=== PATIENT | female | born 1945 | race Caucasian/White ===

== ENCOUNTER 2023-08-19 13:12 | Outpatient (OUT) | payer MEDICARE, SELFPAY ==
--- NOTE | 2023-08-19 15:48 | P.CN_ITS ---
Consult Note: HPI Data of Consult Patient: new to practice Consult date: 08/19/23 Requesting Physician: Mere Woodard MD Primary Care Provider: YOLA AMES Consult Narrative Reason for consult: low back, left hip pain Narrative: 78yof who presents for evaluation. worsening low back and left hip pain. imaging shows severe scoliosis with degenerative changes. had left hip replaced, though states this pain feels different. primarily utilizes tylenol, which does not help. has tried >6 weeks of provider directed home exercises, with minimal benefit. denies adverse med side effects. cc:: CC: Mere Woodard MD Review of Systems ROS Status of ROS 10 or more systems reviewed and unremark able except as noted in history and below Meds Home Medications and Allergies Home Medications ?Medication ?Instructions ?Recorded ?Confirmed ?Type acetaminophen 650 mg 650 mg PO Q12H PRN pain 08/19/23 08/19/23 History tablet,extended release (Tylenol Arthritis Pain) alendronate 70 mg tablet 70 mg PO QWEEK 08/19/23 08/19/23 History celecoxib 200 mg capsule (Celebrex) 200 mg PO BID 08/19/23 08/19/23 History famotidine 20 mg tablet 20 mg PO DAILY 08/19/23 08/19/23 History ferrous sulfate 325 mg (65 mg 325 mg PO DAILY 08/19/23 08/19/23 History iron) tablet (Feosol) ferrous sulfate 325 mg (65 mg 325 mg PO DAILY 08/19/23 08/19/23 History iron) tablet (Feosol) metoprolol succinate 25 mg 25 mg PO BID 08/19/23 08/19/23 History tablet,extended release 24 hr tolterodine 2 mg tablet 2 mg PO DAILY 08/19/23 08/19/23 History Allergies Allergy/AdvReac Type Severity Reaction Status Date / Time No Known Drug Allergies Allergy Verified 08/19/23 15:04 Exam Narrative Exam Narrative: Psych-alert and oriented x 3. Attentive and appropriate, constitutionally normal, displays normal mood and affect per situation. There are no obvious deficits in memory, reasoning, or intellect.? Skin-no obvious rashes, bruising, erythema noted to the patient's area of pain.? Extremities- extremities are warm with minimal edema and palpable pulses. Lumbar-tenderness to palpation noted in the lumbar spine and paraspinal musculat ure. Pain is elicited with flexion, extension, and lateral rotation of the lumbar spine. Range of motion is diminished with these motions. Facet loading maneuvers are positive.? Strength-noted to be unremarkable with the exception of decreased strength rated at 4 out of 5 in left quadriceps femoris, anterior tibialis. Sensory-no notable sensory deficits in the bilateral lower extremities to touch or pinprick in all dermatomal distributions with the exception to decreased sensation to the left L4, 5 dermatomal distribution Coordination remains intact.? Gait remains non-antalgic Assessment and Plan Assessment and Plan (1) Lumbar stenosis with neurogenic claudication: Plan 78yof who presents for evaluation. failed conservative measures, as noted. imaging reviewed. given worsening symptoms, will have her undergo lumbar mri without contrast. she is in agreement. meds reviewed, will trial celebrex 200mg bid prn. follow up after imaging.
== END 2023-08-19 13:13 | disposition home or self-care (01) ==
LOC: PM 13:13
PROVIDERS: PCP Family Medicine; Visit Provider Anesthesiology
DX: M48.062 Spinal stenosis, lumbar region with neurogenic claudication (principal)
CPT/HCPCS: G0463

== ENCOUNTER 2023-08-26 14:18 | Outpatient (OUT) | payer MEDICARE, SELFPAY ==
--- NOTE | 2023-08-26 14:23 | MR_ITS ---
[facility] [id number] Patient Name: NIKKY GUTIERREZ MRN: [id number] date: 1945 Sex: F Assigned Patient Location: MRI Current Patient Location: MRI Accession/Order Number: [id number] Exam Date: 08/26/2023 14:42 Report Date: 08/26/2023 15:58 At the request of: KAILA HART Procedure: MR lumbar spine wo con MR lumbar spine wo con, 08/26/2023 2:42 PM EDT INDICATION: lumbar Stenosis COMPARISON: There is no appropriate prior study for comparison. TECHNIQUE: Multiplanar, multisequential MRI images of lumbar spine were obtained without contrast. FINDINGS: For dictation purposes, the lowest complete disc space in the lumbar spine considered as L5-S1. There is significant dextroscoliosis centered on L3-L4. The vertebral height is relatively preserved. Bilateral renal lesions with T2 prolongation not fully characterized by this study and statistically may suggest simple renal cysts. The conus medullaris is at the level of L1. No signal abnormality within the visualized spinal cord is noted. At the level of T12-L1 and L1-L2, there are disc bulge with moderate bilateral neuroforaminal narrowing and no canal stenosis. At the level of L2-L3, there are disc bulge with mild right and severe left neuroforaminal narrowing and no canal stenosis. At the level of L3-4, there are disc bulge with mild bilateral neuroforaminal narrowing and no canal stenosis. At the level of L4-5, there are disc bulge with mild left and moderate right neuroforaminal narrowing and mild canal stenosis. At the level of L5-S1, there are disc bulge with superimposed central annular fissure mild left and moderate right neuroforaminal narrowing and no canal stenosis. The paraspinal muscles are unremarkable. MR/MR lumbar spine wo con IMPRESSION: Severe dextroscoliosis with moderate degenerative changes of lumbar spine in particular at L2-L3 and L4-5. Electronically authenticated by: HOMAR SAENZ Date: 08/26/2023 15:58
== END 2023-08-26 14:19 | disposition home or self-care (01) ==
LOC: MRI 14:18
PROVIDERS: PCP Family Medicine; Visit Provider Anesthesiology
DX: M48.062 Spinal stenosis, lumbar region with neurogenic claudication (principal); M51.36 Other intervertebral disc degeneration, lumbar region
CPT/HCPCS: 72148

== ENCOUNTER 2023-08-29 08:54 | Outpatient (OUT) | payer MEDICARE, SELFPAY ==
--- NOTE | 2023-08-29 09:41 | P.CN_ITS ---
Consult Note: HPI Data of Consult Patient: new to practice Consult date: 08/19/23 Requesting Physician: Teresa Lynn NP Primary Care Provider: YOLA AMES Consult Narrative Reason for consult: low back, left hip pain Narrative: 78yof who presents for evaluation. worsening low back and left hip pain. imaging shows severe scoliosis with degenerative changes. had left hip replaced, though states this pain feels different. primarily utilizes tylenol, which does not help. has tried >6 weeks of provider directed home exercises, with minimal benefit. denies adverse med side effects. recent lumbar MRI consistent with degenerative changes and lumbar stenosis. has only taken celebrex once or twice without side effects, unsure of improvement or not. cc:: CC: Teresa Lynn NP Review of Systems ROS Status of ROS 10 or more systems reviewed and unremark able except as noted in history and below Musculoskeletal Reports: back pain and joint pain Meds Home Medications and Allergies Home Medications ?Medication ?Instructions ?Recorded ?Confirmed ?Type acetaminophen 650 mg 650 mg PO Q12H PRN pain 08/19/23 08/19/23 History tablet,extended release (Tylenol Arthritis Pain) alendronate 70 mg tablet 70 mg PO QWEEK 08/19/23 08/19/23 History celecoxib 200 mg capsule (Celebrex) 200 mg PO BID 08/19/23 08/19/23 History famotidine 20 mg tablet 20 mg PO DAILY 08/19/23 08/19/23 History ferrous sulfate 325 mg (65 mg 325 mg PO DAILY 08/19/23 08/19/23 History iron) tablet (Feosol) ferrous sulfate 325 mg (65 mg 325 mg PO DAILY 08/19/23 08/19/23 History iron) tablet (Feosol) metoprolol succinate 25 mg 25 mg PO BID 08/19/23 08/19/23 History tablet,extended release 24 hr tolterodine 2 mg tablet 2 mg PO DAILY 08/19/23 08/19/23 History Allergies Allergy/AdvReac Type Severity Reaction Status Date / Time No Known Drug Allergies Allergy Verified 08/19/23 15:04 Exam Constitutional Documenting provider has reviewed patient's vital signs: yes Common normals: no apparent distress, oriented x3, healthy appearing, alert and well nourished General appearance: cooperative HENMT Common normals: normocephalic, hearing grossly normal bilaterally and moist oral mucous membranes Head and scalp: normocephalic Eye Common normals: PERRL Pupil: PERRL Neck & C-Spine Common normals: full ROM General: normal visual inspection Chest Common normals: inspection of chest normal Respiratory Common normals: normal respiratory effort, no retractions and no use of accessory muscles Back & Pelvis Lumbar spine/lower back: lumbar spinal tenderness and straight leg raise negative bilaterally Sacroiliac joints: SI joint(s) abnormal (left positive [facility]) Other: decreased sensation following left L2,3,4 dermatomal pattern, increased with ambulation and activity Neuro Common normals: oriented x3, CN's II-XII intact bilaterally, moves all extremities, no focal motor deficits, no sensory deficits noted and deep tendon reflexes 2+ bilaterally Sensorium/orientation: alert Motor exam: strength 5/5 throughout and no movement abnormalities noted Psych Common normals: mental status grossly normal, thought process normal, cooperative, affect normal, speech normal and activity/motor behavior normal Speech: normal speech Thought process: normal thought process Results Imaging Lumbar MRI: Radiologist's impression: At the level of T12-L1 and L1-L2, there are disc bulge with moderate bilateral neuroforaminal narrowing and no canal stenosis. At the level of L2-L3, there are disc bulge with mild right and severe left neuroforaminal narrowing and no canal stenosis. At the level of L3-4, there are disc bulge with mild bilateral neuroforaminal narrowing and no canal stenosis. At the level of L4-5, there are disc bulge with mild left and moderate right neuroforaminal narrowing and mild canal stenosis. At the level of L5-S1, there are disc bulge with superimposed central annular fissure mild left and moderate right neuroforaminal narrowing and no canal stenosis. The paraspinal muscles are unremarkable. Assessment and Plan Assessment and Plan (1) Lumbar stenosis with neurogenic claudication: Assessment and Plan: The patient has had over 3 months of moderate to severe low back and left leg pain with functional impairment and inadequate response to conservative care including NSAIDS (unless there are contraindication such as concurrent blood thinners), multiple oral or topical pain medications, and home exercise program/physical therapy.? Patient has completed >6 weeks of guided home exercise program and/or formal physical therapy program without relief of their symptoms.? I have reviewed the imaging of the lumbar spine and no red flags were identified.? We discussed the risks and benefits of the procedure with the patient, and we are NOT planning on using sedation as outlined in the guidelines from Medicare unless there is a documented reason that sedation would be strongly recommended.?? ?The procedure will be completed with fluoroscopic guidance.? (2) Sacroiliitis: Plan left L2-3 L3-4 TFESI under fluoroscopy left SIJ injection under fluoroscopy encouraged celebrex 200mg BID PRN, has taken once or twice without side effects continue HEP as tolerated f/u 2 weeks after injection
== END 2023-08-29 08:55 | disposition home or self-care (01) ==
LOC: PM 08:54
PROVIDERS: PCP Family Medicine; Visit Provider Nurse Practitioner
DX: M48.062 Spinal stenosis, lumbar region with neurogenic claudication (principal); M46.1 Sacroiliitis, not elsewhere classified
CPT/HCPCS: G0463

== ENCOUNTER 2023-09-16 10:26 | Day surgery (SDC) | payer MEDICARE, SELFPAY ==
--- OUTSIDE RECORDS SUMMARY | 2023-09-16 10:35 | XMS_ITS | CCD ---
Author Organization [facility] Care Team Providers Care Clinical Resource Coordinator Name Role Phone Bneji Cantrell MD Unavailable [phone] Lisandra Jimenez MD Primary Care Provider [phone] Tony DE LA CRUZ, Lisandra Kwong Primary Care Provider Vance DE LA CRUZ, Mere Moon Attending Unavailable TONY, LISANDRA Kwong Attending Unavailable APLING, FLORENCE Duenas Attending Unavailable APLING, FLORENCE Duenas Referring Unavailable TONY, LISANDRA Kwong Attending Unavailable APLING, FLORENCE Duenas Attending Unavailable APLING, FLORENCE Duenas Attending Unavailable TONY, LISANDRA Kwong Attending Unavailable LEIAYANETH KOTHARI Attending Unavailable TONY, LISANDRA Kwong Referring Unavailable BOYCE, BELÉN Attending Unavailable TONY, LISANDRA Kwong Referring Unavailable BOYCE, BELÉN Attending Unavailable TONY, LISANDRA Kwong Referring Unavailable BOYCE, BELÉN Attending Unavailable TONY, LISANDRA Varghese Referring Unavailable LEAIYANETH KOTHARI Attending Unavailable TONY, LISANDRA Kwong Referring Unavailable BOYCE, BELÉN Attending Unavailable TONY, LISANDRA Varghese Referring Unavailable LEIAYANETH KOTHARI Attending Unavailable TONY, LISANDRA Varghese Referring Unavailable CLINTDENISHA CAGE Attending Unavailable Allergies Allergy Classification Reported Allergen(s) Allergy Type Date of Onset Reaction(s) Facility (8 sources) diphenhydrAMINE Drug Allergy [address] [facility] (8 sources) Sulfonamides (Antibiotic) Drug Allergy 2 Other (See Comments) [facility] Medications Current Medications Medication Drug Class(es) Dates Sig (Normalized) Sig (Original) acetaminophen 500 mg oral tablet (8 sources) take 1 tablet by mouth every six hours as needed for pain acetaminophen (TYLENOL EXTRA STRENGTH) 500 mg tablet Take 1 tablet (500 mg total) by mouth every 6 (six) hours as needed for pain. 0 Active Acetaminophen (T YLENOL 8 HOUR ARTHRITIS PAIN PO) Tylenol Arthritis Pain 0 Active alendronic acid 70 mg oral tablet (8 sources) Bisphosphonate Start: 04-16-2022 alendronate (F OSAMAX) 70 mg tablet Take 1 tablet (70 mg total) by mouth every 7 days. Takes it every Saturday 0 04/16/2022 Active take 1 tablet by mouth every we k alendronate (Fosamax) 70 MG tablet 1 TABLET ORALLY ONCE A WEEK ON EMPTY STOMACH WITH FULL GALSS OF WATER AND STAY UPRIGHT FOR 30 MINS 0 Active azelastine hydrochloride 0.5 mg/ml ophthalmic solution (8 sources) Histamine-1 Receptor Antagonist take 1 drop(s) into the eye(s) in the morning azelastine (OPTIVAR) 0.05 % ophthalmic solution Administer 1 drop to both eyes in the morning and 1 drop before bedtime. 0 Active take 1 drop(s) into the eye(s) twice daily azelastine (Optivar) 0.05 % ophthalmic solution INSTILL 1 DROP INTO BOTH EYES TWICE A DAY Ophthalmic for 90 Days 0 Active docusate sodium 100 mg oral capsule (3 sources) take 1 capsule by mouth in the morning docusate sodium (Colace) 100 MG capsule Take 100 mg by mouth in the morning and 100 mg before bedtime. 0 Active famotidine 20 mg oral tablet (8 sources) Histamine-2 Receptor Antagonist Start: 02-05-20 23 take 1 tablet by mouth once daily famotidine (Pepcid) 20 MG tablet Indications: Gastroesophageal reflux disease without esophagitis TAKE 1 TABLET BY MOUTH EVERY DAY 90 tablet 3 02/04/2023 Active ferrous fumarate-vitamin C ER (Lenin-Sequeles 65-25) (6 sources) End: 06-10-19 24 ferrous fumarate-vitamin C ER (Lenin-Sequeles 65-25) Take 1 tablet by mouth in the morning and 1 tablet at noon and 1 tablet in the evening. Take with meals. Do not crush, chew, or split.. 0 06/10/2023 Discontinued (Therapy completed) ferrous fumarate -vitamin C ER (Lenin-Sequeles 65-25) Take 1 tablet by mouth in the morning and 1 tablet at noon and 1 tablet in the evening. Take with meals. Do not crush, chew, or split.. 0 Active ferrous sulfate 325 mg delayed release oral tablet (7 sources) Start: 04-25-2023 take 1 tablet by mouth at mealtime ferrous sulfate 325 (65 Fe) MG EC tablet TAKE 1 TABLET (325 MG) BY MOUTH IN THE MORNING. TAKE WITH MEALS. DO NOT CRUSH, CHEW, OR SPLIT.. 0 04/25/2023 Active fluticasone propionate 0.05 mg/actuat metered dose nasal spray (9 sources) Corticosteroid Start: 06-06-2023 take 2 spray(s) nasal route once daily fluticasone (Flonase) 50 MCG/ACT nasal spray Indications: Postnasal discharge USE 2 SPRAYS IN EACH NOSTRIL ONCE A DAY 48 mL 3 06/06/2023 Active Start: 02-12-2023 End: 06-06-2023 take 1-2 spray(s) nasal route in the morning fluticasone (Flonase) 50 MCG/ACT nasal spray Indications: Postnasal discharge Administer 1-2 sprays into each nostril in the morning. Shake gently. Before first use, prime pump. After use, clean tip and replace cap.. 16 g 2 02/12/2023 06/06/2023 Discontinued take 1 spray(s) nasa l route in the morning fluticasone propionate (FLONASE) 50 mcg/actuation nasal spray Administer 1 spray into each nostril in the morning. 0 Active methylPREDNISolone (7 sources) Corticosteroid Start: 06-05-2023 End: 06-10-2023 take 1 tablet by mouth once methylPREDNISolone (Medrol Dospak) 4 MG tablets Indications: DDD (degenerative disc disease), lumbar Take 1 tablet (4 mg) by mouth 1 (one) time for 1 dose Use as directed by package instructions 1 tablet 0 06/05/2023 06/10/2023 Discontinued (Therapy completed) Start: 06-05-2023 methylPREDNISo lone (Medrol Dospak) 4 MG tablets TAKE 6 TABLETS ON DAY 1 DIRECTED ON PACKAGE AND DECREASE BY 1 TAB EACH DAY FOR A TOTAL OF 6 DAYS 0 06/05/2023 Active metoprolol tartrate 25 mg oral tablet (8 sources) beta-Adrenergic Rosa Start: 01-01-2023 End: 02-29-2024 take 1 tablet by mouth in the morning metoprolol tartrate (Lopressor) 25 MG tablet Indications: Tachycardia Take 1 tablet (25 mg) by mouth in the morning and 1 tablet (25 mg) before bedtime. 180 tablet 3 03/01/2023 02/29/2024 Active oxyCODONE hydrochloride 5 mg oral tablet (1 source) Opioid Agonist take 1 tablet by mouth every six hours as needed for pain oxyCODONE (ROXICODONE) 5 mg immediate release tablet Take 1 tablet (5 mg total) by mouth every 6 (six) hours as needed for pain. For 5 days after sugery Max Daily Amount: 20 mg 0 Active 24 hr tolterodine tartrate 2 mg extended release oral capsule (7 sources) Cholinergic Muscarinic Antagonist Start: 04-30-2023 End: 04-29-2024 take 1 capsule by mouth every twenty-four hours in the morning tolterodine LA (Detrol LA) 2 MG 24 hr capsule Indications: Mixed stress and urge urinary incontinence Take 1 capsule (2 mg) by mouth in the morning. Do not crush, chew, or split.. 30 capsule 11 04/30/2023 04/29/2024 Active Problems Active Problems Problem Classification Problem Date Documented Date Episodic/Chronic Acquired foot deformities (15 sources) Acquired hallux valgus; Translations: [Hallux valgus (acquired), unspecified foot] Onset: 02-22-2022 10-10-2022 Chronic Esophageal disorders (17 sources) Gastroesophageal reflux disease; Translations: [Gastro-esophageal reflux disease without esophagitis] Onset: 02-22-2022 10-10-2022 Chronic Osteoarthritis (20 sources) Osteoarthritis of left hip joint; Translations: [Unilateral primary osteoarthritis, left hip] Onset: 02-22-2022 Resolved: 12-30-2022 10-10-2022 Chronic Osteoporosis (17 sources) Senile osteoporosis; Translations: [Age-related osteoporosis without current pathological fracture] Onset: 02-22-2022 10-10-2022 Chronic Other acquired deformities (8 sources) Other secondary scoliosis, site unspecified; Translations: [Disorder of bone and cartilage, unspecified] Onset: 02-22-2022 10-10-2022 Chronic Other acquired deformities (2 sources) Scoliosis deformity of spine; Translations: [Scoliosis, unspecified] 06-05-2023 Chronic Other bone disease and musculoskeletal deformities (8 sources) Idiopathic scoliosis of thoracic and lumbar spine; Translations: [Other idiopathic scoliosis, thoracolumbar region] Onset: 02-22-2022 11-29-2022 Chronic Other congenital anomalies (7 sources) Porokeratosis; Translations: [Other specified congenital malformations of skin] Onset: 11-29-2022 11-29-2022 Chronic Other connective tissue disease (2 sources) History of total hip arthroplasty; Translations: [Presence of left artificial hip joint] 06-04-2023 Chronic Other upper respiratory infections (1 source) Nasal discharge; Translations: [Postnasal drip] 06-06-2023 Episodic Spondylosis; intervertebral disc disorders; other back problems (20 sources) Lumbar arthritis; Translations: [Spondylosis without myelopathy or radiculopathy, lumbar region] Onset: 02-22-2022 10-10-2022 Chronic Past or Other Problems Problem Classification Problem Date Documented Date Episodic/Chronic Acute posthemorrhagic anemia (10 sources) Anemia following acute postoperative blood loss; Translations: [Acute posthemorrhagic anemia] Onset: 12-30-2022 01-09-2023 Episodic Cardiac dysrhythmias (8 sources) Tachycardia; Translations: [Tachycardia, unspecified] Onset: 12-28-2022 01-09-2023 Episodic Mood disorders (3 sources) Mood disorders Onset: 06-10-2023 06-10-2023 Other connective tissue disease (1 source) History of repair of hip joint; Translations: [Presence of left artificial hip joint] Onset: 12-29-2022 Resolved: 12-30-2022 12-30-2022 Chronic Spondylosis; intervertebral disc disorders; other back problems (10 sources) Disorder of sacrum; Translations: [Sacrococcygeal disorders, not elsewhere classified] Onset: 04-05-2022 11-29-2022 Episodic Results Test Name Value Interpretation Reference Range Facil ity XR Lumbar spine 4 [facility] Result: June 05, 2023 x-rays AP lateral and lateral flexion-extension views of the lumbar spine demonstrate severe scoliosis apex to the right at the thoracolumbar junction of nearly 90 degrees curvature in the coronal plane. There are no definitive fractures identified. Impression: Severe scoliosis Corwin Lui D.O. [facility] XR Lumbar spine 4 ViewsOrder ed By: Denisha Lui on 06-06-2023 [facility] [employer] Work Phone: XR Lumbar spine 4 [facility] Radiology Study observation (narrative) [facility] SCREENING MAMMOGRAM W/JORDAN, BILATERAL*on 04-10-2021 SCREENING MAMMOGRAM W/JORDAN, BILATERAL* COMPARISON: Dating back to March 01, 2020 and February 25, 2019. TECHNIQUE: 2D and 3D Tomosynthesis of the right and left breasts was performed. FINDINGS: Breast composition demonstrates heterogeneously dense parenchyma. Overall appearance is stable. No suspicious microcalcifications, dominant mass lesions, or distortion is present. IMPRESSION: BIRADS 1 - NEGATIVE MAMMOGRAM Board Certified Radiologist. Accredited by the ACR and FDA. MAMMOGRAPHY IS VERY IMPORTANT TO YOUR HEALTH. THE CURRENT [employer] [employer] GUIDELINES RECOMMENDS ANNUAL MAMMOGRAPHY BEGINNING AT AGE 40 THIS FACILITY USES A REMINDER SYSTEM TO ENSURE ALL PATIENTS RECEIVE REMINDER NOTIFICATIONS AT THE APPROPRIATE TIME BASED ON THE RECOMMENDATIONS OF THIS EXAM. Report reported and signed by Filiberto Love on 04/10/2021 1211 [facility] Building Custodian Vital Signs Date Time Vital Sign Value Performing Clinician Juanjosei michael 06-10-2023 10:05-0500 Body height 154.9 cm Lisandra Jimenez MD Work Phone: [facility] 06-10-2023 10:05-0500 Body mass index (BMI) [Ratio] 20.6 kg/m2 Lisandra Jimenez MD Work Phone: [facility] 06-10-2023 10:05-0500 Body weight 49.44 kg Lisandra Jimenez MD Work Phone: [facility] 06-10-2023 10:05-0500 Diastolic blood pressure 68 mm[Hg] Lisandra Jimenez MD Work Phone: [facility] 06-10-2023 10:05-0500 Heart rate 76 /min Lisandra Jimenez MD Work Phone: [facility] 06-10-2023 10:05-0500 Respiratory rate 16 /min Lisandra Jimenez MD Work Phone: [facility] 06-10-2023 10:05-0500 Systolic blood pressure 130 mm[Hg] Lisandra Jimenez MD Work Phone: [facility] Encounters Encounter Date Encounter Type Care Provider Facility Start: 09-12-2023 End: 09-12-2023 ambulatory YANETH DUPREE Not Available Start: 09-09-2023 End: 09-09-2023 ambulatory BELÉN BOYCE Not Available Start: 09-06-2023 End: 09-06-2023 ambulatory YANETH DUPREE Not Available Start: 09-04-2023 End: 09-04-2023 ambulatory BELÉN BOYCE Not Available Start: 09-02-2023 End: 09-02-2023 ambulatory BELÉN BOYCE Not Available Start: 08-26-2023 End: 08-26-2023 ambulatory BELÉN BOYCE Not Available Start: 08-23-2023 End: 08-23-2023 ambulatory YANETH DUPREE Not Available Start: 08-19-2023 End: 08-20-2023 ambulatory Mere Woodard MD Facility:[facility] Start: 08-02-2023 Telephone encounter Maya Villalobos RN [facility] Comment on above: Records, transfer to [facility] Start: 07-30-2023 End: 07-30-2023 ambulatory LISANDRA JIMENEZ Not Available Start: 07-17-2023 End: 07-17-2023 ambulatory FLORENCE B APLING Not Available Start: 06-26-2023 End: 06-26-2023 ambulatory FLORENCE B APLING Not Available Start: 06-11-2023 Refill Lisandra Price Work Phone: [facility] Start: 06-10-2023 Bamboo flowsheet Lisandra Jimenez MD Work Phone: [facility] Start: 06-10-2023 Bamboo flowsheet Lisandra Jimenez MD Work Phone: [facility] Start: 06-10-2023 End: 06-10-2023 ambulatory LISANDRA JIMENEZ Not Available Start: 06-10-2023 End: 06-10-2023 Patient encounter procedure Lisandra Jimenez MD Work Phone: [facility] Comment on above: Routine general medi vicente examination at a [facility] care facility (Primary Dx); Gastroesophageal reflux disease without esophagitis; Arthritis, lumbar spine; Primary osteoarthritis of left hip; Postoperative anemia due to acute blood loss; Age-related osteoporosis without current pathological fracture ([facility] Start: 06-10-2023 End: 06-10-2023 Patient encounter status Lisandra Jimenez MD Work Phone: [facility] Work Phone: Start: 06-06-2023 Refshani Yang Work Phone: [facility] Comment on above: Postnasal discharge Start: 06-05-2023 End: 06-06-2023 ambulatory FLORENCE Duenas APLTANA Not Available Start: 06-05-2023 End: 06-05-2023 ambulatory FLORENCE Duenas APLING Not Available Start: 06-05-2023 End: 06-05-2023 Office outpatient visit 15 minutes Florence Duenas Josetana [facility] Work Phone: [facility] Comment on above: S/P total left hip a rthroplasty (Primary Dx); Low back pain without sciatica, unspecified back pain laterality, unspecified chronicity; DDD (degenerative disc disease), lumbar; Scoliosis of thoracolumbar spine, unspecified scoliosis type Start: 04-30-2023 End: 04-30-2023 ambulatory LISANDRA JIMENEZ Not Available Start: 04-02-2023 End: 04-02-2023 ambulatory DENISHA LUI Not Available Procedures Date Procedure Procedure Detail Performing Clinician Start: 06-05-2023 Radex spine lumbosac ral minimum 4 views Florence Duenas Josetana [facility] Work Phone: Plan of Treatment Date Care Activity Detail Author Start: 06-10-2024 Medicare Annual Wellness (AWV) Medicare Annual Wellness (AWV) [facility] Start: 01-02-2024 Adult BMI Screening Adult BMI Screen ing [facility] Start: 12-29-2023 Influenza vaccination Influenza Vacc ine [facility] Start: 12-29-2023 Tobacco Screening Tobacco Screening [facility] Start: 12-09-2023 End: 12-09-2023 Patient encounter procedure 12/09/2023 9:40 AM EDT Office Visit [facility] [address] [place] [address] Lisandra Jimenez MD [address] [place], [place] [id number] [facility] Start: 08-01-2023 Medicare Annual Wellness (AWV) Medicare Annual Wellness (AWV) [facility] Start: 07-30-2023 End: 07-30-2023 Patient encounter procedure 07/30/2023 9:00 AM EDT Office Visit [facility] [address] [place] [address] Lisandra Jimenez MD [address] [place] [address] [facility] Start: 07-01-2023 End: 07-01-2023 Patient encounter procedure 07/01/2023 9:00 AM EST Office Visit [facility] [address] [place] [address] Florence Robins, [facility] [address] [place] [address] [facility] Start: 06-26-2023 End: 06-26-2023 Patient encounter procedure 06/26/2023 10:00 AM EST Office Visit [facility] [address] [place] [address] Florence Robins, [facility] [address] [place] [address] [facility] Start: 06-10-2023 End: 06-10-2023 Patient encounter procedure [facility] Comment on above: Arrived Start: 02-10-2023 DTaP,Tdap and Td Vaccines (3 - Td or Tdap) DTaP,Tdap and Td Vaccines (3 - T[facility] Start: 12-28-2022 COVID-19 Vaccine ( season) COVID-19 Vaccine ( season) [facility] Start: 2010 [facility] Start: 1957 [facility] Start: [facility] Medicare Annual Wellness Visit Medicare Annual Wellness Visit [facility] Immunizations Immunization Date Immunization Notes Care Provider Fa cilinavdeep 04-08-2023 RSV, recombinant, protein subunit RSVpreF, adjuvant reconstitu, 120mcg/0.5mL, PF (Arexvy) Lisandra Jimenez MD Work Phone: [facility] 01-28-2023 Influenza, High-dose Seasonal, Quadrivalent, Preservative Free Loli Rivera [facility] Work Phone: [facility] Work Phone: 02-06-2022 Influenza, High-dose Seasonal, Quadrivalent, Preservative Free Loli Rivera [facility] Work Phone: [facility] 02-06-2022 Moderna Bivalent Price ster Vaccination Loli Rivera [facility] Work Phone: [facility] 02-06-2022 Moderna SARS-CoV-2 50mcg/0.5mL Booster Lolibrady Rivera [facility] Work Phone: [facility] 02-06-2022 influenza virus vacc ine, unspecified formulation Maya Villalobos RN [facility] 01-26-2021 Influenza, High-dose Seasonal, Quadrivalent, Preservative Free Loli Rivera [facility] Work Phone: [facility] 01-27-2020 Influenza, High-dose Seasonal, Quadrivalent, Preservative Free Loli Rivera [facility] Work Phone: [facility] 03-12-2019 zoster vaccine recombinant Loli Rivera [facility] Work Phone: [facility] 01-26-2019 zoster vaccine, live Loli W olf [facility] Work Phone: [facility] 01-22-2019 influenza, high dose seasonal, preservative-free Loli Rivera [facility] Work Phone: [facility] 01-22-2019 Influenza, High-dose Seasonal, Quadrivalent, Preservative Free Loli Rivera [facility] Work Phone: [facility] 01-22-2019 zoster vaccine recombinant Loli Rivera [facility] Work Phone: [facility] 01-20-2018 influenza, high dose seasonal, preservative-free Loli Rivera [facility] Work Phone: [facility] 01-20-2018 influenza, injectabl e, quadrivalent, preservative free Loli Rivera [facility] Work Phone: [facility] 01-18-2017 influenza, high dose seasonal, preservative-free Loli Rivera [facility] Work Phone: [facility] 01-18-2017 Influenza, High-dose Seasonal, Quadrivalent, Preservative Free Loli Rivera [facility] Work Phone: [facility] 01-17-2016 influenza, high dose seasonal, preservative-free Loli Rivera [facility] Work Phone: [facility] 01-17-2016 pneumococcal conjuga te vaccine, 13 valent Lolibrady Rivera [facility] Work Phone: [facility] 01-12-2015 influenza, high dose seasonal, preservative-free Loli Rivera [facility] Work Phone: [facility] 01-11-2014 influenza, high dose seasonal, preservative-free Loli Rivera [facility] Work Phone: [facility] 02-10-2013 tetanus and diphther ia toxoids, adsorbed, preservative free, for adult use (5 Lf of tetanus toxoid and 2 Lf of diphtheria toxoid) Loli Rivera [facility] Work Phone: [facility] 02-10-2013 tetanus toxoid, redu jessica diphtheria toxoid, and acellular pertussis vaccine, adsorbed Loli Rivera [facility] Work Phone: [facility] 02-06-2013 seasonal influenza, intradermal, preservative free Loli Rivera [facility] Work Phone: [facility] 12-23-2012 zoster vaccine, live Loli W olf [facility] Work Phone: [facility] 12-12-2012 pneumococcal polysaccharide vaccine, 23 valent Loli Rivera [facility] Work Phone: [facility] 02-06-2012 influenza, seasonal, injectable, preservative free Loli Rivera [facility] Work Phone: [facility] 04-17-2004 influenza, seasonal, injectable Loli Rivera [facility] Work Phone: [facility] 04-27-2003 influenza, seasonal, injectable Loli Rivera [facility] Work Phone: [facility] 04-27-2002 influenza, seasonal, injectable Loli Rivera [facility] Work Phone: [facility] 04-01-2001 influenza, seasonal, injectable Loli Rivera [facility] Work Phone: [facility] 03-08-1999 pneumococcal polysaccharide vaccine, 23 valent Loli Rivera [facility] Work Phone: [facility] Payers Date Payer Category Payer Private Health Insurance 2021 Medicare [id number] 2021 Medicare [id number] 1945 Unknown [id number] 2.16. [id number] 1945 Unknown [id number] 2.16.84 [id number] 1945 Unknown [id number] 2.16.84 [id number] 1945 Unknown [id number] 2.16.84 [id number] 1945 Unknown [id number] 2.16.84 [id number] 1945 Unknown [id number] 2.16.84 [id number] 1945 Unknown [id number] 2.16.84 [id number] 1945 Unknown [id number] 2.16.84 0.1.905506.3.579.2.1259 1945 Unknown [id number] 2.16.84 0.1.261507.3.579.2.125 1945 Unknown [id number] 2.16.84 0.1.006366.3.579.2.1259 1945 Unknown [id number] 2.16.84 0.1.688946.3.579.2.9 1945 Unknown [id number] 2.16.84 [id number] 1945 Unknown [id number] 2.16.84 [id number] 1945 Unknown [id number] 2.16.84 [id number] 1945 Unknown [id number] 2.16.840 .[id number] 1945 Unknown [id number] 2.16.840 .[id number] Social History Date Type Detail Facility Start: 05-24-2022 End: 10-10-2022 Tobacco smoking status [facility] Never smoked tobacco [facility] Start: 05-24-2022 End: 10-10-2022 Tobacco use and exposure Smokeless tobacco non-user [facility] Start: 06-05-2023 End: 06-10-2023 Alcohol intake Lifetime non-drinker (finding) [facility] Start: 06-09-2020 End: 12-10-2022 History of Social function [facility] Start: 06-09-2020 End: 12-10-2022 Humiliation, Afraid, Rape, and Kick questionnaire [HARK] [facility] Within the last year , have you been afraid of your partner or ex-partner? No [facility] Attends [employer] Not on file [facility] Do you belong to any clubs or organizations such as alevism groups, unions, fraternal or athletic groups, or school groups? Yes [facility] Are you now , , , , never or living with a partner? Never [facility] How often to you hav e a drink containing alcohol? Never [facility] (I/We) worried wheth er (my/our) food would run out before (I/we) got money to buy more. Never true [facility] Start: 1945 Sex Assigned At Not on file [facility] Start: 07-11-2022 Gender identity Identifies as female gender (finding) [facility] Start: 12-28-2022 Alcohol intake Current non-drinker of alcohol (finding) [facility] Medical Equipment Procedure Code Equipment Code Equipment Origin al Text Equipment Identifier Dates Lens Iol Ultrase rt 11.5d - [id number] - [id number] Start: 04-03-2018 Lens Iol Ultrase rt 13.0d - [id number] - [id number] Start: 08-28-2018 Head Fem 32mm 0m m Vrsy Cocr Hip Rpl [id number] - [id number] - [id number] FDA Start: 12-26-2022 Screw Bn 15mm 6. [address]mm [address] Hip Actb Trlg Strl Rpl [id number] - [id number] - [id number] Start: 12-26-2022 Goals Date Patient Goal Desired Activity /State Personal health goal Comment on above: Formatting of this n ote might be different from the original. Evaluation of progress towards goal: Home with support from friend (staying with pt) and [facility] Clinical Notes 06-05-2023 to 08-02-2023 Telephone Encounter - Maya Villalobos RN - 08/02/2023 2:27 PM EDTTelephone Encounter - Maya Villalobos RN - 08/02/2023 2:27 PM EDTTelephone Encounter - Davina Ayers - 06/11/2023 4:37 PM EST Note Date & Type Note Facility 08-02-2023 Miscellaneous Notes Received a phone call from [facility] for patient records to be transferred. documented in this encounter [facility] 08-02-2023 Telephone encounter Note Received a phone call from [facility] for patient records to be transferred. [facility] 06-11-2023 Telephone encounter Note PT Calling to check status of this request, unsure as how to explain the denial of the refill. [facility] 06-11-2023 Miscellaneous Notes PT Calling to check status of this request, unsure as how to explain the denial of the refill. Medication refused due to failing protocol. Requested Prescriptions Pending Prescriptions Disp Refills methylPREDNISolone (Medrol Dospak) 4 MG tablets 21 tablet Sig: Follow schedule on package instructions There is no refill protocol information for this order documented in this encounter [facility] 06-11-2023 Telephone encounter Note Medication refused due to failing protocol. Requested Prescriptions Pending Prescriptions Disp Refills methylPREDNISolone (Medrol Dospak) 4 MG tablets 21 tablet Sig: Follow schedule on package instructions There is no refill protocol information for this order [facility] 06-10-2023 History of Present illness Narrative Nikky Maria is a 77 y.o. female presents with chief complaint of Medicare Annual Wellness Visit Subsequent HPI: HPI Over the past 2 weeks, how often have you been bothered by any of the following problems? Little interest or pleasure in doing things: Not at all Feeling down, depressed, or hopeless: Not at all Patient Health Questionnaire-2 Score: 0 Over the past 2 weeks, how often have you been bothered by any of the following problems? Trouble falling or staying asleep, or sleeping too much: Not at all Feeling tired or having little energy: Not at all Poor appetite or overeating: Not at all Feeling bad about yourself - or that you are a failure or have let yourself or your family down: Not at all Trouble concentrating on things, such as reading the newspaper or watching television: Not at all Moving or speaking so slowly that other people could have noticed? Or the opposite - being so fidgety or restless that you have been moving around a lot more than usual.: Not at all Thoughts that you would be better off or hurting yourself in some way: Not at all Patient Health Questionnaire-9 Score: 0 Miguel Fall Risk History of Falling, Immediate or Within 3 Months: Yes Secondary Diagnosis: No Ambulatory Aid: Crutches/cane/walker (while at [facility], after her hip surgery) Intravenous Therapy/Heparin Lock: No Gait/Transferring: Normal/bedrest/immobile Mental Status: Oriented to own ability Rivera Fall Risk Score: 40 Health Risk Assessment Form Do you need help eating, bathing, using the toilet, dressing, or getting around your home?: No Can you prepare your own meals?: Yes Can you do your own housework without help?: Yes Can you shop for groceries or clothes without help?: Yes Do you exercise for about 20 minutes 3 or more days a week?: Yes How confident are you that you can control and manage most of your health problems?: Very confident Can you mange your money, credit cards and accounts, pay bills and taxes?: Yes Vision Screening: Yes, no gross abnormalities Hearing Screening: Yes, no gross abnormalities Cognitive Screening Self Assessment: No overt cognitive deficiency is apparent by direct observation Three Word Registration: Apple, Watch, [place] Clock Drawing: Normal Clock - 2 Three Word Recall: All 3 words correct - 3 Total Score (0-5 Points): 5 Pain Assessment Pain Score: 0 - No pain Given prednisone by ortho for hip and low back pain which is helping She is home from rehab and reports doing well SUBJECTIVE: MEDICATIONS: Current Outpatient Medications Medication Instructions Acetaminophen (TYLENOL 8 HOUR ARTHRITIS PAIN PO) Tylenol Arthritis Pain alendronate (Fosamax) 70 MG tablet 1 TABLET ORALLY ONCE A WEEK ON EMPTY STOMACH WITH FULL GALSS OF WATER AND STAY UPRIGHT FOR 30 MINS azelastine (Optivar) 0.05 % ophthalmic solution INSTILL 1 DROP INTO BOTH EYES TWICE A DAY Ophthalmic for 90 Days docusate sodium (COLACE) 100 mg, Oral, 2 times daily famotidine (PEPCID) 20 mg, Oral, Daily ferrous sulfate 325 (65 Fe) MG EC tablet TAKE 1 TABLET (325 MG) BY MOUTH IN THE MORNING. TAKE WITH MEALS. DO NOT CRUSH, CHEW, OR SPLIT.. fluticasone (Flonase) 50 MCG/ACT nasal spray USE 2 SPRAYS IN EACH NOSTRIL ONCE A DAY methylPREDNISolone (Medrol Dospak) 4 MG tablets TAKE 6 TABLETS ON DAY 1 DIRECTED ON PACKAGE AND DECREASE BY 1 TAB EACH DAY FOR A TOTAL OF 6 DAYS metoprolol tartrate (LOPRESSOR) 25 mg, Oral, 2 times daily tolterodine LA (DETROL LA) 2 mg, Oral, Daily, Do not crush, chew, or split. REVIEW OF SYMPTOMS: Review of Systems Constitutional: Negative. Respiratory: Negative. Cardiovascular: Negative. Gastrointestinal: Negative. Neurological: Negative. Psychiatric/Behavioral: Negative. OBJECTIVE: Visit Vitals Ht 5' 1 Wt 109 lb BMI 20.60 kg/m Smoking Status Never BSA 1.46 m Physical Exam Constitutional: Appearance: Normal appearance. She is normal weight. HENT: Head: Normocephalic and atraumatic. Nose: Nose normal. Mouth/Throat: Mouth: Mucous membranes are moist. Eyes: Pupils: Pupils are equal, round, and reactive to light. Cardiovascular: Rate and Rhythm: Normal rate and regular rhythm. Heart sounds: No murmur heard. Pulmonary: Effort: Pulmonary effort is normal. Breath sounds: Normal breath sounds. No wheezing or rhonchi. Musculoskeletal: General: No swelling. Cervical back: Normal range of motion and neck supple. Right lower leg: No edema. Left lower leg: No edema. Skin: General: Skin is warm and dry. Findings: No rash. Neurological: Mental Status: She is alert and oriented to person, place, and time. Sensory: No sensory deficit. Gait: Gait normal. Psychiatric: Mood and Affect: Mood normal. Thought Content: Thought content normal. Judgment: Judgment normal. Ambulating with out assistance ASSESSMENT AND PLAN: Assessment/Plan Problem List Items Addressed This Visit Digestive GERD (gastroesophageal reflux disease) stable Musculoskeletal Osteoarthritis of left hip Per ortho Arthritis, lumbar spine Per ortho Hematologic Postoperative anemia due to acute blood loss Other Visit Diagnoses Routine general medical examination at a health care facility - Primary Osteoporosis - on fosamax Recovering well from joint replacement As of your medicare wellness visit , the medical team reviewed your chart and chronic problems and treatment. Your information regarding healthy diet, activity, immunizations, depression screening, advance directives , activities of daily living medications, cognitive screening and risk factors for disease were reviewed or addressed Recheck in 6months documented in this encounter [facility] 06-05-2023 History of Present illness Narrative Subjective Patient ID: Nikky Maria is a 77 y.o. female. LT Hip 5 months s/p LT ANDERSON 12/26/22. Mild stiffness after sitting for a while, loosens up when she gets up and move around. Denies N/T. She notes stinging that is in her flank that is intermittent in nature, she notes this has been going on for a couple of weeks or a little while she is unsure of when it began. Denies injury. Taking TYL 2 tabs bid prn. Pt is pleased with surgical outcome so far. Has been having stinging pains when walking x last few weeks. Comes and goes. She has been using a heating pad with some relief. Admits CBD cream with little relief. Denies ice. Pain is over low back and LT SI. Not in the hip joint. Notes it hurts to walk. Pain with prolonged sitting 7/10, with walking the pain subsides a little 5/10. Objective Left Hip Exam Muscle Strength Adduction: 4/5 Hip Musculoskeletal Exam Inspection Left Erythema: none Ecchymosis: none Edema: none Palpation Left Tenderness: present Greater trochanteric region pain: none Lower lumbar region pain comment: LT SI Range of Motion Range of motion additional comments: Pain with turning to the left and also side bending to the right Strength Left Extension: 4/5. Flexion: 4/5. Adduction: 4/5. Abduction: 4/5. Special Tests Left Impingement test: negative Trendelenburg test: negative XR lumbar spine complete 4+ views Imaging Result: June 05, 2023 x-rays AP lateral and lateral flexion-extension views of the lumbar spine demonstrate severe scoliosis apex to the right at the thoracolumbar junction of nearly 90 degrees curvature in the coronal plane. There are no definitive fractures identified. Impression: Severe scoliosis Corwin Lui D.O. Assessment/Plan Encounter Diagnoses: ICD-10-CM 1. S/P total left hip arthroplasty Z96.642 2. Low back pain without sciatica, unspecified back pain laterality, unspecified chronicity M54.50 XR lumbar spine complete 4+ views 3. DDD (degenerative disc disease), lumbar M51.36 methylPREDNISolone (Medrol Dospak) 4 MG tablets 4. Scoliosis of thoracolumbar spine, unspecified scoliosis type M41.9 Discussion of options, lidocaine patches and also OTC products, will try MDP, take as directed, no nsaids while taking MDP until 24 hrs after the last dose of MDP, may increase BP/HR , discussed pain management and she notes she has seen dr. Dee and she notes she does not want injections at this time. F/U in 2-3 weeks documented in this encounter [facility] Evaluation note Diagnosis Postnasal discharge Other diseases of nasal cavity and sinuses documented [facility] this [facility]* Diagnosis S/P total left hip arthroplasty- Primary Low back pain without sciatica, unspecified back pain laterality, unspecified chronicity DDD (degenerative disc disease), lumbar Degeneration of lumbar or lumbosacral intervertebral disc Scoliosis of thoracolumbar spine, unspecified scoliosis type documented in this encounter [facility]* Diagnosis Routine general medical examination at a health care facility- Primary Gastroesophageal reflux disease without esophagitis Esophageal reflux Arthritis, lumbar spine Primary osteoarthritis of left hip Postoperative anemia due to acute blood loss Acute posthemorrhagic anemia Age-related osteoporosis without current pathological fracture ([facility]) documented in this encounter [facility]Not on filedocumented in this [facility] Purpose Family History No Family History Records FoundNo Family History Records FoundNo Family History Records Found Advance Directives No Advanced Directives Records FoundDocuments on File Type Date Recorded 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 dical Specialist DATE CREATED AUTHOR AUTHOR'S ORGANIZ ATION 08/21/2023 [facility] DATE CREATED AUTHOR AUTHOR'S ORGANIZ ATION 09/14/[address] [facility] dical Specialists EPIC Reason for Visit (unrecogniz ed section and content) Reason Comments Med Refill Reason Comments Medicare Annual Wellness Visit Subsequen t Reason Onset Date Comments Records, transfer to [facility] 08/02/2023 Care Teams (unrecognized sec tion and content) Clinical Resource Coordinator Relationship Specialty Start Date End Date Benji Cantrell MD [address] [facility] [address] [place] [address] PCP - [employer] 04/29/22 Lisandra Jimenez MD [address] [place] [address] PCP - General Family Medicine 09/10/22 Clinical Resource Coordinator Relationship Specialty Start Date End Date Benji Cantrell MD [address] [facility] [address] [place] [address] PCP - [employer] 04/29/22 Lisandra Jimenez MD [address] [place] [address] PCP - General Family Medicine 09/10/22 Clinical Resource Coordinator Relationship Specialty Start Date End Date Benji Cantrell MD [address] [facility] [address] [place] [address] PCP - [employer] 04/29/22 Lisandra Jimenez MD [address] [facility] [place] [address] PCP - General Family Medicine 09/10/22 Clinical Resource Coordinator Relationship Specialty Start Date End Date Benji Cantrell MD [address] [facility] [address] [place] [address] PCP - [employer] 04/29/22 Lisandra Jimenez MD [address] [facility] [place] [address] PCP - General Family Medicine 09/10/22 Clinical Resource Coordinator Relationship Specialty Start Date End Date Benji Cantrell MD [address] [facility] [address] [place] [address] PCP - [facility] 04/29/22 Lisandra Jimenez MD [address] [place] [address] PCP - General Family Medicine 09/10/22 Clinical Resource Coordinator Relationship Specialty Start Date End Date Lisandra Jimenez MD [address] [place] [address] PCP - General Family Medicine 11/12/16 FOR RECORDS PERTAINING TO PATIENTS WHO ARE OR HAVE BEEN ENROLLED IN A CHEMICAL DEPENDENCY/SUBSTANCEABUSE PROGRAM, SOME INFORMATION MAY BE OMITTED. This clinical summary was aggregated from multiple sources. Caution should be exercised in using it in the provision of clinical care. This summary normalizes information from multiple sources, and as a consequence, information in this document may materially change the coding, format and clinical context of patient data. In addition, data may be omitted in some cases. CLINICAL DECISIONS SHOULD BE BASED ON THE PRIMARY CLINICAL RECORDS. [employer] provides no warranty or guarantee of the accuracy or completeness of information in this document.
[2023-09-16 10:56] VITALS: BP 124/72; PULSE 79; TEMP 36.4; O2SAT 93
[2023-09-16] MEDS: BUPIVACAINE HCL 0.25% PF 25 MG/10 ML VIAL INJ (11:16)
[2023-09-16] MEDS: 0.9 % SODIUM CHLORIDE 10 ML SYRINGE - SALINE FLUSH INJ (11:16)
[2023-09-16] MEDS: DEXAMETHASONE SOD PHOS 10 MG/ML VIAL INJ (11:17)
[2023-09-16] MEDS: LIDOCAINE HCL 2% PF 100 MG/5 ML VIAL INJ (11:17)
[2023-09-16] MEDS: IOHEXOL 240 MG/ML - 10 ML VIAL INJ (11:17)
[2023-09-16 11:18] VITALS: BP 135/90; BP 169/78; PULSE 82; PULSE 90; O2SAT 94
--- NOTE | 2023-09-16 11:23 | P.ON_ITS ---
Date of procedure: 09/16/23 Pre-op diagnosis: Lumbar stenosis with neurogenic claudication Post-op diagnosis: same as pre-op Procedure: Procedure: Left L2-3, L3-4 transforaminal epidural steroid injection Medications: Bupivacaine 0.25% 2cc, lidocaine 2% 1cc, dexamethasone 10mg The patient was seen and examined in the preoperative holding area.? Informed consent was obtained and placed on the chart.? Patient was brought to the medical procedure unit and placed in the prone position where a timeout was completed verifying the correct patient, procedure site, position, and planned special equipment using sterile aseptic technique.? Under direct fluoroscopic visualization a 25-gauge Quincke tipped spinal needle was advanced to the designated neural foramen where contrast dye was injected to show adequate spread.? The needle was inserted at level left L2-3. There was no evidence of vascular or adverse uptake.? Epidural spread was appreciated.? The above- mentioned injectate was then placed in a 1.5 mL aliquot preceded by negative aspiration.? The needle was removed. The needle was inserted and the procedure repeated at level left L3-4.? The surgery site was covered.? Patient was taken to the postprocedural recovery area and monitored for an appropriate length of time before found suitable for discharge in the accompaniment of a responsible adult. Anesthesia: Local Surgeon: Mere Woodard Pathology: none sent Condition: stable Disposition: no change
== END 2023-09-16 11:25 | disposition home or self-care (01) ==
PROVIDERS: PCP Family Medicine; Visit Provider Anesthesiology
DX: M48.062 Spinal stenosis, lumbar region with neurogenic claudication (principal)
CPT/HCPCS: 64483; 64484; J1100; Q9966

== ENCOUNTER 2023-09-30 09:05 | Day surgery (SDC) | payer MEDICARE, SELFPAY ==
--- OUTSIDE RECORDS SUMMARY | 2023-09-30 09:31 | XMS_ITS ---
Patient Summarization (C-CDA 2.1 CCD) Created on: September 30, 2023 NIKKY MARIA : 1945 Sex: Female Author Organization Sample organization Care Team Providers Care Blank Driller Name Role Phone Benji Cantrell MD Unavailable [phone] Tony DE LA CRUZ, Lisandra Kwong Primary Care Provider [phone] Tony DE LA CRUZ, Lisandra Kwong Primary Care Provider Vance DE LA CRUZ, Mere Moon Attending Unavailable Gikimi DE LA CRUZ, Mere Moon Attending Unavailable TONY, LISANDRA Kwong Attending Unavailable APLING, FLORENCE Duenas Attending Unavailable APLING, FLORENCE Duenas Referring Unavailable TONY, LISANDRA Kwong Attending Unavailable APLING, FLORENCE Duenas Attending Unavailable APLING, FLORENCE Duenas Attending Unavailable TONY, LISANDRA F Attending Unavailable LEIAYANETH Attending Unavailable TONY, LISANDRA F Referring Unavailable BOYCE, BELÉN Attending Unavailable TONY, LISANDRA F Referring Unavailable BOYCE, BELÉN Attending Unavailable TONY, LISANDRA F Referring Unavailable BOYCE, BELÉN Attending Unavailable TONY, LISANDRA F Referring Unavailable LEIA, YANETH Corea Attending Unavailable TONY, LISANDRA F Referring Unavailable BOYCE, BELÉN Attending Unavailable TONY, LISANDRA F Referring Unavailable LEIA, YANETH Corea Attending Unavailable TONY, LISANDRA F Referring Unavailable DENISHA LUI Attending Unavailable LEIAYANETH Attending Unavailable TONY, LISANDRA F Referring Unavailable LEIA, YANETH Corea Attending Unavailable TONY, LISANDRA F Referring Unavailable BOYCE, BELÉN Attending Unavailable TONY, LISANDRA F Referring Unavailable BOYCE, BELÉN Attending Unavailable APLING, FLORENCE B Referring Unavailable Allergies Allergy Classification Reported Allergen(s) Allergy Type Date of Onset Reaction(s) Facility (8 sources) diphenhydrAMINE Drug Allergy 8 Unknown [facility] (8 sources) Sulfonamides (Antibiotic) Drug Allergy 2 Other (See Comments) [facility] Encounters Encounter Date Encounter Type Care Provider Facility Start: 09-27-2023 End: 09-27-2023 ambulatory BELÉN BOYCE Not Available Start: 09-24-2023 End: 09-24-2023 ambulatory BELÉN BOYCE Not Available Start: 09-20-2023 End: 09-20-2023 ambulatory YANETH J LEIA Not Available Start: 09-17-2023 End: 09-17-2023 ambulatory YANETH J LEIA Not Available Start: 09-16-2023 End: 09-17-2023 ambulatory Mere Woodard MD Facility:[facility] Start: 09-12-2023 End: 09-12-2023 ambulatory YANETH J LEIA Not Available Start: 09-09-2023 End: 09-09-2023 ambulatory BELÉN BOYCE Not Available Start: 09-06-2023 End: 09-06-2023 ambulatory YANETH J LEIA Not Available Start: 09-04-2023 End: 09-04-2023 ambulatory BELÉN BOYCE Not Available Start: 09-02-2023 End: 09-02-2023 ambulatory BELÉN BOYCE Not Available Start: 08-26-2023 End: 08-26-2023 ambulatory BELÉN BOYCE Not Available Start: 08-23-2023 End: 08-23-2023 ambulatory YANETH J LEIA Not Available Start: 08-19-2023 End: 08-20-2023 ambulatory Mere Woodard MD Facility:[facility] Start: 08-02-2023 Telephone encounter Maya Villalobos RN [facility] Comment on above: Records, transfer to [facility] Start: 07-30-2023 End: 07-30-2023 ambulatory LISANDRA JIMENEZ Not Available Start: 07-17-2023 End: 07-17-2023 ambulatory FLORENCE B APLING Not Available Start: 06-26-2023 End: 06-26-2023 ambulatory FLORENCE B APLING Not Available Start: 06-11-2023 Refill Lisandra Price Work Phone: [facility] Start: 06-10-2023 Camelia flowsheet Lisandra Jimenez MD Work Phone: [facility] Start: 06-10-2023 Benignoboo flowsheet Lisandra Jimenez MD Work Phone: [facility] Start: 06-10-2023 End: 06-10-2023 Patient encounter procedure Lisandra Jimenez MD Work Phone: [facility] Comment on above: Routine general medi vicente examination at a health care facility (Primary Dx); Gastroesophageal reflux disease without esophagitis; Arthritis, lumbar spine; Primary osteoarthritis of left hip; Postoperative anemia due to acute blood loss; Age-related osteoporosis without current pathological fracture ([facility]) Start: 06-10-2023 End: 06-10-2023 Patient encounter status Lisandra Jimenez MD Work Phone: [facility] Work Phone: Start: 06-10-2023 End: 06-10-2023 ambulatory LISANDRA JIMENEZ Not Available Start: 06-06-2023 Refill Loli Yang Work Phone: [facility] Comment on above: Postnasal discharge Start: 06-05-2023 End: 06-05-2023 ambulatory FLORENCE Duenas APLING Not Available Start: 06-05-2023 End: 06-05-2023 ambulatory FLORENCE Duenas APLING Not Available Start: 06-05-2023 End: 06-05-2023 Office outpatient visit 15 minutes Florence Henrique Julienne SOLAR RESOURCE ASSESSOR Work Phone: [facility] Comment on above: S/P total left hip a rthroplasty (Primary Dx); Low back pain without sciatica, unspecified back pain laterality, unspecified chronicity; DDD (degenerative disc disease), lumbar; Scoliosis of thoracolumbar spine, unspecified scoliosis type Start: 04-30-2023 End: 04-30-2023 ambulatory LISANDRA JIMENEZ Not Available Start: 04-02-2023 End: 04-02-2023 ambulatory DENISHA LUI Not Available Medical Equipment Procedure Code Equipment Code Equipment Origin al Text Equipment Identifier Dates Lens Iol Ultrase rt 11.5d - [id number] - [id number] Start: 04-03-2018 Lens Iol Ultrase rt 13.0d - [id number] - [id number] Start: 08-28-2018 Head Fem 32mm 0m m Vrsy Cocr Hip Rpl [id number] - [id number] - [id number], [id number] FDA Start: 12-26-2022 Screw Bn 15mm 6. 5mm St Hip Actb Trlg Strl Rpl [id number] - Sna - [id number] Start: 12-26-2022 Goals Date Patient Goal Desired Activity /State Personal health goal Comment on above: Formatting of this n ote might be different from the original. Evaluation of progress towards goal: Home with support from friend (staying with pt) and [facility] 360 Immunizations Immunization Date Immunization Notes Care Provider Fa [facility] 04-08-2023 RSV, recombinant, protein subunit RSVpreF, adjuvant reconstitu, 120mcg/0.5mL, PF (Arexvy) Lisandra Jimenez MD Work Phone: [facility] 01-28-2023 Influenza, High-dose Seasonal, Quadrivalent, Preservative Free Lloi Rivera SOLAR RESOURCE ASSESSOR Work Phone: [facility] Work Phone: 02-06-2022 Influenza, High-dose Seasonal, Quadrivalent, Preservative Free Loli Rivera SOLAR RESOURCE ASSESSOR Work Phone: [facility] 02-06-2022 Moderna Bivalent Price ster Vaccination Loli Rivera SOLAR RESOURCE ASSESSOR Work Phone: [facility] 02-06-2022 Moderna SARS-CoV-2 50mcg/0.5mL Booster Lolibrady Rivera SOLAR RESOURCE ASSESSOR Work Phone: [facility] 02-06-2022 influenza virus vacc ine, unspecified formulation Maya Villalobos RN [facility] 01-26-2021 Influenza, High-dose Seasonal, Quadrivalent, Preservative Free Loli Rivera SOLAR RESOURCE ASSESSOR Work Phone: [facility] 01-27-2020 Influenza, High-dose Seasonal, Quadrivalent, Preservative Free Loli Rivera SOLAR RESOURCE ASSESSOR Work Phone: [facility] 03-12-2019 zoster vaccine recombinant Loli Rivera SOLAR RESOURCE ASSESSOR Work Phone: [facility] 01-26-2019 zoster vaccine, live Loli W olf SOLAR RESOURCE ASSESSOR Work Phone: [facility] 01-22-2019 influenza, high dose seasonal, preservative-free Loli Rivera SOLAR RESOURCE ASSESSOR Work Phone: [facility] 01-22-2019 Influenza, High-dose Seasonal, Quadrivalent, Preservative Free Loli Rivera SOLAR RESOURCE ASSESSOR Work Phone: [facility] 01-22-2019 zoster vaccine recombinant Loli Rivera SOLAR RESOURCE ASSESSOR Work Phone: [facility] 01-20-2018 influenza, high dose seasonal, preservative-free Loli Rivera SOLAR RESOURCE ASSESSOR Work Phone: [facility] 01-20-2018 influenza, injectabl e, quadrivalent, preservative free Loli Rivera SOLAR RESOURCE ASSESSOR Work Phone: [facility] 01-18-2017 influenza, high dose seasonal, preservative-free Loli Rivera SOLAR RESOURCE ASSESSOR Work Phone: [facility] 01-18-2017 Influenza, High-dose Seasonal, Quadrivalent, Preservative Free Loli Rivera SOLAR RESOURCE ASSESSOR Work Phone: [facility] 01-17-2016 influenza, high dose seasonal, preservative-free Loli Rivera SOLAR RESOURCE ASSESSOR Work Phone: [facility] 01-17-2016 pneumococcal conjuga te vaccine, 13 valent Loli Rivera SOLAR RESOURCE ASSESSOR Work Phone: [facility] 01-12-2015 influenza, high dose seasonal, preservative-free Loli Rivera SOLAR RESOURCE ASSESSOR Work Phone: [facility] 01-11-2014 influenza, high dose seasonal, preservative-free Loli Rivera SOLAR RESOURCE ASSESSOR Work Phone: [facility] 02-10-2013 tetanus and diphther ia toxoids, adsorbed, preservative free, for adult use (5 Lf of tetanus toxoid and 2 Lf of diphtheria toxoid) Loli Rivera SOLAR RESOURCE ASSESSOR Work Phone: [facility] 02-10-2013 tetanus toxoid, redu jessica diphtheria toxoid, and acellular pertussis vaccine, adsorbed Loli Rivera SOLAR RESOURCE ASSESSOR Work Phone: [facility] 02-06-2013 seasonal influenza, intradermal, preservative free Loli Rivera SOLAR RESOURCE ASSESSOR Work Phone: [facility] 12-23-2012 zoster vaccine, live Loli reysef SOLAR RESOURCE ASSESSOR Work Phone: [facility] 12-12-2012 pneumococcal polysaccharide vaccine, 23 valent Loli Rivera SOLAR RESOURCE ASSESSOR Work Phone: [facility] 02-06-2012 influenza, seasonal, injectable, preservative free Lloi Rivera SOLAR RESOURCE ASSESSOR Work Phone: [facility] 04-17-2004 influenza, seasonal, injectable Loli Rivera SOLAR RESOURCE ASSESSOR Work Phone: [facility] 04-27-2003 influenza, seasonal, injectable Loli Rivera SOLAR RESOURCE ASSESSOR Work Phone: [facility] 04-27-2002 influenza, seasonal, injectable Loli Rivera SOLAR RESOURCE ASSESSOR Work Phone: [facility] 04-01-2001 influenza, seasonal, injectable Loli Rivera SOLAR RESOURCE ASSESSOR Work Phone: [facility] 03-08-1999 pneumococcal polysaccharide vaccine, 23 valent Loli Rivera SOLAR RESOURCE ASSESSOR Work Phone: [facility] Medications Current Medications Medication Drug Class(es) Dates [...] split.. 30 capsule 11 04/30/2023 04/29/2024 Active Payers Date Payer Category Payer Private Health Insurance 2021 Medicare [id number] 2021 Medicare [id number] 1945 Unknown [id number] 2.16. [id number] 1945 Unknown [id number] 2.16. 840.1.855703.3.579.2.196 1945 Unknown [id number] 2.16.84 0.1.763580.3.579.2.1258 1945 Unknown [id number] 2.16.84 0.1.287484.3.579.2.125 1945 Unknown [id number] 2.16.84 0.1.993920.3.579.2.1258 1945 Unknown [id number] 2.16.84 0.1.224327.3.579.2.1259 1945 Unknown [id number] 2.16.84 0.1.210708.3.579.2.125 1945 Unknown [id number] 2.16.84 0.1.833241.3.579.2.125 1945 Unknown [id number] 2.16.84 0.1.908615.3.579.2.125 1945 Unknown [id number] 2.16.84 0.1.145954.3.579.2.125 1945 Unknown [id number] 2.16.84 0.1.558663.3.579.2.125 1945 Unknown [id number] 2.16.84 0.1.562766.3.579.2.1259 1945 Unknown [id number] 2.16.84 0.1.505149.3.579.2.1259 1945 Unknown [id number] 2.16.84 0.1.538624.3.579.2.9 1945 Unknown [id number] 2.16.84 0.1.678245.3.579.2.1259 1945 Unknown [id number] 2.16.84 0.1.191540.3.579.2.1259 1945 Unknown [id number] 2.16.84 0.1.524305.3.579.2.9 1945 Unknown [id number] 2.16.84 0.1.533216.3.579.2.9 1945 Unknown [id number] 2.16.84 0.1.226746.3.579.2.9 1945 Unknown [id number] 2.16.840 .1.417248.3.579.2.9 1945 Unknown [id number] 2.16.840 .1.643321.3.579.2.1259 Plan of Treatment Date Care Activity Detail Author Start: 06-10-2024 Medicare Annual Wellness (AWV) Medicare Annual Wellness (AWV) [facility] Start: 01-02-2024 Adult BMI Screening Adult BMI Screen ing [facility] Start: 12-29-2023 Influenza vaccination Influenza Vacc ine [facility] Start: 12-29-2023 Tobacco Screening Tobacco Screening [facility] Start: 12-09-2023 End: 12-09-2023 Patient encounter procedure 12/09/2023 9:40 AM EDT Office Visit [facility] [address] [place] [id number] Lisandra Jimenez MD [address] [place] [address] [facility] Start: 08-01-2023 Medicare Annual Wellness (AWV) Medicare Annual Wellness (AWV) [facility] Start: 07-30-2023 End: 07-30-2023 Patient encounter procedure 07/30/2023 9:00 AM EDT Office Visit [facility] [address] [place] [phone] Lisandra Jimenez MD [address] [place] [address] [facility] Start: 07-01-2023 End: 07-01-2023 Patient encounter procedure 07/01/2023 9:00 AM EST Office Visit [facility] [address] [place] [address] Florence Robins SOLAR RESOURCE ASSESSOR [address] [place] [address] [facility] Start: 06-26-2023 End: 06-26-2023 Patient encounter procedure 06/26/2023 10:00 AM EST Office Visit [facility] [address] [place] [address] Florence Robins SOLAR RESOURCE ASSESSOR [address] [place] [address] [facility] Start: 06-10-2023 End: 06-10-2023 Patient encounter procedure [facility] Comment on above: Arrived Start: 02-10-2023 DTaP,Tdap and Td Vaccines (3 - Td or Tdap) DTaP,Tdap and Td Vaccines (3 - T[facility]ap[facility] Start: 12-28-2022 COVID-19 Vaccine ( season) COVID-19 Vaccine ( season) [facility] Start: 2010 Fall [facility]ening [facility] Start: 1957 [facility] Start: 1945 Medicare Annual Wellness Visit Medicare Annual Wellness Visit [facility] Problems Active Problems Problem Classification Problem Date [...] not elsewhere classified] Onset: 04-05-2022 11-29-2022 Episodic Procedures Date Procedure Procedure Detail Performing Clinician Start: 06-05-2023 Radex spine lumbosac ral minimum 4 views Florence Robins SOLAR RESOURCE ASSESSOR Work Phone: Results Test Name Value Interpretation Reference Range Facil ity XR Lumbar spine 4 [facility] Result: June 05, 2023 x-rays AP lateral and lateral flexion-extension views of the lumbar spine demonstrate severe scoliosis apex to the right at the thoracolumbar junction of nearly 90 degrees curvature in the coronal plane. There are no definitive fractures identified. Impression: Severe scoliosis Corwin Lui D.O. [facility] easy2map XR Lumbar spine 4 ViewsOrder ed By: Denisha Lui on 06-06-2023 [facility] Work Phone: XR Lumbar spine 4 Viewson Radiology Study observation (narrative) [facility] easy2map SCREENING MAMMOGRAM W/JORDAN, BILATERAL*on 04-10-2021 SCREENING MAMMOGRAM [...] VERY IMPORTANT TO YOUR HEALTH. THE CURRENT [employer] GUIDELINES RECOMMENDS ANNUAL MAMMOGRAPHY BEGINNING AT AGE 40 THIS FACILITY USES A REMINDER SYSTEM TO ENSURE ALL PATIENTS RECEIVE REMINDER NOTIFICATIONS AT THE APPROPRIATE TIME BASED ON THE RECOMMENDATIONS OF THIS EXAM. 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 Social History Date Type Detail Facility Start: 06-05-2023 End: 06-10-2023 Alcohol intake Lifetime non-drinker (finding) [facility] Start: 12-28-2022 Alcohol intake Current non-drinker of alcohol (finding) [facility] Start: 06-09-2020 End: 12-10-2022 History of Social function [facility] Start: 06-09-2020 End: 12-10-2022 Humiliation, Afraid, Rape, and Kick questionnaire [HARK] [facility] Start: 05-24-2022 End: 10-10-2022 Tobacco smoking status NHIS Never smoked tobacco [facility] Start: 05-24-2022 End: 10-10-2022 Tobacco use and exposure Smokeless tobacco non-user [facility] Start: 07-11-2022 Gender identity Identifies as female gender (finding) [facility] Start: 1945 Sex Assigned At Not on file [facility] Within the last year , have you been afraid of your partner or ex-partner? No [facility] Attends [employer] Not on file [facility] Do you belong to any clubs or organizations such as presybeterian groups, unions, fraternal or athletic groups, or school groups? Yes [facility] Are you now , , , , never or living with a partner? Never [facility] How often to you hav e a drink containing alcohol? Never [facility] (I/We) worried wheth er (my/our) food would run out before (I/we) got money to buy more. Never true [facility] Vital Signs Date Time Vital Sign Value Performing Clinician Farhad rodriguez 06-10-2023 10:05-0500 Body height 154.9 cm Lisandra Jimenez MD Work Phone: [facility] 06-10-2023 10:05-0500 Body mass index (BMI) [Ratio] 20.6 kg/m2 Lisandra Jimenez MD Work Phone: [facility] 06-10-2023 10:05-0500 Body weight 49.44 kg Lisandra Jimenez MD Work Phone: [facility] 06-10-2023 10:05-0500 Diastolic blood pressure 68 mm[Hg] Lisandra Jimenez MD Work Phone: [facility] 06-10-2023 10:05-0500 Heart rate 76 /min Lisandra Jimenez MD Work Phone: [facility] 06-10-2023 10:05-0500 Respiratory rate 16 /min Lisandra Jimenez MD Work Phone: [facility] 06-10-2023 10:05-0500 Systolic blood pressure 130 mm[Hg] Lisandra Jimenez MD Work Phone: [facility] Clinical Notes 06-05-2023 to 08-02-2023 Telephone Encounter - Maya Villalobos RN - 08/02/2023 2:27 PM EDTTelephone Encounter - Maya Villalobos RN - 08/02/2023 2:27 PM EDTTelephone Encounter - Davina Ayers - 06/11/2023 4:37 PM EST Note Date & Type Note Facility 08-02-2023 Miscellaneous Notes Received a phone call from [facility] for patient records to be transferred. documented in this encounter [facility] 08-02-2023 Telephone encounter Note Received a phone call from [facility] for patient records to be transferred. [facility] 06-11-2023 Telephone encounter Note PT Calling to check status of this request, unsure as how to explain the denial of the refill. [facility] 06-11-2023 Miscellaneous Notes PT Calling to check status of this request, unsure as how to explain the denial of the refill. Medication refused due to failing protocol. Requested Prescriptions Pending Prescriptions Disp Refills methylPREDNISolone (Medrol Dospak) 4 MG tablets 21 tablet Sig: Follow schedule on package instructions There is no refill protocol information for this order documented in this encounter [facility] 06-11-2023 Telephone encounter Note Medication refused due to failing protocol. Requested Prescriptions Pending Prescriptions Disp Refills methylPREDNISolone (Medrol Dospak) 4 MG tablets 21 tablet Sig: Follow schedule on package instructions There is no refill protocol information for this order [facility] 06-10-2023 History of Present illness Narrative Nikky [...] at all Patient Health Questionnaire-9 Score: 0 Rivera Fall Risk History of Falling, Immediate or [...] Recheck in 6months documented in this encounter [facility] 06-05-2023 History of Present illness Narrative Subjective [...] fractures identified. Impression: Severe scoliosis Corwin Lui D.OCayla Assessment/Plan Encounter Diagnoses: ICD-10-CM 1. 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 01/17/2023 11:54 AM Latest Code Status on File Code Status Date Activated Date Inactivated Comments Full Code 12/28/2022 6:14 PM 01/01/2023 3:49 PM Code Status History Code Status Date Activated Date Inactivated Comments Full Code 12/26/2022 10:18 AM 12/27/2022 7:36 PM Additional Source Comments INFORMATION SOURCE (unrecogn ized section and content) DATE CREATED AUTHOR 04/10/2021 [facility] dical Specialist DATE CREATED AUTHOR AUTHOR'S ORGANIZ ATION 09/22/2023 [facility] DATE CREATED AUTHOR AUTHOR'S ORGANIZ ATION 09/28/2023 [facility] dical Specialists EPIC Reason for Visit (unrecogniz ed section and content) Reason Comments Med Refill Reason Comments Medicare Annual Wellness Visit Subsequen t Reason Onset Date Comments Records, transfer to [facility] 08/02/2023 Care Teams (unrecognized sec tion and content) Blank Driller Relationship Specialty Start Date End Date Benji Cantrell MD [address] [place] [address] PCP - [employer] 04/29/22 Lisandra Jimenez MD [address] [facility] [place] [address] PCP - General Family Medicine 09/10/22 Blank Driller Relationship Specialty Start Date End Date Benji Cantrell MD [address] [facility] [address] [place] [address] PCP - [employer] 04/29/22 Lisandra Jimenez MD [address] [facility] [place] [address] PCP - General Family Medicine 09/10/22 Blank Driller Relationship Specialty Start Date End Date Benji Cantrell MD [address] [facility] [address] [place] [address] PCP - [employer] 04/29/22 Lisandra Jimenez MD [address] [facility] [place] [address] PCP - General Family Medicine 09/10/22 Blank Driller Relationship Specialty Start Date End Date Benji Cantrell MD [address] [facility] [address] [place] [address] PCP - [employer] 04/29/22 Lisandra Jimenez MD [address] [facility] [place] [address] PCP - General Family Medicine 09/10/22 Blank Driller Relationship Specialty Start Date End Date Benji Cantrell MD [address] [place] [address] PCP - [employer] 04/29/22 Lisandra Jimenez MD [address] [facility] [place] [place] [address] PCP - General Family Medicine 09/10/22 Blank Driller Relationship Specialty Start Date End Date Lisandra Jimenez MD [address] [facility] [place], [place] [id number] PCP - General Family Medicine 11/12/16 FOR [...] BE BASED ON THE PRIMARY CLINICAL RECORDS. [employer] provides no warranty or guarantee of the accuracy or completeness of information in this document.
[2023-09-30 10:29] VITALS: BP 155/74; PULSE 80; TEMP 36.4; O2SAT 96
[2023-09-30] MEDS: LIDOCAINE HCL 2% PF 100 MG/5 ML VIAL INJ (10:57)
[2023-09-30] MEDS: BUPIVACAINE HCL 0.25% PF 25 MG/10 ML VIAL INJ (10:57)
[2023-09-30] MEDS: IOHEXOL 240 MG/ML - 10 ML VIAL INJ (10:57)
[2023-09-30] MEDS: TRIAMCINOLONE ACETONIDE 40 MG/ML VIAL INJ (10:57)
[2023-09-30 10:59] VITALS: BP 168/72; BP 172/76; PULSE 87; PULSE 90; O2SAT 94; O2SAT 95
--- NOTE | 2023-09-30 10:59 | P.ON_ITS ---
Date of procedure: 09/30/23 Pre-op diagnosis: Left sacroiliitis Post-op diagnosis: same as pre-op Procedure: Procedure: Left sacroiliac joint injection Medications: Bupivacaine 0.25% 3cc, kenalog 40mg After informed consent was obtained, the patient was brought to the medical pro cedure unit and placed in the prone position, when a timeout was completed verifying correct patient, procedure, site, positioning, implant, and/or special equipment.? The skin overlying the area was prepped and draped in standard sterile fashion using alcohol.? A 25-gauge needle was inserted towards the left sacroiliac joint under direct fluoroscopic imaging.? Needle tip was advanced until the joint was encountered.? We instilled a total of 2 mL of solution.? Postoperatively needles were removed.? The patient tolerated the procedure well without complication.? The patient reported reduction in pain symptoms postoperatively. Anesthesia: Local Surgeon: Mere Woodard Pathology: none sent Condition: stable Disposition: no change
== END 2023-09-30 11:04 | disposition home or self-care (01) ==
LOC: SURGOUT 09:06
PROVIDERS: PCP Family Medicine; Visit Provider Anesthesiology
DX: M46.1 Sacroiliitis, not elsewhere classified (principal)
CPT/HCPCS: 27096; Q9966

== ENCOUNTER 2023-10-10 08:50 | Outpatient (OUT) | payer MEDICARE, SELFPAY ==
--- OUTSIDE RECORDS SUMMARY | 2023-10-10 09:10 | XMS_ITS | CCD ---
Author Organization [facility] [employer] Care Team Providers Care Twisting Frame Operator Name Role Phone Benji Cantrell MD Unavailable [phone] Lisandra Jimenez MD Primary Care Provider [phone] Lisandra Jimenez MD Primary Care Provider LISANDRA JIMENEZ Attending Unavailable APLING, FLORENCE Duenas Attending Unavailable APLING, FLORENCE Duenas Referring Unavailable HUI, LISANDRA Kwong Attending Unavailable APLING, FLORENCE Duenas Attending Unavailable APLING, FLORENCE Duenas Attending Unavailable HUI, LISANDRA Varghese Attending Unavailable LEIAYANETH Attending Unavailable HUI, LISANDRA F Referring Unavailable BOYCE, BELÉN Attending Unavailable HUI, LISANDRA F Referring Unavailable BOYCE, BELÉN Attending Unavailable HUI, LISANDRA F Referring Unavailable BOYCE, BELÉN Attending Unavailable HUI, LISANDRA F Referring Unavailable LEIA, YANETH Corea Attending Unavailable HUI, LISANDRA F Referring Unavailable BOYCE, BELÉN Attending Unavailable HUI, LISANDRA F Referring Unavailable LEIA, YANETH Corea Attending Unavailable HUI, LISANDRA F Referring Unavailable CLINTDENISHA Attending Unavailable LEIA, YANETH Corea Attending Unavailable HUI, LISANDRA F Referring Unavailable LEIA, YANETH Corea Attending Unavailable HUI, LISANDRA F Referring Unavailable BOYCE, BELÉN Attending Unavailable HUI, LISANDRA F Referring Unavailable BOYCE, BELÉN Attending Unavailable APLING, FLORENCE Duenas Referring Unavailable BOYCE, BELÉN Attending Unavailable HUI, LISANDRA F Referring Unavailable BOYCE, BELÉN Attending Unavailable HUI, LISANDRA F Referring Unavailable Gieditis , Mere Moon Attending Unavailable Gikevinitis , Mere Moon Attending Unavailable Gikevinitis , Mere Moon Attending Unavailable Allergies Allergy Classification Reported Allergen(s) Allergy Type Date of Onset Reaction(s) Facility (8 sources) diphenhydrAMINE Drug Allergy 8 Unknown [facility] (8 sources) Sulfonamides (Antibiotic) Drug Allergy 2 Other (See Comments) [facility] Medications Current Medications Medication Drug Class(es) [...] identified. Impression: Severe scoliosis Corwin Lui D.O. [facility] XR Lumbar spine 4 ViewsOrder ed By: Denisha Lui on 06-06-2023 [facility] Daric[employer] Work Phone: XR Lumbar spine 4 Viewson Radiology Study observation (narrative) [facility] SCREENING MAMMOGRAM W/JORDAN, BILATERAL*on 04-10-2021 SCREENING MAMMOGRAM [...] VERY IMPORTANT TO YOUR HEALTH. THE CURRENT CITIZEN OF [place] [employer] GUIDELINES RECOMMENDS ANNUAL MAMMOGRAPHY BEGINNING AT AGE 40 THIS FACILITY USES A REMINDER SYSTEM TO ENSURE ALL PATIENTS RECEIVE REMINDER NOTIFICATIONS AT THE APPROPRIATE TIME BASED ON THE RECOMMENDATIONS OF THIS EXAM. Report reported and signed by Filiberto Love on 04/10/2021 1211 Normal [facility] Nozzleman Vital Signs Date Time Vital Sign Value Performing Clinician Faci lity 06-10-2023 10:05-0500 Body height 154.9 cm Lisandra Jimenez MD Work Phone: [facility] 06-10-2023 10:05-0500 Body mass index (BMI) [Ratio] 20.6 kg/m2 Lisandra Jimenez MD Work Phone: [facility] 06-10-2023 10:05-0500 Body weight 49.44 kg Lisandra Jimenez MD Work Phone: [facility] 06-10-2023 10:05-0500 Diastolic blood pressure 68 mm[Hg] Lisandra Jimenez MD Work Phone: [facility] 06-10-2023 10:05-0500 Heart rate 76 /min Lisandra Jimenez MD Work Phone: [facility] 06-10-2023 10:05-0500 Respiratory rate 16 /min Lisandra Jimenez MD Work Phone: [facility] 06-10-2023 10:05-0500 Systolic blood pressure 130 mm[Hg] Lisandra Jimenez MD Work Phone: [facility] Healthcare Encounters Encounter Date Encounter Type Care Provider Facility Start: 10-08-2023 End: 10-08-2023 ambulatory BELÉN BOYCE Not Available Start: 10-03-2023 End: 10-03-2023 ambulatory BELÉN BOYCE Not Available Start: 09-30-2023 End: 09-30-2023 ambulatory Mere Woodard MD Facility: [facility] Start: 09-27-2023 End: 09-27-2023 ambulatory BELÉN BOYCE Not Available Start: 09-24-2023 End: 09-24-2023 ambulatory BELÉN BOYCE Not Available Start: 09-20-2023 End: 09-20-2023 ambulatory YANETH J LEIA Not Available Start: 09-17-2023 End: 09-17-2023 ambulatory YANETH J LEIA Not Available Start: 09-16-2023 End: 09-16-2023 ambulatory Mere Woodard MD Facility: [facility] Start: 09-12-2023 End: 09-12-2023 ambulatory YANETH J [...] J LEIA Not Available Start: 08-19-2023 End: 08-19-2023 ambulatory Mere Woodard MD Facility:[facility] Start: 08-02-2023 Telephone encounter Maya Villalobos RN [facility] Comment on above: Records, transfer to [facility] Start: 07-30-2023 End: 07-30-2023 ambulatory LISANDRA [...] [facility] Start: 06-10-2023 End: 06-10-2023 Patient encounter procedure Lisandra Jimenez MD Work Phone: [facility] Comment on above: Routine general medi vicente examination at a health care facility (Primary Dx); Gastroesophageal reflux disease without esophagitis; Arthritis, lumbar spine; Primary osteoarthritis of left hip; Postoperative anemia due to acute blood loss; Age-related osteoporosis without current pathological fracture ([facility]) Start: 06-10-2023 End: 06-10-2023 Patient encounter status Lisandra Jimenez MD Work Phone: [facility] Work Phone: Start: 06-10-2023 End: 06-10-2023 ambulatory LISANDRA JIMENEZ Not Available Start: 06-06-2023 Refill Loli Yang Work Phone: [facility] Comment on above: Postnasal discharge Start: 06-05-2023 End: 06-05-2023 ambulatory FLORENCE B APLING Not Available Start: 06-05-2023 End: 06-05-2023 ambulatory FLORENCE B APLING Not Available Start: 06-05-2023 End: 06-05-2023 Office outpatient visit 15 minutes Florence Henrique Apling BOW MAKER Work Phone: [facility] Comment on above: S/P total left [...] lumbosac ral minimum 4 views Florence Robins BOW MAKER Work Phone: Plan of Treatment Date Care Activity Detail Author Start: 06-10-2024 Medicare Annual Wellness (AWV) Medicare Annual Wellness (AWV) [facility] Start: 01-02-2024 Adult BMI Screening Adult BMI Screen ing [facility] Start: 12-29-2023 Influenza vaccination Influenza Vacc ine [facility] Start: 12-29-2023 Tobacco Screening Tobacco Screening [facility] Start: 12-09-2023 End: 12-09-2023 Patient encounter procedure 12/09/2023 9:40 AM EDT Office Visit [facility] [address] [facility] [place] [id number] Lisandra Jimenez MD [address] [facility] [place] [address] [facility] Start: 08-01-2023 Medicare Annual Wellness (AWV) Medicare Annual Wellness (AWV) [facility] Start: 07-30-2023 End: 07-30-2023 Patient encounter procedure 07/30/2023 9:00 AM EDT Office Visit [facility] [address] [facility] [place] [id number] Lisandra Jimenez MD [address] [facility] [place], [place] [id number] [facility] Start: 07-01-2023 End: 07-01-2023 Patient encounter procedure 07/01/2023 9:00 AM EST [facility] Visit [facility] [address] [place] [address] Florence Robins, BOW MAKER [address] [place] [address] [facility] Start: 06-26-2023 End: 06-26-2023 Patient encounter procedure 06/26/2023 10:00 AM EST Office Visit [facility] [address] [place] [address] Florence Robins, BOW MAKER [address] [place] [address] [facility] Start: 06-10-2023 End: 06-10-2023 Patient encounter procedure [facility] Comment on above: Arrived Start: 02-10-2023 DTaP,Tdap and Td Vaccines (3 - Td or Tdap) DTaP,Tdap and Td Vaccines (3 - Td or Tdap) [facility] Start: 12-28-2022 COVID-19 Vaccine ( season) COVID-19 Vaccine ( season) [facility] Start: 2010 Fall Risk Screening Fall Risk Screen [facility] Start: 1957 Depression Screening Depression Scre [facility] Start: 1945 Medicare Annual Wellness Visit Medicare Annual Wellness Visit [facility] Immunizations Immunization Date Immunization Notes Care Provider Fa [facility] 04-08-2023 RSV, recombinant, protein subunit RSVpreF, adjuvant reconstitu, 120mcg/0.5mL, PF (Arexvy) Lisandra Jimenez MD Work Phone: [facility] 01-28-2023 Influenza, High-dose Seasonal, Quadrivalent, Preservative Free Loli Rivera BOW MAKER Work Phone: [facility] Work Phone: 02-06-2022 Influenza, High-dose Seasonal, Quadrivalent, Preservative Free Loli Rivera BOW MAKER Work Phone: [facility] 02-06-2022 Moderna Bivalent Price ster Vaccination Loli Rivera BOW MAKER Work Phone: [facility] 02-06-2022 Moderna SARS-CoV-2 50mcg/0.5mL Booster Loli Rivera BOW MAKER Work Phone: [facility] 02-06-2022 influenza virus vacc ine, unspecified formulation Maya Villalobos RN [facility] 01-26-2021 Influenza, High-dose Seasonal, Quadrivalent, Preservative Free Loli Rivera BOW MAKER Work Phone: [facility] 01-27-2020 Influenza, High-dose Seasonal, Quadrivalent, Preservative Free Loli Rivera BOW MAKER Work Phone: [facility] 03-12-2019 zoster vaccine recombinant Loli Rivera BOW MAKER Work Phone: [facility] 01-26-2019 zoster vaccine, live Loli W olf BOW MAKER Work Phone: [facility] 01-22-2019 influenza, high dose seasonal, preservative-free Loli Rivera BOW MAKER Work Phone: [facility] 01-22-2019 Influenza, High-dose Seasonal, Quadrivalent, Preservative Free Loli Rivera BOW MAKER Work Phone: [facility] 01-22-2019 zoster vaccine recombinant Loli Rivera BOW MAKER Work Phone: [facility] 01-20-2018 influenza, high dose seasonal, preservative-free Loli Rivera BOW MAKER Work Phone: [facility] 01-20-2018 influenza, injectabl e, quadrivalent, preservative free Loli Rivera BOW MAKER Work Phone: [facility] 01-18-2017 influenza, high dose seasonal, preservative-free Loli Rivera BOW MAKER Work Phone: [facility] 01-18-2017 Influenza, High-dose Seasonal, Quadrivalent, Preservative Free Loli Rivera BOW MAKER Work Phone: [facility] 01-17-2016 influenza, high dose seasonal, preservative-free Loli Rivera BOW MAKER Work Phone: [facility] 01-17-2016 pneumococcal conjuga te vaccine, 13 valent Loli Rivera BOW MAKER Work Phone: [facility] 01-12-2015 influenza, high dose seasonal, preservative-free Loli Rivera BOW MAKER Work Phone: [facility] 01-11-2014 influenza, high dose seasonal, preservative-free Loli Rivera BOW MAKER Work Phone: [facility] 02-10-2013 tetanus and diphther ia toxoids, adsorbed, preservative free, for adult use (5 Lf of tetanus toxoid and 2 Lf of diphtheria toxoid) Loil Rivera BOW MAKER Work Phone: [facility] 02-10-2013 tetanus toxoid, redu jessica diphtheria toxoid, and acellular pertussis vaccine, adsorbed Loli Rivera BOW MAKER Work Phone: [facility] 02-06-2013 seasonal influenza, intradermal, preservative free Loli Rivera BOW MAKER Work Phone: [facility] 12-23-2012 zoster vaccine, live Loli W olf BOW MAKER Work Phone: [facility] 12-12-2012 pneumococcal polysaccharide vaccine, 23 valent Loli Rivera BOW MAKER Work Phone: [facility] 02-06-2012 influenza, seasonal, injectable, preservative free Loli Rivera BOW MAKER Work Phone: [facility] 04-17-2004 influenza, seasonal, injectable Loli Rivera BOW MAKER Work Phone: [facility] 04-27-2003 influenza, seasonal, injectable Loli Rivera BOW MAKER Work Phone: [facility] 04-27-2002 influenza, seasonal, injectable Loli Rivera BOW MAKER Work Phone: [facility] 04-01-2001 influenza, seasonal, injectable Loli Rivera BOW MAKER Work Phone: [facility] 03-08-1999 pneumococcal polysaccharide vaccine, 23 valent Loli Rivera BOW MAKER Work Phone: [facility] Payers Date Payer Category Payer Private Health Insurance 2021 Medicare [id number] 2021 Medicare [id number] 1945 Unknown [id number] 2.16.84 0.1.810169.3.579.2.1259 1945 Unknown [id number] 2.16.84 0.1.461859.3.579.2.1259 1945 Unknown [id number] 2.16.84 0.1.979083.3.579.2.1259 1945 Unknown [id number] 2.16.84 0.1.472845.3.579.2.1259 1945 Unknown [id number] 2.16.84 0.1.802451.3.579.2.1259 1945 Unknown [id number] 2.16.84 0.1.193298.3.579.2.1259 1945 Unknown [id number] 2.16.84 0.1.074912.3.579.2.1259 1945 Unknown [id number] 2.16.84 0.1.065582.3.579.2.1259 1945 Unknown [id number] 2.16.84 0.1.842318.3.579.2.1259 1945 Unknown [id number] 2.16.84 0.1.941217.3.579.2.1259 1945 Unknown [id number] 2.16.84 0.1.846365.3.579.2.1259 1945 Unknown [id number] 2.16.84 0.1.203784.3.579.2.1259 1945 Unknown [id number] 2.16.84 0.1.497584.3.579.2.1259 1945 Unknown [id number] 2.16.84 0.1.578274.3.579.2.1259 1945 Unknown [id number] 2.16.84 0.1.598460.3.579.2.1259 1945 Unknown [id number] 2.16.84 0.1.716507.3.579.2.9 1945 Unknown [id number] 2.16.84 0.1.524567.3.579.2.1259 1945 Unknown [id number] 2.16.84 0.1.582357.3.579.2.9 1945 Unknown [id number] 2.16.84 0.1.904925.3.579.2.1259 1945 Unknown [id number] 2.16.840 .1.994437.3.579.2.9 1945 Unknown [id number] 2.16.840 .1.637215.3.579.2.9 1945 Unknown [id number] 2.16. 840.1.920446.3.579.2.196 1945 Unknown [id number] 2.16. 840.1.299599.3.579.2.196 1945 Unknown [id number] 2.16. 840.1.321091.3.579.2.196 Social History Date Type Detail Facility Start: 05-24-2022 End: 10-10-2022 Tobacco smoking status [facility] Never smoked tobacco [facility] Start: 05-24-2022 [...] partner or ex-partner? No [facility] Attends [employer] Not on file [facility] Do you belong to any clubs or organizations such as orthodox groups, unions, fraternal or athletic groups, or [...] Assigned At Not on file [facility] Start: 07-11-2022 Gender identity Identifies as female gender (finding) [facility] Start: 12-28-2022 Alcohol intake Current non-drinker of alcohol (finding) [facility] Medical Equipment Procedure Code Equipment Code Equipment Origin al Text Equipment Identifier Dates Lens Iol Ultrase rt 11.5d - [id number] - [id number] Start: 04-03-2018 Lens Iol Ultrase rt 13.0d - [id number] - [id number] Start: 08-28-2018 Head Fem 32mm 0m m Vrsy Cocr Hip Rpl [id number] - [id number] - [id number], [id number] FDA Start: 12-26-2022 Screw Bn 15mm 6. 5mm [address] Hip Actb Trlg Strl Rpl [id number] - [id number] - [id number] Start: 12-26-2022 Goals Date Patient Goal [...] Notes Received a phone call from [facility] for patient records to be transferred. documented in this encounter [facility] 08-02-2023 Telephone encounter Note Received a phone call from [facility] for patient records to be transferred. [facility] 06-11-2023 Telephone encounter Note PT Calling to check status of this request, unsure as how to explain the denial of the refill. [facility] 06-11-2023 Miscellaneous Notes PT Calling to check status of this request, unsure as how to explain the denial of the refill. Medication refused due to failing protocol. Requested Prescriptions Pending Prescriptions Disp Refills methylPREDNISolone (Medrol Dospak) 4 MG tablets 21 tablet Sig: Follow schedule on package instructions There is no refill protocol information for this order documented in this encounter [facility] 06-11-2023 Telephone encounter Note Medication refused due to failing protocol. Requested Prescriptions Pending Prescriptions Disp Refills methylPREDNISolone (Medrol Dospak) 4 MG tablets 21 tablet Sig: Follow schedule on package instructions There is no refill protocol information for this order [facility] 06-10-2023 History of Present illness Narrative Nikky [...] Recheck in 6months documented in this encounter [facility] 06-05-2023 History of Present illness Narrative Subjective [...] fractures identified. Impression: Severe scoliosis Corwin Lui DSudhir Assessment/Plan Encounter Diagnoses: ICD-10-CM 1. 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 01/17/2023 11:54 AM Latest Code Status on File Code Status Date Activated Date Inactivated Comments Full Code 12/28/2022 6:14 PM 01/01/2023 3:49 PM Code Status History Code Status Date Activated Date Inactivated Comments Full Code 12/26/2022 10:18 AM 12/27/2022 7:36 PM Additional Source Comments INFORMATION SOURCE (unrecogn ized section and content) DATE CREATED AUTHOR 04/10/2021 [facility] dical Specialist DATE CREATED AUTHOR AUTHOR'S ORGANIZ ATION 10/08/2023 [facility] dical Specialists EPIC DATE CREATED AUTHOR AUTHOR'S ORGANIZ ATION 10/10/2023 [facility] Reason for Visit (unrecogniz ed section and content) Reason Comments Med Refill Reason Comments Medicare Annual Wellness Visit Subsequen t Reason Onset Date Comments Records, transfer to [facility] 08/02/2023 Care Teams (unrecognized sec tion and content) Twisting Frame Operator Relationship Specialty Start Date End Date Benji Cantrell MD [address] [facility] [address] [place] [address] PCP - [employer] 04/29/22 Lisandra Jimenez MD [address] [place] [address] PCP - General Family Medicine 09/10/22 Twisting Frame Operator Relationship Specialty Start Date End Date Benji Cantrell MD [address] [facility] [address] [place] [address] PCP - [employer] 04/29/22 Lisandra Jimenez MD [address] [place] [address] PCP - General Family Medicine 09/10/22 Twisting Frame Operator Relationship Specialty Start Date End Date Benji Cantrell MD [address] [address] [place] [address] PCP - [employer] 04/29/22 Lisandra Jimenez MD [address] [facility] [place] [address] PCP - General Family Medicine 09/10/22 Twisting Frame Operator Relationship Specialty Start Date End Date Benji Cantrell MD [address] [facility] [address] [place] [address] PCP - [employer] 04/29/22 Lisandra Jimenez MD [address] [facility] [place] [address] PCP - General Family Medicine 09/10/22 Twisting Frame Operator Relationship Specialty Start Date End Date Benji Cantrell MD [address] [address] [place] [address] PCP - Aet 04/29/22 Lisandra Jimenez MD [address] [facility] [place] [address] PCP - General Family Medicine 09/10/22 Twisting Frame Operator Relationship Specialty Start Date End Date Lisandra Jimenez MD [address] [facility] [place] [address] PCP - General Family Medicine 11/12/16 FOR [...] BE BASED ON THE PRIMARY CLINICAL RECORDS. [facility]. provides no warranty or guarantee of the accuracy or completeness of information in this document.
--- NOTE | 2023-10-10 09:18 | P.CN_ITS ---
Consult Note: HPI Data of Consult Patient: known to practice within the last 3 years Consult date: 08/19/23 Requesting Physician: Teresa Lynn NP Primary Care Provider: YOLA AMES Consult Narrative Reason for consult: low back, left hip pain Narrative: [id number] who presents for evaluation. worsening low back and left hip pain. imaging shows severe scoliosis with degenerative changes. had left hip replaced, though states this pain feels different. primarily utilizes tylenol, which does not help. has tried >6 weeks of provider directed home exercises, with minimal benefit. denies adverse med side effects. recent lumbar MRI consistent with degenerative changes and lumbar stenosis. has only taken celebrex once or twice without side effects, unsure of improvement or not. Patient reporting >50% improvement in pain and functional ability ongoing from recent left SIJ and Left L2-3 3-4 TFESI. cc:: CC: Teresa Lynn NP Review of Systems ROS Status of ROS 10 or more systems reviewed and unremark able except as noted in history and below Musculoskeletal Reports: back pain and joint pain PFSH PFSH Medical History (Updated 10/10/23 @ 09:33 by Teresa Lynn NP) Low back pain ?M54.50 - Low back pain, unspecified (ICD-10) Surgical History History of hip replacement ?Z96.649 - Presence of unspecified artificial hip joint (ICD-10) Meds Home Medications and Allergies Home Medications ?Medication ?Instructions ?Recorded ?Confirmed ?Type acetaminophen 650 mg 650 mg PO Q12H PRN pain 08/19/23 09/30/23 History tablet,extended release (Tylenol Arthritis Pain) alendronate 70 mg tablet 70 mg PO QWEEK 08/19/23 09/30/23 History celecoxib 200 mg capsule (Celebrex) 200 mg PO BID 08/19/23 09/30/23 History famotidine 20 mg tablet 20 mg PO DAILY 08/19/23 09/30/23 History ferrous sulfate 325 mg (65 mg 325 mg PO DAILY 08/19/23 09/30/23 History iron) tablet (Feosol) metoprolol succinate 25 mg 25 mg PO BID 08/19/23 09/30/23 History tablet,extended release 24 hr tolterodine 2 mg tablet 2 mg PO DAILY 08/19/23 09/30/23 History lidocaine 5 % topical patch 1 patch topical DAILY #30 ea 10/10/23 Rx Allergies Allergy/AdvReac Type Severity Reaction Status Date / Time No Known Drug Allergies Allergy Verified 09/30/23 10:27 Exam Constitutional Documenting provider has reviewed patient's vital signs: yes Common normals: no apparent distress, oriented x3, healthy appearing, alert and well nourished General appearance: cooperative HENMT Common normals: normocephalic, hearing grossly normal bilaterally and moist oral mucous membranes Head and scalp: normocephalic Eye Common normals: PERRL Pupil: PERRL Neck & C-Spine Common normals: full ROM General: normal visual inspection Chest Common normals: inspection of chest normal Respiratory Common normals: normal respiratory effort, no retractions and no use of accessory muscles Back & Pelvis Lumbar spine/lower back: lumbar spinal tenderness and straight leg raise negative bilaterally Sacroiliac joints: SI joint(s) abnormal (left positive [facility]) Other: decreased sensation following left L2,3,4 dermatomal pattern, increased with ambulation and activity Neuro Common normals: oriented x3, CN's II-XII intact bilaterally, moves all extremities, no focal motor deficits, no sensory deficits noted and deep tendon reflexes 2+ bilaterally Sensorium/orientation: alert Motor exam: strength 5/5 throughout and no movement abnormalities noted Psych Common normals: mental status grossly normal, thought process normal, cooperative, affect normal, speech normal and activity/motor behavior normal Speech: normal speech Thought process: normal thought process Results Additional Findings Additional findings: If on a controlled substance or opioids, I have checked an [place] report on this patient and there are no aberrancies noted in the prescribing history.??If on a controlled substance or opioid a drug screen was completed and reviewed within the last year, and if there has not been a drug screen completed we ordered one today to monitor higher risk, state monitored pain medication use. As part of providing excellent, safe, comprehensive care, the following was completed at our patient's visit: 1. A medication reconciliation and review to ensure accurate knowledge of current/active medications, including asking our patients to inform us about any [id number] medications or herbal remedies/nutritional supplements/alternative remedies. 2. A review to specifically ensure our patients have had annual screening for screening for depression, screening for tobacco use, and screening for unhealthy alcohol use. For concerning screenings had a discussion with the patient, provided patient education, and recommended follow-up with primary care provider when appropriate. If patient noted with a risk of falling, they received education on strength, gait, and balance training to prevent future risk of falling. Assessment and Plan Assessment and Plan (1) Lumbar stenosis with neurogenic claudication: (2) Sacroiliitis: (3) Neuritis: Plan start lidocaine patches 5% 12 hours on 12 hours off, if insurance does not cover she can purchase OTC lidocaine 4% patches encouraged celebrex 200mg BID PRN, has taken once or twice without side effects continue HEP as tolerated f/u 3 months, sooner if needed
== END 2023-10-10 08:51 | disposition home or self-care (01) ==
PROVIDERS: PCP Family Medicine; Visit Provider Nurse Practitioner
DX: M48.062 Spinal stenosis, lumbar region with neurogenic claudication (principal); M46.1 Sacroiliitis, not elsewhere classified; M79.2 Neuralgia and neuritis, unspecified
CPT/HCPCS: G0463

== ENCOUNTER 2024-01-08 09:35 | Outpatient (OUT) | payer MEDICARE, SELFPAY ==
--- OUTSIDE RECORDS SUMMARY | 2024-01-08 09:48 | XMS_ITS | CCD ---
Author Organization [facility]ini[facility] Care Team Providers Care Audograph Operator Name Role Phone Benji Cantrell MD Unavailable [phone] Tony DE LA CRUZ, Lisandra Kwong Primary Care Provider Tony DE LA CRUZ, Lisandra Kwong Primary Care Provider Vance DE LA CRUZ, Mere Moon Attending Unavailable Vance DE LA CRUZ, Mere Moon Attending Unavailable Vance DE LA CRUZ, Mere Moon Attending Unavailable TONY, LISANDRA F Attending Unavailable APLINGFLORENCE Attending Unavailable APLINGFLORENCE Referring Unavailable TONY, LISANDRA F Attending Unavailable APLINGFLORENCE Attending Unavailable APLINGFLORENCE Attending Unavailable TONY, LISANDRA F Attending Unavailable LEIAYANETH KOTHARI Attending Unavailable TONY, LISANDRA F Referring Unavailable BOYCE, BELÉN Attending Unavailable TONY, LISANDRA F Referring Unavailable BOYCE, BELÉN Attending Unavailable TONY, LISANDRA F Referring Unavailable BOYCE, BELÉN Attending Unavailable TONY, LISANDRA F Referring Unavailable LEIAYANETH Attending Unavailable TONY, LISANDRA F Referring Unavailable BOYCE, BELÉN Attending Unavailable TONY, LISANDRA F Referring Unavailable LEIAYANETH Attending Unavailable TONY, LISANDRA F Referring Unavailable LEIAYANETH Attending Unavailable TONY, LISANDRA F Referring Unavailable LEIAYANETH Attending Unavailable TONY, LISANDRA F Referring Unavailable BOYCE, BELÉN Attending Unavailable TONY, LISANDRA F Referring Unavailable BOYCE, BELÉN Attending Unavailable APLINGFLORENCE B Referring Unavailable BOYCE, BELÉN Attending Unavailable TONY, LISANDRA F Referring Unavailable BOYCE, BELÉN Attending Unavailable TONY, LISANDRA F Referring Unavailable BOYCE, BELÉN Attending Unavailable TONY, LISANDRA F Referring Unavailable LEIAYANETH Attending Unavailable TONY, LISANDRA F Referring Unavailable BOYCE, BELÉN Attending Unavailable TONY, LISANDRA F Referring Unavailable CLINT, DENISHA A Attending Unavailable LEIAYANETH KOTHARI Attending Unavailable TONY, LISANDRA Kwong Referring Unavailable LEIAYANETH KOTHARI Attending Unavailable TONY, LISANDRA Kwong Referring Unavailable BOYCE, BELÉN Attending Unavailable TONY, LISANDRA Kwong Referring Unavailable BOYCE, BELÉN Attending Unavailable TONY, LISANDRA F Referring Unavailable BOYCE, BELÉN Attending Unavailable TONY, LISANDRA Kwong Referring Unavailable BOYCE, BELÉN Attending Unavailable TONY, LISANDRA Kwong Referring Unavailable LEIAYANETH KOTHARI Attending Unavailable TONY, LISANDRA F Referring Unavailable BOYCE, BELÉN Attending Unavailable TONY, LISANDRA F Referring Unavailable BOYCE, BELÉN Attending Unavailable TONY, LISANDRA F Referring Unavailable BOYCE, BELÉN Attending Unavailable TONY, LISANDRA Kwong Referring Unavailable BOYCE, BELÉN Attending Unavailable TONY, LISANDRA F Referring Unavailable BOYCE, BELÉN Attending Unavailable TONY, LISANDRA Kwong Referring Unavailable LEIA, YANETH Nahomy Attending Unavailable TONY, LISANDRA Kwong Referring Unavailable Allergies Allergy Classification Reported Allergen(s) Allergy Type Date of Onset Reaction(s) Facility (8 sources) diphenhydrAMINE Drug Allergy 8 Unknown [facility] (8 sources) Sulfonamides (Antibiotic) Drug Allergy 2 Other (See Comments) [facility] Medications Current Medications Medication Drug [...] Active take 1 tablet by mouth every wee k alendronate (Fosamax) 70 MG tablet 1 [...] identified. Impression: Severe scoliosis Corwin Lui D.O. [facility] [employer] XR Lumbar spine 4 ViewsOrder ed By: Denisha Lui on 06-06-2023 [facility] Technology[facility] Work Phone: XR Lumbar spine 4 Viewson Radiology Study observation (narrative) [facility] [employer] SCREENING MAMMOGRAM W/JORDAN, BILATERAL*on 04-10-2021 SCREENING MAMMOGRAM [...] VERY IMPORTANT TO YOUR HEALTH. THE CURRENT [employer] [employer] GUIDELINES RECOMMENDS ANNUAL MAMMOGRAPHY BEGINNING AT AGE 40 THIS FACILITY USES A REMINDER SYSTEM TO ENSURE ALL PATIENTS RECEIVE REMINDER NOTIFICATIONS AT THE APPROPRIATE TIME BASED ON THE RECOMMENDATIONS OF THIS EXAM. Report reported and signed by Filiberto Love on 04/10/2021 1211 Normal [facility] Miller Supervisor Vital Signs Date Time Vital Sign Value Performing Clinician Farhad rodriguez 06-10-2023 10:05-0500 Body height 154.9 cm Lisandra Jimenez MD Work Phone: [facility] 06-10-2023 10:05-0500 Body mass index (BMI) [Ratio] 20.6 kg/m2 Lisandra Jimenez MD Work Phone: [facility] 06-10-2023 10:05-0500 Body weight 49.44 kg Lisandra Jimenez MD Work Phone: [facility] 06-10-2023 10:05-0500 Diastolic blood pressure 68 mm[Hg] Lisandra Jimenez MD Work Phone: [facility] 06-10-2023 10:05-0500 Heart rate 76 /min Lisandra Jimenez MD Work Phone: [facility] 06-10-2023 10:05-0500 Respiratory rate 16 /min Lisandra Jimenez MD Work Phone: [facility] 06-10-2023 10:05-0500 Systolic blood pressure 130 mm[Hg] Lisandra Jimenez MD Work Phone: [facility] Encounters Encounter Date Encounter Type Care Provider Facility Start: 12-12-2023 End: 12-12-2023 ambulatory YANETH J LEIA Not Available Start: 12-10-2023 End: 12-10-2023 ambulatory BELÉN BOYCE Not Available Start: 12-04-2023 End: 12-04-2023 ambulatory BELÉN BOYCE Not Available Start: 12-02-2023 End: 12-02-2023 ambulatory BELÉN BOYCE Not Available Start: 11-27-2023 End: 11-27-2023 ambulatory BELÉN BOYCE Not Available Start: 11-25-2023 End: 11-25-2023 ambulatory BELÉN BOYCE Not Available Start: 11-20-2023 End: 11-20-2023 ambulatory YANETH J LEIA Not Available Start: 11-18-2023 End: 11-18-2023 ambulatory BELÉN BOYCE Not Available Start: 11-13-2023 End: 11-13-2023 ambulatory BELÉN BOYCE Not Available Start: 11-11-2023 End: 11-11-2023 ambulatory BELÉN BOYCE Not Available Start: 11-08-2023 End: 11-08-2023 ambulatory BELÉN BOYCE Not Available Start: 11-04-2023 End: 11-04-2023 ambulatory YANETH J LEIA Not Available Start: 10-29-2023 End: 10-29-2023 ambulatory YANETH J LEIA Not Available Start: 10-22-2023 End: 10-22-2023 ambulatory BELÉN BOYCE Not Available Start: 10-18-2023 End: 10-18-2023 ambulatory YANETH J LEIA Not Available Start: 10-15-2023 End: 10-15-2023 ambulatory BELÉN BOYCE Not Available Start: 10-08-2023 End: 10-08-2023 ambulatory BELÉN BOYCE [...] YANETH DUPREE Not Available Start: 08-19-2023 End: 08-19-2023 ambulatory Mere Woodard MD Facility:[facility] Start: 08-02-2023 Telephone encounter Maya Villalobos RN [facility] Comment on above: Records, transfer to [facility] Start: 07-30-2023 End: 07-30-2023 ambulatory LISANDRA JIMENEZ Not Available Start: 07-17-2023 End: 07-17-2023 ambulatory FLORENCE Duenas APLING Not Available Start: 06-26-2023 End: 06-26-2023 ambulatory FLORENCE Duenas APLING Not Available Start: 06-11-2023 Refill Lisandra [...] loss; Age-related osteoporosis without current pathological fracture ([facility]) Start: 06-10-2023 End: 06-10-2023 Patient encounter status Lisandra Jimenez MD Work Phone: [facility] Work Phone: Start: 06-10-2023 End: 06-10-2023 ambulatory LISANDRA JIMENEZ Not Available Start: 06-06-2023 Refshani Rivera N P Work Phone: [facility] Comment on above: Postnasal discharge Start: 06-05-2023 End: 06-05-2023 ambulatory FLORENCE ROBINS Not Available Start: 06-05-2023 End: 06-05-2023 ambulatory FLORENCE Duenas APLTANA Not Available Start: 06-05-2023 End: 06-05-2023 Office outpatient visit 15 minutes Florence Henrique Josetana BANK RECONCILIATOR Work Phone: [facility] Comment on above: S/P total left [...] lumbosac ral minimum 4 views Florence Duenas Julienne BANK RECONCILIATOR Work Phone: Plan of Treatment Date Care Activity Detail Author Start: 06-10-2024 Medicare Annual Wellness (AWV) Medicare Annual Wellness (AWV) [facility] Start: 01-02-2024 Adult BMI Screening Adult BMI Screen ing [facility] Start: 12-29-2023 Influenza vaccination Influenza Vacc ine [facility] Start: 12-29-2023 Tobacco Screening Tobacco Screening [facility] Start: 12-09-2023 End: 12-09-2023 Patient encounter procedure 12/09/2023 9:40 AM EDT Office Visit [facility] [address] [place] [address] Lisandra Jimenez MD [address] [place] [address] [facility] Start: 08-01-2023 Medicare Annual Wellness (AWV) Medicare Annual Wellness (AWV) [facility] Start: 07-30-2023 End: 07-30-2023 Patient encounter procedure 07/30/2023 9:00 AM EDT Office Visit [facility] [address] [place] [id number] Lisandra Jimenez MD [address] [place] [address] [facility] Start: 07-01-2023 End: 07-01-2023 Patient encounter procedure 07/01/2023 9:00 AM EST [facility] Visit [facility] [address] [place] [address] Florence Robins, BANK RECONCILIATOR [address] [place] [address] [facility] Start: 06-26-2023 End: 06-26-2023 Patient encounter procedure 06/26/2023 10:00 AM EST Office Visit [facility] [address] [place] [address] Florence Robins, BANK RECONCILIATOR [address] [place] [address] [facility] Start: 06-10-2023 End: 06-10-2023 Patient encounter procedure [facility] Comment on above: Arrived Start: 02-10-2023 DTaP,Tdap and Td Vaccines (3 - Td or Tdap) DTaP,Tdap and Td Vaccines (3 - Td or Tdap) [facility] Start: 12-28-2022 COVID-19 Vaccine ( season) COVID-19 Vaccine ( season) [facility] Start: 2010 Fall Risk Screening Fall Risk Screen ing [facility] Start: 1957 Depression Screening Depression Scre ening [facility] Start: 1945 Medicare Annual Wellness Visit Medicare Annual Wellness Visit [facility] Immunizations Immunization Date Immunization Notes Care Provider Fa cility 04-08-2023 RSV, recombinant, protein subunit RSVpreF, adjuvant reconstitu, 120mcg/0.5mL, PF (Arexvy) Lisandra Jimenez MD Work Phone: [facility] 01-28-2023 Influenza, High-dose Seasonal, Quadrivalent, Preservative Free Loli Rivera BANK RECONCILIATOR Work Phone: [facility] Work Phone: 02-06-2022 Influenza, High-dose Seasonal, Quadrivalent, Preservative Free Loli Rivera BANK RECONCILIATOR Work Phone: [facility] 02-06-2022 Moderna Bivalent Price ster Vaccination Loli Rivera BANK RECONCILIATOR Work Phone: [facility] 02-06-2022 Moderna SARS-CoV-2 50mcg/0.5mL Booster Loli Rivera BANK RECONCILIATOR Work Phone: [facility] 02-06-2022 influenza virus vacc ine, unspecified formulation Maya Villalobos RN [facility] 01-26-2021 Influenza, High-dose Seasonal, Quadrivalent, Preservative Free Loli Rivera BANK RECONCILIATOR Work Phone: [facility] 01-27-2020 Influenza, High-dose Seasonal, Quadrivalent, Preservative Free Loli Rivera BANK RECONCILIATOR Work Phone: [facility] 03-12-2019 zoster vaccine recombinant Loli Rivera BANK RECONCILIATOR Work Phone: [facility] 01-26-2019 zoster vaccine, live Loli W olf BANK RECONCILIATOR Work Phone: [facility] 01-22-2019 influenza, high dose seasonal, preservative-free Loli Rivera BANK RECONCILIATOR Work Phone: [facility] 01-22-2019 Influenza, High-dose Seasonal, Quadrivalent, Preservative Free Loli Rivera BANK RECONCILIATOR Work Phone: [facility] 01-22-2019 zoster vaccine recombinant Loli Rivera BANK RECONCILIATOR Work Phone: [facility] 01-20-2018 influenza, high dose seasonal, preservative-free Loli Rivera BANK RECONCILIATOR Work Phone: [facility] 01-20-2018 influenza, injectabl e, quadrivalent, preservative free Loli Rivera BANK RECONCILIATOR Work Phone: [facility] 01-18-2017 influenza, high dose seasonal, preservative-free Loli Rivera BANK RECONCILIATOR Work Phone: [facility] 01-18-2017 Influenza, High-dose Seasonal, Quadrivalent, Preservative Free Loli Rivera BANK RECONCILIATOR Work Phone: [facility] 01-17-2016 influenza, high dose seasonal, preservative-free Loli Rivera BANK RECONCILIATOR Work Phone: [facility] 01-17-2016 pneumococcal conjuga te vaccine, 13 valent Loli Rivera BANK RECONCILIATOR Work Phone: [facility] 01-12-2015 influenza, high dose seasonal, preservative-free Loli Rivera BANK RECONCILIATOR Work Phone: [facility] 01-11-2014 influenza, high dose seasonal, preservative-free Loli Rivera BANK RECONCILIATOR Work Phone: [facility] 02-10-2013 tetanus and diphther ia toxoids, adsorbed, preservative free, for adult use (5 Lf of tetanus toxoid and 2 Lf of diphtheria toxoid) Loli Rivera BANK RECONCILIATOR Work Phone: [facility] 02-10-2013 tetanus toxoid, redu jessica diphtheria toxoid, and acellular pertussis vaccine, adsorbed Loli Rivera BANK RECONCILIATOR Work Phone: [facility] 02-06-2013 seasonal influenza, intradermal, preservative free Loli Rivera BANK RECONCILIATOR Work Phone: [facility] 12-23-2012 zoster vaccine, live Loli W olf BANK RECONCILIATOR Work Phone: [facility] 12-12-2012 pneumococcal polysaccharide vaccine, 23 valent Loli Rivera BANK RECONCILIATOR Work Phone: [facility] 02-06-2012 influenza, seasonal, injectable, preservative free Loli Rivera BANK RECONCILIATOR Work Phone: [facility] 04-17-2004 influenza, seasonal, injectable Loli Rivera BANK RECONCILIATOR Work Phone: [facility] 04-27-2003 influenza, seasonal, injectable Loli Rivera BANK RECONCILIATOR Work Phone: [facility] 04-27-2002 influenza, seasonal, injectable Loli Rivera BANK RECONCILIATOR Work Phone: [facility] 04-01-2001 influenza, seasonal, injectable Loli Rivera BANK RECONCILIATOR Work Phone: [facility] 03-08-1999 pneumococcal polysaccharide vaccine, 23 valent Loli Rivera BANK RECONCILIATOR Work Phone: [facility] Payers Date Payer Category Payer Private Health Insurance 2021 Medicare [id number] 2021 Medicare [id number] 1945 Unknown [id number] 2.16. 840.1.714350.3.579.2.196 1945 Unknown [id number] 2.16. 840.1.873485.3.579.2.196 1945 Unknown [id number] 2.16. 840.1.847579.3.579.2.196 1945 Unknown [id number] 2.16.84 0.1.586083.3.579.2.1259 1945 Unknown [id number] 2.16.84 0.1.946583.3.579.2.1259 1945 Unknown [id number] 2.16.84 0.1.029552.3.579.2.1259 1945 Unknown [id number] 2.16.84 0.1.838065.3.579.2.1259 1945 Unknown [id number] 2.16.84 0.1.841160.3.579.2.1259 1945 Unknown [id number] 2.16.84 0.1.842257.3.579.2.1259 1945 Unknown [id number] 2.16.84 0.1.301221.3.579.2.1259 1945 Unknown [id number] 2.16.84 0.1.507266.3.579.2.1259 1945 Unknown [id number] 2.16.84 0.1.301815.3.579.2.1259 1945 Unknown [id number] 2.16.84 0.1.652598.3.579.2.9 1945 Unknown [id number] 2.16.84 0.1.869565.3.579.2.125 1945 Unknown [id number] 2.16.84 0.1.785699.3.579.2.125 1945 Unknown [id number] 2.16.84 0.1.254671.3.579.2.1258 1945 Unknown [id number] 2.16.84 0.1.627178.3.579.2.9 1945 Unknown [id number] 2.16.84 0.1.089802.3.579.2.1258 1945 Unknown [id number] 2.16.84 0.1.642608.3.579.2.1259 1945 Unknown [id number] 2.16.84 0.1.604618.3.579.2.1258 1945 Unknown [id number] 2.16.84 0.1.451018.3.579.2.1259 1945 Unknown [id number] 2.16.84 0.1.941442.3.579.2.125 1945 Unknown [id number] 2.16.84 0.1.904116.3.579.2.1259 1945 Unknown [id number] 2.16.84 0.1.521372.3.579.2.125 1945 Unknown [id number] 2.16.84 0.1.867318.3.579.2.1259 1945 Unknown [id number] 2.16.84 0.1.535328.3.579.2.125 1945 Unknown [id number] 2.16.84 0.1.570433.3.579.2.1259 1945 Unknown [id number] 2.16.84 0.1.649348.3.579.2.1259 1945 Unknown [id number] 2.16.84 0.1.046359.3.579.2.1259 1945 Unknown [id number] 2.16.84 0.1.439852.3.579.2.1259 1945 Unknown [id number] 2.16.84 0.1.487926.3.579.2.1259 1945 Unknown [id number] 2.16.84 0.1.419933.3.579.2.1259 1945 Unknown [id number] 2.16.84 0.1.822461.3.579.2.1259 1945 Unknown [id number] 2.16.84 0.1.197374.3.579.2.1259 1945 Unknown [id number] 2.16.84 0.1.318722.3.579.2.1259 1945 Unknown [id number] 2.16.84 0.1.306536.3.579.2.1259 1945 Unknown [id number] 2.16.84 0.1.772453.3.579.2.1259 1945 Unknown [id number] 2.16.84 0.1.108163.3.579.2.1259 1945 Unknown [id number] 2.16.840 .1.824674.3.579.2.125 1945 Unknown [id number] 2.16.840 .1.248614.3.579.2.1259 Social History Date Type Detail Facility Start: 05-24-2022 End: 10-10-2022 Tobacco smoking status MTIS Never smoked tobacco [facility] Start: 05-24-2022 End: 10-10-2022 Tobacco use and exposure Smokeless tobacco non-user [facility] Start: 06-05-2023 End: 06-10-2023 Alcohol intake Lifetime non-drinker (finding) [facility] Start: 06-09-2020 End: 12-10-2022 History of Social function [facility] Start: 06-09-2020 End: 12-10-2022 Humiliation, Afraid, Rape, and Kick questionnaire [HARK] [facility] Within the last year , have you been afraid of your partner or ex-partner? No [facility] Attends Mosque Services Not on file [facility] Do you belong to any clubs or organizations such as jehovah's witness groups, unions, fraternal or athletic groups, or school groups? Yes [facility] Are you now , , , , never or living with a partner? Never [facility] How often to you hav e a drink containing alcohol? Never [facility] (I/We) worried wheth er (my/our) food would run out before (I/we) got money to buy more. Never true [facility] Start: 1945 Sex Assigned At Not on file [facility] Start: 07-11-2022 Gender identity Identifies as female gender (finding) [facility] Start: 12-28-2022 Alcohol intake Current non-drinker of alcohol (finding) [facility] Medical Equipment Procedure Code Equipment Code Equipment Origin al Text Equipment Identifier Dates Lens Iol Ultrase rt 11.5d - [id number] - [id number] Start: 04-03-2018 Lens Iol Ultrase rt 13.0d - [id number] - [id number] Start: 08-28-2018 Head Fem 32mm 0m m Vrsy Cocr Hip Rpl [id number] - [id number] - [id number]$$ [id number], [id number] FDA Start: 12-26-2022 Screw Bn 15mm 6. [address]mm [address] Hip Actb Trlg Strl Rpl [id number] - [id number] - [id number] Start: 12-26-2022 Goals Date Patient Goal Desired Activity /State Personal health goal Comment on above: Formatting of this n ote might be different from the original. Evaluation of progress towards goal: Home with support from friend (staying with pt) and [facility] 360 Clinical Notes 06-05-2023 to 08-02-2023 Telephone Encounter - Maya Villalobos RN - 08/02/2023 2:27 PM EDTTelephone Encounter - Maya Villalobos RN - 08/02/2023 2:27 PM EDTTelephone Encounter - Davina Ayers - 06/11/2023 4:37 PM EST Note Date & Type Note Facility 08-02-2023 Miscellaneous Notes Received a phone call from [facility] for patient records to be transferred. documented in this encounter [facility] 08-02-2023 Telephone encounter Note Received a phone call from [facility] for patient records to be transferred. [facility] 06-11-2023 Telephone encounter Note PT Calling to check status of this request, unsure as how to explain the denial of the refill. [facility] 06-11-2023 Miscellaneous Notes PT Calling to check status of this request, unsure as how to explain the denial of the refill. Medication refused due to failing protocol. Requested Prescriptions Pending Prescriptions Disp Refills methylPREDNISolone (Medrol Dospak) 4 MG tablets 21 tablet Sig: Follow schedule on package instructions There is no refill protocol information for this order documented in this encounter [facility] 06-11-2023 Telephone encounter Note Medication refused due to failing protocol. Requested Prescriptions Pending Prescriptions Disp Refills methylPREDNISolone (Medrol Dospak) 4 MG tablets 21 tablet Sig: Follow schedule on package instructions There is no refill protocol information for this order [facility] 06-10-2023 History of Present illness [...] Recheck in 6months documented in this encounter [facility] 06-05-2023 History of Present illness Narrative Subjective [...] encounter [facility] on filedocumented in [facility] Summary Purpose Family History No Family History Records FoundNo Family History Records FoundNo Family History Records Found Advance Directives No Advanced Directives Records FoundDocuments on File Type Date Recorded 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 Expl 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 Living Will 01/17/2023 11:55 AM Durable Power of Database Specialist 01/17/2023 11:54 AM Latest Code Status on File Code Status Date Activated Date Inactivated Comments Full Code 12/28/2022 6:14 PM 01/01/2023 3:49 PM Code Status History Code Status Date Activated Date Inactivated Comments Full Code 12/26/2022 10:18 AM 12/27/2022 7:36 PM Additional Source Comments INFORMATION SOURCE (unrecogn ized section and content) DATE CREATED AUTHOR 04/10/2021 [facility] dical Specialist DATE CREATED AUTHOR AUTHOR'S ORGANIZ ATION 10/10/2023 [facility] DATE CREATED AUTHOR AUTHOR'S ORGANIZ ATION 12/14/2023 [facility] dical Specialists EPIC Reason for Visit (unrecogniz ed section and content) Reason Comments Med Refill Reason Comments Medicare Annual Wellness Visit Subsequen t Reason Onset Date Comments Records, transfer to [facility] 08/02/2023 Care Teams (unrecognized sec tion and content) Audograph Operator Relationship Specialty Start Date End Date Benji Cantrell MD [address] [place] [address] PCP - [employer] 04/29/22 Lisandra Jimenez MD [address] [place] [address] PCP - General Family Medicine 09/10/22 Audograph Operator Relationship Specialty Start Date End Date Benji Cantrell MD [address] [facility] [address] [place] [address] PCP - [employer] 04/29/22 Lisandra Jimenez MD [address] [place] [address] PCP - General Family Medicine 09/10/22 Audograph Operator Relationship Specialty Start Date End Date Benji Cantrell MD [address] [facility] [address] [place] [address] PCP - [employer] 04/29/22 Lisandra Jimenez MD [address] [facility] [place] [address] PCP - General Family Medicine 09/10/22 Audograph Operator Relationship Specialty Start Date End Date Benji Cantrell MD [address] [facility] [address] [place] [address] PCP - [employer] 04/29/22 Lisandra Jimenez MD [address] [facility] [place] [address] PCP - General Family Medicine 09/10/22 Audograph Operator Relationship Specialty Start Date End Date Benji Cantrell MD [address] [place] [address] [place] [address] PCP - [employer] 04/29/22 Lisandra Jimenez MD [address] [facility] [place] [address] PCP - General Family Medicine 09/10/22 Audograph Operator Relationship Specialty Start Date End Date Lisandra Jimenez MD [address] [facility] [place] [address] PCP - General Family Medicine 11/12/16 FOR [...] BE BASED ON THE PRIMARY CLINICAL RECORDS. [facility] [employer] [facility]. provides no warranty or guarantee of the accuracy or completeness of information in this document.
--- NOTE | 2024-01-08 09:58 | PM.CN ---
Consult Note: HPI Data of Consult Patient: known to practice within the last 3 years Consult date: 08/19/23 Requesting Physician: Teresa Lynn NP Primary Care Provider: YOLA AMES Consult Narrative Reason for consult: low back, left hip pain Narrative: [id number] who presents for evaluation. worsening low back and left hip pain. imaging shows severe scoliosis with degenerative changes. had left hip replaced, though states this pain feels different. primarily utilizes tylenol, which does not help. has tried >6 weeks of provider directed home exercises, with minimal benefit. denies adverse med side effects. recent lumbar MRI consistent with degenerative changes and lumbar stenosis. has takencelebrex sparingly without side effects, unsure of improvement or not. Patient reports >50% improvement in pain and functional ability from previous left SIJ and Left L2-3 3-4 TFESI greater than 3 months. Patient reporting pain 6-7/10 in left hip, has not started utilizing lidocaine patches but did bring them with her today. cc:: CC: Teresa Lynn NP Review of Systems ROS Status of ROS 10 or more systems reviewed and unremarkable except as noted in history and below Musculoskeletal Reports: back pain and joint pain [facility] Medical History (Updated 10/10/23 @ 09:33 by Teresa Lynn NP) Low back pain ?M54.50 - Low back pain, unspecified (ICD-10) Surgical History History of hip replacement ?Z96.649 - Presence of unspecified artificial hip joint (ICD-10) Meds Home Medications and Allergies Home Medications ?Medication ?Instructions ?Recorded ?Confirmed ?Type acetaminophen 650 mg 650 mg PO Q12H PRN pain 08/19/23 09/30/23 History tablet,extended release (Tylenol Arthritis Pain) alendronate 70 mg tablet 70 mg PO QWEEK 08/19/23 09/30/23 History celecoxib 200 mg capsule (Celebrex) 200 mg PO BID 08/19/23 09/30/23 History famotidine 20 mg tablet 20 mg PO DAILY 08/19/23 09/30/23 History ferrous sulfate 325 mg (65 mg 325 mg PO DAILY 08/19/23 09/30/23 History iron) tablet (Feosol) metoprolol succinate 25 mg 25 mg PO BID 08/19/23 09/30/23 History tablet,extended release 24 hr tolterodine 2 mg tablet 2 mg PO DAILY 08/19/23 09/30/23 History lidocaine 5 % topical patch 1 patch topical DAILY #30 ea 10/10/23 Rx Allergies Allergy/AdvReac Type Severity Reaction Status Date / Time No Known Drug Allergies Allergy Verified 09/30/23 10:27 Exam Constitutional Documenting provider has reviewed patient's vital signs: yes Common normals: no apparent distress, healthy appearing, alert and well nourished; negative for oriented x3 (alert to self, place. unsure of date/time verbalized season ) General appearance: cooperative HENNH Common normals: normocephalic, hearing grossly normal bilaterally and moist oral mucous membranes Head and scalp: normocephalic Eye Common normals: PERRL Pupil: PERRL Neck & C-Spine Common normals: full ROM General: normal visual inspection Chest Common normals: inspection of chest normal Respiratory Common normals: normal respiratory effort, no retractions and no use of accessory muscles Back & Pelvis Lumbar spine/lower back: ROM limited, pain with ROM and straight leg raise positive right Sacroiliac joints: SI joint(s) abnormal Other: pain across L2-4 facets, positive facet loading altered sensation to left l2,3,4 pattern left SIJ positive leeann(patricks), gaenslens, thigh thrust, compression test Extremity Common normals: normal to inspection and full ROM Neuro Common normals: oriented x3, CN's II-XII intact bilaterally, moves all extremities, no focal motor deficits, no sensory deficits noted and deep tendon reflexes 2+ bilaterally Sensorium/orientation: alert Motor exam: strength 5/5 throughout and no movement abnormalities noted Psych Common normals: mental status grossly normal, thought process normal, cooperative, affect normal, speech normal and activity/motor behavior normal Speech: normal speech Thought process: normal thought process Results Additional Findings Additional findings: If on a controlled substance or opioids, I have checked an [place] report on this patient and there are no aberrancies noted in the prescribing history.??If on a controlled substance or opioid a drug screen was completed and reviewed within the last year, and if there has not been a drug screen completed we ordered one today to monitor higher risk, state monitored pain medication use. As part of providing excellent, safe, comprehensive care, the following was completed at our patient's visit: 1. A medication reconciliation and review to ensure accurate knowledge of current/active medications, including asking our patients to inform us about any [id number] medications or herbal remedies/nutritional supplements/alternative remedies. 2. A review to specifically ensure our patients have had annual screening for screening for depression, screening for tobacco use, and screening for unhealthy alcohol use. For concerning screenings had a discussion with the patient, provided patient education, and recommended follow-up with primary care provider when appropriate. If patient noted with a risk of falling, they received education on strength, gait, and balance training to prevent future risk of falling. Assessment and Plan Assessment and Plan (1) Sacroiliitis: (2) Lumbar stenosis with neurogenic claudication: Plan repeat left SIJ injection under fluoroscopy for sacroiliitis, previous injection >50% improvement greater than 3 months lidocaine patch applied to left paralumbar/sij continue current medications f/u after injection
== END 2024-01-08 09:36 | disposition home or self-care (01) ==
LOC: PM 09:35
PROVIDERS: PCP Family Medicine; Visit Provider Nurse Practitioner
DX: M46.1 Sacroiliitis, not elsewhere classified (principal); M48.062 Spinal stenosis, lumbar region with neurogenic claudication
CPT/HCPCS: G0463

== ENCOUNTER 2024-03-23 11:25 | Outpatient (OUT) | payer MEDICARE, SELFPAY ==
--- OUTSIDE RECORDS SUMMARY | 2024-03-23 11:33 | XMS_ITS | CCD ---
Author Organization [facility] Care Team Providers Care Er Manager Name Role Phone Benji Cantrell MD Unavailable Tony DE LA CRUZ, Lisandra Kwong Primary Care Provider [phone] Tony DE LA CRUZ, Lisandra Kwong Primary Care Provider Vance DE LA CRUZ, Mere Moon Attending Unavailable Vance DE LA CRUZ, Mere Moon Attending Unavailable Vance DE LA CRUZ, Mere Moon Attending Unavailable TONY, LISANDRA F Primary Care Unavailable SERGIO JARVIS Attending Unavailable CHRISKELSEY Admitting Unavailable MATHEUSSERGIO REYES Attending Unavailable MATHEUSSERGIO Referring Unavailable TONY, LISANDRA F Primary Care Unavailable TONY, LISANDRA F Attending Unavailable APLINGFLORENCE Attending Unavailable APLING, FLORENCE Duenas Referring Unavailable TONY, LISANDRA F Attending Unavailable APLINGFLORENCE Attending Unavailable APLINGFLORENCE Attending Unavailable TONY, LISANDRA F Attending Unavailable LEIAYANETH KOTHARI Attending Unavailable TONY, LISANDRA F Referring Unavailable BOYCEBELÉN Attending Unavailable TONY, LISANDRA F Referring Unavailable BOYCEBELÉN Attending Unavailable TONY, LISANDRA F Referring Unavailable BOYCEBELÉN Attending Unavailable TONY, LISANDRA F Referring Unavailable LEIAYANETH Attending Unavailable TONY, LISANDRA F Referring Unavailable BOYCEBELÉN Attending Unavailable TONY, LISANDRA F Referring Unavailable LEIAYANETH Attending Unavailable TONY, LISANDRA F Referring Unavailable DENISHA LUI Attending Unavailable LEIAYANETH KOTHARI Attending Unavailable TONY, LISANDRA F Referring Unavailable LEIAYANETH Attending Unavailable TONY, LISANDRA F Referring Unavailable BOYCEBELÉN Attending Unavailable TONY, LISANDRA F Referring Unavailable BOYCEBELÉN Attending Unavailable APLINGFLORENCE Referring Unavailable BOYCEBELÉN Attending Unavailable TONY, LISANDRA F Referring Unavailable BOYCEBELÉN Attending Unavailable TONY, LISANDRA F Referring Unavailable [...] Attending Unavailable TONY, LISANDRA F Referring Unavailable TONY, LISANDRA Kwong Attending Unavailable JEY GOMEZ Attending Unavailable TONY, LISANDRA F Attending Unavailable Benji Cantrell MD Unavailable [phone] Allergies Allergy Classification Reported Allergen(s) Allergy Type Date of Onset Reaction(s) Facility (12 sources) diphenhydrAMINE Drug Allergy 03-25-20 18 Unknown [facility] (12 sources) Sulfonamides (Antibiotic) Drug Allergy 09-02-19 Other (See Comments) [facility] (1 source) diphenhydrAMINE; Translations: [DIPHENHYDRAMINE HCL] Drug Allergy 03-25-20 18 [facility] (1 source) Sulfonamides (Antibiotic); Translations: [SULFA (SULFONAMIDE ANTIBIOTICS)] Propensity to adverse reactions to drug (disorder) 09-02-19 [facility] Medications Current Medications Medication Drug Class(es) Dates Sig (Normalized) Sig (Original) Acetaminophen (12 sources) Acetaminophen (T YLENOL 8 HOUR ARTHRITIS PAIN PO) Tylenol Arthritis Pain Active take 1 tablet by valerie th every six hours as needed for pain acetaminophen (TYLENOL EXTRA STRENGTH) 5 00 mg tablet Take 1 tablet (500 mg total) by mouth every 6 (six) hours as needed for pain. 0 Active Acetaminophen (T YLENOL 8 HOUR ARTHRITIS PAIN PO) Tylenol Arthritis Pain 0 Active alendronic acid 70 mg oral tablet (13 sources) Bisphosphonate Start: 03-03-2024 take 1 tablet by mouth in the morning alendronate (Fosamax) 70 MG tablet Indications: Age-related osteoporosis without current pathological fracture (CMS/HCC) Take 1 tablet (70 mg) by mouth every 7 (seven) days Take in the morning with a full glass of water, on an empty stomach, and do not take anything else by mouth or lie down for the next 30 min. 12 tablet 11 03/03/2024 Active Start: 08-02-2023 End: 03-03-2024 alendronate (Fosamax) 70 MG tablet Indications: Age-related osteoporosis without current pathological fracture (CMS/HCC) TAKE 1 TABLET ONCE A WEEK ON EMPTY STOMACH WITH FULL GLASS OF WATER AND STAY UPRIGHT FOR 30 MINS 12 tablet 5 08/02/2023 03/03/2024 Discontinued (Reorder) Start: 04-16-2022 alendronate (F OSAMAX) 70 mg tablet Take 1 tablet (70 mg total) by mouth every 7 days. Takes it every Saturday 0 04/16/2022 Active take 1 tablet by valerie th every week alendronate (Fosamax) 70 MG tablet 1 TABLET ORALLY ONCE A WEEK ON EMPTY STOMACH WITH FULL GALSS OF WATER AND STAY UPRIGHT FOR 30 MINS 0 Active azelastine hydrochloride 0.5 mg/ml ophthalmic solution (12 sources) Histamine-1 Receptor Antagonist take 1 drop(s) into the eye(s) twice daily azelastine (Optivar) 0.05 % ophthalmic solution INSTILL 1 DROP INTO BOTH EYES TWICE A DAY Ophthalmic for 90 Days Active take 1 drop(s) into the eye(s) in the morning azelastine (OPTIVAR) 0.05 % ophthalmic solution Administer 1 drop to both eyes in the morning and 1 drop before bedtime. 0 Active benzonatate 100 mg oral capsule (4 sources) Non-narcotic Antitussive Start: 01-11-2024 take 1 capsule by mouth three times daily as needed benzonatate (Tessalon) 100 MG capsule Take 100 mg by mouth 3 (three) times a day as needed 01/11/2024 Active docusate sodium 100 mg oral capsule (7 sources) take 1 capsule by mouth in the morning docusate sodium (Colace) 100 MG capsule Take 100 mg by mouth in the morning and 100 mg before bedtime. Active famotidine 20 mg oral tablet (13 sources) Histamine-2 Receptor Antagonist Start: 03-03-2024 take 1 tablet by mouth once daily famotidine (Pepcid) 20 MG tablet Indications: Gastroesophageal reflux disease without esophagitis Take 1 tablet (20 mg) by mouth Daily 90 tablet 11 03/03/2024 Active Start: 02-04-2023 End: 03-03-2024 take 1 tablet by mouth once daily famotidine (Pepcid) 20 MG tablet Indications: Gastroesophageal reflux disease without esophagitis TAKE 1 TABLET BY MOUTH EVERY DAY 90 tablet 3 02/04/2023 03/03/2024 Discontinued (Reorder) ferrous fumarate-vitamin C E R (Lenin-Sequeles 65-25) (6 sources) End: 06-10-2023 ferrous fumarate-vitamin C E R (Lenin-Sequeles 65-25) Take 1 tablet by mouth [...] sulfate 325 mg delayed release oral tablet (11 sources) Start: 04-25-2023 take 1 tablet by mouth at mealtime ferrous sulfate 325 (65 Fe) MG EC tablet TAKE 1 TABLET (325 MG) BY MOUTH IN THE MORNING. TAKE WITH MEALS. DO NOT CRUSH, CHEW, OR SPLIT.. 04/25/2023 Active fluticasone propionate 0.05 mg/actuat metered dose nasal spray (13 sources) Corticosteroid Start: 06-06-2023 take 2 spray(s) [...] Active metoprolol tartrate 25 mg oral tablet (13 sources) beta-Adrenergic Rosa Start: 01-01-2023 End: 02-16-2027 take 1 tablet by mouth in the morning metoprolol tartrate (Lopressor) 25 MG tablet Indications: Tachycardia Take 1 tablet (25 mg) by mouth in the morning and 1 tablet (25 mg) before bedtime. 180 tablet 11 03/03/2024 02/16/2027 Active oxyCODONE hydrochloride 5 mg oral tablet [...] tartrate 2 mg extended release oral capsule (12 sources) Cholinergic Muscarinic Antagonist Start: 03-03-2024 End: 03-03-2025 take 1 capsule by mouth once daily tolterodine LA (Detrol LA) 2 MG 24 hr capsule Indications: Mixed stress and urge urinary incontinence Take 1 capsule (2 mg) by mouth Daily Do not crush, chew, or split. 90 capsule 3 03/03/2024 03/03/2025 Active Start: 04-30-2023 End: 04-29-2024 take 1 capsule by mouth every twenty-four hours in the morning tolterodine LA (Detrol LA) 2 MG 24 hr capsule Indications: Mixed stress and urge urinary incontinence Take 1 capsule (2 mg) by mouth in the morning. Do not crush, chew, or split.. 30 capsule 11 04/30/2023 03/03/2024 Discontinued (Reorder) Problems Active Problems Problem Classification Problem Date Documented Date Episodic/Chronic Acquired foot deformities (20 sources) Acquired hallux valgus; Translations: [Hallux valgus (acquired), unspecified foot] Onset: 02-22-2022 10-10-2022 Chronic Cardiac dysrhythmias (14 sources) Tachycardia; Translations: [Tachycardia, unspecified] Onset: 12-28-2022 01-09-2023 Episodic Esophageal disorders (20 sources) Gastroesophageal reflux disease; Translations: [Gastro-esophageal reflux disease without esophagitis] Onset: 02-22-2022 10-10-2022 Chronic Genitourinary symptoms and ill-defined conditions (2 sources) Mixed urinary incontinence; Translations: [Mixed incontinence] 03-03-2024 Chronic Immunizations and screening for infectious disease (2 sources) Patient encounter status; Translations: [Encounter for immunization] 02-03-2024 Episodic Malaise and fatigue (1 source) Weakness; Translations: [Weakness] Onset: 01-10-2024 Episodic Osteoarthritis (20 sources) Osteoarthritis of left hip joint; Translations: [Unilateral primary osteoarthritis, left hip] Onset: 02-22-2022 Resolved: 12-30-2022 10-10-2022 Chronic Osteoporosis (20 sources) Senile osteoporosis; Translations: [Age-related osteoporosis without current pathological fracture] Onset: 02-22-2022 10-10-2022 Chronic Other acquired deformities (12 sources) Other secondary scoliosis, site unspecified; Translations: [Disorder of bone and cartilage, unspecified] Onset: 02-22-2022 10-10-2022 Chronic Other acquired deformities (2 sources) Scoliosis deformity of spine; Translations: [Scoliosis, unspecified] 06-05-2023 Chronic Other bone disease and musculoskeletal deformities (12 sources) Idiopathic scoliosis of thoracic and lumbar spine; Translations: [Other idiopathic scoliosis, thoracolumbar region] Onset: 02-22-2022 11-29-2022 Chronic Other congenital anomalies (11 sources) Porokeratosis; Translations: [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, lumbar region] Onset: 02-22-2022 10-10-2022 Chronic Unclassified (1 source) Confirmed Davis Virus Onset: 01-10-2024 Unclassified (1 source) Weakness - Generalized Onset: 01-10-2024 Viral infection (6 sources) Disease caused by 2019-nCoV; Translations: [COVID-19] Onset: 01-10-2024 02-01-2024 Episodic Viral infection (2 sources) COVID-19; Translations: [Disease caused by 2019-nCoV] Onset: 01-10-2024 Past or Other Problems Problem Classification Problem Date Documented Date Episodic/Chronic Acute posthemorrhagic anemia (14 sources) Anemia following acute postoperative blood loss; Translations: [Acute posthemorrhagic anemia] Onset: 12-30-2022 01-09-2023 Episodic Mood disorders (7 sources) Mood disorders Onset: 06-10-2023 06-10-2023 Other connective tissue disease (1 source) History of repair of hip joint; Translations: [Presence of left artificial hip joint] Onset: 12-29-2022 Resolved: 12-30-2022 12-30-2022 Chronic Spondylosis; intervertebral disc disorders; other back problems (18 sources) Disorder of sacrum; Translations: [Sacrococcygeal disorders, not elsewhere classified] Onset: 04-05-2022 11-29-2022 Episodic Results Test Name Value Interpretation Reference Range Facil ity CBC AND AUTO DIFFon 09-15-20 24 ABSOLUTE BASOPHIL 0.0 X10E9/L Normal 0.0-0.2 [facility] Comment on above: Performed By: #### Deanna BROWN [facility], [address]5592-9 #### [facility] ([id number]) [address] [place] [address] 72896 ABSOLUTE NEUTROPHIL 5.0 X10E9/L Normal 1.5-6.6 [facility] Comment on above: Performed By: #### Deanna BROWN [facility], #### [facility] ([id number]) [address] [place] [address] 98014 Basophils/100 WBC (Bld) 0.2 % Normal [facility] Comment on above: Performed By: #### Deanna BROWN CMP, #### [facility] ([id number]) [address] [place] [address] 98216 Eosinophils (Bld) [#/Vol] 0.1 10*3/uL Normal 0.0-0.4 [facility] Comment on above: Performed By: #### Deanna BROWN [facility], #### [facility] ([id number]) [address] [place] [address] 12234 Eosinophils/100 WBC (Bld) 1.2 % Normal [facility] Comment on above: Performed By: #### Deanna BROWN [facility], #### [facility] ([id number]) [address] [place] [address] 94909 Erythrocyte distribution width (RBC) [Ratio] 13.4 % Normal 11.5-15.0 [facility] Comment on above: Performed By: #### Deanna BROWN CMP, #### [facility] ([id number]) [address] [place] [address] 37884 Hematocrit (Bld) [Volume fraction] 39.6 % Normal 35-47 [facility] Comment on above: Performed By: #### C REDD BROWN, #### [facility] ([id number]) [address] [place] [address] 19656 Hemoglobin (Bld) [Mass/Vol] 13.2 g/dL Normal 11.7-15.5 [facility] Comment on above: Performed By: #### Deanna BROWN CMP, #### [facility] ([id number]) [address] [place] [address] 10275 Lymphocytes (Bld) [#/Vol] 1.0 10*3/uL Normal 1.0-3.5 [facility] Comment on above: Performed By: #### Deanna BROWN CMP, #### [facility] ([id number]) [address] [place] [address] 96272 Lymphocytes/100 WBC (Bld) 14.2 % Normal [facility] Comment on above: Performed By: #### Deanna BROWN CMP, #### [facility] ([id number]) [address] [place] [address] 86725 MCH (RBC) [Entitic mass] 31.0 pg Normal 27-34 [facility] Comment on above: Performed By: #### Deanna BROWN CMP, #### [facility] ([id number]) [address] [place] [address] 99248 MCHC (RBC) [Mass/Vol] 33.4 g/dL Normal 32-36 [facility] Comment on above: Performed By: #### Deanna BROWN CMP, #### [facility] ([id number]) [address] [place] [address] 67995 MCV (RBC) [Entitic vol] 93 fL Normal 80-100 [facility] Comment on above: Performed By: #### Deanna BROWN CMP, #### [facility] ([id number]) [address] [place] [address] 93503 Monocytes (Bld) [#/Vol] 1.2 10*3/uL High 0-0.9 [facility] Comment on above: Performed By: #### Deanna BROWN, CMP, 76445-9 #### [facility] ([id number]) [address] [place] [address] 74942 Monocytes/100 WBC (Bld) 16.8 % Normal [facility] Comment on above: Performed By: #### Deanna BROWN, CMP, 72837-0 #### [facility] ([id number]) [address] [place] [address] 43841 Neutrophils/100 WBC (Bld) 67.6 % Normal [facility] Comment on above: Performed By: #### Deanna BROWN, CMP, 91564-4 #### [facility] ([id number]) [address] [place] [address] 62460 Platelet mean volume (Bld) [Entitic vol] 8.6 fL Normal 7-12 [facility] Comment on above: Performed By: #### Deanna BROWN, CMP, #### [facility] ([id number]) [address] [place] [address] 34582 Platelets (Bld) [#/Vol] 172 10*3/uL Normal 150-450 [facility] Comment on above: Performed By: #### Deanna BCA, CMP, #### [facility] ([id number]) [address] [place] [address] 34572 RBC COUNT 4.26 X10E12/L Normal 3.80-5.20 [facility] Comment on above: Performed By: #### Deanna BROWN, CMP, #### [facility] ([id number]) [address] [place] [address] 54705 WBC (Bld) [#/Vol] 7.3 10*3/uL Normal 4.0-11.0 [facility] Comment on above: Performed By: #### C BCA, CMP, [id number] #### [facility] ([id number]) [address] [place] [address] 49051 COMPREHENSIVE METABOLIC PANE Cruzito 01-12-2024 Albumin [Mass/Vol] 3.8 g/dL Normal 3.2-5.3 [facility] Comment on above: Performed By: #### B MP, LIVR, CBCA #### [facility] ([id number]) [address] [place] [address] 12624 ALP [Catalytic activity/Vol] 49 U/L Normal 39-130 [facility] Comment on above: Performed By: #### B MP, LIVR, CBCA #### [facility] ([id number]) [address] [place] [address] 03554 ALT [Catalytic activity/Vol] 28 U/L Normal 0-31 [facility] Comment on above: Performed By: #### B MP, LIVR, CBCA #### [facility] ([id number]) [address] [place] [address] 06376 Anion gap [Moles/Vol] 9 mmol/L Normal 5-15 [facility] Comment on above: Performed By: #### B MP, LIVR, CBCA #### [facility] ([id number]) [address] [place] [address] 01448 AST [Catalytic activity/Vol] 31 U/L Normal 0-41 [facility] Comment on above: Performed By: #### B MP, LIVR, CBCA #### [facility] ([id number]) [address] [place] [address] 53766 Bilirubin [Mass/Vol] 0.4 mg/dL Normal 0.3-1.2 [facility] Comment on above: Performed By: #### B ANJUM LIVR, CBCA #### [facility] ([id number]) [address] [place] [address] 29587 Calcium [Mass/Vol] 8.5 mg/dL Normal 8.5-10.5 [facility] Comment on above: Performed By: #### B ANJUM LIVR, CBCA #### [facility] ([id number]) [address] [place] [address] 05211 Chloride [Moles/Vol] 104 mmol/L Normal 98-109 [facility] Comment on above: Performed By: #### B ANJUM LIVR, CBCA #### [facility] ([id number]) [address] [place] [address] 57222 CO2 [Moles/Vol] 25 mmol/L Normal 22-32 [facility] Comment on above: Performed By: #### B ANJUM LIVR, CBCA #### [facility] ([id number]) [address] [place] [address] 53247 Creatinine [Mass/Vol] 0.79 mg/dL Normal 0.40-1.00 [facility] Comment on above: Result Comment: METH OD TRACEABLE TO IDMS STANDARD Performed By: #### B ANJUM LIVNaima, CBCA #### [facility] ([id number]) [address] [place] [address] 77431 GFR/1.73 sq M.predicted among non-blacks MDRD (S/P/Bld) [Vol rate/Area] 77 mL/min/{1.73_m2} Normal >59 [facility] Comment on above: Result Comment: Reported eGFR is based on the CKD-EPI 1 equation that does not use a race coefficient. Performed By: #### B ANJUM, LIVR, CBCA #### [facility] ([id number]) [address] [place] [address] 92176 Glucose [Mass/Vol] 78 mg/dL Normal 65-99 [facility] Comment on above: Performed By: #### B MP, LIVR, CBCA #### [facility] ([id number]) [address] [place] [address] 82369 Potassium [Moles/Vol] 3.7 mmol/L Normal 3.5-5.0 [facility] Comment on above: Performed By: #### B MP, LIVR, CBCA #### [facility] ([id number]) [address] [place] [address] 89610 Protein [Mass/Vol] 6.8 g/dL Normal 6.0-8.0 [facility] Comment on above: Performed By: #### B MP, LIVR, CBCA #### [facility] ([id number]) [address] [place] [address] 54285 Sodium [Moles/Vol] 138 mmol/L Normal 134-146 [facility] Comment on above: Performed By: #### B MP, LIVR, CBCA #### [facility] ([id number]) [address] [place] [address] 10323 Urea nitrogen [Mass/Vol] 18 mg/dL Normal 5-27 [facility] Comment on above: Performed By: #### B MP, LIVR, CBCA #### [facility] ([id number]) [address] [place] [address] 15633 MAGNESIUMon 01-12-2024 Magnesium [Mass/Vol] 2.2 mg/dL Normal 1.8-2.6 [facility] Comment on above: Performed By: #### B MP, LIVR, CBCA #### [facility] ([id number]) [address] [place] [address] 62531 CBC AND AUTO DIFFon 01-11-20 ABSOLUTE BASOPHIL 0.0 X10E9/L Normal 0.0-0.2 [facility] Comment on above: Performed By: #### C BCA, CMP, , THYR #### [facility] ([id number]) [address] [place] [address] 31058 ABSOLUTE NEUTROPHIL 4.2 X10E9/L Normal 1.5-6.6 [facility] Comment on above: Performed By: #### C BCA, CMP, , THYR #### [facility] ([id number]) [address] [place] [address] 30896 Basophils/100 WBC (Bld) 0.2 % Normal [facility] Comment on above: Performed By: #### C KEVIN, CMP, , THYR #### [facility] ([id number]) [address] [place] [address] 72408 Eosinophils (Bld) [#/Vol] 0.0 10*3/uL Normal 0.0-0.4 [facility] Comment on above: Performed By: #### C BCA, CMP, , THYR #### [facility] ([id number]) [address] [place] [address] 09467 Eosinophils/100 WBC (Bld) 0.2 % Normal [facility] Comment on above: Performed By: #### C BCA CMP, , THYR #### [facility] ([id number]) [address] [place] [address] 92121 Erythrocyte distribution width (RBC) [Ratio] 13.1 % Normal 11.5-15.0 [facility] Comment on above: Performed By: #### C BCA, CMP, , THYR #### [facility] ([id number]) [address] [place] [address] 78564 Hematocrit (Bld) [Volume fraction] 37.4 % Normal 35-47 [facility] Comment on above: Performed By: #### C BCA, CMP, , THYR #### [facility] ([id number]) [address] [place] [address] 45150 Hemoglobin (Bld) [Mass/Vol] 12.7 g/dL Normal 11.7-15.5 [facility] Comment on above: Performed By: #### C KEVIN CMP, , THYR #### [facility] ([id number]) [address] [place] [address] 24578 Lymphocytes (Bld) [#/Vol] 0.9 10*3/uL Low 1.0-3.5 [facility] Comment on above: Performed By: #### C KEVIN [facility], , THYR #### [facility] ([id number]) [address] [place] [address] 68278 Lymphocytes/100 WBC (Bld) 13.6 % Normal [facility] Comment on above: Performed By: #### C KEVIN, [facility], , THYR #### [facility] ([id number]) [address] [place] [address] 28192 MCH (RBC) [Entitic mass] 31.2 pg Normal 27-34 [facility] Comment on above: Performed By: #### Deanna BROWN CMP, , THYR #### [facility] ([id number]) [address] [place] [address] 42877 MCHC (RBC) [Mass/Vol] 33.9 g/dL Normal 32-36 [facility] Comment on above: Performed By: #### C KEVIN CMP, , THYR #### [facility] ([id number]) [address] [place] [address] 83105 MCV (RBC) [Entitic vol] 92 fL Normal 80-100 [facility] Comment on above: Performed By: #### Deanna BCA CMP, , THYR #### [facility] ([id number]) [address] [place] [address] 56561 Monocytes (Bld) [#/Vol] 1.2 10*3/uL High 0-0.9 [facility] Comment on above: Performed By: #### C KEVIN CMP, , THYR #### [facility] ([id number]) [address] [place] [address] 13739 Monocytes/100 WBC (Bld) 19.3 % Normal [facility] Comment on above: Performed By: #### Deanna BROWN CMP, , THYR #### [facility] ([id number]) [address] [place] [address] 06197 Neutrophils/100 WBC (Bld) 66.7 % Normal [facility] Comment on above: Performed By: #### Deanna BROWN CMP, , THYR #### [facility] ([id number]) [address] [place] [address] 27614 Platelet mean volume (Bld) [Entitic vol] 8.3 fL Normal 7-12 [facility] Comment on above: Performed By: #### Deanna BROWN CMP, , THYR #### [facility] ([id number]) [address] [place] [address] 32704 Platelets (Bld) [#/Vol] 174 10*3/uL Normal 150-450 [facility] Comment on above: Performed By: #### Deanna BROWN, CMP, , THYR #### [facility] ([id number]) [address] [place] [address] 55642 RBC COUNT 4.06 X10E12/L Normal 3.80-5.20 [facility] Comment on above: Performed By: #### Deanna BROWN CMP, , THYR #### [facility] ([id number]) [address] [place] [address] 34576 WBC (Bld) [#/Vol] 6.3 10*3/uL Normal 4.0-11.0 [facility] Comment on above: Performed By: #### C BCA, CMP, , THYR #### [facility] ([id number]) [address] [place] [address] 38060 COMPREHENSIVE METABOLIC PANE Cruzito 01-11-2024 Albumin [Mass/Vol] 3.6 g/dL Normal 3.2-5.3 [facility] Comment on above: Performed By: #### C BCA, CMP, , THYR #### [facility] ([id number]) [address] [place] [address] 49539 ALP [Catalytic activity/Vol] 47 U/L Normal 39-130 [facility] Comment on above: Performed By: #### C BCA, CMP, , THYR #### [facility] ([id number]) [address] [place] [address] [id number] ALT [Catalytic activity/Vol] 27 U/L Normal 0-31 [facility] Comment on above: Performed By: #### C BCA, CMP, , THYR #### [facility] ([id number]) [address] [place] [address] [id number] Anion gap [Moles/Vol] 9 mmol/L Normal 5-15 [facility] Comment on above: Performed By: #### C BCA, CMP, , THYR #### [facility] ([id number]) [address] [place] [address] [id number] AST [Catalytic activity/Vol] 28 U/L Normal 0-41 [facility] Comment on above: Performed By: #### C BCA, CMP, , THYR #### [facility] ([id number]) [address] [place] [address] 21182 Bilirubin [Mass/Vol] 0.5 mg/dL Normal 0.3-1.2 [facility] Comment on above: Performed By: #### C BCA, CMP, , THYR #### [facility] ([id number]) [address] [place] [address] 01421 Calcium [Mass/Vol] 8.5 mg/dL Normal 8.5-10.5 [facility] Comment on above: Performed By: #### C BCA CMP, , THYR #### [facility] ([id number]) [address] [place] [address] 47801 Chloride [Moles/Vol] 106 mmol/L Normal 98-109 [facility] Comment on above: Performed By: #### C BCA CMP, , THYR #### [facility] ([id number]) [address] [place] [address] 12975 CO2 [Moles/Vol] 24 mmol/L Normal 22-32 [facility] Comment on above: Performed By: #### Deanna BCA, CMP, , THYR #### [facility] ([id number]) [address] [place] [address] 11451 Creatinine [Mass/Vol] 0.74 mg/dL Normal 0.40-1.00 [facility] Comment on above: Result Comment: METH OD TRACEABLE TO IDMS STANDARD Performed By: #### C BCA, CMP, , THYR #### [facility] ([id number]) [address] [place] [address] 97798 GFR/1.73 sq M.predicted among non-blacks MDRD (S/P/Bld) [Vol rate/Area] 83 mL/min/{1.73_m2} Normal >59 [facility] Comment on above: Result Comment: Reported eGFR is based on the CKD-EPI 2020 equation that does not use a race coefficient. Performed By: #### C REDD BROWN, , THYR #### [facility] ([id number]) [address] [place] [address] 99349 Glucose [Mass/Vol] 91 mg/dL Normal 65-99 [facility] Comment on above: Performed By: #### C REDD BROWN, , THYR #### [facility] ([id number]) [address] [place] [address] 82734 Potassium [Moles/Vol] 3.7 mmol/L Normal 3.5-5.0 [facility] Comment on above: Performed By: #### C REDD BROWN, , THYR #### [facility] ([id number]) [address] [place] [address] 52010 Protein [Mass/Vol] 6.5 g/dL Normal 6.0-8.0 [facility] Comment on above: Performed By: #### C REDD BROWN, , THYR #### [facility] ([id number]) [address] [place] [address] 56987 Sodium [Moles/Vol] 139 mmol/L Normal 134-146 [facility] Comment on above: Performed By: #### C REDD BROWN, , THYR #### [facility] ([id number]) [address] [place] [address] 55917 Urea nitrogen [Mass/Vol] 15 mg/dL Normal 5-27 [facility] Comment on above: Performed By: #### C REDD BROWN, , THYR #### [facility] ([id number]) [address] [place] [address] 17376 MAGNESIUMon 01-11-2024 Magnesium [Mass/Vol] 2.6 mg/dL Normal 1.8-2.6 [facility] Comment on above: Performed By: #### 1 [id number] #### [facility] ([id number]) [address] [place] [address] 89131 Magnesium [Mass/Vol] 1.8 mg/dL Normal 1.8-2.6 [facility] Comment on above: Performed By: #### C BCA, CMP, , THYR #### [facility] ([id number]) [address] [place] [address] 37461 THYROID PROFILEon 01-11-2024 Free T4 [Mass/Vol] 0.81 ng/dL Normal 0.61-1.60 [facility] Comment on above: Performed By: #### C BCA, CMP, , THYR #### [facility] ([id number]) [address] [place] [address] 74992 TSH 0.64 uIU/mL Normal 0.49-4.67 [facility] Comment on above: Performed By: #### C BCA, CMP, , THYR #### [facility] ([id number]) [address] [place] [address] 89040 BASIC METABOLIC PANLon 01-09 Anion gap [Moles/Vol] 7 mmol/L Normal 5-15 [facility] Comment on above: Performed By: #### B MP, LIVR, CBCA #### [facility] ([id number]) [address] [place] [address] 57268 Calcium [Mass/Vol] 8.3 mg/dL Low 8.5-10.5 [facility] Comment on above: Performed By: #### B MP, LIVR, CBCA #### [facility] ([id number]) [address] [place] [address] 81358 Chloride [Moles/Vol] 106 mmol/L Normal 98-109 [facility] Comment on above: Performed By: #### B MP, LIVR, CBCA #### [facility] ([id number]) [address] [place] [address] 61070 CO2 [Moles/Vol] 22 mmol/L Normal 22-32 [facility] Comment on above: Performed By: #### B ANJUM LIVNaima CBCA #### [facility] ([id number]) [address] [place] [address] 87443 Creatinine [Mass/Vol] 0.90 mg/dL Normal 0.40-1.00 [facility] Comment on above: Result Comment: METH OD TRACEABLE TO IDMS STANDARD Performed By: #### B DIPTI VALERO CBCA #### [facility] ([id number]) [address] [place] [address] 65306 GFR/1.73 sq M.predicted among non-blacks MDRD (S/P/Bld) [Vol rate/Area] 65 mL/min/{1.73_m2} Normal >59 [facility] Comment on above: Result Comment: Reported eGFR is based on the CKD-EPI 2020 equation that does not use a race coefficient. Performed By: #### B DIPTI VALERO CBCA #### [facility] ([id number]) [address] [place] [address] 29562 Glucose [Mass/Vol] 100 mg/dL High 65-99 [facility] Comment on above: Performed By: #### B ANJUM LIVNaima CBCRonen #### [facility] ([id number]) [address] [place] [address] 39573 Potassium [Moles/Vol] 4.9 mmol/L Normal 3.5-5.0 [facility] Comment on above: Result Comment: SPEC IMEN HEMOLYZED, RESULTS INCREASED Performed By: #### B ANJUM LIVNaima CBCA #### [facility] ([id number]) [address] [place] [address] 19415 Sodium [Moles/Vol] 135 mmol/L Normal 134-146 [facility] Comment on above: Performed By: #### B MP, LIVR, CBCA #### [facility] ([id number]) [address] [place] [address] 65763 Urea nitrogen [Mass/Vol] 19 mg/dL Normal 5-27 [facility] Comment on above: Performed By: #### B MP, LIVR, CBCA #### [facility] ([id number]) [address] [place] [address] 00365 CBC AND AUTO DIFFon 01-10-20 24 ABSOLUTE BASOPHIL 0.0 X10E9/L Normal 0.0-0.2 [facility] Comment on above: Performed By: #### B MP, LIVR, CBCA #### [facility] ([id number]) [address] [place] [address] 33444 ABSOLUTE NEUTROPHIL 5.2 X10E9/L Normal 1.5-6.6 [facility] Comment on above: Performed By: #### B MP, LIVR, CBCA #### [facility] ([id number]) [address] [place] [address] 29750 Basophils/100 WBC (Bld) 0.2 % Normal [facility] Comment on above: Performed By: #### B MP, LIVR, CBCA #### [facility] ([id number]) [address] [place] [address] 76695 Eosinophils (Bld) [#/Vol] 0.0 10*3/uL Normal 0.0-0.4 [facility] Comment on above: Performed By: #### B MP, LIVR, CBCA #### [facility] ([id number]) [address] [place] [address] 81852 Eosinophils/100 WBC (Bld) 0.2 % Normal [facility] Comment on above: Performed By: #### B MP, LIVR, CBCA #### [facility] ([id number]) [address] [place] [address] 46015 Erythrocyte distribution width (RBC) [Ratio] 13.2 % Normal 11.5-15.0 [facility] Comment on above: Performed By: #### B MP, LIVR, CBCA #### [facility] ([id number]) [address] [place] [address] 91184 Hematocrit (Bld) [Volume fraction] 36.7 % Normal 35-47 [facility] Comment on above: Performed By: #### B MP, LIVR, CBCA #### [facility] ([id number]) [address] [place] [address] 60863 Hemoglobin (Bld) [Mass/Vol] 12.5 g/dL Normal 11.7-15.5 [facility] Comment on above: Performed By: #### B MP, LIVR, CBCA #### [facility] ([id number]) [address] [place] [address] 43687 Lymphocytes (Bld) [#/Vol] 0.7 10*3/uL Low 1.0-3.5 [facility] Comment on above: Performed By: #### B MP, LIVR, CBCA #### [facility] ([id number]) [address] [place] [address] 06605 Lymphocytes/100 WBC (Bld) 9.9 % Normal [facility] Comment on above: Performed By: #### B MP, LIVR, CBCA #### [facility] ([id number]) [address] [place] [address] 64215 MCH (RBC) [Entitic mass] 31.4 pg Normal 27-34 [facility] Comment on above: Performed By: #### B MP, LIVR, CBCA #### [facility] ([id number]) [address] [place] [address], [place] [address] MCHC (RBC) [Mass/Vol] 34.0 g/dL Normal 32-36 [facility] Comment on above: Performed By: #### B MP, LIVR, CBCA #### [facility] ([id number]) [address] [place] [address] 22109 MCV (RBC) [Entitic vol] 92 fL Normal 80-100 [facility] Comment on above: Performed By: #### B MP, LIVR, CBCA #### [facility] ([id number]) [address] [place] [address] 35106 Monocytes (Bld) [#/Vol] 1.0 10*3/uL High 0-0.9 [facility] Comment on above: Performed By: #### B MP, LIVR, CBCA #### [facility] ([id number]) [address] [place] [address] 87963 Monocytes/100 WBC (Bld) 14.7 % Normal [facility] Comment on above: Performed By: #### B MP, LIVR, CBCA #### [facility] ([id number]) [address] [place] [address] 16116 Neutrophils/100 WBC (Bld) 75.0 % Normal [facility] Comment on above: Performed By: #### B MP, LIVR, CBCA #### [facility] ([id number]) [address] [place] [address] 11650 Platelet mean volume (Bld) [Entitic vol] 8.1 fL Normal 7-12 [facility] Comment on above: Performed By: #### B MP, LIVR, CBCA #### [facility] ([id number]) [address] [place] [address] 91751 Platelets (Bld) [#/Vol] 173 10*3/uL Normal 150-450 [facility] Comment on above: Performed By: #### B MP, LIVR, CBCA #### [facility] ([id number]) [address] [place] [address] 08000 RBC COUNT 3.97 X10E12/L Normal 3.80-5.20 [facility] Comment on above: Performed By: #### B MP, LIVR, CBCA #### [facility] ([id number]) [address] [place] [address] 10535 WBC (Bld) [#/Vol] 6.9 10*3/uL Normal 4.0-11.0 [facility] Comment on above: Performed By: #### B MP, LIVR, CBCA #### [facility] ([id number]) [address] [place] [address] 67015 LIVER PANELon 01-10-2024 Albumin [Mass/Vol] 3.9 g/dL Normal 3.2-5.3 [facility] Comment on above: Performed By: #### B MP, LIVR, CBCA #### [facility] ([id number]) [address] [place] [address] 21349 ALP [Catalytic activity/Vol] 47 U/L Normal 39-130 [facility] Comment on above: Performed By: #### B MP, LIVR, CBCA #### [facility] ([id number]) [address] [place] [address] 48854 ALT [Catalytic activity/Vol] 23 U/L Normal 0-31 [facility] Comment on above: Result Comment: SPEC IMEN HEMOLYZED, RESULTS INCREASED Performed By: #### B MP, LIVR, CBCA #### [facility] ([id number]) [address] [place] [address] 88046 AST [Catalytic activity/Vol] 44 U/L High 0-41 [facility] Comment on above: Result Comment: SPEC IMEN HEMOLYZED, RESULTS INCREASED Performed By: #### B MP, LIVR, CBCA #### [facility] ([id number]) [address] [place] [address] 23065 Bilirubin [Mass/Vol] 1.3 mg/dL High 0.3-1.2 [facility] Comment on above: Result Comment: RESU LTS QUESTIONABLE DUE TO HEMOLYSIS Performed By: #### B MP, LIVR, CBCA #### [facility] ([id number]) [address] [place] [address] 45018 Bilirubin.direct [Mass/Vol] 0.4 mg/dL Normal 0.0-0.4 [facility] Comment on above: Performed By: #### B MP, LIVR, CBCA #### [facility] ([id number]) [address] [place] [address] 95275 Protein [Mass/Vol] 7.0 g/dL Normal 6.0-8.0 [facility] Comment on above: Result Comment: SPEC IMEN HEMOLYZED, RESULTS INCREASED Performed By: #### B MP, LIVR, CBCA #### [facility] ([id number]) [address] [place] [address] 69504 XR CHEST 1 VWon 01-10-2024 SARS-CoV-2 (COVID-19) RNA NATIVIDAD+probe Ql (Unsp spec) XR CHEST 1 VW Clinical history: Covid positive, cough. Comparisons: 02/09/2012, 03/28/2021. Findings: AP portable upright chest radiograph obtained 8:00 PM. Heart size and pulmonary vasculature. Within normal limits. Lungs appear clear. No pleural effusion nor pneumothorax. Deformity right posterolateral lower rib again seen. No pleural effusion nor pneumothorax. IMPRESSION: No evidence for acute cardiopulmonary disease. Finalized by Marcelo Lockett MD on 01/10/2024 8:08 PM Normal [facility] XR Lumbar spine 4 [facility] Result: June 05, 2023 x-rays AP lateral and lateral flexion-extension views of the lumbar spine demonstrate severe scoliosis apex to the right at the thoracolumbar junction of nearly 90 degrees curvature in the coronal plane. There are no definitive fractures identified. Impression: Severe scoliosis Corwin Lui D.O. [facility] XR Lumbar spine 4 ViewsOrder ed By: Denisha L[facility]06-2023 [facility] XR Lumbar spine 4 [facility] Study observation (narrative) [facility] SCREENING MAMMOGRAM W/JORDAN, BILATERAL*on 04-10-2021 SCREENING MAMMOGRAM [...] VERY IMPORTANT TO YOUR HEALTH. THE CURRENT [employer] GUIDELINES RECOMMENDS ANNUAL MAMMOGRAPHY BEGINNING AT AGE 40 THIS FACILITY USES A REMINDER SYSTEM TO ENSURE ALL PATIENTS RECEIVE REMINDER NOTIFICATIONS AT THE APPROPRIATE TIME BASED ON THE RECOMMENDATIONS OF THIS EXAM. Report reported and signed by Filiberto Love on 04/10/2021 1211 Normal [facility] Case Reviewer Vital Signs Date Time Vital Sign Value Performing Clinician Farhad rodriguez 02-03-2024 09:06-0400 Body height 153.7 cm Lisandra Jimenez MD Work Phone: [facility] 02-03-2024 09:06-0400 Body mass index (BMI) [Ratio] 21.32 kg/m2 Lisandra Jimenez MD Work Phone: [facility] 02-03-2024 09:06-0400 Body weight 50.35 kg Lisandra Jimenez MD Work Phone: [facility] 02-03-2024 09:06-0400 Heart rate 83 /min Lisandra Jimenez MD Work Phone: [facility] 02-03-2024 09:06-0400 SaO2% (BldA) [Mass fraction] 94 % Lisandra Jimenez MD Work Phone: [facility] 06-10-2023 10:05-0500 Body height 154.9 cm Lisandra Jimenez MD Work Phone: [facility] 06-10-2023 10:05-0500 Body mass index (BMI) [Ratio] 20.6 kg/m2 Lisandra Jimenez MD Work Phone: [facility] 06-10-2023 10:05-0500 Body weight 49.44 kg Lisandra Jimenez MD Work Phone: [facility] 06-10-2023 10:05-0500 Diastolic blood pressure 68 mm[Hg] Lisandra Jimenez MD Work Phone: [facility] 06-10-2023 10:05-0500 Heart rate 76 /min Lisandra Jimenez MD Work Phone: [facility] 06-10-2023 10:05-0500 Respiratory rate 16 /min Lisandra Jimenez MD Work Phone: [facility] 06-10-2023 10:05-0500 Systolic blood pressure 130 mm[Hg] Lisandra Jimenez MD Work Phone: [facility] Healthcare Encounters Encounter Date Encounter Type Care Provider Facility Start: 03-03-2024 End: 03-03-2024 Refill Lisandra Jimenez MD Work Phone: [facility] Comment on above: Gastroesophageal ref lux disease without esophagitis; Mixed stress and urge urinary incontinence; Tachycardia; Age-related osteoporosis without current pathological fracture ([facility]) Start: 02-03-2024 End: 02-03-2024 Bamboo flowsheet Lisandra Jimenez MD Work Phone: [facility] Start: 02-03-2024 End: 02-03-2024 Bamboo flowsheet Lisandra Jimenez MD Work Phone: [facility] Start: 02-03-2024 End: 02-03-2024 Office outpatient visit 15 minutes Lisandra Jimenez MD Work Phone: [facility] Comment on above: COVID-19 (Primary Dx ); Degeneration of intervertebral disc of lumbar region, unspecified whether pain present; Encounter for immunization Start: 02-03-2024 End: 02-03-2024 ambulatory LISANDRA JIMENEZ Not Available Start: 01-10-2024 End: 01-13-2024 Emergency department patient visit SERGIO JARVIS [facility] Start: 01-10-2024 End: 01-12-2024 ambulatory LISANDRA JIMENEZ [facility] Start: 01-10-2024 End: 01-10-2024 ambulatory JEY CHAPPELLHMAN Not Available Start: 01-07-2024 End: 01-07-2024 ambulatory LISANDRA JIMENEZ Not Available Start: 12-12-2023 End: 12-12-2023 ambulatory YANETH J [...] Available Start: 11-11-2023 End: 11-11-2023 ambulatory BELÉN BOYEC Not Available Start: 11-08-2023 End: 11-08-2023 ambulatory [...] 09-30-2023 End: 09-30-2023 ambulatory Mere Woodard MD Facility:[facility] Start: 09-27-2023 End: 09-27-2023 ambulatory BELÉN BOYCE Not Available Start: 09-24-2023 End: 09-24-2023 ambulatory BELÉN BOYCE Not Available Start: 09-20-2023 End: 09-20-2023 ambulatory YANETH J LEIA Not Available Start: 09-17-2023 End: 09-17-2023 ambulatory YANETH J LEIA Not Available Start: 09-16-2023 End: 09-16-2023 ambulatory Mere [place] MD Facility:[facility] Start: 09-12-2023 End: 09-12-2023 ambulatory YANETH J [...] 08-19-2023 End: 08-19-2023 ambulatory Mere [place] MD Facility:[facility] Start: 08-02-2023 Telephone encounter Maya Villalobos RN [facility] Comment on above: Records, transfer to [facility] Start: 07-30-2023 End: 07-30-2023 ambulatory LISANDRA Kwong TONY Not Available Start: 07-17-2023 End: 07-17-2023 ambulatory FLORENCE B APLING Not Available Start: 06-26-2023 End: 06-26-2023 ambulatory FLORENCE B APLING Not Available Start: 06-11-2023 Refill Lisandra Price Work Phone: [facility] Start: 06-10-2023 Bamboo flowsheet Lisandra Jimenez MD Work Phone: [facility] Start: 06-10-2023 Bamboo flowsheet Lisandra Jimenez MD Work Phone: [facility] Start: 06-10-2023 End: 06-10-2023 Patient encounter procedure Lisandra Jimenez MD Work Phone: [facility] Comment on above: Routine general medi vicente examination at a health care facility (Primary Dx); Gastroesophageal reflux disease without esophagitis; Arthritis, lumbar spine; Primary osteoarthritis of left hip; Postoperative anemia due to acute blood loss; Age-related osteoporosis without current pathological fracture ([facility]) Start: 06-10-2023 End: 06-10-2023 Patient encounter status Lisandra Jimenez MD Work Phone: [facility] Work Phone: Start: 06-10-2023 End: 06-10-2023 ambulatory LISANDRA JIMENEZ Not Available Start: 06-06-2023 Refill Loli Yang Work Phone: [facility] Comment on above: Postnasal discharge Start: 06-05-2023 End: 06-05-2023 ambulatory FLORENCE B APLING Not Available Start: 06-05-2023 End: 06-05-2023 ambulatory FLORENCE B APLING Not Available Start: 06-05-2023 End: 06-05-2023 Office outpatient visit 15 minutes Florence Duenas Apling [employer] Work Phone: [facility] Comment on above: S/P total left [...] lumbosac ral minimum 4 views Florence Robins [employer]BACK SPECIALIST Work Phone: Plan of Treatment Date Care Activity Detail Author Start: 06-10-2024 Medicare Annual Wellness (AWV) Medicare Annual Wellness (AWV) [facility] Start: 02-03-2024 End: 02-03-2024 Patient encounter procedure 02/03/2024 9:00 AM EDT Office Visit [facility] [address] [place] [phone] Lisandra Jimenez MD [address] [facility] [place] [address] Arrived [facility] Comment on above: Arrived Start: 01-02-2024 Adult BMI Screening Adult BMI Screen ing [facility] Start: 12-29-2023 Influenza vaccination P [facility] Start: 12-29-2023 Tobacco Screening Tobacco Screening [facility] Start: 12-09-2023 End: 12-09-2023 Patient encounter procedure 12/09/2023 9:40 AM EDT Office Visit [facility] [address] [place] [phone] Lisandra Jimenez MD [address] [facility] [place] [address] [facility] Start: 08-01-2023 Medicare Annual Wellness (AWV) Medicare Annual Wellness (AWV) [facility] Start: 07-30-2023 End: 07-30-2023 Patient encounter procedure 07/30/2023 9:00 AM EDT Office Visit [facility] [address] [place] [address] [phone] Lisandra Jimenez MD [address] [facility] [place] [address] [facility] Start: 07-01-2023 End: 07-01-2023 Patient encounter procedure 07/01/2023 9:00 AM EST Office Visit [facility] [address] [place] [address] Florence Robins CHARGEBACK SPECIALIST [address] [place] [address] [facility] Start: 06-26-2023 End: 06-26-2023 Patient encounter procedure 06/26/2023 10:00 AM EST Office Visit [facility] [address] [place] [address] Florence Robins CHARGEBACK SPECIALIST [address] [place] [address] [facility] Start: 06-10-2023 End: 06-10-2023 Patient encounter procedure [facility] Comment on above: Arrived Start: 02-10-2023 DTaP,Tdap and Td Vaccines (3 - Td or Tdap) DTaP,Tdap and Td Vaccines (3 - Td or Tdap) [facility] Start: 12-28-2022 COVID-19 Vaccine ( season) COVID-19 Vaccine ( season) [facility] Start: 2010 Fall Risk Screening Fall Risk Screen ing [facility] Start: 1957 Depression Screening Depression Scre ening [facility] Start: 1945 Medicare Annual Wellness Visit Medicare Annual Wellness Visit [facility] Immunizations Immunization Date Immunization Notes Care Provider Fa cili 02-03-2024 influenza, high dose seasonal, preservative-free Lisandra Jimenez MD Work Phone: [facility] 04-08-2023 RSV, recombinant, protein subunit RSVpreF, adjuvant reconstitu, 120mcg/0.5mL, PF (Arexvy) Lisandra Jimenez MD Work Phone: [facility] 01-28-2023 Influenza, High-dose Seasonal, Quadrivalent, Preservative Free Loli Rivera [employer]BACK SPECIALIST Work Phone: [facility] Work Phone: 01-28-2023 influenza virus vacc ine, unspecified formulation Lisandra Jimenez MD Work Phone: [facility] 02-06-2022 Influenza, High-dose Seasonal, Quadrivalent, Preservative Free Loli Rivera CHARGEBACK SPECIALIST Work Phone: [facility] 02-06-2022 Moderna Bivalent Price ster Vaccination Loli Rivera CHARGEBACK SPECIALIST Work Phone: [facility] 02-06-2022 Moderna SARS-CoV-2 50mcg/0.5mL Booster Loli Rivera CHARGEBACK SPECIALIST Work Phone: [facility] 02-06-2022 influenza virus vacc ine, unspecified formulation Maya Villlaobos RN [facility] 01-26-2021 Influenza, High-dose Seasonal, Quadrivalent, Preservative Free Loli Rivera CHARGEBACK SPECIALIST Work Phone: [facility] 01-27-2020 Influenza, High-dose Seasonal, Quadrivalent, Preservative Free Loli Rivera CHARGEBACK SPECIALIST Work Phone: [facility] 03-12-2019 zoster vaccine recombinant Loli Rivera CHARGEBACK SPECIALIST Work Phone: [facility] 01-26-2019 zoster vaccine, live Loli W olf CHARGEBACK SPECIALIST Work Phone: [facility] 01-22-2019 influenza, high dose seasonal, preservative-free Loli Rivera CHARGEBACK SPECIALIST Work Phone: [facility] 01-22-2019 Influenza, High-dose Seasonal, Quadrivalent, Preservative Free Loli Rivera CHARGEBACK SPECIALIST Work Phone: [facility] 01-22-2019 zoster vaccine recombinant Loli Rivera CHARGEBACK SPECIALIST Work Phone: [facility] 01-20-2018 influenza, high dose seasonal, preservative-free Loli Rivera CHARGEBACK SPECIALIST Work Phone: [facility] 01-20-2018 influenza, injectabl e, quadrivalent, preservative free Loli Rivera CHARGEBACK SPECIALIST Work Phone: [facility] 01-18-2017 influenza, high dose seasonal, preservative-free Loli Rivera CHARGEBACK SPECIALIST Work Phone: [facility] 01-18-2017 Influenza, High-dose Seasonal, Quadrivalent, Preservative Free Loli Rivera CHARGEBACK SPECIALIST Work Phone: [facility] 01-17-2016 influenza, high dose seasonal, preservative-free Loli Rivera CHARGEBACK SPECIALIST Work Phone: [facility] 01-17-2016 pneumococcal conjuga te vaccine, 13 valent Loli Rivera CHAR[employer]BACK SPECIALIST Work Phone: [facility] 01-12-2015 influenza, high dose seasonal, preservative-free Loli Rivera CHARGEBACK SPECIALIST Work Phone: [facility] 01-11-2014 influenza, high dose seasonal, preservative-free Loli Rivera CHARGEBACK SPECIALIST Work Phone: [facility] 02-10-2013 tetanus and diphther ia toxoids, adsorbed, preservative free, for adult use (5 Lf of tetanus toxoid and 2 Lf of diphtheria toxoid) Loli Rivera CHARGEBACK SPECIALIST Work Phone: [facility] 02-10-2013 tetanus toxoid, redu jessica diphtheria toxoid, and acellular pertussis vaccine, adsorbed Lolibrady Rivera CHARGEBACK SPECIALIST Work Phone: [facility] 02-06-2013 seasonal influenza, intradermal, preservative free Loli Rivera CHARGEBACK SPECIALIST Work Phone: [facility] 12-23-2012 zoster vaccine, live Loli W ericf CHARGEBACK SPECIALIST Work Phone: [facility] 12-12-2012 pneumococcal polysaccharide vaccine, 23 valent Loli Rivera CHARGEBACK SPECIALIST Work Phone: [facility] 02-06-2012 influenza, seasonal, injectable, preservative free Loli Rivera CHARGEBACK SPECIALIST Work Phone: [facility] 04-17-2004 influenza, seasonal, injectable Loli Rivera CHARGEBACK SPECIALIST Work Phone: [facility] 04-27-2003 influenza, seasonal, injectable Loli Rivera CHARGEBACK SPECIALIST Work Phone: [facility] 04-27-2002 influenza, seasonal, injectable Loli Rivera CHARGEBACK SPECIALIST Work Phone: [facility] 04-01-2001 influenza, seasonal, injectable Loli Rivera CHARGEBACK SPECIALIST Work Phone: [facility] 03-08-1999 pneumococcal polysaccharide vaccine, 23 valent Loli Rivera CHARGEBACK SPECIALIST Work Phone: [facility] Payers Date Payer Category Payer Private Health Insurance 2021 Medicaid [employer] MEDICARE A DVANTAGE [id number] 2021 Medicare [id number] 2021 Medicare [id number] 1945 Unknown [id number] 2.16.840.1.656258.3.579.2. 196 1945 Unknown [id number] 2.16.840.1.721142.3.579.2. 196 1945 Unknown [id number] 2.16.840.1.599228.3.579.2. 196 1945 Unknown [id number] 2.16.840.1.785694.3.579.2. 1286 1945 Unknown [id number] 2.16.840.1.647867.3.579.2. 1286 1945 Unknown [id number] 2.16.840.1.243709.3.579.2. 1259 1945 Unknown [id number] 2.16.840.1.869959.3.579.2. 125 1945 Unknown [id number] 2.16.840.1.729906.3.579.2. 1258 1945 Unknown [id number] 2.16.840.1.929060.3.579.2. 1258 1945 Unknown [id number] 2.16.840.1.201986.3.579.2. 1258 1945 Unknown [id number] 2.16.840.1.120700.3.579.2. 1258 1945 Unknown [id number] 2.16.840.1.732504.3.579.2. 1258 1945 Unknown [id number] 2.16.840.1.436053.3.579.2. 1258 1945 Unknown [id number] 2.16.840.1.816287.3.579.2. 1258 1945 Unknown [id number] 2.16.840.1.023833.3.579.2. 1258 1945 Unknown [id number] 2.16.840.1.962339.3.579.2. 1258 1945 Unknown [id number] 2.16.840.1.431361.3.579.2. 1258 1945 Unknown [id number] 2.16.840.1.210853.3.579.2. 1258 1945 Unknown [id number] 2.16.840.1.330745.3.579.2. 1258 1945 Unknown [id number] 2.16.840.1.533762.3.579.2. 1258 1945 Unknown [id number] 2.16.840.1.145501.3.579.2. 1258 1945 Unknown [id number] 2.16.840.1.626601.3.579.2. 1258 1945 Unknown [id number] 2.16.840.1.716045.3.579.2. 1259 1945 Unknown [id number] 2.16.840.1.620327.3.579.2. 1258 1945 Unknown [id number] 2.16.840.1.703257.3.579.2. 1258 1945 Unknown [id number] 2.16.840.1.640380.3.579.2. 1258 1945 Unknown [id number] 2.16.840.1.090555.3.579.2. 1258 1945 Unknown [id number] 2.16.840.1.205490.3.579.2. 1258 1945 Unknown [id number] 2.16.840.1.423955.3.579.2. 1258 1945 Unknown [id number] 2.16.840.1.635921.3.579.2. 1258 1945 Unknown [id number] 2.16.840.1.264022.3.579.2. 1258 1945 Unknown [id number] 2.16.840.1.976438.3.579.2. 1258 1945 Unknown [id number] 2.16.840.1.607745.3.579.2. 1258 1945 Unknown [id number] 2.16.840.1.198200.3.579.2. 1258 1945 Unknown [id number] 2.16.840.1.446754.3.579.2. 1258 1945 Unknown [id number] 2.16.840.1.439482.3.579.2. 1258 1945 Unknown [id number] 2.16.840.1.857687.3.579.2. 1258 1945 Unknown [id number] 2.16.840.1.270812.3.579.2. 1258 1945 Unknown [id number] 2.16.840.1.885755.3.579.2. 9 1945 Unknown [id number] 2.16.840.1.708910.3.579.2. 9 1945 Unknown [id number] 2.16.840.1.169269.3.579.2. 1258 1945 Unknown [id number] 2.16.840.1.685154.3.579.2. 1258 1945 Unknown [id number] 2.16.840.1.998802.3.579.2. 1258 1945 Unknown [id number] 2.16.840.1.603772.3.579.2. 9 1945 Unknown [id number] 2.16.840.1.279508.3.579.2. 1259 Social History Date Type Detail Facility Start: 05-24-2022 End: 10-10-2022 Tobacco smoking status [facility] Never smoked tobacco [facility] Start: 05-24-2022 End: 10-10-2022 Tobacco use and exposure Smokeless tobacco non-user [facility] Start: 06-05-2023 End: 02-03-2024 Alcohol intake Lifetime non-drinker (finding) [facility] Start: 12-10-2022 End: 06-10-2023 History of Social function [facility] Start: 12-10-2022 End: 06-10-2023 Humiliation, Afraid, Rape, and Kick questionnaire [HARK] [facility] Within the last year , have you been afraid of your partner or ex-partner? No [facility] Attends [employer] Not on file [facility] Do you belong to any clubs or organizations such as worship groups, unions, fraternal or athletic groups, or school groups? Yes [facility] Are you now , , , , never or living with a partner? Never [facility] How often to you hav e a drink containing alcohol? Never [facility] (I/We) worried wheth er (my/our) food would run out before (I/we) got money to buy more. Never true [facility] Start: 1945 Sex Assigned At Not on file [facility] Start: 07-11-2022 Gender identity Identifies as female gender (finding) [facility] Start: 12-28-2022 Alcohol intake Current [facility]-drinker of [facility] (finding) [facility] Procedure Code Equipment Code Equipment Origin al Text Equipment Identifier Dates Lens Iol Ultrase rt 11.5d - [id number] - [id number] Start: 04-03-2018 Lens Iol Ultrase rt 13.0d - [id number] - [id number] Start: 08-28-2018 Head Fem 32mm 0m m Vrsy Cocr Hip Rpl [id number] - [id number] - [id number], [id number] FDA Start: 12-26-2022 Screw Bn 15mm 6. [address]mm [address] Hip Actb Trlg Strl Rpl [id number] - [id number] - [id number] Start: 12-26-2022 Goals Date Patient Goal Desired Activity /State Personal health goal Comment on above: Formatting of this n ote might be different from the original. Evaluation of progress towards goal: Home with support from friend (staying with pt) and [facility] Clinical Notes 06-05-2023 to 03-03-2024 Telephone Encounter - Lisandra Jimenez MD - 03/03/2024 11:12 AM ESTTelephone Encounter - Lisandra Jimenez MD - 03/03/2024 11:12 AM Arabella Nolasco MA - 02/03/2024 9:00 AM EDT Note Date & Type Note Facility 03-03-2024 Telephone encounter Note Approvals with refills [facility] 03-03-2024 Miscellaneous Notes Approvals with refills documented in this encounter [facility] 02-03-2024 History of Present illness Narrative Images from the original note were not included. Marck Maria is a 78 y.o. female presents with chief complaint of Follow-up (Patient here for 6 month follow up. She was in the ER in December and was dx with Paula. She is doing better now. Would like to get her flu shot today. No refills needed today. No issues with her medications at this time. ) HPI: HPI SUBJECTIVE: MEDICATIONS: Current Outpatient Medications Medication Instructions Acetaminophen (TYLENOL 8 HOUR ARTHRITIS PAIN PO) Tylenol Arthritis Pain alendronate (Fosamax) 70 MG tablet TAKE 1 TABLET ONCE A WEEK ON EMPTY STOMACH WITH FULL GLASS OF WATER AND STAY UPRIGHT FOR 30 MINS azelastine (Optivar) 0.05 % ophthalmic solution INSTILL 1 DROP INTO BOTH EYES TWICE A DAY Ophthalmic for 90 Days benzonatate (TESSALON) 100 mg, Oral, 3 times daily PRN docusate sodium (COLACE) 100 mg, Oral, 2 times daily famotidine (PEPCID) 20 mg, Oral, Daily ferrous sulfate 325 (65 Fe) MG EC tablet TAKE 1 TABLET (325 MG) BY MOUTH IN THE MORNING. TAKE WITH MEALS. DO NOT CRUSH, CHEW, OR SPLIT.. fluticasone (Flonase) 50 MCG/ACT nasal spray USE 2 SPRAYS IN EACH NOSTRIL ONCE A DAY metoprolol tartrate (LOPRESSOR) 25 mg, Oral, 2 times daily tolterodine LA (DETROL LA) 2 mg, Oral, Daily, Do not crush, chew, or split. I have reviewed and reconciled the history and medication list with the patient today. REVIEW OF SYMPTOMS: Review of Systems OBJECTIVE: Visit Vitals Pulse 83 Ht 5' 0.5 Wt 111 lb SpO2 94% BMI 21.32 kg/m Smoking Status Never BSA 1.47 m Physical Exam ASSESSMENT AND PLAN: Assessment/Plan Marck Maria is a 78 y.o. female presents with chief complaint of Follow-up (Patient here for 6 month follow up. She was in the ER in December and was dx with Covid. She is doing better now. Would like to get her flu shot today. No refills needed today. No issues with her medications at this time. ) HPI: HPI History of Present Illness The patient is a 78-year-old female who presents for evaluation of multiple medical concerns. She has successfully recovered from COVID-19. Her back condition has improved significantly compared to previous levels. She attended several physical therapy sessions in November 2022 but has not been attending sessions recently. She is uncertain if the improvement is due to physical therapy. She did not receive the influenza vaccine during her last visit. She believes she may have received the RSV vaccine at a pharmacy but is unsure. She has made an effort to reduce her sugar intake, particularly in her coffee, which she found challenging. She also consumes iced coffee from [employer]. SUBJECTIVE: MEDICATIONS: Current Outpatient Medications Medication Instructions Acetaminophen (TYLENOL 8 HOUR ARTHRITIS PAIN PO) Tylenol Arthritis Pain alendronate (Fosamax) 70 MG tablet TAKE 1 TABLET ONCE A WEEK ON EMPTY STOMACH WITH FULL GLASS OF WATER AND STAY UPRIGHT FOR 30 MINS azelastine (Optivar) 0.05 % ophthalmic solution INSTILL 1 DROP INTO BOTH EYES TWICE A DAY Ophthalmic for 90 Days benzonatate (TESSALON) 100 mg, Oral, 3 times daily PRN docusate sodium (COLACE) 100 mg, Oral, 2 times daily famotidine (PEPCID) 20 mg, Oral, Daily ferrous sulfate 325 (65 Fe) MG EC tablet TAKE 1 TABLET (325 MG) BY MOUTH IN THE MORNING. TAKE WITH MEALS. DO NOT CRUSH, CHEW, OR SPLIT.. fluticasone (Flonase) 50 MCG/ACT nasal spray USE 2 SPRAYS IN EACH NOSTRIL ONCE A DAY metoprolol tartrate (LOPRESSOR) 25 mg, Oral, 2 times daily tolterodine LA (DETROL LA) 2 mg, Oral, Daily, Do not crush, chew, or split. REVIEW OF SYMPTOMS: Review of Systems Respiratory: Negative. Cardiovascular: Negative. OBJECTIVE: Visit Vitals Pulse 83 Ht 5' 0.5 Wt 111 lb SpO2 94% BMI 21.32 kg/m Smoking Status Never BSA 1.47 m Physical Exam Constitutional: Appearance: Normal appearance. [...] Content: Thought content normal. Judgment: Judgment normal. ASSESSMENT AND PLAN: Assessment/Plan Problem List Items Addressed This Visit Degenerative disc disease, lumbar COVID-19 - Primary Other Visit Diagnoses Encounter for immunization Assessment & Plan 1. COVID-19 Recovery. She reports feeling fully recovered from COVID-19. No further treatment is necessary at this time. 2. Back Pain. She reports that her back pain has improved and is not bothering her as much as before. She has not been attending physical therapy recently, but did attend sessions frequently in November. No new treatment is required at this time. 3. Excessive Sugar Intake. She has been advised to reduce the sugar in her coffee. She has started to cut back on sugar, although it has been difficult. She is encouraged to prepare her own coffee to better control the sugar content. 4. Health Maintenance. The influenza vaccine was administered today. She was advised to get the RSV vaccine at a pharmacy, as it is a good preventative measure. documented in this encounter [facility] 08-02-2023 Miscellaneous Notes Received a phone call from [facility] for patient records to be transferred. documented in this encounter [facility] 08-02-2023 Telephone encounter Note Received a phone call from [facility] for patient records to be transferred. [facility] 06-11-2023 Telephone encounter Note PT Calling to check status of this request, unsure as how to explain the denial of the refill. [facility] 06-11-2023 Miscellaneous Notes PT Calling to check status of this request, unsure as how to explain the denial of the refill. Medication refused due to failing protocol. Requested Prescriptions Pending Prescriptions Disp Refills methylPREDNISolone (Medrol Dospak) 4 MG tablets 21 tablet Sig: Follow schedule on package instructions There is no refill protocol information for this order documented in this encounter [facility] 06-11-2023 Telephone encounter Note Medication refused due to failing protocol. Requested Prescriptions Pending Prescriptions Disp Refills methylPREDNISolone (Medrol Dospak) 4 MG tablets 21 tablet Sig: Follow schedule on package instructions There is no refill protocol information for this order [facility] 06-10-2023 History of Present illness Narrative Marck Maria is a 77 y.o. female presents [...] Recheck in 6months documented in this encounter [facility] 06-05-2023 History of Present illness Narrative Subjective Patient ID: Marck Maria is a 77 y.o. female. LT [...] in 2-3 weeks documented in this encounter [facility] Healthcare Evaluation note Diagnosis Postnasal discharge Other [...] anemia Age-related osteoporosis without current pathological fracture ([facility]) [facility] Diagnosis COVID-19- Primary Degeneration of intervertebral disc of lumbar region, unspecified whether pain present Encounter for immunization [facility] Diagnosis Gastroesophageal reflux disease without esophagitis Esophageal reflux Mixed stress and urge urinary incontinence Mixed incontinence urge and stress (male)(female) Tachycardia Unspecified tachycardia Age-related osteoporosis without current pathological fracture (CMS/HCC) documented in this encounter [facility]ructionsNot on filedocumented [facility] Purpose Family History No Family History Records FoundNo Family History Records FoundNo Family History Records FoundNo Family History Records Found Advance Directives Documents on File Type Date Recorded 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 Living Will 01/17/2023 11:55 AM Durable Power of Supervisor Wool [employer]aring 01/17/2023 11:54 AM Latest Code Status on File Code Status Date Activated Date Inactivated Comments Full Code 12/28/2022 6:14 PM 01/01/2023 3:49 PM Code Status History Code Status Date Activated Date Inactivated Comments Full Code 12/26/2022 10:18 AM 12/27/2022 7:36 PM Additional Source Comments INFORMATION SOURCE (unrecogn ized section and content) DATE CREATED AUTHOR 04/10/2021 [facility] dical Specialist DATE CREATED AUTHOR AUTHOR'S ORGANIZ ATION 10/10/2023 [facility] DATE CREATED AUTHOR AUTHOR'S ORGANIZ ATION 01/13/2024 [facility] DATE CREATED AUTHOR AUTHOR'S ORGANIZ ATION 02/04/2024 [facility] dical Specialists EPIC Reason for Visit (unrecogniz ed section and content) Reason Comments Med Refill Reason Comments Medicare Annual Wellness Visit Subsequen t Reason Onset Date Comments Records, transfer to [facility] 08/02/2023 Reason Comments Follow-up Patient here for 6 m [facility] follow up. She was in the ER in December and was dx with Covid. She is doing better now. Would like to get her flu shot today. No refills needed today. No issues with her medications at this time. Care Teams (unrecognized sec tion and content) Er Manager Relationship Specialty Start Date End Date Benji Cantrell MD [address] [facility] [address] [place] [address] PCP - [employer] 04/29/22 Lisandra Jimenez MD [address] [place] [address] PCP - General Family Medicine 09/10/22 Er Manager Relationship Specialty Start Date End Date Benji Cantrell MD [address] [facility] [address] [place] [address] PCP - [employer] 04/29/22 Lisandra Jimenez MD [address] [place] [address] PCP - General Family Medicine 09/10/22 Er Manager Relationship Specialty Start Date End Date Benji Cantrell MD [address] [place] [address] PCP - [employer] 04/29/22 Lisandra Jimenez MD [address] [facility] [place] [address] PCP - General Family Medicine 09/10/22 Er Manager Relationship Specialty Start Date End Date Benji Cantrell MD [address] [facility] [address] [place] [address] PCP - [employer] 04/29/22 Lisandra Jimenez MD [address] [facility] [place] [address] PCP - General Family Medicine 09/10/22 Er Manager Relationship Specialty Start Date End Date Benji Cantrell MD [address] [facility] [address] [place] [address] PCP - [employer] 04/29/22 Lisandra Jimenez MD [address] [facility] [place] [address] PCP - General Family Medicine 09/10/22 Er Manager Relationship Specialty Start Date End Date Lisandra Jimenez MD [address] [facility] [place] [address] PCP - General Family Medicine 11/12/16 Er Manager Relationship Specialty Start Date End Date Benji Cantrell MD [address] [facility] [address] [place] [address] PCP - Aet 04/29/21 Lisandra Jimenez MD [address] [facility] [place] [address] PCP - General Family Medicine 09/10/22 Er Manager Relationship Specialty Start Date End Date Benji Cantrell MD [address] [facility] [address] [place] [address] PCP - [facility] 04/29/21 Lisandra Jimenez MD [address] [facility] [place] [address] PCP - General [facility] 09/10/22 Er Manager Relationship Specialty Start Date End Date Benji Cantrell MD [address] [facility] [place] [address] PCP [facility] 04/29/21 Lisandra Jimenez MD [address] [facility] [place] [address] PCP - General Family [facility] 09/10/22 FOR RECORDS PERTAINING TO PATIENTS WHO ARE [...] BE BASED ON THE PRIMARY CLINICAL RECORDS. [employer] [facility]. provides no warranty or guarantee of the accuracy or completeness of information in this document.
--- NOTE | 2024-03-23 13:12 | P.CN_ITS ---
Consult Note: HPI Data of Consult Patient: known to practice within the last 3 years Consult date: 03/23/24 Requesting Physician: Mere Woodard MD Primary Care Provider: YOLA AMES Consult Narrative Reason for consult: left low back, hip pain Narrative: 78yof who presents for assessment. Worsening left low back and hip pain. Has previously undergone left SIJ injection, which provided >50% relief >3 months. Continues in a provider directed home exercise program >6 weeks, without benefit. Uses tylenol as needed. Denies adverse med side effects. cc:: CC: Mere Woodard MD Review of Systems ROS Status of ROS 10 or more systems reviewed and unremark able except as noted in history and below [facility] Medical History (Updated 10/10/23 @ 09:33 by Teresa Lynn NP) Low back pain ?M54.50 - Low back pain, unspecified (ICD-10) Surgical History History of hip replacement ?Z96.649 - Presence of unspecified artificial hip joint (ICD-10) Meds Home Medications and Allergies Home Medications ?Medication ?Instructions ?Recorded ?Confirmed ?Type acetaminophen 650 mg 650 mg PO Q12H PRN pain 08/19/23 09/30/23 History tablet,extended release (Tylenol Arthritis Pain) alendronate 70 mg tablet 70 mg PO QWEEK 08/19/23 09/30/23 History celecoxib 200 mg capsule (Celebrex) 200 mg PO BID 08/19/23 09/30/23 History famotidine 20 mg tablet 20 mg PO DAILY 08/19/23 09/30/23 History ferrous sulfate 325 mg (65 mg 325 mg PO DAILY 08/19/23 09/30/23 History iron) tablet (Feosol) metoprolol succinate 25 mg 25 mg PO BID 08/19/23 09/30/23 History tablet,extended release 24 hr tolterodine 2 mg tablet 2 mg PO DAILY 08/19/23 09/30/23 History lidocaine 5 % topical patch 1 patch topical DAILY #30 ea 10/10/23 Rx Allergies Allergy/AdvReac Type Severity Reaction Status Date / Time No Known Drug Allergies Allergy Verified 09/30/23 10:27 Exam Narrative Exam Narrative: Psych-alert and oriented x 3. Attentive and appropriate, constitutionally normal, displays normal mood and affect per situation.? There are no obvious deficits in memory, reasoning, or intellect.? Skin-no obvious rashes, bruising, erythema noted to the patient's area of pain. Extremities- extremities are warm with minimal edema and palpable pulses. Lumbar-no significant tenderness to palpation noted in the lumbar spine and paraspinal musculature.? Pain is elicited with extension, and lateral rotation of the lumbar spine. Range of motion is slightly diminished with these motions due to pain. Sacroiliac - tender to palpation over left PSIS. Positive Leland's on the left. Positive thigh thrust on the left. Coordination remains intact.? Gait remains non-antalgic. Assessment and Plan Assessment and Plan (1) Sacroiliitis: Plan 78yof who presents for assessment. failed conservative measures, as noted. given previous relief and current symptoms, prudent to attempt left sacroiliac joint injection under fluoroscopic guidance. she is in agreement. meds reviewed, no changes. follow up after procedure.
== END 2024-03-23 11:26 | disposition home or self-care (01) ==
LOC: PM 11:25
PROVIDERS: PCP Family Medicine; Visit Provider Anesthesiology
DX: M46.1 Sacroiliitis, not elsewhere classified (principal)
CPT/HCPCS: G0463

== ENCOUNTER 2024-03-30 09:21 | Day surgery (SDC) | payer MEDICARE, SELFPAY ==
[2024-03-30 09:40] VITALS: BP 126/74; PULSE 64; TEMP 36.8; O2SAT 98
--- OUTSIDE RECORDS SUMMARY | 2024-03-30 09:41 | XMS_ITS | CCD ---
Author Organization [facility] Care Team Providers Care Social Insurance Specialist Name Role Phone Benji Cantrell MD Unavailable Tony DE LA CRUZ, Lisandra Kwong Primary Care Provider Tony DE LA CRUZ, Lisandra Kwong Primary Care Provider LISANDRA JIMENEZ Primary Care Unavailable SERGIO JARVIS Attending Unavailable CHRISKELSEY Admitting Unavailable MATHEUSSERGIO Attending Unavailable MATHEUSSERGIO Referring Unavailable TONY, LISANDRA Kwong Primary Care Unavailable TONY, LISANDRA Kwong Attending Unavailable APLINGFLORENCE Attending Unavailable APLING, FLORENCE Duenas Referring Unavailable TONY, LISANDRA wKong Attending Unavailable APLINGFLORENCE Attending Unavailable APLINGFLORENCE Attending Unavailable TONY, LISANDRA Varghese Attending Unavailable LEIAYANETH Attending Unavailable TONY, LISANDRA [...] Referring Unavailable BOYCE, BELÉN Attending Unavailable TONY, LISANRDA F Referring Unavailable BOYCE, BELÉN Attending Unavailable APLINGFLORENCE Referring Unavailable BOYCE, BELÉN Attending Unavailable TONY, [...] TONY, LISANDRA F Referring Unavailable TONY, LISANDRA F Attending Unavailable JEY GOMEZ Attending Unavailable TONY, LISANDRA F Attending Unavailable Benji Cantrell MD Unavailable [phone] Giedraitis , Andri Vjosiah Attending Unavailable Giedraitis , Andrius Vytautleonardo Attending Unavailable Giedraitis , Andrius Vytautleonardo Attending Unavailable Giedraitis , Andrius Vytsol Attending Unavailable Allergies Allergy Classification Reported Allergen(s) Allergy Type Date of Onset Reaction(s) Facility (12 sources) diphenhydrAMINE Drug Allergy 03-25-20 18 Unknown [facility] (12 sources) Sulfonamides (Antibiotic) Drug Allergy 09-02-19 Other (See Comments) [facility] (1 source) diphenhydrAMINE; Translations: [DIPHENHYDRAMINE HCL] Drug Allergy 03-25-20 [facility] (1 source) Sulfonamides (Antibiotic); Translations: [...] 24 ABSOLUTE BASOPHIL 0.0 X10E9/L Normal 0.0-0.2 [facility] Comment on above: Performed By: #### C KEVIN [facility], 34153-1 #### [facility] ([id number]) [address] [place] [address] 80546 ABSOLUTE NEUTROPHIL 5.0 X10E9/L Normal 1.5-6.6 [facility] Comment on above: Performed By: #### Deanna BROWN [facility], #### [facility] ([id number]) [address] [place] [address] 51575 Basophils/100 WBC (Bld) 0.2 % Normal [facility] Comment on above: Performed By: #### Deanna BROWN [facility], #### [facility] ([id number]) [address] [place] [address] 24210 Eosinophils (Bld) [#/Vol] 0.1 10*3/uL Normal 0.0-0.4 [facility] Comment on above: Performed By: #### Deanna BROWN [facility], #### [facility] ([id number]) [address] [place] [address] 05087 Eosinophils/100 WBC (Bld) 1.2 % Normal [facility] Comment on above: Performed By: #### Deanna BROWN [facility], #### [facility] ([id number]) [address] [place] [address] 00086 Erythrocyte distribution width (RBC) [Ratio] 13.4 % Normal 11.5-15.0 [facility] Comment on above: Performed By: #### Deanna BROWN CMP, #### [facility] ([id number]) [address] [place] [address] 48338 Hematocrit (Bld) [Volume fraction] 39.6 % Normal 35-47 [facility] Comment on above: Performed By: #### C REDD BROWN, #### [facility] ([id number]) [address] [place] [address] 33938 Hemoglobin (Bld) [Mass/Vol] 13.2 g/dL Normal 11.7-15.5 [facility] Comment on above: Performed By: #### C REDD BRWON, #### [facility] ([id number]) [address] [place] [address] 74916 Lymphocytes (Bld) [#/Vol] 1.0 10*3/uL Normal 1.0-3.5 [facility] Comment on above: Performed By: #### Deanna BROWN [facility], #### [facility] ([id number]) [address] [place] [address] 27037 Lymphocytes/100 WBC (Bld) 14.2 % Normal [facility] Comment on above: Performed By: #### Deanna BROWN [facility], #### [facility] ([id number]) [address] [place] [address] 03355 MCH (RBC) [Entitic mass] 31.0 pg Normal 27-34 [facility] Comment on above: Performed By: #### Deanna BROWN CMP, #### [facility] ([id number]) [address] [place] [address] 86279 MCHC (RBC) [Mass/Vol] 33.4 g/dL Normal 32-36 [facility] Comment on above: Performed By: #### C REDD BROWN, #### [facility] ([id number]) [address] [place] [address] 40847 MCV (RBC) [Entitic vol] 93 fL Normal 80-100 [facility] Comment on above: Performed By: #### Deanna BROWN CMP, #### [facility] ([id number]) [address] [place] [address] 84811 Monocytes (Bld) [#/Vol] 1.2 10*3/uL High 0-0.9 [facility] Comment on above: Performed By: #### C KEVIN, CMP, 74557-4 #### [facility] ([id number]) [address] [place] [address] 53519 Monocytes/100 WBC (Bld) 16.8 % Normal [facility] Comment on above: Performed By: #### C KEVIN, CMP, 41910-7 #### [facility] ([id number]) [address] [place] [address] 31365 Neutrophils/100 WBC (Bld) 67.6 % Normal [facility] Comment on above: Performed By: #### Deanna BROWN, CMP, 90268-2 #### [facility] ([id number]) [address] [place] [address] 09662 Platelet mean volume (Bld) [Entitic vol] 8.6 fL Normal 7-12 [facility] Comment on above: Performed By: #### Deanna BROWN, CMP, #### [facility] ([id number]) [address] [place] [address] 31522 Platelets (Bld) [#/Vol] 172 10*3/uL Normal 150-450 [facility] Comment on above: Performed By: #### Deanna BCA, CMP, #### [facility] ([id number]) [address] [place] [address] 85955 RBC COUNT 4.26 X10E12/L Normal 3.80-5.20 [facility] Comment on above: Performed By: #### Deanna BCA, CMP, #### [facility] ([id number]) [address] [place] [address] 68149 WBC (Bld) [#/Vol] 7.3 10*3/uL Normal 4.0-11.0 [facility] Comment on above: Performed By: #### C BCA, CMP, 72434-9 #### [facility] ([id number]) [address] [place] [address] 05593 COMPREHENSIVE METABOLIC PANE Cruzito 01-12-2024 Albumin [Mass/Vol] 3.8 g/dL Normal 3.2-5.3 [facility] Comment on above: Performed By: #### B MP, LIVR, CBCA #### [facility] ([id number]) [address] [place] [address] 18208 ALP [Catalytic activity/Vol] 49 U/L Normal 39-130 [facility] Comment on above: Performed By: #### B MP, LIVR, CBCA #### [facility] ([id number]) [address] [place] [address] 09004 ALT [Catalytic activity/Vol] 28 U/L Normal 0-31 [facility] Comment on above: Performed By: #### B MP, LIVR, CBCA #### [facility] ([id number]) [address] [place] [address] 64189 Anion gap [Moles/Vol] 9 mmol/L Normal 5-15 [facility] Comment on above: Performed By: #### B MP, LIVR, CBCA #### [facility] ([id number]) [address] [place] [address] 60742 AST [Catalytic activity/Vol] 31 U/L Normal 0-41 [facility] Comment on above: Performed By: #### B MP, LIVR, CBCA #### [facility] ([id number]) [address] [place] [address] 96253 Bilirubin [Mass/Vol] 0.4 mg/dL Normal 0.3-1.2 [facility] Comment on above: Performed By: #### B MP, LIVR, CBCA #### [facility] ([id number]) [address] [place] [address] 98488 Calcium [Mass/Vol] 8.5 mg/dL Normal 8.5-10.5 [facility] Comment on above: Performed By: #### B ANJUM LIVR, CBCA #### [facility] ([id number]) [address] [place] [address] 14425 Chloride [Moles/Vol] 104 mmol/L Normal 98-109 [facility] Comment on above: Performed By: #### B ANJUM LIVNaima CBCA #### [facility] ([id number]) [address] [place] [address] 11478 CO2 [Moles/Vol] 25 mmol/L Normal 22-32 [facility] Comment on above: Performed By: #### B ANJUM LIVNaima, CBCA #### [facility] ([id number]) [address] [place] [address] 41848 Creatinine [Mass/Vol] 0.79 mg/dL Normal 0.40-1.00 [facility] Comment on above: Result Comment: METH OD TRACEABLE TO IDMS STANDARD Performed By: #### B ANJUM LIVNaima, CBCA #### [facility] ([id number]) [address] [place] [address] 59720 GFR/1.73 sq M.predicted among non-blacks MDRD (S/P/Bld) [Vol rate/Area] 77 mL/min/{1.73_m2} Normal >59 [facility] Comment on above: Result Comment: Reported eGFR is based on the CKD-EPI 2020 equation that does not use a race coefficient. Performed By: #### B ANJUM LIVR, CBCA #### [facility] ([id number]) [address] [place] [address] 90054 Glucose [Mass/Vol] 78 mg/dL Normal 65-99 [facility] Comment on above: Performed By: #### B MP, LIVR, CBCA #### [facility] ([id number]) [address] [place] [address] 52953 Potassium [Moles/Vol] 3.7 mmol/L Normal 3.5-5.0 [facility] Comment on above: Performed By: #### B MP, LIVR, CBCA #### [facility] ([id number]) [address] [place] [address] 94202 Protein [Mass/Vol] 6.8 g/dL Normal 6.0-8.0 [facility] Comment on above: Performed By: #### B MP, LIVR, CBCA #### [facility] ([id number]) [address] [place] [address] 07280 Sodium [Moles/Vol] 138 mmol/L Normal 134-146 [facility] Comment on above: Performed By: #### B MP, LIVR, CBCA #### [facility] ([id number]) [address] [place] [address] 13593 Urea nitrogen [Mass/Vol] 18 mg/dL Normal 5-27 [facility] Comment on above: Performed By: #### B MP, LIVR, CBCA #### [facility] ([id number]) [address] [place] [address] 61709 MAGNESIUMon 01-12-2024 Magnesium [Mass/Vol] 2.2 mg/dL Normal 1.8-2.6 [facility] Comment on above: Performed By: #### B MP, LIVR, CBCA #### [facility] ([id number]) [address] [place] [address] 46605 CBC AND AUTO DIFFon 01-11-20 ABSOLUTE BASOPHIL 0.0 X10E9/L Normal 0.0-0.2 [facility] Comment on above: Performed By: #### C BCA, CMP, , THYR #### [facility] ([id number]) [address] [place] [address] 24270 ABSOLUTE NEUTROPHIL 4.2 X10E9/L Normal 1.5-6.6 [facility] Comment on above: Performed By: #### C BCA, CMP, , THYR #### [facility] ([id number]) [address] [place] [address] 18504 Basophils/100 WBC (Bld) 0.2 % Normal [facility] Comment on above: Performed By: #### C KEVIN, CMP, , THYR #### [facility] ([id number]) [address] [place] [address] 97638 Eosinophils (Bld) [#/Vol] 0.0 10*3/uL Normal 0.0-0.4 [facility] Comment on above: Performed By: #### C BCA, CMP, , THYR #### [facility] ([id number]) [address] [place] [address] 94346 Eosinophils/100 WBC (Bld) 0.2 % Normal [facility] Comment on above: Performed By: #### Deanna BROWN, CMP, , THYR #### [facility] ([id number]) [address] [place] [address] 86101 Erythrocyte distribution width (RBC) [Ratio] 13.1 % Normal 11.5-15.0 [facility] Comment on above: Performed By: #### C KEVIN, CMP, , THYR #### [facility] ([id number]) [address] [place] [address] 08125 Hematocrit (Bld) [Volume fraction] 37.4 % Normal 35-47 [facility] Comment on above: Performed By: #### C BCA, CMP, , THYR #### [facility] ([id number]) [address] [place] [address] 09404 Hemoglobin (Bld) [Mass/Vol] 12.7 g/dL Normal 11.7-15.5 [facility] Comment on above: Performed By: #### C REDD BROWN, , THYR #### [facility] ([id number]) [address] [place] [address] 97774 Lymphocytes (Bld) [#/Vol] 0.9 10*3/uL Low 1.0-3.5 [facility] Comment on above: Performed By: #### Deanna BROWN CMP, , THYR #### [facility] ([id number]) [address] [place] [address] 26242 Lymphocytes/100 WBC (Bld) 13.6 % Normal [facility] Comment on above: Performed By: #### Deanna BROWN CMP, , THYR #### [facility] ([id number]) [address] [place] [address] 68071 MCH (RBC) [Entitic mass] 31.2 pg Normal 27-34 [facility] Comment on above: Performed By: #### C REDD BROWN, , THYR #### [facility] ([id number]) [address] [place] [address] 35473 MCHC (RBC) [Mass/Vol] 33.9 g/dL Normal 32-36 [facility] Comment on above: Performed By: #### C KEVIN CMP, , THYR #### [facility] ([id number]) [address] [place] [address] 05357 MCV (RBC) [Entitic vol] 92 fL Normal 80-100 [facility] Comment on above: Performed By: #### Deanna BROWN CMP, , THYR #### [facility] ([id number]) [address] [place] [address] 25414 Monocytes (Bld) [#/Vol] 1.2 10*3/uL High 0-0.9 [facility] Comment on above: Performed By: #### C KEVIN CMP, , THYR #### [facility] ([id number]) [address] [place] [address] 40165 Monocytes/100 WBC (Bld) 19.3 % Normal [facility] Comment on above: Performed By: #### Deanna BROWN CMP, , THYR #### [facility] ([id number]) [address] [place] [address] 77359 Neutrophils/100 WBC (Bld) 66.7 % Normal [facility] Comment on above: Performed By: #### Deanna BROWN CMP, , THYR #### [facility] ([id number]) [address] [place] [address] 30149 Platelet mean volume (Bld) [Entitic vol] 8.3 fL Normal 7-12 [facility] Comment on above: Performed By: #### Deanna BROWN, CMP, , THYR #### [facility] ([id number]) [address] [place] [address] 22392 Platelets (Bld) [#/Vol] 174 10*3/uL Normal 150-450 [facility] Comment on above: Performed By: #### Deanna BROWN, CMP, , THYR #### [facility] ([id number]) [address] [place] [address] 35821 RBC COUNT 4.06 X10E12/L Normal 3.80-5.20 [facility] Comment on above: Performed By: #### Deanna BROWN, CMP, , THYR #### [facility] ([id number]) [address] [place] [address] 90526 WBC (Bld) [#/Vol] 6.3 10*3/uL Normal 4.0-11.0 [facility] Comment on above: Performed By: #### C BCA, CMP, , THYR #### [facility] ([id number]) [address] [place] [address] 18227 COMPREHENSIVE METABOLIC PANE Cruzito 01-11-2024 Albumin [Mass/Vol] 3.6 g/dL Normal 3.2-5.3 [facility] Comment on above: Performed By: #### C BCA, CMP, , THYR #### [facility] ([id number]) [address] [place] [address] 06128 ALP [Catalytic activity/Vol] 47 U/L Normal 39-130 [facility] Comment on above: Performed By: #### C BCA, CMP, , THYR #### [facility] ([id number]) [address] [place] [address] 53483 ALT [Catalytic activity/Vol] 27 U/L Normal 0-31 [facility] Comment on above: Performed By: #### C BCA, CMP, , THYR #### [facility] ([id number]) [address] [place] [address] 84536 Anion gap [Moles/Vol] 9 mmol/L Normal 5-15 [facility] Comment on above: Performed By: #### C BCA, CMP, , THYR #### [facility] ([id number]) [address] [place] [address] 10435 AST [Catalytic activity/Vol] 28 U/L Normal 0-41 [facility] Comment on above: Performed By: #### C BCA, CMP, , THYR #### [facility] ([id number]) [address] [place] [address] Bilirubin [Mass/Vol] 0.5 mg/dL Normal 0.3-1.2 [facility] Comment on above: Performed By: #### C BCA CMP, , THYR #### [facility] ([id number]) [address] [place] [address] 05582 Calcium [Mass/Vol] 8.5 mg/dL Normal 8.5-10.5 [facility] Comment on above: Performed By: #### C KEVIN CMP, , THYR #### [facility] ([id number]) [address] [place] [address] 34503 Chloride [Moles/Vol] 106 mmol/L Normal 98-109 [facility] Comment on above: Performed By: #### Deanna BROWN CMP, , THYR #### [facility] ([id number]) [address] [place] [address] 42050 CO2 [Moles/Vol] 24 mmol/L Normal 22-32 [facility] Comment on above: Performed By: #### C BCA, CMP, , THYR #### [facility] ([id number]) [address] [place] [address] 11195 Creatinine [Mass/Vol] 0.74 mg/dL Normal 0.40-1.00 [facility] Comment on above: Result Comment: METH OD TRACEABLE TO IDMS STANDARD Performed By: #### C KEVIN, CMP, , THYR #### [facility] ([id number]) [address] [place] [address] 71224 GFR/1.73 sq M.predicted among non-blacks MDRD (S/P/Bld) [Vol rate/Area] 83 mL/min/{1.73_m2} Normal >59 [facility] Comment on above: Result Comment: Reported eGFR is based on the CKD-EPI 2020 equation that does not use a race coefficient. Performed By: #### C KEVIN CMP, , THYR #### [facility] ([id number]) [address] [place] [address] 14906 Glucose [Mass/Vol] 91 mg/dL Normal 65-99 [facility] Comment on above: Performed By: #### C BCA CMP, , THYR #### [facility] ([id number]) [address] [place] [address] 19954 Potassium [Moles/Vol] 3.7 mmol/L Normal 3.5-5.0 [facility] Comment on above: Performed By: #### C KEVIN CMP, , THYR #### [facility] ([id number]) [address] [place] [address] 06785 Protein [Mass/Vol] 6.5 g/dL Normal 6.0-8.0 [facility] Comment on above: Performed By: #### C KEVIN CMP, , THYR #### [facility] ([id number]) [address] [place] [address] 91880 Sodium [Moles/Vol] 139 mmol/L Normal 134-146 [facility] Comment on above: Performed By: #### C BCA CMP, , THYR #### [facility] ([id number]) [address] [place] [address] 85979 Urea nitrogen [Mass/Vol] 15 mg/dL Normal 5-27 [facility] Comment on above: Performed By: #### C BCA, CMP, , THYR #### [facility] ([id number]) [address] [place] [address] 09221 MAGNESIUMon 01-11-2024 Magnesium [Mass/Vol] 2.6 mg/dL Normal 1.8-2.6 [facility] Comment on above: Performed By: #### 1 9123-9 #### [facility] ([id number]) [address] [place] [address] 03635 Magnesium [Mass/Vol] 1.8 mg/dL Normal 1.8-2.6 [facility] Comment on above: Performed By: #### C BCA, CMP, , THYR #### [facility] ([id number]) [address] [place] [address] 69738 THYROID PROFILEon 01-11-2024 Free T4 [Mass/Vol] 0.81 ng/dL Normal 0.61-1.60 [facility] Comment on above: Performed By: #### C BCA, CMP, , THYR #### [facility] ([id number]) [address] [place] [address] 52175 TSH 0.64 uIU/mL Normal 0.49-4.67 [facility] Comment on above: Performed By: #### C BCA, CMP, , THYR #### [facility] ([id number]) [address] [place] [address] 37824 BASIC METABOLIC PANLon 01-09 Anion gap [Moles/Vol] 7 mmol/L Normal 5-15 [facility] Comment on above: Performed By: #### B MP, LIVR, CBCA #### [facility] ([id number]) [address] [place] [address] 50618 Calcium [Mass/Vol] 8.3 mg/dL Low 8.5-10.5 [facility] Comment on above: Performed By: #### B MP, LIVR, CBCA #### [facility] ([id number]) [address] [place] [address] 37207 Chloride [Moles/Vol] 106 mmol/L Normal 98-109 [facility] Comment on above: Performed By: #### B MP, LIVR, CBCA #### [facility] ([id number]) [address] [place] [address] 41201 CO2 [Moles/Vol] 22 mmol/L Normal 22-32 [facility] Comment on above: Performed By: #### B DIPTI VALERO CBCA #### [facility] ([id number]) [address] [place] [address] 64525 Creatinine [Mass/Vol] 0.90 mg/dL Normal 0.40-1.00 [facility] Comment on above: Result Comment: METH OD TRACEABLE TO IDMS STANDARD Performed By: #### B DIPTI VALERO CBCA #### [facility] ([id number]) [address] [place] [address] 22472 GFR/1.73 sq M.predicted among non-blacks MDRD (S/P/Bld) [Vol rate/Area] 65 mL/min/{1.73_m2} Normal >59 [facility] Comment on above: Result Comment: Reported eGFR is based on the CKD-EPI 2020 equation that does not use a race coefficient. Performed By: #### B DIPTI VALERO CBCA #### [facility] ([id number]) [address] [place] [address] 65958 Glucose [Mass/Vol] 100 mg/dL High 65-99 [facility] Comment on above: Performed By: #### B DIPTI VALERO CBCA #### [facility] ([id number]) [address] [place] [address] 52339 Potassium [Moles/Vol] 4.9 mmol/L Normal 3.5-5.0 [facility] Comment on above: Result Comment: SPEC IMEN HEMOLYZED, RESULTS INCREASED Performed By: #### B DIPTI VALERO CBCA #### [facility] ([id number]) [address] [place] [address] 46186 Sodium [Moles/Vol] 135 mmol/L Normal 134-146 [facility] Comment on above: Performed By: #### B MP, LIVR, CBCA #### [facility] ([id number]) [address] [place] [address] 30565 Urea nitrogen [Mass/Vol] 19 mg/dL Normal 5-27 [facility] Comment on above: Performed By: #### B MP, LIVR, CBCA #### [facility] ([id number]) [address] [place] [address] 07644 CBC AND AUTO DIFFon 01-10-20 24 ABSOLUTE BASOPHIL 0.0 X10E9/L Normal 0.0-0.2 [facility] Comment on above: Performed By: #### B MP, LIVR, CBCA #### [facility] ([id number]) [address] [place] [address] [id number] ABSOLUTE NEUTROPHIL 5.2 X10E9/L Normal 1.5-6.6 [facility] Comment on above: Performed By: #### B MP, LIVR, CBCA #### [facility] ([id number]) [address] [place] [address] [id number] Basophils/100 WBC (Bld) 0.2 % Normal [facility] Comment on above: Performed By: #### B MP, LIVR, CBCA #### [facility] ([id number]) [address] [place] [address] [id number] Eosinophils (Bld) [#/Vol] 0.0 10*3/uL Normal 0.0-0.4 [facility] Comment on above: Performed By: #### B MP, LIVR, CBCA #### [facility] ([id number]) [address] [place] [address] [id number] Eosinophils/100 WBC (Bld) 0.2 % Normal [facility] Comment on above: Performed By: #### B MP, LIVR, CBCA #### [facility] ([id number]) [address] [place] [address] [id number] Erythrocyte distribution width (RBC) [Ratio] 13.2 % Normal 11.5-15.0 [facility] Comment on above: Performed By: #### B MP, LIVR, CBCA #### [facility] ([id number]) [address] [place] [address] [id number] Hematocrit (Bld) [Volume fraction] 36.7 % Normal 35-47 [facility] Comment on above: Performed By: #### B MP, LIVR, CBCA #### [facility] ([id number]) [address] [place] [address] [id number] Hemoglobin (Bld) [Mass/Vol] 12.5 g/dL Normal 11.7-15.5 [facility] Comment on above: Performed By: #### B MP, LIVR, CBCA #### [facility] [facility] ([id number][facility] [address] [place] [address] 41342 Lymphocytes (Bld) [#/Vol] 0.7 10*3/uL Low 1.0-3.5 [facility] Comment on above: Performed By: #### B MP, LIVR, CBCA #### [facility] ([id number]) [address] [place] [address] 38368 Lymphocytes/100 WBC (Bld) 9.9 % Normal [facility] Comment on above: Performed By: #### B MP, LIVR, CBCA #### [facility] ([id number]) [address] [place] [address] 33672 MCH (RBC) [Entitic mass] 31.4 pg Normal 27-34 [facility] Comment on above: Performed By: #### B MP, LIVR, CBCA #### [facility] ([id number]) [address] [place] [address] MCHC (RBC) [Mass/Vol] 34.0 g/dL Normal 32-36 [facility] Comment on above: Performed By: #### B MP, LIVR, CBCA #### [facility] ([id number]) [address] [place] [address] 43177 MCV (RBC) [Entitic vol] 92 fL Normal 80-100 [facility] Comment on above: Performed By: #### B MP, LIVR, CBCA #### [facility] ([id number]) [address] [place] [address] 43999 Monocytes (Bld) [#/Vol] 1.0 10*3/uL High 0-0.9 [facility] Comment on above: Performed By: #### B MP, LIVR, CBCA #### [facility] ([id number]) [address] [place] [address] 66213 Monocytes/100 WBC (Bld) 14.7 % Normal [facility] Comment on above: Performed By: #### B MP, LIVR, CBCA #### [facility] ([id number]) [address] [place] [address] 92234 Neutrophils/100 WBC (Bld) 75.0 % Normal [facility] Comment on above: Performed By: #### B MP, LIVR, CBCA #### [facility] ([id number]) [address] [place] [address] 34898 Platelet mean volume (Bld) [Entitic vol] 8.1 fL Normal 7-12 [facility] Comment on above: Performed By: #### B MP, LIVR, CBCA #### [facility] ([id number]) [address] [place] [address] 66714 Platelets (Bld) [#/Vol] 173 10*3/uL Normal 150-450 [facility] Comment on above: Performed By: #### B MP, LIVR, CBCA #### [facility] ([id number]) [address] [place] [address] 52534 RBC COUNT 3.97 X10E12/L Normal 3.80-5.20 [facility] Comment on above: Performed By: #### B MP, LIVR, CBCA #### [facility] ([id number]) [address] [place] [address] 96960 WBC (Bld) [#/Vol] 6.9 10*3/uL Normal 4.0-11.0 [facility] Comment on above: Performed By: #### B MP, LIVR, CBCA #### [facility] ([id number]) [address] [place] [address] 59216 LIVER PANELon 01-10-2024 Albumin [Mass/Vol] 3.9 g/dL Normal 3.2-5.3 [facility] Comment on above: Performed By: #### B MP, LIVR, CBCA #### [facility] ([id number]) [address] [place] [address] 10499 ALP [Catalytic activity/Vol] 47 U/L Normal 39-130 [facility] Comment on above: Performed By: #### B MP, LIVR, CBCA #### [facility] ([id number]) [address] [place] [address] 12731 ALT [Catalytic activity/Vol] 23 U/L Normal 0-31 [facility] Comment on above: Result Comment: SPEC IMEN HEMOLYZED, RESULTS INCREASED Performed By: #### B MP, LIVR, CBCA #### [facility] ([id number]) [address] [place] [address] 26654 AST [Catalytic activity/Vol] 44 U/L High 0-41 [facility] Comment on above: Result Comment: SPEC IMEN HEMOLYZED, RESULTS INCREASED Performed By: #### B MP, LIVR, CBCA #### [facility] ([id number]) [address] [place] [address] Bilirubin [Mass/Vol] 1.3 mg/dL High 0.3-1.2 [facility] Comment on above: Result Comment: RESU LTS QUESTIONABLE DUE TO HEMOLYSIS Performed By: #### B MP, LIVR, CBCA #### [facility] ([id number]) [address] [place] [address] 59926 Bilirubin.direct [Mass/Vol] 0.4 mg/dL Normal 0.0-0.4 [facility] Comment on above: Performed By: #### B MP, LIVR, CBCA #### [facility] ([id number]) [address] [place] [address] 07936 Protein [Mass/Vol] 7.0 g/dL Normal 6.0-8.0 [facility] Comment on above: Result Comment: SPEC IMEN HEMOLYZED, RESULTS INCREASED Performed By: #### B MP, LIVR, CBCA #### [facility] ([id number]) [address] [place] [address] 18778 XR CHEST 1 VWon 01-10-2024 SARS-CoV-2 (COVID-19) [...] Lockett MD on 01/10/2024 8:08 PM Normal [facility] XR Lumbar spine 4 [facility] Result: June 05, 2023 x-rays AP lateral and lateral flexion-extension views of the lumbar spine demonstrate severe scoliosis apex to the right at the thoracolumbar junction of nearly 90 degrees curvature in the coronal plane. There are no definitive fractures identified. Impression: Severe scoliosis Corwin Lui D.O. [facility] XR Lumbar spine 4 ViewsOrder ed By: Denisah Lui on 06-06-2023 [facility] [employer] Work Phone: XR Lumbar spine 4 [facility] Radiology Study observation (narrative) [facility] SCREENING MAMMOGRAM W/JORDAN, BILATERAL*on 04-10-2021 [...] VERY IMPORTANT TO YOUR HEALTH. THE CURRENT [employer] GUIDELINES RECOMMENDS ANNUAL MAMMOGRAPHY BEGINNING AT AGE 40 THIS FACILITY USES A REMINDER SYSTEM TO ENSURE ALL PATIENTS RECEIVE REMINDER NOTIFICATIONS AT THE APPROPRIATE TIME BASED ON THE RECOMMENDATIONS OF THIS EXAM. Report reported and signed by Filiberto Love on 04/10/2021 1211 Normal [facility] [employer] Vital Signs Date Time Vital Sign Value Performing Clinician Farhad rodriguez 02-03-2024 09:06-0400 Body height 153.7 cm Lisandra Jimenez MD Work Phone: [facility] 02-03-2024 09:06-0400 Body mass index (BMI) [Ratio] 21.32 kg/m2 Lisandra Jimenez MD Work Phone: [facility] 02-03-2024 09:06-0400 Body weight 50.35 kg Lisandra Jimenez MD Work Phone: [facility] 02-03-2024 09:06-0400 Heart rate 83 /min Lisandra Jimenez MD Work Phone: [facility] 02-03-2024 09:06-0400 SaO2% (BldA) [Mass fraction] 94 % Lisandra Jimenez MD Work Phone: [facility] 06-10-2023 10:05-0500 Body height 154.9 cm Lisandra Jimenez MD Work Phone: [facility] 06-10-2023 10:05-0500 Body mass index (BMI) [Ratio] 20.6 kg/m2 Lisandra Jimenez MD Work Phone: [facility] 06-10-2023 10:05-0500 Body weight 49.44 kg Lisandra Jimenez MD Work Phone: [facility] 06-10-2023 10:05-0500 Diastolic blood pressure 68 mm[Hg] Lisandra Jimenez MD Work Phone: [facility] 06-10-2023 10:05-0500 Heart rate 76 /min Lisandra Jimenez MD Work Phone: [facility] 06-10-2023 10:05-0500 Respiratory rate 16 /min Lisandra Jimenez MD Work Phone: [facility] 06-10-2023 10:05-0500 Systolic blood pressure 130 mm[Hg] Lisandra Jimenez MD Work Phone: [facility] Healthcare Encounters Encounter Date Encounter Type Care Provider Facility Start: 03-23-2024 End: 03-23-2024 ambulatory Mere Woodard MD Facility:[facility] Start: 03-03-2024 End: 03-03-2024 Refill Lisandra Jimenez MD Work Phone: [facility] Comment on above: Gastroesophageal ref lux disease without esophagitis; Mixed stress and urge urinary incontinence; Tachycardia; Age-related osteoporosis without current pathological fracture ([facility] Start: 02-03-2024 End: 02-03-2024 Bamboo flowsheet Lisandra [...] 01-13-2024 Emergency department patient visit SERGIO JARVIS [facility] Start: 01-10-2024 End: 01-12-2024 ambulatory LISANDRA JIMENEZ [facility] Start: 01-10-2024 End: 01-10-2024 ambulatory JEY GOMEZ Not Available Start: 01-07-2024 End: 01-07-2024 ambulatory LISANDRA JIMENEZ Not Available Start: 12-12-2023 End: 12-12-2023 ambulatory YANETH Corea LEIA Not Available Start: 12-10-2023 End: 12-10-2023 [...] 09-30-2023 End: 09-30-2023 ambulatory Mere Woodard MD Facility:[facility] Start: 09-27-2023 End: 09-27-2023 ambulatory BELÉN BOYCE Not Available Start: 09-24-2023 End: 09-24-2023 ambulatory BELÉN BOYCE Not Available Start: 09-20-2023 End: 09-20-2023 ambulatory YANETH J LEIA Not Available Start: 09-17-2023 End: 09-17-2023 ambulatory YANETH J LEIA Not Available Start: 09-16-2023 End: 09-16-2023 ambulatory Mere Woodard MD Facility:[facility] Start: 09-12-2023 End: 09-12-2023 ambulatory YANETH J LEIA Not Available Start: 09-09-2023 End: 09-09-2023 ambulatory BELÉN BOYCE Not Available Start: 09-06-2023 End: 09-06-2023 ambulatory YANETH J LEIA Not Available Start: 09-04-2023 End: 09-04-2023 ambulatory BELÉN BOYCE Not Available Start: 09-02-2023 End: 09-02-2023 ambulatory BELÉN OBYCE Not Available Start: 08-26-2023 End: 08-26-2023 ambulatory BELÉN BOYCE Not Available Start: 08-23-2023 End: 08-23-2023 ambulatory YANETH J LEIA Not Available Start: 08-19-2023 End: 08-19-2023 ambulatory Mere Woodard MD Facility:[facility] Start: 08-02-2023 Telephone encounter Maya Villalobos RN [facility] Comment on above: Records, transfer to [facility] Start: 07-30-2023 End: 07-30-2023 ambulatory LISANDRA F TONY Not Available Start: 07-17-2023 End: 07-17-2023 [...] loss; Age-related osteoporosis without current pathological fracture ([facility]) Start: 06-10-2023 End: 06-10-2023 Patient encounter status Lisandra Jimenez MD Work Phone: [facility] Work Phone: Start: 06-10-2023 End: 06-10-2023 ambulatory LISANDRA JIMENEZ Not Available Start: 06-06-2023 Refill Loli Yang Work Phone: [facility] Comment on above: Postnasal discharge Start: 06-05-2023 End: 06-05-2023 ambulatory FLORENCE Duneas APLING Not Available Start: 06-05-2023 End: 06-05-2023 ambulatory FLORENCE Duenas APLING Not Available Start: 06-05-2023 End: 06-05-2023 Office outpatient visit 15 minutes Florence Duenas Apling LAYER OUT Work Phone: [facility] Comment on above: S/P total left hip a rthroplasty (Primary Dx); Low back pain without sciatica, unspecified back pain laterality, unspecified chronicity; DDD (degenerative disc disease), lumbar; Scoliosis of thoracolumbar spine, unspecified scoliosis type Start: 04-30-2023 End: 04-30-2023 ambulatory LISANDRA JIMENEZ Not Available Start: 04-02-2023 End: 04-02-2023 ambulatory DENISHA Ronen CLINT Not Available Procedures Date Procedure Procedure Detail Performing Clinician Start: 06-05-2023 Radex spine lumbosac ral minimum 4 views Florence Robins LAYER OUT Work Phone: Plan of Treatment Date Care Activity Detail Author Start: 06-10-2024 Medicare Annual Wellness (AWV) Medicare Annual Wellness (AWV) [facility] Start: 02-03-2024 End: 02-03-2024 Patient encounter procedure 02/03/2024 9:00 AM EDT Office Visit [facility] [address] [facility] [place] [id number] Lisandra Jimenez MD [address] [facility] [place] [address] Arrived [facility] Comment on above: Arrived Start: 01-02-2024 Adult BMI Screening Adult BMI Screen ing [facility] Start: 12-29-2023 Influenza vaccination P [facility] Start: 12-29-2023 Tobacco Screening Tobacco Screening [facility] Start: 12-09-2023 End: 12-09-2023 Patient encounter procedure 12/09/2023 9:40 AM EDT Office Visit [facility] [address] [place] [address] Lisandra Jimenez MD [address] [facility] [place] [address] [facility] Start: 08-01-2023 Medicare Annual Wellness (AWV) Medicare Annual Wellness (AWV) [facility] Start: 07-30-2023 End: 07-30-2023 Patient encounter procedure 07/30/2023 9:00 AM EDT Office Visit [facility] [address] [place] [address] Lisandra Jimenez MD [address] [facility] [place] [address] [facility] Start: 07-01-2023 End: 07-01-2023 Patient encounter procedure 07/01/2023 9:00 AM EST Office Visit [facility] [address] [place] [address] Florence Robins, LAYER OUT [address] [place] [address] [facility] Start: 06-26-2023 End: 06-26-2023 Patient encounter procedure 06/26/2023 10:00 AM EST Office Visit [facility] [address] [place] [address] Florence Robins, LAYER OUT [address] [place] [address] [facility] Start: 06-10-2023 End: 06-10-2023 Patient encounter procedure [facility] Comment on above: Arrived Start: 02-10-2023 DTaP,Tdap and Td Vaccines (3 - Td or Tdap) DTaP,Tdap and Td Vaccines (3 - Td or Tdap) [facility] Start: 12-28-2022 COVID-19 Vaccine ( season) COVID-19 Vaccine ( season) [facility] Start: 2010 Fall Risk Screening Fall Risk Screen ing [facility] Start: 1957 [facility] Medicare Annual Wellness Visit Medicare Annual Wellness Visit [facility] Immunizations Immunization Date Immunization Notes Care Provider Fa cili 02-03-2024 influenza, high dose seasonal, preservative-free Lisandra Jimenez MD Work Phone: [facility] 04-08-2023 RSV, recombinant, protein subunit RSVpreF, adjuvant reconstitu, 120mcg/0.5mL, PF (Arexvy) Lisandra Jimenez MD Work Phone: [facility] 01-28-2023 Influenza, High-dose Seasonal, Quadrivalent, Preservative Free Loli Rivera LAYER OUT Work Phone: [facility] Work Phone: 01-28-2023 influenza virus vacc ine, unspecified formulation Lisandra Jimenez MD Work Phone: [facility] 02-06-2022 Influenza, High-dose Seasonal, Quadrivalent, Preservative Free Loli Rivera LAYER OUT Work Phone: [facility] 02-06-2022 Moderna Bivalent Price ster Vaccination Loli Rivera LAYER OUT Work Phone: [facility] 02-06-2022 Moderna SARS-CoV-2 50mcg/0.5mL Booster Loli Rivera LAYER OUT Work Phone: [facility] 02-06-2022 influenza virus vacc ine, unspecified formulation Maya Villalobos RN [facility] 01-26-2021 Influenza, High-dose Seasonal, Quadrivalent, Preservative Free Loli Rivera LAYER OUT Work Phone: [facility] 01-27-2020 Influenza, High-dose Seasonal, Quadrivalent, Preservative Free Loli Rivera LAYER OUT Work Phone: [facility] 03-12-2019 zoster vaccine recombinant Loli Rivera LAYER OUT Work Phone: [facility] 01-26-2019 zoster vaccine, live Loli W olf LAYER OUT Work Phone: [facility] 01-22-2019 influenza, high dose seasonal, preservative-free Loli Irvera LAYER OUT Work Phone: [facility] 01-22-2019 Influenza, High-dose Seasonal, Quadrivalent, Preservative Free Loli Rivera LAYER OUT Work Phone: [facility] 01-22-2019 zoster vaccine recombinant Loli Rivera LAYER OUT Work Phone: [facility] 01-20-2018 influenza, high dose seasonal, preservative-free Loli Rivera LAYER OUT Work Phone: [facility] 01-20-2018 influenza, injectabl e, quadrivalent, preservative free Loli Rivera LAYER OUT Work Phone: [facility] 01-18-2017 influenza, high dose seasonal, preservative-free Loli Rivera LAYER OUT Work Phone: [facility] 01-18-2017 Influenza, High-dose Seasonal, Quadrivalent, Preservative Free Loli Rivera LAYER OUT Work Phone: [facility] 01-17-2016 influenza, high dose seasonal, preservative-free Loli Rivera LAYER OUT Work Phone: [facility] 01-17-2016 pneumococcal conjuga te vaccine, 13 valent Loli Rivera LAYER OUT Work Phone: [facility] 01-12-2015 influenza, high dose seasonal, preservative-free Loli Rivera LAYER OUT Work Phone: [facility] 01-11-2014 influenza, high dose seasonal, preservative-free Loli Rivera LAYER OUT Work Phone: [facility] 02-10-2013 tetanus and diphther ia toxoids, adsorbed, preservative free, for adult use (5 Lf of tetanus toxoid and 2 Lf of diphtheria toxoid) Loli Rivera LAYER OUT Work Phone: [facility] 02-10-2013 tetanus toxoid, redu jessica diphtheria toxoid, and acellular pertussis vaccine, adsorbed Loli Rivera LAYER OUT Work Phone: [facility] 02-06-2013 seasonal influenza, intradermal, preservative free Loli Rivera LAYER OUT Work Phone: [facility] 12-23-2012 zoster vaccine, live Loli W olf LAYER OUT Work Phone: [facility] 12-12-2012 pneumococcal polysaccharide vaccine, 23 valent Loli Rivera LAYER OUT Work Phone: [facility] 02-06-2012 influenza, seasonal, injectable, preservative free Loli Rivera LAYER OUT Work Phone: [facility] 04-17-2004 influenza, seasonal, injectable Loli Rivera LAYER OUT Work Phone: [facility] 04-27-2003 influenza, seasonal, injectable Loli Rivera LAYER OUT Work Phone: [facility] 04-27-2002 influenza, seasonal, injectable Loli Rivera LAYER OUT Work Phone: [facility] Healthcare 04-01-2001 influenza, seasonal, injectable Loli Rivera LAYER OUT Work Phone: [facility] 03-08-1999 pneumococcal polysaccharide vaccine, 23 valent Loli Rivera LAYER OUT Work Phone: [facility] Healthcare Payers Date Payer Category Payer Private Health Insurance 2021 Medicaid [employer] MEDICARE A DVANTAGE [id number] 2021 Medicare [id number] 2021 Medicare [id number] 1945 Unknown [id number] 2.16.840.1.260204.3.579.2. 1286 1945 Unknown [id number] 2.16.840.1.929261.3.579.2. 128 1945 Unknown [id number] 2.16.840.1.216382.3.579.2. 1259 1945 Unknown [id number] 2.16.840.1.785208.3.579.2. 1259 1945 Unknown [id number] 2.16.840.1.774696.3.579.2. 1259 1945 Unknown [id number] 2.16.840.1.174990.3.579.2. 1259 1945 Unknown [id number] 2.16.840.1.890154.3.579.2. 1258 1945 Unknown [id number] 2.16.840.1.804543.3.579.2. 1258 1945 Unknown [id number] 2.16.840.1.897841.3.579.2. 1258 1945 Unknown [id number] 2.16.840.1.385643.3.579.2. 1258 1945 Unknown [id number] 2.16.840.1.606455.3.579.2. 1258 1945 Unknown [id number] 2.16.840.1.249227.3.579.2. 1258 1945 Unknown [id number] 2.16.840.1.854843.3.579.2. 1258 1945 Unknown [id number] 2.16.840.1.427917.3.579.2. 1258 1945 Unknown [id number] 2.16.840.1.364297.3.579.2. 1258 1945 Unknown [id number] 2.16.840.1.912599.3.579.2. 1258 1945 Unknown [id number] 2.16.840.1.732563.3.579.2. 1258 1945 Unknown [id number] 2.16.840.1.492542.3.579.2. 1258 1945 Unknown [id number] 2.16.840.1.305834.3.579.2. 1258 1945 Unknown [id number] 2.16.840.1.003768.3.579.2. 1258 1945 Unknown [id number] 2.16.840.1.593862.3.579.2. 1258 1945 Unknown [id number] 2.16.840.1.218583.3.579.2. 1259 1945 Unknown [id number] 2.16.840.1.478145.3.579.2. 125 1945 Unknown [id number] 2.16.840.1.400246.3.579.2. 125 1945 Unknown [id number] 2.16.840.1.003769.3.579.2. 1258 1945 Unknown [id number] 2.16.840.1.552287.3.579.2. 125 1945 Unknown [id number] 2.16.840.1.727126.3.579.2. 1258 1945 Unknown [id number] 2.16.840.1.223328.3.579.2. 1258 1945 Unknown [id number] 2.16.840.1.717173.3.579.2. 1258 1945 Unknown [id number] 2.16.840.1.113567.3.579.2. 1258 1945 Unknown [id number] 2.16.840.1.161054.3.579.2. 1258 1945 Unknown [id number] 2.16.840.1.569687.3.579.2. 1258 1945 Unknown [id number] 2.16.840.1.335257.3.579.2. 1258 1945 Unknown [id number] 2.16.840.1.758300.3.579.2. 1258 1945 Unknown [id number] 2.16.840.1.601060.3.579.2. 1258 1945 Unknown [id number] 2.16.840.1.648363.3.579.2. 1258 1945 Unknown [id number] 2.16.840.1.861350.3.579.2. 1258 1945 Unknown [id number] 2.16.840.1.745186.3.579.2. 1259 1945 Unknown [id number] 2.16.840.1.977166.3.579.2. 1259 1945 Unknown [id number] 2.16.840.1.776735.3.579.2. 9 1945 Unknown [id number] 2.16.840.1.033434.3.579.2. 1259 1945 Unknown [id number] 2.16.840.1.635706.3.579.2. 1259 1945 Unknown [id number] 2.16.840.1.944051.3.579.2. 196 1945 Unknown [id number] 2.16.840.1.854528.3.579.2. 196 1945 Unknown [id number] 2.16.840.1.872570.3.579.2. 196 1945 Unknown [id number] 2.16.840.1.042620.3.579.2. 196 Social History Date Type Detail Facility Start: 05-24-2022 End: 10-10-2022 Tobacco smoking status NMIS Never smoked tobacco [facility] Start: 05-24-2022 [...] partner or ex-partner? No [facility] [employer] Not on file [facility] Do [...] Alcohol intake Current non-drinker of alcohol (finding) [employer] Medical Equipment Procedure Code Equipment Code Equipment Origin al Text Equipment Identifier Dates Lens Iol Ultrase rt 11.5d - [id number] - [id number] Start: 04-03-2018 Lens Iol Ultrase rt 13.0d - [id number] - [id number] Start: 08-28-2018 Head Fem 32mm 0m m Vrsy Cocr Hip Rpl [id number] - [id number] - [id number]$$ [id number], [id number] FDA Start: 12-26-2022 Screw Bn 15mm 6. [address]mm [address] Hip Actb Trlg Strl Rpl [id number] - [id number] - [id number] Start: 12-26-2022 Goals Date Patient Goal [...] 03-03-2024 Telephone encounter Note Approvals with refills [facility] 03-03-2024 Miscellaneous Notes Approvals with refills documented in this encounter [facility] 02-03-2024 History of Present illness Narrative Images [...] challenging. She also consumes iced coffee from [employer]. SUBJECTIVE: MEDICATIONS: Current Outpatient Medications Medication Instructions [...] good preventative measure. documented in this encounter [facility] 08-02-2023 Miscellaneous Notes Received a phone call from [facility] for patient records to be transferred. documented in this encounter [facility] 08-02-2023 Telephone encounter Note Received a phone call from [facility] for patient records to be transferred. [facility] 06-11-2023 Telephone encounter Note PT Calling to check status of this request, unsure as how to explain the denial of the refill. [facility] 06-11-2023 Miscellaneous Notes PT Calling to check status of this request, unsure as how to explain the denial of the refill. Medication refused due to failing protocol. Requested Prescriptions Pending Prescriptions Disp Refills methylPREDNISolone (Medrol Dospak) 4 MG tablets 21 tablet Sig: Follow schedule on package instructions There is no refill protocol information for this order documented in this encounter [facility] 06-11-2023 Telephone encounter Note Medication refused due to failing protocol. Requested Prescriptions Pending Prescriptions Disp Refills methylPREDNISolone (Medrol Dospak) 4 MG tablets 21 tablet Sig: Follow schedule on package instructions There is no refill protocol information for this order [facility] 06-10-2023 History of Present illness Narrative Marck [...] in 6months documented in this encounter [facility] [facility] History of Present illness [...] fracture (CMS/HCC) documented in this encounter [facility] HealthcareEvaluation note* [...] encounter [facility] HealthcareInstructionsNot on filedocumented in this encounterAvita [facility] Purpose Family History No Family History Records FoundNo Family History Records FoundNo Family History Records FoundNo Family History Records Found Advance Directives No Advanced Directives Records FoundDocuments on File Type Date Recorded 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 Living Will 01/17/2023 11:55 AM Durable Power of Continuous Process 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 01/17/2023 11:54 AM Latest Code Status on File Code Status Date Activated Date Inactivated Comments Full Code 12/28/2022 6:14 PM 01/01/2023 3:49 PM Code Status History Code Status Date Activated Date Inactivated Comments Full Code 12/26/2022 10:18 AM 12/27/2022 7:36 PM Additional Source Comments INFORMATION SOURCE (unrecogn ized section and content) DATE CREATED AUTHOR 04/10/2021 [facility] dical Specialist DATE CREATED AUTHOR AUTHOR'S ORGANIZ ATION 01/13/2024 [facility] DATE CREATED AUTHOR AUTHOR'S ORGANIZ ATION 02/04/2024 [facility] dical Specialists EPIC DATE CREATED AUTHOR AUTHOR'S ORGANIZ ATION 03/29/2024 [facility] Reason for Visit (unrecogniz ed section and content) Reason Comments Med Refill Reason Comments Medicare Annual Wellness Visit Subsequen t Reason Onset Date Comments Records, transfer to [facility] 08/02/2023 Reason Comments Follow-up Patient here for 6 m [facility] follow up. She was in the ER in December and was dx with Covid. She is doing better now. Would like to get her flu shot today. No refills needed today. No issues with her medications at this time. Care Teams (unrecognized sec tion and content) Social Insurance Specialist Relationship Specialty Start Date End Date Benji Cantrell MD [address] [place] [address] PCP - [employer] 04/29/22 Lisandra Jimenez MD [address] [place] [address] PCP - General Family Medicine 09/10/22 Social Insurance Specialist Relationship Specialty Start Date End Date Benji Cantrell MD [address] [place] [address] PCP - [employer] 04/29/22 Lisandra Jimenez MD [address] [place] [address] PCP - General Family Medicine 09/10/22 Social Insurance Specialist Relationship Specialty Start Date End Date Benji Cantrell MD [address] [facility] [address] [place] [address] PCP - [employer] 04/29/22 Lisandra Jimenez MD [address] [place] [address] PCP - General Family Medicine 09/10/22 Social Insurance Specialist Relationship Specialty Start Date End Date Benji Cantrell MD [address] [facility] [address] [place] [address] PCP - [employer] 04/29/22 Lisandra Jimenez MD [address] [place] [address] PCP - General Family Medicine 09/10/22 Social Insurance Specialist Relationship Specialty Start Date End Date Benji Cantrell MD [address] [facility] [address] [place] [address] PCP - [employer] 04/29/22 Lisandra Jimenez MD [address] [place] [address] PCP - General Family Medicine 09/10/22 Social Insurance Specialist Relationship Specialty Start Date End Date Lisandra Jimenez MD [address] [place] [address] PCP - General Family Medicine 11/12/16 Social Insurance Specialist Relationship Specialty Start Date End Date Benji Cantrell MD [address] [facility] [address] [place] [address] PCP - [employer] 04/29/21 Lisandra Jimenez MD [address] [place] [address] PCP - General Family Medicine 09/10/22 Social Insurance Specialist Relationship Specialty Start Date End Date Benji Cantrell MD [address] [address] PCP - Aet 04/29/21 Lisandra Jimenez MD [address] [place] [address] PCP - General Family Medicine 09/10/22 Social Insurance Specialist Relationship Specialty Start Date End Date Benji Cantrell MD [address] [address] PCP - Aet 04/29/21 Lisandra Jimenez MD [address] [place] [address] PCP - General Family Medicine 09/10/22 FOR RECORDS PERTAINING TO PATIENTS WHO [...] BE BASED ON THE PRIMARY CLINICAL RECORDS. [facility] [employer] [facility]. provides no warranty or guarantee of the accuracy or completeness of information in this document.
[2024-03-30] MEDS: BUPIVACAINE HCL 0.25% PF 25 MG/10 ML VIAL 2 ML INJ (10:05)
[2024-03-30] MEDS: LIDOCAINE HCL 2% 400 MG/20 ML MDV INJ (10:05)
[2024-03-30] MEDS: TRIAMCINOLONE ACETONIDE 40 MG/ML VIAL INJ (10:05)
[2024-03-30] MEDS: IOHEXOL 240 MG/ML - 10 ML VIAL 24 MG INJ (10:05)
--- NOTE | 2024-03-30 10:08 | W.PM.PROCNOT ---
Date of procedure: 03/30/24 Pre-op diagnosis: Pain due to left sacroiliitis Post-op diagnosis: same as pre-op Procedure: Procedure: Left sacroiliac joint injection Medications: Bupivacaine 0.25% 3cc, kenalog 40mg After informed consent was obtained, the patient was brought to the medical procedure unit and placed in the prone position, when a timeout was completed verifying correct patient, procedure, site, positioning, implant, and/or special equipment.? The skin overlying the area was prepped and draped in standard sterile fashion using alcohol.? A 25-gauge needle was inserted towards the left sacroiliac joint under direct fluoroscopic imaging.? Needle tip was advanced until the joint was encountered.? We instilled a total of 2 mL of solution.? Postoperatively needles were removed.? The patient tolerated the procedure well without complication.? The patient reported reduction in pain symptoms postoperatively. Anesthesia: Local Surgeon: Mere Woodard Pathology: none sent Condition: stable Disposition: no change
[2024-03-30 10:19] VITALS: BP 158/77; BP 165/78; PULSE 72; PULSE 74; O2SAT 96; O2SAT 97
== END 2024-03-30 10:12 | disposition home or self-care (01) ==
LOC: SURGOUT 09:24
PROVIDERS: PCP Family Medicine; Visit Provider Anesthesiology
DX: M46.1 Sacroiliitis, not elsewhere classified (principal)
CPT/HCPCS: 27096; J0665; J3301; Q9966

== ENCOUNTER 2024-04-09 09:01 | Outpatient (OUT) | payer MEDICARE, SELFPAY ==
--- NOTE | 2024-04-09 09:28 | P.CN_ITS ---
Consult Note: HPI Data of Consult Patient: known to practice within the last 3 years Consult date: 03/23/24 Requesting Physician: Teresa Lynn NP Primary Care Provider: YOLA AMES Consult Narrative Reason for consult: left low back, hip pain Narrative: 78yof who presents for assessment. Worsening left low back and hip pain. Has previously undergone left SIJ injection, which provided >50% relief >3 months. Continues in a provider directed home exercise program >6 weeks, without benefit. Uses tylenol as needed. Denies adverse med side effects. recently underwent repeat left SIJ injection with >90% improvement ongoing cc:: CC: Teresa Lynn NP Review of Systems ROS Status of ROS 10 or more systems reviewed and unremark able except as noted in history and below [facility] Medical History (Updated 10/10/23 @ 09:33 by Teresa Lynn NP) Low back pain ?M54.50 - Low back pain, unspecified (ICD-10) Surgical History History of hip replacement ?Z96.649 - Presence of unspecified artificial hip joint (ICD-10) Meds Home Medications and Allergies Home Medications ?Medication ?Instructions ?Recorded ?Confirmed ?Type acetaminophen 650 mg 650 mg PO Q12H PRN pain 08/19/23 09/30/23 History tablet,extended release (Tylenol Arthritis Pain) alendronate 70 mg tablet 70 mg PO QWEEK 08/19/23 09/30/23 History famotidine 20 mg tablet 20 mg PO DAILY 08/19/23 09/30/23 History ferrous sulfate 325 mg (65 mg 325 mg PO DAILY 08/19/23 09/30/23 History iron) tablet (Feosol) metoprolol succinate 25 mg 25 mg PO BID 08/19/23 09/30/23 History tablet,extended release 24 hr tolterodine 2 mg tablet 2 mg PO DAILY 08/19/23 09/30/23 History lidocaine 5 % topical patch 1 patch topical DAILY #30 ea 10/10/23 Rx Allergies Allergy/AdvReac Type Severity Reaction Status Date / Time No Known Drug Allergies Allergy Verified 09/30/23 10:27 Exam Narrative Exam Narrative: Psych-alert and oriented x 3. Attentive and appropriate, constitutionally normal, displays normal mood and affect per situation.? There are no obvious deficits in memory, reasoning, or intellect.? Skin-no obvious rashes, bruising, erythema noted to the patient's area of pain. Extremities- extremities are warm with minimal edema and palpable pulses. Lumbar-no significant tenderness to palpation noted in the lumbar spine and paraspinal musculature.? Pain is elicited with extension, and lateral rotation of the lumbar spine. Range of motion is slightly diminished with these motions due to pain. Sacroiliac - tender to palpation over left PSIS. Negative Leland's on the left. Negative thigh thrust on the left. Coordination remains intact.? Gait remains non-antalgic. Assessment and Plan Assessment and Plan (1) Sacroiliitis: Plan continue HEP as tolerated continue PRN tylenol f/u 3 months, sooner if needed
== END 2024-04-09 09:02 | disposition home or self-care (01) ==
LOC: PM 09:03
PROVIDERS: PCP Family Medicine; Visit Provider Nurse Practitioner
DX: M46.1 Sacroiliitis, not elsewhere classified (principal)
CPT/HCPCS: G0463

== ENCOUNTER 2024-07-09 09:37 | Outpatient (OUT) | payer MEDICARE, SELFPAY ==
--- OUTSIDE RECORDS SUMMARY | 2024-07-09 09:49 | XMS_ITS | CCD ---
Author Organization [facility] CliniSymd Care Team Providers Care Corporate Risk Analyst Name Role Phone Benji Cantrell MD Unavailable [phone] Lisandra Jimenez MD Primary Care Provider LISANDRA JIMENEZ Primary Care Unavailable SERGIO JARVIS Attending Unavailable KELSEY PEREZ Admitting Unavailable SERGIO JARVIS Attending Unavailable SERGIO JARVIS Referring Unavailable LISANDRA JIMENEZ Primary Care Unavailable Benji Cantrell MD Unavailable Vance DE LA CRUZ, Andrito Moon Attending Unavailable Giedraitis , Andrius Moon Attending Unavailable Giedraitis , Andrius Moon Attending Unavailable Giedraitis , Andrius Moon Attending Unavailable Giedjoaquín DE LA CRUZ, Andrius Moon Attending Unavailable APLING, FLORENCE Duenas Attending Unavailable APLING, FLORENCE B Referring Unavailable TONY, LISANDRA F Attending Unavailable APLINGFLORENCE Attending Unavailable APLINGFLORENCE Attending Unavailable TONYLISANDRA Attending Unavailable LEIAYANETH KOTHARI Attending Unavailable TONY, [...] LISANDRA F Referring Unavailable LEIAYANETH Attending Unavailable TOYN, LISANDRA F Referring Unavailable LEIAYANETH Attending Unavailable TONY, LISANDRA F Referring Unavailable BOYCE, BELÉN Attending Unavailable TONY, LISANDRA F Referring Unavailable BOYCE, BELÉN Attending Unavailable APLING, FLORENCE B Referring Unavailable BOYCE, BELÉN Attending Unavailable TONY, LISANDRA F Referring Unavailable BOYCEBELÉN Attending Unavailable TONY, LISANDRA F Referring Unavailable BOYCE, BELÉN Attending Unavailable TONY, LISANDRA Kwong Referring Unavailable LEIA, YANETH Corea Attending Unavailable [...] LEIA, YANETH Corea Attending Unavailable TONY, LISANDRA Kwong Referring Unavailable TONY, LISANDRA Kwong Attending Unavailable DIANA GOMEZ Attending Unavailable TONY, LISANDRA Kwong Attending Unavailable TONY, LISANDRA Kwong Attending Unavailable TONY, LISANDRA Kwong Referring Unavailable Tony MD Lisandra Kwong Primary Care Provider [phone] Allergies Allergy Classification Reported Allergen(s) Allergy Type Date of Onset Reaction(s) Facility (20 sources) diphenhydrAMINE Drug Allergy 03-25-20 18 Unknown [facility] (20 sources) Sulfonamides (Antibiotic) Drug Allergy 09-02-19 Other (See Comments) [facility] (1 source) diphenhydrAMINE; Translations: [DIPHENHYDRAMINE HCL] Drug Allergy 03-25-20 18 [facility] (1 source) Sulfonamides (Antibiotic); Translations: [SULFA (SULFONAMIDE ANTIBIOTICS)] Propensity to adverse reactions to drug (disorder) 09-02-19 [facility] Medications Current Medications Medication Drug Class(es) Dates Sig (Normalized) Sig (Original) Acetaminophen (20 sources) Acetaminophen (T YLENOL 8 HOUR ARTHRITIS [...] Active alendronic acid 70 mg oral tablet (20 sources) Bisphosphonate Start: 03-03-2024 take 1 tablet [...] Active azelastine hydrochloride 0.5 mg/ml ophthalmic solution (20 sources) Histamine-1 Receptor Antagonist take 1 drop(s) [...] 0 Active benzonatate 100 mg oral capsule (8 sources) Non-narcotic Antitussive Start: 01-11-2024 take 1 capsule by mouth three times daily as needed benzonatate (Tessalon) 100 MG capsule Take 100 mg by mouth 3 (three) times a day as needed 01/11/2024 Active celecoxib 200 mg oral capsule (2 sources) Nonsteroidal Anti-inflammatory Drug Start: 08-19-2023 celecoxib (CeleBREX) 200 MG capsule 08/19/2023 Active docusate sodium 100 mg oral capsule (17 sources) take 1 capsule by mouth in the morning docusate sodium (Colace) 100 MG capsule Take 100 mg by mouth in the morning and 100 mg before bedtime. Active famotidine 20 mg oral tablet (20 sources) Histamine-2 Receptor Antagonist Start: 02-04-2023 End: 03-03-2024 take 1 tablet by mouth once daily famotidine (Pepcid) 20 MG tablet Indications: Gastroesophageal reflux disease without esophagitis Take 1 tablet (20 mg) by mouth Daily 90 tablet 11 03/03/2024 Active ferrous fumarate-vitamin C ER (Lenin-Sequeles 65-25) (6 sources) End: 06-10-2023 ferrous fumarate-vitamin C ER (Lenin-Sequeles 65-25) Take [...] sulfate 325 mg delayed release oral tablet (20 sources) Start: 04-25-2023 take 1 tablet by mouth at mealtime ferrous sulfate 325 (65 Fe) MG EC tablet TAKE 1 TABLET (325 MG) BY MOUTH IN THE MORNING. TAKE WITH MEALS. DO NOT CRUSH, CHEW, OR SPLIT.. 04/25/2023 Active fluticasone propionate 0.05 mg/actuat metered dose nasal spray (20 sources) Corticosteroid Start: 06-06-2023 take 2 spray(s) [...] Active metoprolol tartrate 25 mg oral tablet (20 sources) beta-Adrenergic Rosa Start: 01-01-2023 End: 02-16-2027 [...] tartrate 2 mg extended release oral capsule (20 sources) Cholinergic Muscarinic Antagonist Start: 03-03-2024 End: [...] (acquired), unspecified foot] Onset: 02-22-2022 10-10-2022 Chronic E Codes: Fall (2 sources) Fall; Translations: [Unspecified fall, initial encounter] 05-11-2024 Episodic Esophageal disorders (20 sources) Gastroesophageal reflux disease; Translations: [Gastro-esophageal reflux disease without esophagitis] Onset: 02-22-2022 10-10-2022 Chronic Fluid and electrolyte disorders (2 sources) Dehydration; Translations: [Dehydration] 01-10-2024 Episodic Genitourinary symptoms and ill-defined conditions (4 sources) Mixed urinary incontinence; Translations: [Mixed incontinence] 03-03-2024 Chronic Immunizations and screening for infectious disease (4 sources) Patient encounter status; Translations: [Encounter for immunization] 02-03-2024 Episodic Malaise and fatigue (1 source) Weakness; Translations: [Weakness] Onset: 01-10-2024 Episodic Osteoarthritis (20 sources) Osteoarthritis of left hip joint; Translations: [Unilateral primary osteoarthritis, left hip] Onset: 02-22-2022 Resolved: 12-30-2022 10-10-2022 Chronic Osteoporosis (20 sources) Senile osteoporosis; Translations: [Age-related osteoporosis without current pathological fracture] Onset: 02-22-2022 10-10-2022 Chronic Other acquired deformities (20 sources) Other secondary scoliosis, site unspecified; Translations: [Disorder of bone and cartilage, unspecified] Onset: 02-22-2022 10-10-2022 Chronic Other acquired deformities (2 sources) Scoliosis deformity of spine; Translations: [Scoliosis, unspecified] 06-05-2023 Chronic Other bone disease and musculoskeletal deformities (20 sources) Idiopathic scoliosis of thoracic and lumbar spine; Translations: [Other idiopathic scoliosis, thoracolumbar region] Onset: 02-22-2022 11-29-2022 Chronic Other bone disease and musculoskeletal deformities (2 sources) Osteopenia; Translations: [Other specified disorders of bone density and structure, multiple sites] 05-11-2024 Episodic Other congenital anomalies (20 sources) Porokeratosis; Translations: [Other specified congenital malformations of skin] Onset: 11-29-2022 11-29-2022 Chronic Other connective tissue disease (2 sources) History of total hip arthroplasty; Translations: [Presence of left artificial hip joint] 06-04-2023 Chronic Other connective tissue disease (2 sources) Other symptoms and signs involving the musculoskeletal system; Translations: [Other musculoskeletal symptoms referable to limbs] 05-11-2024 Episodic Other lower respiratory disease (2 sources) Cough; Translations: [Cough, unspecified type] 01-10-2024 Episodic Other upper respiratory disease (2 sources) Nasal congestion; Translations: [Nasal congestion] 01-10-2024 Episodic Other upper respiratory infections (1 source) Nasal discharge; Translations: [Postnasal drip] 06-06-2023 Episodic Spondylosis; intervertebral disc disorders; other back problems (20 sources) Lumbar arthritis; Translations: [Spondylosis without myelopathy or radiculopathy, lumbar region] Onset: 02-22-2022 10-10-2022 Chronic Unclassified (1 source) Confirmed Davis Virus Onset: 01-10-2024 Unclassified (1 source) Weakness - Generalized Onset: 01-10-2024 Viral infection (2 sources) COVID-19; Translations: [Disease caused by 2019-nCoV] Onset: 01-10-2024 Past or Other Problems Problem Classification Problem Date Documented Date Episodic/Chronic Acute posthemorrhagic anemia (20 sources) Anemia following acute postoperative blood loss; Translations: [Acute posthemorrhagic anemia] Onset: 12-30-2022 01-09-2023 Episodic Cardiac dysrhythmias (20 sources) Tachycardia; Translations: [Tachycardia, unspecified] Onset: 12-28-2022 01-09-2023 Episodic Mood disorders (17 sources) Mood disorders Onset: 06-10-2023 06-10-2023 Other connective tissue disease (1 source) History of repair of hip joint; Translations: [Presence of left artificial hip joint] Onset: 12-29-2022 Resolved: 12-30-2022 12-30-2022 Chronic Spondylosis; intervertebral disc disorders; other back problems (20 sources) Disorder of sacrum; Translations: [Sacrococcygeal disorders, not elsewhere classified] Onset: 04-05-2022 11-29-2022 Episodic Viral infection (12 sources) Disease caused by 2019-nCoV; Translations: [COVID-19] Onset: 01-10-2024 02-01-2024 Episodic Results Test Name Value Interpretation Reference Range Facility DEXA BONE DENSITYon 05-15-19 DEXA BONE DENSITY Examination: DEXA BONE DENSITY Clinical History: osteopenia Technique: Bone density study was performed. T score values for the right femoral neck, right forearm and left forearm were obtained. Comparison: 04/10/2022. Findings: Value for the right femoral neck is -1.1. Value for the right forearm is -3.3. Value for the left forearm is -3.0. Findings are compatible with osteoporosis with high increased fracture risk. Study was compared to the prior exam dated 04/10/2022 which demonstrates severe osteopenia with moderate to high increased fracture risk. Findings are mildly progressed compared to the prior exam. IMPRESSION: Impression: Findings compatible with osteoporosis with high increased fracture risk. Findings are mildly progressed compared to the prior exam. ELECTRONICALLY SIGNED BY: Renan Fernandez M.D. Normal Not Available CBC AND AUTO DIFFon 01-12-20 24 ABSOLUTE BASOPHIL 0.0 X10E9/L Normal 0.0-0.2 [facility] Comment on above: Performed By: #### C BCA, CMP, 42721-0 #### [facility] ([id number]) [address] [place] [address], [place] [address] ABSOLUTE NEUTROPHIL 5.0 X10E9/L Normal 1.5-6.6 [facility] Comment on above: Performed By: #### C BCA, CMP, 58482-7 #### [facility] ([id number]) [address] [place] [address] 84935 Basophils/100 WBC (Bld) 0.2 % Normal [facility] Comment on above: Performed By: #### Deanna BROWN CMP, #### [facility] ([id number]) [address] [place] [address] 45935 Eosinophils (Bld) [#/Vol] 0.1 10*3/uL Normal 0.0-0.4 [facility] Comment on above: Performed By: #### Deanna BROWN CMP, #### [facility] ([id number]) [address] [place] [address] 93387 Eosinophils/100 WBC (Bld) 1.2 % Normal [facility] Comment on above: Performed By: #### Deanna BROWN [facility], #### [facility] ([id number]) [address] [place] [address] 70123 Erythrocyte distribution width (RBC) [Ratio] 13.4 % Normal 11.5-15.0 [facility] Comment on above: Performed By: #### Deanna BROWN [facility], #### [facility] ([id number]) [address] [place] [address] 32347 Hematocrit (Bld) [Volume fraction] 39.6 % Normal 35-47 [facility] Comment on above: Performed By: #### Deanna BROWN CMP, #### [facility] ([id number]) [address] [place] [address] 71896 Hemoglobin (Bld) [Mass/Vol] 13.2 g/dL Normal 11.7-15.5 [facility] Comment on above: Performed By: #### Deanna BROWN CMP, #### [facility] ([id number]) [address] [place] [address] 22537 Lymphocytes (Bld) [#/Vol] 1.0 10*3/uL Normal 1.0-3.5 [facility] Comment on above: Performed By: #### Deanna BROWN CMP, #### [facility] ([id number]) [address] [place] [address] 76862 Lymphocytes/100 WBC (Bld) 14.2 % Normal [facility] Comment on above: Performed By: #### Deanna BROWN CMP, #### [facility] ([id number]) [address] [place] [address] 47272 MCH (RBC) [Entitic mass] 31.0 pg Normal 27-34 [facility] Comment on above: Performed By: #### Deanna BROWN CMP, #### [facility] ([id number]) [address] [place] [address] 39142 MCHC (RBC) [Mass/Vol] 33.4 g/dL Normal 32-36 [facility] Comment on above: Performed By: #### Deanna BROWN CMP, #### [facility] ([id number]) [address] [place] [address] 28030 MCV (RBC) [Entitic vol] 93 fL Normal 80-100 [facility] Comment on above: Performed By: #### Deanna BROWN CMP, #### [facility] ([id number]) [address] [place] [address] 36162 Monocytes (Bld) [#/Vol] 1.2 10*3/uL High 0-0.9 [facility] Comment on above: Performed By: #### Deanna BROWN CMP, #### [facility] ([id number]) [address] [place] [address] 09020 Monocytes/100 WBC (Bld) 16.8 % Normal [facility] Comment on above: Performed By: #### Deanna BROWN CMP, #### [facility] ([id number]) [address] [place] [address] 14191 Neutrophils/100 WBC (Bld) 67.6 % Normal [facility] Comment on above: Performed By: #### C BCA, CMP, 44594-0 #### [facility] ([id number]) [address] [place] [address] 90498 Platelet mean volume (Bld) [Entitic vol] 8.6 fL Normal 7-12 [facility] Comment on above: Performed By: #### C BCA, CMP, 09185-3 #### [facility] ([id number]) [address] [place] [address] 71293 Platelets (Bld) [#/Vol] 172 10*3/uL Normal 150-450 [facility] Comment on above: Performed By: #### C BCA, CMP, 74071-8 #### [facility] ([id number]) [address] [place] [address] 13938 RBC COUNT 4.26 X10E12/L Normal 3.80-5.20 [facility] Comment on above: Performed By: #### C BCA, CMP, 69247-7 #### [facility] ([id number]) [address] [place] [address] 77804 WBC (Bld) [#/Vol] 7.3 10*3/uL Normal 4.0-11.0 [facility] Comment on above: Performed By: #### C BCA, CMP, 67929-5 #### [facility] ([id number]) [address] [place] [address] 59292 COMPREHENSIVE METABOLIC PANE Cruzito 01-12-2024 Albumin [Mass/Vol] 3.8 g/dL Normal 3.2-5.3 [facility] Comment on above: Performed By: #### B MP, LIVR, CBCA #### [facility] ([id number]) [address] [place] [address] 27730 ALP [Catalytic activity/Vol] 49 U/L Normal 39-130 [facility] Comment on above: Performed By: #### B ANJUM LIVR, CBCA #### [facility] ([id number]) [address] [place] [address] 12225 ALT [Catalytic activity/Vol] 28 U/L Normal 0-31 [facility] Comment on above: Performed By: #### B ANJUM LIVR, CBCA #### [facility] ([id number]) [address] [place] [address] 47332 Anion gap [Moles/Vol] 9 mmol/L Normal 5-15 [facility] Comment on above: Performed By: #### B ANJUM LIVR, CBCA #### [facility] ([id number]) [address] [place] [address] 96091 AST [Catalytic activity/Vol] 31 U/L Normal 0-41 [facility] Comment on above: Performed By: #### B ANJUM LIVR, CBCA #### [facility] ([id number]) [address] [place] [address] 73449 Bilirubin [Mass/Vol] 0.4 mg/dL Normal 0.3-1.2 [facility] Comment on above: Performed By: #### B ANJUM LIVR, CBCA #### [facility] ([id number]) [address] [place] [address] 20113 Calcium [Mass/Vol] 8.5 mg/dL Normal 8.5-10.5 [facility] Comment on above: Performed By: #### B ANJUM, LIVR, CBCA #### [facility] ([id number]) [address] [place] [address] 54750 Chloride [Moles/Vol] 104 mmol/L Normal 98-109 [facility] Comment on above: Performed By: #### B DIPTI VALERO CBCRonen #### [facility] ([id number]) [address] [place] [address] 47028 CO2 [Moles/Vol] 25 mmol/L Normal 22-32 [facility] Comment on above: Performed By: #### B ANJUM LIVNaima CBCRonen #### [facility] ([id number]) [address] [place] [address] 60109 Creatinine [Mass/Vol] 0.79 mg/dL Normal 0.40-1.00 [facility] Comment on above: Result Comment: METH OD TRACEABLE TO IDMS STANDARD Performed By: #### B DIPTI VALERO CBCA #### [facility] ([id number]) [address] [place] [address] 23693 GFR/1.73 sq M.predicted among non-blacks MDRD (S/P/Bld) [Vol rate/Area] 77 mL/min/{1.73_m2} Normal >59 [facility] Comment on above: Result Comment: Reported eGFR is based on the CKD-EPI 2020 equation that does not use a race coefficient. Performed By: #### B ANJUM LIVANNIE Mcnamara #### [facility] ([id number]) [address] [place] [address] 85267 Glucose [Mass/Vol] 78 mg/dL Normal 65-99 [facility] Comment on above: Performed By: #### B DIPTI VALERO CBCRonen #### [facility] ([id number]) [address] [place] [address] 28473 Potassium [Moles/Vol] 3.7 mmol/L Normal 3.5-5.0 [facility] Comment on above: Performed By: #### B ANJUM LIVNaima CBCA #### [facility] ([id number]) [address] [place] [address] 26889 Protein [Mass/Vol] 6.8 g/dL Normal 6.0-8.0 [facility] Comment on above: Performed By: #### B ANJUM LIVR, CBCA #### [facility] ([id number]) [address] [place] [address] 77397 Sodium [Moles/Vol] 138 mmol/L Normal 134-146 [facility] Comment on above: Performed By: #### B ANJUM LIVR, CBCA #### [facility] ([id number]) [address] [place] [address] 82321 Urea nitrogen [Mass/Vol] 18 mg/dL Normal 5-27 [facility] Comment on above: Performed By: #### B ANJUM LIVR, CBCA #### [facility] ([id number]) [address] [place] [address] 90784 MAGNESIUMon 01-12-2024 Magnesium [Mass/Vol] 2.2 mg/dL Normal 1.8-2.6 [facility] Comment on above: Performed By: #### B ANJUM LIVR, CBCA #### [facility] ([id number]) [address] [place] [address] 88743 CBC AND AUTO DIFFon 01-11-20 24 ABSOLUTE BASOPHIL 0.0 X10E9/L Normal 0.0-0.2 [facility] Comment on above: Performed By: #### C KEVIN, CMP, 78219-5, THYR #### [facility] ([id number]) [address] [place] [address] 40120 ABSOLUTE NEUTROPHIL 4.2 X10E9/L Normal 1.5-6.6 [facility] Comment on above: Performed By: #### C BCA, CMP, , THYR #### [facility] ([id number]) [address] [place] [address] 64852 Basophils/100 WBC (Bld) 0.2 % Normal [facility] Comment on above: Performed By: #### C REDD BROWN, , THYR #### [facility] ([id number]) [address] [place] [address] 15286 Eosinophils (Bld) [#/Vol] 0.0 10*3/uL Normal 0.0-0.4 [facility] Comment on above: Performed By: #### C REDD BROWN, , THYR #### [facility] ([id number]) [address] [place] [address] 56904 Eosinophils/100 WBC (Bld) 0.2 % Normal [facility] Comment on above: Performed By: #### Deanna BROWN CMP, , THYR #### [facility] ([id number]) [address] [place] [address] 85258 Erythrocyte distribution width (RBC) [Ratio] 13.1 % Normal 11.5-15.0 [facility] Comment on above: Performed By: #### C KEVIN [facility], , THYR #### [facility] ([id number]) [address] [place] [address] 77196 Hematocrit (Bld) [Volume fraction] 37.4 % Normal 35-47 [facility] Comment on above: Performed By: #### Deanna BROWN CMP, , THYR #### [facility] ([id number]) [address] [place] [address] 90789 Hemoglobin (Bld) [Mass/Vol] 12.7 g/dL Normal 11.7-15.5 [facility] Comment on above: Performed By: #### C REDD BROWN, , THYR #### [facility] ([id number]) [address] [place] [address] 29588 Lymphocytes (Bld) [#/Vol] 0.9 10*3/uL Low 1.0-3.5 [facility] Comment on above: Performed By: #### C KEVIN CMP, , THYR #### [facility] ([id number]) [address] [place] [address] 38073 Lymphocytes/100 WBC (Bld) 13.6 % Normal [facility] Comment on above: Performed By: #### C KEVIN CMP, , THYR #### [facility] ([id number]) [address] [place] [address] 41980 MCH (RBC) [Entitic mass] 31.2 pg Normal 27-34 [facility] Comment on above: Performed By: #### C KEVIN CMP, , THYR #### [facility] ([id number]) [address] [place] [address] 95673 MCHC (RBC) [Mass/Vol] 33.9 g/dL Normal 32-36 [facility] Comment on above: Performed By: #### C KEVIN CMP, , THYR #### [facility] ([id number]) [address] [place] [address] 96364 MCV (RBC) [Entitic vol] 92 fL Normal 80-100 [facility] Comment on above: Performed By: #### Deanna BROWN CMP, , THYR #### [facility] ([id number]) [address] [place] [address] 12506 Monocytes (Bld) [#/Vol] 1.2 10*3/uL High 0-0.9 [facility] Comment on above: Performed By: #### C BCA, CMP, , THYR #### [facility] ([id number]) [address] [place] [address] 65723 Monocytes/100 WBC (Bld) 19.3 % Normal [facility] Comment on above: Performed By: #### C BCA, CMP, , THYR #### [facility] ([id number]) [address] [place] [address] 75943 Neutrophils/100 WBC (Bld) 66.7 % Normal [facility] Comment on above: Performed By: #### C BCA, CMP, , THYR #### [facility] ([id number]) [address] [place] [address] 53225 Platelet mean volume (Bld) [Entitic vol] 8.3 fL Normal 7-12 [facility] Comment on above: Performed By: #### C KEVIN, CMP, , THYR #### [facility] ([id number]) [address] [place] [address] 58541 Platelets (Bld) [#/Vol] 174 10*3/uL Normal 150-450 [facility] Comment on above: Performed By: #### C BCA, CMP, , THYR #### [facility] ([id number]) [address] [place] [address] 77195 RBC COUNT 4.06 X10E12/L Normal 3.80-5.20 [facility] Comment on above: Performed By: #### Deanna BCA, CMP, , THYR #### [facility] ([id number]) [address] [place] [address] 34027 WBC (Bld) [#/Vol] 6.3 10*3/uL Normal 4.0-11.0 [facility] Comment on above: Performed By: #### C BCA, CMP, , THYR #### [facility] ([id number]) [address] [place] [address] 81494 COMPREHENSIVE METABOLIC PANE Cruzito 01-11-2024 Albumin [Mass/Vol] 3.6 g/dL Normal 3.2-5.3 [facility] Comment on above: Performed By: #### C BCA, CMP, , THYR #### [facility] ([id number]) [address] [place] [address] 97424 ALP [Catalytic activity/Vol] 47 U/L Normal 39-130 [facility] Comment on above: Performed By: #### C BCA, CMP, , THYR #### [facility] ([id number]) [address] [place] [address] 69209 ALT [Catalytic activity/Vol] 27 U/L Normal 0-31 [facility] Comment on above: Performed By: #### C BCA, CMP, , THYR #### [facility] ([id number]) [address] [place] [address] 38004 Anion gap [Moles/Vol] 9 mmol/L Normal 5-15 [facility] Comment on above: Performed By: #### C BCA, CMP, , THYR #### [facility] ([id number]) [address] [place] [address] 68092 AST [Catalytic activity/Vol] 28 U/L Normal 0-41 [facility] Comment on above: Performed By: #### C BCA, CMP, , THYR #### [facility] ([id number]) [address] [place] [address] 54310 Bilirubin [Mass/Vol] 0.5 mg/dL Normal 0.3-1.2 [facility] Comment on above: Performed By: #### C BCA, CMP, , THYR #### [facility] ([id number]) [address] [place] [address] 31034 Calcium [Mass/Vol] 8.5 mg/dL Normal 8.5-10.5 [facility] Comment on above: Performed By: #### C BCA, CMP, , THYR #### [facility] ([id number]) [address] [place] [address] 87900 Chloride [Moles/Vol] 106 mmol/L Normal 98-109 [facility] Comment on above: Performed By: #### C REDD BROWN, , THYR #### [facility] ([id number]) [address] [place] [address] 03802 CO2 [Moles/Vol] 24 mmol/L Normal 22-32 [facility] Comment on above: Performed By: #### C REDD BROWN, , THYR #### [facility] ([id number]) [address] [place] [address] 21772 Creatinine [Mass/Vol] 0.74 mg/dL Normal 0.40-1.00 [facility] Comment on above: Result Comment: METH OD TRACEABLE TO IDMS STANDARD Performed By: #### C REDD BROWN, , THYR #### [facility] ([id number]) [address] [place] [address] 12877 GFR/1.73 sq M.predicted among non-blacks MDRD (S/P/Bld) [Vol rate/Area] 83 mL/min/{1.73_m2} Normal >59 [facility] Comment on above: Result Comment: Reported eGFR is based on the CKD-EPI 2020 equation that does not use a race coefficient. Performed By: #### C REDD BROWN, , THYR #### [facility] ([id number]) [address] [place] [address] 20875 Glucose [Mass/Vol] 91 mg/dL Normal 65-99 [facility] Comment on above: Performed By: #### C REDD BROWN, , THYR #### [facility] ([id number]) [address] [place] [address] 50148 Potassium [Moles/Vol] 3.7 mmol/L Normal 3.5-5.0 [facility] Comment on above: Performed By: #### C REDD BROWN, , THYR #### [facility] ([id number]) [address] [place] [address] 68801 Protein [Mass/Vol] 6.5 g/dL Normal 6.0-8.0 [facility] Comment on above: Performed By: #### C REDD BROWN, , THYR #### [facility] ([id number]) [address] [place] [address] 31709 Sodium [Moles/Vol] 139 mmol/L Normal 134-146 [facility] Comment on above: Performed By: #### C REDD BROWN, , THYR #### [facility] ([id number]) [address] [place] [address] 19549 Urea nitrogen [Mass/Vol] 15 mg/dL Normal 5-27 [facility] Comment on above: Performed By: #### C REDD BROWN, , THYR #### [facility] ([id number]) [address] [place] [address] 54893 MAGNESIUMon 01-11-2024 Magnesium [Mass/Vol] 2.6 mg/dL Normal 1.8-2.6 [facility] Comment on above: Performed By: #### 1 9123-9 #### [facility] ([id number]) [address] [place] [address] 13707 Magnesium [Mass/Vol] 1.8 mg/dL Normal 1.8-2.6 [facility] Comment on above: Performed By: #### C REDD BROWN, , THYR #### [facility] ([id number]) [address] [place] [address] 45543 THYROID PROFILEon 01-11-2024 Free T4 [Mass/Vol] 0.81 ng/dL Normal 0.61-1.60 [facility] Comment on above: Performed By: #### C BCA, CMP, 83539-9, THYR #### [facility] ([id number]) [address] [place] [address] 36493 TSH 0.64 uIU/mL Normal 0.49-4.67 [facility] Comment on above: Performed By: #### C BCA, CMP, , THYR #### [facility] ([id number]) [address] [place] [address] 97172 BASIC METABOLIC PANLon 01-09 Anion gap [Moles/Vol] 7 mmol/L Normal 5-15 [facility] Comment on above: Performed By: #### B MP, LIVR, CBCA #### [facility] ([id number]) [address] [place] [address] 86784 Calcium [Mass/Vol] 8.3 mg/dL Low 8.5-10.5 [facility] Comment on above: Performed By: #### B MP, LIVR, CBCA #### [facility] ([id number]) [address] [place] [address] 60506 Chloride [Moles/Vol] 106 mmol/L Normal 98-109 [facility] Comment on above: Performed By: #### B MP, LIVR, CBCA #### [facility] ([id number]) [address] [place] [address] 83920 CO2 [Moles/Vol] 22 mmol/L Normal 22-32 [facility] Comment on above: Performed By: #### B MP, LIVR, CBCA #### [facility] ([id number]) [address] [place] [address] 49809 Creatinine [Mass/Vol] 0.90 mg/dL Normal 0.40-1.00 [facility] Comment on above: Result Comment: METH OD TRACEABLE TO IDMS STANDARD Performed By: #### B ANJUM LIVR, CBCA #### [facility] ([id number]) [address] [place] [address] 32343 GFR/1.73 sq M.predicted among non-blacks MDRD (S/P/Bld) [Vol rate/Area] 65 mL/min/{1.73_m2} Normal >59 [facility] Comment on above: Result Comment: Reported eGFR is based on the CKD-EPI 2020 equation that does not use a race coefficient. Performed By: #### B ANJUM LIVR, CBCA #### [facility] ([id number]) [address] [place] [address] 31910 Glucose [Mass/Vol] 100 mg/dL High 65-99 [facility] Comment on above: Performed By: #### B ANJUM LIVR, CBCA #### [facility] ([id number]) [address] [place] [address] 20359 Potassium [Moles/Vol] 4.9 mmol/L Normal 3.5-5.0 [facility] Comment on above: Result Comment: SPEC IMEN HEMOLYZED, RESULTS INCREASED Performed By: #### B MP, LIVR, CBCA #### [facility] ([id number]) [address] [place] [address] 59980 Sodium [Moles/Vol] 135 mmol/L Normal 134-146 [facility] Comment on above: Performed By: #### B MP, LIVR, CBCA #### [facility] ([id number]) [address] [place] [address] 35635 Urea nitrogen [Mass/Vol] 19 mg/dL Normal 5-27 [facility] Comment on above: Performed By: #### B MP, LIVR, CBCA #### [facility] ([id number]) [address] [place] [address] 94577 CBC AND AUTO DIFFon 01-10-20 24 ABSOLUTE BASOPHIL 0.0 X10E9/L Normal 0.0-0.2 [facility] Comment on above: Performed By: #### B ANJUM LIVR, CBCA #### [facility] ([id number]) [address] [place] [address] 38385 ABSOLUTE NEUTROPHIL 5.2 X10E9/L Normal 1.5-6.6 [facility] Comment on above: Performed By: #### B ANJUM LIVR, CBCA #### [facility] ([id number]) [address] [place] [address] 21118 Basophils/100 WBC (Bld) 0.2 % Normal [facility] Comment on above: Performed By: #### B ANJUM LIVR, CBCA #### [facility] ([id number]) [address] [place] [address] 30406 Eosinophils (Bld) [#/Vol] 0.0 10*3/uL Normal 0.0-0.4 [facility] Comment on above: Performed By: #### B ANJUM LIVR, CBCA #### [facility] ([id number]) [address] [place] [address] 07616 Eosinophils/100 WBC (Bld) 0.2 % Normal [facility] Comment on above: Performed By: #### B ANJUM LIVR, CBCA #### [facility] ([id number]) [address] [place] [address] 29925 Erythrocyte distribution width (RBC) [Ratio] 13.2 % Normal 11.5-15.0 [facility] Comment on above: Performed By: #### B ANJUM LIVR, CBCA #### [facility] ([id number]) [address] [place] [address] 58459 Hematocrit (Bld) [Volume fraction] 36.7 % Normal 35-47 [facility] Comment on above: Performed By: #### B MP, LIVR, CBCA #### [facility] ([id number]) [address] [place] [address] 76109 Hemoglobin (Bld) [Mass/Vol] 12.5 g/dL Normal 11.7-15.5 [facility] Comment on above: Performed By: #### B MP, LIVR, CBCA #### [facility] ([id number]) [address] [place] [address] 40021 Lymphocytes (Bld) [#/Vol] 0.7 10*3/uL Low 1.0-3.5 [facility] Comment on above: Performed By: #### B MP, LIVR, CBCA #### [facility] ([id number]) [address] [place] [address] 79216 Lymphocytes/100 WBC (Bld) 9.9 % Normal [facility] Comment on above: Performed By: #### B MP, LIVR, CBCA #### [facility] ([id number]) [address] [place] [address] 99236 MCH (RBC) [Entitic mass] 31.4 pg Normal 27-34 [facility] Comment on above: Performed By: #### B MP, LIVR, CBCA #### [facility] ([id number]) [address] [place] [address] 65478 MCHC (RBC) [Mass/Vol] 34.0 g/dL Normal 32-36 [facility] Comment on above: Performed By: #### B MP, LIVR, CBCA #### [facility] ([id number]) [address] [place] [address] 85974 MCV (RBC) [Entitic vol] 92 fL Normal 80-100 [facility] Comment on above: Performed By: #### B MP, LIVR, CBCA #### [facility] ([id number]) [address] [place] [address] 79164 Monocytes (Bld) [#/Vol] 1.0 10*3/uL High 0-0.9 [facility] Comment on above: Performed By: #### B MP, LIVR, CBCA #### [facility] ([id number]) [address] [place] [address] 59832 Monocytes/100 WBC (Bld) 14.7 % Normal [facility] Comment on above: Performed By: #### B MP, LIVR, CBCA #### [facility] ([id number]) [address] [place] [address] 73012 Neutrophils/100 WBC (Bld) 75.0 % Normal [facility] Comment on above: Performed By: #### B MP, LIVR, CBCA #### [facility] ([id number]) [address] [place] [address] 01540 Platelet mean volume (Bld) [Entitic vol] 8.1 fL Normal 7-12 [facility] Comment on above: Performed By: #### B MP, LIVR, CBCA #### [facility] ([id number]) [address] [place] [address] 84775 Platelets (Bld) [#/Vol] 173 10*3/uL Normal 150-450 [facility] Comment on above: Performed By: #### B MP, LIVR, CBCA #### [facility] ([id number]) [address] [place] [address] 63495 RBC COUNT 3.97 X10E12/L Normal 3.80-5.20 [facility] Comment on above: Performed By: #### B MP, LIVR, CBCA #### [facility] ([id number]) [address] [place] [address] 04464 WBC (Bld) [#/Vol] 6.9 10*3/uL Normal 4.0-11.0 [facility] Comment on above: Performed By: #### B MP, LIVR, CBCA #### [facility] ([id number]) [address] [place] [address] 21479 LIVER PANELon 01-10-2024 Albumin [Mass/Vol] 3.9 g/dL Normal 3.2-5.3 [facility] Comment on above: Performed By: #### B MP, LIVR, CBCA #### [facility] ([id number]) [address] [place] [address] 67758 ALP [Catalytic activity/Vol] 47 U/L Normal 39-130 [facility] Comment on above: Performed By: #### B MP, LIVR, CBCA #### [facility] ([id number]) [address] [place] [address] 89263 ALT [Catalytic activity/Vol] 23 U/L Normal 0-31 [facility] Comment on above: Result Comment: SPEC IMEN HEMOLYZED, RESULTS INCREASED Performed By: #### B MP, LIVR, CBCA #### [facility] ([id number]) [address] [place] [address] 47109 AST [Catalytic activity/Vol] 44 U/L High 0-41 [facility] Comment on above: Result Comment: SPEC IMEN HEMOLYZED, RESULTS INCREASED Performed By: #### B MP, LIVR, CBCA #### [facility] ([id number]) [address] [place] [address] 43714 Bilirubin [Mass/Vol] 1.3 mg/dL High 0.3-1.2 [facility] Comment on above: Result Comment: RESU LTS QUESTIONABLE DUE TO HEMOLYSIS Performed By: #### B MP, LIVR, CBCA #### [facility] ([id number]) [address] [place] [address] 95826 Bilirubin.direct [Mass/Vol] 0.4 mg/dL Normal 0.0-0.4 [facility] Comment on above: Performed By: #### B MP, LIVR, CBCA #### [facility] ([id number]) [address] [facility], [place] [address] Protein [Mass/Vol] 7.0 g/dL Normal 6.0-8.0 [facility] Comment on above: Result Comment: SPEC IMEN HEMOLYZED, RESULTS INCREASED Performed By: #### B MP, LIVR, CBCA #### [facility] ([id number]) [address] [facility], [place] [address] Laboratory - Microbiology an d Antimicrobial susceptibilityon 01-10-2024 SARS-CoV-2 (COVID-19) RNA NATIVIDAD+probe Ql (Unsp spec) Positive [facility] No Panel Informationon 01-09 FLU A Negative [facility] FLU B Negative [facility] Interpretation and review of laboratory results [facility] CHEST 1 VWon 01-10-2024 SARS-CoV-2 (COVID-19) [...] Lockett MD on 01/10/2024 8:08 PM Normal [facility] Urinalysis macro (dipstick) panel (U)on 01-07-2024 Bilirubin, UA Negative Negative - 4(70) +++ mg/dL [facility] Blood, UA Negative Negative - 50 Dallin/mcL [facility] Clarity, UA Clear [facility] Color, UA Light Yellow [facility] Health[facility] are Glucose, UA Negative Negative - 2000(110) ++++ mg/dL [facility] Interpretation and review of laboratory results Normal [facility] Ketones, UA Negative Negative - 160(16) ++++ mg/dL [facility] Leukocytes, UA Negative Negative - 500+++ José/mcL [facility] Nitrite, UA Negative Negative - Positive [facility] pH, UA 6.0 5 - 9 [facility] Timeet e Protein, UA Negative Negative - 2000(20) ++++ mg/dL [facility] Spec Grav, UA 1.010 1 - 1.03 [facility] Urobilinogen, UA 0.2 0.2 - 12 mg/dL [facility] Lumbar spine 4 [facility] Result: June 05, 2023 x-rays AP lateral and lateral flexion-extension views of the lumbar spine demonstrate severe scoliosis apex to the right at the thoracolumbar junction of nearly 90 degrees curvature in the coronal plane. There are no definitive fractures identified. Impression: Severe scoliosis Corwin Lui D.O. [facility] XR Lumbar spine 4 ViewsOrder ed By: Andrea Lui on 06-06-2023 [facility] [email or web address] Work Phone: XR Lumbar spine 4 [facility] Radiology Study observation (narrative) [facility] SCREENING MAMMOGRAM W/JORDAN, BILATERAL*on 04-10-2021 SCREENING [...] VERY IMPORTANT TO YOUR HEALTH. THE CURRENT [employer] GUIDELINES RECOMMENDS ANNUAL MAMMOGRAPHY BEGINNING AT AGE 40 THIS FACILITY USES A REMINDER SYSTEM TO ENSURE ALL PATIENTS RECEIVE REMINDER NOTIFICATIONS AT THE APPROPRIATE TIME BASED ON THE RECOMMENDATIONS OF THIS EXAM. Report reported and signed by Filiberto Love on 04/10/2021 1211 Normal [facility] Contact Center Manager Vital Signs Date Time Vital Sign Value Performing Clinician Farhad rodriguez 05-11-2024 15:02-0500 Body height 153.7 cm Lisandra Jimenez MD Work Phone: [facility] 05-11-2024 15:02-0500 Body mass index (BMI) [Ratio] 21.36 kg/m2 Lisandra Jimenez MD Work Phone: [facility] 05-11-2024 15:02-0500 Body weight 50.44 kg Lisandra Jimenez MD Work Phone: [facility] 05-11-2024 15:02-0500 Diastolic blood pressure 64 mm[Hg] Lisandra Jimenez MD Work Phone: [facility] 05-11-2024 15:02-0500 Heart rate 65 /min Lisandra Jimenez MD Work Phone: [facility] 05-11-2024 15:02-0500 Respiratory rate 18 /min Lisandra Jimenez MD Work Phone: [facility] 05-11-2024 15:02-0500 SaO2% (BldA) [Mass fraction] 99 % Lisandra Jimenez MD Work Phone: [facility] 05-11-2024 15:02-0500 Systolic blood pressure 112 mm[Hg] Lisandra Jimenez MD Work Phone: [facility] 02-03-2024 09:06-0400 Body height 153.7 cm Lisandra Jimenez MD Work Phone: [facility] 02-03-2024 09:06-0400 Body mass index (BMI) [Ratio] 21.32 kg/m2 Lisandra Jimenez MD Work Phone: [facility] 02-03-2024 09:06-0400 Body weight 50.35 kg Lisandra Jimenez MD Work Phone: [facility] 02-03-2024 09:06-0400 Heart rate 83 /min Lisandra Jimenez MD Work Phone: [facility] 02-03-2024 09:06-0400 SaO2% (BldA) [Mass fraction] 94 % Lisandra Jimenez MD Work Phone: [facility] 01-10-2024 16:07-0400 Body height 154.9 cm Diana Gomez MD Work Phone: [facility] 01-10-2024 16:07-0400 Body temperature 98.8 [degF] Diana Gomez MD Work Phone: [facility] 01-10-2024 16:07-0400 Diastolic blood pressure 78 mm[Hg] Diana Gomez MD Work Phone: [facility] 01-10-2024 16:07-0400 Heart rate 122 /min Diana Gomez MD Work Phone: [facility] 01-10-2024 16:07-0400 SaO2% (BldA) [Mass fraction] 93 % Diana Gomez MD Work Phone: [facility] 01-10-2024 16:07-0400 Systolic blood pressure 122 mm[Hg] Diana Gomez MD Work Phone: [facility] 01-07-2024 13:02-0400 Body height 154.9 cm Lisandra Jimenez MD Work Phone: [facility] 01-07-2024 13:02-0400 Body mass index (BMI) [Ratio] 21.54 kg/m2 Lisandra Jimenez MD Work Phone: [facility] 01-07-2024 13:02-0400 Body weight 51.71 kg Lisandra Jimenez MD Work Phone: [facility] 01-07-2024 13:02-0400 Diastolic blood pressure 78 mm[Hg] Lisandra Jimenez MD Work Phone: [facility] 01-07-2024 13:02-0400 Heart rate 65 /min Lisandra Jimenez MD Work Phone: [facility] 01-07-2024 13:02-0400 Respiratory rate 18 /min Lisandra Jimenez MD Work Phone: [facility] 01-07-2024 13:02-0400 SaO2% (BldA) [Mass fraction] 97 % Lisandra Jimenez MD Work Phone: [facility] 01-07-2024 13:02-0400 Systolic blood pressure 122 mm[Hg] Lisandra Jimenez MD Work Phone: [facility] 06-10-2023 10:05-0500 Body height 154.9 cm Lisandra Jimenez MD Work Phone: [facility] 06-10-2023 10:05-0500 Body mass index (BMI) [Ratio] 20.6 kg/m2 Lisandra Jimenez MD Work Phone: [facility] 06-10-2023 10:05-0500 Body weight 49.44 kg Lisandra Jimenez MD Work Phone: [facility] 06-10-2023 10:05-0500 Diastolic blood pressure 68 mm[Hg] Lisandra Jimenez MD Work Phone: [facility] 06-10-2023 10:05-0500 Heart rate 76 /min Lisandra Jimenez MD Work Phone: [facility] 06-10-2023 10:05-0500 Respiratory rate 16 /min Lisandra Jimenez MD Work Phone: [facility] 06-10-2023 10:05-0500 Systolic blood pressure 130 mm[Hg] Lisandra Jimenez MD Work Phone: [facility] Healthcare Encounters Encounter Date Encounter Type Care Provider Facility Start: 05-15-2024 End: 05-15-2024 ambulatory LISANDRA JIMENEZ Not Available Start: 05-11-2024 End: 05-11-2024 Office outpatient visit 25 minutes Lisandra Jimenez MD Work Phone: [facility] Comment on above: Fall, initial encoun ter (Primary Dx); Osteopenia of multiple sites; Leg weakness, bilateral Start: 05-11-2024 End: 05-11-2024 ambulatory LISANDRA JIMENEZ Not Available Start: 05-11-2024 End: 05-11-2024 Bamboo flowsheet Lisandra Jimenez MD Work Phone: [facility] Start: 05-11-2024 End: 05-11-2024 Bamboo flowsheet Lisandra Jimenez MD Work Phone: [facility] Start: 05-05-2024 End: 05-05-2024 Telephone encounter Lisandra Jimenez MD Work Phone: [facility] Start: 03-30-2024 End: 03-30-2024 ambulatory Mere Woodard MD Facility:[facility] Start: 03-23-2024 End: 03-23-2024 ambulatory Mere Woodard MD Facility:[facility] Start: 03-03-2024 End: 03-03-2024 Refill Lisandra Jimenez MD Work Phone: [facility] Comment on above: Gastroesophageal ref lux disease without esophagitis; Mixed stress and urge urinary incontinence; Tachycardia; Age-related osteoporosis without current pathological fracture ([facility]) Start: 02-03-2024 End: 02-03-2024 Bamboo flowsheet Lisandra [...] immunization Start: 02-03-2024 End: 02-03-2024 ambulatory LISANDRA Varghese TONY Not Available Start: 01-10-2024 End: 01-13-2024 Emergency department patient visit SERGIO JARVIS [facility] Start: 01-10-2024 End: 01-12-2024 ambulatory LISANDRA Varghese MONACOER [facility] Start: 01-10-2024 End: 01-10-2024 ambulatory DIANA GOMEZ Not Available Start: 01-10-2024 End: 01-10-2024 Office outpatient visit 25 minutes Diana Gomez MD Work Phone: [facility] Comment on above: COVID-19 (Primary Dx ); Cough, unspecified type; Nasal congestion; Dehydration; Tachycardia Start: 01-10-2024 End: 01-10-2024 Bamboo flowsheet Diana Gomez MD Work Phone: [facility] Start: 01-10-2024 End: 01-10-2024 Bamboo flowsheet Diana Gomez MD Work Phone: [facility] Start: 01-07-2024 End: 01-07-2024 Bamboo flowsheet Lisandra Jimenez MD Work Phone: [facility] Start: 01-07-2024 End: 01-07-2024 Bamboo flowsheet Lisandra Jimenez MD Work Phone: [facility] Start: 01-07-2024 End: 01-07-2024 Office outpatient visit 15 minutes Lisandra Jimenez MD Work Phone: [facility] Comment on above: Chronic right-sided low back pain without sciatica (Primary Dx); Encounter for immunization; Urinary incontinence, unspecified type Start: 01-07-2024 End: 01-07-2024 ambulatory LISANDRA MONACOER Not Available Start: 12-12-2023 End: 12-12-2023 ambulatory [...] 08-19-2023 End: 08-19-2023 ambulatory Mere Woodard MD Facility:[facility] Start: 08-02-2023 Telephone encounter Myaa Villalobos RN [facility] Comment on above: Records, transfer to [facility] Start: 07-30-2023 End: 07-30-2023 ambulatory LISANDRA [...] loss; Age-related osteoporosis without current pathological fracture ([facility]) Start: 06-10-2023 End: 06-10-2023 Patient encounter status Lisandra Jimenez MD Work Phone: [facility] Work Phone: Start: 06-10-2023 End: 06-10-2023 ambulatory LISANDRA JIMENEZ Not Available Start: 06-06-2023 Refshani Yang Work Phone: [facility] Comment on above: Postnasal discharge Start: 06-05-2023 End: 06-05-2023 ambulatory [place]OR[place] B APLING Not Available Start: 06-05-2023 End: 06-05-2023 ambulatory FLORENCE ROBINS Not Available Start: 06-05-2023 End: 06-05-2023 Office outpatient visit 15 minutes Florence Duenas Josemanpreet [employer] Work Phone: [facility] Comment on above: S/P total left hip a rthroplasty (Primary Dx); Low back pain without sciatica, unspecified back pain laterality, unspecified chronicity; DDD (degenerative disc disease), lumbar; Scoliosis of thoracolumbar spine, unspecified scoliosis type Procedures Date Procedure Procedure Detail Performing Clinician Start: 01-10-2024 STATUS COVID-19/FLU Jayne Gomez MD Work Phone: Start: 01-07-2024 Urnls dip stick/tabl et rgnt non-auto w/o micrscp Lisandra Jimenez MD Work Phone: Start: 06-05-2023 Radex spine lumbosac ral minimum 4 views Florence Duenas Julienne [employer] Work Phone: Plan of Treatment Date Care Activity Detail Author Start: 06-10-2024 Medicare Annual Wellness (AWV) Medicare Annual Wellness (AWV) [facility] Start: 05-15-2024 End: 05-15-2024 Professional / ancillary services management 05/15/2024 10:00 AM EST Ancillary Procedure [facility] [address] [place] [address] [facility] Start: 05-11-2024 End: 05-11-2024 Patient encounter procedure [facility] Comment on above: Arrived Start: 05-11-2024 End: 05-11-2025 DXA Skeletal system Views for bone density DEXA bone density Imaging Routine Osteopenia of multiple sites Expected: 05/11/2024, Expires: 05/11/2025 [facility] Work Phone: Comment on above: Expected: 05/11/2024 , Expires: 05/11/2025 Start: 02-03-2024 End: 02-03-2024 Patient encounter procedure [facility] Comment on above: Arrived Start: 01-07-2024 End: 01-07-2024 Patient encounter procedure 01/07/2024 1:20 PM EDT Office Visit [facility] [address] [place] [id number] Lisandra Jimenez MD [address] [place] [address] Arrived [facility] Comment on above: Arrived Start: 01-02-2024 Adult BMI Screening Adult BMI Screen ing [facility] Start: 12-29-2023 Influenza vaccination [facility] Start: 12-29-2023 Tobacco Screening Tobacco Screening [facility] Start: 12-09-2023 End: 12-09-2023 Patient encounter procedure 12/09/2023 9:40 AM EDT Office Visit [facility] [address] [facility] [place] [address] Lisandra Jimenez MD [address] [facility] [place] [address] [facility] Start: 08-01-2023 Medicare Annual Wellness (AWV) Medicare Annual Wellness (AWV) [facility] Start: 07-30-2023 End: 07-30-2023 Patient encounter procedure 07/30/2023 9:00 AM EDT Office Visit [facility] [address] [place] [id number] Lisandra Jimenez MD [address] [place] [address] [facility] Start: 07-01-2023 End: 07-01-2023 Patient encounter procedure 07/01/2023 9:00 AM EST Office Visit [facility] [address] [place] [address] Florence Robins NP [address] [place] [address] [facility] Start: 06-26-2023 End: 06-26-2023 Patient encounter procedure 06/26/2023 10:00 AM EST Office Visit [facility] [address] [place] [address] Florence Robins, [employer] [address] [place] [address] [facility] Start: 06-10-2023 End: 06-10-2023 Patient encounter procedure [facility] Comment on above: Arrived Start: 02-10-2023 DTaP,Tdap and Td Vaccines (3 - Td or Tdap) DTaP,Tdap and Td Vaccines (3 - Td or Tdap) [facility] Start: 12-28-2022 COVID-19 Vaccine ( season) COVID-19 Vaccine ( season) [facility] Start: 2010 Fall Risk Screening Fall Risk Screen ing [facility] Start: 1957 Depression Screening Depression Scre ening [facility] Start: 1945 Medicare Annual Wellness Visit Medicare Annual Wellness Visit [facility] Immunizations Immunization Date Immunization Notes Care Provider Fa cility 02-03-2024 influenza, high dose seasonal, preservative-free Lisandra Jimenez MD Work Phone: [facility] 04-08-2023 RSV, recombinant, protein subunit RSVpreF, adjuvant reconstitu, 120mcg/0.5mL, PF (Arexvy) Lisandra Jimenez MD Work Phone: [facility] 01-28-2023 Influenza, High-dose Seasonal, Quadrivalent, Preservative Free Loli Rivera [employer] Work Phone: [facility] Work Phone: 01-28-2023 influenza virus vacc ine, unspecified formulation Lisandra Jimenez MD Work Phone: [facility] 02-06-2022 Influenza, High-dose Seasonal, Quadrivalent, Preservative Free Loli Rivera [employer] Work Phone: [facility] 02-06-2022 Moderna Bivalent Price ster Vaccination Loli Rivera [employer] Work Phone: [facility] 02-06-2022 Moderna SARS-CoV-2 50mcg/0.5mL Booster Loli Rivera [employer] Work Phone: [facility] 02-06-2022 influenza virus vacc ine, unspecified formulation Maya Villalobos RN [facility] 01-26-2021 Influenza, High-dose Seasonal, Quadrivalent, Preservative Free Loli Rivera [employer] Work Phone: [facility] 01-27-2020 Influenza, High-dose Seasonal, Quadrivalent, Preservative Free Loli Rivera [employer] Work Phone: [facility] 03-12-2019 zoster vaccine recombinant Loli Rivera [employer] Work Phone: [facility] 01-26-2019 zoster vaccine, live Loli W olf [employer] Work Phone: [facility] 01-22-2019 influenza, high dose seasonal, preservative-free Loli Rivera [employer]ER Work Phone: [facility] 01-22-2019 Influenza, High-dose Seasonal, Quadrivalent, Preservative Free Loli Rivera [employer] Work Phone: [facility] 01-22-2019 zoster vaccine recombinant Loli Rivera [employer]ER Work Phone: [facility] 01-20-2018 influenza, high dose seasonal, preservative-free Loli Rivera [employer] Work Phone: [facility] 01-20-2018 influenza, injectabl e, quadrivalent, preservative free Loli Rivera [employer] Work Phone: [facility] 01-18-2017 influenza, high dose seasonal, preservative-free Loli Rivera [employer] Work Phone: [facility] 01-18-2017 Influenza, High-dose Seasonal, Quadrivalent, Preservative Free Loli Rivera [employer] AND [employer]IC [employer]ER Work Phone: [facility] 01-17-2016 influenza, high dose seasonal, preservative-free Loli Rivera [employer] Work Phone: [facility] 01-17-2016 pneumococcal conjuga te vaccine, 13 valent Loli Rivera [employer]ER Work Phone: [facility] 01-12-2015 influenza, high dose seasonal, preservative-free Loli Rivera [employer] Work Phone: [facility] 01-11-2014 influenza, high dose seasonal, preservative-free Loli Rivera [employer]ER Work Phone: [facility] 02-10-2013 tetanus and diphther ia toxoids, adsorbed, preservative free, for adult use (5 Lf of tetanus toxoid and 2 Lf of diphtheria toxoid) Loli Rivera [employer] Work Phone: [facility] 02-10-2013 tetanus toxoid, redu jessica diphtheria toxoid, and acellular pertussis vaccine, adsorbed Loli Rivera [employer]IC [employer]ER Work Phone: [facility] 02-06-2013 seasonal influenza, intradermal, preservative free Loli Rivera [employer]ER Work Phone: [facility] 12-23-2012 zoster vaccine, live Loli W olf [employer] AND [employer]IC [employer]ER Work Phone: [facility] 12-12-2012 pneumococcal polysaccharide vaccine, 23 valent Loli Rivera [employer] Work Phone: [facility] 02-06-2012 influenza, seasonal, injectable, preservative free Loli Rivera [employer] AND [employer]ER Work Phone: [facility] 04-17-2004 influenza, seasonal, injectable Loli Rivera [employer]ER Work Phone: [facility] 04-27-2003 influenza, seasonal, injectable Loli Rivera [employer] AND [employer]IC [employer]ER Work Phone: [facility] 04-27-2002 influenza, seasonal, injectable Loli Rivera [employer]ICAL AND [employer]IC [employer]ER Work Phone: [facility] 04-01-2001 influenza, seasonal, injectable Loli Rivera E[employer] AND [employer]ER Work Phone: [facility] 03-08-1999 pneumococcal polysaccharide vaccine, 23 valent Loli Rivera E[employer]ICAL AND [employer]IC [employer]ER Work Phone: [facility] Payers Date Payer Category Payer Private Health Insurance 2021 Medicaid [employer] MEDICARE A DVANTAGE [id number] 2021 Medicare [id number] 2021 Medicare [id number] 1945 Unknown [id number] 2.16.840.1.576887.3.579.2. 1286 1945 Unknown [id number] 2.16.840.1.881185.3.579.2. 128 1945 Unknown [id number] 2.16.840.1.660167.3.579.2. 196 1945 Unknown [id number] 2.16.840.1.409469.3.579.2. 196 1945 Unknown [id number] 2.16.840.1.136737.3.579.2. 196 1945 Unknown [id number] 2.16.840.1.032826.3.579.2. 196 1945 Unknown [id number] 2.16.840.1.960345.3.579.2. 196 1945 Unknown [id number] 2.16.840.1.717084.3.579.2. 1259 1945 Unknown [id number] 2.16.840.1.572952.3.579.2. 1259 1945 Unknown [id number] 2.16.840.1.039848.3.579.2. 1259 1945 Unknown [id number] 2.16.840.1.419289.3.579.2. 1259 17-1946 Unknown [id number] 2.16.840.1.928940.3.579.2. 1258 1945 Unknown [id number] 2.16.840.1.983241.3.579.2. 1258 1945 Unknown [id number] 2.16.840.1.768994.3.579.2. 1258 1945 Unknown [id number] 2.16.840.1.831870.3.579.2. 1258 1945 Unknown [id number] 2.16.840.1.491389.3.579.2. 1258 1945 Unknown [id number] 2.16.840.1.891412.3.579.2. 1258 1945 Unknown [id number] 2.16.840.1.025822.3.579.2. 1258 1945 Unknown [id number] 2.16.840.1.768000.3.579.2. 1258 1945 Unknown [id number] 2.16.840.1.915562.3.579.2. 1258 1945 Unknown [id number] 2.16.840.1.370887.3.579.2. 1258 1945 Unknown [id number] 2.16.840.1.481897.3.579.2. 1258 1945 Unknown [id number] 2.16.840.1.798514.3.579.2. 1258 1945 Unknown [id number] 2.16.840.1.198385.3.579.2. 1258 1945 Unknown [id number] 2.16.840.1.598170.3.579.2. 1258 1945 Unknown [id number] 2.16.840.1.070969.3.579.2. 1258 1945 Unknown [id number] 2.16.840.1.301727.3.579.2. 125 1945 Unknown [id number] 2.16.840.1.828904.3.579.2. 1258 1945 Unknown [id number] 2.16.840.1.266256.3.579.2. 1258 1945 Unknown [id number] 2.16.840.1.852704.3.579.2. 1258 1945 Unknown [id number] 2.16.840.1.328952.3.579.2. 1258 1945 Unknown [id number] 2.16.840.1.618127.3.579.2. 1258 1945 Unknown [id number] 2.16.840.1.417750.3.579.2. 1258 1945 Unknown [id number] 2.16.840.1.952364.3.579.2. 1258 1945 Unknown [id number] 2.16.840.1.261370.3.579.2. 1258 1945 Unknown [id number] 2.16.840.1.258804.3.579.2. 1258 1945 Unknown [id number] 2.16.840.1.097914.3.579.2. 1258 1945 Unknown [id number] 2.16.840.1.465180.3.579.2. 1258 1945 Unknown [id number] 2.16.840.1.256010.3.579.2. 1258 1945 Unknown [id number] 2.16.840.1.103766.3.579.2. 1258 1945 Unknown [id number] 2.16.840.1.230690.3.579.2. 1258 1945 Unknown [id number] 2.16.840.1.176706.3.579.2. 1258 1945 Unknown [id number] 2.16.840.1.583142.3.579.2. 1259 1945 Unknown [id number] 2.16.840.1.803104.3.579.2. 9 1945 Unknown [id number] 2.16.840.1.269803.3.579.2. 9 1945 Unknown [id number] 2.16.840.1.632830.3.579.2. 9 1945 Unknown [id number] 2.16.840.1.020093.3.579.2. 1259 Social History Date Type Detail Facility Start: 05-24-2022 End: 10-10-2022 Tobacco smoking status IDIS Never smoked tobacco [facility] Start: 05-24-2022 End: 10-10-2022 Tobacco use and exposure Smokeless tobacco non-user [facility] Start: 06-05-2023 End: 05-11-2024 Alcohol intake Lifetime non-drinker (finding) [facility] Start: 06-09-2020 End: 12-10-2022 History of Social function [facility] Start: 06-09-2020 End: 12-10-2022 Humiliation, Afraid, Rape, and Kick questionnaire [HARK] [facility] Within the last year , have you been afraid of your partner or ex-partner? No [facility] Attends [employer] Not on file [facility] Do you belong to any clubs or organizations such as mandaen groups, unions, fraternal or athletic groups, or [...] Alcohol intake Current non-drinker of alcohol (finding) [facility] Medical Equipment Procedure Code Equipment Code Equipment Origin al Text Equipment Identifier Dates Lens Iol Ultrase rt 11.5d - [id number] - [id number] Start: 04-03-2018 Lens Iol Ultrase rt 13.0d - [id number] - [id number] Start: 08-28-2018 Head Fem 32mm 0m m Vrsy Cocr Hip Rpl [id number] - [id number] - [id number], [id number] FDA Start: 12-26-2022 Screw Bn 15mm 6. [address]mm [address] Hip Actb Trlg Strl Rpl [id number] - [id number] - [id number] Start: 12-26-2022 Goals Date Patient Goal Desired Activity /State Personal health goal Comment on above: Formatting of this n ote might be different from the original. Evaluation of progress towards goal: Home with support from friend (staying with pt) and [facility] Clinical Notes 06-05-2023 to 05-11-2024 Lisandra Jimenez MD - 05/11/2024 3:20 PM ESTTelephone Encounter - Lianne Roman - 05/05/2024 4:34 PM ESTTelephone Encounter - Lianne Roman - 05/05/2024 4:34 PM Yuliana Jimenez MD - 02/03/2024 9:00 AM EDT Note Date & Type Note Facility 05-11-2024 History of Present illness Narrative Images from the original note were not included. Nkiky Maria is a 78 y.o. female presents with chief complaint of Fall HPI: HPI History of Present Illness The patient presents for evaluation of a recent fall. She reports a recent incident of slipping from her couch onto the floor, which resulted in difficulty standing up. She had to maneuver herself across the floor to reach the couch for support to pull herself up. This is not an isolated incident, as she has experienced similar episodes in the past. She also mentions that her knee was not much help during this incident. She is uncertain if these incidents are related to her previous hip replacement surgery. She does not recall any specific slippery substance on the floor at the time of the fall. She reports no associated lightheadedness or dizziness. Her last physical therapy session was conducted in the summer of 2022, focusing on her back. She expresses interest in resuming physical therapy. She used to participate in [employer] classes, which included weightlifting, but discontinued this activity following her hip replacement surgery. She maintains an active lifestyle, attending a weight class twice a week and engaging in regular walking exercises. SUBJECTIVE: MEDICATIONS: Current Outpatient Medications Medication Instructions Acetaminophen (TYLENOL 8 HOUR ARTHRITIS PAIN PO) Tylenol Arthritis Pain alendronate (FOSAMAX) 70 mg, Oral, Every 7 days, Take in the morning with a full glass of water, on an empty stomach, and do not take anything else by mouth or lie down for the next 30 min. azelastine (Optivar) 0.05 % ophthalmic solution INSTILL 1 DROP INTO BOTH EYES TWICE A DAY Ophthalmic for 90 Days benzonatate (TESSALON) 100 mg, 3 times daily PRN celecoxib (CeleBREX) 200 MG capsule docusate sodium (COLACE) 100 mg, 2 times daily famotidine (PEPCID) 20 mg, [...] Daily, Do not crush, chew, or split. ALLERGIES: Allergies Allergen Reactions Diphenhydramine Unknown Sulfa Antibiotics Other Reaction(s): Unknown SURGICAL HISTORY: Past Surgical History: Procedure Laterality Date CATARACT EXTRACTION COLONOSCOPY 2013 CT ANGIOGRAM HEART CORONARY 12/28/2022 CT ANGIOGRAM TAVR 12/28/2022 TOTAL HIP ARTHROPLASTY Left 12/26/2022 Dr Lui FAMILY HISTORY: Family History Problem Relation Name Age of Onset Schizophrenia Mother Lupus Father Stroke Father SOCIAL HISTORY: Social History Tobacco Use Smoking status: Never Smokeless tobacco: Never Substance Use Topics Alcohol use: Never Drug use: Never Depression: Not at risk (06/10/2023) PHQ-2 PHQ-2 Score: 0 REVIEW OF SYMPTOMS: Review of Systems Respiratory: Negative. Cardiovascular: Negative. OBJECTIVE: Visit Vitals BP 112/64 (BP Location: Left arm, Patient Position: Sitting, BP Cuff Size: Adult) Pulse 65 Resp 18 Ht 5' 0.5 Wt 111 lb 3.2 oz SpO2 99% BMI 21.36 kg/m Smoking Status Never BSA 1.47 m [...] Assessment/Plan Problem List Items Addressed This Visit None Visit Diagnoses Fall, initial encounter - Primary Osteopenia of multiple sites Relevant Orders DEXA bone density Leg weakness, bilateral Assessment & Plan 1. Recent fall. She reported a recent fall where she slipped off the couch and had difficulty getting up from the floor. She does not experience lightheadedness or dizziness. She is advised to consider using an alert button for emergencies and to keep her cell phone with her at all times. A referral for physical therapy has been initiated to help her improve mobility and strength, with a specific goal to be able to get off the floor independently. 2. Preosteoporosis. Her last bone density test was conducted on 04/17/2022, indicating a preosteoporotic stage. She is encouraged to engage in weight-bearing exercises, such as resuming her [employer] classes, to stimulate bone health. A bone density test will be scheduled to monitor her condition. PROCEDURE The patient underwent hip replacement surgery approximately 2 years ago. documented in this encounter [facility] 05-05-2024 Telephone encounter Note Voicemail left at 3:55 pm. I left her a vm to schedule an appt. Va, this is Nerisnow Maria for 45. I am calling to talk to Dr. Lemons or Dr. Rivera or whatever. I fell off of the couch is kind of slid down and and then I had I had trouble getting up like, I do not have the strength in my legs or Whatever, so I scooted myself up to the 2 the couch to to sit then, so I was not on the floor. So I just I am not sure why that is happening. So it is [phone] Eckerty Maria [id number]. Thank you very much. Peter lemus. [facility] 05-05-2024 Miscellaneous Notes Voicemail left at 3:55 pm. I left her a vm to schedule an appt. Va, this is Nikky Torreskinson for 45. I am calling to talk to Dr. Lemons or Dr. Rivera or whatever. I fell off of the couch is kind of slid down and and then I had I had trouble getting up like, I do not have the strength in my legs or Whatever, so I scooted myself up to the 2 the couch to to sit then, so I was not on the floor. So I just I am not sure why that is happening. So it is [phone] Eckerty Maria [id number]. Thank you very much. Peter lemus. documented in this encounter [facility] 03-03-2024 Telephone encounter Note Approvals with refills [facility] 03-03-2024 Miscellaneous Notes Approvals with refills documented in this encounter [facility] 02-03-2024 History of Present illness Narrative Images from the original note were not included. Nikky Maria is a 78 y.o. female presents [...] m Physical Exam ASSESSMENT AND PLAN: Assessment/Plan Nikky Maria is a 78 y.o. female presents [...] challenging. She also consumes iced coffee from [employer]. SUBJECTIVE: MEDICATIONS: Current Outpatient Medications Medication Instructions [...] good preventative measure. documented in this encounter [facility] 01-10-2024 History of Present illness Narrative Images from the original note were not included. Geronimo Maria is a 78 y.o. female presents with chief complaint of Fatigue HPI: Patient is feeling weak, dizzy, coughing, and congestion that started a couple days ago. Patient is not aware of being around anyone that is sick. Has just been taking tylenol that has slightly helped. Fatigue Associated symptoms include congestion, coughing and fatigue. Pertinent negatives include no chills or sore throat. History of Present Illness The patient presents for evaluation of cough. She reports a persistent cough and general malaise. She denies experiencing any pain or burning sensation during urination, and her urinary frequency remains normal. She also denies any gastrointestinal symptoms such as diarrhea or vomiting. She has not had a fever or chills. Her appetite and fluid intake are slightly reduced. She lives independently and manages her own household tasks, including cooking. She is uncertain about the duration of her illness. She thinks she provided a urine sample yesterday, but she did not. SUBJECTIVE: MEDICATIONS: ALLERGIES Current Outpatient Medications Medication Instructions Acetaminophen (TYLENOL [...] Daily, Do not crush, chew, or split. Allergies Allergen Reactions Diphenhydramine Unknown Sulfa Antibiotics Other Reaction(s): Unknown PAST MEDICAL HISTORY: SOCIAL HISTORY SURGICAL HISTORY: Past Medical History: Diagnosis Date calcium deposit on eye lids CNH (chondrodermatitis nodularis helicis) COVID-19 GERD (gastroesophageal reflux disease) Hypoglycemia Osteoporosis (CMS/HCC) Rotator cuff Toe fracture R 5th toe Wrist fracture, right Social History Tobacco Use Smoking status: Never Smokeless tobacco: Never Substance Use Topics Alcohol use: Never Drug use: Never Past Surgical History: Procedure Laterality Date CATARACT EXTRACTION COLONOSCOPY 2014 CT ANGIOGRAM HEART CORONARY 12/28/2022 CT ANGIOGRAM TAVR 12/28/2022 TOTAL HIP ARTHROPLASTY Left 12/26/2022 Dr Lui REVIEW OF SYMPTOMS: Review of Systems Constitutional: Positive for fatigue. Negative for chills and hot flashes. HENT: Positive for congestion and sneezing. Negative for ear pain, postnasal drip, sinus pressure, sore throat, tinnitus, trouble swallowing and voice change. Respiratory: Positive for cough. Negative for shortness of breath and wheezing. All other systems reviewed and are negative. OBJECTIVE: Vitals: 01/10/24 1607 Temp: 98.8 F Physical Exam Vitals and nursing note reviewed. HENT: Head: Normocephalic and atraumatic. Mouth/Throat: Mouth: Mucous membranes are dry. Cardiovascular: Rate and Rhythm: Regular rhythm. Tachycardia present. Pulses: Normal pulses. Heart sounds: Normal heart sounds. Pulmonary: Effort: Pulmonary effort is normal. Breath sounds: Normal breath sounds. Musculoskeletal: Cervical back: Normal range of motion and neck supple. Skin: Comments: Dry Neurological: Mental Status: She is easily aroused. She is lethargic. ASSESSMENT AND PLAN: Assessment & Plan 1. Cough. The patient has been experiencing a cough with no other symptoms such as fever, chills, diarrhea, or vomiting. She reports feeling a bit tired and has not been eating and drinking as much as she should. A swab test will be conducted to check for potential COVID-19 infection. If the COVID-19 test is positive, appropriate isolation and treatment measures will be discussed. Assessment/Plan Problem List Items Addressed This Visit Tachycardia Other Visit Diagnoses COVID-19 - Primary Cough, unspecified type Relevant Orders STATUS COVID-19/FLU (Completed) Nasal congestion Relevant Orders STATUS COVID-19/FLU (Completed) Dehydration Per caregiver/neighbor, she is usually very alert. During my exam, she is falling asleep and spacing out. She is forgetting my questions before she can answer them and is having trouble following simple commands. With her change in mental status, COVID diagnosis, tachycardia, she is not safe to go home. Disucssed with her and caregiver, and they are agreeable to go to hospital. Report called to Dr Carrera. No follow-ups on file. documented in this encounter [facility] 01-07-2024 History of Present illness Narrative Nikky Maria is a 78 y.o. female presents with chief complaint of Urinary Incontinence (Patient presents today for urinary incontinence. Patient states that it started about 1 week ago and she can control the urge to go to the bathroom in the morning. ) HPI: HPI History of Present Illness SUBJECTIVE: MEDICATIONS: Current Outpatient Medications Medication Instructions [...] Daily, Do not crush, chew, or split. ALLERGIES: Allergies Allergen Reactions Diphenhydramine Unknown Sulfa Antibiotics Other Reaction(s): Unknown SURGICAL HISTORY: Past Surgical History: Procedure Laterality Date CATARACT EXTRACTION COLONOSCOPY 2013 CT ANGIOGRAM HEART CORONARY 12/28/2022 CT ANGIOGRAM TAVR 12/28/2022 TOTAL HIP ARTHROPLASTY Left 12/26/2022 Dr Lui FAMILY HISTORY: Family History Problem Relation Name Age of Onset Schizophrenia Mother Lupus Father Stroke Father SOCIAL HISTORY: Social History Tobacco Use Smoking status: Never Smokeless tobacco: Never Substance Use Topics Alcohol use: Never Drug use: Never Depression: Not at risk (06/10/2023) PHQ-2 PHQ-2 Score: 0 REVIEW OF SYMPTOMS: Review of Systems OBJECTIVE: Visit Vitals BP 122/78 (BP Location: Right arm, Patient Position: Sitting, BP Cuff Size: Adult) Pulse 65 Resp 18 Ht 5' 1 Wt 114 lb SpO2 97% BMI 21.54 kg/m Smoking Status Never BSA 1.49 m Physical Exam Constitutional: Appearance: Normal appearance. She is normal weight. Musculoskeletal: Cervical back: Normal range of motion and neck supple. Skin: General: Skin is warm and dry. Neurological: General: No focal deficit present. Mental Status: She is alert and oriented to person, place, and time. Mental status is at baseline. Psychiatric: Mood and Affect: Mood normal. Behavior: Behavior normal. Thought Content: Thought content normal. Judgment: Judgment normal. ASSESSMENT AND PLAN: Assessment/Plan Problem List Items Addressed This Visit Low back pain without sciatica - Primary Other Visit Diagnoses Encounter for immunization Relevant Orders Flu vaccine, high dose seasonal, PF (EQA611) (Fluzone High Dose) Urinary incontinence, unspecified type Relevant Orders POCT Urinalysis dipstick D.c sugary ice coffees documented in this encounter [facility] 08-02-2023 Miscellaneous Notes Received a phone call from [facility] for patient records to be transferred. documented in this encounter [facility] 08-02-2023 Telephone encounter Note Received a phone call from [facility] for patient records to be transferred. [facility] 06-11-2023 Telephone encounter Note PT Calling to check status of this request, unsure as how to explain the denial of the refill. [facility] 06-11-2023 Miscellaneous Notes PT Calling to check status of this request, unsure as how to explain the denial of the refill. Medication refused due to failing protocol. Requested Prescriptions Pending Prescriptions Disp Refills methylPREDNISolone (Medrol Dospak) 4 MG tablets 21 tablet Sig: Follow schedule on package instructions There is no refill protocol information for this order documented in this encounter [facility] 06-11-2023 Telephone encounter Note Medication refused due to failing protocol. Requested Prescriptions Pending Prescriptions Disp Refills methylPREDNISolone (Medrol Dospak) 4 MG tablets 21 tablet Sig: Follow schedule on package instructions There is no refill protocol information for this order [facility] 06-10-2023 History of Present illness Narrative Nikky [...] Diagnosis: No Ambulatory Aid: Crutches/cane/walker (while at , after her hip surgery) Intravenous Therapy/Heparin Lock: [...] Recheck in 6months documented in this encounter [facility] 06-05-2023 History of Present illness Narrative [...] anemia Age-related osteoporosis without current pathological fracture (CMS/[facility]) [facility] [...] [facility]* Diagnosis COVID-19- Primary Cough, unspecified type Nasal congestion Other diseases of nasal cavity and sinuses Dehydration Tachycardia Unspecified tachycardia [facility] Diagnosis Chronic right-sided low back pain without sciatica- Primary Encounter for immunization Urinary incontinence, unspecified type [facility]* Diagnosis Fall, initial encounter- Primary Osteopenia of multiple sites Leg weakness, bilateral Muscle weakness (generalized) documented in this encounter [facility]ructionsNot on filedocumented in this encounter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 Living Will 01/17/2023 11:55 AM Durable Power of Linotype Mechanic 01/17/2023 11:54 AM Latest Code Status on File Code Status Date Activated Date Inactivated Comments Full Code 12/28/2022 6:14 PM 01/01/2023 3:49 PM Code Status History Code Status Date Activated Date Inactivated Comments Full Code 12/26/2022 10:18 AM 12/27/2022 7:36 PM Additional Source Comments INFORMATION SOURCE (unrecogn ized section and content) DATE CREATED AUTHOR 04/10/2021 [facility] dical Specialist DATE CREATED AUTHOR AUTHOR'S ORGANIZ ATION 01/13/2024 [facility] DATE CREATED AUTHOR AUTHOR'S ORGANIZ ATION 04/03/2024 [facility] DATE CREATED AUTHOR AUTHOR'S ORGANIZ ATION 05/19/2024 [facility] dical Specialists EPIC Reason for Visit (unrecogniz ed section and content) Reason Comments Med Refill Reason Comments Medicare Annual Wellness Visit [facility] Reason Comments Follow-up Patient [facility]. She was in the ER in December and was dx with Covid. She is doing better now. Would like to get her flu shot today. No refills needed today. No issues with her medications at this time. Reason Comments Fatigue Reason Comments Urinary Incontinence Patient presents to day for urinary incontinence. Patient states that it started about 1 week ago and she can control the urge to go to the bathroom in the morning. Reason Comments Fall Reason Onset Date Comments Records, transfer to [facility] 08/02/2023 Care Teams (unrecognized sec tion and content) Corporate Risk Analyst Relationship Specialty Start Date End Date Benji Cantrell MD [address] [facility] [address] [place] [address] PCP - [employer] 04/29/22 Lisandra Jimenez MD [address] [place] [address] PCP - General Family Medicine 09/10/22 Corporate Risk Analyst Relationship Specialty Start Date End Date Benji Cantrell MD [address] [facility] [address] [place] [address] PCP - [employer] 04/29/22 Lisandra Jimenez MD [address] [place] [address] PCP - General Family Medicine 09/10/22 Corporate Risk Analyst Relationship Specialty Start Date End Date Benji Cantrell MD [address] [facility] [address] [place] [address] PCP - [employer] 04/29/22 Lisandra Jimenez MD [address] [facility] [place] [address] PCP - General Family Medicine 09/10/22 Corporate Risk Analyst Relationship Specialty Start Date End Date Benji Cantrell MD [address] [facility] [place] [address] PCP - [employer] 04/29/22 Lisandra Jimenez MD [address] [facility] [place] [address] PCP - General Family Medicine 09/10/22 Corporate Risk Analyst Relationship Specialty Start Date End Date Benji Cantrell MD [address] [facility] [address] [place] [address] PCP - [employer] 04/29/22 Lisandra Jimenez MD [address] [facility] [place] [address] PCP - General Family Medicine 09/10/22 Corporate Risk Analyst Relationship Specialty Start Date End Date Benji Cantrell MD [address] [facility] [address] [place] [address] PCP - [employer] 04/29/21 Lisandra Jimenez MD [address] [facility] [place] [address] PCP - General Family Medicine 09/10/22 Corporate Risk Analyst Relationship Specialty Start Date End Date Benji Cantrell MD [address] [place] [address] PCP - [employer] 04/29/21 Lisandra Jimenez MD [address] [place] [facility] [address] PCP - General Family Medicine 09/10/22 Corporate Risk Analyst Relationship Specialty Start Date End Date Benji Cantrell MD [address] [facility] [address] [place] [address] PCP - [employer] 04/29/21 Lisandra Jimenez MD [address] [place] [facility] [address] PCP - General Family Medicine 09/10/22 Corporate Risk Analyst Relationship Specialty Start Date End Date Benji Cantrell MD [address] [facility] [address] [place] [address] PCP - [employer] 04/29/21 Lisandra Jimenez MD [address] [place] [address] PCP - General Family Medicine 09/10/22 Corporate Risk Analyst Relationship Specialty Start Date End Date Benji Cantrell MD [address] [facility] [address] [place] [address] PCP - [employer] 04/29/21 Lisandra Jimenez MD [address] [place] [address] PCP - General Family Medicine 09/10/22 Corporate Risk Analyst Relationship Specialty Start Date End Date Benji Cantrell MD [address] [place] [address] PCP - [employer] 04/29/21 Lisandra Jimenez MD [address] [place] [facility] [address] PCP - General Family Medicine 09/10/22 Corporate Risk Analyst Relationship Specialty Start Date End Date Benji Cantrell MD [address] [place] [address] PCP - [employer] 04/29/21 Lisandra Jimenez MD [address] [place] [facility] [place] [address] PCP - General Family Medicine 09/10/22 Corporate Risk Analyst Relationship Specialty Start Date End Date Benji Cantrell MD [address] [place] [address] PCP - [employer] 04/29/21 Lisandra Jimenez MD [address] [place] [facility] [place] [address] PCP - General Family Medicine 09/10/22 Corporate Risk Analyst Relationship Specialty Start Date End Date Benji Cantrell MD [address] [place] [address] PCP - [employer] 04/29/21 Lisandra Jimenez MD [address] [place] [facility] [place] [address] PCP - General Family Medicine 09/10/22 Corporate Risk Analyst Relationship Specialty Start Date End Date Benji Cantrell MD [address] [place] [address] PCP - [employer] 04/29/21 Lisandra Jimenez MD [address] [facility] [place] [address] PCP - General Family Medicine 09/10/22 Corporate Risk Analyst Relationship Specialty Start Date End Date Lisandra Jimenez MD [address] [facility] [place], [place] [id number] PCP - General Family Medicine 11/12/16 FOR [...] BE BASED ON THE PRIMARY CLINICAL RECORDS. [employer] provides no warranty or guarantee of the accuracy or completeness of information in this document.
--- NOTE | 2024-07-09 09:58 | PM.CN ---
Consult Note: HPI Data of Consult Patient: known to practice within the last 3 years Requesting Physician: Teresa Lynn NP Primary Care Provider: YOLA HUI Consult Narrative Reason for consult: left low back, hip pain Narrative: 78yof who presents for assessment. Worsening left low back and hip pain. Continues in a provider directed home exercise program >6 weeks, without benefit. Uses tylenol as needed. Denies adverse med side effects. Pt noticing increased pain over the last few weeks, pain today 3/10 increasing to 6/10 with activity. previous left SIJ injection provided >50% improvement for 3 months. cc:: CC: Teresa Lynn NP Review of Systems ROS Status of ROS 10 or more systems reviewed and unremarkable except as noted in history and below Musculoskeletal Reports: joint pain PFSH PFSH Medical History (Updated 10/10/23 @ 09:33 by Teresa Lynn NP) Low back pain ?M54.50 - Low back pain, unspecified (ICD-10) Surgical History History of hip replacement ?Z96.649 - Presence of unspecified artificial hip joint (ICD-10) Meds Home Medications and Allergies Home Medications ?Medication ?Instructions ?Recorded ?Confirmed ?Type acetaminophen 650 mg 650 mg PO Q12H PRN pain 08/19/23 09/30/23 History tablet,extended release (Tylenol Arthritis Pain) alendronate 70 mg tablet 70 mg PO QWEEK 08/19/23 09/30/23 History famotidine 20 mg tablet 20 mg PO DAILY 08/19/23 09/30/23 History ferrous sulfate 325 mg (65 mg 325 mg PO DAILY 08/19/23 09/30/23 History iron) tablet (Feosol) metoprolol succinate 25 mg 25 mg PO BID 08/19/23 09/30/23 History tablet,extended release 24 hr tolterodine 2 mg tablet 2 mg PO DAILY 08/19/23 09/30/23 History lidocaine 5 % topical patch 1 patch topical DAILY #30 ea 10/10/23 Rx Allergies Allergy/AdvReac Type Severity Reaction Status Date / Time No Known Drug Allergies Allergy Verified 09/30/23 10:27 Exam Constitutional Documenting provider has reviewed patient's vital signs: yes Common normals: no apparent distress, oriented x3, healthy appearing, alert and well nourished General appearance: cooperative HENMT Common normals: normocephalic, hearing grossly normal bilaterally and moist oral mucous membranes Head and scalp: normocephalic Eye Common normals: PERRL Pupil: PERRL Neck & C-Spine Common normals: full ROM General: normal visual inspection Chest Common normals: inspection of chest normal Respiratory Common normals: normal respiratory effort, no retractions and no use of accessory muscles Back & Pelvis Lumbar spine/lower back: ROM not limited, no pain with ROM and no lumbar spinal tenderness Sacroiliac joints: SI joint(s) abnormal Other: left sij positive leeann(patricks), gaenslens, thigh thrust, compression test Neuro Common normals: oriented x3, CN's II-XII intact bilaterally, moves all extremities, no focal motor deficits, no sensory deficits noted and deep tendon reflexes 2+ bilaterally Sensorium/orientation: alert Motor exam: strength 5/5 throughout and no movement abnormalities noted Psych Common normals: mental status grossly normal, thought process normal, cooperative, affect normal, speech normal and activity/motor behavior normal Speech: normal speech Thought process: normal thought process Results Additional Findings Additional findings: If on a controlled substance or opioids, I have checked an [place]AR[place] report on this patient and there are no aberrancies noted in the prescribing history.??If on a controlled substance or opioid a drug screen was completed and reviewed within the last year, and if there has not been a drug screen completed we ordered one today to monitor higher risk, state monitored pain medication use. As part of providing excellent, safe, comprehensive care, the following was completed at our patient's visit: 1. A medication reconciliation and review to ensure accurate knowledge of current/active medications, including asking our patients to inform us about any [id number] medications or herbal remedies/nutritional supplements/alternative remedies. 2. A review to specifically ensure our patients have had annual screening for screening for depression, screening for tobacco use, and screening for unhealthy alcohol use. For concerning screenings had a discussion with the patient, provided patient education, and recommended follow-up with primary care provider when appropriate. If patient noted with a risk of falling, they received education on strength, gait, and balance training to prevent future risk of falling. Portions of this note may have been carried over from the previous visit and updated as appropriate. Please note this office utilizes paper charting in addition to the electronic medical record. A list of current medications, vitals, and PMH is available there as the clinical staff outside of myself do not have access to [email or web address]) charting during the clinic day operations. As part of providing quality comprehensive care the current medications, vitals, and PMH were reviewed in the paper chart. Assessment and Plan Assessment and Plan (1) Sacroiliitis: Assessment and Plan: 03/30/24 left SIJ >50% improvement for 3 months Plan repeat left SIJ injection under fluoroscopy continue current medications continue HEP as tolerated f/u 2 weeks after SIJ injection
== END 2024-07-09 09:38 | disposition home or self-care (01) ==
LOC: PM 09:37
PROVIDERS: PCP Family Medicine; Visit Provider Nurse Practitioner
DX: M46.1 Sacroiliitis, not elsewhere classified (principal)
CPT/HCPCS: G0463

== ENCOUNTER 2024-08-10 11:04 | Day surgery (SDC) | payer MEDICARE, SELFPAY ==
[2024-08-10 11:13] VITALS: BP 146/80; PULSE 73; TEMP 36.3; O2SAT 98
--- OUTSIDE RECORDS SUMMARY | 2024-08-10 11:21 | XMS_ITS | CCD ---
Author Organization [facility] CliniSyms Care Team Providers Care Wire Setter Name Role Phone Benji Cantrell MD Unavailable Lisandra Jimenez MD Primary Care Provider [phone] LISANDRA JIMENEZ Primary Care Unavailable SERGIO JARVIS Attending Unavailable KELSEY PEREZ Admitting Unavailable SERGIO JARVIS Attending Unavailable SERGIO JARVIS Referring Unavailable LISANDRA JIMENEZ Primary Care Unavailable Benji Cantrell MD Unavailable [phone] Vance DE LA CRUZ, Andrito Moon Attending [...] F Referring Unavailable BOYCE, BELÉN Attending Unavailable OTNY, LISANDRA F Referring Unavailable LEIA, YANETH Corea Attending Unavailable TONY, LISANDRA Kwong Referring Unavailable TONY, LISANDRA Kwong Attending Unavailable DIANA GOMEZ Attending Unavailable TONY, LISANDRA Kwong Attending Unavailable TONY, LISANDRA Kwong Attending Unavailable TONY, LISANDRA Kwong Referring Unavailable Tony MD Lisandra Kwong Primary Care Provider [phone] Allergies Allergy Classification Reported Allergen(s) Allergy Type Date of Onset Reaction(s) Facility (20 sources) diphenhydrAMINE Drug Allergy 03-25-20 18 Unknown [facility] (20 sources) Sulfonamides (Antibiotic) Drug Allergy 09-02-19 Other (See Comments) [facility] (1 source) diphenhydrAMINE; Translations: [DIPHENHYDRAMINE HCL] [...] 24 ABSOLUTE BASOPHIL 0.0 X10E9/L Normal 0.0-0.2 [facility] Comment on above: Performed By: #### C BCA, CMP, 86609-3 #### [facility] ([id number]) [address] [place] [address], [place] [address] ABSOLUTE NEUTROPHIL 5.0 X10E9/L Normal 1.5-6.6 [facility] Comment on above: Performed By: #### C BCA, CMP, 33511-0 #### [facility] ([id number]) [address] [place] [address] 27881 Basophils/100 WBC (Bld) 0.2 % Normal [facility] Comment on above: Performed By: #### Deanna BROWN CMP, #### [facility] ([id number]) [address] [place] [address] 95001 Eosinophils (Bld) [#/Vol] 0.1 10*3/uL Normal 0.0-0.4 [facility] Comment on above: Performed By: #### Deanna BROWN CMP, #### [facility] ([id number]) [address] [place] [address] 47687 Eosinophils/100 WBC (Bld) 1.2 % Normal [facility] Comment on above: Performed By: #### Deanna RBOWN [facility], #### [facility] ([id number]) [address] [place] [address] 42558 Erythrocyte distribution width (RBC) [Ratio] 13.4 % Normal 11.5-15.0 [facility] Comment on above: Performed By: #### Deanna BROWN [facility], #### [facility] ([id number]) [address] [place] [address] 62493 Hematocrit (Bld) [Volume fraction] 39.6 % Normal 35-47 [facility] Comment on above: Performed By: #### Deanna BROWN CMP, #### [facility] ([id number]) [address] [place] [address] 11795 Hemoglobin (Bld) [Mass/Vol] 13.2 g/dL Normal 11.7-15.5 [facility] Comment on above: Performed By: #### Deanna BROWN CMP, #### [facility] ([id number]) [address] [place] [address] 18082 Lymphocytes (Bld) [#/Vol] 1.0 10*3/uL Normal 1.0-3.5 [facility] Comment on above: Performed By: #### Deanna BROWN CMP, #### [facility] ([id number]) [address] [place] [address] 11871 Lymphocytes/100 WBC (Bld) 14.2 % Normal [facility] Comment on above: Performed By: #### Deanna BROWN CMP, #### [facility] ([id number]) [address] [place] [address] 79748 MCH (RBC) [Entitic mass] 31.0 pg Normal 27-34 [facility] Comment on above: Performed By: #### Deanna BROWN CMP, #### [facility] ([id number]) [address] [place] [address] 01802 MCHC (RBC) [Mass/Vol] 33.4 g/dL Normal 32-36 [facility] Comment on above: Performed By: #### Deanna BROWN CMP, #### [facility] ([id number]) [address] [place] [address] 69286 MCV (RBC) [Entitic vol] 93 fL Normal 80-100 [facility] Comment on above: Performed By: #### Deanna BROWN CMP, #### [facility] ([id number]) [address] [place] [address] 79997 Monocytes (Bld) [#/Vol] 1.2 10*3/uL High 0-0.9 [facility] Comment on above: Performed By: #### Deanna BROWN CMP, #### [facility] ([id number]) [address] [place] [address] 45019 Monocytes/100 WBC (Bld) 16.8 % Normal [facility] Comment on above: Performed By: #### Deanna BROWN CMP, #### [facility] ([id number]) [address] [place] [address] 01057 Neutrophils/100 WBC (Bld) 67.6 % Normal [facility] Comment on above: Performed By: #### C BCA, CMP, 64647-9 #### [facility] ([id number]) [address] [place] [address] 17226 Platelet mean volume (Bld) [Entitic vol] 8.6 fL Normal 7-12 [facility] Comment on above: Performed By: #### C BCA, CMP, 64175-2 #### [facility] ([id number]) [address] [place] [address] 09891 Platelets (Bld) [#/Vol] 172 10*3/uL Normal 150-450 [facility] Comment on above: Performed By: #### C BCA, CMP, 43006-3 #### [facility] ([id number]) [address] [place] [address] 21878 RBC COUNT 4.26 X10E12/L Normal 3.80-5.20 [facility] Comment on above: Performed By: #### C BCA, CMP, 21151-9 #### [facility] ([id number]) [address] [place] [address] 00352 WBC (Bld) [#/Vol] 7.3 10*3/uL Normal 4.0-11.0 [facility] Comment on above: Performed By: #### C BCA, CMP, 10276-1 #### [facility] ([id number]) [address] [place] [address] 20599 COMPREHENSIVE METABOLIC PANE Cruzito 01-12-2024 Albumin [Mass/Vol] 3.8 g/dL Normal 3.2-5.3 [facility] Comment on above: Performed By: #### B MP, LIVR, CBCA #### [facility] ([id number]) [address] [place] [address] 19755 ALP [Catalytic activity/Vol] 49 U/L Normal 39-130 [facility] Comment on above: Performed By: #### B ANJUM LIVR, CBCA #### [facility] ([id number]) [address] [place] [address] 49940 ALT [Catalytic activity/Vol] 28 U/L Normal 0-31 [facility] Comment on above: Performed By: #### B ANJUM LIVR, CBCA #### [facility] ([id number]) [address] [place] [address] 51352 Anion gap [Moles/Vol] 9 mmol/L Normal 5-15 [facility] Comment on above: Performed By: #### B ANJUM LIVR, CBCA #### [facility] ([id number]) [address] [place] [address] 46219 AST [Catalytic activity/Vol] 31 U/L Normal 0-41 [facility] Comment on above: Performed By: #### B ANJUM LIVR, CBCA #### [facility] ([id number]) [address] [place] [address] 76185 Bilirubin [Mass/Vol] 0.4 mg/dL Normal 0.3-1.2 [facility] Comment on above: Performed By: #### B ANJUM LIVR, CBCA #### [facility] ([id number]) [address] [place] [address] 48637 Calcium [Mass/Vol] 8.5 mg/dL Normal 8.5-10.5 [facility] Comment on above: Performed By: #### B ANJUM, LIVR, CBCA #### [facility] ([id number]) [address] [place] [address] 90609 Chloride [Moles/Vol] 104 mmol/L Normal 98-109 [facility] Comment on above: Performed By: #### B DIPTI VALERO CBCRonen #### [facility] ([id number]) [address] [place] [address] 53018 CO2 [Moles/Vol] 25 mmol/L Normal 22-32 [facility] Comment on above: Performed By: #### B ANJUM LIVNaima CBCRonen #### [facility] ([id number]) [address] [place] [address] 70515 Creatinine [Mass/Vol] 0.79 mg/dL Normal 0.40-1.00 [facility] Comment on above: Result Comment: METH OD TRACEABLE TO IDMS STANDARD Performed By: #### B DIPTI VALERO CBCA #### [facility] ([id number]) [address] [place] [address] 18549 GFR/1.73 sq M.predicted among non-blacks MDRD (S/P/Bld) [Vol rate/Area] 77 mL/min/{1.73_m2} Normal >59 [facility] Comment on above: Result Comment: Reported eGFR is based on the CKD-EPI 2020 equation that does not use a race coefficient. Performed By: #### B ANJUM LIVANNIE Mcnamara #### [facility] ([id number]) [address] [place] [address] 71302 Glucose [Mass/Vol] 78 mg/dL Normal 65-99 [facility] Comment on above: Performed By: #### B DIPTI VALERO CBCRonen #### [facility] ([id number]) [address] [place] [address] 70337 Potassium [Moles/Vol] 3.7 mmol/L Normal 3.5-5.0 [facility] Comment on above: Performed By: #### B ANJUM LIVNaima CBCA #### [facility] ([id number]) [address] [place] [address] 60281 Protein [Mass/Vol] 6.8 g/dL Normal 6.0-8.0 [facility] Comment on above: Performed By: #### B ANJUM LIVR, CBCA #### [facility] ([id number]) [address] [place] [address] 46039 Sodium [Moles/Vol] 138 mmol/L Normal 134-146 [facility] Comment on above: Performed By: #### B ANJUM LIVR, CBCA #### [facility] ([id number]) [address] [place] [address] 71180 Urea nitrogen [Mass/Vol] 18 mg/dL Normal 5-27 [facility] Comment on above: Performed By: #### B ANJUM LIVR, CBCA #### [facility] ([id number]) [address] [place] [address] 00338 MAGNESIUMon 01-12-2024 Magnesium [Mass/Vol] 2.2 mg/dL Normal 1.8-2.6 [facility] Comment on above: Performed By: #### B ANJUM LIVR, CBCA #### [facility] ([id number]) [address] [place] [address] 95816 CBC AND AUTO DIFFon 01-11-20 24 ABSOLUTE BASOPHIL 0.0 X10E9/L Normal 0.0-0.2 [facility] Comment on above: Performed By: #### C KEVIN, CMP, 46744-6, THYR #### [facility] ([id number]) [address] [place] [address] 07952 ABSOLUTE NEUTROPHIL 4.2 X10E9/L Normal 1.5-6.6 [facility] Comment on above: Performed By: #### C BCA, CMP, , THYR #### [facility] ([id number]) [address] [place] [address] 30208 Basophils/100 WBC (Bld) 0.2 % Normal [facility] Comment on above: Performed By: #### C REDD BROWN, , THYR #### [facility] ([id number]) [address] [place] [address] 40221 Eosinophils (Bld) [#/Vol] 0.0 10*3/uL Normal 0.0-0.4 [facility] Comment on above: Performed By: #### C REDD BROWN, , THYR #### [facility] ([id number]) [address] [place] [address] 86962 Eosinophils/100 WBC (Bld) 0.2 % Normal [facility] Comment on above: Performed By: #### Deanna BROWN CMP, , THYR #### [facility] ([id number]) [address] [place] [address] 86075 Erythrocyte distribution width (RBC) [Ratio] 13.1 % Normal 11.5-15.0 [facility] Comment on above: Performed By: #### C KEVIN [facility], , THYR #### [facility] ([id number]) [address] [place] [address] 48894 Hematocrit (Bld) [Volume fraction] 37.4 % Normal 35-47 [facility] Comment on above: Performed By: #### Deanna BROWN CMP, , THYR #### [facility] ([id number]) [address] [place] [address] 95178 Hemoglobin (Bld) [Mass/Vol] 12.7 g/dL Normal 11.7-15.5 [facility] Comment on above: Performed By: #### C REDD BROWN, , THYR #### [facility] ([id number]) [address] [place] [address] 77919 Lymphocytes (Bld) [#/Vol] 0.9 10*3/uL Low 1.0-3.5 [facility] Comment on above: Performed By: #### C KEVIN CMP, , THYR #### [facility] ([id number]) [address] [place] [address] 72150 Lymphocytes/100 WBC (Bld) 13.6 % Normal [facility] Comment on above: Performed By: #### C KEVIN CMP, , THYR #### [facility] ([id number]) [address] [place] [address] 37742 MCH (RBC) [Entitic mass] 31.2 pg Normal 27-34 [facility] Comment on above: Performed By: #### C KEVIN CMP, , THYR #### [facility] ([id number]) [address] [place] [address] 14923 MCHC (RBC) [Mass/Vol] 33.9 g/dL Normal 32-36 [facility] Comment on above: Performed By: #### C KEVIN CMP, , THYR #### [facility] ([id number]) [address] [place] [address] 91156 MCV (RBC) [Entitic vol] 92 fL Normal 80-100 [facility] Comment on above: Performed By: #### Deanna BROWN CMP, , THYR #### [facility] ([id number]) [address] [place] [address] 03881 Monocytes (Bld) [#/Vol] 1.2 10*3/uL High 0-0.9 [facility] Comment on above: Performed By: #### C BCA, CMP, , THYR #### [facility] ([id number]) [address] [place] [address] 73881 Monocytes/100 WBC (Bld) 19.3 % Normal [facility] Comment on above: Performed By: #### C BCA, CMP, , THYR #### [facility] ([id number]) [address] [place] [address] 60245 Neutrophils/100 WBC (Bld) 66.7 % Normal [facility] Comment on above: Performed By: #### C BCA, CMP, , THYR #### [facility] ([id number]) [address] [place] [address] 69778 Platelet mean volume (Bld) [Entitic vol] 8.3 fL Normal 7-12 [facility] Comment on above: Performed By: #### C KEVIN, CMP, , THYR #### [facility] ([id number]) [address] [place] [address] 45500 Platelets (Bld) [#/Vol] 174 10*3/uL Normal 150-450 [facility] Comment on above: Performed By: #### C BCA, CMP, , THYR #### [facility] ([id number]) [address] [place] [address] 08989 RBC COUNT 4.06 X10E12/L Normal 3.80-5.20 [facility] Comment on above: Performed By: #### Deanna BCA, CMP, , THYR #### [facility] ([id number]) [address] [place] [address] 27682 WBC (Bld) [#/Vol] 6.3 10*3/uL Normal 4.0-11.0 [facility] Comment on above: Performed By: #### C BCA, CMP, , THYR #### [facility] ([id number]) [address] [place] [address] 00936 COMPREHENSIVE METABOLIC PANE Cruzito 01-11-2024 Albumin [Mass/Vol] 3.6 g/dL Normal 3.2-5.3 [facility] Comment on above: Performed By: #### C BCA, CMP, , THYR #### [facility] ([id number]) [address] [place] [address] 89541 ALP [Catalytic activity/Vol] 47 U/L Normal 39-130 [facility] Comment on above: Performed By: #### C BCA, CMP, , THYR #### [facility] ([id number]) [address] [place] [address] 31436 ALT [Catalytic activity/Vol] 27 U/L Normal 0-31 [facility] Comment on above: Performed By: #### C BCA, CMP, , THYR #### [facility] ([id number]) [address] [place] [address] 97283 Anion gap [Moles/Vol] 9 mmol/L Normal 5-15 [facility] Comment on above: Performed By: #### C BCA, CMP, , THYR #### [facility] ([id number]) [address] [place] [address] 95079 AST [Catalytic activity/Vol] 28 U/L Normal 0-41 [facility] Comment on above: Performed By: #### C BCA, CMP, , THYR #### [facility] ([id number]) [address] [place] [address] 30646 Bilirubin [Mass/Vol] 0.5 mg/dL Normal 0.3-1.2 [facility] Comment on above: Performed By: #### C BCA, CMP, , THYR #### [facility] ([id number]) [address] [place] [address] 71819 Calcium [Mass/Vol] 8.5 mg/dL Normal 8.5-10.5 [facility] Comment on above: Performed By: #### C BCA, CMP, , THYR #### [facility] ([id number]) [address] [place] [address] 79449 Chloride [Moles/Vol] 106 mmol/L Normal 98-109 [facility] Comment on above: Performed By: #### C REDD BROWN, , THYR #### [facility] ([id number]) [address] [place] [address] 77342 CO2 [Moles/Vol] 24 mmol/L Normal 22-32 [facility] Comment on above: Performed By: #### C REDD BROWN, , THYR #### [facility] ([id number]) [address] [place] [address] 59592 Creatinine [Mass/Vol] 0.74 mg/dL Normal 0.40-1.00 [facility] Comment on above: Result Comment: METH OD TRACEABLE TO IDMS STANDARD Performed By: #### C REDD BROWN, , THYR #### [facility] ([id number]) [address] [place] [address] 94440 GFR/1.73 sq M.predicted among non-blacks MDRD (S/P/Bld) [Vol rate/Area] 83 mL/min/{1.73_m2} Normal >59 [facility] Comment on above: Result Comment: Reported eGFR is based on the CKD-EPI 2020 equation that does not use a race coefficient. Performed By: #### C REDD BROWN, , THYR #### [facility] ([id number]) [address] [place] [address] 59374 Glucose [Mass/Vol] 91 mg/dL Normal 65-99 [facility] Comment on above: Performed By: #### C REDD BROWN, , THYR #### [facility] ([id number]) [address] [place] [address] 09143 Potassium [Moles/Vol] 3.7 mmol/L Normal 3.5-5.0 [facility] Comment on above: Performed By: #### C REDD BROWN, , THYR #### [facility] ([id number]) [address] [place] [address] 09385 Protein [Mass/Vol] 6.5 g/dL Normal 6.0-8.0 [facility] Comment on above: Performed By: #### C REDD BROWN, , THYR #### [facility] ([id number]) [address] [place] [address] 17133 Sodium [Moles/Vol] 139 mmol/L Normal 134-146 [facility] Comment on above: Performed By: #### C REDD BROWN, , THYR #### [facility] ([id number]) [address] [place] [address] 92962 Urea nitrogen [Mass/Vol] 15 mg/dL Normal 5-27 [facility] Comment on above: Performed By: #### C REDD BROWN, , THYR #### [facility] ([id number]) [address] [place] [address] 11773 MAGNESIUMon 01-11-2024 Magnesium [Mass/Vol] 2.6 mg/dL Normal 1.8-2.6 [facility] Comment on above: Performed By: #### 1 9123-9 #### [facility] ([id number]) [address] [place] [address] 27152 Magnesium [Mass/Vol] 1.8 mg/dL Normal 1.8-2.6 [facility] Comment on above: Performed By: #### C REDD BROWN, , THYR #### [facility] ([id number]) [address] [place] [address] 10272 THYROID PROFILEon 01-11-2024 Free T4 [Mass/Vol] 0.81 ng/dL Normal 0.61-1.60 [facility] Comment on above: Performed By: #### C BCA, CMP, 78307-7, THYR #### [facility] ([id number]) [address] [place] [address] 77658 TSH 0.64 uIU/mL Normal 0.49-4.67 [facility] Comment on above: Performed By: #### C BCA, CMP, , THYR #### [facility] ([id number]) [address] [place] [address] 06143 BASIC METABOLIC PANLon 01-09 Anion gap [Moles/Vol] 7 mmol/L Normal 5-15 [facility] Comment on above: Performed By: #### B MP, LIVR, CBCA #### [facility] ([id number]) [address] [place] [address] 31820 Calcium [Mass/Vol] 8.3 mg/dL Low 8.5-10.5 [facility] Comment on above: Performed By: #### B MP, LIVR, CBCA #### [facility] ([id number]) [address] [place] [address] 80997 Chloride [Moles/Vol] 106 mmol/L Normal 98-109 [facility] Comment on above: Performed By: #### B MP, LIVR, CBCA #### [facility] ([id number]) [address] [place] [address] 55228 CO2 [Moles/Vol] 22 mmol/L Normal 22-32 [facility] Comment on above: Performed By: #### B MP, LIVR, CBCA #### [facility] ([id number]) [address] [place] [address] 19145 Creatinine [Mass/Vol] 0.90 mg/dL Normal 0.40-1.00 [facility] Comment on above: Result Comment: METH OD TRACEABLE TO IDMS STANDARD Performed By: #### B ANJUM LIVR, CBCA #### [facility] ([id number]) [address] [place] [address] 03363 GFR/1.73 sq M.predicted among non-blacks MDRD (S/P/Bld) [Vol rate/Area] 65 mL/min/{1.73_m2} Normal >59 [facility] Comment on above: Result Comment: Reported eGFR is based on the CKD-EPI 2020 equation that does not use a race coefficient. Performed By: #### B ANJUM LIVR, CBCA #### [facility] ([id number]) [address] [place] [address] 30380 Glucose [Mass/Vol] 100 mg/dL High 65-99 [facility] Comment on above: Performed By: #### B ANJUM LIVR, CBCA #### [facility] ([id number]) [address] [place] [address] 33334 Potassium [Moles/Vol] 4.9 mmol/L Normal 3.5-5.0 [facility] Comment on above: Result Comment: SPEC IMEN HEMOLYZED, RESULTS INCREASED Performed By: #### B MP, LIVR, CBCA #### [facility] ([id number]) [address] [place] [address] 92292 Sodium [Moles/Vol] 135 mmol/L Normal 134-146 [facility] Comment on above: Performed By: #### B MP, LIVR, CBCA #### [facility] ([id number]) [address] [place] [address] 01119 Urea nitrogen [Mass/Vol] 19 mg/dL Normal 5-27 [facility] Comment on above: Performed By: #### B MP, LIVR, CBCA #### [facility] ([id number]) [address] [place] [address] 18569 CBC AND AUTO DIFFon 01-10-20 24 ABSOLUTE BASOPHIL 0.0 X10E9/L Normal 0.0-0.2 [facility] Comment on above: Performed By: #### B ANJUM LIVR, CBCA #### [facility] ([id number]) [address] [place] [address] 00002 ABSOLUTE NEUTROPHIL 5.2 X10E9/L Normal 1.5-6.6 [facility] Comment on above: Performed By: #### B ANJUM LIVR, CBCA #### [facility] ([id number]) [address] [place] [address] 84612 Basophils/100 WBC (Bld) 0.2 % Normal [facility] Comment on above: Performed By: #### B ANJUM LIVR, CBCA #### [facility] ([id number]) [address] [place] [address] 68651 Eosinophils (Bld) [#/Vol] 0.0 10*3/uL Normal 0.0-0.4 [facility] Comment on above: Performed By: #### B ANJUM LIVR, CBCA #### [facility] ([id number]) [address] [place] [address] [id number] Eosinophils/100 WBC (Bld) 0.2 % Normal [facility] Comment on above: Performed By: #### B ANJUM LIVR, CBCA #### [facility] ([id number]) [address] [place] [id number] Erythrocyte distribution width (RBC) [Ratio] 13.2 % Normal 11.5-15.0 [facility] Comment on above: Performed By: #### B ANJUM LIVR, CBCA #### [facility] ([id number]) [address] [place] [address] [phone] Hematocrit (Bld) [Volume fraction] 36.7 % Normal 35-47 [facility] Comment on above: Performed By: #### B MP, LIVR, CBCA #### [facility] ([id number]) [address] [place] [address] [phone] Hemoglobin (Bld) [Mass/Vol] 12.5 g/dL Normal 11.7-15.5 [facility] Comment on above: Performed By: #### B MP, LIVR, CBCA #### [facility] ([id number]) [address] [place] [address] 79155 Lymphocytes (Bld) [#/Vol] 0.7 10*3/uL Low 1.0-3.5 [facility] Comment on above: Performed By: #### B MP, LIVR, CBCA #### [facility] ([id number]) [address] [place] [address] 69638 Lymphocytes/100 WBC (Bld) 9.9 % Normal [facility] Comment on above: Performed By: #### B MP, LIVR, CBCA #### [facility] ([id number]) [address] [place] [address] [id number] MCH (RBC) [Entitic mass] 31.4 pg Normal 27-34 [facility] [facility] Comment on above: Performed By: #### B MP, LIVR, CBCA #### [facility] ([id number]) [address] [place] [address] 32654 MCHC (RBC) [Mass/Vol] 34.0 g/dL Normal 32-36 [facility] Comment on above: Performed By: #### B MP, LIVR, CBCA #### [facility] ([id number]) [address] [place] [address] 16760 MCV (RBC) [Entitic vol] 92 fL Normal 80-100 [facility] Comment on above: Performed By: #### B MP, LIVR, CBCA #### [facility] ([id number]) [address] [place] [address] 34250 Monocytes (Bld) [#/Vol] 1.0 10*3/uL High 0-0.9 [facility] Comment on above: Performed By: #### B MP, LIVR, CBCA #### [facility] ([id number]) [address] [place] [address] 59995 Monocytes/100 WBC (Bld) 14.7 % Normal [facility] Comment on above: Performed By: #### B MP, LIVR, CBCA #### [facility] ([id number]) [address] [place] [address] 08782 Neutrophils/100 WBC (Bld) 75.0 % Normal [facility] Comment on above: Performed By: #### B MP, LIVR, CBCA #### [facility] ([id number]) [address] [place] [address] 38153 Platelet mean volume (Bld) [Entitic vol] 8.1 fL Normal 7-12 [facility] Comment on above: Performed By: #### B MP, LIVR, CBCA #### [facility] ([id number]) [address] [place] [address] 85761 Platelets (Bld) [#/Vol] 173 10*3/uL Normal 150-450 [facility] Comment on above: Performed By: #### B MP, LIVR, CBCA #### [facility] ([id number]) [address] [place] [address] 53003 RBC COUNT 3.97 X10E12/L Normal 3.80-5.20 [facility] Comment on above: Performed By: #### B MP, LIVR, CBCA #### [facility] ([id number]) [address] [place] [address] 25203 WBC (Bld) [#/Vol] 6.9 10*3/uL Normal 4.0-11.0 [facility] Comment on above: Performed By: #### B MP, LIVR, CBCA #### [facility] ([id number]) [address] [place] [address] 04076 LIVER PANELon 01-10-2024 Albumin [Mass/Vol] 3.9 g/dL Normal 3.2-5.3 [facility] Comment on above: Performed By: #### B MP, LIVR, CBCA #### [facility] ([id number]) [address] [place] [address] 29546 ALP [Catalytic activity/Vol] 47 U/L Normal 39-130 [facility] Comment on above: Performed By: #### B MP, LIVR, CBCA #### [facility] ([id number]) [address] [place] [address] 35815 ALT [Catalytic activity/Vol] 23 U/L Normal 0-31 [facility] Comment on above: Result Comment: SPEC IMEN HEMOLYZED, RESULTS INCREASED Performed By: #### B MP, LIVR, CBCA #### [facility] ([id number]) [address] [place] [address] 61649 AST [Catalytic activity/Vol] 44 U/L High 0-41 [facility] Comment on above: Result Comment: SPEC IMEN HEMOLYZED, RESULTS INCREASED Performed By: #### B MP, LIVR, CBCA #### [facility] ([id number]) [address] [place] [address] 00089 Bilirubin [Mass/Vol] 1.3 mg/dL High 0.3-1.2 [facility] Comment on above: Result Comment: RESU LTS QUESTIONABLE DUE TO HEMOLYSIS Performed By: #### B MP, LIVR, CBCA #### [facility] ([id number]) [address] [place] [address] 28307 Bilirubin.direct [Mass/Vol] 0.4 mg/dL Normal 0.0-0.4 [facility] Comment on above: Performed By: #### B MP, LIVR, CBCA #### [facility] ([id number]) [address] [facility], [place] [address] Protein [Mass/Vol] 7.0 g/dL Normal 6.0-8.0 [facility] Comment on above: Result Comment: SPEC IMEN HEMOLYZED, RESULTS INCREASED Performed By: #### B MP, LIVR, CBCA #### [facility] ([id number]) [address] [facility], [place] [address] Laboratory - Microbiology an d Antimicrobial susceptibilityon 01-10-2024 SARS-CoV-2 (COVID-19) RNA [facility]IV[facility]+probe Ql (Unsp spec) Positive [facility] No Panel Informationon 01-09 FLU A Negative [facility] FLU B Negative [facility] Interpretation and review of laboratory results Abnormal [facility] CHEST 1 VWon [...] Lockett MD on 01/10/2024 8:08 PM Normal [facility] Urinalysis macro (dipstick) panel (U)on 01-07-2024 Bilirubin, UA Negative Negative - 4(70) +++ mg/dL [facility] Blood, UA Negative Negative - 50 Dallin/mcL [facility] Clarity, UA Clear [facility] Color, UA Light Yellow [facility] are Glucose, UA Negative Negative - 2000(110) ++++ mg/dL [facility] Interpretation and review of laboratory results Normal [facility] Ketones, UA Negative Negative - 160(16) ++++ mg/dL [facility] Leukocytes, UA Negative Negative - 500+++ José/mcL [facility] Nitrite, UA Negative Negative - Positive [facility] pH, UA 6.0 5 - 9 [facility] Quick[employer] e Protein, UA Negative Negative - 2000(20) ++++ mg/dL [facility] Spec Grav, UA 1.010 1 - 1.03 [facility] Urobilinogen, UA 0.2 0.2 - 12 mg/dL [facility] Lumbar spine 4 [facility] Result: June 05, 2023 x-rays AP lateral and lateral flexion-extension views of the lumbar spine demonstrate severe scoliosis apex to the right at the thoracolumbar junction of nearly 90 degrees curvature in the coronal plane. There are no definitive fractures identified. Impression: Severe scoliosis Corwin Lui D.O. [facility] XR Lumbar spine 4 ViewsOrder ed By: Andrea Lui on 06-06-2023 [facility] [employer] Work Phone: XR Lumbar spine 4 [facility] Radiology Study observation (narrative) [facility] SCREENING MAMMOGRAM W/JORDAN, BILATERAL*on 04-10-2021 SCREENING [...] VERY IMPORTANT TO YOUR HEALTH. THE CURRENT [employer] GUIDELINES RECOMMENDS ANNUAL MAMMOGRAPHY BEGINNING AT AGE 40 THIS FACILITY USES A REMINDER SYSTEM TO ENSURE ALL PATIENTS RECEIVE REMINDER NOTIFICATIONS AT THE APPROPRIATE TIME BASED ON THE RECOMMENDATIONS OF THIS EXAM. Report reported and signed by Filiberto Love on 04/10/2021 1211 Normal [facility] [place] [facility] Direct Care Specialist Vital Signs Date Time Vital Sign Value Performing Clinician Farhad rodriguez 05-11-2024 15:02-0500 Body height 153.7 cm Lisandra Jimenez MD Work Phone: [facility] 05-11-2024 15:02-0500 Body mass index (BMI) [Ratio] 21.36 kg/m2 Lisandra Jimenez MD Work Phone: [facility] 05-11-2024 15:02-0500 Body weight 50.44 kg Lisandra Jimenez MD Work Phone: [facility] 05-11-2024 15:02-0500 Diastolic blood pressure 64 mm[Hg] Lisandra Jimenez MD Work Phone: [facility] 05-11-2024 15:02-0500 Heart rate 65 /min Lisandra Jimenez MD Work Phone: [facility] 05-11-2024 15:02-0500 Respiratory rate 18 /min Lisandra Jimenez MD Work Phone: [facility] 05-11-2024 15:02-0500 SaO2% (BldA) [Mass fraction] 99 % Lisandra Jimenez MD Work Phone: [facility] 05-11-2024 15:02-0500 Systolic blood pressure 112 mm[Hg] Lisandra Jimenez MD Work Phone: [facility] 02-03-2024 09:06-0400 Body height 153.7 cm Lisandra Jimenez MD Work Phone: [facility] 02-03-2024 09:06-0400 Body mass index (BMI) [Ratio] 21.32 kg/m2 Lisandra Jimenez MD Work Phone: [facility] 02-03-2024 09:06-0400 Body weight 50.35 kg Lisandra Jimenez MD Work Phone: [facility] 02-03-2024 09:06-0400 Heart rate 83 /min Lisandra Jimenez MD Work Phone: [facility] 02-03-2024 09:06-0400 SaO2% (BldA) [Mass fraction] 94 % Lisandra Jimenez MD Work Phone: [facility] 01-10-2024 16:07-0400 Body height 154.9 cm Diana Gomez MD Work Phone: [facility] 01-10-2024 16:07-0400 Body temperature 98.8 [degF] Diana Gomez MD Work Phone: [facility] 01-10-2024 16:07-0400 Diastolic blood pressure 78 mm[Hg] Diana Gomez MD Work Phone: [facility] 01-10-2024 16:07-0400 Heart rate 122 /min Diana Gomez MD Work Phone: [facility] 01-10-2024 16:07-0400 SaO2% (BldA) [Mass fraction] 93 % Diana Gomez MD Work Phone: [facility] 01-10-2024 16:07-0400 Systolic blood pressure 122 mm[Hg] Diana Gomez MD Work Phone: [facility] 01-07-2024 13:02-0400 Body height 154.9 cm Lisandra Jimenez MD Work Phone: [facility] 01-07-2024 13:02-0400 Body mass index (BMI) [Ratio] 21.54 kg/m2 Lisandra Jimenez MD Work Phone: [facility] 01-07-2024 13:02-0400 Body weight 51.71 kg Lisandra Jimenez MD Work Phone: [facility] 01-07-2024 13:02-0400 Diastolic blood pressure 78 mm[Hg] Lisandra Jimenez MD Work Phone: [facility] 01-07-2024 13:02-0400 Heart rate 65 /min Lisandra Jimenez MD Work Phone: [facility] 01-07-2024 13:02-0400 Respiratory rate 18 /min Lisandra Jimenez MD Work Phone: [facility] 01-07-2024 13:02-0400 SaO2% (BldA) [Mass fraction] 97 % Lisandra Jimenez MD Work Phone: [facility] 01-07-2024 13:02-0400 Systolic blood pressure 122 mm[Hg] Lisandra Jimenez MD Work Phone: [facility] 06-10-2023 10:05-0500 Body height 154.9 cm Lisandra Jimenez MD Work Phone: [facility] 06-10-2023 10:05-0500 Body mass index (BMI) [Ratio] 20.6 kg/m2 Lisandra Jimenez MD Work Phone: [facility] 06-10-2023 10:05-0500 Body weight 49.44 kg Lisandra Jimenez MD Work Phone: [facility] 06-10-2023 10:05-0500 Diastolic blood pressure 68 mm[Hg] Lisandra Jimenez MD Work Phone: [facility] 06-10-2023 10:05-0500 Heart rate 76 /min Lisandra Jimenez MD Work Phone: [facility] 06-10-2023 10:05-0500 Respiratory rate 16 /min Lisandra Jimenez MD Work Phone: [facility] 06-10-2023 10:05-0500 Systolic blood pressure 130 mm[Hg] Lisandra Jimenez MD Work Phone: [facility] Healthcare Encounters Encounter Date Encounter Type [...] 03-30-2024 End: 03-30-2024 ambulatory Mere Woodard MD Facility:[facility] Start: 03-23-2024 End: 03-23-2024 ambulatory Mere Woodard MD Facility:[facility] Start: 03-03-2024 End: 03-03-2024 Refill Lisandra Jimenez MD Work Phone: [facility] Comment on above: Gastroesophageal ref lux disease without esophagitis; Mixed stress and urge urinary incontinence; Tachycardia; Age-related osteoporosis without current pathological fracture ([facility] Start: 02-03-2024 End: 02-03-2024 Bamboo flowsheet Lisandra [...] 01-13-2024 Emergency department patient visit SERGIO JARVIS [facility] Start: 01-10-2024 End: 01-12-2024 ambulatory LISANDRA Varghese MONACOER [facility] Start: 01-10-2024 End: 01-10-2024 ambulatory [...] 08-19-2023 End: 08-19-2023 ambulatory Mere Woodard MD Facility:[facility] Start: 08-02-2023 Telephone encounter Maya Villalobos RN [facility] Comment on above: Records, transfer to [facility] Start: 07-30-2023 End: 07-30-2023 ambulatory LISANRDA JIMENEZ Not Available Start: 07-17-2023 End: 07-17-2023 [...] loss; Age-related osteoporosis without current pathological fracture ([facility]) Start: 06-10-2023 End: 06-10-2023 Patient encounter status [...] outpatient visit 15 minutes Florence Duenas Josemanpreet [employer] Work Phone: [facility] Comment on [...] ral minimum 4 views Florence Duenas Julienne [employer] Work Phone: Plan of Treatment Date Care Activity Detail Author Start: 06-10-2024 Medicare Annual Wellness (AWV) Medicare Annual Wellness (AWV) [facility] Start: 05-15-2024 End: 05-15-2024 Professional / ancillary services management 05/15/2024 10:00 AM EST Ancillary Procedure [facility] [address] [place] [address] [facility] Start: 05-11-2024 [...] EDT Office Visit [facility] [address] [place] [place] [id number] Lisandra Jimenez MD [address] [place] [place] [address] Arrived [facility] Comment on above: Arrived Start: 01-02-2024 Adult BMI Screening Adult BMI Screen ing [facility] Start: 12-29-2023 Influenza vaccination [facility] Start: 12-29-2023 Tobacco Screening Tobacco Screening [facility] Start: 12-09-2023 End: 12-09-2023 Patient encounter procedure 12/09/2023 9:40 AM EDT Office Visit [facility] [address] [facility] [place] [address] Lisandra Jimenez MD [address] [facility] [place] [address] [facility] Start: 08-01-2023 Medicare Annual Wellness (AWV) Medicare Annual Wellness (AWV) [facility] Start: 07-30-2023 End: 07-30-2023 Patient encounter procedure 07/30/2023 9:00 AM EDT Office Visit [facility] [address] [place] [place] [id number] Lisandra Jimenez MD [address] [place] [place] [address] [facility] Start: 07-01-2023 End: 07-01-2023 Patient encounter procedure 07/01/2023 9:00 AM EST Office Visit [facility] [address] [place] [address] Florence Robins NP [address] [place] [address] [facility] Start: 06-26-2023 End: 06-26-2023 Patient encounter procedure 06/26/2023 10:00 AM EST Office Visit [facility] [address] [place] [address] Florence Robins, [employer] [address] [place] [address] [facility] Start: 06-10-2023 End: 06-10-2023 Patient encounter procedure [facility] Comment on above: Arrived Start: 02-10-2023 DTaP,Tdap and Td Vaccines (3 - Td or Tdap) DTaP,Tdap and Td Vaccines (3 - Td or Tdap) [facility] Start: 12-28-2022 COVID-19 Vaccine ( season) COVID-19 Vaccine ( season) [facility] Start: 2010 Fall Risk Screening Fall Risk Screen ing [facility] Start: 1957 Depression Screening Depression Scre ening [facility] Start: 1945 Medicare Annual Wellness Visit Medicare Annual Wellness Visit [facility] Immunizations Immunization Date Immunization Notes Care Provider Fa cility 02-03-2024 influenza, high dose seasonal, preservative-free Lisandra Jimenez MD Work Phone: [facility] 04-08-2023 RSV, recombinant, protein subunit RSVpreF, adjuvant reconstitu, 120mcg/0.5mL, PF (Arexvy) Lisandra Jimenez MD Work Phone: [facility] 01-28-2023 Influenza, High-dose Seasonal, Quadrivalent, Preservative Free Loli Rivera [employer] Work Phone: [facility] Work Phone: 01-28-2023 influenza virus vacc ine, unspecified formulation Lisandra Jimenez MD Work Phone: [facility] 02-06-2022 Influenza, High-dose Seasonal, Quadrivalent, Preservative Free Loli Rivera [employer] Work Phone: [facility] 02-06-2022 Moderna Bivalent Price ster Vaccination Loli Rivera [employer] Work Phone: [facility] 02-06-2022 Moderna SARS-CoV-2 50mcg/0.5mL Booster Loli Rievra [employer]ER Work Phone: [facility] 02-06-2022 influenza virus vacc ine, unspecified formulation Maya Villalobos RN [facility] 01-26-2021 Influenza, High-dose Seasonal, Quadrivalent, Preservative Free Loli Rivera [employer] Work Phone: [facility] 01-27-2020 Influenza, High-dose Seasonal, Quadrivalent, Preservative Free Loli Rivera [employer]ER Work Phone: [facility] 03-12-2019 zoster vaccine recombinant Loli Rivera [employer]ER Work Phone: [facility] 01-26-2019 zoster vaccine, live Loli W olf [employer]ER Work Phone: [facility] 01-22-2019 influenza, high dose seasonal, preservative-free Loli Rivera [employer]ER Work Phone: [facility] 01-22-2019 Influenza, High-dose Seasonal, Quadrivalent, Preservative Free Loli Rivera [employer]ER Work Phone: [facility] 01-22-2019 zoster vaccine recombinant Loli Rivera [employer]ER Work Phone: [facility] 01-20-2018 influenza, high dose seasonal, preservative-free Loli Rivera [employer]ER Work Phone: [facility] 01-20-2018 influenza, injectabl e, quadrivalent, preservative free Loli Rivera [employer]ER Work Phone: [facility] 01-18-2017 influenza, high dose seasonal, preservative-free Loli Rivera [employer] TE[employer]ER Work Phone: [facility] 01-18-2017 Influenza, High-dose Seasonal, Quadrivalent, Preservative Free Loli Rivera [employer]ER Work Phone: [facility] 01-17-2016 influenza, high dose seasonal, preservative-free Loli Rivera [employer]ER Work Phone: [facility] 01-17-2016 pneumococcal conjuga te vaccine, 13 valent Loli Rivera [employer]ER Work Phone: [facility] 01-12-2015 influenza, high dose seasonal, preservative-free Loli Rivera [employer] TE[employer]ER Work Phone: [facility] 01-11-2014 influenza, high dose seasonal, preservative-free Loli Rivera [employer]ACHER Work Phone: [facility] 02-10-2013 tetanus and diphther ia toxoids, adsorbed, preservative free, for adult use (5 Lf of tetanus toxoid and 2 Lf of diphtheria toxoid) Loli Rivera [employer]ER Work Phone: [facility] 02-10-2013 tetanus toxoid, redu jessica diphtheria toxoid, and acellular pertussis vaccine, adsorbed Loli Rivera [employer] TEACHER Work Phone: [facility] 02-06-2013 seasonal influenza, intradermal, preservative free Loli Rivera [employer] TEACHER Work Phone: [facility] 12-23-2012 zoster vaccine, live Loli W olf [employer]ER Work Phone: [facility] 12-12-2012 pneumococcal polysaccharide vaccine, 23 valent Loli Rivera [employer] TE[employer]ER Work Phone: [facility] 02-06-2012 influenza, seasonal, injectable, preservative free Loli Rivera [employer] TE[employer]ER Work Phone: [facility] 04-17-2004 influenza, seasonal, injectable Loli Rivera [employer] TE[employer]ER Work Phone: [facility] 04-27-2003 influenza, seasonal, injectable Loli Rivera [employer] TE[employer]ER Work Phone: [facility] 04-27-2002 influenza, seasonal, injectable Loli Rivera [employer] TE[employer]ER Work Phone: [facility] 04-01-2001 influenza, seasonal, injectable Loli Rivera [employer] TE[employer]ER Work Phone: [facility] 03-08-1999 pneumococcal polysaccharide vaccine, 23 valent Loli Rivera [employer] TEACHER Work Phone: [facility] Payers Date Payer Category Payer Private Health Insurance 2021 Medicaid [employer] MEDICARE A DVANTAGE [id number] 2021 Medicare [id number] 2021 Medicare [id number] 1945 Unknown [id number] 2.16.840.1.149738.3.579.2. 1286 1945 Unknown [id number] 2.16.840.1.015282.3.579.2. 128 1945 Unknown [id number] 2.16.840.1.720837.3.579.2. 196 1945 Unknown [id number] 2.16.840.1.895433.3.579.2. 196 1945 Unknown [id number] 2.16.840.1.567463.3.579.2. 196 1945 Unknown [id number] 2.16.840.1.854862.3.579.2. 196 1945 Unknown [id number] 2.16.840.1.772822.3.579.2. 196 1945 Unknown [id number] 2.16.840.1.460575.3.579.2. 1259 1945 Unknown [id number] 2.16.840.1.658114.3.579.2. 1259 1945 Unknown [id number] 2.16.840.1.624513.3.579.2. 1259 1945 Unknown [id number] 2.16.840.1.579234.3.579.2. 1259 17-1946 Unknown [id number] 2.16.840.1.552196.3.579.2. 1258 1945 Unknown [id number] 2.16.840.1.198749.3.579.2. 1258 1945 Unknown [id number] 2.16.840.1.098798.3.579.2. 1258 1945 Unknown [id number] 2.16.840.1.744430.3.579.2. 1258 1945 Unknown [id number] 2.16.840.1.011384.3.579.2. 1258 1945 Unknown [id number] 2.16.840.1.610792.3.579.2. 1258 1945 Unknown [id number] 2.16.840.1.254510.3.579.2. 1258 1945 Unknown [id number] 2.16.840.1.330084.3.579.2. 1258 1945 Unknown [id number] 2.16.840.1.903767.3.579.2. 1258 1945 Unknown [id number] 2.16.840.1.006374.3.579.2. 1258 1945 Unknown [id number] 2.16.840.1.425584.3.579.2. 1258 1945 Unknown [id number] 2.16.840.1.001673.3.579.2. 1258 1945 Unknown [id number] 2.16.840.1.562686.3.579.2. 1258 1945 Unknown [id number] 2.16.840.1.352797.3.579.2. 1258 1945 Unknown [id number] 2.16.840.1.543494.3.579.2. 1258 1945 Unknown [id number] 2.16.840.1.504806.3.579.2. 125 1945 Unknown [id number] 2.16.840.1.634492.3.579.2. 1258 1945 Unknown [id number] 2.16.840.1.386014.3.579.2. 1258 1945 Unknown [id number] 2.16.840.1.359379.3.579.2. 1258 1945 Unknown [id number] 2.16.840.1.977701.3.579.2. 1258 1945 Unknown [id number] 2.16.840.1.053617.3.579.2. 1258 1945 Unknown [id number] 2.16.840.1.445739.3.579.2. 1258 1945 Unknown [id number] 2.16.840.1.283962.3.579.2. 1258 1945 Unknown [id number] 2.16.840.1.198128.3.579.2. 1258 1945 Unknown [id number] 2.16.840.1.156680.3.579.2. 1258 1945 Unknown [id number] 2.16.840.1.590103.3.579.2. 1258 1945 Unknown [id number] 2.16.840.1.916224.3.579.2. 1258 1945 Unknown [id number] 2.16.840.1.997371.3.579.2. 1258 1945 Unknown [id number] 2.16.840.1.558935.3.579.2. 1258 1945 Unknown [id number] 2.16.840.1.807853.3.579.2. 1258 1945 Unknown [id number] 2.16.840.1.718068.3.579.2. 1258 1945 Unknown [id number] 2.16.840.1.704111.3.579.2. 1259 1945 Unknown [id number] 2.16.840.1.808869.3.579.2. 9 1945 Unknown [id number] 2.16.840.1.626651.3.579.2. 9 1945 Unknown [id number] 2.16.840.1.723683.3.579.2. 9 1945 Unknown [id number] 2.16.840.1.193929.3.579.2. 1259 Social History Date Type Detail Facility Start: 05-24-2022 End: 10-10-2022 Tobacco smoking status ARIS Never smoked tobacco [facility] Start: 05-24-2022 [...] partner or ex-partner? No [facility] Attends [employer] Not on file [facility] Do [...] Alcohol intake Current non-drinker of alcohol (finding) [facility] Procedure Code Equipment Code Equipment Origin al Text Equipment Identifier Dates Lens Iol Ultrase rt 11.5d - [id number] - [id number] Start: 04-03-2018 Lens Iol Ultrase rt 13.0d - [id number] - [id number] Start: 08-28-2018 Head Fem 32mm 0m m Vrsy Cocr Hip Rpl [id number] - [id number] - [id number] +[id number], [id number] FDA Start: 12-26-2022 Screw Bn 15mm 6. [address]mm [address] Hip Actb Trlg Strl Rpl [id number] - [id number] - [id number] Start: 12-26-2022 Goals Date Patient Goal [...] physical therapy. She used to participate in [employer] classes, which included weightlifting, but discontinued this [...] in weight-bearing exercises, such as resuming her [employer] classes, to stimulate bone health. A bone density test will be scheduled to monitor her condition. PROCEDURE The patient underwent hip replacement surgery approximately 2 years ago. documented in this encounter [facility] 05-05-2024 Telephone encounter Note Voicemail left at 3:55 pm. I left her a vm to schedule an appt. Co, this is [employer] Maria for 45. I [...] why that is happening. So it is [phone] [place] [id number]. Thank you very much. Peter lemus. [facility] 05-05-2024 Miscellaneous Notes Voicemail left at 3:55 pm. I left her a vm to schedule an appt. Co, this is Nikky Torreskinson for 45. I [...] why that is happening. So it is [phone] [place] [address]. Thank you very much. Peter lemus. documented in this encounter [facility] 03-03-2024 Telephone encounter Note Approvals with refills [facility] 03-03-2024 Miscellaneous Notes Approvals with refills documented in this encounter [facility] 02-03-2024 History of Present illness Narrative [...] challenging. She also consumes iced coffee from [employer]. SUBJECTIVE: MEDICATIONS: Current Outpatient Medications Medication Instructions [...] good preventative measure. documented in this encounter [facility] 01-10-2024 History of Present illness Narrative [...] follow-ups on file. documented in this encounter [facility] 01-07-2024 History of Present illness Narrative [...] Orders Flu vaccine, high dose seasonal, PF ([id number]) (Fluzone High Dose) Urinary incontinence, unspecified type Relevant Orders POCT Urinalysis dipstick D.c sugary ice coffees documented in this encounter [facility] 08-02-2023 Miscellaneous Notes Received a phone call from [facility] for patient records to be transferred. documented in this encounter [facility] 08-02-2023 Telephone encounter Note Received a phone call from [facility] for patient records to be transferred. [facility] 06-11-2023 Telephone encounter Note PT Calling to check status of this request, unsure as how to explain the denial of the refill. [facility] 06-11-2023 Miscellaneous Notes PT Calling to check status of this request, unsure as how to explain the denial of the refill. Medication refused due to failing protocol. Requested Prescriptions Pending Prescriptions Disp Refills methylPREDNISolone (Medrol Dospak) 4 MG tablets 21 tablet Sig: Follow schedule on package instructions There is no refill protocol information for this order documented in this encounter [facility] 06-11-2023 Telephone encounter Note Medication refused due to failing protocol. Requested Prescriptions Pending Prescriptions Disp Refills methylPREDNISolone (Medrol Dospak) 4 MG tablets 21 tablet Sig: Follow schedule on package instructions There is no refill protocol information for this order [facility] 06-10-2023 History of Present illness Narrative [...] at all Patient Health Questionnaire-9 Score: 0 Rievra Fall Risk History of Falling, Immediate or [...] direct observation Three Word Registration: Apple, Watch, Syndey Clock Drawing: Normal Clock - 2 Three [...] Recheck in 6months documented in this encounter [facility] 06-05-2023 History of Present illness Narrative [...] anemia Age-related osteoporosis without current pathological fracture (CMS/FORMERLY [facility]) documented in this encounter [facility]* [...] encounter [facility] HealthcareInstructionsNot on filedocumented in this [facility] Summary Purpose Family History No Family History Records FoundNo Family History Records FoundNo Family History Records FoundNo Family History Records Found Advance Directives Documents on File Type Date Recorded Patient Music Specialist Expl anation Living Will 01/17/2023 11:55 AM Durable Power of Wax Pot Tender 01/17/2023 11:54 AM Latest Code Status on File Code Status Date Activated Date Inactivated Comments Full Code 12/28/2022 6:14 PM 01/01/2023 3:49 PM Code Status History Code Status Date Activated Date Inactivated Comments Full Code 12/26/2022 10:18 AM 12/27/2022 7:36 PM Additional Source Comments INFORMATION SOURCE (unrecogn ized section and content) DATE CREATED AUTHOR 04/10/2021 [facility] Me dical Specialist DATE CREATED AUTHOR AUTHOR'S ORGANIZ ATION 01/13/2024 [facility] DATE CREATED AUTHOR AUTHOR'S ORGANIZ ATION 04/03/2024 [facility] DATE CREATED AUTHOR AUTHOR'S ORGANIZ ATION 05/19/2024 [facility] dical Specialists EPIC Reason for Visit (unrecogniz ed section and content) Reason Comments Med Refill Reason Comments Medicare Annual Wellness Visit [facility] Reason Comments Follow-up Patient here for [facility] follow up. She was in the ER [...] Reason Onset Date Comments Records, transfer to [facility] 08/02/2023 Care Teams (unrecognized sec tion and content) Wire Setter Relationship Specialty Start Date End Date Benji Cantrlel MD [address] [facility] [address] [place] [address] PCP - [employer] 04/29/22 Lisandra Jimenez MD [address] [place] [address] PCP - General Family Medicine 09/10/22 Wire Setter Relationship Specialty Start Date End Date Benji Cantrell MD [address] [facility] [address] [place] [address] PCP - [employer] 04/29/22 Lisandra Jimenez MD [address] [place] [address] PCP - General Family Medicine 09/10/22 Wire Setter Relationship Specialty Start Date End Date Benji Cantrell MD [address] [facility] [address] [place] [address] PCP - [employer] 04/29/22 Lisandra Jimenez MD [address] [facility] [place] [address] PCP - General Family Medicine 09/10/22 Wire Setter Relationship Specialty Start Date End Date Benji Cantrell MD [address] [facility] [place] [address] PCP - [employer] 04/29/22 Lisandra Jimenez MD [address] [facility] [place] [address] PCP - General Family Medicine 09/10/22 Wire Setter Relationship Specialty Start Date End Date Benji Cantrell MD [address] [facility] [address] [place] [address] PCP - [employer] 04/29/22 Lisandra Jimenez MD [address] [facility] [place] [address] PCP - General Family Medicine 09/10/22 Wire Setter Relationship Specialty Start Date End Date Benji Cantrell MD [address] [facility] [address] [place] [address] PCP - [employer] 04/29/21 Lisandra Jimenez MD [address] [facility] [place] [address] PCP - General Family Medicine 09/10/22 Wire Setter Relationship Specialty Start Date End Date Benji Cantrell MD [address] [place] [address] [place] [address] PCP - [employer] 04/29/21 Lisandra Jimenez MD [address] [place] [facility] [place] [address] PCP - General Family Medicine 09/10/22 Wire Setter Relationship Specialty Start Date End Date Benji Cantrell MD [address] [facility] [address] [place] [address] PCP - [employer] 04/29/21 Lisandra Jimenez MD [address] [facility] [place] [address] PCP - General Family Medicine 09/10/22 Wire Setter Relationship Specialty Start Date End Date Benji Cantrell MD [address] [facility] [address] [place] [address] PCP - [employer] 04/29/21 Lisandra Jimenez MD [address] [place] [address] PCP - General Family Medicine 09/10/22 Wire Setter Relationship Specialty Start Date End Date Benji Cantrell MD [address] [facility] [address] [place] [address] PCP - [employer] 04/29/21 Lisandra Jimenez MD [address] [place] [address] PCP - General Family Medicine 09/10/22 Wire Setter Relationship Specialty Start Date End Date Benji Cantrell MD [address] [place] [address] [place] [address] PCP - [employer] 04/29/21 Lisandra Jimenez MD [address] [place] [facility] [place] [address] PCP - General Family Medicine 09/10/22 Wire Setter Relationship Specialty Start Date End Date Benji Cantrell MD [address] [place] [address] [place] [address] PCP - [employer] 04/29/21 Lisandra Jimenez MD [address] [place] [facility] [place] [address] PCP - General Family Medicine 09/10/22 Wire Setter Relationship Specialty Start Date End Date Benji Cantrell MD [address] [place] [address] [place] [address] PCP - [employer] 04/29/21 Lisandra Jimenez MD [address] [place] [facility] [place] [address] PCP - General Family Medicine 09/10/22 Wire Setter Relationship Specialty Start Date End Date Benji Cantrell MD [address] [place] [address] [place] [address] PCP - [employer] 04/29/21 Lisandra Jimenez MD [address] [place] [facility] [place] [address] PCP - General Family Medicine 09/10/22 Wire Setter Relationship Specialty Start Date End Date Benji Cantrell MD [address] [place] [address] [place] [address] PCP - [employer] 04/29/21 Lisandra Jimenez MD [address] [facility] [place] [address] PCP - General Family Medicine 09/10/22 Wire Setter Relationship Specialty Start Date End Date Lisandra Jimenez MD [address] [facility] [place], [place] [id number] PCP - General Family Medicine 11/12/16 FOR [...] BE BASED ON THE PRIMARY CLINICAL RECORDS. [employer] provides no warranty or guarantee of the accuracy or completeness of information in this document.
[2024-08-10 11:29] VITALS: BP 169/74; PULSE 98; O2SAT 95
[2024-08-10 11:30] VITALS: BP 166/77; PULSE 86; O2SAT 94
[2024-08-10] MEDS: BUPIVACAINE HCL 0.25% PF 25 MG/10 ML VIAL 2 ML INJ (11:32)
[2024-08-10] MEDS: LIDOCAINE HCL 2% 400 MG/20 ML MDV INJ (11:32)
[2024-08-10] MEDS: IOHEXOL 240 MG/ML - 10 ML VIAL 24 MG INJ (11:32)
[2024-08-10] MEDS: METHYLPREDNISOLONE ACETATE 40 MG/ML VIAL INJ (11:32)
--- NOTE | 2024-08-10 11:43 | W.PM.PROCNOT ---
Date of procedure: 08/10/24 Pre-op diagnosis: Pain due to left sacroiliitis Post-op diagnosis: same as pre-op Procedure: Procedure: Left sacroiliac joint injection Medications: Bupivacaine 0.25% 3cc, depomedrol 40mg After informed consent was obtained, the patient was brought to the medical procedure unit and placed in the prone position, when a timeout was completed verifying correct patient, procedure, site, positioning, implant, and/or special equipment.? The skin overlying the area was prepped and draped in standard sterile fashion using alcohol.? A 25-gauge needle was inserted towards the left sacroiliac joint under direct fluoroscopic imaging.? Needle tip was advanced until the joint was encountered.? We instilled a total of 2 mL of solution.? Postoperatively needles were removed.? The patient tolerated the procedure well without complication.? The patient reported reduction in pain symptoms postoperatively. Anesthesia: Local Surgeon: Mere Woodard Pathology: none sent Condition: stable Disposition: no change
== END 2024-08-10 11:39 | disposition home or self-care (01) ==
LOC: SURGOUT 11:06
PROVIDERS: PCP Family Medicine; Visit Provider Anesthesiology
DX: M46.1 Sacroiliitis, not elsewhere classified (principal)
CPT/HCPCS: 27096; J0665; J1010; Q9966

== ENCOUNTER 2024-08-19 13:19 | Outpatient (OUT) | payer MEDICARE, SELFPAY ==
--- NOTE | 2024-08-19 13:52 | PM.CN ---
Consult Note: HPI Data of Consult Patient: known to practice within the last 3 years Requesting Physician: Teresa Lynn NP Primary Care Provider: YOLA AMES Consult Narrative Reason for consult: left low back, hip pain Narrative: 79yof who presents for assessment. Worsening left low back and hip pain. Continues in a provider directed home exercise program >6 weeks, without benefit. Uses tylenol as needed. Denies adverse med side effects. Pt noticing increased pain and burning to left low back and left thigh. noticing numbness and pain radiating into LLE. recently underwent left SIJ injection with mild relief per pt. pain 0/10 increasing to 6/10 at times without known cause. denies falls. prior imaging of lumbar spine consistent with lumbar DDD, lumbar stenosis, and lumbar spondylosis. cc:: CC: Teresa Lynn NP Review of Systems ROS Status of ROS 10 or more systems reviewed and unremarkable except as noted in history and below Musculoskeletal Reports: back pain and extremity pain PFSH PFS Medical History (Updated 10/10/23 @ 09:33 by Teresa Lynn NP) Low back pain ?M54.50 - Low back pain, unspecified (ICD-10) Surgical History History of hip replacement ?Z96.649 - Presence of unspecified artificial hip joint (ICD-10) Meds Home Medications and Allergies Home Medications ?Medication ?Instructions ?Recorded ?Confirmed ?Type acetaminophen 650 mg 650 mg PO Q12H PRN pain 08/19/23 08/10/24 History tablet,extended release (Tylenol Arthritis Pain) alendronate 70 mg tablet 70 mg PO QWEEK 08/19/23 08/10/24 History famotidine 20 mg tablet 20 mg PO DAILY 08/19/23 08/10/24 History ferrous sulfate 325 mg (65 mg 325 mg PO DAILY 08/19/23 08/10/24 History iron) tablet (Feosol) metoprolol succinate 25 mg 25 mg PO BID 08/19/23 08/10/24 History tablet,extended release 24 hr tolterodine 2 mg tablet 2 mg PO DAILY 08/19/23 08/10/24 History lidocaine 5 % topical patch 1 patch topical DAILY #30 ea 10/10/23 08/10/24 Rx tramadol 50 mg tablet 50 mg PO BID PRN pain, severe #14 03/31/25 04/14/25 Rx tabs Allergies Allergy/AdvReac Type Severity Reaction Status Date / Time No Known Drug Allergies Allergy Verified 08/10/24 11:25 Exam Constitutional Documenting provider has reviewed patient's vital signs: yes Common normals: no apparent distress, oriented x3, healthy appearing, alert and well nourished General appearance: cooperative HENMT Common normals: normocephalic, hearing grossly normal bilaterally and moist oral mucous membranes Head and scalp: normocephalic Eye Common normals: PERRL Pupil: PERRL Neck & C-Spine Common normals: full ROM General: normal visual inspection Chest Common normals: inspection of chest normal Respiratory Common normals: normal respiratory effort, no retractions and no use of accessory muscles Back & Pelvis Lumbar spine/lower back: ROM limited, pain with ROM and straight leg raise positive left; no lumbar spinal tenderness Sacroiliac joints: SI joints normal Other: left sij negative leeann(patricks), gaenslens, thigh thrust, compression test decreased sensation left L2,3,4 pattern strength 4/5 in LLE and 5/5 in RLE Neuro Common normals: oriented x3 and CN's II-XII intact bilaterally Sensorium/orientation: alert Motor exam: no movement abnormalities noted Psych Common normals: mental status grossly normal, thought process normal, cooperative, affect normal, speech normal and activity/motor behavior normal Speech: normal speech Thought process: normal thought process Results Additional Findings Additional findings: If on a controlled substance or opioids, I have checked an [place]AR[place] report on this patient and there are no aberrancies noted in the prescribing history.??If on a controlled substance or opioid a drug screen was completed and reviewed within the last year, and if there has not been a drug screen completed we ordered one today to monitor higher risk, state monitored pain medication use. As part of providing excellent, safe, comprehensive care, the following was completed at our patient's visit: 1. A medication reconciliation and review to ensure accurate knowledge of current/active medications, including asking our patients to inform us about any [id number] medications or herbal remedies/nutritional supplements/alternative remedies. 2. A review to specifically ensure our patients have had annual screening for screening for depression, screening for tobacco use, and screening for unhealthy alcohol use. For concerning screenings had a discussion with the patient, provided patient education, and recommended follow-up with primary care provider when appropriate. If patient noted with a risk of falling, they received education on strength, gait, and balance training to prevent future risk of falling. Portions of this note may have been carried over from the previous visit and updated as appropriate. Please note this office utilizes paper charting in addition to the electronic medical record. A list of current medications, vitals, and PMH is available there as the clinical staff outside of myself do not have access to [employer] charting during the clinic day operations. As part of providing quality comprehensive care the current medications, vitals, and PMH were reviewed in the paper chart. Assessment and Plan Assessment and Plan (1) Sacroiliitis: Assessment and Plan: 03/30/24 left SIJ >50% improvement for 3 months 08/10/24 left SIJ injection mild relief per pt however significant improvement on exam (2) Lumbar stenosis with neurogenic claudication: Plan repeat left L2-3 L3-4 TFESI under fluoroscopy, previous injection provided >50% improvement for at least 3 months start tramadol 50mg once daily for moderate to severe pain, risks vs benefits reviewed. pt not to drive after taking this medication for 8 hours update UDS today continue HEP as tolerated f/u 2 weeks after GEREMIAS
== END 2024-08-19 13:20 | disposition home or self-care (01) ==
LOC: PM 13:25
PROVIDERS: PCP Family Medicine; Visit Provider Nurse Practitioner
DX: M46.1 Sacroiliitis, not elsewhere classified (principal); M48.062 Spinal stenosis, lumbar region with neurogenic claudication
CPT/HCPCS: G0463

== ENCOUNTER 2024-08-31 10:07 | Day surgery (SDC) | payer MEDICARE, SELFPAY ==
[2024-08-31 11:10] VITALS: BP 173/96; PULSE 80; TEMP 36.9; O2SAT 96
[2024-08-31 11:49] VITALS: BP 161/79; PULSE 70; O2SAT 98
[2024-08-31 11:50] VITALS: BP 159/79; PULSE 76; O2SAT 96
[2024-08-31] MEDS: BUPIVACAINE HCL 0.25% PF 25 MG/10 ML VIAL INJ (11:50)
[2024-08-31] MEDS: 0.9 % SODIUM CHLORIDE 10 ML SYRINGE - SALINE FLUSH INJ (11:50)
[2024-08-31] MEDS: IOHEXOL 240 MG/ML - 10 ML VIAL INJ (11:51)
[2024-08-31] MEDS: DEXAMETHASONE SOD PHOS 10 MG/ML VIAL INJ (11:51)
[2024-08-31] MEDS: LIDOCAINE HCL 2% 400 MG/20 ML MDV INJ (11:52)
--- NOTE | 2024-08-31 11:54 | P.ON_ITS ---
Date of procedure: 08/31/24 Pre-op diagnosis: Pain due to lumbar stenosis with neurogenic claudication Post-op diagnosis: same as pre-op Procedure: Procedure: Left L2-3, L3-4 transforaminal epidural steroid injection Medications: Bupivacaine 0.25% 1cc, lidocaine 2% 1cc, dexamethasone 10mg The patient was seen and examined in the preoperative holding area.? Informed consent was obtained and placed on the chart.? Patient was brought to the medical procedure unit and placed in the prone position where a timeout was completed verifying the correct patient, procedure site, position, and planned special equipment using sterile aseptic technique.? Under direct fluoroscopic visualization a 25-gauge Quincke tipped spinal needle was advanced to the designated neural foramen where contrast dye was injected to show adequate spread.? The needle was inserted at level left L2-3. There was no evidence of vascular or adverse uptake.? Epidural spread was appreciated.? The above- mentioned injectate was then placed in a 1.5 mL aliquot preceded by negative aspiration.? The needle was removed. The needle was inserted and the procedure repeated at level left L3-4.? The surgery site was covered.? Patient was taken to the postprocedural recovery area and monitored for an appropriate length of time before found suitable for discharge in the accompaniment of a responsible adult. Anesthesia: Local Surgeon: Mere Woodard Pathology: none sent Condition: stable Disposition: no change
== END 2024-08-31 11:59 | disposition home or self-care (01) ==
LOC: SURGOUT 10:08
PROVIDERS: PCP Family Medicine; Visit Provider Anesthesiology
DX: M48.062 Spinal stenosis, lumbar region with neurogenic claudication (principal); M54.50 Low back pain, unspecified
CPT/HCPCS: 64483; 64484; J0665; J1100; Q9966

== ENCOUNTER 2024-09-10 09:02 | Outpatient (OUT) | payer MEDICARE, SELFPAY ==
--- OUTSIDE RECORDS SUMMARY | 2024-09-10 09:22 | XMS_ITS | CCD ---
Author Organization [facility] Care Team Providers Care Station Mechanic Apprentice Name Role Phone Benji Cantrell MD Unavailable Lisandra Jimenez MD Primary Care Provider LISANDRA JIMENEZ Primary Care Unavailable SERGIO JARVIS Attending Unavailable CHRISKELSEY Admitting Unavailable SERGIO JARVIS Attending Unavailable SERGIO JARVIS Referring Unavailable TONYLISANDRA Primary Care Unavailable Benji Cantrell MD Unavailable FLORENCE ROBINS Attending Unavailable APLINGFLORENCE Referring Unavailable TONY, LISANDRA Varghese Attending Unavailable APLINGFLORENCE Attending Unavailable APLINGFLORENCE Attending [...] Referring Unavailable TONY, LISANDRA Kwong Attending Unavailable JASONDIANA Attending Unavailable TONY, LISANDRA Kwong Attending Unavailable TONY, LISANDRA Kwong Attending Unavailable TONY, LISANDRA Kwong Referring Unavailable Tony , Lisandra Kwong Primary Care Provider Giedraitis , Andrius Red Attending Unavailable Giedraitis , Andrius Vytautas Attending Unavailable Giedraitis MD, Andrius Vytautas Attending Unavailable Giedraitis MD, Andrius Vytautas Attending Unavailable Giedraitis , Andrius Vytautas Attending Unavailable Allergies Allergy Classification Reported Allergen(s) Allergy Type Date of Onset Reaction(s) Facility (20 sources) diphenhydrAMINE Drug Allergy 03-25-20 18 Unknown [facility] (20 sources) Sulfonamides (Antibiotic) Drug Allergy 09-02-19 Other (See Comments) [facility] (1 source) diphenhydrAMINE; Translations: [DIPHENHYDRAMINE HCL] [...] (20 sources) Tachycardia; Translations: [Tachycardia, unspecified] Onset: 09-01-2023 09-13-2023 Episodic Mood disorders (17 sources) Mood disorders [...] BASOPHIL 0.0 X10E9/L Normal 0.0-0.2 [facility] Comment on above: Performed By: #### C BCA, CMP, 14818-4 #### [facility] ([id number]) [address] [place] [address] [place] [address] ABSOLUTE NEUTROPHIL 5.0 X10E9/L Normal 1.5-6.6 [facility] Comment on above: Performed By: #### C BCA, CMP, 37916-6 #### [facility] ([id number]) [address] [place] [address] 13435 Basophils/100 WBC (Bld) 0.2 % Normal [facility] Comment on above: Performed By: #### Deanna BROWN [facility], #### [facility] ([id number]) [address] [place] [address] 84267 Eosinophils (Bld) [#/Vol] 0.1 10*3/uL Normal 0.0-0.4 [facility] Comment on above: Performed By: #### Deanna BROWN [facility], #### [facility] ([id number]) [address] [place] [address] 67093 Eosinophils/100 WBC (Bld) 1.2 % Normal [facility] Comment on above: Performed By: #### Deanna BROWN [facility], #### [facility] ([id number]) [address] [place] [address] 42027 Erythrocyte distribution width (RBC) [Ratio] 13.4 % Normal 11.5-15.0 [facility] Comment on above: Performed By: #### Deanna BROWN [facility], #### [facility] ([id number]) [address] [place] [address] 29878 Hematocrit (Bld) [Volume fraction] 39.6 % Normal 35-47 [facility] Comment on above: Performed By: #### Deanna BROWN [facility], #### [facility] ([id number]) [address] [place] [address] 79312 Hemoglobin (Bld) [Mass/Vol] 13.2 g/dL Normal 11.7-15.5 [facility] Comment on above: Performed By: #### Deanna BROWN CMP, #### [facility] ([id number]) [address] [place] [address] 64299 Lymphocytes (Bld) [#/Vol] 1.0 10*3/uL Normal 1.0-3.5 [facility] Comment on above: Performed By: #### C REDD BROWN, 28507-3 #### [facility] ([id number]) [address] [place] [address] 44966 Lymphocytes/100 WBC (Bld) 14.2 % Normal [facility] Comment on above: Performed By: #### Deanna BROWN CMP, #### [facility] ([id number]) [address] [place] [address] 88373 MCH (RBC) [Entitic mass] 31.0 pg Normal 27-34 [facility] Comment on above: Performed By: #### Deanna BROWN CMP, 68150-3 #### [facility] ([id number]) [address] [place] [address] 28972 MCHC (RBC) [Mass/Vol] 33.4 g/dL Normal 32-36 [facility] Comment on above: Performed By: #### Deanna BROWN CMP, 99060-2 #### [facility] ([id number]) [address] [place] [address] 12712 MCV (RBC) [Entitic vol] 93 fL Normal 80-100 [facility] Comment on above: Performed By: #### Deanna BROWN CMP, #### [facility] ([id number]) [address] [place] [address] 96950 Monocytes (Bld) [#/Vol] 1.2 10*3/uL High 0-0.9 [facility] Comment on above: Performed By: #### Deanna BROWN CMP, #### [facility] ([id number]) [address] [place] [address] 03064 Monocytes/100 WBC (Bld) 16.8 % Normal [facility] Comment on above: Performed By: #### Deanna BROWN CMP, 74399-5 #### [facility] ([id number]) [address] [place] [address] 03301 Neutrophils/100 WBC (Bld) 67.6 % Normal [facility] Comment on above: Performed By: #### C BCA, CMP, #### [facility] ([id number]) [address] [place] [address] 73386 Platelet mean volume (Bld) [Entitic vol] 8.6 fL Normal 7-12 [facility] Comment on above: Performed By: #### C BCA, CMP, #### [facility] ([id number]) [address] [place] [address] 38827 Platelets (Bld) [#/Vol] 172 10*3/uL Normal 150-450 [facility] Comment on above: Performed By: #### C BCA, CMP, #### [facility] ([id number]) [address] [place] [address] 24669 RBC COUNT 4.26 X10E12/L Normal 3.80-5.20 [facility] Comment on above: Performed By: #### C BCA, CMP, 22534-0 #### [facility] ([id number]) [address] [place] [address] 60680 WBC (Bld) [#/Vol] 7.3 10*3/uL Normal 4.0-11.0 [facility] Comment on above: Performed By: #### C BCA, CMP, 33494-6 #### [facility] ([id number]) [address] [place] [address] 68225 COMPREHENSIVE METABOLIC PANE Cruzito 01-12-2024 Albumin [Mass/Vol] 3.8 g/dL Normal 3.2-5.3 [facility] Comment on above: Performed By: #### B MP, LIVR, CBCA #### [facility] ([id number]) [address] [place] [address] 44955 ALP [Catalytic activity/Vol] 49 U/L Normal 39-130 [facility] Comment on above: Performed By: #### B ANJUM LIVR, CBCA #### [facility] ([id number]) [address] [place] [address] 60191 ALT [Catalytic activity/Vol] 28 U/L Normal 0-31 [facility] Comment on above: Performed By: #### B ANJUM, LIVR, CBCA #### [facility] ([id number]) [address] [place] [address] 12821 Anion gap [Moles/Vol] 9 mmol/L Normal 5-15 [facility] Comment on above: Performed By: #### B ANJUM LIVR, CBCA #### [facility] ([id number]) [address] [place] [address] 85875 AST [Catalytic activity/Vol] 31 U/L Normal 0-41 [facility] Comment on above: Performed By: #### B ANJUM LIVR, CBCA #### [facility] ([id number]) [address] [place] [address] 32334 Bilirubin [Mass/Vol] 0.4 mg/dL Normal 0.3-1.2 [facility] Comment on above: Performed By: #### B ANJUM LIVR, CBCA #### [facility] ([id number]) [address] [place] [address] 00369 Calcium [Mass/Vol] 8.5 mg/dL Normal 8.5-10.5 [facility] Comment on above: Performed By: #### B MP, LIVR, CBCA #### [facility] ([id number]) [address] [place] [address] 25871 Chloride [Moles/Vol] 104 mmol/L Normal 98-109 [facility] Comment on above: Performed By: #### B ANJUM LIVNaima CBCA #### [facility] ([id number]) [address] [place] [address] 76435 CO2 [Moles/Vol] 25 mmol/L Normal 22-32 [facility] Comment on above: Performed By: #### B ANJUM LIVNaima, CBCA #### [facility] ([id number]) [address] [place] [address] 44786 Creatinine [Mass/Vol] 0.79 mg/dL Normal 0.40-1.00 [facility] Comment on above: Result Comment: METH OD TRACEABLE TO IDMS STANDARD Performed By: #### B ANJUM LIVNaima CBCRonen #### [facility] ([id number]) [address] [place] [address] 86046 GFR/1.73 sq M.predicted among non-blacks MDRD (S/P/Bld) [Vol rate/Area] 77 mL/min/{1.73_m2} Normal >59 [facility] Comment on above: Result Comment: Reported eGFR is based on the CKD-EPI 2020 equation that does not use a race coefficient. Performed By: #### B ANJUM LIVR, CBCA #### [facility] ([id number]) [address] [place] [address] 82720 Glucose [Mass/Vol] 78 mg/dL Normal 65-99 [facility] Comment on above: Performed By: #### B ANJUM LIVNaima, CBCA #### [facility] ([id number]) [address] [place] [address] 63892 Potassium [Moles/Vol] 3.7 mmol/L Normal 3.5-5.0 [facility] Comment on above: Performed By: #### B ANJUM LIVR, CBCA #### [facility] ([id number]) [address] [place] [address] 64343 Protein [Mass/Vol] 6.8 g/dL Normal 6.0-8.0 [facility] Comment on above: Performed By: #### B ANJUM LIVR, CBCA #### [facility] ([id number]) [address] [place] [address] 97856 Sodium [Moles/Vol] 138 mmol/L Normal 134-146 [facility] Comment on above: Performed By: #### B ANJUM LIVR, CBCA #### [facility] ([id number]) [address] [place] [address] 25652 Urea nitrogen [Mass/Vol] 18 mg/dL Normal 5-27 [facility] Comment on above: Performed By: #### B ANJUM LIVR, CBCA #### [facility] ([id number]) [address] [place] [address] 16390 MAGNESIUMon 01-12-2024 Magnesium [Mass/Vol] 2.2 mg/dL Normal 1.8-2.6 [facility] Comment on above: Performed By: #### B ANJUM LIVR, CBCA #### [facility] ([id number]) [address] [place] [address] 73468 CBC AND AUTO DIFFon 01-11-20 24 ABSOLUTE BASOPHIL 0.0 X10E9/L Normal 0.0-0.2 [facility] Comment on above: Performed By: #### C KEVIN, CMP, 87858-5, THYR #### [facility] ([id number]) [address] [place] [address] 14137 ABSOLUTE NEUTROPHIL 4.2 X10E9/L Normal 1.5-6.6 [facility] Comment on above: Performed By: #### C BCA, CMP, , THYR #### [facility] ([id number]) [address] [place] [address] 98686 Basophils/100 WBC (Bld) 0.2 % Normal [facility] Comment on above: Performed By: #### C REDD BROWN, , THYR #### [facility] ([id number]) [address] [place] [address] 57566 Eosinophils (Bld) [#/Vol] 0.0 10*3/uL Normal 0.0-0.4 [facility] Comment on above: Performed By: #### Deanna BROWN CMP, , THYR #### [facility] ([id number]) [address] [place] [address] 43724 Eosinophils/100 WBC (Bld) 0.2 % Normal [facility] Comment on above: Performed By: #### Deanna BROWN CMP, , THYR #### [facility] ([id number]) [address] [place] [address] 87134 Erythrocyte distribution width (RBC) [Ratio] 13.1 % Normal 11.5-15.0 [facility] Comment on above: Performed By: #### Deanna BROWN CMP, , THYR #### [facility] ([id number]) [address] [place] [address] 79045 Hematocrit (Bld) [Volume fraction] 37.4 % Normal 35-47 [facility] Comment on above: Performed By: #### Deanna BROWN CMP, , THYR #### [facility] ([id number]) [address] [place] [address] 07152 Hemoglobin (Bld) [Mass/Vol] 12.7 g/dL Normal 11.7-15.5 [facility] Comment on above: Performed By: #### Deanna BROWN CMP, , THYR #### [facility] ([id number]) [address] [place] [address] 40698 Lymphocytes (Bld) [#/Vol] 0.9 10*3/uL Low 1.0-3.5 [facility] Comment on above: Performed By: #### C REDD BROWN, , THYR #### [facility] ([id number]) [address] [place] [address] 01909 Lymphocytes/100 WBC (Bld) 13.6 % Normal [facility] Comment on above: Performed By: #### C REDD BROWN, , THYR #### [facility] ([id number]) [address] [place] [address] 70004 MCH (RBC) [Entitic mass] 31.2 pg Normal 27-34 [facility] Comment on above: Performed By: #### C REDD BROWN, , THYR #### [facility] ([id number]) [address] [place] [address] 48732 MCHC (RBC) [Mass/Vol] 33.9 g/dL Normal 32-36 [facility] Comment on above: Performed By: #### C REDD BROWN, , THYR #### [facility] ([id number]) [address] [place] [address] 01284 MCV (RBC) [Entitic vol] 92 fL Normal 80-100 [facility] Comment on above: Performed By: #### C KEVIN CMP, , THYR #### [facility] ([id number]) [address] [place] [address] 02731 Monocytes (Bld) [#/Vol] 1.2 10*3/uL High 0-0.9 [facility] Comment on above: Performed By: #### C KEVIN CMP, , THYR #### [facility] ([id number]) [address] [place] [address] 58450 Monocytes/100 WBC (Bld) 19.3 % Normal [facility] Comment on above: Performed By: #### C BCA, CMP, , THYR #### [facility] ([id number]) [address] [place] [address] 52548 Neutrophils/100 WBC (Bld) 66.7 % Normal [facility] Comment on above: Performed By: #### C BCA, CMP, , THYR #### [facility] ([id number]) [address] [place] [address] 44422 Platelet mean volume (Bld) [Entitic vol] 8.3 fL Normal 7-12 [facility] Comment on above: Performed By: #### C KEVIN, CMP, , THYR #### [facility] ([id number]) [address] [place] [address] 00879 Platelets (Bld) [#/Vol] 174 10*3/uL Normal 150-450 [facility] Comment on above: Performed By: #### C BCA, CMP, , THYR #### [facility] ([id number]) [address] [place] [address] 61284 RBC COUNT 4.06 X10E12/L Normal 3.80-5.20 [facility] Comment on above: Performed By: #### C BCA, CMP, , THYR #### [facility] ([id number]) [address] [place] [address] 12072 WBC (Bld) [#/Vol] 6.3 10*3/uL Normal 4.0-11.0 [facility] Comment on above: Performed By: #### C BCA, CMP, , THYR #### [facility] ([id number]) [address] [place] [address] 42161 COMPREHENSIVE METABOLIC PANE Cruzito 01-11-2024 Albumin [Mass/Vol] 3.6 g/dL Normal 3.2-5.3 [facility] Comment on above: Performed By: #### C BCA, CMP, , THYR #### [facility] ([id number]) [address] [place] [address] 59961 ALP [Catalytic activity/Vol] 47 U/L Normal 39-130 [facility] Comment on above: Performed By: #### C BCA, CMP, , THYR #### [facility] ([id number]) [address] [place] [address] 92419 ALT [Catalytic activity/Vol] 27 U/L Normal 0-31 [facility] Comment on above: Performed By: #### C BCA, CMP, , THYR #### [facility] ([id number]) [address] [place] [address] 82879 Anion gap [Moles/Vol] 9 mmol/L Normal 5-15 [facility] Comment on above: Performed By: #### C BCA, CMP, , THYR #### [facility] ([id number]) [address] [place] [address] 50120 AST [Catalytic activity/Vol] 28 U/L Normal 0-41 [facility] Comment on above: Performed By: #### C BCA, CMP, , THYR #### [facility] ([id number]) [address] [place] [address] 12167 Bilirubin [Mass/Vol] 0.5 mg/dL Normal 0.3-1.2 [facility] Comment on above: Performed By: #### C BCA, CMP, , THYR #### [facility] ([id number]) [address] [place] [address] 97719 Calcium [Mass/Vol] 8.5 mg/dL Normal 8.5-10.5 [facility] Comment on above: Performed By: #### C BCA, CMP, , THYR #### [facility] ([id number]) [address] [place] [address] 81011 Chloride [Moles/Vol] 106 mmol/L Normal 98-109 [facility] Comment on above: Performed By: #### C KEVIN CMP, , THYR #### [facility] ([id number]) [address] [place] [address] 80771 CO2 [Moles/Vol] 24 mmol/L Normal 22-32 [facility] Comment on above: Performed By: #### C REDD BROWN, , THYR #### [facility] ([id number]) [address] [place] [address] 37475 Creatinine [Mass/Vol] 0.74 mg/dL Normal 0.40-1.00 [facility] Comment on above: Result Comment: METH OD TRACEABLE TO IDMS STANDARD Performed By: #### C REDD BROWN, , THYR #### [facility] ([id number]) [address] [place] [address] 59868 GFR/1.73 sq M.predicted among non-blacks MDRD (S/P/Bld) [Vol rate/Area] 83 mL/min/{1.73_m2} Normal >59 [facility] Comment on above: Result Comment: Reported eGFR is based on the CKD-EPI 2020 equation that does not use a race coefficient. Performed By: #### C REDD BROWN, , THYR #### [facility] ([id number]) [address] [place] [address] 07499 Glucose [Mass/Vol] 91 mg/dL Normal 65-99 [facility] Comment on above: Performed By: #### C KEVIN CMP, , THYR #### [facility] ([id number]) [address] [place] [address] 82608 Potassium [Moles/Vol] 3.7 mmol/L Normal 3.5-5.0 [facility] Comment on above: Performed By: #### C REDD BROWN, , THYR #### [facility] ([id number]) [address] [place] [address] 44103 Protein [Mass/Vol] 6.5 g/dL Normal 6.0-8.0 [facility] Comment on above: Performed By: #### C REDD BROWN, , THYR #### [facility] ([id number]) [address] [place] [address] 70461 Sodium [Moles/Vol] 139 mmol/L Normal 134-146 [facility] Comment on above: Performed By: #### C REDD BROWN, , THYR #### [facility] ([id number]) [address] [place] [address] 50797 Urea nitrogen [Mass/Vol] 15 mg/dL Normal 5-27 [facility] Comment on above: Performed By: #### C REDD BROWN, , THYR #### [facility] ([id number]) [address] [place] [address] 97983 MAGNESIUMon 01-11-2024 Magnesium [Mass/Vol] 2.6 mg/dL Normal 1.8-2.6 [facility] Comment on above: Performed By: #### 1 9123-9 #### [facility] ([id number]) [address] [place] [address] 30759 Magnesium [Mass/Vol] 1.8 mg/dL Normal 1.8-2.6 [facility] Comment on above: Performed By: #### C REDD BROWN, , THYR #### [facility] ([id number]) [address] [place] [address] 90668 THYROID PROFILEon 01-11-2024 Free T4 [Mass/Vol] 0.81 ng/dL Normal 0.61-1.60 [facility] Comment on above: Performed By: #### C BCA, CMP, 19498-2, THYR #### [facility] ([id number]) [address] [place] [address] 81532 TSH 0.64 uIU/mL Normal 0.49-4.67 [facility] Comment on above: Performed By: #### C BCA, CMP, , THYR #### [facility] ([id number]) [address] [place] [address] 67666 BASIC METABOLIC PANLon 01-09 Anion gap [Moles/Vol] 7 mmol/L Normal 5-15 [facility] Comment on above: Performed By: #### B MP, LIVR, CBCA #### [facility] ([id number]) [address] [place] [address] 64268 Calcium [Mass/Vol] 8.3 mg/dL Low 8.5-10.5 [facility] Comment on above: Performed By: #### B ANJUM LIVR, CBCA #### [facility] ([id number]) [address] [place] [address] 15892 Chloride [Moles/Vol] 106 mmol/L Normal 98-109 [facility] Comment on above: Performed By: #### B MP, LIVR, CBCA #### [facility] ([id number]) [address] [place] [address] [place] [address] CO2 [Moles/Vol] 22 mmol/L Normal 22-32 [facility] Comment on above: Performed By: #### B MP, LIVR, CBCA #### [facility] ([id number]) [address] [place] [address] 58725 Creatinine [Mass/Vol] 0.90 mg/dL Normal 0.40-1.00 [facility] Comment on above: Result Comment: METH OD TRACEABLE TO IDMS STANDARD Performed By: #### B MP, LIVR, CBCA #### [facility] ([id number]) [address] [place] [address] 77470 GFR/1.73 sq M.predicted among non-blacks MDRD (S/P/Bld) [Vol rate/Area] 65 mL/min/{1.73_m2} Normal >59 [facility] Comment on above: Result Comment: Reported eGFR is based on the CKD-EPI 2020 equation that does not use a race coefficient. Performed By: #### B MP, LIVR, CBCA #### [facility] ([id number]) [address] [place] [address] 39872 Glucose [Mass/Vol] 100 mg/dL High 65-99 [facility] Comment on above: Performed By: #### B MP, LIVR, CBCA #### [facility] ([id number]) [address] [place] [address] 90067 Potassium [Moles/Vol] 4.9 mmol/L Normal 3.5-5.0 [facility] Comment on above: Result Comment: SPEC IMEN HEMOLYZED, RESULTS INCREASED Performed By: #### B MP, LIVR, CBCA #### [facility] ([id number]) [address] [place] [address] 02440 Sodium [Moles/Vol] 135 mmol/L Normal 134-146 [facility] Comment on above: Performed By: #### B MP, LIVR, CBCA #### [facility] ([id number]) [address] [place] [address] 80270 Urea nitrogen [Mass/Vol] 19 mg/dL Normal 5-27 [facility] Comment on above: Performed By: #### B MP, LIVR, CBCA #### [facility] ([id number]) [address] [place] [address] [id number] CBC AND AUTO DIFFon 01-10-20 24 ABSOLUTE BASOPHIL 0.0 X10E9/L Normal 0.0-0.2 [facility] Comment on above: Performed By: #### B ANJUM LIVR, CBCA #### [facility] ([id number]) [address] [place] [address] 74527 ABSOLUTE NEUTROPHIL 5.2 X10E9/L Normal 1.5-6.6 [facility] Comment on above: Performed By: #### B MP, LIVR, CBCA #### [facility] ([id number]) [address] [place] [address] 54823 Basophils/100 WBC (Bld) 0.2 % Normal [facility] Comment on above: Performed By: #### B MP, LIVR, CBCA #### [facility] ([id number]) [address] [place] [address] 10529 Eosinophils (Bld) [#/Vol] 0.0 10*3/uL Normal 0.0-0.4 [facility] Comment on above: Performed By: #### B ANJUM, LIVR, CBCA #### [facility] ([id number]) [address] [place] [address] 93676 Eosinophils/100 WBC (Bld) 0.2 % Normal [facility] Comment on above: Performed By: #### B MP, LIVR, CBCA #### [facility] ([id number]) [address] [place] [address] 62153 Erythrocyte distribution width (RBC) [Ratio] 13.2 % Normal 11.5-15.0 [facility] Comment on above: Performed By: #### B MP, LIVR, CBCA #### [facility] ([id number]) [address] [place] [address] 33858 Hematocrit (Bld) [Volume fraction] 36.7 % Normal 35-47 [facility] Comment on above: Performed By: #### B MP, LIVR, CBCA #### [facility] ([id number]) [address] [place] [address] 71127 Hemoglobin (Bld) [Mass/Vol] 12.5 g/dL Normal 11.7-15.5 [facility] Comment on above: Performed By: #### B MP, LIVR, CBCA #### [facility] ([id number]) [address] [place] [address] 74041 Lymphocytes (Bld) [#/Vol] 0.7 10*3/uL Low 1.0-3.5 [facility] Comment on above: Performed By: #### B MP, LIVR, CBCA #### [facility] ([id number]) [address] [place] [address] 66355 Lymphocytes/100 WBC (Bld) 9.9 % Normal [facility] Comment on above: Performed By: #### B MP, LIVR, CBCA #### [facility] ([id number]) [address] [place] [address] 67284 MCH (RBC) [Entitic mass] 31.4 pg Normal 27-34 [facility] Comment on above: Performed By: #### B MP, LIVR, CBCA #### [facility] ([id number]) [address] [place] [address] 25508 MCHC (RBC) [Mass/Vol] 34.0 g/dL Normal 32-36 [facility] Comment on above: Performed By: #### B MP, LIVR, CBCA #### [facility] ([id number]) [address] [place] [address] 15212 MCV (RBC) [Entitic vol] 92 fL Normal 80-100 [facility] Comment on above: Performed By: #### B MP, LIVR, CBCA #### [facility] ([id number]) [address] [place] [address] 66522 Monocytes (Bld) [#/Vol] 1.0 10*3/uL High 0-0.9 [facility] Comment on above: Performed By: #### B MP, LIVR, CBCA #### [facility] ([id number]) [address] [place] [address] 22905 Monocytes/100 WBC (Bld) 14.7 % Normal [facility] Comment on above: Performed By: #### B MP, LIVR, CBCA #### [facility] ([id number]) [address] [place] [address] 10480 Neutrophils/100 WBC (Bld) 75.0 % Normal [facility] Comment on above: Performed By: #### B MP, LIVR, CBCA #### [facility] ([id number]) [address] [place] [address] [place] [address] Platelet mean volume (Bld) [Entitic vol] 8.1 fL Normal 7-12 [facility] Comment on above: Performed By: #### B MP, LIVR, CBCA #### [facility] ([id number]) [address] [place] [address] 86223 Platelets (Bld) [#/Vol] 173 10*3/uL Normal 150-450 [facility] Comment on above: Performed By: #### B MP, LIVR, CBCA #### [facility] ([id number]) [address] [place] [address] 94235 RBC COUNT 3.97 X10E12/L Normal 3.80-5.20 [facility] Comment on above: Performed By: #### B MP, LIVR, CBCA #### [facility] ([id number]) [address] [place] [address] 62639 WBC (Bld) [#/Vol] 6.9 10*3/uL Normal 4.0-11.0 [facility] Comment on above: Performed By: #### B MP, LIVR, CBCA #### [facility] ([id number]) [address] [place] [address] 71435 LIVER PANELon 01-10-2024 Albumin [Mass/Vol] 3.9 g/dL Normal 3.2-5.3 [facility] Comment on above: Performed By: #### B MP, LIVR, CBCA #### [facility] ([id number]) [address] [place] [address] 41789 ALP [Catalytic activity/Vol] 47 U/L Normal 39-130 [facility] Comment on above: Performed By: #### B MP, LIVR, CBCA #### [facility] ([id number]) [address] [place] [address] 07740 ALT [Catalytic activity/Vol] 23 U/L Normal 0-31 [facility] Comment on above: Result Comment: SPEC IMEN HEMOLYZED, RESULTS INCREASED Performed By: #### B MP, LIVR, CBCA #### [facility] ([id number]) [address] [place] [address] 02227 AST [Catalytic activity/Vol] 44 U/L High 0-41 [facility] Comment on above: Result Comment: SPEC IMEN HEMOLYZED, RESULTS INCREASED Performed By: #### B MP, LIVR, CBCA #### [facility] ([id number]) [address] [place] [address] 91278 Bilirubin [Mass/Vol] 1.3 mg/dL High 0.3-1.2 [facility] Comment on above: Result Comment: RESU LTS QUESTIONABLE DUE TO HEMOLYSIS Performed By: #### B MP, LIVR, CBCA #### [facility] ([id number]) [address] [place] [address] 51736 Bilirubin.direct [Mass/Vol] 0.4 mg/dL Normal 0.0-0.4 [facility] Comment on above: Performed By: #### B MP, LIVR, CBCA #### [facility] ([id number]) [address] [facility], [place] [address] Protein [Mass/Vol] 7.0 g/dL Normal 6.0-8.0 [facility] Comment on above: Result Comment: SPEC IMEN HEMOLYZED, RESULTS INCREASED Performed By: #### B MP, LIVR, CBCA #### [facility] ([id number]) [address] [facility], [place] [address] Laboratory - Microbiology an d Antimicrobial susceptibilityon 01-10-2024 SARS-CoV-2 (COVID-19) RNA [facility]+probe Ql (Unsp spec) Positive [facility] No Panel Informationon 01-09 FLU A Negative [facility] FLU B Negative [facility] Interpretation and review of laboratory results Abnormal [facility] XR CHEST 1 VWon 01-10-2024 [...] Lockett MD on 01/10/2024 8:08 PM Normal [facility] Urinalysis macro (dipstick) panel (U)on 01-07-2024 Bilirubin, UA Negative Negative - 4(70) +++ mg/dL [facility] Blood, UA Negative Negative - 50 Dallin/mcL [facility] Clarity, UA Clear [facility] Color, UA Light Yellow [facility] are Glucose, UA Negative Negative - 2000(110) ++++ mg/dL [facility] Interpretation and review of laboratory results Normal [facility] Ketones, UA Negative Negative - 160(16) ++++ mg/dL [facility] Leukocytes, UA Negative Negative - 500+++ José/mcL [facility] Nitrite, UA Negative Negative - Positive [facility] pH, UA 6.0 5 - 9 [facility] [employer] Protein, UA Negative Negative - 2000(20) ++++ mg/dL [facility] Spec Grav, UA 1.010 1 - 1.03 [facility] Urobilinogen, UA 0.2 0.2 - 12 mg/dL [facility] Lumbar spine 4 [facility] Result: June 05, 2023 x-rays AP lateral and lateral flexion-extension views of the lumbar spine demonstrate severe scoliosis apex to the right at the thoracolumbar junction of nearly 90 degrees curvature in the coronal plane. There are no definitive fractures identified. Impression: Severe scoliosis Corwin Lui D.O. [facility] XR Lumbar spine 4 ViewsOrder ed By: Andrea Lui on 06-06-2023 [facility] [employer] [facility] Work Phone: XR Lumbar spine 4 [facility]iology Study observation (narrative) [facility] SCREENING MAMMOGRAM W/JORDAN, BILATERAL*on 04-10-2021 SCREENING MAMMOGRAM [...] by Filiberto Love on 04/10/[address] [facility] Pathology Supervisor Vital Signs Date Time Vital Sign Value Performing Clinician Farhad rodriguez 05-11-2024 15:02-0500 Body height 153.7 cm Lisandra Jimenez MD Work Phone: [facility] 05-11-2024 15:02-0500 Body mass index (BMI) [Ratio] 21.36 kg/m2 Lisandra Jimenez MD Work Phone: [facility] 05-11-2024 15:02-0500 Body weight 50.44 kg Lisandra Jimenez MD Work Phone: [facility] 05-11-2024 15:02-0500 Diastolic blood pressure 64 mm[Hg] Lisandra Jimenez MD Work Phone: [facility] 05-11-2024 15:02-0500 Heart rate 65 /min Lisandra Jimenez MD Work Phone: [facility] 05-11-2024 15:02-0500 Respiratory rate 18 /min Lisandra Jimenez MD Work Phone: [facility] 05-11-2024 15:02-0500 SaO2% (BldA) [Mass fraction] 99 % Lisandra Jimenez MD Work Phone: [facility] 05-11-2024 15:02-0500 Systolic blood pressure 112 mm[Hg] Lisandra Jimenez MD Work Phone: [facility] 02-03-2024 09:06-0400 Body height 153.7 cm Lisandra Jimenez MD Work Phone: [facility] 02-03-2024 09:06-0400 Body mass index (BMI) [Ratio] 21.32 kg/m2 Lisandra Jimenez MD Work Phone: [facility] 02-03-2024 09:06-0400 Body weight 50.35 kg Lisandra Jimenez MD Work Phone: [facility] 02-03-2024 09:06-0400 Heart rate 83 /min Lisandra Jimenez MD Work Phone: [facility] 02-03-2024 09:06-0400 SaO2% (BldA) [Mass fraction] 94 % Lisandra Jimenez MD Work Phone: [facility] 01-10-2024 16:07-0400 Body height 154.9 cm Diana Gomez MD Work Phone: [facility] 01-10-2024 16:07-0400 Body temperature 98.8 [degF] Diana Gomez MD Work Phone: [facility] 01-10-2024 16:07-0400 Diastolic blood pressure 78 mm[Hg] Diana Gomez MD Work Phone: [facility] 01-10-2024 16:07-0400 Heart rate 122 /min Diana Gomez MD Work Phone: [facility] 01-10-2024 16:07-0400 SaO2% (BldA) [Mass fraction] 93 % Diana Gomez MD Work Phone: [facility] 01-10-2024 16:07-0400 Systolic blood pressure 122 mm[Hg] Diana Gomez MD Work Phone: [facility] 01-07-2024 13:02-0400 Body height 154.9 cm Lisandra Jimenez MD Work Phone: [facility] 01-07-2024 13:02-0400 Body mass index (BMI) [Ratio] 21.54 kg/m2 Lisandra Jimenez MD Work Phone: [facility] 01-07-2024 13:02-0400 Body weight 51.71 kg Lisandra Jimenez MD Work Phone: [facility] 01-07-2024 13:02-0400 Diastolic blood pressure 78 mm[Hg] Lisandra Jimenez MD Work Phone: [facility] 01-07-2024 13:02-0400 Heart rate 65 /min Lisandra Jimenez MD Work Phone: [facility] 01-07-2024 13:02-0400 Respiratory rate 18 /min Lisandra Jimenez MD Work Phone: [facility] 01-07-2024 13:02-0400 SaO2% (BldA) [Mass fraction] 97 % Lisandra Jimenez MD Work Phone: [facility] 01-07-2024 13:02-0400 Systolic blood pressure 122 mm[Hg] Lisandra Jimenez MD Work Phone: [facility] 06-10-2023 10:05-0500 Body height 154.9 cm Lisandra Jimenez MD Work Phone: [facility] 06-10-2023 10:05-0500 Body mass index (BMI) [Ratio] 20.6 kg/m2 Lisandra Jimenez MD Work Phone: [facility] 06-10-2023 10:05-0500 Body weight 49.44 kg Lisandra Jimenez MD Work Phone: [facility] 06-10-2023 10:05-0500 Diastolic blood pressure 68 mm[Hg] Lisandra Jimenez MD Work Phone: [facility] 06-10-2023 10:05-0500 Heart rate 76 /min Lisandra Jimenez MD Work Phone: [facility] 06-10-2023 10:05-0500 Respiratory rate 16 /min Lisandra Jimenez MD Work Phone: [facility] 06-10-2023 10:05-0500 Systolic blood pressure 130 mm[Hg] Lisandra Jimenez MD Work Phone: [facility] Encounters Encounter Date Encounter Type Care Provider Facility Start: 08-10-2024 End: 08-10-2024 ambulatory Mere Woodard MD Facility:[facility] Start: 05-15-2024 End: 05-15-2024 ambulatory LISANDRA JIMENEZ [...] 03-30-2024 End: 03-30-2024 ambulatory Mere Woodard MD Facility:[facility] Start: 03-23-2024 End: 03-23-2024 ambulatory Mere Woodard MD Facility:[facility] Start: 03-03-2024 End: 03-03-2024 Refill Lisandra Jimenez MD Work Phone: [facility] Comment on above: Gastroesophageal ref lux disease without esophagitis; Mixed stress and urge urinary incontinence; Tachycardia; Age-related osteoporosis without current pathological fracture ([facility] Start: 02-03-2024 End: 02-03-2024 Bamboo flowsheet Lisandra [...] 01-13-2024 Emergency department patient visit SERGIO JARVIS [facility] Start: 01-10-2024 End: 01-12-2024 ambulatory LISANDRA JIMENEZ [facility] Start: 01-10-2024 End: 01-10-2024 ambulatory [...] 08-23-2023 ambulatory YANETH DUPREE Not Available Start: 08-02-2023 Telephone encounter Maya Villalobos RN [facility] Comment on above: Records, transfer to [facility] Start: 07-30-2023 End: 07-30-2023 ambulatory LISANDRA JIMENEZ [...] loss; Age-related osteoporosis without current pathological fracture ([facility] Start: 06-10-2023 End: 06-10-2023 Patient encounter status [...] 06-05-2023 Office outpatient visit 15 minutes Florence Henrqiue Julienne HEALTHCARE SPECIALIST Work Phone: [facility] Comment on [...] lumbosac ral minimum 4 views Florence Robins HEALTHCARE SPECIALIST Work Phone: Plan of Treatment Date Care Activity Detail Author Start: 06-10-2024 Medicare Annual Wellness (AWV) Medicare Annual Wellness (AWV) [facility] Start: 05-15-2024 End: 05-15-2024 Professional / ancillary services management 05/15/2024 10:00 AM EST Ancillary Procedure [facility] [address] [place] [address] [facility] Start: 05-11-2024 [...] EDT Office Visit [facility] [address] [place] [address] Lisandra Jimenez MD [address] [facility] [place] [address] Arrived [facility] Comment on above: Arrived Start: 01-02-2024 Adult BMI Screening Adult BMI Screen ing [facility] Start: 12-29-2023 Influenza vaccination [facility] Start: 12-29-2023 Tobacco Screening Tobacco Screening [facility] Start: 12-09-2023 End: 12-09-2023 Patient encounter procedure 12/09/2023 9:40 AM EDT Office Visit [facility] [address] [place] [address] Lisandra Jimenez MD [address] [facility] [place] [address] [facility] Start: 08-01-2023 Medicare Annual Wellness (AWV) Medicare Annual Wellness (AWV) [facility] Start: 07-30-2023 End: 07-30-2023 Patient encounter procedure 07/30/2023 9:00 AM EDT Office Visit [facility] [address] [facility] [address] Lisandra Jimenez MD [address] [facility] [place] [address] [facility] Start: 07-01-2023 End: 07-01-2023 Patient encounter procedure 07/01/2023 9:00 AM EST Office Visit [facility] [address] [facility] [address] [place] [address] Florence Robins NP [address] [place] [address] [facility] Start: 06-26-2023 End: 06-26-2023 Patient encounter procedure 06/26/2023 10:00 AM EST Office Visit [facility] [address] [facility] [address] [place] [address] Florence Robins, HEALTHCARE SPECIALIST [address] [place] [address] [facility] Start: 06-10-2023 End: 06-10-2023 Patient encounter procedure [facility] Comment on above: Arrived Start: 02-10-2023 DTaP,Tdap and Td Vaccines (3 - Td or Tdap) DTaP,Tdap and Td Vaccines (3 - Td or Tdap) [facility] Start: 12-28-2022 COVID-19 Vaccine ( season) COVID-19 Vaccine ( season) [facility] Start: 2010 Fall Risk Screening Fall Risk Screen ing [facility] Start: 1957 Depression Screening Depression Scre [facility] Start: 1945 Medicare Annual Wellness Visit Medicare Annual Wellness Visit [facility] Immunizations Immunization Date Immunization Notes Care Provider Fa cility 02-03-2024 influenza, high dose seasonal, preservative-free Lisandra Jimenez MD Work Phone: [facility] 04-08-2023 RSV, recombinant, protein subunit RSVpreF, adjuvant reconstitu, 120mcg/0.5mL, PF (Arexvy) Lisandra Jimenez MD Work Phone: [facility] 01-28-2023 Influenza, High-dose Seasonal, Quadrivalent, Preservative Free Loli Rivera HEALTHCARE SPECIALIST Work Phone: [facility] Work Phone: 01-28-2023 influenza virus vacc ine, unspecified formulation Lisandra Jimenez MD Work Phone: [facility] 02-06-2022 Influenza, High-dose Seasonal, Quadrivalent, Preservative Free Loli Rivera HEALTHCARE SPECIALIST Work Phone: [facility] 02-06-2022 Moderna Bivalent Price ster Vaccination Loli Rivera HEALTHCARE SPECIALIST Work Phone: [facility] 02-06-2022 Moderna SARS-CoV-2 50mcg/0.5mL Booster Loli Rivera HEALTHCARE SPECIALIST Work Phone: [facility] 02-06-2022 influenza virus vacc ine, unspecified formulation Maya Villalobos RN [facility] 01-26-2021 Influenza, High-dose Seasonal, Quadrivalent, Preservative Free Loli Rivera HEALTHCARE SPECIALIST Work Phone: [facility] 01-27-2020 Influenza, High-dose Seasonal, Quadrivalent, Preservative Free Loli Rivera HEALTHCARE SPECIALIST Work Phone: [facility] 03-12-2019 zoster vaccine recombinant Loli Rivera HEALTHCARE SPECIALIST Work Phone: [facility] 01-26-2019 zoster vaccine, live Loli W olf HEALTHCARE SPECIALIST Work Phone: [facility] 01-22-2019 influenza, high dose seasonal, preservative-free Loli Rivera HEALTHCARE SPECIALIST Work Phone: [facility] 01-22-2019 Influenza, High-dose Seasonal, Quadrivalent, Preservative Free Loli Rivera HEALTHCARE SPECIALIST Work Phone: [facility] 01-22-2019 zoster vaccine recombinant Loli Rivera HEALTHCARE SPECIALIST Work Phone: [facility] 01-20-2018 influenza, high dose seasonal, preservative-free Loli Rivera HEALTHCARE SPECIALIST Work Phone: [facility] 01-20-2018 influenza, injectabl e, quadrivalent, preservative free Loli Rivera HEALTHCARE SPECIALIST Work Phone: [facility] 01-18-2017 influenza, high dose seasonal, preservative-free Loli Rivera HEALTHCARE SPECIALIST Work Phone: [facility] 01-18-2017 Influenza, High-dose Seasonal, Quadrivalent, Preservative Free Loli Rivera HEALTHCARE SPECIALIST Work Phone: [facility] 01-17-2016 influenza, high dose seasonal, preservative-free Loli Rivera HEALTHCARE SPECIALIST Work Phone: [facility] 01-17-2016 pneumococcal conjuga te vaccine, 13 valent Loli Rivera HEALTHCARE SPECIALIST Work Phone: [facility] 01-12-2015 influenza, high dose seasonal, preservative-free Loli Rivera HEALTHCARE SPECIALIST Work Phone: [facility] 01-11-2014 influenza, high dose seasonal, preservative-free Loli Rivera HEALTHCARE SPECIALIST Work Phone: [facility] 02-10-2013 tetanus and diphther ia toxoids, adsorbed, preservative free, for adult use (5 Lf of tetanus toxoid and 2 Lf of diphtheria toxoid) Loli Rivera HEALTHCARE SPECIALIST Work Phone: [facility] 02-10-2013 tetanus toxoid, redu jessica diphtheria toxoid, and acellular pertussis vaccine, adsorbed Loli Rivera HEALTHCARE SPECIALIST Work Phone: [facility] 02-06-2013 seasonal influenza, intradermal, preservative free Loli Rivera HEALTHCARE SPECIALIST Work Phone: [facility] 12-23-2012 zoster vaccine, live Loli W olf HEALTHCARE SPECIALIST Work Phone: [facility] 12-12-2012 pneumococcal polysaccharide vaccine, 23 valent Loli Rivera HEALTHCARE SPECIALIST Work Phone: [facility] 02-06-2012 influenza, seasonal, injectable, preservative free Loli Rivera HEALTHCARE SPECIALIST Work Phone: [facility] 04-17-2004 influenza, seasonal, injectable Loli Rivera HEALTHCARE SPECIALIST Work Phone: [facility] 04-27-2003 influenza, seasonal, injectable Loli Rivera HEALTHCARE SPECIALIST Work Phone: [facility] 04-27-2002 influenza, seasonal, injectable Loli Rivera HEALTHCARE SPECIALIST Work Phone: [facility] 04-01-2001 influenza, seasonal, injectable Loli Rivera HEALTHCARE SPECIALIST Work Phone: [facility] 03-08-1999 pneumococcal polysaccharide vaccine, 23 valent Loli Rivera HEALTHCARE SPECIALIST Work Phone: [facility] Payers Date Payer Category Payer Private Health Insurance 2021 Medicaid [employer] MEDICARE A DVANTAGE [id number] 2021 Medicare [id number] 2021 Medicare [id number] 1945 Unknown [id number] 2.16.840.1.803211.3.579.2. 128 1945 Unknown [id number] 2.16.840.1.483722.3.579.2. 128 1945 Unknown [id number] 2.16.840.1.268733.3.579.2. 1258 1945 Unknown [id number] 2.16.840.1.958505.3.579.2. 1258 1945 Unknown [id number] 2.16.840.1.984808.3.579.2. 1258 1945 Unknown [id number] 2.16.840.1.646462.3.579.2. 125 1945 Unknown [id number] 2.16.840.1.381074.3.579.2. 125 1945 Unknown [id number] 2.16.840.1.545059.3.579.2. 125 1945 Unknown [id number] 2.16.840.1.647250.3.579.2. 1258 1945 Unknown [id number] 2.16.840.1.546055.3.579.2. 125 1945 Unknown [id number] 2.16.840.1.380678.3.579.2. 125 1945 Unknown [id number] 2.16.840.1.898615.3.579.2. 1258 1945 Unknown [id number] 2.16.840.1.032127.3.579.2. 1258 1945 Unknown [id number] 2.16.840.1.096625.3.579.2. 1258 1945 Unknown [id number] 2.16.840.1.745087.3.579.2. 1258 1945 Unknown [id number] 2.16.840.1.786010.3.579.2. 1258 1945 Unknown [id number] 2.16.840.1.006195.3.579.2. 1258 1945 Unknown [id number] 2.840.1.774266.3.579.2. 1258 1945 Unknown [id number] 2.16.840.1.390961.3.579.2. 1258 1945 Unknown [id number] 2.16.840.1.128889.3.579.2. 1258 1945 Unknown [id number] 2..840.1.918622.3.579.2. 1258 1945 Unknown [id number] 2.840.1.763582.3.579.2. 1258 1945 Unknown [id number] 2.16.840.1.620756.3.579.2. 1258 1945 Unknown [id number] 2.16.840.1.224406.3.579.2. 1258 1945 Unknown [id number] 2.16.840.1.222253.3.579.2. 1258 1945 Unknown [id number] 2.16.840.1.768383.3.579.2. 1258 1945 Unknown [id number] 2.16.840.1.304514.3.579.2. 125 1945 Unknown [id number] 2.16.840.1.855704.3.579.2. 1258 1945 Unknown [id number] 2.16.840.1.017917.3.579.2. 1258 1945 Unknown [id number] 2.16.840.1.041452.3.579.2. 1258 1945 Unknown [id number] 2.16.840.1.626185.3.579.2. 1258 1945 Unknown [id number] 2.16.840.1.658515.3.579.2. 1258 1945 Unknown [id number] 2.16.840.1.572690.3.579.2. 1258 1945 Unknown [id number] 2.16.840.1.780623.3.579.2. 1258 1945 Unknown [id number] 2.16.840.1.641991.3.579.2. 1258 1945 Unknown [id number] 2.16.840.1.615874.3.579.2. 1258 1945 Unknown [id number] 2.16.840.1.767559.3.579.2. 1258 1945 Unknown [id number] 2.16.840.1.274003.3.579.2. 1258 1945 Unknown [id number] 2.16.840.1.319477.3.579.2. 1258 1945 Unknown [id number] 2.16.840.1.831166.3.579.2. 1258 1945 Unknown [id number] 2.16.840.1.142167.3.579.2. 1258 1945 Unknown [id number] 2.16.840.1.213733.3.579.2. 1259 1945 Unknown [id number] 2.16.840.1.685740.3.579.2. 196 1945 Unknown [id number] 2.16.840.1.286401.3.579.2. 196 1945 Unknown [id number] 2.16.840.1.570562.3.579.2. 196 1945 Unknown [id number] 2.16.840.1.205309.3.579.2. 196 1945 Unknown [id number] 2.16.840.1.890984.3.579.2. 196 Social History Date Type Detail Facility Start: 05-24-2022 End: 10-10-2022 Tobacco smoking status KYIS Never smoked tobacco [facility] Start: 05-24-2022 [...] partner or ex-partner? No [facility] Attends [employer] Not on file [facility] Do you belong to any clubs or organizations such as samaritan groups, unions, fraternal or athletic groups, or [...] Alcohol intake Current non-drinker of alcohol (finding) [facility] Procedure Code Equipment Code Equipment Origin al Text Equipment Identifier Dates Lens Iol Ultrase rt 11.5d - [id number] - [id number] Start: 04-03-2018 Lens Iol Ultrase rt 13.0d - [id number] - [id number] Start: 08-28-2018 Head Fem 32mm 0m m Vrsy Cocr Hip Rpl [id number] - [id number] - [id number] +[id number], [id number] FDA Start: 12-26-2022 Screw Bn 15mm 6. 5mm [address] Hip Actb Trlg Strl Rpl [id number] - Sna - [id number] Start: 12-26-2022 Goals Date Patient Goal [...] physical therapy. She used to participate in [employer] classes, which included weightlifting, but discontinued this [...] in weight-bearing exercises, such as resuming her Re-[employer] classes, to stimulate bone health. A bone density test will be scheduled to monitor her condition. PROCEDURE The patient underwent hip replacement surgery approximately 2 years ago. documented in this encounter [facility] 05-05-2024 Telephone encounter Note Voicemail left at 3:55 pm. I left her a vm to schedule an appt. Nj, this is Marck Maria for 45. I am calling to [...] why that is happening. So it is [phone] Neri Maria [id number]. Thank you very much. Peter lemus. [facility] 05-05-2024 Miscellaneous Notes Voicemail left at 3:55 pm. I left her a vm to schedule an appt. Nj, this is Marck Maria for 45. I am calling to [...] why that is happening. So it is [phone] Kasson Maria [id number]. Thank you very much. Peter lemus. documented in this encounter [facility] 03-03-2024 Telephone encounter Note Approvals with refills [facility] 03-03-2024 Miscellaneous Notes Approvals with refills documented in this encounter [facility] 02-03-2024 History of Present illness Narrative Images [...] challenging. She also consumes iced coffee from [employer]. SUBJECTIVE: MEDICATIONS: Current Outpatient Medications Medication Instructions [...] good preventative measure. documented in this encounter [facility] 01-10-2024 History of Present illness Narrative Images [...] go to hospital. Report called to Dr [place]us. No follow-ups on file. documented in this encounter [facility] 01-07-2024 History of Present illness Narrative Marck Maria is a 78 y.o. female [...] Orders Flu vaccine, high dose seasonal, PF ([id number]) (Fluzone High Dose) Urinary incontinence, unspecified type Relevant Orders POCT Urinalysis dipstick D.c sugary ice coffees documented in this encounter [facility] 08-02-2023 Miscellaneous Notes Received a phone call from [facility] for patient records to be transferred. documented in this encounter [facility] 08-02-2023 Telephone encounter Note Received a phone call from [facility] for patient records to be transferred. [facility] 06-11-2023 Telephone encounter Note PT Calling to check status of this request, unsure as how to explain the denial of the refill. [facility] 06-11-2023 Miscellaneous Notes PT Calling to check status of this request, unsure as how to explain the denial of the refill. Medication refused due to failing protocol. Requested Prescriptions Pending Prescriptions Disp Refills methylPREDNISolone (Medrol Dospak) 4 MG tablets 21 tablet Sig: Follow schedule on package instructions There is no refill protocol information for this order documented in this encounter [facility] 06-11-2023 Telephone encounter Note Medication refused due to failing protocol. Requested Prescriptions Pending Prescriptions Disp Refills methylPREDNISolone (Medrol Dospak) 4 MG tablets 21 tablet Sig: Follow schedule on package instructions There is no refill protocol information for this order [facility] 06-10-2023 History of Present illness Narrative Marck [...] Recheck in 6months documented in this encounter [facility] 06-05-2023 History of Present illness Narrative Subjective Patient ID: Marck Marai is a 77 y.o. female. LT Hip [...] in 2-3 weeks documented in this encounter [facility] Healthcare Evaluation note Diagnosis Postnasal discharge [...] anemia Age-related osteoporosis without current pathological fracture (CMS/[facility]) documented in this encounter [facility]* [...] encounter [facility] HealthcareInstructionsNot on filedocumented in this [facility] Summary Purpose Family History No Family History Records FoundNo Family History Records FoundNo Family History Records FoundNo Family History Records Found Advance Directives No Advanced Directives Records FoundDocuments on File Type Date Recorded Patient Critical Power Technician Expl anation Living Will 01/17/2023 11:55 AM Durable Power of Hospice Art Therapist 01/17/2023 11:54 AM Latest Code Status on File Code Status Date Activated Date Inactivated Comments Full Code 12/28/2022 6:14 PM 01/01/2023 3:49 PM Code Status History Code Status Date Activated Date Inactivated Comments Full Code 12/26/2022 10:18 AM 12/27/2022 7:36 PM Additional Source Comments INFORMATION SOURCE (unrecogn ized section and content) DATE CREATED AUTHOR 04/10/2021 [facility] dical Specialist DATE CREATED AUTHOR AUTHOR'S ORGANIZ ATION 01/13/2024 [facility] DATE CREATED AUTHOR AUTHOR'S ORGANIZ ATION 05/19/2024 [facility] dical Specialists EPIC DATE CREATED AUTHOR AUTHOR'S ORGANIZ ATION 08/20/2024 [facility] Reason for Visit (unrecogniz ed section and content) Reason Comments Med Refill Reason Comments Medicare Annual Wellness Visit [facility] Reason Comments Follow-up Patient here for [address] [facility] follow up. She was in the ER [...] Reason Onset Date Comments Records, transfer to [facility] 08/02/2023 Care Teams (unrecognized sec tion and content) Station Mechanic Apprentice Relationship Specialty Start Date End Date Benji Cantrell MD [address] [place] [address] PCP - [employer] 04/29/22 Lisandra Jimenez MD [address] [place] [address] PCP - General Family Medicine 09/10/22 Station Mechanic Apprentice Relationship Specialty Start Date End Date Benji Cantrell MD [address] [place] [address] PCP - [employer] 04/29/22 Lisandra Jimenez MD [address] [place] [address] PCP - General Family Medicine 09/10/22 Station Mechanic Apprentice Relationship Specialty Start Date End Date Benji Cantrell MD [address] [place] [address] PCP - [employer] 04/29/22 Lisandra Jimenez MD [address] [place] [address] PCP - General Family Medicine 09/10/22 Station Mechanic Apprentice Relationship Specialty Start Date End Date Benji Cantrell MD [address] [place] [address] PCP - [employer] 04/29/22 Lisandra Jimenez MD [address] [place] [address] PCP - General Family Medicine 09/10/22 Station Mechanic Apprentice Relationship Specialty Start Date End Date Benji Cantrell MD [address] [place] [address] PCP - [employer] 04/29/22 Lisandra Jimenez MD [address] [place] [facility] [address] PCP - General Family Medicine 09/10/22 Station Mechanic Apprentice Relationship Specialty Start Date End Date Benji Cantrell MD [address] [place] [address] PCP - [employer] 04/29/21 Lisandra Jimenez MD [address] [facility] [address] PCP - General Family Medicine 09/10/22 Station Mechanic Apprentice Relationship Specialty Start Date End Date Benji Cantrell MD [address] [facility] [address] [place] [address] PCP - [employer] 04/29/21 Lisandra Jimenez MD [address] [place] [facility] [place] [address] PCP - General Family Medicine 09/10/22 Station Mechanic Apprentice Relationship Specialty Start Date End Date Benji Cantrell MD [address] [facility] [address] [place] [address] PCP - [employer] 04/29/21 Lisandra Jimenez MD [address] [place] [facility] [place] [address] PCP - General Family Medicine 09/10/22 Station Mechanic Apprentice Relationship Specialty Start Date End Date Benji Cantrell MD [address] [facility] [address] [place] [address] PCP - [employer] 04/29/21 Lisandra Jimenez MD [address] [place] [address] PCP - General Family Medicine 09/10/22 Station Mechanic Apprentice Relationship Specialty Start Date End Date Benji Cantrell MD [address] [facility] [address] [place] [address] PCP - [employer] 04/29/21 Lisandra Jimenez MD [address] [place] [address] PCP - General Family Medicine 09/10/22 Station Mechanic Apprentice Relationship Specialty Start Date End Date Benji Cantrell MD [address] [place] [address] PCP - [employer] 04/29/21 Lisandra Jimenez MD [address] [place] [facility] [place] [address] PCP - General Family Medicine 09/10/22 Station Mechanic Apprentice Relationship Specialty Start Date End Date Benji Cantrell MD [address] [facility] [address] [place] [address] PCP - [employer] 04/29/21 Lisandra Jimenez MD [address] [place] [facility] [address] PCP - General Family Medicine 09/10/22 Station Mechanic Apprentice Relationship Specialty Start Date End Date Benji Cantrell MD [address] [place] [address] PCP - [employer] 04/29/21 Lisandra Jimenez MD [address] [place] [facility] [address] PCP - General Family Medicine 09/10/22 Station Mechanic Apprentice Relationship Specialty Start Date End Date Benji Cantrell MD [address] [facility] [address] [place] [address] PCP - [employer] 04/29/21 Lisandra Jimenez MD [address] [place] [address] PCP - General Family Medicine 09/10/22 Station Mechanic Apprentice Relationship Specialty Start Date End Date Benji Cantrell MD [address] [place] [address] PCP - Aet 04/29/21 Lisandra Jimenez MD [address] [facility] [place], [place] [address] PCP - General Family Medicine 09/10/22 Station 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 [employer] provides no warranty or guarantee of the accuracy or completeness of information in this document.
--- NOTE | 2024-09-10 09:51 | PM.CN ---
Consult Note: HPI Data of Consult Patient: known to practice within the last 3 years Requesting Physician: Teresa Lynn NP Primary Care Provider: YOLA AMES Consult Narrative Reason for consult: left low back, hip pain Narrative: 79yof who presents for assessment. Worsening left low back and hip pain. Continues in a provider directed home exercise program >6 weeks, without benefit. Pt noticing moderate relief after left L2,3,4 TFESI and left SIJ injection. Pain today 1-2/10 increasing to moderate pain at times withs tanding, walking, sitting. utilizing tylenol and tramadol PRN with moderate relief of symptoms without side effects. cc:: CC: Teresa Lynn NP Review of Systems ROS Status of ROS 10 or more systems reviewed and unremarkable except as noted in history and below Musculoskeletal Reports: back pain; Denies: extremity pain or joint pain [facility]SH [facility] Medical History (Updated 09/10/24 @ 09:54 by Teresa Lynn NP) Low back pain ?M54.50 - Low back pain, unspecified (ICD-10) Surgical History History of hip replacement ?Z96.649 - Presence of unspecified artificial hip joint (ICD-10) Meds Home Medications and Allergies Home Medications ?Medication ?Instructions ?Recorded ?Confirmed ?Type acetaminophen 650 mg 650 mg PO Q12H PRN pain 08/19/23 08/31/24 History tablet,extended release (Tylenol Arthritis Pain) alendronate 70 mg tablet 70 mg PO QWEEK 08/19/23 08/31/24 History famotidine 20 mg tablet 20 mg PO DAILY 08/19/23 08/31/24 History ferrous sulfate 325 mg (65 mg 325 mg PO DAILY 08/19/23 08/31/24 History iron) tablet (Feosol) metoprolol succinate 25 mg 25 mg PO BID 08/19/23 08/31/24 History tablet,extended release 24 hr tolterodine 2 mg tablet 2 mg PO DAILY 08/19/23 08/31/24 History lidocaine 5 % topical patch 1 patch topical DAILY #30 ea 10/10/23 08/31/24 Rx tramadol 50 mg tablet 50 mg PO BID PRN pain, severe #14 07/27/24 08/31/24 Rx tabs tramadol 50 mg tablet 50 mg PO DAILY PRN pain #7 tabs 08/19/24 08/31/24 Rx Allergies Allergy/AdvReac Type Severity Reaction Status Date / Time No Known Drug Allergies Allergy Verified 08/31/24 11:04 Exam Constitutional Documenting provider has reviewed patient's vital signs: yes Common normals: no apparent distress, oriented x3, healthy appearing, alert and well nourished General appearance: cooperative HENMT Common normals: normocephalic, hearing grossly normal bilaterally and moist oral mucous membranes Head and scalp: normocephalic Eye Common normals: PERRL Pupil: PERRL Neck & C-Spine Common normals: full ROM General: normal visual inspection Chest Common normals: inspection of chest normal Respiratory Common normals: normal respiratory effort, no retractions and no use of accessory muscles Back & Pelvis Lumbar spine/lower back: straight leg raise negative bilaterally; ROM not limited, no pain with ROM and no lumbar spinal tenderness Sacroiliac joints: SI joints normal Other: strength 5/5 in BLE sensation intact BLE Neuro Common normals: oriented x3 and CN's II-XII intact bilaterally Sensorium/orientation: alert Motor exam: no movement abnormalities noted Psych Common normals: mental status grossly normal, thought process normal, cooperative, affect normal, speech normal and activity/motor behavior normal Speech: normal speech Thought process: normal thought process Results Additional Findings Additional findings: If on a controlled substance or opioids, I have checked an OARRS report on this patient and there are no aberrancies noted in the prescribing history.??If on a controlled substance or opioid a drug screen was completed and reviewed within the last year, and if there has not been a drug screen completed we ordered one today to monitor higher risk, state monitored pain medication use. As part of providing excellent, safe, comprehensive care, the following was completed at our patient's visit: 1. A medication reconciliation and review to ensure accurate knowledge of current/active medications, including asking our patients to inform us about any [id number] medications or herbal remedies/nutritional supplements/alternative remedies. 2. A review to specifically ensure our patients have had annual screening for screening for depression, screening for tobacco use, and screening for unhealthy alcohol use. For concerning screenings had a discussion with the patient, provided patient education, and recommended follow-up with primary care provider when appropriate. If patient noted with a risk of falling, they received education on strength, gait, and balance training to prevent future risk of falling. Portions of this note may have been carried over from the previous visit and updated as appropriate. Please note this office utilizes paper charting in addition to the electronic medical record. A list of current medications, vitals, and PMH is available there as the clinical staff outside of myself do not have access to [employer] charting during the clinic day operations. As part of providing quality comprehensive care the current medications, vitals, and PMH were reviewed in the paper chart. Assessment and Plan Assessment and Plan (1) Sacroiliitis: Assessment and Plan: 03/30/24 left SIJ >50% improvement for 3 months 08/10/24 left SIJ injection >50% improvement ongoing (2) Lumbar stenosis with neurogenic claudication: Assessment and Plan: 09/01/23 left L2-3 L3-4 TFESI >50% improvement ongoing (3) Lumbar spondylosis: (4) Chronic use of opiate drug for therapeutic purpose: Assessment and Plan: I feel these medications are improving the patient's quality of life and allow them to tolerate activities of daily living as well as participate in recreational activity.? The patient does not report intolerable side effects. The patient is NOT opioid naive and non-pharmacologic and non-opioid treatment has failed to significantly relieve the patient's pain and improve functionality. The patient has a diagnosis that is related to a somatic or visceral pain etiology. ? ?? I reviewed with the patient the potential risks and side effects with the use of? opioid medications including but not limited to respiratory depression,? sedation, and even . Within the last 12 months I have verified the patient has access to naloxone should? these effects occur. The patient was advised to let? their family know they had Naloxone in case they would need to administer? the medication. I advised the patient to avoid the use of any other? sedation substances including alcohol, THC, and benzodiazepines while? taking opioid medications due to the risk of compounding side effects and? detrimental outcomes. within the last 12 months I have reviewed the POUNCER, pain treatment agreement and urine drug screen.? ?? A drug screen was completed within the last year, and no aberrancies were noted regarding their use of controlled substances. The patient understands they are subject to the terms and conditions of the pain contract that they have signed. ? ?? I have checked an OARRS report on this patient today and there are no aberrancies noted in the prescribing history.? Plan continue tramadol 50mg once daily as needed for moderate to severe pain, pt advised not to drive within 8 hours of taking this medication narcan discussed and prescribed, pt given educational handout continue HEP as tolerated f/u 3 months, sooner if needed
== END 2024-09-10 09:03 | disposition home or self-care (01) ==
PROVIDERS: PCP Family Medicine; Visit Provider Nurse Practitioner
DX: M46.1 Sacroiliitis, not elsewhere classified (principal); M48.062 Spinal stenosis, lumbar region with neurogenic claudication; M47.816 Spondylosis without myelopathy or radiculopathy, lumbar region; Z79.891 Long term (current) use of opiate analgesic
CPT/HCPCS: G0463

== ENCOUNTER 2024-12-10 10:53 | Outpatient (OUT) | payer MEDICARE, SELFPAY ==
--- OUTSIDE RECORDS SUMMARY | 2024-12-10 10:55 | XMS_ITS | Clinical Summary ---
Author Organization [facility] Address [address] [place] [address], [address] [place] [address] Care Team Providers Care Crown Ceramist Name Role Phone Lisandra Jimenez MD Primary Care Provider [phone] Social History Tobacco Use Types Packs/Day Years Used Date Smoking Tobacco: Never Assessed Comments Unknown Sex and Gender Information Value Date Recorded Sex Assigned at Not on file Legal Sex Female 1:55 PM EST Gender Identity Not on file Sexual Orientation Not on file Plan of Treatment Not on file Insurance [employer] MEDICARE Care Teams Crown Ceramist Relationship Specialty Start Date End Date Lisandra Jimenez MD [address] [place] [address] PCP - General 10/15/22
--- OUTSIDE RECORDS SUMMARY | 2024-12-10 10:56 | XMS_ITS | Clinical Summary ---
Author Organization Eventiozs tem Address [id number] [address] [place] [address] Care Team Providers Care Copy Lathe Operator Name Role Phone Lisandra Jimenez MD Primary Care Provider [phone] Allergies Active Allergy Reactions Criticality Noted Date Comments Diphenhydramine Hcl Low 03/25/2018 MADE HER VERY SLEEPY Sulfa (Sulfonamide Antibiotics) Other (See Comments) 09/01/2021 Medications FAMOTIDINE (PEPCID ORAL) Take 20 mg by mouth in the morning. Active fluticasone propionate (FLONASE) 50 mcg/actuation nasal spray Administer 1 spray into each nostril in the morning. Active azelastine (OPTIVAR) 0.05 % ophthalmic solution Administer 1 drop to both eyes in the morning and 1 drop before bedtime. Active acetaminophen (TYLENOL EXTRA STRENGTH) 500 mg tablet Take 1 tablet (500 mg total) by mouth every 6 (six) hours as needed for pain. Active alendronate (FOSAMAX) 70 mg tablet Take 1 tablet (70 mg total) by mouth every 7 days. Takes it every Saturday 2 Active metoprolol tartrate (LOPRESSOR) 25 mg tablet Take 1 tablet (25 mg total) by mouth in the morning and 1 tablet (25 mg total) before bedtime. 60 tablet 2 3 Active benzonatate (TESSALON PERLES) 100 mg capsule Take 1 capsule (100 mg total) by mouth 3 (three) times a day as needed for cough. 20 capsule Active Active Problems Problem Noted Date Diagnosed Date COVID-19 01/10/2024 Low back pain without sciatica 08/23/2023 Postoperative anemia due to acute blood loss 06/2022 Tachycardia 12/28/2022 Primary localized osteoarthritis of left hip Porokeratosis 11/29/2022 Acquired hallux valgus 10/10/2022 Arthritis, lumbar spine 10/10/2022 Disorder of sacrum 04/05/2022 Overview (04/05/2022): Added automatically from request for surgery [id number] Acquired hammer toe of right foot 02/22/2022 Age related osteoporosis 02/22/2022 Degeneration of lumbar intervertebral disc 02/22 Degenerative scoliosis in adult patient 02/23/20 22 Gastroesophageal reflux disease 02/22/2022 Lumbosacral spondylosis without myelopathy 02/22 Other idiopathic scoliosis, thoracolumbar region 02/22/2022 Thoracic spondylosis without myelopathy 02/23/20 22 Resolved Problems Problem Noted Date Diagnosed Date Resolved Date S/P hip replacement, left 12/29/2022 Arthritis 02/22/2022 12/30/2022 Arthritis of left hip 02/22/20222022 Social History Tobacco Use Types Packs/Day Years Used Date Smoking Tobacco: Never Smokeless Tobacco: Never Tobacco Cessation:Counseling Given: Not Answered Alcohol Use Standard Drinks/Week Comments No 0 (1 standard drink = 0.6 oz pur e alcohol) [facility] Utilities Answer Date Recorded In the past 12 months has e [employer], gas, oil, or water [employer] threatened to shut off services in your home? No 01/11/2024 AUDIT-C Answer Date Recorded Frequency of Alcohol Consumption Never 04/03/2018 Average Number of Drinks Not on file 018 Frequency of Binge Drinking Not on file 09/2017 PRAPARE - Transportation Answer Date Re corded In the past 12 months, has l ack of transportation kept you from medical appointments or from getting medications? No 12/28 In the past 12 months, has l ack of transportation kept you from meetings, work, or from getting things needed for daily living? No 01/11/2024 Housing Instability Answer Date Recorde d Are you worried or concerned that in the next two months you may not have stable housing that you own, rent or stay in as a part of a household? No 01/11/2024 Childcare Answer Date Recorded Childcare Unknown 10/08/2018 Employment Answer Date Recorded Employment Unknown 10/08/2018 Hunger Screening Answer Date Recorded Within the past 12 months we worried whether our food would run out before we got money to buy more. Never True 01/11/2024 Within the past 12 months th e food we bought just didn't last and we didn't have money to get more. Never True 01/11/2024 Purpose - Life Answer Date Recorded Purpose and direction in life Unknown Comments No Sex and Gender Information Value Date Recorded Sex Assigned at Not on file Legal Sex Female 11:41 AM EDT Gender Identity Not on file Sexual Orientation Not on file Last Filed Vital Signs Vital Sign Reading Time Taken Comments Blood Pressure 123/69 01/12/2024 8:14 AM EDT Pulse 85 01/12/2024 8:14 AM EDT Temperature 37.1 C (98.7 F) 01/12/2024 8:14 AM EDT Respiratory Rate 20 01/12/2024 8:14 AM EDT Oxygen Saturation 90% 01/12/2024 8:14 AM EDT Inhaled Oxygen Concentration - - Weight 51.6 kg (113 lb 12.1 oz) 01/11/2024 5:00 AM EDT Height 154.9 cm (5' 0.98 ) 01/11/2024 1 2:48 AM EDT Body Mass Index 21.51 01/11/2024 12:48 AM EDT Plan of Treatment Health Maintenance Due Date Last Done Comments Depression Screening 1957 Fall Risk Screening 2010 DTaP,Tdap and Td Vaccines (3 - Td or Tdap) 02/10/2023 02/10/2013, 02/10/2013 COVID-19 Vaccine (2023-05 5 season) 2023 04/07/2023, 02/06/2022, 07/28/2021, Additional history exists Influenza Vaccine 12/28/2024 01/28/2023, , 01/26/2021, Additional history exists Tobacco Screening 01/10/2025 01/11/2024 Zoster (Shingles) Vaccine Completed 2018, 01/26/2019, 01/22/2019, Additional history exists Goals Goal Patient Goal Type Associated Problems Recent Progress Patient-Stated? Author Home General Yes Yadira Rubio LSW Note: Evaluation of progress towards goal: Home with support from friend (staying with pt) and [facility] [employer] Devices Implanted Type Area Payloader Machine Operator Device Identifier Shelf Expiration Date Model / Serial / Lot Lens Iol Ultrasert 11.5d - [id number] - [id number] Implanted:Qt y: 1 on 04/03/2018 by Marcia Rodriguez MD at [facility] Lens Left: Eye [employer] 02/27/2020 AU00T0 11.5 / [id number] / NA Lens Iol Ultrasert 13.0d - [id number] - [id number] Implanted:Qt y: 1 on 08/28/2018 by Marcia Rodriguez MD at [facility] Lens Right: Eye [employer] 09/26/2020 AU00T0 13.0 / [id number] / NA Shell Actb 48mm Hip 3 Hl Clr Cd Osseoti G7 C Hmsphr - Sna - [id number] Implanted:Qt y: 1 on 12/26/2022 by Andrea Lui DO at [facility] Orthopedic Implant Left: Hip [employer] 12/21/2031 [id number] / NA / [id number] Liner Actb 32mm C Vivacit-E Lum G7 Hip Strl Lf - Sna - [id number] Implanted:Qt y: 1 on 12/26/2022 by Andrea Lui DO at [facility] Orthopedic Implant Left: Hip [employer] 03/11/2027 [id number] / NA / [id number] Stem Fem 137d 1 04/11 37mm Fitmore Protasul-64 Hip Rgh Blast - Sna - [id number] Implanted:Qt y: 1 on 12/26/2022 by Andrea Lui DO at [facility] Orthopedic Implant Left: Hip [employer] 05/29/2030 [id number] / NA / [id number] Head Fem 32mm 0mm Vrsy Cocr Hip Rpl [id number] 5 - [id number] - [id number] Implanted:Qt y: 1 on 12/26/2022 by Andrea Lui DO at [facility] Orthopedic Implant Left: Hip [employer] [id number] 03/28/2026 [id number] / [id number] / [id number] Screw Bn 30mm 6.5mm St Actb Grady Trlg Strl Rpl [id number] 165+[id number] - Sna - [id number] Implanted:Qt y: 1 on 12/26/2022 by Andrea Lui DO at [facility] Screw Left: Hip [employer] 07/23/2032 [id number] / NA / [id number] Screw Bn 25mm 6.5mm St Hip Trlg Strl Rpl [id number] 28+[id number] - Sna - [id number] Implanted:Qt y: 1 on 12/26/2022 by Andrea Lui DO at [facility] Screw Left: Hip [employer] 08/21/2032 [id number] / NA / [id number] Screw Bn 15mm 6.5mm St Hip Actb Trlg Strl Rpl [id number] 2 - Sna - [id number] Implanted:Qt y: 1 on 12/26/2022 by Andrea Lui DO at [facility] Screw Left: Hip [employer] 05/23/2032 [id number] / NA / [id number] Insurance [employer] MEDICARE Advance Directives Documents on File Type Date Recorded Patient Flamer Sealer Expl anation Living Will 01/17/2023 11:55 AM Durable Power of Chemical Engineering Technician 01/17/2023 11:54 AM * Full Code (Latest Code Status on File) Date Activated Date Inactivated Comments 01/10/2024 10:46 PM 01/12/2024 2:32 PM * Full Code Date Activated Date Inactivated Comments 12/28/2022 6:14 PM 01/01/2023 3:49 PM * Full Code Date Activated Date Inactivated Comments 12/26/2022 10:18 AM 12/27/2022 7:36 PM Care Teams Copy Lathe Operator Relationship Specialty Start Date End Date Lisandra Jimenez MD [address] [place] [address] PCP - General Family Medicine 01/10/24
--- OUTSIDE RECORDS SUMMARY | 2024-12-10 10:56 | XMS_ITS | Encounter Summary ---
Author Organization [facility] Address [address] [place] [address] Care Team Providers Care Lamp Wirer Name Role Phone Benji Cantrell MD Unavailable [phone] Lisandra Ames MD Primary Care Provider [phone] Encounter Details Date Type Department Care Team (Late st Contact Info) Description 08/26/2023 Clinisync Result Encounter [facility] External Department Unsolicited Provider, Generic External Data Social History Tobacco Use Types Packs/Day Years Used Date Smoking Tobacco: Never Smokeless Tobacco: Never Alcohol Use Standard Drinks/Week Comments Never 0 (1 standard drink = 0.6 oz pur e alcohol) Humiliation, Afraid, Rape, and Kick questionnair e Answer Date Recorded Within the last year, have y ou been afraid of your partner or ex-partner? No 12/10/2022 Within the last year, have y ou been humiliated or emotionally abused in other ways by your partner or ex-partner? No Within the last year, have y ou been kicked, hit, slapped, or otherwise physically hurt by your partner or ex-partner? No 12/10/2022 Within the last year, have y ou been raped or forced to have any kind of sexual activity by your partner or ex-partner? No 12/10/2022 Social Connection and Isolat ion Panel [NHANES] Answer Date Recorded In a typical week, how many times do you talk on the phone with family, friends, or neighbors? Three times a week 12/10/2022 How often do you get togethe r with friends or relatives? More than three times a week 12/10/2022 Attends Judaism Services Not on file 12/10 Do you belong to any clubs o r organizations such as orthodox groups, unions, fraternal or athletic groups, or school groups? Yes 12/10/2022 How often do you attend meet ings of the clubs or organizations you belong to? 1 to 4 times per year 12/10/2022 Are you , , di vorced, , never , or living with a partner? Never 12/10/2022 AUDIT-C Answer Date Recorded Q1: How often do you have a drink containing alcohol? Never 12/10/2022 Q2: How many drinks containi ng alcohol do you have on a typical day when you are drinking? Patient does not drink Q3: How often do you have si x or more drinks on one occasion? Never 12/10/2022 Overall Financial Resource Strain (CARDIA) Answe r Date Recorded How hard is it for you to pa y for the very basics like food, housing, medical care, and heating? Not hard at all 12/10/2022 Hunger Vital Sign Answer Date Recorded Within the past 12 months, y ou worried that your food would run out before you got the money to buy more. Never true 12/11/19 23 Within the past 12 months, t he food you bought just didn't last and you didn't have money to get more. Never true 12/10/2022 PRAPARE - Transportation Answer Date Re corded In the past 12 months, has l ack of transportation kept you from medical appointments or from getting medications? No 11/27 In the past 12 months, has l ack of transportation kept you from meetings, work, or from getting things needed for daily living? No 12/10/2022 Housing Stability Vital Sign Answer Christ e Recorded In the last 12 months, was t here a time when you were not able to pay the mortgage or rent on time? No 12/10/2022 Number of Places Lived in the Last Year Not on f ile 12/10/2022 In the last 12 months, was t here a time when you did not have a steady place to sleep or slept in a correction (including now)? No 12/10/2022 Comments Unknown Sex and Gender Information Value Date Recorded Sex Assigned at Not on file Legal Sex Female 7:21 PM EDT Gender Identity Female 07/11/2022 7:21 PM EDT Sexual Orientation Not on file documented as of this encounter Plan of Treatment Upcoming Encounters Date Type Department Care Team (Late st Contact Info) Description 02/17/2025 9:40 AM EDT Office Visit [facility] Medicine [address] [place] [address] Lisandra Ames MD [address] [place], [place] [id number] documented as of this encounter Procedures Procedure Name Priority Date/Time Associated Diagnosis Comments MR LUMBAR SPINE WO CON 08/26/2023 3:58 PM EDT documented in this encounter Results * MR LUMBAR SPINE WO CON (08/26/2023 3:58 PM EDT) Anatomical Region Laterality Modality Other 08/26/2023 3:58 PM EDT Narrative 08/26/2023 4:00 PM EDT [address] [address] Magnetic Resonance Report Signed Patient: NIKKY GUTIERREZ MR#: [id number] : 1945 Acct:[id number] Age/Sex: 78 / F ADM Date: 08/26/23 Loc: MRI Attending Dr: Mere Woodard M.D. Ordering Physician: Mere Woodard M.D. Date of Service: 08/26/23 Procedure(s): MR lumbar spine wo con Accession Number(s): [id number] cc: LISANDRA AMES Andrius M.D. [address] [address] Patient Name: NIKKY GUTIERREZ MRN: [id number] date: 1945 Sex: F Assigned Patient Location: MRI Current Patient Location: MRI Accession/Order Number: [id number] Exam Date: 08/26/2023 14:42 Report Date: 08/26/2023 15:58 At the request of: BILLY HAILEY Procedure: MR lumbar spine wo con MR lumbar spine wo con, 08/26/2023 2:42 PM EDT INDICATION: lumbar Stenosis COMPARISON: There is no appropriate prior study for comparison. TECHNIQUE: Multiplanar, multisequential MRI images of lumbar spine were obtained without contrast. FINDINGS: For dictation purposes, the lowest complete disc space in the lumbar spine considered as L5-S1. There is significant dextroscoliosis centered on L3-L4. The vertebral height is relatively preserved. Bilateral renal lesions with T2 prolongation not fully characterized by this study and statistically may suggest simple renal cysts. The conus medullaris is at the level of L1. No signal abnormality within the visualized spinal cord is noted. At the level of T12-L1 and L1-L2, there are disc bulge with moderate bilateral neuroforaminal narrowing and no canal stenosis. At the level of L2-L3, there are disc bulge with mild right and severe left neuroforaminal narrowing and no canal stenosis. At the level of L3-4, there are disc bulge with mild bilateral neuroforaminal narrowing and no canal stenosis. At the level of L4-5, there are disc bulge with mild left and moderate right neuroforaminal narrowing and mild canal stenosis. At the level of L5-S1, there are disc bulge with superimposed central annular fissure mild left and moderate right neuroforaminal narrowing and no canal stenosis. The paraspinal muscles are unremarkable. MR/MR lumbar spine wo con IMPRESSION: Severe dextroscoliosis with moderate degenerative changes of lumbar spine in particular at L2-L3 and L4-5. Electronically authenticated by: HOMAR MALDONADO Date: 08/26/2023 15:58 Dictated By: Homar Maldonado M.D. Signed By: 08/26/23 1600 DD/ 1558 TD/TT: Senior Qc Technician: Procedure Note Radiology, Radiologist, - 08/26/2023 [facility] [place] [id number] Magnetic Resonance Report Signed Patient: MYRIAM GUTIERREZ#: [id number] : 6Acct:[id number] Age/Sex: 78 / FADM Date: 08/26/23 Loc: MRI Attending Dr: Mere Woodard M.D. Ordering Physician: Mere Woodard M.D. Date of Service: 08/26/23 Procedure(s): MR lumbar spine wo con Accession Number(s): [id number] cc: LISANDRA AMES ; Mere Woodard M.D. [place] [address] Patient Name: NIKKY GUTIERREZ MRN: [facility]:[id number] date: 1945 Sex: F Assigned Patient Location: MRI Current Patient Location: MRI Accession/Order Number: [id number] Exam Date: 08/26/2023 14:42 Report Date: 08/26/2023 15:58 At the request of: MERE WOODARD Procedure: MR lumbar spine wo con MR lumbar spine wo con, 08/26/2023 2:42 PM EDT INDICATION: lumbar Stenosis COMPARISON: There is no appropriate prior study for comparison. TECHNIQUE: Multiplanar, multisequential MRI images of lumbar spine were obtained without contrast. FINDINGS: For dictation purposes, the lowest complete disc space in the lumbar spine considered as L5-S1. There is significant dextroscoliosis centered on L3-L4. The vertebralheight is relatively preserved. Bilateral renal lesions with T2 prolongation not fully characterized bythis study and statistically may suggest simple renal cysts. The conus medullaris is at the level of L1. No signal abnormality withinthe visualized spinal cord is noted. At the level of T12-L1 and L1-L2, there are disc bulge with moderatebilateral neuroforaminal narrowing and no canal stenosis. At the level of L2-L3, there are disc bulge with mild right and severeleft neuroforaminal narrowing and no canal stenosis. At the level of L3-4, there are disc bulge with mild bilateralneuroforaminal narrowing and no canal stenosis. At the level of L4-5, there are disc bulge with mild left and moderateright neuroforaminal narrowing and mild canal stenosis. At the level of L5-S1, there are disc bulge with superimposed centralannular fissure mild left and moderate right neuroforaminal narrowing and no canal stenosis. The paraspinal muscles are unremarkable. MR/MR lumbar spine wo con IMPRESSION: Severe dextroscoliosis with moderate degenerative changes of lumbar spinein particular at L2-L3 and L4-5. Electronically authenticated by: HOMAR MALDONADO Date: 08/26/2023 15:58 Dictated By: Homar Maldonado M.D. Signed By:08/26/23 1600 DD/ 1558 TD/TT: Senior Qc Technician: us Generic External Data Provider [facility] Final Result documented in this encounter Visit Diagnoses Not on filedocumented in this encounter Additional Health Concerns Assessment Noted Time PHQ-9 Depression Total Score: 0 06/10/19 24 10:00 AM EST documented as of this encounter Care Teams Lamp Wirer Relationship Specialty Start Date End Date Benji Cantrell MD [address] [place] [address] PCP - [employer] 04/29/21 Lisandra Ames MD [address] [place] [address] PCP - General Family Medicine 09/10/22 documented as of this encounter
--- OUTSIDE RECORDS SUMMARY | 2024-12-10 10:56 | XMS_ITS | Encounter Summary ---
Author Organization [facility] Healthcare Address [address] [facility] [place] [address] Care Team Providers Care Pharmacy Service Associate Name Role Phone Benji Cantrell MD Unavailable [phone] Lisandra Jimenez MD Primary Care Provider [phone] Encounter Details Date Type Department Care Team (Late st Contact Info) Description 11/19/2024 Results Follow-Up [facility] Medicine [address] [place] [address] Lisandra Jimenez MD [address] [place] [address] POCT Urinalysis dipstick, Urine culture (clean catch), Urinalysis with reflex microscopic (clean catch), NOTE Social History Tobacco Use Types Packs/Day Years [...] than three times a week 12/10/2022 Attends Mormonism Services Not on file 12/10 Do you belong to any clubs o r organizations such as shinto groups, unions, fraSoysuper or athletic groups, or school groups? Yes [...] and heating? Not hard at all 12/10/2022 PHQ-2 Answer Date Recorded Patient Health Questionnaire-2 Score 0 10/16/2024 Hunger Vital Sign Answer Date Recorded Within [...] place to sleep or slept in a m[facility]p (including now)? No 12/10/2022 Comments Unknown Sex and Gender Information Value Date Recorded Sex Assigned at Not on file Legal Sex Female 7:21 PM EDT Gender Identity Female 07/11/2022 7:21 PM EDT Sexual Orientation Not on file documented as of this encounter Plan of Treatment Upcoming Encounters Date Type Department Care Team (Late st Contact Info) Description 02/17/2025 9:40 AM EDT [facility] [address] [place] [address] Lisandra Jimenez MD [address] [place], [place] [id number] documented as of this encounter Visit Diagnoses Not on filedocumented in this encounter Additional Health Concerns Assessment Noted Time PHQ-9 Depression Total Score: 0 10/17/19 25 2:00 PM EDT documented as of this encounter Care Teams Pharmacy Service Associate Relationship Specialty Start Date End Date Benji Cantrell MD [address] [facility] [address] [place] [address] PCP - [employer] 04/29/21 Lisandra Jimenez MD [address] [place], [place] [phone] PCP - General Family Medicine 09/10/22 documented as of this encounter
--- OUTSIDE RECORDS SUMMARY | 2024-12-10 10:56 | XMS_ITS | Clinical Summary ---
Author Organization [facility] Address [address] [facility] [place] [address] Care Team Providers Care Cafeteria Clerk Name Role Phone Benji Cantrell MD Unavailable [phone] Lisandra Jimenez MD Primary Care Provider [phone] Allergies Active Allergy Reactions Criticality Noted Date Comments Diphenhydramine Unknown 10/10/2022 Sulfa Antibiotics 10/10/2022 Other Reaction(s): Unknown Medications Acetaminophen (TYLENOL 8 HOUR ARTHRITIS PAIN PO) Tylenol Arthritis Pain Active azelastine (Optivar) 0.05 % ophthalmic solution INSTILL 1 DROP INTO BOTH EYES TWICE A DAY Ophthalmic for 90 Days Active ferrous sulfate 325 (65 Fe) MG EC tablet TAKE 1 TABLET (325 MG) BY MOUTH IN THE MORNING. TAKE WITH MEALS. DO NOT CRUSH, CHEW, OR SPLIT.. 3 Active fluticasone (Flonase) 50 MCG/ACT nasal sprayIndications :Postnasal discharge USE 2 SPRAYS IN EACH NOSTRIL ONCE A DAY 48 mL 3 4 Active docusate sodium (Colace) 100 MG capsule Take 100 mg by mouth in the morning and 100 mg before bedtime. Active benzonatate (Tessalon) 100 MG capsule Take 100 mg by mouth 3 (three) times a day as needed 4 Active famotidine (Pepcid) 20 MG tabletIndication s:Gastroesophage al reflux disease without esophagitis Take 1 tablet (20 mg) by mouth Daily 90 tablet 11 4 Active tolterodine LA (Detrol LA) 2 MG 24 hr capsuleIndicatio ns:Mixed stress and urge urinary incontinence Take 1 capsule (2 mg) by mouth Daily Do not crush, chew, or split. 90 capsule 3 4 025 Active metoprolol tartrate (Lopressor) 25 MG tabletIndication s:Tachycardia Take 1 tablet (25 mg) by mouth in the morning and 1 tablet (25 mg) before bedtime. 180 tablet 11 4 027 Active alendronate (Fosamax) 70 MG tabletIndication s:Age-related osteoporosis without current pathological fracture Take 1 tablet (70 mg) by mouth every 7 (seven) days Take in the morning with a full glass of water, on an empty stomach, and do not take anything else by mouth or lie down for the next 30 min. 12 tablet 11 4 Active celecoxib (CeleBREX) 200 MG capsule 4 Active estradiol (Estrace) 0.1 MG/GM vaginal creamIndications :Atrophic vaginitis Apply peasized amount to vagina nightly for 1 week then every Saturday/ y/Saturday. 42.5 g 5 5 026 Active nitrofurantoin, macrocrystal-mon ohydrate, (Macrobid) 100 MG capsuleIndicatio ns:Acute cystitis with hematuria Take 1 capsule (100 mg) by mouth in the morning and 1 capsule (100 mg) before bedtime. Do all this for 5 days. 10 capsule 5 025 Additional Information Patient not taking.Reported on 11/17/2024 Active Problems Problem Noted Date Diagnosed Date COVID-19 01/10/2024 Low back pain without sciatica 08/23/2023 Postoperative anemia due to acute blood loss 06/2022 Tachycardia 12/28/2022 Porokeratosis 11/29/2022 Acquired hallux valgus 10/10/2022 Acquired hammer toe of right foot 10/10/2022 Age-related osteoporosis wit hout current pathological fracture 10/10/2022 Osteoarthritis of left hip 10/10/2022 Arthritis, lumbar spine 10/10/2022 Degenerative scoliosis in adult patient 10/11/19 23 Degenerative disc disease, lumbar 10/10/2022 GERD (gastroesophageal reflux disease) Lumbosacral spondylosis without myelopathy 10/10 Disorder of sacrum 04/05/2022 Overview (11/29/2022): Added automatically from request for surgery [id number] Arthritis 02/22/2022 Other idiopathic scoliosis, thoracolumbar region 02/22/2022 Thoracic spondylosis without myelopathy 02/23/20 Age related osteoporosis 02/22/2022 Degeneration of lumbar intervertebral disc 02/22 Gastroesophageal reflux disease 02/22/2022 Arthritis of left hip 02/22/2022 Encounters Date Type Department Care Team Description 11/19/2024 Results Follow-Up [place] [address] [facility] [place] [address] Lisandra Jimenez MD POCT Urinalysis dipstick, Urine culture (clean catch), Urinalysis with reflex microscopic (clean catch), NOTE 11/17/2024 10:00 AM EDT Office Visit [place] [address] [facility] [place] [phone] Lisandra Jimenez MD Atrophic vaginitis (Primary Dx); Dysuria 11/17/2024 Bamboo flowsheet [address] [place] [address] Lisandra Jimenez MD 11/17/2024 Travel 11/16/[address] [place] [address] [facility] [place] [address] Lisandra Jimenez MD 11/09/2024 Results Follow-Up [place] [address] [facility] [place] [phone] Gisell Rodriguez NP POCT Urinalysis dipstick, Urine culture (clean catch) 11/06/2024 4:00 PM EDT Clinical Support [place] [address] [facility] [place] [phone] Dysuria (Primary Dx) 11/06/2024 Orders Only [facility] [address] [facility] [place] [address] Gisell Rodriguez NP Acute cystitis with hematuria (Primary Dx) 11/06/2024 Travel 11/06/2024 Telephone [place] [address] [facility] [place] [address] Lisandra Jimenez MD 10/19/2024 Results Follow-Up [place] [address] [facility] [place] [facility] [place] [address] Mena Purvis NP CBC and differential, Comprehensive metabolic panel, Vitamin D 25 hydroxy 10/16/2024 2:30 PM EDT Office Visit [place] [address] [facility] [place] [facility] [place] [address] Mena Purvis NP Medicare annual wellness visit, subsequent (Primary Dx); Routine general medical examination at a health care facility; Age-related osteoporosis without current pathological fracture ; Gastroesophageal reflux disease without esophagitis; Primary osteoarthritis of left hip; Iron deficiency anemia, unspecified iron deficiency anemia type; Neoplasm of unspecified behavior of bone, soft tissue, and skin 10/16/2024 Bamboo flowsheet [place] [address] [facility] [place] [facility] [place] [address] Mena Purvis NP 10/16/2024 Travel 10/08/2024 Results Follow-Up [place] [address] [facility] [place] [phone] Kinjal Urbano NP POCT urinalysis dipstick manually resulted, Urine culture 10/06/2024 4:00 PM EDT Office Visit [place] [address] [facility] [place] [phone] Kinjal Urbano NP Dysuria (Primary Dx); Acute cystitis with hematuria 10/06/2024 Travel 10/06/2024 Telephone [place] [address] [place] [phone] Lula Claudio MA 10/06/2024 Telephone [facility] [address] [place] [address] Lula Claudio MA from Last 3 Months Immunizations Immunization Administration Dates Next Due Influenza, High Dose Seasona l, Preservative Free 02/03/2024,01/22/2019,01/20/2018,01/18,01/17/2016,01/12/2015,01/11/2014 Influenza, High-dose Seasona l, Quadrivalent, Preservative Free 01/28/2023,02/06/2022,01/26/2021,01/26,01/22/2019,01/18/2017 Influenza, injectable, quadr ivalent, preservative free 01/20/2018 Influenza, seasonal, injectable 04/17/20 04,04/27/2003,04/27/2002,04/01 Influenza, seasonal, injecta ble, preservative free 02/06/2012 Influenza, seasonal, intrade rmal, preservative free 02/06/2013 Moderna Bivalent Booster Vaccination 02/06/2022 Moderna SARS-CoV-2 50mcg/0.5mL Booster Pneumococcal Conjugate PCV 13 01/17/2016 Pneumococcal Polysaccharide PPSV23 12/12/2012, RSV, recombinant, protein toussaint bunit RSVpreF, adjuvant reconstitu, 120mcg/0.5mL, PF (Arexvy) 04/08/2023 Td (adult), 5 Lf tetanus tox oid, preservative free, adsorbed 02/10/2013 Tdap 02/10/2013 Zoster, Recombinant 03/12/2019,01/22/2019 Zoster, live 01/26/2019,12/23/2012 Family History Medical History Relation Name Comments Lupus Father Stroke Father Schizophrenia Mother Relation Name Status Comments Father Mother Social History Tobacco Use Types Packs/Day Years [...] than three times a week 12/10/2022 Attends Pentecostalism Services Not on file 12/10 Do you belong to any clubs o r organizations such as hoahaoism groups, unions, fraternal or athletic groups, or [...] place to sleep or slept in a alf (including now)? No 12/10/2022 Comments Unknown Sex and Gender Information Value Date Recorded Sex Assigned at Not on file Legal Sex Female 7:21 PM EDT Gender Identity Female 07/11/2022 7:21 PM EDT Sexual Orientation Not on file Last Filed Vital Signs Vital Sign Reading Time Taken Comments Blood Pressure 122/68 11/17/2024 10:17 AM EDT Pulse 50 11/17/2024 10:17 AM EDT Temperature 37.3 C (99.2 F) 10/16/2024 2:10 PM EDT Respiratory Rate 18 11/17/2024 10:1 7 AM EDT Oxygen Saturation 97% 11/17/2024 10: 17 AM EDT Inhaled Oxygen Concentration - - Weight 48.9 kg (107 lb 12.8 oz) 025 10:17 AM EDT Height 153.7 cm (5' 0.5 ) 11/17/2024 10 :17 AM EDT Body Mass Index 20.71 11/17/2024 10:17 AM EDT Plan of Treatment Upcoming Encounters Date Type Department Care Team (Late st Contact Info) Description 02/17/2025 9:40 AM EDT Office Visit [facility] [address] [place] [phone] Lisandra Jimenez MD [address] [place], [place] [phone] Health Maintenance Due Date Last Done Comments Influenza Vaccine (#1) 2024 , 01/28/2023, 02/06/2022, Additional history exists Medicare Annual Wellness (AWV) 10/16/2025 0 10/16/2024, 06/10/2023, 06/10/2023, Additional history exists Pneumococcal Vaccine: 65+ Years Completed 01/17/2016, 12/12/2012, 03/08/1999 Procedures Procedure Name Priority Date/Time Associated Diagnosis Comments NOTE Routine 11/17/2024 10:34 AM EDT URINALYSIS REFLEX Routine 11/17/2024 10: 34 AM EDT Dysuria CULTURE, URINE, ROUTINE Routine 11/17/2024 10:34 AM EDT Dysuria POCT URINALYSIS DIPSTICK Routine 11/17/2024 10:25 AM EDT Dysuria CULTURE, URINE, ROUTINE Routine 11/06/2024 3:58 PM EDT Dysuria POCT URINALYSIS DIPSTICK Routine 11/06/2024 3:31 PM EDT Dysuria VITAMIN D 25 HYDROXY TOTAL Routine 10/16/2024 3:08 PM EDT Age-related osteoporosis without current pathological fracture COMPREHENSIVE METABOLIC PANEL Routine 10/16/2024 3:08 PM EDT Routine general medical examination at a health care facility Gastroesophageal reflux disease without esophagitis CBC (INCLUDES DIFF/PLT) Routine 10/16/2024 3:08 PM EDT Routine general medical examination at a health care facility Gastroesophageal reflux disease without esophagitis Iron deficiency anemia, unspecified iron deficiency anemia type CULTURE, URINE, ROUTINE Routine 10/06/2024 4:24 PM EDT Dysuria POCT URINALYSIS DIPSTICK Routine 10/06/2024 4:21 PM EDT Dysuria from Last 3 Months Results * NOTE (11/17/2024 10:34 AM EDT) NOTE [facility] Comment: This urine was analyzed for the presence of WBC, RBC, bacteria, casts, and other formed elements. Only those elements seen were reported. 11/17/2024 10:3 4 AM EDT 11/17/2024 10:35 AM EDT Narrative Resulting Agency Comment Performing Organization Information Site ID: QPT Name: [facility] Address: [address] [place] [address], [address] [place] [phone] Director: Mahad Gonzalez MD Lisandra Jimenez MD [facility] Final Result Performing Organization Address [facility] de Phone Number [facility] * (ABNORMAL) Urinalysis with reflex microscopic (clean catch) (11/17/2024 10:34 AM EDT) COLOR YELLOW YELLOW [facility] APPEARANCE CLEAR CLEAR [facility] SPECIFIC GRAVITY 1.017 1.001 - 1.035 [facility] PH 6.0 5.0 - 8.0 [facility] GLUCOSE NEGATIVE NEGATIVE [facility] BILIRUBIN NEGATIVE NEGATIVE [facility] KETONES NEGATIVE NEGATIVE [facility] OCCULT BLOOD NEGATIVE NEGATIVE [facility] PROTEIN NEGATIVE NEGATIVE [facility] NITRITE NEGATIVE NEGATIVE [facility] LEUKOCYTE ESTERASE TRACE(A) NEGATIVE [facility] WBC NONE SEEN < OR = 5 /HPF [facility] RBC NONE SEEN < OR = 2 /HPF [facility] SQUAMOUS EPITHELIAL CELLS NONE SEEN < OR = 5 /HPF [facility] BACTERIA NONE SEEN NONE SEEN /HPF [facility] HYALINE CAST NONE SEEN NONE SEEN /LPF [facility] Urine Urine specimen obtained by clean catch procedure / Unknown 11/17/2024 10:34 AM EDT 11/17/2024 10:35 AM EDT Narrative Resulting Agency Comment Performing Organization Information Site ID: QPT Name: [facility] Address: [address] [place] [address], [address] [place] [phone] Director: Mahad Gonzalez MD us Lisandra Jimenez MD LAB URINE ORDERABLES Final Resul t Performing Organization Address [facility] Co de Phone Number [facility] * Urine culture (clean catch) (11/17/2024 10:34 AM EDT) Only the most recent of3 resultswithin the time period is included. MICRO NUMBER [id number] [facility] SPECIMEN QUALITY Adequate [facility] SOURCE: ([facility]) URINE [facility] STATUS FINAL [facility] RESULT SEE NOTE [facility] Comment: Mixed genital celso isolated. These superficial bacteria are not indicative of a urinary tract infection. No further organism identification is warranted on this specimen. If clinically indicated, recollect clean-catch, mid-stream urine and transfer immediately to Urine Culture Transport Tube. Urine Urine specimen obtained by clean catch procedure / Unknown 11/17/2024 10:34 AM EDT 11/17/2024 10:35 AM EDT Narrative Resulting Agency Comment Performing Organization Information Site ID: QPT Name: [facility] Address: [address] [place] [address], [address] [place] [phone] Director: Mahad Gonzalez MD us Lisandra Jimenez MD LAB MICROBIOLOGY - GENERAL ORDER KARON Final Result [facility] * (ABNORMAL) POCT Urinalysis dipstick (11/17/2024 10:25 AM EDT) Only the most recent of3 resultswithin the time period is included. Color, UA Yellow Clarity, UA Clear Glucose, UA Negative Negative - 2000(110) ++++ mg/dL Bilirubin, UA Negative Negative - 4(70) +++ mg/dL Ketones, UA Negative Negative - 160(16) ++++ mg/dL Spec Grav, UA 1.015 1 - 1.03 Blood, UA Positive Negative - 50 Dallin/mcL pH, UA 5.0 5 - 9 Protein, UA Negative Negative - 1999(20) ++++ mg/dL Urobilinogen, UA 1.0 0.2 - 12 mg/dL Leukocytes, UA 1+ Negative - 500+++ José/mcL Nitrite, UA Negative Negative - Positive Urine 11/17/2024 10:2 5 AM EDT us Lisandra Jimenez MD POINT OF CARE TEST ENTER/EDIT OR DERABLES Final Result * Vitamin D 25 hydroxy (10/16/2024 3:08 PM EDT) Pathologist [facility] VITAMIN D,25-OH,TOTAL,IA 38 30 - 100 ng/mL [facility] Comment: Vitamin D Status 25-OH Vitamin D: Deficiency: <20 ng/mL Insufficiency: 20 - 29 ng/mL Optimal: > or = 30 ng/mL For 25-OH Vitamin D testing on patients on D2-supplementation and patients for whom quantitation of D2 and D3 fractions is required, the QuestAssureD(TM) 25-OH VIT D, (D2,D3), LC/MS/MS is recommended: order code 85532 (patients >2yrs). See Note 1 Note 1 For additional information, please refer to http://education.SportsBoard/faq/DVA723 (This link is being provided for informational/ educational purposes only.) Blood Venous blood specimen / Unknown 10/16/2024 3:08 PM EDT 10/16/2024 3:08 PM EDT Narrative Resulting Agency Comment Performing Organization Information Site ID: QPT Name: [facility] Address: [address] [place] [address], [address] [place] [phone] Director: Mahad Gonzalez MD Mena Purvis NP LAB BLOOD ORDERABLES Final Resu lt [facility] * (ABNORMAL) CBC and differential (10/16/2024 3:08 PM EDT) Pathologist [facility] WHITE BLOOD CELL COUNT 9.5 3.8 - 10.8 Thousand/u L [facility] RED BLOOD CELL COUNT 4.62 3.80 - 5.10 Million/uL [facility] HEMOGLOBIN 14.4 11.7 - 15.5 g/dL [facility] HEMATOCRIT 44.5 35.0 - 45.0 % [facility] MCV 96.3 80.0 - 100.0 fL [facility] MCH 31.2 27.0 - 33.0 pg [facility] MCHC 32.4 32.0 - 36.0 g/dL [facility] Comment: For adults, a slight decrease in the calculated MCHC value (in the range of 30 to 32 g/dL) is most likely not clinically significant; however, it should be interpreted with caution in correlation with other red cell parameters and the patient's clinical condition. RDW 13.1 11.0 - 15.0 % [facility] PLATELET COUNT 282 140 - 400 Thousand/u L [facility] MPV 10.5 7.5 - 12.5 fL [facility] ABSOLUTE NEUTROPHILS 5,757 1,500 - 7,800 cells/uL [facility] ABSOLUTE LYMPHOCYTES 2,185 850 - 3,900 cells/uL [facility] ABSOLUTE MONOCYTES 1,007(H) 200 - 950 cells/uL [facility] ABSOLUTE EOSINOPHILS 485 15 - 500 cells/uL [facility] ABSOLUTE BASOPHILS 67 0 - 200 cells/uL [facility] NEUTROPHILS 60.6 % [facility] LYMPHOCYTES 23.0 % [facility] MONOCYTES 10.6 % [facility] EOSINOPHILS 5.1 % [facility] BASOPHILS 0.7 % [facility] Blood Venous blood specimen / Unknown 10/16/2024 3:08 PM EDT 10/16/2024 3:08 PM EDT Narrative Resulting Agency Comment Performing Organization Information Site ID: QPT Name: [facility] Address: [address] [place] [address], [address] [place] [phone] Director: Mahad Gonzalez MD Mena Purvis NP LAB BLOOD ORDERABLES Final Resu lt [facility] * (ABNORMAL) Comprehensive metabolic panel (10/16/2024 3:08 PM EDT) [facility] Glucose 79 65 - 99 mg/dL [facility] Comment: Fasting reference interval BUN 30(H) 7 - 25 mg/dL [facility] Creatinine 0.96 0.60 - 1.00 mg/dL [facility] EGFR 60 > OR = 60 mL/min/1.7 3m2 [facility] BUN/CREATININE RATIO 31(H) 6 - 22 (calc) [facility] Sodium 140 135 - 146 mmol/L [facility] Potassium, Bld 4.9 3.5 - 5.3 mmol/L [facility] Chloride 104 98 - 110 mmol/L [facility] Carbon Dioxide 26 20 - 32 mmol/L [facility] Calcium 9.5 8.6 - 10.4 mg/dL [facility] PROTEIN, TOTAL 7.1 6.1 - 8.1 g/dL [facility] ALBUMIN 4.6 3.6 - 5.1 g/dL [facility] GLOBULIN 2.5 1.9 - 3.7 g/dL (calc) [facility] ALBUMIN/GLOBULIN RATIO 1.8 1.0 - 2.5 (calc) [facility] BILIRUBIN, TOTAL 0.3 0.2 - 1.2 mg/dL [facility] ALKALINE PHOSPHATASE 57 37 - 153 U/L [facility] AST 21 10 - 35 U/L [facility] ALT 15 6 - 29 U/L [facility] Blood Venous blood specimen / Unknown 10/16/2024 3:08 PM EDT 10/16/2024 3:08 PM EDT Narrative Resulting Agency Comment Performing Organization Information Site ID: QPT Name: [facility] Address: [address], [address] [place] [address] Director: Mahad Gonzalez MD Mena Purvis CARD RUNNER LAB BLOOD ORDERABLES Final Resu lt [facility] from Last 3 Months Insurance [address] [place] [address] [employer] MED[employer]ARE ADVANTAGE Care Teams Cafeteria Clerk Relationship Specialty Start Date End Date Benji Cantrell MD [address] [place] [address] PCP - [employer] 04/29/21 Lisandra Jimenez MD [address] [facility] [place] [phone] PCP - General Family Medicine 09/10/22
--- OUTSIDE RECORDS SUMMARY | 2024-12-10 10:56 | XMS_ITS | Encounter Summary ---
Author Organization [facility] Healthcare Address [address] [facility] [place] [address] Care Team Providers Care Digital Solutions Architect Name Role Phone Benji Cantrell MD Unavailable [phone] Lisandra Jimenez MD Primary Care Provider [phone] Encounter Details Date Type Department Care Team (Latest Contact Info) Description 10/19/2024 Results Follow-Up [facility] [address] [place] [address] Mena Purvis NP [address] [place] [address] CBC and differential, Comprehensive metabolic panel, Vitamin D 25 hydroxy Social History Tobacco Use Types Packs/Day Years [...] than three times a week 12/10/2022 Attends Sabianist Services Not on file 12/10 Do you belong to any clubs o r organizations such as shinto groups, unions, fraternal or athletic groups, or [...] place to sleep or slept in a care home (including now)? No 12/10/2022 Comments Unknown Sex and Gender Information Value Date Recorded Sex Assigned at Not on file Legal Sex Female 7:21 PM EDT Gender Identity Female 07/11/2022 7:21 PM EDT Sexual Orientation Not on file documented as of this encounter Plan of Treatment Upcoming Encounters Date Type Department Care Team (Late st Contact Info) Description 02/17/2025 9:40 AM EDT Office Visit [facility] [place] [facility] [address] [place] [phone] Lisandra Jimenez MD [address] [place], [place] [phone] documented as of this encounter Visit Diagnoses Not on filedocumented in this encounter Additional Health Concerns Assessment Noted Time PHQ-9 Depression Total Score: 0 10/17/19 25 2:00 PM EDT documented as of this encounter Care Teams Digital Solutions Architect Relationship Specialty Start Date End Date Benji Cantrell MD [address] [facility] [address] [place] [address] PCP - [employer] 04/29/21 Lisandra Jimenez MD [address] [place], [place] [phone] PCP - General Family Medicine 09/10/22 documented as of this encounter
--- OUTSIDE RECORDS SUMMARY | 2024-12-10 10:56 | XMS_ITS | Patient Health Record ---
Author Organization [facility] [place] Address [address] [place] [address] Care Team Providers Care Consultant Intern Name Role Phone Lisandra Jimenez MD Primary Care Provider Unavailabl e Allergies No Known Allergies Reason For Referral No Information Medications Medication SIG (Take, Route, Frequency, Duration) Notes Start Date End Date Status Famotidine 20 MG 1 tablet at bedtime as needed Orally Once a day for 30 day(s) Active Fluticasone Propionate 50 MCG/ACT 1 spray in each nostril Nasally Once a day for 30 day(s) Active Tylenol with Codeine #3 Active Azelastine HCl 0.15 % 2 sprays in each n ostril Nasally Once a day for 30 day(s) Active Social History Tobacco Use: Social History Observation Description Date Details (start date - stop date) Never Smoker NA - NA Tobacco Use/Smoking Question Answer Notes Patient is a nonsmoker Plan Of Treatment No Information Insurance Providers Payer Name Payer Address Payer Phone Subscriber Number Group Number Insured Name Patient Relationship to Insured Coverage Start Date Coverage End Date [employer] MEDICARE [address] [place] [address] [id number] Marck Maria Self - patient is the insured 2 Medical (General) History Medical History History ICD Code cataracts osteoporosis Surgical History Surgery Date(Month/Year)
--- OUTSIDE RECORDS SUMMARY | 2024-12-10 10:56 | XMS_ITS | Encounter Summary ---
Author Organization [facility] Address [address] [facility] [place] [address] Care Team Providers Care Fire Management Officer Name Role Phone Benji Cantrell MD Unavailable [phone] Lisandra Jimenez MD Primary Care Provider [phone] Encounter Details Date Type Department Care Team (Late st Contact Info) Description 06/04/2023 Abstract [facility] [address] [place] [phone] Linda Robins NP Social History Tobacco Use Types Packs/Day Years Used Date Smoking Tobacco: Never Smokeless Tobacco: Never Tobacco Cessation:Counseling Given: Not Answered Alcohol Use Standard Drinks/Week Comments Never 0 [...] than three times a week 12/10/2022 Attends Bahai Services Not on file 12/10 Do you belong to any clubs o r organizations such as buddhist groups, unions, fraternal or athletic groups, or [...] place to sleep or slept in a skilled nursing (including now)? No 12/10/2022 Comments Unknown Sex [...] EDT Office Visit [facility] [address] [place] [address] Lisandra Jimenez MD [address] [place], [place] [phone] documented as of this encounter Visit Diagnoses Not on filedocumented in this encounter Care Teams Fire Management Officer Relationship Specialty Start Date End Date Benji Cantrell MD [address] [facility] [address] [place] [address] PCP - [employer] 04/29/21 Lisandra Jimenez MD [address] [place] [address] PCP - General Family Medicine 09/10/22 documented as of this encounter
--- OUTSIDE RECORDS SUMMARY | 2024-12-10 10:56 | XMS_ITS | Encounter Summary ---
Author Organization [facility] Address [address] [facility] [place] [address] Care Team Providers Care Twister Frame Tender Name Role Phone Benji Cantrell MD Unavailable [phone] Lisandra Jimenez MD Primary Care Provider [phone] Encounter Details Date Type Department Care Team (Late st Contact Info) Description 12/09/2022 Abstract [facility] Family Medicine [address] [place] [address] Lisandra Jimenez MD [address] [place], [place] [id number] Social History Tobacco Use Types Packs/Day Years [...] than three times a week 12/10/2022 Attends Mandaeism Services Not on file 12/10 Do you belong to any clubs o r organizations such as adventist groups, unions, fraternal or athletic groups, or [...] No 12/10/2022 Housing Stability Vital Sign Answer Chrits e Recorded In the last 12 months, [...] place to sleep or slept in a prison (including now)? No 12/10/2022 Comments Unknown Sex and Gender Information Value Date Recorded Sex Assigned at Not on file Legal Sex Female 7:21 PM EDT Gender Identity Female 07/11/2022 7:21 PM EDT Sexual Orientation Not on file documented as of this encounter Functional Status * Audit-C Score Answer Date of Assessment Author 0 12/10/2022 7:54 AM EDT Mychart, Generic * Q1: How often do you have a drink containing alcohol? Answer Date of Assessment Author Never 12/10/2022 7:54 AM EDT Mychart, Generic * Q2: How many drinks containing alcohol do you have on a typical day when you are drinking? Answer Date of Assessment Author Patient does not drink 12/10/2022 7:54 AM EDT My chart, Generic * Q3: How often do you have six or more drinks on one occasion? Answer Date of Assessment Author Never 12/10/2022 7:54 AM EDT Mychart, Generic documented as of this encounter Plan of Treatment Upcoming Encounters Date Type Department Care Team (Late st Contact Info) Description 02/17/2025 9:40 AM EDT Office Visit [facility] [address] [place] [phone] Lisandra Jimenez MD [address] [place], [place] [id number] documented as of this encounter Visit Diagnoses Not on filedocumented in this encounter Care Teams Twister Frame Tender Relationship Specialty Start Date End Date Benji Cantrell MD [address] [place] [address] PCP - [employer] 04/29/21 Lisandra Jimenez MD [address] [facility] [place], [place] [id number] PCP - General Family Medicine 09/10/22 documented as of this encounter
--- OUTSIDE RECORDS SUMMARY | 2024-12-10 10:56 | XMS_ITS | Encounter Summary ---
Author Organization [facility] Address [address] [facility] [place] [address] Care Team Providers Care Publicist Name Role Phone Benji Cantrell MD Unavailable [phone] Lisandra Jimenez MD Primary Care Provider [phone] Encounter Details Date Type Department Care Team (Late st Contact Info) Description 01/02/2023 Abstract [facility] Family Medicine [address] [place] [address] Lisandra Jimenez MD [address] [place], [place] [id number] Social History Tobacco Use Types Packs/Day Years [...] than three times a week 12/10/2022 Attends Yazidi Services Not on file 12/10 Do you [...] place to sleep or slept in a long-term (including now)? No 12/10/2022 Comments Unknown Sex and Gender Information Value Date Recorded Sex Assigned at Not on file Legal Sex Female 7:21 PM EDT Gender Identity Female 07/11/2022 7:21 PM EDT Sexual Orientation Not on file documented as of this encounter Plan of Treatment Upcoming Encounters Date Type Department Care Team (Late st Contact Info) Description 02/17/2025 9:40 AM EDT Office Visit [facility] Family Medicine [address] [place] [address] Lisandra Jimenez MD [address] [place], [place] [phone] documented as of this encounter Visit Diagnoses Not on filedocumented in this encounter Care Teams Publicist Relationship Specialty Start Date End Date Benji Cantrell MD [address] [facility] [address] [place] [address] PCP - [employer] 04/29/21 Lisandra Jimenez MD [address] [place], [place] [id number] PCP - General Family Medicine 09/10/22 documented as of this encounter
--- OUTSIDE RECORDS SUMMARY | 2024-12-10 10:56 | XMS_ITS | Encounter Summary ---
Author Organization [facility] Address [address] [facility] [place] [address] Care Team Providers Care Coconut Boiler Name Role Phone Benji Cantrell MD Unavailable [phone] Lisandra Jimenez MD Primary Care Provider [phone] Reason for Visit * Reason Comments Med Refill Encounter Details Date Type Department Care Team ([facility] Contact Info) Description 02/04/2023 Refill [facility] Family Medicine [address] [place] [address] Lisandra Jimenez MD [address] [place] [address] Gastroesophageal reflux disease without esophagitis (Primary Dx) Social History Tobacco Use Types Packs/Day Years [...] than three times a week 12/10/2022 Attends Gnosticism Services Not on file 12/10 Do you belong to any clubs o r organizations such as hinduism groups, unions, fraternal or athletic groups, or [...] on file documented as of this encounter Miscellaneous Notes * Telephone Encounter - Lisandra Jimenez MD - 02/04/2023 8:39 AM EDT Approvals with refills documented in this encounter Plan of Treatment Upcoming Encounters Date Type Department Care Team (Late st Contact Info) Description 02/17/2025 9:40 AM EDT Office Visit [facility] [address] [place] [phone] Lisandra Jimenez MD [address] [place], [place] [phone] documented as of this encounter Visit Diagnoses Diagnosis Gastroesophageal reflux disease without esophagitis- Primary Esophageal reflux documented in this encounter Care Teams Coconut Boiler Relationship Specialty Start Date End Date Benji Cantrell MD [address] [place] [address] PCP - [employer] 04/29/21 Lisandra Jimenez MD [address] [place], [place] [id number] PCP - General Family Medicine 09/10/22 documented as of this encounter
--- OUTSIDE RECORDS SUMMARY | 2024-12-10 10:56 | XMS_ITS | Encounter Summary ---
Author Organization [facility] Address [address] [facility] [place] [address] Care Team Providers Care Bolting Machine Operator Name Role Phone Benji Cantrell MD Unavailable [phone] Lisandra Jimenez MD Primary Care Provider [phone] Encounter Details Date Type Department Care Team (Late st Contact Info) Description 01/07/2023 Abstract [facility] Family Medicine [address] [place] [address] Lisandra Jimenez MD [address] [place], [place] [phone] Social History Tobacco Use Types Packs/Day Years [...] any clubs o r organizations such as restoration groups, unions, fraternal or athletic groups, or [...] place to sleep or slept in a half-way (including now)? No 12/10/2022 Comments Unknown Sex and Gender Information Value Date Recorded Sex Assigned at Not on file Legal Sex Female 7:21 PM EDT Gender Identity Female 07/11/2022 7:21 PM EDT Sexual Orientation Not on file documented as of this encounter Plan of Treatment Upcoming Encounters Date Type Department Care Team (Late st Contact Info) Description 02/17/2025 9:40 AM EDT Office Visit [facility] Family Medicine [address] [place] [address] Lisandra Jimenez MD [address] [place], [place] [phone] documented as of this encounter Visit Diagnoses Not on filedocumented in this encounter Care Teams Bolting Machine Operator Relationship Specialty Start Date End Date Benji Cantrell MD [address] [facility] [address] [place] [address] PCP - [employer] 04/29/21 Lisandra Jimenez MD [address] [place], [place] [phone] PCP - General Family Medicine 09/10/22 documented as of this encounter
--- OUTSIDE RECORDS SUMMARY | 2024-12-10 10:58 | XMS_ITS | CCD ---
Author Organization [facility] Care Team Providers Care Striper Spray Gun Name Role Phone Benji Cantrell MD Unavailable Tony DE LA CRUZ, Lisandra Kwong Primary Care Provider [phone] LISANDRA JIMENEZ Primary Care Unavailable SERGIO JARVIS Attending Unavailable KELSEY PEREZ Admitting Unavailable SERGIO JARVIS Attending Unavailable SERGIO JARVIS Referring Unavailable LISANDRA JIMENEZ Primary Care Unavailable Benji Cantrell MD Unavailable Lisandra Jimenez MD Primary Care Provider Vance DE LA CRUZ, Mere Moon Attending Unavailable Gikimi DE LA CRUZ, Andrius Moon Attending Unavailable Gikimi DE LA CRUZ, Andrius Moon Attending Unavailable Gikimi DE LA CRUZ, Andrius Moon Attending Unavailable KINJAL URBANO Attending Unavailab KATHIA Stringer Attending Unavailable YANETH DUPREE Attending Unavailable TONY, LISANDRA Varghese Referring Unavailable BOYCEBELÉN Attending Unavailable TONY, LISANDRA F Referring Unavailable TONY LISANDRA F Attending Unavailable BELÉN BOYCE Attending Unavailable TONY, LISANDRA F Referring Unavailable BOYCEBELÉN Attending Unavailable TONY, LISANDRA F Referring Unavailable BOYCEBELÉN Attending Unavailable TONY, LISANDRA F Referring Unavailable BOYCEBELÉN Attending Unavailable TONY, LISANDRA F Referring Unavailable YANETH DUPREE Attending Unavailable TONY, LISANDRA F Referring Unavailable TONY, LISANDRA F Attending Unavailable DIANA GOMEZ Attending Unavailable TONY, LISANDRA F Attending Unavailable TONY, LISANDRA F Attending Unavailable TONY, LISANDRA F Referring Unavailable Allergies Allergy Classification Reported Allergen(s) Allergy Type Date of Onset Reaction(s) Facility (20 sources) diphenhydrAMINE Drug Allergy 03-25-20 Unknown [facility] (20 sources) Sulfonamides (Antibiotic) Drug Allergy 09-02-19 Other (See Comments) [facility] (1 source) diphenhydrAMINE; Translations: [DIPHENHYDRAMINE HCL] [...] Indications: Age-related osteoporosis without current pathological fracture Take 1 [...] 0 Active benzonatate 100 mg oral capsule (20 sources) Non-narcotic Antitussive Start: 01-11-2024 take 1 capsule by mouth three times daily as needed benzonatate (Tessalon) 100 MG capsule Take 100 mg by mouth 3 (three) times a day as needed 01/11/2024 Active celecoxib 200 mg oral capsule (14 sources) Nonsteroidal Anti-inflammatory Drug Start: 08-19-2023 celecoxib (CeleBREX) 200 MG capsule 08/19/2023 Active cephalexin 500 mg oral capsule (6 sources) Cephalosporin Antibacterial Start: 10-06-2024 End: 10-16-2024 take 1 capsule by mouth in the morning cephalexin (Keflex) 500 MG capsule Indications: Acute cystitis with hematuria Take 1 capsule (500 mg) by mouth in the morning and 1 capsule (500 mg) before bedtime. Do all this for 10 days. 20 capsule 10/06/2024 10/16/2024 Active docusate sodium 100 mg oral capsule (20 sources) take 1 capsule by mouth in the morning docusate sodium (Colace) 100 MG capsule Take 100 mg by mouth in the morning and 100 mg before bedtime. Active estradiol 0.1 mg/ml vaginal cream (2 sources) Estrogen Start: 11-17-2024 End: 11-17-2025 estradiol (Estrace) 0.1 MG/GM vaginal cream Indications: Atrophic vaginitis Apply peasized amount to vagina nightly for 1 week then every Saturday/Saturday/ ay. 42.5 g 5 11/17/2024 11/17/2025 Active famotidine 20 mg oral tablet (20 [...] bedtime. 180 tablet 11 03/03/2024 02/16/2027 Active nitrofurantoin, macrocrystals 25 mg / nitrofurantoin, monohydrate 75 mg oral capsule (1 source) Nitrofuran Antibacterial Start: 11-06-2024 End: 11-11-2024 take 1 capsule by mouth in the morning nitrofurantoin, macrocrystal-mono hydrate, (Macrobid) 100 MG capsule Indications: Acute cystitis with hematuria Take 1 capsule (100 mg) by mouth in the morning and 1 capsule (100 mg) before bedtime. Do all this for 5 days. 10 capsule 11/06/2024 11/11/2024 Active oxyCODONE hydrochloride 5 mg oral tablet [...] (acquired), unspecified foot] Onset: 02-22-2022 10-10-2022 Chronic Deficiency and other anemia (2 sources) Iron deficiency anemia; Translations: [Iron deficiency anemia, unspecified] 10-16-2024 Episodic E Codes: Fall (2 sources) Fall; Translations: [Unspecified fall, initial encounter] 05-11-2024 Episodic Esophageal disorders (20 sources) Gastroesophageal reflux disease; Translations: [Gastro-esophageal reflux disease without esophagitis] Onset: 02-22-2022 10-10-2022 Chronic Fluid and electrolyte disorders (2 sources) Dehydration; Translations: [Dehydration] 01-10-2024 Episodic Genitourinary symptoms and ill-defined conditions (4 sources) Mixed urinary incontinence; Translations: [Mixed incontinence] 03-03-2024 Chronic Genitourinary symptoms and ill-defined conditions (4 sources) Dysuria; Translations: [Dysuria] 10-06-2024 Episodic Immunizations and screening for infectious disease (4 sources) Patient encounter status; Translations: [Encounter for immunization] 02-03-2024 Episodic Malaise and fatigue (1 source) Weakness; Translations: [Weakness] Onset: 01-10-2024 Episodic Menopausal disorders (2 sources) Atrophic vaginitis; Translations: [Postmenopausal atrophic vaginitis] 11-17-2024 Chronic Neoplasms of unspecified nature or uncertain behavior (4 sources) Neoplastic disease; Translations: [Neoplasm of unspecified behavior of bone, soft tissue, and skin] 10-16-2024 Episodic Osteoarthritis (20 sources) Osteoarthritis of left [...] (1 source) Weakness - Generalized Onset: 01-10-2024 Urinary tract infections (3 sources) Acute cystitis; Translations: [Acute cystitis with hematuria] 10-06-2024 Episodic Viral infection (2 sources) COVID-19; Translations: [Disease caused by 2019-nCoV] Onset: 01-10-2024 Past or Other Problems Problem Classification Problem Date Documented Date Episodic/Chronic Acute posthemorrhagic anemia (20 sources) Anemia following acute postoperative blood loss; Translations: [Acute posthemorrhagic anemia] Onset: 12-30-2022 01-09-2023 Episodic Cardiac dysrhythmias (20 sources) Tachycardia; Translations: [Tachycardia, unspecified] Onset: 12-28-2022 01-09-2023 Episodic Mood disorders (20 sources) Mood disorders Onset: 06-10-2023 Resolved: 10-16-2024 06-10-2023 Other connective tissue disease (1 source) History of repair of hip joint; Translations: [Presence of left artificial hip joint] Onset: 12-29-2022 Resolved: 12-30-2022 12-30-2022 Chronic Spondylosis; intervertebral disc disorders; other back problems (20 sources) Disorder of sacrum; Translations: [Sacrococcygeal disorders, not elsewhere classified] Onset: 04-05-2022 11-29-2022 Episodic Viral infection (20 sources) Disease caused by 2019-nCoV; Translations: [COVID-19] Onset: 01-10-2024 02-01-2024 Episodic Results Test Name Value Interpretation Reference Range Facility Urinalysis macro (dipstick) panel (U)on 11-17-2024 Bilirubin, UA Negative Negative - 4(70) +++ mg/dL [facility] Blood, UA Positive Negative - 50 Dallin/mcL [facility] Clarity, UA Clear [facility] re Color, UA Yellow [facility] Glucose, UA Negative Negative - 1999(110) ++++ mg/dL [facility] Interpretation and review of laboratory results Abnormal [facility] Ketones, UA Negative Negative - 160(16) ++++ mg/dL [facility] Leukocytes, UA 1+ Negative - 500+++ José/mcL [facility] Nitrite, UA Negative Negative - Positive [facility] pH, UA 5 5 - 9 [facility], [facility] Negative Negative - 1999(20) ++++ mg/dL [facility] Spec Grav, UA 1.015 1 - 1.03 [facility] Urobilinogen, UA 1.0 0.2 - 12 mg/dL [facility] macro (dipstick) panel (U)on 10-06-2024 Bilirubin, UA Negative Negative - 4(70) +++ mg/dL [facility] Blood, UA Positive Negative - 50 Dallin/mcL [facility] Clarity, UA Clear [facility] Color, UA Yellow [facility] Glucose, UA Negative Negative - 1999(110) ++++ mg/dL [facility] Ketones, UA Negative Negative - 160(16) ++++ mg/dL [facility] Leukocytes, UA Positive Negative - 500+++ José/mcL [facility] Nitrite, UA Negative Negative - Positive [facility] pH, UA 5 5 - 9 [facility] Protein, UA Positive Negative - 1999(20) ++++ mg/dL [facility] Spec Grav, UA 1 1 - 1.03 [facility] Urobilinogen, UA 1.0 0.2 - 12 mg/dL [facility] DEXA BONE DENSITYon 05-15-19 25 DEXA BONE DENSITY Examination: DEXA BONE DENSITY [...] 24 ABSOLUTE BASOPHIL 0.0 X10E9/L Normal 0.0-0.2 [facility] Comment on above: Performed By: #### C BCA, CMP, 84914-3 #### [facility] ([id number]) [address] [place] [address], [place] [address] ABSOLUTE NEUTROPHIL 5.0 X10E9/L Normal 1.5-6.6 [facility] Comment on above: Performed By: #### Deanna BROWN CMP, 78746-7 #### [facility] ([id number]) [address] [place] [address] 74080 Basophils/100 WBC (Bld) 0.2 % Normal [facility] Comment on above: Performed By: #### Deanna BROWN CMP, #### [facility] ([id number]) [address] [place] [address] 47945 Eosinophils (Bld) [#/Vol] 0.1 10*3/uL Normal 0.0-0.4 [facility] Comment on above: Performed By: #### Deanna BROWN CMP, 31116-8 #### [facility] ([id number]) [address] [place] [address] 95218 Eosinophils/100 WBC (Bld) 1.2 % Normal [facility] Comment on above: Performed By: #### Deanna BROWN [facility], #### [facility] ([id number]) [address] [place] [address] 84952 Erythrocyte distribution width (RBC) [Ratio] 13.4 % Normal 11.5-15.0 [facility] Comment on above: Performed By: #### Deanna BROWN CMP, #### [facility] ([id number]) [address] [place] [address] 80891 Hematocrit (Bld) [Volume fraction] 39.6 % Normal 35-47 [facility] Comment on above: Performed By: #### Deanna BROWN CMP, #### [facility] ([id number]) [address] [place] [address] 19741 Hemoglobin (Bld) [Mass/Vol] 13.2 g/dL Normal 11.7-15.5 [facility] Comment on above: Performed By: #### C REDD BROWN, #### [facility] ([id number]) [address] [place] [address] 88067 Lymphocytes (Bld) [#/Vol] 1.0 10*3/uL Normal 1.0-3.5 [facility] Comment on above: Performed By: #### Deanna BROWN CMP, #### [facility] ([id number]) [address] [place] [address] 49496 Lymphocytes/100 WBC (Bld) 14.2 % Normal [facility] Comment on above: Performed By: #### Deanna BROWN CMP, #### [facility] ([id number]) [address] [place] [address] 25738 MCH (RBC) [Entitic mass] 31.0 pg Normal 27-34 [facility] Comment on above: Performed By: #### Deanna BROWN CMP, #### [facility] ([id number]) [address] [place] [address] 00193 MCHC (RBC) [Mass/Vol] 33.4 g/dL Normal 32-36 [facility] Comment on above: Performed By: #### Deanna BROWN CMP, #### [facility] ([id number]) [address] [place] [address] 42013 MCV (RBC) [Entitic vol] 93 fL Normal 80-100 [facility] Comment on above: Performed By: #### Deanna BROWN CMP, #### [facility] ([id number]) [address] [place] [address] 75853 Monocytes (Bld) [#/Vol] 1.2 10*3/uL High 0-0.9 [facility] Comment on above: Performed By: #### Deanna BROWN CMP, #### [facility] ([id number]) [address] [place] [address] 13000 Monocytes/100 WBC (Bld) 16.8 % Normal [facility] Comment on above: Performed By: #### C KEVIN, CMP, 99935-9 #### [facility] ([id number]) [address] [place] [address] 06855 Neutrophils/100 WBC (Bld) 67.6 % Normal [facility] Comment on above: Performed By: #### C KEVIN, CMP, 89372-9 #### [facility] ([id number]) [address] [place] [address] 86726 Platelet mean volume (Bld) [Entitic vol] 8.6 fL Normal 7-12 [facility] Comment on above: Performed By: #### C KEVIN, CMP, 50005-6 #### [facility] ([id number]) [address] [place] [address] 00887 Platelets (Bld) [#/Vol] 172 10*3/uL Normal 150-450 [facility] Comment on above: Performed By: #### Deanna BROWN, CMP, 11713-8 #### [facility] ([id number]) [address] [place] [address] 81146 RBC COUNT 4.26 X10E12/L Normal 3.80-5.20 [facility] Comment on above: Performed By: #### C BCA, CMP, 12805-7 #### [facility] ([id number]) [address] [place] [address] 85213 WBC (Bld) [#/Vol] 7.3 10*3/uL Normal 4.0-11.0 [facility] Comment on above: Performed By: #### C KEVIN, CMP, 18956-7 #### [facility] ([id number]) [address] [place] [address] 00040 COMPREHENSIVE METABOLIC PANE [facility] 01-12-2024 Albumin [Mass/Vol] 3.8 g/dL Normal 3.2-5.3 [facility] Comment on above: Performed By: #### B ANJUM LIVR, CBCA #### [facility] ([id number]) [address] [place] [address] 69755 ALP [Catalytic activity/Vol] 49 U/L Normal 39-130 [facility] Comment on above: Performed By: #### B ANJUM, LIVR, CBCA #### [facility] ([id number]) [address] [place] [address] 25176 ALT [Catalytic activity/Vol] 28 U/L Normal 0-31 [facility] Comment on above: Performed By: #### B ANJUM LIVR, CBCA #### [facility] ([id number]) [address] [place] [address] 28759 Anion gap [Moles/Vol] 9 mmol/L Normal 5-15 [facility] Comment on above: Performed By: #### B ANJUM LIVR, CBCA #### [facility] ([id number]) [address] [place] [address] 09046 AST [Catalytic activity/Vol] 31 U/L Normal 0-41 [facility] Comment on above: Performed By: #### B ANJUM LIVR, CBCA #### [facility] ([id number]) [address] [place] [address] 88702 Bilirubin [Mass/Vol] 0.4 mg/dL Normal 0.3-1.2 [facility] Comment on above: Performed By: #### B ANJUM LIVR, CBCA #### [facility] ([id number]) [address] [place] [address] 36097 Calcium [Mass/Vol] 8.5 mg/dL Normal 8.5-10.5 [facility] Comment on above: Performed By: #### B ANJUM LIVNaima CBCA #### [facility] ([id number]) [address] [place] [address] 85436 Chloride [Moles/Vol] 104 mmol/L Normal 98-109 [facility] Comment on above: Performed By: #### B ANJUM LIVR, CBCA #### [facility] ([id number]) [address] [place] [address] 88043 CO2 [Moles/Vol] 25 mmol/L Normal 22-32 [facility] Comment on above: Performed By: #### B ANJUM LIVNaima CBCA #### [facility] ([id number]) [address] [place] [address] 38460 Creatinine [Mass/Vol] 0.79 mg/dL Normal 0.40-1.00 [facility] Comment on above: Result Comment: METH OD TRACEABLE TO IDMS STANDARD Performed By: #### B DIPTI VALERO CBCA #### [facility] ([id number]) [address] [place] [address] 07213 GFR/1.73 sq M.predicted among non-blacks MDRD (S/P/Bld) [Vol rate/Area] 77 mL/min/{1.73_m2} Normal >59 [facility] Comment on above: Result Comment: Reported eGFR is based on the CKD-EPI 2020 equation that does not use a race coefficient. Performed By: #### B ANJUM LIVNaima, CBCA #### [facility] ([id number]) [address] [place] [address] 47685 Glucose [Mass/Vol] 78 mg/dL Normal 65-99 [facility] Comment on above: Performed By: #### B ANJUM LIVR, CBCA #### [facility] ([id number]) [address] [place] [address] 04229 Potassium [Moles/Vol] 3.7 mmol/L Normal 3.5-5.0 [facility] Comment on above: Performed By: #### B MP, LIVR, CBCA #### [facility] ([id number]) [address] [place] [address] 33539 Protein [Mass/Vol] 6.8 g/dL Normal 6.0-8.0 [facility] Comment on above: Performed By: #### B MP, LIVR, CBCA #### [facility] ([id number]) [address] [place] [address] 20498 Sodium [Moles/Vol] 138 mmol/L Normal 134-146 [facility] Comment on above: Performed By: #### B MP, LIVR, CBCA #### [facility] ([id number]) [address] [place] [address] 89628 Urea nitrogen [Mass/Vol] 18 mg/dL Normal 5-27 [facility] Comment on above: Performed By: #### B MP, LIVR, CBCA #### [facility] ([id number]) [address] [place] [address] 05576 MAGNESIUMon 01-12-2024 Magnesium [Mass/Vol] 2.2 mg/dL Normal 1.8-2.6 [facility] Comment on above: Performed By: #### B MP, LIVR, CBCA #### [facility] ([id number]) [address] [place] [address] 95401 CBC AND AUTO DIFFon 01-11-20 24 ABSOLUTE BASOPHIL 0.0 X10E9/L Normal 0.0-0.2 [facility] Comment on above: Performed By: #### C BCA, CMP, 47218-3, THYR #### [facility] ([id number]) [address] [place] [address] 95765 ABSOLUTE NEUTROPHIL 4.2 X10E9/L Normal 1.5-6.6 [facility] Comment on above: Performed By: #### C KEVIN, CMP, , THYR #### [facility] ([id number]) [address] [place] [address] 48619 Basophils/100 WBC (Bld) 0.2 % Normal [facility] Comment on above: Performed By: #### C KEVIN CMP, , THYR #### [facility] ([id number]) [address] [place] [address] 06559 Eosinophils (Bld) [#/Vol] 0.0 10*3/uL Normal 0.0-0.4 [facility] Comment on above: Performed By: #### C KEVIN CMP, , THYR #### [facility] ([id number]) [address] [place] [address] 82546 Eosinophils/100 WBC (Bld) 0.2 % Normal [facility] Comment on above: Performed By: #### C KEVIN, CMP, , THYR #### [facility] ([id number]) [address] [place] [address] 58332 Erythrocyte distribution width (RBC) [Ratio] 13.1 % Normal 11.5-15.0 [facility] Comment on above: Performed By: #### C KEVIN CMP, , THYR #### [facility] ([id number]) [address] [place] [address] 50621 Hematocrit (Bld) [Volume fraction] 37.4 % Normal 35-47 [facility] Comment on above: Performed By: #### C BCA CMP, , THYR #### [facility] ([id number]) [address] [place] [address] 14124 Hemoglobin (Bld) [Mass/Vol] 12.7 g/dL Normal 11.7-15.5 [facility] Comment on above: Performed By: #### C BCA, CMP, , THYR #### [facility] ([id number]) [address] [place] [address] 73405 Lymphocytes (Bld) [#/Vol] 0.9 10*3/uL Low 1.0-3.5 [facility] Comment on above: Performed By: #### C KEVIN, CMP, , THYR #### [facility] ([id number]) [address] [place] [address] 35961 Lymphocytes/100 WBC (Bld) 13.6 % Normal [facility] Comment on above: Performed By: #### C REDD BROWN, , THYR #### [facility] ([id number]) [address] [place] [address] 46115 MCH (RBC) [Entitic mass] 31.2 pg Normal 27-34 [facility] Comment on above: Performed By: #### C KEVIN, CMP, , THYR #### [facility] ([id number]) [address] [place] [address] 47749 MCHC (RBC) [Mass/Vol] 33.9 g/dL Normal 32-36 [facility] Comment on above: Performed By: #### C KEVIN CMP, , THYR #### [facility] ([id number]) [address] [place] [address] 75928 MCV (RBC) [Entitic vol] 92 fL Normal 80-100 [facility] Comment on above: Performed By: #### C KEVIN, CMP, , THYR #### [facility] ([id number]) [address] [place] [address] 51620 Monocytes (Bld) [#/Vol] 1.2 10*3/uL High 0-0.9 [facility] Comment on above: Performed By: #### C BCA, CMP, , THYR #### [facility] ([id number]) [address] [place] [address] 34288 Monocytes/100 WBC (Bld) 19.3 % Normal [facility] Comment on above: Performed By: #### C BCA, CMP, , THYR #### [facility] ([id number]) [address] [place] [address] 71185 Neutrophils/100 WBC (Bld) 66.7 % Normal [facility] Comment on above: Performed By: #### C KEVIN, CMP, , THYR #### [facility] ([id number]) [address] [place] [address] 46239 Platelet mean volume (Bld) [Entitic vol] 8.3 fL Normal 7-12 [facility] Comment on above: Performed By: #### C BCA, CMP, , THYR #### [facility] ([id number]) [address] [place] [address] 84005 Platelets (Bld) [#/Vol] 174 10*3/uL Normal 150-450 [facility] Comment on above: Performed By: #### C BCA, CMP, , THYR #### [facility] ([id number]) [address] [place] [address] 62033 RBC COUNT 4.06 X10E12/L Normal 3.80-5.20 [facility] Comment on above: Performed By: #### C BCA, CMP, , THYR #### [facility] ([id number]) [address] [place] [address] 07666 WBC (Bld) [#/Vol] 6.3 10*3/uL Normal 4.0-11.0 [facility] Comment on above: Performed By: #### C BCA, CMP, , THYR #### [facility] ([id number]) [address] [place] [address] 37058 COMPREHENSIVE METABOLIC PANE [place] 01-11-2024 Albumin [Mass/Vol] 3.6 g/dL Normal 3.2-5.3 [facility] Comment on above: Performed By: #### C BCA, CMP, , THYR #### [facility] ([id number]) [address] [place] [address] 67203 ALP [Catalytic activity/Vol] 47 U/L Normal 39-130 [facility] Comment on above: Performed By: #### C BCA, CMP, , THYR #### [facility] ([id number]) [address] [place] [address] 15955 ALT [Catalytic activity/Vol] 27 U/L Normal 0-31 [facility] Comment on above: Performed By: #### C BCA, CMP, , THYR #### [facility] ([id number]) [address] [place] [address] 18602 Anion gap [Moles/Vol] 9 mmol/L Normal 5-15 [facility] Comment on above: Performed By: #### C BCA, CMP, , THYR #### [facility] ([id number]) [address] [place] [address] 69351 AST [Catalytic activity/Vol] 28 U/L Normal 0-41 [facility] Comment on above: Performed By: #### C BCA, CMP, , THYR #### [facility] ([id number]) [address] [place] [address] 37741 Bilirubin [Mass/Vol] 0.5 mg/dL Normal 0.3-1.2 [facility] Comment on above: Performed By: #### C BCA, CMP, , THYR #### [facility] [facility] ([id number]) [address] [place] [address] 66976 Calcium [Mass/Vol] 8.5 mg/dL Normal 8.5-10.5 [facility] Comment on above: Performed By: #### C REDD BROWN, , THYR #### [facility] ([id number]) [address] [place] [address] 22080 Chloride [Moles/Vol] 106 mmol/L Normal 98-109 [facility] Comment on above: Performed By: #### C REDD BROWN, , THYR #### [facility] ([id number]) [address] [place] [address] 29294 CO2 [Moles/Vol] 24 mmol/L Normal 22-32 [facility] Comment on above: Performed By: #### C REDD BROWN, , THYR #### [facility] ([id number]) [address] [place] [address] 33510 Creatinine [Mass/Vol] 0.74 mg/dL Normal 0.40-1.00 [facility] Comment on above: Result Comment: METH OD TRACEABLE TO IDMS STANDARD Performed By: #### C REDD BROWN, , THYR #### [facility] ([id number]) [address] [place] [address] 35990 GFR/1.73 sq M.predicted among non-blacks MDRD (S/P/Bld) [Vol rate/Area] 83 mL/min/{1.73_m2} Normal >59 [facility] Comment on above: Result Comment: Reported eGFR is based on the CKD-EPI 2020 equation that does not use a race coefficient. Performed By: #### C REDD BROWN, , THYR #### [facility] ([id number]) [address] [place] [address] 38612 Glucose [Mass/Vol] 91 mg/dL Normal 65-99 [facility] Comment on above: Performed By: #### C KEVIN, CMP, , THYR #### [facility] ([id number]) [address] [place] [address] 57987 Potassium [Moles/Vol] 3.7 mmol/L Normal 3.5-5.0 [facility] Comment on above: Performed By: #### C BCA, CMP, , THYR #### [facility] ([id number]) [address] [place] [address] 89541 Protein [Mass/Vol] 6.5 g/dL Normal 6.0-8.0 [facility] Comment on above: Performed By: #### C KEVIN, CMP, , THYR #### [facility] ([id number]) [address] [place] [address] 06643 Sodium [Moles/Vol] 139 mmol/L Normal 134-146 [facility] Comment on above: Performed By: #### C KEVIN, CMP, , THYR #### [facility] ([id number]) [address] [place] [address] 16664 Urea nitrogen [Mass/Vol] 15 mg/dL Normal 5-27 [facility] Comment on above: Performed By: #### C BCA, CMP, , THYR #### [facility] ([id number]) [address] [place] [address] 37039 MAGNESIUMon 01-11-2024 Magnesium [Mass/Vol] 2.6 mg/dL Normal 1.8-2.6 [facility] Comment on above: Performed By: #### 1 [id number] #### [facility] ([id number]) [address] [place] [address] 31788 Magnesium [Mass/Vol] 1.8 mg/dL Normal 1.8-2.6 [facility] Comment on above: Performed By: #### C BCA, CMP, , THYR #### [facility] ([id number]) [address] [place] [address] [place] [address] THYROID PROFILEon 01-11-2024 Free T4 [Mass/Vol] 0.81 ng/dL Normal 0.61-1.60 [facility] Comment on above: Performed By: #### C BCA, CMP, , THYR #### [facility] ([id number]) [address] [place] [address] 13029 TSH 0.64 uIU/mL Normal 0.49-4.67 [facility] Comment on above: Performed By: #### C BCA, CMP, , THYR #### [facility] ([id number]) [address] [place] [address] 16250 BASIC METABOLIC PANLon 01-09 Anion gap [Moles/Vol] 7 mmol/L Normal 5-15 [facility] Comment on above: Performed By: #### B MP, LIVR, CBCA #### [facility] ([id number]) [address] [place] [address] 31426 Calcium [Mass/Vol] 8.3 mg/dL Low 8.5-10.5 [facility] Comment on above: Performed By: #### B MP, LIVR, CBCA #### [facility] ([id number]) [address] [place] [address] [place] [address] Chloride [Moles/Vol] 106 mmol/L Normal 98-109 [facility] Comment on above: Performed By: #### B MP, LIVR, CBCA #### [facility] ([id number]) [address] [place] [address] 22905 CO2 [Moles/Vol] 22 mmol/L Normal 22-32 [facility] Comment on above: Performed By: #### B MP, LIVR, CBCA #### [facility] ([id number]) [address] [place] [address] 28913 Creatinine [Mass/Vol] 0.90 mg/dL Normal 0.40-1.00 [facility] Comment on above: Result Comment: METH OD TRACEABLE TO IDMS STANDARD Performed By: #### B ANJUM LIVR, CBCA #### [facility] ([id number]) [address] [place] [address] 60625 GFR/1.73 sq M.predicted among non-blacks MDRD (S/P/Bld) [Vol rate/Area] 65 mL/min/{1.73_m2} Normal >59 [facility] Comment on above: Result Comment: Reported eGFR is based on the CKD-EPI 2020 equation that does not use a race coefficient. Performed By: #### B ANJUM, LIVR, CBCA #### [facility] ([id number]) [address] [place] [address] 03920 Glucose [Mass/Vol] 100 mg/dL High 65-99 [facility] Comment on above: Performed By: #### B ANJUM LIVR, CBCA #### [facility] ([id number]) [address] [place] [address] 43690 Potassium [Moles/Vol] 4.9 mmol/L Normal 3.5-5.0 [facility] Comment on above: Result Comment: SPEC IMEN HEMOLYZED, RESULTS INCREASED Performed By: #### B MP, LIVR, CBCA #### [facility] ([id number]) [address] [place] [address] 59267 Sodium [Moles/Vol] 135 mmol/L Normal 134-146 [facility] Comment on above: Performed By: #### B MP, LIVR, CBCA #### [facility] ([id number]) [address] [place] [address] 86082 Urea nitrogen [Mass/Vol] 19 mg/dL Normal 5-27 [facility] Comment on above: Performed By: #### B MP, LIVR, CBCA #### [facility] ([id number]) [address] [place] [address] 37613 CBC AND AUTO DIFFon 01-10-20 24 ABSOLUTE BASOPHIL 0.0 X10E9/L Normal 0.0-0.2 [facility] Comment on above: Performed By: #### B MP, LIVR, CBCA #### [facility] ([id number]) [address] [place] [address] 46553 ABSOLUTE NEUTROPHIL 5.2 X10E9/L Normal 1.5-6.6 [facility] Comment on above: Performed By: #### B MP, LIVR, CBCA #### [facility] ([id number]) [address] [place] [address] 25386 Basophils/100 WBC (Bld) 0.2 % Normal [facility] Comment on above: Performed By: #### B MP, LIVR, CBCA #### [facility] ([id number]) [address] [place] [address] 33135 Eosinophils (Bld) [#/Vol] 0.0 10*3/uL Normal 0.0-0.4 [facility] Comment on above: Performed By: #### B MP, LIVR, CBCA #### [facility] ([id number]) [address] [place] [address] 35378 Eosinophils/100 WBC (Bld) 0.2 % Normal [facility] Comment on above: Performed By: #### B MP, LIVR, CBCA #### [facility] ([id number]) [address] [place] [address] 29491 Erythrocyte distribution width (RBC) [Ratio] 13.2 % Normal 11.5-15.0 [facility] Comment on above: Performed By: #### B MP, LIVR, CBCA #### [facility] ([id number]) [address] [place] [address] 55314 Hematocrit (Bld) [Volume fraction] 36.7 % Normal 35-47 [facility] Comment on above: Performed By: #### B MP, LIVR, CBCA #### [facility] ([id number]) [address] [place] [address] 64384 Hemoglobin (Bld) [Mass/Vol] 12.5 g/dL Normal 11.7-15.5 [facility] Comment on above: Performed By: #### B MP, LIVR, CBCA #### [facility] ([id number]) [address] [place] [address] 97531 Lymphocytes (Bld) [#/Vol] 0.7 10*3/uL Low 1.0-3.5 [facility] Comment on above: Performed By: #### B MP, LIVR, CBCA #### [facility] ([id number]) [address] [place] [address] 49839 Lymphocytes/100 WBC (Bld) 9.9 % Normal [facility] Comment on above: Performed By: #### B MP, LIVR, CBCA #### [facility] ([id number]) [address] [place] [address] 84353 MCH (RBC) [Entitic mass] 31.4 pg Normal 27-34 [facility] Comment on above: Performed By: #### B MP, LIVR, CBCA #### [facility] ([id number]) [address] [place] [address] 10144 MCHC (RBC) [Mass/Vol] 34.0 g/dL Normal 32-36 [facility] Comment on above: Performed By: #### B MP, LIVR, CBCA #### [facility] ([id number]) [address] [place] [address] 63056 MCV (RBC) [Entitic vol] 92 fL Normal 80-100 [facility] Comment on above: Performed By: #### B MP, LIVR, CBCA #### [facility] ([id number]) [address] [place] [address] 28406 Monocytes (Bld) [#/Vol] 1.0 10*3/uL High 0-0.9 [facility] Comment on above: Performed By: #### B MP, LIVR, CBCA #### [facility] ([id number]) [address] [place] [address] 78147 Monocytes/100 WBC (Bld) 14.7 % Normal [facility] Comment on above: Performed By: #### B MP, LIVR, CBCA #### [facility] ([id number]) [address] [place] [address] 39783 Neutrophils/100 WBC (Bld) 75.0 % Normal [facility] Comment on above: Performed By: #### B MP, LIVR, CBCA #### [facility] ([id number]) [address] [place] [address] 35853 Platelet mean volume (Bld) [Entitic vol] 8.1 fL Normal 7-12 [facility] Comment on above: Performed By: #### B MP, LIVR, CBCA #### [facility] ([id number]) [address] [place] [address] 64762 Platelets (Bld) [#/Vol] 173 10*3/uL Normal 150-450 [facility] Comment on above: Performed By: #### B MP, LIVR, CBCA #### [facility] ([id number]) [address] [place] [address] 92318 RBC COUNT 3.97 X10E12/L Normal 3.80-5.20 [facility] Comment on above: Performed By: #### B MP, LIVR, CBCA #### [facility] ([id number]) [address] [place] [address] 09450 WBC (Bld) [#/Vol] 6.9 10*3/uL Normal 4.0-11.0 [facility] Comment on above: Performed By: #### B MP, LIVR, CBCA #### [facility] ([id number]) [address] [place] [address] 76937 LIVER PANELon 01-10-2024 Albumin [Mass/Vol] 3.9 g/dL Normal 3.2-5.3 [facility] Comment on above: Performed By: #### B MP, LIVR, CBCA #### [facility] ([id number]) [address] [place] [address] 73848 ALP [Catalytic activity/Vol] 47 U/L Normal 39-130 [facility] Comment on above: Performed By: #### B MP, LIVR, CBCA #### [facility] ([id number]) [address] [place] [address] 99235 ALT [Catalytic activity/Vol] 23 U/L Normal 0-31 [facility] Comment on above: Result Comment: SPEC IMEN HEMOLYZED, RESULTS INCREASED Performed By: #### B MP, LIVR, CBCA #### [facility] ([id number]) [address] [place] [address] 52670 AST [Catalytic activity/Vol] 44 U/L High 0-41 [facility] Comment on above: Result Comment: SPEC IMEN HEMOLYZED, RESULTS INCREASED Performed By: #### B MP, LIVR, CBCA #### [facility] ([id number]) [address] [place] [address] 38091 Bilirubin [Mass/Vol] 1.3 mg/dL High 0.3-1.2 [facility] Comment on above: Result Comment: RESU LTS QUESTIONABLE DUE TO HEMOLYSIS Performed By: #### B MP, LIVR, CBCA #### [facility] ([id number]) [address] [place] [address] 92096 Bilirubin.direct [Mass/Vol] 0.4 mg/dL Normal 0.0-0.4 [facility] Comment on above: Performed By: #### B MP, LIVR, CBCA #### [facility] ([id number]) [address] [place] [address] Protein [Mass/Vol] 7.0 g/dL Normal 6.0-8.0 [facility] Comment on above: Result Comment: SPEC IMEN HEMOLYZED, RESULTS INCREASED Performed By: #### B MP, LIVR, CBCA #### [facility] ([id number]) [address] [place] [address] Laboratory - Microbiology an d Antimicrobial susceptibilityon 01-10-2024 SARS-CoV-2 (COVID-19) RNA [facility]+probe Ql (Unsp spec) Positive [facility] No Panel Informationon 01-09 FLU A Negative [facility] FLU B Negative [facility] Interpretation and review of laboratory results Abnormal [facility] XR CHEST 1 VWon [...] Lockett MD on 01/10/2024 8:08 PM Normal [facility] Urinalysis macro (dipstick) panel (U)on 01-07-2024 Bilirubin, UA Negative Negative - 4(70) +++ mg/dL [facility] Blood, UA Negative Negative - 50 Dallin/mcL [facility] Clarity, [facility] Clear [facility] Light Yellow [facility] Glucose, UA Negative Negative - 1999(110) ++++ mg/dL [facility] Interpretation and review of laboratory results Normal [facility] Ketones, UA Negative Negative - 160(16) ++++ mg/dL [facility] Leukocytes, UA Negative Negative - 500+++ José/mcL [facility] Nitrite, UA Negative Negative - Positive [facility] pH, UA 6.0 5 - 9 [facility] WeOwe e Protein, UA Negative Negative - 1999(20) ++++ mg/dL [facility] Spec Grav, UA 1.010 1 - 1.03 [facility] Urobilinogen, UA 0.2 0.2 - 12 mg/dL [facility] Result: June 05, 2023 x-rays AP lateral and lateral flexion-extension views of the lumbar spine demonstrate severe scoliosis apex to the right at the thoracolumbar junction of nearly 90 degrees curvature in the coronal plane. There are no definitive fractures identified. Impression: Severe scoliosis Corwin Lui D.O. [facility] XR Lumbar spine 4 ViewsOrder ed By: Andrea Lui on 06-06-2023 [facility] [employer] Work Phone: XR Lumbar spine 4 [facility] Study observation (narrative) [facility] SCREENING MAMMOGRAM W/JORDAN, BILATERAL*on 04-10-2021 SCREENING MAMMOGRAM [...] VERY IMPORTANT TO YOUR HEALTH. THE CURRENT [employer] GUIDELINES RECOMMENDS ANNUAL MAMMOGRAPHY BEGINNING AT AGE 40 THIS FACILITY USES A REMINDER SYSTEM TO ENSURE ALL PATIENTS RECEIVE REMINDER NOTIFICATIONS AT THE APPROPRIATE TIME BASED ON THE RECOMMENDATIONS OF THIS EXAM. Report reported and signed by Filiberto Love on 04/10/2021 1211 Normal [facility] Battery Test Engineer Vital Signs Date Time Vital Sign Value Performing Clinician Farhad rodriguez 11-17-2024 10:17-0400 Body height 153.7 cm Lisandra Jimenez MD Work Phone: [facility] 11-17-2024 10:17-0400 Body mass index (BMI) [Ratio] 20.71 kg/m2 Lisandra Jimenez MD Work Phone: [facility] 11-17-2024 10:17-0400 Body weight 48.9 kg Lisandra Jimenez MD Work Phone: [facility] 11-17-2024 10:17-0400 Diastolic blood pressure 68 mm[Hg] Lisandra Jimenez MD Work Phone: [facility] 11-17-2024 10:17-0400 Heart rate 50 /min Lisandra Jimenez MD Work Phone: [facility] 11-17-2024 10:17-0400 Respiratory rate 18 /min Lisandra Jimenez MD Work Phone: [facility] 11-17-2024 10:17-0400 SaO2% (BldA) [Mass fraction] 97 % Lisandra Jimenez MD Work Phone: [facility] 11-17-2024 10:17-0400 Systolic blood pressure 122 mm[Hg] Lisandra Jimenez MD Work Phone: [facility] 10-16-2024 14:10-0400 Body height 153.7 cm Kathia Purvis SUPERVISOR ACCOUNTS RECEIVABLE Work Phone: [facility] 10-16-2024 14:10-0400 Body mass index (BMI) [Ratio] 20.71 kg/m2 Kathia Purvis SUPERVISOR ACCOUNTS RECEIVABLE Work Phone: [facility] 10-16-2024 14:10-0400 Body temperature 99.19 [degF] Katiha Purvis SUPERVISOR ACCOUNTS RECEIVABLE Work Phone: [facility] 10-16-2024 14:10-0400 Body weight 48.9 kg Kathia Purvis SUPERVISOR ACCOUNTS RECEIVABLE Work Phone: [facility] 10-16-2024 14:10-0400 Diastolic blood pressure 84 mm[Hg] Kathia Majors SUPERVISOR ACCOUNTS RECEIVABLE Work Phone: [facility] 10-16-2024 14:10-0400 Heart rate 96 /min Kathia Majors SUPERVISOR ACCOUNTS RECEIVABLE Work Phone: [facility] 10-16-2024 14:10-0400 SaO2% (BldA) [Mass fraction] 97 % Kathia Majors SUPERVISOR ACCOUNTS RECEIVABLE Work Phone: [facility] 10-16-2024 14:10-0400 Systolic blood pressure 118 mm[Hg] Kathia Majors SUPERVISOR ACCOUNTS RECEIVABLE Work Phone: [facility] 10-06-2024 16:05-0400 Body temperature 97.59 [degF] Kinjal Marcospatrick SUPERVISOR ACCOUNTS RECEIVABLE Work Phone: [facility] 10-06-2024 16:05-0400 Diastolic blood pressure 82 mm[Hg] Kinjal Urbano SUPERVISOR ACCOUNTS RECEIVABLE Work Phone: [facility] 10-06-2024 16:05-0400 Systolic blood pressure 126 mm[Hg] Kinjal Urbano SUPERVISOR ACCOUNTS RECEIVABLE Work Phone: [facility] 05-11-2024 15:02-0500 Body height 153.7 cm Lisandra Jimenez MD Work Phone: [facility] 05-11-2024 15:02-0500 Body mass index (BMI) [Ratio] 21.36 kg/m2 Lisandra Jimenez MD Work Phone: [facility] 05-11-2024 15:02-0500 Body weight 50.44 kg Lisandra Jimenez MD Work Phone: [facility] 05-11-2024 15:02-0500 Diastolic blood pressure 64 mm[Hg] Lisandra Jimenez MD Work Phone: [facility] 05-11-2024 15:02-0500 Heart rate 65 /min Lisandra Jimenez MD Work Phone: [facility] 05-11-2024 15:02-0500 Respiratory rate 18 /min Lisandra Jimenez MD Work Phone: [facility] 05-11-2024 15:02-0500 SaO2% (BldA) [Mass fraction] 99 % Lisandra Jimenez MD Work Phone: [facility] 05-11-2024 15:02-0500 Systolic blood pressure 112 mm[Hg] Lisandra Jimenez MD Work Phone: [facility] 02-03-2024 09:06-0400 Body height 153.7 cm Lisandra Jimenez MD Work Phone: [facility] 02-03-2024 09:06-0400 Body mass index (BMI) [Ratio] 21.32 kg/m2 Lisandra Jimenez MD Work Phone: [facility] 02-03-2024 09:06-0400 Body weight 50.35 kg Lisandra Jimenez MD Work Phone: [facility] 02-03-2024 09:06-0400 Heart rate 83 /min Lisandra Jimenez MD Work Phone: [facility] 02-03-2024 09:06-0400 SaO2% (BldA) [Mass fraction] 94 % Lisandra Jimenez MD Work Phone: [facility] 01-10-2024 16:07-0400 Body height 154.9 cm Diana Gomez MD Work Phone: [facility] 01-10-2024 16:07-0400 Body temperature 98.8 [degF] Diana Gomez MD Work Phone: [facility] 01-10-2024 16:07-0400 Diastolic blood pressure 78 mm[Hg] Diana Gomez MD Work Phone: [facility] 01-10-2024 16:07-0400 Heart rate 122 /min Diana Gomez MD Work Phone: [facility] 01-10-2024 16:07-0400 SaO2% (BldA) [Mass fraction] 93 % Diana Gomez MD Work Phone: [facility] 01-10-2024 16:07-0400 Systolic blood pressure 122 mm[Hg] Diana Gomez MD Work Phone: [facility] 01-07-2024 13:02-0400 Body height 154.9 cm Lisandra Jimenez MD Work Phone: [facility] 01-07-2024 13:02-0400 Body mass index (BMI) [Ratio] 21.54 kg/m2 Lisandra Jimenez MD Work Phone: [facility] 01-07-2024 13:02-0400 Body weight 51.71 kg Lisandra Jimenez MD Work Phone: [facility] 01-07-2024 13:02-0400 Diastolic blood pressure 78 mm[Hg] Lisandra Jimenez MD Work Phone: [facility] 01-07-2024 13:02-0400 Heart rate 65 /min Lisandra Jimenez MD Work Phone: [facility] 01-07-2024 13:02-0400 Respiratory rate 18 /min Lisandra Jimenez MD Work Phone: [facility] 01-07-2024 13:02-0400 SaO2% (BldA) [Mass fraction] 97 % Lisandra Jimenez MD Work Phone: [facility] 01-07-2024 13:02-0400 Systolic blood pressure 122 mm[Hg] Lisandra Jimenez MD Work Phone: [facility] 06-10-2023 10:05-0500 Body height 154.9 cm Lisandra Jimenez MD Work Phone: [facility] 06-10-2023 10:05-0500 Body mass index (BMI) [Ratio] 20.6 kg/m2 Lisandra Jimenez MD Work Phone: [facility] 06-10-2023 10:05-0500 Body weight 49.44 kg Lisandra Jimenez MD Work Phone: [facility] 06-10-2023 10:05-0500 Diastolic blood pressure 68 mm[Hg] Lisandra Jimenez MD Work Phone: [facility] 06-10-2023 10:05-0500 Heart rate 76 /min Lisandra Jimenez MD Work Phone: [facility] 06-10-2023 10:05-0500 Respiratory rate 16 /min Lisandra Jimenez MD Work Phone: [facility] 06-10-2023 10:05-0500 Systolic blood pressure 130 mm[Hg] Lisandra Jimenez MD Work Phone: [facility] Encounters Encounter Date Encounter Type Care Provider Facility Start: 11-17-2024 End: 11-17-2024 Bamboo flowsheet Lisandra Jimenez MD Work Phone: [facility] Start: 11-17-2024 End: 11-17-2024 Bamboo flowsheet Lisandra Jimenez MD Work Phone: [facility] Start: 11-17-2024 End: 11-17-2024 ambulatory LISANDRA JIMENEZ Not Available Start: 11-17-2024 End: 11-17-2024 Office outpatient visit 15 minutes Lisandra Jimenez MD Work Phone: [facility] Comment on above: Atrophic vaginitis ( Primary Dx); Dysuria Start: 11-16-2024 End: 11-16-2024 Telephone encounter Lisandra Jimenez MD Work Phone: [facility] Start: 11-06-2024 End: 11-06-2024 ambulatory KINJAL KNOWLESZPATRICK Not Available Start: 11-06-2024 End: 11-06-2024 Telephone encounter Lisandra Jimenez MD Work Phone: [facility] Comment on above: Acute cystitis with hematuria (Primary Dx) Start: 10-16-2024 End: 10-16-2024 Patient encounter procedure Kathia Purvis NP Work Phone: [facility] Comment on above: Medicare annual well ness visit, subsequent (Primary Dx); Routine general medical examination at a health care facility; Age-related osteoporosis without current pathological fracture ; Gastroesophageal reflux disease without esophagitis; Primary osteoarthritis of left hip; Iron deficiency anemia, unspecified iron deficiency anemia type; Neoplasm of unspecified behavior of bone, soft tissue, and skin Start: 10-16-2024 End: 10-16-2024 Patient encounter status Kathiabrady Loomisanastasia SUPERVISOR ACCOUNTS RECEIVABLE Work Phone: [facility] Start: 10-16-2024 End: 10-16-2024 Bamboo flowsheet Kathiabrady Loomisanastasia SUPERVISOR ACCOUNTS RECEIVABLE Work Phone: [facility] Start: 10-16-2024 End: 10-16-2024 Bamboo flowsheet Kathiabrady Loomisanastasia SUPERVISOR ACCOUNTS RECEIVABLE Work Phone: [facility] Start: 10-16-2024 End: 10-16-2024 ambulatory KATHIA MIGUELINAAnastasia Not Available Start: 10-08-2024 End: 10-08-2024 Follow-up encounter Kinjal Urbano SUPERVISOR ACCOUNTS RECEIVABLE Work Phone: [facility] Start: 10-06-2024 End: 10-06-2024 ambulatory KINJAL URBANO Not Available Start: 10-06-2024 End: 10-06-2024 Office outpatient visit 25 minutes Kinjal Urbano SUPERVISOR ACCOUNTS RECEIVABLE Work Phone: [facility] Comment on above: Dysuria (Primary Dx) ; Acute cystitis with hematuria Start: 08-31-2024 End: 08-31-2024 ambulatory [facility] Start: 08-10-2024 End: 08-10-2024 ambulatory Mere Woodard MD Facility: [facility] Start: 05-15-2024 End: 05-15-2024 ambulatory LISANDRA JIMENEZ [...] 03-30-2024 End: 03-30-2024 ambulatory Mere Woodard MD Facility:[facility] Start: 03-23-2024 End: 03-23-2024 ambulatory Mere Woodard MD Facility:[facility] Start: 03-03-2024 End: 03-03-2024 Refill Lisandra Jimenez MD Work Phone: [facility] Comment on above: Gastroesophageal ref lux disease without esophagitis; Mixed stress and urge urinary incontinence; Tachycardia; Age-related osteoporosis without current pathological fracture ([facility] Start: 02-03-2024 End: 02-03-2024 Bamboo flowsheet Lisandra [...] 01-13-2024 Emergency department patient visit SERGIO JARVIS [facility] Start: 01-10-2024 End: 01-12-2024 ambulatory LISANDRA JIMENEZ [facility] Start: 01-10-2024 End: 01-10-2024 ambulatory DIANA GOMEZ [...] type Start: 01-07-2024 End: 01-07-2024 ambulatory LISANDRA Varghese MONACOER Not Available Start: 12-12-2023 End: 12-12-2023 [...] ambulatory YANETH J LEIA Not Available Start: 08-02-2023 Telephone encounter Maya Villalobos RN [facility] Comment on above: Records, transfer to [facility] Start: 06-11-2023 Refill Lisandra Price Work Phone: [facility] Start: 06-10-2023 Bamboo flowsheet Lisandra Jimenez MD Work Phone: [facility] Start: 06-10-2023 Bamboo flowsheet Lisandra Jimenez MD Work Phone: [facility] Start: 06-10-2023 End: 06-10-2023 Patient encounter procedure Lisandra Jimenez MD Work Phone: [facility] Comment on above: Routine general medi vicente examination at a health care facility (Primary Dx); Gastroesophageal reflux disease without esophagitis; Arthritis, lumbar spine; Primary osteoarthritis of left hip; Postoperative anemia due to acute blood loss; Age-related osteoporosis without current pathological fracture ([facility]) Start: 06-10-2023 End: 06-10-2023 Patient encounter status Lisandra Jimenez MD Work Phone: [facility] Work Phone: Start: 06-06-2023 Refill Loli Yang [facility] Comment on above: Postnasal discharge Start: 06-05-2023 End: 06-05-2023 Office outpatient visit 15 minutes Linda Robins SUPERVISOR ACCOUNTS RECEIVABLE Work Phone: [facility] Comment on above: S/P total left hip a rthroplasty (Primary Dx); Low back pain without sciatica, unspecified back pain laterality, unspecified chronicity; DDD (degenerative disc disease), lumbar; Scoliosis of thoracolumbar spine, unspecified scoliosis type Procedures Date Procedure Procedure Detail Performing Clinician Start: 11-17-2024 Urnls dip stick/tabl et rgnt non-auto w/o micrscp Lisandra Jimenez MD Work Phone: Start: 10-06-2024 Urnls dip stick/tabl et rgnt non-auto w/o micrscp Kinjal Urbano SUPERVISOR ACCOUNTS RECEIVABLE Work Phone: Start: 01-10-2024 STATUS COVID-19/FLU Jayne Gomez MD Work Phone: Start: 01-07-2024 Urnls dip stick/tabl et rgnt non-auto w/o micrscp Lisandra Jimenez MD Work Phone: Start: 06-05-2023 Radex spine lumbosac ral minimum 4 views Linda Robins SUPERVISOR ACCOUNTS RECEIVABLE Work Phone: Plan of Treatment Date Care Activity Detail Author Start: 10-16-2025 Medicare Annual Wellness (AWV) Medicare Annual Wellness (AWV) [facility] Start: 02-17-2025 End: 02-17-2025 Patient encounter procedure 02/17/2025 9:40 AM EDT Office Visit [facility] [address] [facility] [place] [phone] Lisandra Jimenez MD [address] [place] [address] [facility] Start: 12-28-2024 Influenza vaccination Influenza Vacc ine (#1) [facility] Start: 11-17-2024 End: 11-17-2025 Bacteria identified in Urine by Culture Urine culture (clean catch) Microbiology Routine Dysuria Expected: 11/17/2024 (Approximate), Expires: 11/17/2025 [facility] Work Phone: Comment on above: Expected: 11/17/2024 (Approximate), Expires: 11/17/2025 Start: 11-17-2024 End: 11-17-2025 Urinalysis complete panel - Urine Urinalysis with reflex microscopic (clean catch) Lab Routine Dysuria Expected: 11/17/2024 (Approximate), Expires: 11/17/2025 [facility] Comment on above: Expected: 11/17/2024 (Approximate), Expires: 11/17/2025 Start: 11-06-2024 End: 11-06-2024 Clinical Support 11/06/2024 4:00 PM EDT Clinical Support [facility] [address] [place] [phone] Dysuria (Primary Dx) [facility] Comment on above: Dysuria (Primary Dx) Start: 10-16-2024 End: 10-16-2024 Patient encounter procedure 10/16/2024 2:30 PM EDT Office Visit [facility] [address] [place] [phone] Kathia Purvis NP [address] [place], [place] [id number] Arrived [facility] Comment on above: Arrived Start: 10-16-2024 End: 10-16-2025 25-hydroxyvitamin D3 [Mass/volume] in Serum or Plasma Vitamin D 25 hydroxy Lab Routine Age-related osteoporosis without current pathological fracture Expected: 10/16/2024 (Approximate), Expires: 10/16/2025 [facility] Comment on above: Expected: 10/16/2024 (Approximate), Expires: 10/16/2025 Start: 10-16-2024 End: 10-16-2025 CBC W Auto Differential panel - Blood CBC and differential Lab Routine Routine general medical examination at a health care facility Gastroesophageal reflux disease without esophagitis Iron deficiency anemia, unspecified iron deficiency anemia type Expected: 10/16/2024 (Approximate), Expires: 10/16/2025 [facility] Work Phone: Comment on above: Expected: 10/16/2024 (Approximate), Expires: 10/16/2025 Start: 10-16-2024 End: 10-16-2025 Comprehensive metabolic 2000 panel - Serum or Plasma Comprehensive metabolic panel Lab Routine Routine general medical examination at a health care facility Gastroesophageal reflux disease without esophagitis Expected: 10/16/2024 (Approximate), Expires: 10/16/2025 [facility] Comment on above: Expected: 10/16/2024 (Approximate), Expires: 10/16/2025 Start: 06-10-2024 Medicare Annual Wellness (AWV) Medicare Annual Wellness (AWV) [facility] Start: 05-15-2024 End: 05-15-2024 Professional / ancillary services management 05/15/2024 10:00 AM EST Ancillary Procedure [facility] [address] [place] [place] [address] [place] [phone] [facility] Start: 05-11-2024 End: 05-11-2024 [...] EDT Office Visit [facility] [address] [facility] [place] [phone] Lisandra Jimenez MD [address] [place], [place] [phone] Arrived [facility] Comment on above: Arrived Start: 01-02-2024 Adult BMI Screening Adult BMI Screen ing [facility] Start: 12-29-2023 Influenza vaccination [facility] Start: 12-29-2023 Tobacco Screening Tobacco Screening [facility] Start: 12-09-2023 End: 12-09-2023 Patient encounter procedure 12/09/2023 9:40 AM EDT Office Visit [facility] [address] [facility] [place] [phone] Lisandra Jimenez MD [address] [place], [place] [phone] [facility] Start: 08-01-2023 Medicare Annual Wellness (AWV) Medicare Annual Wellness (AWV) [facility] Start: 07-30-2023 End: 07-30-2023 Patient encounter procedure 07/30/2023 9:00 AM EDT Office Visit [facility] [address] [place] [address] Lisandra Jimenez MD [address] [place] [address] [facility] Start: 07-01-2023 End: 07-01-2023 Patient encounter procedure 07/01/2023 9:00 AM EST Office Visit [facility] [address] [place] [address] Linda Robins SUPERVISOR ACCOUNTS RECEIVABLE [address] [place] [address] [facility] Start: 06-26-2023 End: 06-26-2023 Patient encounter procedure 06/26/2023 10:00 AM EST Office Visit [facility] [address] [place] [address] Linda Robins NP [address] [place] [address] [facility] Start: 06-10-2023 End: 06-10-2023 Patient encounter procedure [facility] Comment on above: Arrived Start: 02-10-2023 DTaP,Tdap and Td Vaccines (3 - Td or Tdap) DTaP,Tdap and Td Vaccines (3 - Td or Tdap) [facility] Start: 12-28-2022 COVID-19 Vaccine ( season) COVID-19 Vaccine ( season) [facility] Start: 2010 Fall Risk Screening Fall Risk Screen ing [facility] [employer] [facility] [employer] [facility] Start: 1957 Depression Screening Depression Scre ening [facility] Start: 1945 Medicare Annual Wellness Visit Medicare Annual Wellness Visit [facility] Bacteria identified in Urine by Culture Urine culture Microbiology Routine Dysuria Ordered: 10/06/2024 [facility] Work Phone: Comment on above: Ordered: 10/06/2024 Immunizations Immunization Date Immunization Notes Care Provider Armen alvarez 02-03-2024 influenza, high dose seasonal, preservative-free Lisandra Jimenez MD Work Phone: [facility] 02-03-2024 influenza virus vacc ine, unspecified formulation Lisandra Jimenez MD Work Phone: [facility] 04-08-2023 RSV, recombinant, protein subunit RSVpreF, adjuvant reconstitu, 120mcg/0.5mL, PF (Arexvy) Lisandra Jimenez MD Work Phone: [facility] 01-28-2023 Influenza, High-dose Seasonal, Quadrivalent, Preservative Free Loli Rivera SUPERVISOR ACCOUNTS RECEIVABLE Work Phone: [facility] Work Phone: 01-28-2023 influenza virus vacc ine, unspecified formulation Lisandra Jimenez MD Work Phone: [facility] 02-06-2022 Influenza, High-dose Seasonal, Quadrivalent, Preservative Free Loli Rivera SUPERVISOR ACCOUNTS RECEIVABLE Work Phone: [facility] 02-06-2022 Moderna Bivalent Price ster Vaccination Loli Rivera SUPERVISOR ACCOUNTS RECEIVABLE Work Phone: [facility] 02-06-2022 Moderna SARS-CoV-2 50mcg/0.5mL Booster Loli Rivera SUPERVISOR ACCOUNTS RECEIVABLE Work Phone: [facility] 02-06-2022 influenza virus vacc ine, unspecified formulation Maya Villalobos RN [facility] 01-26-2021 Influenza, High-dose Seasonal, Quadrivalent, Preservative Free Loli Rivera SUPERVISOR ACCOUNTS RECEIVABLE Work Phone: [facility] 01-27-2020 Influenza, High-dose Seasonal, Quadrivalent, Preservative Free Loli Rivera SUPERVISOR ACCOUNTS RECEIVABLE Work Phone: [facility] 03-12-2019 zoster vaccine recombinant Loli Rivera SUPERVISOR ACCOUNTS RECEIVABLE Work Phone: [facility] 01-26-2019 zoster vaccine, live Loli W olf SUPERVISOR ACCOUNTS RECEIVABLE Work Phone: [facility] 01-22-2019 influenza, high dose seasonal, preservative-free Loli Rivera SUPERVISOR ACCOUNTS RECEIVABLE Work Phone: [facility] 01-22-2019 Influenza, High-dose Seasonal, Quadrivalent, Preservative Free Loli Rivera SUPERVISOR ACCOUNTS RECEIVABLE Work Phone: [facility] 01-22-2019 zoster vaccine recombinant Loli Rivera SUPERVISOR ACCOUNTS RECEIVABLE Work Phone: [facility] 01-20-2018 influenza, high dose seasonal, preservative-free Loli Rivera SUPERVISOR ACCOUNTS RECEIVABLE Work Phone: [facility] 01-20-2018 influenza, injectabl e, quadrivalent, preservative free Loli Rivera SUPERVISOR ACCOUNTS RECEIVABLE Work Phone: [facility] 01-18-2017 influenza, high dose seasonal, preservative-free Loli Rivera SUPERVISOR ACCOUNTS RECEIVABLE Work Phone: [facility] 01-18-2017 Influenza, High-dose Seasonal, Quadrivalent, Preservative Free Loli Rivera SUPERVISOR ACCOUNTS RECEIVABLE Work Phone: [facility] 01-17-2016 influenza, high dose seasonal, preservative-free Loli Rivera SUPERVISOR ACCOUNTS RECEIVABLE Work Phone: [facility] 01-17-2016 pneumococcal conjuga te vaccine, 13 valent Loli Rivera SUPERVISOR ACCOUNTS RECEIVABLE Work Phone: [facility] 01-12-2015 influenza, high dose seasonal, preservative-free Loli Rivera SUPERVISOR ACCOUNTS RECEIVABLE Work Phone: [facility] 01-11-2014 influenza, high dose seasonal, preservative-free Loli Rivera SUPERVISOR ACCOUNTS RECEIVABLE Work Phone: [facility] 02-10-2013 tetanus and diphther ia toxoids, adsorbed, preservative free, for adult use (5 Lf of tetanus toxoid and 2 Lf of diphtheria toxoid) Loli Rivera SUPERVISOR ACCOUNTS RECEIVABLE Work Phone: [facility] 02-10-2013 tetanus toxoid, redu jessica diphtheria toxoid, and acellular pertussis vaccine, adsorbed Loli Rivera SUPERVISOR ACCOUNTS RECEIVABLE Work Phone: [facility] 02-06-2013 seasonal influenza, intradermal, preservative free Loli Rivera SUPERVISOR ACCOUNTS RECEIVABLE Work Phone: [facility] 12-23-2012 zoster vaccine, live Loli W olf SUPERVISOR ACCOUNTS RECEIVABLE Work Phone: [facility] 12-12-2012 pneumococcal polysaccharide vaccine, 23 valent Loli Rivera SUPERVISOR ACCOUNTS RECEIVABLE Work Phone: [facility] 02-06-2012 influenza, seasonal, injectable, preservative free Loli Rivera SUPERVISOR ACCOUNTS RECEIVABLE Work Phone: [facility] 04-17-2004 influenza, seasonal, injectable Loli Rivera SUPERVISOR ACCOUNTS RECEIVABLE Work Phone: [facility] 04-27-2003 influenza, seasonal, injectable Loli Rivera SUPERVISOR ACCOUNTS RECEIVABLE Work Phone: [facility] 04-27-2002 influenza, seasonal, injectable Loli Rivera SUPERVISOR ACCOUNTS RECEIVABLE Work Phone: [facility] 04-01-2001 influenza, seasonal, injectable Loli Rivera SUPERVISOR ACCOUNTS RECEIVABLE Work Phone: [facility] 03-08-1999 pneumococcal polysaccharide vaccine, 23 valent Loli Rivera SUPERVISOR ACCOUNTS RECEIVABLE Work Phone: [facility] Payers Date Payer Category Payer Private Health Insurance 2021 Medicaid [employer] MED[employer]ARE A DVANTAGE [id number] 2021 Medicare [id number] 2021 Medicare [id number] 1945 Unknown [id number] 2.16.840.1.787081.3.579.2. 1286 1945 Unknown [id number] 2.16.840.1.535121.3.579.2. 1286 1945 Unknown [id number] 2.16.840.1.500231.3.579.2. 196 1945 Unknown [id number] 2.16.840.1.357156.3.579.2. 1945 Unknown [id number] 2.16.840.1.997231.3.579.2. 1945 Unknown [id number] 2.16.840.1.682946.3.579.2. 1945 Unknown [id number] 2.16.840.1.077385.3.579.2. 1258 1945 Unknown [id number] 2.16.840.1.627657.3.579.2. 1258 1945 Unknown [id number] 2.16.840.1.434735.3.579.2. 1258 1945 Unknown [id number] 2..840.1.948996.3.579.2. 1258 1945 Unknown [id number] 2.16.840.1.345803.3.579.2. 1258 1945 Unknown [id number] 2.16.840.1.000298.3.579.2. 1258 1945 Unknown [id number] 2.16.840.1.841492.3.579.2. 1258 1945 Unknown [id number] 2.16.840.1.012763.3.579.2. 1258 1945 Unknown [id number] 2.16.840.1.368533.3.579.2. 1258 1945 Unknown [id number] 2.16.840.1.293106.3.579.2. 1258 1945 Unknown [id number] 2.16.840.1.336339.3.579.2. 125 1945 Unknown [id number] 2.16.840.1.869700.3.579.2. 1259 1945 Unknown [id number] 2.16.840.1.021324.3.579.2. 1259 1945 Unknown [id number] 2.16.840.1.527405.3.579.2. 1259 1945 Unknown [id number] 2.16.840.1.074836.3.579.2. 9 1945 Unknown [id number] 2.16.840.1.317234.3.579.2. 1259 Social History Date Type Detail Facility Start: 05-24-2022 End: 10-10-2022 Tobacco smoking status WAIS Never smoked tobacco [facility] Start: 05-24-2022 End: 10-10-2022 Tobacco use and exposure Smokeless tobacco non-user [facility] Start: 06-05-2023 End: 11-17-2024 Alcohol intake Lifetime non-drinker (finding) [facility] Start: 12-10-2022 End: 10-16-2024 History of Social function [facility] Start: 12-10-2022 End: 10-16-2024 Humiliation, Afraid, Rape, and Kick questionnaire [HARK] [facility] Within the last year , have you been afraid of your partner or ex-partner? No [facility] Attends Taoist Services Not on file [facility] Do you belong to any clubs or organizations such as sabianism groups, unions, fraternal or athletic groups, or [...] Alcohol intake Current non-drinker of alcohol (finding) [facility] Medical Equipment Procedure Code Equipment Code Equipment Origin al Text Equipment Identifier Dates Lens Iol Ultrase rt 11.5d - [id number] - [id number] Start: 04-03-2018 Lens Iol Ultrase rt 13.0d - [id number] - [id number] Start: 08-28-2018 Head Fem 32mm 0m m Vrsy Cocr Hip Rpl [id number] - [id number] - [id number], [id number] FDA Start: 12-26-2022 Screw Bn 15mm 6. [address]mm [address] Hip Actb Trlg Strl Rpl [id number] - [id number] - [id number] Start: 12-26-2022 Goals Date Patient Goal Desired Activity /State Personal health goal Comment on above: Formatting of this n ote might be different from the original. Evaluation of progress towards goal: Home with support from friend (staying with pt) and [facility] Ortho PT 360 Functional Status Date Assessment Result Facility 10-16-2024 Patient Health Quest ionnaire 2 item (PHQ-2) [Reported] [facility] Clinical Notes 06-05-2023 to 11-17-2024 Lisandra Jimenez MD - 11/17/2024 10:00 AM EDTTelephone Encounter - Lodema Rabia - 11/16/2024 1:13 PM EDTTelephone Encounter - Lodema Rabia - 11/16/2024 1:13 PM EDT Note Date & Type Note Facility 11-17-2024 History of Present illness Narrative Images from the original note were not included. Subjective Patient ID: Marck Maria is a 79 y.o. female who presents for Urinary Problem (Burning with urination, negative culture.). HPI History of Present Illness The patient presents for evaluation of urinary issues and hip pain. She reports experiencing painful urination, described as a stinging sensation. There is no frequent urination at night, and bowel movements are regular and solid. She has not undergone a hysterectomy. A vaginal cream previously used for itching was beneficial, although it has been a while since she last used it. She mentions that her skin tends to be dry, leading her to apply lotion regularly. Regarding her hip pain, she manages it with Tylenol Arthritis. She underwent a left hip replacement three years ago, which has limited her mobility. She expresses fear of falling due to her current hip pain and is considering whether to consult a surgeon about her other hip. PAST SURGICAL HISTORY: Left hip replacement: 10/2021 Objective BP 122/68 (BP Location: Left arm, Patient Position: Sitting, BP Cuff Size: Adult) Pulse 50 Resp 18 Ht 5' 0.5 Wt 107 lb 12.8 oz SpO2 97% BMI 20.71 kg/m Physical Exam Constitutional: Appearance: Normal appearance. She [...] Content: Thought content normal. Judgment: Judgment normal. Physical Exam Genitourinary: External genitalia with atrophy but no erythema or lesions or discharge Assessment & Plan Dysuria Orders: POCT Urinalysis dipstick Urine culture (clean catch); Future Urinalysis with reflex microscopic (clean catch); Future Atrophic vaginitis Orders: estradiol (Estrace) 0.1 MG/GM vaginal cream; Apply peasized amount to vagina nightly for 1 week then every Saturday/Saturday/Saturday. Assessment & Plan 1. Urinary discomfort. - Urine sample does not indicate a bladder infection, suggesting the stinging sensation may be due to other factors such as a rash or tissue irritation. - Physical examination of the area shows healthy tissues. - Vaginal cream estrogen prescribed for application 3 times a week, regardless of symptoms, to prevent potential irritation. It may take about a month to notice a difference. - If the discomofrt persists, she should come in for a urine check to rule out any infection. 2. Hip pain. - Likely has some hip arthritis. - Physical activity is limited due to hip pain. - Advised to continue taking Tylenol for pain management. - If the pain becomes limiting, she may consider seeing a surgeon for further evaluation. Follow-up: A follow-up appointment is scheduled for 3 months from now. documented in this encounter [facility] 11-16-2024 Telephone encounter Note Vm was left: Stephane, my name is Teresa Hadley. I am calling for Marck Maria birthday [birth year]. She has been in to you a few times recently and she just finished her antibiotic a few days ago and she is still having some burning. Um, so I just wanted to relay that message to Dr Jimenez. Um, you can give her a call back [phone], thanks. [facility] 11-16-2024 Miscellaneous Notes Vm was left: Ga, my name is Teresa Hadley. I am calling for Marck Maria birthday [birth year]. She has been in to you a few times recently and she just finished her antibiotic a few days ago and she is still having some burning. Um, so I just wanted to relay that message to Dr Jimneez. Um, you can give her a call back [phone], thanks. documented in this encounter [facility] 11-06-2024 Telephone encounter Note Hi, I am calling for Tr Maria. She was just in had some problems with ta UTI They prescribed an antibiotic and she is still having trouble today So I think it is coming back. If you could call back to her house number [phone], we would appreciate it. Thank you. [facility] 11-06-2024 Miscellaneous Notes Hi, I am calling for Tr Maria. She was just in had some problems with ta UTI They prescribed an antibiotic and she is still having trouble today So I think it is coming back. If you could call back to her house number [phone], we would appreciate it. Thank you. documented in this encounter [facility] 10-16-2024 History of Present illness Narrative Images from the original note were not included. Marck Maria is a 79 y.o. female presents with chief complaint of Medicare Annual Wellness Visit Subsequent and Dry skin (Face, dry patches) HPI: History of Present Illness The patient presents for a Medicare wellness visit and evaluation of a facial rash. She has been observing a rash on her face for several months, which she reports as not being painful or increasing in size. The rash is described as rough and dry, with a moncada coloration. She does not use any lotions on the affected area. Her friend noticed the rash and suggested that she seek medical attention. She has discontinued her Fosamax medication. She is currently taking vavm-[id number] iron supplements for iron deficiency anemia. She maintains regular annual appointments with her digital product manager and dentist. She is not seeing orthopedics like before for her arthritis. FAMILY HISTORY Her father was thin. HPI Over the past 2 weeks, how [...] Falling, Immediate or Within 3 Months: Yes (fell in about june/july) Health Risk Assessment Form Do you need help eating, bathing, using the toilet, dressing, or getting around your home?: No Can you prepare your own meals?: Yes Can you do your own housework without help?: No Can you shop for groceries or clothes without help?: Yes Do you exercise for about 20 minutes 3 or more days a week?: Yes (does [employer] sne[employer] class) How confident are you that you can control and manage most of your health problems?: Very confident Can you mange your money, credit cards and accounts, pay bills and taxes?: Yes Cognitive Screening Three Word Registration: Leader, Season, Table Clock Drawing: Normal Clock - 2 Three Word Recall: 2/3 words correct - 2 Total Score (0-5 Points): 4 SUBJECTIVE: MEDICATIONS: Current Outpatient Medications Medication Instructions [...] daily PRN celecoxib (CeleBREX) 200 MG capsule cephalexin (KEFLEX) 500 mg, Oral, 2 times daily docusate sodium (COLACE) 100 mg, 2 times [...] OF SYMPTOMS: Review of Systems Constitutional: Negative. HENT: Negative. Respiratory: Negative. Cardiovascular: Negative. Gastrointestinal: Negative. Genitourinary: Negative. Musculoskeletal: Negative. Skin: Positive for rash. Neurological: Negative. Psychiatric/Behavioral: Negative. OBJECTIVE: Visit Vitals BP 118/84 Pulse 96 Temp 99.2 F (Tympanic) Ht 5' 0.5 Wt 107 lb 12.8 oz SpO2 97% BMI 20.71 kg/m Smoking Status Never BSA 1.44 m Physical Exam Vitals and nursing note reviewed. Constitutional: Appearance: Normal appearance. HENT: Head: Normocephalic and atraumatic. Comments: 2.5cm x 2.5cm, moncada colored, dry lesion noted to left side of face, mandible region. Looks like a liver spot. Nose: Nose normal. Mouth/Throat: Mouth: Mucous membranes are moist. Cardiovascular: Rate and Rhythm: Normal rate and regular rhythm. Pulses: Normal pulses. Heart sounds: Normal heart sounds. Pulmonary: Effort: Pulmonary effort is normal. Breath sounds: Normal breath sounds. Abdominal: General: Bowel sounds are normal. There is no distension. Palpations: Abdomen is soft. There is no mass. Tenderness: There is no abdominal tenderness. Hernia: No hernia is present. Musculoskeletal: Right lower leg: No edema. Left lower leg: No edema. Skin: General: Skin is warm and dry. Neurological: General: No focal deficit present. Mental Status: She is alert and oriented to person, place, and time. Psychiatric: Mood and Affect: Mood normal. Behavior: Behavior normal. ASSESSMENT AND PLAN: Assessment/Plan Problem List Items Addressed This Visit Age-related osteoporosis without current pathological fracture Relevant Orders Vitamin D 25 hydroxy; Future Off of Fosamax, last DEXA scan was 04/2024 Osteoarthritis of left hip Stable GERD (gastroesophageal reflux disease) Relevant Orders CBC and differential; Future Comprehensive metabolic panel; Future Other Visit Diagnoses Medicare annual wellness visit, subsequent - Primary Healthy diet and keep active. Annual eye and dental exam. Vaccines and cancer screens reviewed for completeness. Screen labs as needed. Assessed needs for tools in the home for independence. Living will and durable power of collections attorney reviewed Routine general medical examination at a health care facility Relevant Orders CBC and differential; Future Comprehensive metabolic panel; Future Healthy diet and keep active. Annual eye and dental exam. screen labs, cancer screens and vaccines reviewed an updated as needed. Iron deficiency anemia, unspecified iron deficiency anemia type Relevant Orders CBC and differential; Future On Iron daily Neoplasm of unspecified behavior of bone, soft tissue, and skin Relevant Orders Ambulatory referral to Dermatology; Future Assessment & Plan 1. Facial rash. - The rash has been present for a couple of months, is not painful, and appears as a dark brown, rough patch. - It may be a liver spot or sunspot. - A referral to dermatology will be made for further evaluation. - If no contact is made within a week, she should call the office. 2. Medicare wellness visit. - Cognitive screening results were satisfactory, with only one word missed. - Last DEXA scan in April showed stable results. - She has been on Fosamax and has taken a break from it; will restart Fosamax in a year. - Blood work will be conducted today to check various health parameters. Follow-up - The patient will follow up in 1 year for her wellness visit or sooner if needed. documented in this encounter [facility] 10-08-2024 Telephone encounter Note Patient calling back- symptoms have improved and she is doing better. She started the antibiotic yesterday. [facility] 10-08-2024 Miscellaneous Notes Patient calling back- symptoms have improved and she is doing better. She started the antibiotic yesterday. Ask patient if her symptoms have improved documented in this encounter [facility] 10-08-2024 Progress note Formatting of t his note might be different from the original. Ask patient if her symptoms have improved [facility] 10-06-2024 History of Present illness Narrative Images from the original note were not included. Marck Maria is a 79 y.o. female presents with chief complaint of UTI HPI: HPI Patient is present with c/o dysuria that has been ongoing for a couple of weeks. SUBJECTIVE: MEDICATIONS: Current Outpatient Medications Medication Instructions [...] today. REVIEW OF SYMPTOMS: Review of Systems Constitutional: Negative for chills and fatigue. HENT: Negative for ear discharge, ear pain, rhinorrhea and sore throat. Eyes: Negative for pain and redness. Respiratory: Negative for cough and chest tightness. Cardiovascular: Negative for chest pain and palpitations. Gastrointestinal: Negative for abdominal distention and abdominal pain. Genitourinary: Negative for difficulty urinating and frequency. Musculoskeletal: Negative for arthralgias and gait problem. Skin: Negative. Neurological: Negative for dizziness and numbness. Endocrine: Negative. Allergic/Immunologic: Negative. OBJECTIVE: Visit Vitals Smoking Status Never Physical Exam Vitals reviewed. Cardiovascular: Rate and Rhythm: Normal rate and regular rhythm. Pulses: Normal pulses. Heart sounds: Normal heart sounds. Pulmonary: Effort: Pulmonary effort is normal. Breath sounds: Normal breath sounds. Abdominal: General: Abdomen is flat. Bowel sounds are normal. Palpations: Abdomen is soft. Tenderness: There is no right CVA tenderness or left CVA tenderness. Musculoskeletal: General: Normal range of motion. Skin: General: Skin is warm and dry. Neurological: General: No focal deficit present. Mental Status: She is oriented to person, place, and time. ASSESSMENT AND PLAN: Assessment/Plan Diagnoses and all orders for this visit: Dysuria - POCT urinalysis dipstick manually resulted - Urine culture Acute cystitis with hematuria - cephalexin (Keflex) 500 MG capsule; Take 1 capsule (500 mg) by mouth in the morning and 1 capsule (500 mg) before bedtime. Do all this for 10 days. documented in this encounter [facility] 05-11-2024 History of Present illness Narrative Images [...] physical therapy session was conducted in the summer, focusing on her back. She expresses interest in resuming physical therapy. She used to participate in [employer] classes, which included weightlifting, but discontinued this [...] in weight-bearing exercises, such as resuming her [employer] classes, to stimulate bone health. A bone density test will be scheduled to monitor her condition. PROCEDURE The patient underwent hip replacement surgery approximately 2 years ago. documented in this encounter [facility] 05-05-2024 Telephone encounter Note Voicemail left at 3:55 pm. I left her a to schedule an appt. Ga, this is Marck Maria for 45. I [...] why that is happening. So it is [phone] Neri Maria [id number]. Thank you very much. Peter lemus. [facility] 05-05-2024 Miscellaneous Notes Voicemail left at 3:55 pm. I left her a vm to schedule an appt. Ga, this is Marck Maria for 45. I [...] why that is happening. So it is [phone] Neri Maria [id number]. Thank you very much. Peter lemus. documented in this encounter [facility] 03-03-2024 Telephone encounter Note Approvals with refills [facility] 03-03-2024 Miscellaneous Notes Approvals with refills documented in this encounter [facility] 02-03-2024 History of Present illness Narrative Images [...] challenging. She also consumes iced coffee from [email or web address]. SUBJECTIVE: MEDICATIONS: Current Outpatient Medications Medication Instructions [...] good preventative measure. documented in this encounter [facility] 01-10-2024 History of Present illness Narrative Images [...] follow-ups on file. documented in this encounter [facility] 01-07-2024 History of Present illness Narrative Marck [...] Orders Flu vaccine, high dose seasonal, PF ([id number]) (Fluzone High Dose) Urinary incontinence, unspecified type Relevant Orders POCT Urinalysis dipstick D[employer]c sugary ice coffees documented in this encounter [facility] 08-02-2023 Miscellaneous Notes Received a phone call from [facility] for patient records to be transferred. documented in this encounter [facility] 08-02-2023 Telephone encounter Note Received a phone call from [facility] for patient records to be transferred. [facility] 06-11-2023 Telephone encounter Note PT Calling to check status of this request, unsure as how to explain the denial of the refill. [facility] 06-11-2023 Miscellaneous Notes PT Calling to check status of this request, unsure as how to explain the denial of the refill. Medication refused due to failing protocol. Requested Prescriptions Pending Prescriptions Disp Refills methylPREDNISolone (Medrol Dospak) 4 MG tablets 21 tablet Sig: Follow schedule on package instructions There is no refill protocol information for this order documented in this encounter [facility] 06-11-2023 Telephone encounter Note Medication refused due to failing protocol. Requested Prescriptions Pending Prescriptions Disp Refills methylPREDNISolone (Medrol Dospak) 4 MG tablets 21 tablet Sig: Follow schedule on package instructions There is no refill protocol information for this order [facility] 06-10-2023 History of Present illness Narrative Marck [...] Normal/bedrest/immobile Mental Status: Oriented to own ability Miguel Fall Risk Score: 40 Health Risk Assessment [...] Recheck in 6months documented in this encounter [facility] 06-05-2023 History of Present illness Narrative Subjective [...] anemia Age-related osteoporosis without current pathological fracture ([facility]/H[facility]) documented [facility] encounter [facility] [...] weakness (generalized) documented in [facility]* Diagnosis Dysuria- Primary Acute cystitis with hematuria documented in this encounter [facility]* Diagnosis Medicare annual wellness visit, subsequent- Primary Routine general medical examination at a health care facility Age-related osteoporosis without current pathological fracture Gastroesophageal reflux disease without esophagitis Esophageal reflux Primary osteoarthritis of left hip Iron deficiency anemia, unspecified iron deficiency anemia type Neoplasm of unspecified behavior of bone, soft tissue, and skin documented in this encounter [facility]* Diagnosis Dysuria- Primary Acute cystitis with hematuria- Primary documented in this encounter [facility]* Diagnosis Atrophic vaginitis- Primary Postmenopausal atrophic vaginitis Dysuria documented in this encounter [facility] Purpose Family History No Family History Records FoundNo Family History Records FoundNo Family History Records FoundNo Family History Records Found Advance Directives Documents on File Type Date Recorded Patient Day Care Home Provider Expl anation Living Will 01/17/2023 11:55 AM Durable Power of [employer] Layer [employer] 01/17/2023 11:54 AM Latest Code Status on File Code Status Date Activated Date Inactivated Comments Full Code 12/28/2022 6:14 PM 01/01/2023 3:49 PM Code Status History Code Status Date Activated Date Inactivated Comments Full Code 12/26/2022 10:18 AM 12/27/2022 7:36 PM Additional Source Comments INFORMATION SOURCE (unrecogn ized section and content) DATE CREATED AUTHOR 04/10/2021 [facility] dical Specialist DATE CREATED AUTHOR AUTHOR'S ORGANIZ ATION 01/13/2024 [facility] DATE CREATED AUTHOR AUTHOR'S ORGANIZ ATION 10/21/2024 [facility] DATE CREATED AUTHOR AUTHOR'S ORGANIZ ATION 11/18/2024 [facility] dical Specialists EPIC Reason for Visit (unrecogniz ed section and content) Reason Comments Med Refill Reason Comments Medicare Annual Wellness Visit Subsequen t Reason Comments Follow-up Patient here for 6 m [facility] follow up. She was in the [...] Reason Onset Date Comments Records, transfer to [facility] 08/02/2023 Reason Comments UTI Reason Comments Medicare Annual Wellness Visit Subsequen t Dry skin Face, dry patches Reason Comments Urinary Problem Burning with urinati on, negative culture. Care Teams (unrecognized sec tion and content) [employer] Relationship Specialty Start Date End Date Benji Cantrell MD [address] [facility] [address] [place] [address] PCP - [employer] 04/29/22 Lisandra Jimenez MD [address] [place] [address] PCP - General Family Medicine 09/10/22 [employer] Relationship Specialty Start Date End Date Benji Cantrell MD [address] [facility] [address] [place] [address] PCP - [employer] 04/29/22 Lisandra Jimenez MD [address] [place] [address] PCP - General Family Medicine 09/10/22 [employer] Relationship Specialty Start Date End Date Benji Cantrell MD [address] [place] [address] PCP - [employer] 04/29/22 Lisandra Jimenez MD [address] [place] [facility] [address] PCP - General Family Medicine 09/10/22 [employer] Relationship Specialty Start Date End Date Benji Cantrell MD [address] [place] [address] PCP - [employer] 04/29/22 Lisandra Jimenez MD [address] [place] [facility] [address] PCP - General Family Medicine 09/10/22 [employer] Relationship Specialty Start Date End Date Benji Cantrell MD [address] [place] [address] PCP - [employer] 04/29/22 Lisandra Jimenez MD [address] [place] [facility] [address] PCP - General Family Medicine 09/10/22 [employer] Relationship Specialty Start Date End Date Benji Cantrell MD [address] [place] [address] PCP - [employer] 04/29/21 Lisandra Jimenez MD [address] [place] [facility] [address] PCP - General Family Medicine 09/10/22 [employer] Relationship Specialty Start Date End Date Benji Cantrell MD [address] [facility] [address] [place] [address] PCP - [employer] 04/29/21 Lisandra Jimenez MD [address] [place] [address] PCP - General Family Medicine 09/10/22 [employer] Relationship Specialty Start Date End Date Benji Cantrell MD [address] [facility] [address] [place] [address] PCP - [employer] 04/29/21 Lisandra Jimenez MD [address] [facility] [place] [address] PCP - General Family Medicine 09/10/22 [employer] Relationship Specialty Start Date End Date Benji Cantrell MD [address] [facility] [address] [place] [address] PCP - [employer] 04/29/21 Lisandra Jimenez MD [address] [facility] [place] [address] PCP - General Family Medicine 09/10/22 [employer] Relationship Specialty Start Date End Date Benji Cantrell MD [address] [facility] [address] [place] [address] PCP - [employer] 04/29/21 Lisandra Jimenez MD [address] [facility] [place] [address] PCP - General Family Medicine 09/10/22 [employer] Relationship Specialty Start Date End Date Benji Cantrell MD [address] [facility] [address] [place] [address] PCP - [employer] 04/29/21 Lisandra Jimenez MD [address] [place] [address] PCP - General Family Medicine 09/10/22 [employer] Relationship Specialty Start Date End Date Benji Cantrell MD [address] [facility] [address] [place] [address] PCP - [employer] 04/29/21 Lisandra Jimenez MD [address] [place] [address] PCP - General Family Medicine 09/10/22 [employer] Relationship Specialty Start Date End Date Benji Cantrell MD [address] [facility] [address] [place] [address] PCP - [employer] 04/29/21 Lisandra Jimenez MD [address] [place] [facility] [place] [address] PCP - General Family Medicine 09/10/22 [employer] Relationship Specialty Start Date End Date Benji Cantrell MD [address] [facility] [address] [place] [address] PCP - [employer] 04/29/21 Lisandra Jimenez MD [address] [place] [address] PCP - General Family Medicine 09/10/22 [employer] Relationship Specialty Start Date End Date Benji Cantrell MD [address] [facility] [address] [place] [address] PCP - [employer] 04/29/21 Lisandra Jimenez MD [address] [place] [facility] [address] PCP - General Family Medicine 09/10/22 [employer] Relationship Specialty Start Date End Date Lisandra Jimenez MD [address] [place] [place] [address] PCP - General Family Medicine 11/12/16 [employer] Relationship Specialty Start Date End Date Benji Cantrell MD [address] [facility] [address] [place] [address] PCP - [employer] 04/29/21 Lisandra Jimenez MD [address] [place] [address] PCP - General Family Medicine 09/10/22 [employer] Relationship Specialty Start Date End Date Benji Cantrell MD [address] [facility] [address] [place] [address] PCP - [employer] 04/29/21 Lisandra Jimenez MD [address] [facility] [place] [address] PCP - General Family Medicine 09/10/22 [employer] Relationship Specialty Start Date End Date Benji Cantrell MD [address] [facility] [address] [place] [address] PCP - [employer] 04/29/21 Lisandra Jimenez MD [address] [facility] [place] [address] PCP - General Family Medicine 09/10/22 FOR [...] BE BASED ON THE PRIMARY CLINICAL RECORDS. [facility] [employer] [facility]. provides no warranty or guarantee of the accuracy or completeness of information in this document.
--- NOTE | 2024-12-10 11:35 | PM.CN ---
Consult Note: HPI Data of Consult Patient: known to practice within the last 3 years Consult date: 12/10/24 Requesting Physician: Teresa Lynn NP Primary Care Provider: YOLA AMES Consult Narrative Reason for consult: left low back, hip pain Narrative: [id number] who presents for assessment. Worsening left low back and hip pain. Continues in a provider directed home exercise program >6 weeks, without benefit. Pain today 2/10 increasing to moderate pain (6/10) at times with standing, walking, sitting. utilizing tylenol and tramadol PRN with moderate relief of symptoms without side effects. pt reports >50% improvement in pain and functional ability from prior left SIJ injection and left L2,3 L3,4 TFESI for at least 3 months. denies falls/injury since last visit. cc:: CC: Teresa Lynn NP Review of Systems ROS Status of ROS 10 or more systems reviewed and unremarkable except as noted in history and below Musculoskeletal Reports: back pain; Denies: extremity pain or joint pain [facility] History (Updated 09/10/24 @ 09:54 by Teresa Lynn NP) Low back pain ?M54.50 - Low back pain, unspecified (ICD-10) Surgical History History of hip replacement ?Z96.649 - Presence of unspecified artificial hip joint (ICD-10) Meds Home Medications and Allergies Home Medications ?Medication ?Instructions ?Recorded ?Confirmed ?Type acetaminophen 650 mg 650 mg PO Q12H PRN pain 08/19/23 08/31/24 History tablet,extended release (Tylenol Arthritis Pain) alendronate 70 mg tablet 70 mg PO QWEEK 08/19/23 08/31/24 History famotidine 20 mg tablet 20 mg PO DAILY 08/19/23 08/31/24 History ferrous sulfate 325 mg (65 mg 325 mg PO DAILY 08/19/23 08/31/24 History iron) tablet (Feosol) metoprolol succinate 25 mg 25 mg PO BID 08/19/23 08/31/24 History tablet,extended release 24 hr tolterodine 2 mg tablet 2 mg PO DAILY 08/19/23 08/31/24 History lidocaine 5 % topical patch 1 patch topical DAILY #30 ea 10/10/23 08/31/24 Rx tramadol 50 mg tablet 50 mg PO BID PRN pain, severe #14 07/27/24 08/31/24 Rx tabs tramadol 50 mg tablet 50 mg PO DAILY PRN pain #7 tabs 08/19/24 08/31/24 Rx tramadol 50 mg tablet 50 mg PO BID PRN pain #60 tabs 09/10/24 Rx tramadol 50 mg tablet 50 mg PO BID PRN pain #60 tabs 11/06/24 Rx Allergies Allergy/AdvReac Type Severity Reaction Status Date / Time No Known Drug Allergies Allergy Verified 08/31/24 11:04 Exam Constitutional Documenting provider has reviewed patient's vital signs: yes Common normals: no apparent distress, oriented x3, healthy appearing, alert and well nourished General appearance: cooperative HENMT Common normals: normocephalic, hearing grossly normal bilaterally and moist oral mucous membranes Head and scalp: normocephalic Eye Common normals: PERRL Pupil: PERRL Neck & C-Spine Common normals: full ROM General: normal visual inspection Chest Common normals: inspection of chest normal Respiratory Common normals: normal respiratory effort, no retractions and no use of accessory muscles Back & Pelvis Lumbar spine/lower back: ROM limited, pain with ROM and straight leg raise positive left; no lumbar spinal tenderness Sacroiliac joints: SI joint(s) abnormal Other: decreased sensation left L2,3,4 strength 4/5 in LLE and 5/5 in RLE left sij positive leeann(patricks), gaenslens, thigh thrust, compression test Neuro Common normals: oriented x3 and CN's II-XII intact bilaterally Sensorium/orientation: alert Motor exam: no movement abnormalities noted Psych Common normals: mental status grossly normal, thought process normal, cooperative, affect normal, speech normal and activity/motor behavior normal Speech: normal speech Thought process: normal thought process Results Additional Findings Additional findings: If on a controlled substance or opioids, I have checked an [place] report on this patient and there are no aberrancies noted in the prescribing history.??If on a controlled substance or opioid a drug screen was completed and reviewed within the last year, and if there has not been a drug screen completed we ordered one today to monitor higher risk, state monitored pain medication use. As part of providing excellent, safe, comprehensive care, the following was completed at our patient's visit: 1. A medication reconciliation and review to ensure accurate knowledge of current/active medications, including asking our patients to inform us about any [id number] medications or herbal remedies/nutritional supplements/alternative remedies. 2. A review to specifically ensure our patients have had annual screening for screening for depression, screening for tobacco use, and screening for unhealthy alcohol use. For concerning screenings had a discussion with the patient, provided patient education, and recommended follow-up with primary care provider when appropriate. If patient noted with a risk of falling, they received education on strength, gait, and balance training to prevent future risk of falling. Portions of this note may have been carried over from the previous visit and updated as appropriate. Please note this office utilizes paper charting in addition to the electronic medical record. A list of current medications, vitals, and PMH is available there as the clinical staff outside of myself do not have access to [facility] charting during the clinic day operations. As part of providing quality comprehensive care the current medications, vitals, and PMH were reviewed in the paper chart. Assessment and Plan Assessment and Plan (1) Sacroiliitis: Assessment and Plan: 03/30/24 left SIJ >50% improvement for 3 months 08/10/24 left SIJ injection >50% improvement greater than 3 months The patient has had over 3 months of moderate to severe left low back and LLE pain with functional impairment and inadequate response to conservative care including NSAIDS (unless there are contraindication such as concurrent blood thinners), multiple oral or topical pain medications, and home exercise program/physical therapy.? Patient has completed >6 weeks of guided home exercise program and/or formal physical therapy program without relief of their symptoms.? The Oswestry Disability Index was completed, and the patient scored a 31%.? moderate to severe pain with standing, walking, ADLs, social life, travel, sleep We discussed the risks and benefits of the procedure with the patient, and we are NOT planning on using sedation as outlined in the guidelines from Medicare unless there is a documented reason that sedation would be strongly recommended.??The procedure will be completed with fluoroscopic guidance.? (2) Lumbar stenosis with neurogenic claudication: Assessment and Plan: 09/01/23 left L2-3 L3-4 TFESI >50% improvement greater than 3 months (3) Lumbar spondylosis: (4) Chronic use of opiate drug for therapeutic purpose: Assessment and Plan: I feel these medications are improving the patient's quality of life and allow them to tolerate activities of daily living as well as participate in recreational activity.? The patient does not report intolerable side effects. The patient is NOT opioid naive and non-pharmacologic and non-opioid treatment has failed to significantly relieve the patient's pain and improve functionality. The patient has a diagnosis that is related to a somatic or visceral pain etiology. ? ?? I reviewed with the patient the potential risks and side effects with the use of? opioid medications including but not limited to respiratory depression,? sedation, and even . Within the last 12 months I have verified the patient has access to naloxone should? these effects occur. The patient was advised to let? their family know they had Naloxone in case they would need to administer? the medication. I advised the patient to avoid the use of any other? sedation substances including alcohol, THC, and benzodiazepines while? taking opioid medications due to the risk of compounding side effects and? detrimental outcomes. within the last 12 months I have reviewed the [employer], pain treatment agreement and urine drug screen.? ?? A drug screen was completed within the last year, and no aberrancies were noted regarding their use of controlled substances. The patient understands they are subject to the terms and conditions of the pain contract that they have signed. ? ?? I have checked an [place]AR[place] report on this patient today and there are no aberrancies noted in the prescribing history.? Plan repeat left L2,3 L3,4 TFESI under fluoroscopy for lumbar stenosis with NC continue tramadol 50mg once daily as needed for moderate to severe pain continue HEP as tolerated f/u 2 weeks after injection, consider repeat left SIJ injection
== END 2024-12-10 10:54 | disposition home or self-care (01) ==
LOC: PM 10:53
PROVIDERS: PCP Family Medicine; Visit Provider Nurse Practitioner
DX: M46.1 Sacroiliitis, not elsewhere classified (principal); M48.062 Spinal stenosis, lumbar region with neurogenic claudication; M47.816 Spondylosis without myelopathy or radiculopathy, lumbar region; Z79.891 Long term (current) use of opiate analgesic
CPT/HCPCS: G0463

== ENCOUNTER 2025-01-04 09:45 | Day surgery (SDC) | payer MEDICARE, SELFPAY ==
--- OUTSIDE RECORDS SUMMARY | 2025-01-04 09:53 | XMS_ITS | CCD ---
Author Organization [facility] Care Team Providers Care Head Sampler Name Role Phone Benji Cantrell MD Unavailable Tony DE LA CRUZ, Lisandra Kwong Primary Care Provider [phone] LISANDRA JIMENEZ Primary Care Unavailable SERGIO JARVIS [...] (Antibiotic) Drug Allergy 09-02-19 Other (See Comments) [facility] (1 source) diphenhydrAMINE; Translations: [DIPHENHYDRAMINE HCL] [...] UA Negative Negative - 4(70) +++ mg/dL [facility] Blood, UA Positive Negative - 50 Dallin/mcL [facility] Clarity, UA Clear Located within [facility] re Color, UA Yellow [facility] Glucose, UA Negative Negative - 1999(110) ++++ mg/dL [facility] Interpretation and review of laboratory results Abnormal [facility] Ketones, UA Negative Negative - 160(16) ++++ mg/dL [facility] Leukocytes, UA 1+ Negative - 500+++ José/mcL [facility] Nitrite, UA Negative Negative - Positive [facility] pH, UA 5 5 - 9 [facility], UA Negative Negative - 1999(20) ++++ mg/dL [facility] Spec Grav, UA 1.015 1 - 1.03 [facility] Urobilinogen, UA 1.0 0.2 - 12 mg/dL [facility] macro (dipstick) panel (U)on 10-06-2024 Bilirubin, UA Negative Negative - 4(70) +++ mg/dL [facility] Blood, UA Positive Negative - 50 Dallin/mcL [facility] Clarity, UA Clear [facility] Color, UA Yellow [facility] Glucose, UA Negative Negative - 1999(110) ++++ mg/dL [facility] Ketones, UA Negative Negative - 160(16) ++++ mg/dL [facility] Leukocytes, UA Positive Negative - 500+++ José/mcL [facility] Nitrite, UA Negative Negative - Positive [facility] pH, UA 5 5 - 9 [facility] Protein, UA Positive Negative - 1999(20) ++++ mg/dL [facility] Spec Grav, UA 1 1 - 1.03 [facility] Urobilinogen, UA 1.0 0.2 - 12 mg/dL [facility] DEXA BONE DENSITYon 05-15-19 [...] ABSOLUTE BASOPHIL 0.0 X10E9/L Normal 0.0-0.2 [facility] Comment on above: Performed By: #### C BCA, CMP, 30552-2 #### [facility] ([id number]) [address] [place] [address], [place] [address] ABSOLUTE NEUTROPHIL 5.0 X10E9/L Normal 1.5-6.6 [facility] Comment on above: Performed By: #### Deanna BROWN CMP, 95730-0 #### [facility] ([id number]) [address] [place] [address] 61634 Basophils/100 WBC (Bld) 0.2 % Normal [facility] Comment on above: Performed By: #### Deanna BROWN CMP, #### [facility] ([id number]) [address] [place] [address] 49923 Eosinophils (Bld) [#/Vol] 0.1 10*3/uL Normal 0.0-0.4 [facility] Comment on above: Performed By: #### Deanna BROWN CMP, 62741-9 #### [facility] ([id number]) [address] [place] [address] 30266 Eosinophils/100 WBC (Bld) 1.2 % Normal [facility] Comment on above: Performed By: #### Deanna BROWN [facility], #### [facility] ([id number]) [address] [place] [address] 31104 Erythrocyte distribution width (RBC) [Ratio] 13.4 % Normal 11.5-15.0 [facility] Comment on above: Performed By: #### Deanna BROWN CMP, #### [facility] ([id number]) [address] [place] [address] 82622 Hematocrit (Bld) [Volume fraction] 39.6 % Normal 35-47 [facility] Comment on above: Performed By: #### Deanna BROWN CMP, #### [facility] ([id number]) [address] [place] [address] 77231 Hemoglobin (Bld) [Mass/Vol] 13.2 g/dL Normal 11.7-15.5 [facility] Comment on above: Performed By: #### C REDD BROWN, #### [facility] ([id number]) [address] [place] [address] 48164 Lymphocytes (Bld) [#/Vol] 1.0 10*3/uL Normal 1.0-3.5 [facility] Comment on above: Performed By: #### Deanna BROWN CMP, #### [facility] ([id number]) [address] [place] [address] 37078 Lymphocytes/100 WBC (Bld) 14.2 % Normal [facility] Comment on above: Performed By: #### Deanna BROWN CMP, #### [facility] ([id number]) [address] [place] [address] 59487 MCH (RBC) [Entitic mass] 31.0 pg Normal 27-34 [facility] Comment on above: Performed By: #### Deanna BROWN CMP, #### [facility] ([id number]) [address] [place] [address] 94149 MCHC (RBC) [Mass/Vol] 33.4 g/dL Normal 32-36 [facility] Comment on above: Performed By: #### Deanna BROWN CMP, #### [facility] ([id number]) [address] [place] [address] 94259 MCV (RBC) [Entitic vol] 93 fL Normal 80-100 [facility] Comment on above: Performed By: #### Deanna BROWN CMP, #### [facility] ([id number]) [address] [place] [address] 29127 Monocytes (Bld) [#/Vol] 1.2 10*3/uL High 0-0.9 [facility] Comment on above: Performed By: #### Deanna BROWN CMP, #### [facility] ([id number]) [address] [place] [address] 38396 Monocytes/100 WBC (Bld) 16.8 % Normal [facility] Comment on above: Performed By: #### C KEVIN, CMP, 95857-8 #### [facility] ([id number]) [address] [place] [address] 98199 Neutrophils/100 WBC (Bld) 67.6 % Normal [facility] Comment on above: Performed By: #### C KEVIN, CMP, 09313-0 #### [facility] ([id number]) [address] [place] [address] 01157 Platelet mean volume (Bld) [Entitic vol] 8.6 fL Normal 7-12 [facility] Comment on above: Performed By: #### C KEVIN, CMP, 22426-7 #### [facility] ([id number]) [address] [place] [address] 40582 Platelets (Bld) [#/Vol] 172 10*3/uL Normal 150-450 [facility] Comment on above: Performed By: #### Deanna BROWN, CMP, 94881-5 #### [facility] ([id number]) [address] [place] [address] 55649 RBC COUNT 4.26 X10E12/L Normal 3.80-5.20 [facility] Comment on above: Performed By: #### C BCA, CMP, 18996-2 #### [facility] ([id number]) [address] [place] [address] 41705 WBC (Bld) [#/Vol] 7.3 10*3/uL Normal 4.0-11.0 [facility] Comment on above: Performed By: #### C KEVIN, CMP, 98751-8 #### [facility] ([id number]) [address] [place] [address] 43427 COMPREHENSIVE METABOLIC PANE [facility] 01-12-2024 Albumin [Mass/Vol] 3.8 g/dL Normal 3.2-5.3 [facility] Comment on above: Performed By: #### B ANJUM LIVR, CBCA #### [facility] ([id number]) [address] [place] [address] 59881 ALP [Catalytic activity/Vol] 49 U/L Normal 39-130 [facility] Comment on above: Performed By: #### B ANJUM, LIVR, CBCA #### [facility] ([id number]) [address] [place] [address] 40652 ALT [Catalytic activity/Vol] 28 U/L Normal 0-31 [facility] Comment on above: Performed By: #### B ANJUM LIVR, CBCA #### [facility] ([id number]) [address] [place] [address] 62762 Anion gap [Moles/Vol] 9 mmol/L Normal 5-15 [facility] Comment on above: Performed By: #### B ANJUM LIVR, CBCA #### [facility] ([id number]) [address] [place] [address] 75226 AST [Catalytic activity/Vol] 31 U/L Normal 0-41 [facility] Comment on above: Performed By: #### B ANJUM LIVR, CBCA #### [facility] ([id number]) [address] [place] [address] 47724 Bilirubin [Mass/Vol] 0.4 mg/dL Normal 0.3-1.2 [facility] Comment on above: Performed By: #### B ANJUM LIVR, CBCA #### [facility] ([id number]) [address] [place] [address] 53148 Calcium [Mass/Vol] 8.5 mg/dL Normal 8.5-10.5 [facility] Comment on above: Performed By: #### B ANJUM LIVNaima CBCA #### [facility] ([id number]) [address] [place] [address] 72404 Chloride [Moles/Vol] 104 mmol/L Normal 98-109 [facility] Comment on above: Performed By: #### B ANJUM LIVR, CBCA #### [facility] ([id number]) [address] [place] [address] 24124 CO2 [Moles/Vol] 25 mmol/L Normal 22-32 [facility] Comment on above: Performed By: #### B ANJUM LIVNaima CBCA #### [facility] ([id number]) [address] [place] [address] 95804 Creatinine [Mass/Vol] 0.79 mg/dL Normal 0.40-1.00 [facility] Comment on above: Result Comment: METH OD TRACEABLE TO IDMS STANDARD Performed By: #### B DIPTI VALERO CBCA #### [facility] ([id number]) [address] [place] [address] 05741 GFR/1.73 sq M.predicted among non-blacks MDRD (S/P/Bld) [Vol rate/Area] 77 mL/min/{1.73_m2} Normal >59 [facility] Comment on above: Result Comment: Reported eGFR is based on the CKD-EPI 2020 equation that does not use a race coefficient. Performed By: #### B ANJUM LIVNaima, CBCA #### [facility] ([id number]) [address] [place] [address] 65306 Glucose [Mass/Vol] 78 mg/dL Normal 65-99 [facility] Comment on above: Performed By: #### B ANJUM LIVR, CBCA #### [facility] ([id number]) [address] [place] [address] 40846 Potassium [Moles/Vol] 3.7 mmol/L Normal 3.5-5.0 [facility] Comment on above: Performed By: #### B MP, LIVR, CBCA #### [facility] ([id number]) [address] [place] [address] 97466 Protein [Mass/Vol] 6.8 g/dL Normal 6.0-8.0 [facility] Comment on above: Performed By: #### B MP, LIVR, CBCA #### [facility] ([id number]) [address] [place] [address] 84926 Sodium [Moles/Vol] 138 mmol/L Normal 134-146 [facility] Comment on above: Performed By: #### B MP, LIVR, CBCA #### [facility] ([id number]) [address] [place] [address] 40394 Urea nitrogen [Mass/Vol] 18 mg/dL Normal 5-27 [facility] Comment on above: Performed By: #### B MP, LIVR, CBCA #### [facility] ([id number]) [address] [place] [address] 04439 MAGNESIUMon 01-12-2024 Magnesium [Mass/Vol] 2.2 mg/dL Normal 1.8-2.6 [facility] Comment on above: Performed By: #### B MP, LIVR, CBCA #### [facility] ([id number]) [address] [place] [address] 85636 CBC AND AUTO DIFFon 01-11-20 24 ABSOLUTE BASOPHIL 0.0 X10E9/L Normal 0.0-0.2 [facility] Comment on above: Performed By: #### C BCA, CMP, 73660-9, THYR #### [facility] ([id number]) [address] [place] [address] 76792 ABSOLUTE NEUTROPHIL 4.2 X10E9/L Normal 1.5-6.6 [facility] Comment on above: Performed By: #### C KEVIN, CMP, , THYR #### [facility] ([id number]) [address] [place] [address] 15245 Basophils/100 WBC (Bld) 0.2 % Normal [facility] Comment on above: Performed By: #### C KEVIN CMP, , THYR #### [facility] ([id number]) [address] [place] [address] 35442 Eosinophils (Bld) [#/Vol] 0.0 10*3/uL Normal 0.0-0.4 [facility] Comment on above: Performed By: #### C KEVIN CMP, , THYR #### [facility] ([id number]) [address] [place] [address] 19069 Eosinophils/100 WBC (Bld) 0.2 % Normal [facility] Comment on above: Performed By: #### C KEVIN, CMP, , THYR #### [facility] ([id number]) [address] [place] [address] 80187 Erythrocyte distribution width (RBC) [Ratio] 13.1 % Normal 11.5-15.0 [facility] Comment on above: Performed By: #### C KEVIN CMP, , THYR #### [facility] ([id number]) [address] [place] [address] 09120 Hematocrit (Bld) [Volume fraction] 37.4 % Normal 35-47 [facility] Comment on above: Performed By: #### C BCA CMP, , THYR #### [facility] ([id number]) [address] [place] [address] 86591 Hemoglobin (Bld) [Mass/Vol] 12.7 g/dL Normal 11.7-15.5 [facility] Comment on above: Performed By: #### C BCA, CMP, , THYR #### [facility] ([id number]) [address] [place] [address] 39333 Lymphocytes (Bld) [#/Vol] 0.9 10*3/uL Low 1.0-3.5 [facility] Comment on above: Performed By: #### C KEVIN, CMP, , THYR #### [facility] ([id number]) [address] [place] [address] 17250 Lymphocytes/100 WBC (Bld) 13.6 % Normal [facility] Comment on above: Performed By: #### C REDD BROWN, , THYR #### [facility] ([id number]) [address] [place] [address] 10610 MCH (RBC) [Entitic mass] 31.2 pg Normal 27-34 [facility] Comment on above: Performed By: #### C KEVIN, CMP, , THYR #### [facility] ([id number]) [address] [place] [address] 14895 MCHC (RBC) [Mass/Vol] 33.9 g/dL Normal 32-36 [facility] Comment on above: Performed By: #### C KEVIN CMP, , THYR #### [facility] ([id number]) [address] [place] [address] 15657 MCV (RBC) [Entitic vol] 92 fL Normal 80-100 [facility] Comment on above: Performed By: #### C KEVIN, CMP, , THYR #### [facility] ([id number]) [address] [place] [address] 41586 Monocytes (Bld) [#/Vol] 1.2 10*3/uL High 0-0.9 [facility] Comment on above: Performed By: #### C BCA, CMP, , THYR #### [facility] ([id number]) [address] [place] [address] 85119 Monocytes/100 WBC (Bld) 19.3 % Normal [facility] Comment on above: Performed By: #### C BCA, CMP, , THYR #### [facility] ([id number]) [address] [place] [address] 70660 Neutrophils/100 WBC (Bld) 66.7 % Normal [facility] Comment on above: Performed By: #### C KEVIN, CMP, , THYR #### [facility] ([id number]) [address] [place] [address] 45471 Platelet mean volume (Bld) [Entitic vol] 8.3 fL Normal 7-12 [facility] Comment on above: Performed By: #### C BCA, CMP, , THYR #### [facility] ([id number]) [address] [place] [address] 01029 Platelets (Bld) [#/Vol] 174 10*3/uL Normal 150-450 [facility] Comment on above: Performed By: #### C BCA, CMP, , THYR #### [facility] ([id number]) [address] [place] [address] 43686 RBC COUNT 4.06 X10E12/L Normal 3.80-5.20 [facility] Comment on above: Performed By: #### C BCA, CMP, , THYR #### [facility] ([id number]) [address] [place] [address] 19022 WBC (Bld) [#/Vol] 6.3 10*3/uL Normal 4.0-11.0 [facility] Comment on above: Performed By: #### C BCA, CMP, , THYR #### [facility] ([id number]) [address] [place] [address] 72002 COMPREHENSIVE METABOLIC PANE [place] 01-11-2024 Albumin [Mass/Vol] 3.6 g/dL Normal 3.2-5.3 [facility] Comment on above: Performed By: #### C BCA, CMP, , THYR #### [facility] ([id number]) [address] [place] [address] 05127 ALP [Catalytic activity/Vol] 47 U/L Normal 39-130 [facility] Comment on above: Performed By: #### C BCA, CMP, , THYR #### [facility] ([id number]) [address] [place] [address] 94813 ALT [Catalytic activity/Vol] 27 U/L Normal 0-31 [facility] Comment on above: Performed By: #### C BCA, CMP, , THYR #### [facility] ([id number]) [address] [place] [address] 13431 Anion gap [Moles/Vol] 9 mmol/L Normal 5-15 [facility] Comment on above: Performed By: #### C BCA, CMP, , THYR #### [facility] ([id number]) [address] [place] [address] 48363 AST [Catalytic activity/Vol] 28 U/L Normal 0-41 [facility] Comment on above: Performed By: #### C BCA, CMP, , THYR #### [facility] ([id number]) [address] [place] [address] 79108 Bilirubin [Mass/Vol] 0.5 mg/dL Normal 0.3-1.2 [facility] Comment on above: Performed By: #### C BCA, CMP, , THYR #### [facility] ([id number]) [address] [place] [address] 17413 Calcium [Mass/Vol] 8.5 mg/dL Normal 8.5-10.5 [facility] Comment on above: Performed By: #### C REDD BROWN, , THYR #### [facility] ([id number]) [address] [place] [address] 62736 Chloride [Moles/Vol] 106 mmol/L Normal 98-109 [facility] Comment on above: Performed By: #### C REDD BROWN, , THYR #### [facility] ([id number]) [address] [place] [address] 51231 CO2 [Moles/Vol] 24 mmol/L Normal 22-32 [facility] Comment on above: Performed By: #### C REDD BROWN, , THYR #### [facility] ([id number]) [address] [place] [address] 81303 Creatinine [Mass/Vol] 0.74 mg/dL Normal 0.40-1.00 [facility] Comment on above: Result Comment: METH OD TRACEABLE TO IDMS STANDARD Performed By: #### C REDD BROWN, , THYR #### [facility] ([id number]) [address] [place] [address] 49744 GFR/1.73 sq M.predicted among non-blacks MDRD (S/P/Bld) [Vol rate/Area] 83 mL/min/{1.73_m2} Normal >59 [facility] Comment on above: Result Comment: Reported eGFR is based on the CKD-EPI 2020 equation that does not use a race coefficient. Performed By: #### C REDD BROWN, , THYR #### [facility] ([id number]) [address] [place] [address] 62165 Glucose [Mass/Vol] 91 mg/dL Normal 65-99 [facility] Comment on above: Performed By: #### C KEVIN, CMP, , THYR #### [facility] ([id number]) [address] [place] [address] 33190 Potassium [Moles/Vol] 3.7 mmol/L Normal 3.5-5.0 [facility] Comment on above: Performed By: #### C BCA, CMP, , THYR #### [facility] ([id number]) [address] [place] [address] 47338 Protein [Mass/Vol] 6.5 g/dL Normal 6.0-8.0 [facility] Comment on above: Performed By: #### C KEVIN, CMP, , THYR #### [facility] ([id number]) [address] [place] [address] 10431 Sodium [Moles/Vol] 139 mmol/L Normal 134-146 [facility] Comment on above: Performed By: #### C KEVIN, CMP, , THYR #### [facility] ([id number]) [address] [place] [address] 13641 Urea nitrogen [Mass/Vol] 15 mg/dL Normal 5-27 [facility] Comment on above: Performed By: #### C BCA, CMP, , THYR #### [facility] ([id number]) [address] [place] [address] 59003 MAGNESIUMon 01-11-2024 Magnesium [Mass/Vol] 2.6 mg/dL Normal 1.8-2.6 [facility] Comment on above: Performed By: #### 1 9123-9 #### [facility] ([id number]) [address] [place] [address] 28188 Magnesium [Mass/Vol] 1.8 mg/dL Normal 1.8-2.6 [facility] Comment on above: Performed By: #### C BCA, CMP, , THYR #### [facility] ([id number]) [address] [place] [address] [place] [address] THYROID PROFILEon 01-11-2024 Free T4 [Mass/Vol] 0.81 ng/dL Normal 0.61-1.60 [facility] Comment on above: Performed By: #### C BCA, CMP, , THYR #### [facility] ([id number]) [address] [place] [address] 23130 TSH 0.64 uIU/mL Normal 0.49-4.67 [facility] Comment on above: Performed By: #### C BCA, CMP, , THYR #### [facility] ([id number]) [address] [place] [address] 26981 BASIC METABOLIC PANLon 01-09 Anion gap [Moles/Vol] 7 mmol/L Normal 5-15 [facility] Comment on above: Performed By: #### B MP, LIVR, CBCA #### [facility] ([id number]) [address] [place] [address] 53599 Calcium [Mass/Vol] 8.3 mg/dL Low 8.5-10.5 [facility] Comment on above: Performed By: #### B MP, LIVR, CBCA #### [facility] ([id number]) [address] [place] [address] [place] [address] Chloride [Moles/Vol] 106 mmol/L Normal 98-109 [facility] Comment on above: Performed By: #### B MP, LIVR, CBCA #### [facility] ([id number]) [address] [place] [address] 80739 CO2 [Moles/Vol] 22 mmol/L Normal 22-32 [facility] Comment on above: Performed By: #### B MP, LIVR, CBCA #### [facility] ([id number]) [address] [place] [address] 46069 Creatinine [Mass/Vol] 0.90 mg/dL Normal 0.40-1.00 [facility] Comment on above: Result Comment: METH OD TRACEABLE TO IDMS STANDARD Performed By: #### B ANJUM LIVR, CBCA #### [facility] ([id number]) [address] [place] [address] 50433 GFR/1.73 sq M.predicted among non-blacks MDRD (S/P/Bld) [Vol rate/Area] 65 mL/min/{1.73_m2} Normal >59 [facility] Comment on above: Result Comment: Reported eGFR is based on the CKD-EPI 2020 equation that does not use a race coefficient. Performed By: #### B ANJUM, LIVR, CBCA #### [facility] ([id number]) [address] [place] [address] 24791 Glucose [Mass/Vol] 100 mg/dL High 65-99 [facility] Comment on above: Performed By: #### B ANJUM LIVR, CBCA #### [facility] ([id number]) [address] [place] [address] 93150 Potassium [Moles/Vol] 4.9 mmol/L Normal 3.5-5.0 [facility] Comment on above: Result Comment: SPEC IMEN HEMOLYZED, RESULTS INCREASED Performed By: #### B MP, LIVR, CBCA #### [facility] ([id number]) [address] [place] [address] 24725 Sodium [Moles/Vol] 135 mmol/L Normal 134-146 [facility] Comment on above: Performed By: #### B MP, LIVR, CBCA #### [facility] ([id number]) [address] [place] [address] 24322 Urea nitrogen [Mass/Vol] 19 mg/dL Normal 5-27 [facility] Comment on above: Performed By: #### B MP, LIVR, CBCA #### [facility] ([id number]) [address] [place] [address] 19105 CBC AND AUTO DIFFon 01-10-20 24 ABSOLUTE BASOPHIL 0.0 X10E9/L Normal 0.0-0.2 [facility] Comment on above: Performed By: #### B MP, LIVR, CBCA #### [facility] ([id number]) [address] [place] [address] 57597 ABSOLUTE NEUTROPHIL 5.2 X10E9/L Normal 1.5-6.6 [facility] Comment on above: Performed By: #### B MP, LIVR, CBCA #### [facility] ([id number]) [address] [place] [address] 03258 Basophils/100 WBC (Bld) 0.2 % Normal [facility] Comment on above: Performed By: #### B MP, LIVR, CBCA #### [facility] ([id number]) [address] [place] [address] 36491 Eosinophils (Bld) [#/Vol] 0.0 10*3/uL Normal 0.0-0.4 [facility] Comment on above: Performed By: #### B MP, LIVR, CBCA #### [facility] ([id number]) [address] [place] [address] 78195 Eosinophils/100 WBC (Bld) 0.2 % Normal [facility] Comment on above: Performed By: #### B MP, LIVR, CBCA #### [facility] ([id number]) [address] [place] [address] 89137 Erythrocyte distribution width (RBC) [Ratio] 13.2 % Normal 11.5-15.0 [facility] Comment on above: Performed By: #### B MP, LIVR, CBCA #### [facility] ([id number]) [address] [place] [address] 21033 Hematocrit (Bld) [Volume fraction] 36.7 % Normal 35-47 [facility] Comment on above: Performed By: #### B MP, LIVR, CBCA #### [facility] ([id number]) [address] [place] [address] 90148 Hemoglobin (Bld) [Mass/Vol] 12.5 g/dL Normal 11.7-15.5 [facility] Comment on above: Performed By: #### B MP, LIVR, CBCA #### [facility] ([id number]) [address] [place] [address] 22945 Lymphocytes (Bld) [#/Vol] 0.7 10*3/uL Low 1.0-3.5 [facility] Comment on above: Performed By: #### B MP, LIVR, CBCA #### [facility] ([id number]) [address] [place] [address] 80441 Lymphocytes/100 WBC (Bld) 9.9 % Normal [facility] Comment on above: Performed By: #### B MP, LIVR, CBCA #### [facility] ([id number]) [address] [place] [address] 99429 MCH (RBC) [Entitic mass] 31.4 pg Normal 27-34 [facility] Comment on above: Performed By: #### B MP, LIVR, CBCA #### [facility] ([id number]) [address] [place] [address] 26714 MCHC (RBC) [Mass/Vol] 34.0 g/dL Normal 32-36 [facility] Comment on above: Performed By: #### B MP, LIVR, CBCA #### [facility] ([id number]) [address] [place] [address] 78835 MCV (RBC) [Entitic vol] 92 fL Normal 80-100 [facility] Comment on above: Performed By: #### B MP, LIVR, CBCA #### [facility] ([id number]) [address] [place] [address] 56127 Monocytes (Bld) [#/Vol] 1.0 10*3/uL High 0-0.9 [facility] Comment on above: Performed By: #### B MP, LIVR, CBCA #### [facility] ([id number]) [address] [place] [address] 47107 Monocytes/100 WBC (Bld) 14.7 % Normal [facility] Comment on above: Performed By: #### B MP, LIVR, CBCA #### [facility] ([id number]) [address] [place] [address] 53711 Neutrophils/100 WBC (Bld) 75.0 % Normal [facility] Comment on above: Performed By: #### B MP, LIVR, CBCA #### [facility] ([id number]) [address] [place] [address] 24067 Platelet mean volume (Bld) [Entitic vol] 8.1 fL Normal 7-12 [facility] Comment on above: Performed By: #### B MP, LIVR, CBCA #### [facility] ([id number]) [address] [place] [address] 57118 Platelets (Bld) [#/Vol] 173 10*3/uL Normal 150-450 [facility] Comment on above: Performed By: #### B MP, LIVR, CBCA #### [facility] ([id number]) [address] [place] [address] 35709 RBC COUNT 3.97 X10E12/L Normal 3.80-5.20 [facility] Comment on above: Performed By: #### B MP, LIVR, CBCA #### [facility] ([id number]) [address] [place] [address] 06586 WBC (Bld) [#/Vol] 6.9 10*3/uL Normal 4.0-11.0 [facility] Comment on above: Performed By: #### B MP, LIVR, CBCA #### [facility] ([id number]) [address] [place] [address] 74382 LIVER PANELon 01-10-2024 Albumin [Mass/Vol] 3.9 g/dL Normal 3.2-5.3 [facility] Comment on above: Performed By: #### B MP, LIVR, CBCA #### [facility] ([id number]) [address] [place] [address] 11540 ALP [Catalytic activity/Vol] 47 U/L Normal 39-130 [facility] Comment on above: Performed By: #### B MP, LIVR, CBCA #### [facility] ([id number]) [address] [place] [address] 21177 ALT [Catalytic activity/Vol] 23 U/L Normal 0-31 [facility] Comment on above: Result Comment: SPEC IMEN HEMOLYZED, RESULTS INCREASED Performed By: #### B MP, LIVR, CBCA #### [facility] ([id number]) [address] [place] [address] 84386 AST [Catalytic activity/Vol] 44 U/L High 0-41 [facility] Comment on above: Result Comment: SPEC IMEN HEMOLYZED, RESULTS INCREASED Performed By: #### B MP, LIVR, CBCA #### [facility] ([id number]) [address] [place] [address] 43556 Bilirubin [Mass/Vol] 1.3 mg/dL High 0.3-1.2 [facility] Comment on above: Result Comment: RESU LTS QUESTIONABLE DUE TO HEMOLYSIS Performed By: #### B MP, LIVR, CBCA #### [facility] ([id number]) [address] [place] [address] 71480 Bilirubin.direct [Mass/Vol] 0.4 mg/dL Normal 0.0-0.4 [facility] Comment on above: Performed By: #### B MP, LIVR, CBCA #### [facility] ([id number]) [address] [place] [address] Protein [Mass/Vol] 7.0 g/dL Normal 6.0-8.0 [facility] Comment on above: Result Comment: SPEC IMEN HEMOLYZED, RESULTS INCREASED Performed By: #### B MP, LIVR, CBCA #### [facility] ([id number]) [address] [place] [address] Laboratory - Microbiology an d Antimicrobial susceptibilityon 01-10-2024 SARS-CoV-2 (COVID-19) RNA NATIVIDAD+probe Ql (Unsp spec) Positive [facility] No Panel Informationon 01-09 FLU A Negative [facility] FLU B Negative [facility] Interpretation and review of laboratory results Abnormal [facility] XR CHEST 1 [...] Lockett MD on 01/10/2024 8:08 PM Normal [facility] Urinalysis macro (dipstick) panel (U)on 01-07-2024 Bilirubin, UA Negative Negative - 4(70) +++ mg/dL [facility] Blood, UA Negative Negative - 50 Dallin/mcL [facility] Clarity, UA Clear [facility] Color, UA Light Yellow [facility] are Glucose, UA Negative Negative - 1999(110) ++++ mg/dL [facility] Interpretation and review of laboratory results Normal [facility] Ketones, UA Negative Negative - 160(16) ++++ mg/dL [facility] Leukocytes, UA Negative Negative - 500+++ José/mcL [facility] Nitrite, UA Negative Negative - Positive [facility] pH, UA 6.0 5 - 9 [facility] Revision3 e Protein, UA Negative Negative - 1999(20) ++++ mg/dL [facility] Spec Grav, UA 1.010 1 - 1.03 [facility] Urobilinogen, UA 0.2 0.2 - 12 mg/dL [facility] XR Lumbar spine 4 [facility] Result: June 05, 2023 x-rays AP lateral and lateral flexion-extension views of the lumbar spine demonstrate severe scoliosis apex to the right at the thoracolumbar junction of nearly 90 degrees curvature in the coronal plane. There are no definitive fractures identified. Impression: Severe scoliosis Corwin Lui D.O. [facility] XR Lumbar spine 4 ViewsOrder ed By: Andrea Lui on 06-06-2023 [facility] [employer] Work Phone: XR Lumbar spine 4 [facility] Study observation (narrative) [facility] SCREENING MAMMOGRAM W/JORDAN, BILATERAL*on 04-10-2021 SCREENING [...] by Filiberto Love on 04/10/2021 1211 Normal [facility] [employer] Vital Signs Date Time Vital Sign Value Performing Clinician Farhad rodriguez 11-17-2024 10:17-0400 Body height 153.7 cm Lisandra Jimenez MD Work Phone: [facility] 11-17-2024 10:17-0400 Body mass index (BMI) [Ratio] 20.71 kg/m2 Lisandra Jimenez MD Work Phone: [facility] 11-17-2024 10:17-0400 Body weight 48.9 kg Lisandra Jimenez MD Work Phone: [facility] 11-17-2024 10:17-0400 Diastolic blood pressure 68 mm[Hg] Lisandra Jimenez MD Work Phone: [facility] 11-17-2024 10:17-0400 Heart rate 50 /min Lisandra Jimenez MD Work Phone: [facility] 11-17-2024 10:17-0400 Respiratory rate 18 /min Lisandra Jimenez MD Work Phone: [facility] 11-17-2024 10:17-0400 SaO2% (BldA) [Mass fraction] 97 % Lisandra Jimenez MD Work Phone: [facility] 11-17-2024 10:17-0400 Systolic blood pressure 122 mm[Hg] Lisandra Jimenez MD Work Phone: [facility] 10-16-2024 14:10-0400 Body height 153.7 cm Kathia Purvis ASSISTANT [employer] Work Phone: [facility] 10-16-2024 14:10-0400 Body mass index (BMI) [Ratio] 20.71 kg/m2 Kathia Purvis ASSISTANT HA[employer] Work Phone: [facility] 10-16-2024 14:10-0400 Body temperature 99.19 [degF] Kathia Purvis ASSISTANT HAIRSTYLIST Work Phone: [facility] 10-16-2024 14:10-0400 Body weight 48.9 kg Kathia Purvis ASSISTANT HAIRSTYLIST Work Phone: [facility] 10-16-2024 14:10-0400 Diastolic blood pressure 84 mm[Hg] Kathia Majors ASSISTANT HAIRSTYLIST Work Phone: [facility] 10-16-2024 14:10-0400 Heart rate 96 /min Kathia Majors ASSISTANT HAIRSTYLIST Work Phone: [facility] 10-16-2024 14:10-0400 SaO2% (BldA) [Mass fraction] 97 % Kathia Majors ASSISTANT HAIRSTYLIST Work Phone: [facility] 10-16-2024 14:10-0400 Systolic blood pressure 118 mm[Hg] Kathia Majors ASSISTANT HAIRSTYLIST Work Phone: [facility] 10-06-2024 16:05-0400 Body temperature 97.59 [degF] Kinjal Marcospatrick ASSISTANT HAIRSTYLIST Work Phone: [facility] 10-06-2024 16:05-0400 Diastolic blood pressure 82 mm[Hg] Kinjal Urbano ASSISTANT HAIRSTYLIST Work Phone: [facility] 10-06-2024 16:05-0400 Systolic blood pressure 126 mm[Hg] Kinjal Urbano ASSISTANT HAIRSTYLIST Work Phone: [facility] 05-11-2024 15:02-0500 Body height 153.7 cm Lisandra Jimenez MD Work Phone: [facility] 05-11-2024 15:02-0500 Body mass index (BMI) [Ratio] 21.36 kg/m2 Lisandra Jimenez MD Work Phone: [facility] 05-11-2024 15:02-0500 Body weight 50.44 kg Lisandra Jimenez MD Work Phone: [facility] 05-11-2024 15:02-0500 Diastolic blood pressure 64 mm[Hg] Lisandra Jimenez MD Work Phone: [facility] 05-11-2024 15:02-0500 Heart rate 65 /min Lisandra Jimenez MD Work Phone: [facility] 05-11-2024 15:02-0500 Respiratory rate 18 /min Lisandra Jimenez MD Work Phone: [facility] 05-11-2024 15:02-0500 SaO2% (BldA) [Mass fraction] 99 % Lisandra Jimenez MD Work Phone: [facility] 05-11-2024 15:02-0500 Systolic blood pressure 112 mm[Hg] Lisandra Jimenez MD Work Phone: [facility] 02-03-2024 09:06-0400 Body height 153.7 cm Lisandra Jimenez MD Work Phone: [facility] 02-03-2024 09:06-0400 Body mass index (BMI) [Ratio] 21.32 kg/m2 Lisandra Jimenez MD Work Phone: [facility] 02-03-2024 09:06-0400 Body weight 50.35 kg Lisandra Jimenez MD Work Phone: [facility] 02-03-2024 09:06-0400 Heart rate 83 /min Lisandra Jimenez MD Work Phone: [facility] 02-03-2024 09:06-0400 SaO2% (BldA) [Mass fraction] 94 % Lisandra Jimenez MD Work Phone: [facility] 01-10-2024 16:07-0400 Body height 154.9 cm Diana Gomez MD Work Phone: [facility] 01-10-2024 16:07-0400 Body temperature 98.8 [degF] Diana Gomez MD Work Phone: [facility] 01-10-2024 16:07-0400 Diastolic blood pressure 78 mm[Hg] Diana Gomez MD Work Phone: [facility] 01-10-2024 16:07-0400 Heart rate 122 /min Diana Gomez MD Work Phone: [facility] 01-10-2024 16:07-0400 SaO2% (BldA) [Mass fraction] 93 % Diana Gomez MD Work Phone: [facility] 01-10-2024 16:07-0400 Systolic blood pressure 122 mm[Hg] Diana Gomez MD Work Phone: [facility] 01-07-2024 13:02-0400 Body height 154.9 cm Lisandra Jimenez MD Work Phone: [facility] 01-07-2024 13:02-0400 Body mass index (BMI) [Ratio] 21.54 kg/m2 Lisandra Jimenez MD Work Phone: [facility] 01-07-2024 13:02-0400 Body weight 51.71 kg Lisandra Jimenez MD Work Phone: [facility] 01-07-2024 13:02-0400 Diastolic blood pressure 78 mm[Hg] Lisandra Jimenez MD Work Phone: [facility] 01-07-2024 13:02-0400 Heart rate 65 /min Lisandra Jimenez MD Work Phone: [facility] 01-07-2024 13:02-0400 Respiratory rate 18 /min Lisandra Jimenez MD Work Phone: [facility] 01-07-2024 13:02-0400 SaO2% (BldA) [Mass fraction] 97 % Lisandra Jimenez MD Work Phone: [facility] 01-07-2024 13:02-0400 Systolic blood pressure 122 mm[Hg] Lisandra Jimenez MD Work Phone: [facility] 06-10-2023 10:05-0500 Body height 154.9 cm Lisandra Jimenez MD Work Phone: [facility] 06-10-2023 10:05-0500 Body mass index (BMI) [Ratio] 20.6 kg/m2 Lisandra Jimenez MD Work Phone: [facility] 06-10-2023 10:05-0500 Body weight 49.44 kg Lisandra Jimenez MD Work Phone: [facility] 06-10-2023 10:05-0500 Diastolic blood pressure 68 mm[Hg] Lisandra Jimenez MD Work Phone: [facility] 06-10-2023 10:05-0500 Heart rate 76 /min Lisandra Jimenez MD Work Phone: [facility] 06-10-2023 10:05-0500 Respiratory rate 16 /min Lisandra Jimenez MD Work Phone: [facility] 06-10-2023 10:05-0500 Systolic blood pressure 130 mm[Hg] Lisandra Jimenez MD Work Phone: [facility] Encounters Encounter Date Encounter Type Care Provider Facility Start: 11-17-2024 End: 11-17-2024 Bamboo flowsheet Lisandra Jimenez MD Work Phone: [facility] Start: 11-17-2024 End: 11-17-2024 Bamboo flowsheet Lisandra Jimenez MD Work Phone: [facility] Start: 11-17-2024 End: 11-17-2024 ambulatory LISANDAR JIMENEZ Not Available Start: 11-17-2024 End: 11-17-2024 [...] End: 10-16-2024 Patient encounter status Kathiabrady Loomisanastasia ASSISTANT [employer]YLIST Work Phone: [facility] Start: 10-16-2024 End: 10-16-2024 Bamboo flowsheet Kathiabrady Loomisanastasia ASSISTANT HAIRSTYLIST Work Phone: [facility] Start: 10-16-2024 End: 10-16-2024 Bamboo flowsheet Kathiabrady Loomisanastasia ASSISTANT HAIRSTYLIST Work Phone: [facility] Start: 10-16-2024 End: 10-16-2024 ambulatory KATHIA MIGUELINAAnastasia Not Available Start: 10-08-2024 End: 10-08-2024 Follow-up encounter Kinjal Urbano ASSISTANT HAIRSTYLIST Work Phone: [facility] Start: 10-06-2024 End: 10-06-2024 ambulatory KINJAL URBANO Not Available Start: 10-06-2024 End: 10-06-2024 Office outpatient visit 25 minutes Kinjal Urbano ASSISTANT HAIRSTYLIST Work Phone: [facility] Comment on above: Dysuria (Primary Dx) ; Acute cystitis with hematuria Start: 08-31-2024 End: 08-31-2024 [facility]ulatory [facility] Start: 08-10-2024 End: 08-10-2024 ambulatory Mere Woodard [...] 03-30-2024 End: 03-30-2024 ambulatory Mere Woodard MD Facility:[facility] Start: 03-23-2024 End: 03-23-2024 ambulatory Mere Woodard MD Facility:[facility] Start: 03-03-2024 End: 03-03-2024 Refill Lisandra Jimenez MD Work Phone: [facility] Comment on above: Gastroesophageal ref lux disease without esophagitis; Mixed stress and urge urinary incontinence; Tachycardia; Age-related osteoporosis without current pathological fracture ([facility] Start: 02-03-2024 End: [...] 01-13-2024 Emergency department patient visit SERGIO JARVIS [facility] Start: 01-10-2024 End: 01-12-2024 ambulatory LISANDRA JIMENEZ [facility] Start: 01-10-2024 End: 01-10-2024 ambulatory DIANA GOMEZ [...] 08-02-2023 Telephone encounter Maya Villalobos RN [facility] Comment on above: Records, transfer to [facility] Start: 06-11-2023 Refill Lisandra Price Work Phone: [facility] Start: 06-10-2023 Bamboo flowsheet Lisandra Jimenez MD Work Phone: [facility] Start: 06-10-2023 Bamboo flowsheet Lisandra Jimenez MD Work Phone: [facility] Start: 06-10-2023 End: 06-10-2023 Patient encounter procedure Lisandra Jimenez MD Work Phone: [facility] Comment on above: Routine general medi vicente examination at a health care facility (Primary Dx); Gastroesophageal reflux disease without esophagitis; Arthritis, lumbar spine; Primary osteoarthritis of left hip; Postoperative anemia due to acute blood loss; Age-related osteoporosis without current pathological fracture ([facility]) Start: 06-10-2023 End: 06-10-2023 Patient encounter status Lisandra Jimenez MD Work Phone: [facility] Work Phone: Start: 06-06-2023 Refill Loli Yang [facility] Comment on above: Postnasal discharge Start: 06-05-2023 End: 06-05-2023 Office outpatient visit 15 minutes Linda Robins ASSISTANT HAIRSTYLIST Work Phone: [facility] Comment on above: S/P total left hip a rthroplasty (Primary Dx); Low back pain without sciatica, unspecified back pain laterality, unspecified chronicity; DDD (degenerative disc disease), lumbar; Scoliosis of thoracolumbar spine, unspecified scoliosis type Procedures Date Procedure Procedure Detail Performing Clinician Start: 11-17-2024 Urnls dip stick/tabl et rgnt non-auto w/o micrscp Lisandra iJmenez MD Work Phone: Start: 10-06-2024 Urnls dip stick/tabl et rgnt non-auto w/o micrscp Kinjal Urbano ASSISTANT HAIRSTYLIST Work Phone: Start: 01-10-2024 STATUS COVID-19/FLU Jayne Gomez MD Work Phone: Start: 01-07-2024 Urnls dip stick/tabl et rgnt non-auto w/o micrscp Lisandra Jimenez MD Work Phone: Start: 06-05-2023 Radex spine lumbosac ral minimum 4 views Linad Robins ASSISTANT HAIRSTYLIST Work Phone: Plan of Treatment Date Care Activity Detail Author Start: 10-16-2025 Medicare Annual Wellness (AWV) Medicare Annual Wellness (AWV) [facility] Start: 02-17-2025 End: 02-17-2025 Patient encounter procedure 02/17/2025 9:40 AM EDT Office Visit [facility] [address] [place] [phone] Lisandra Jimenez MD [address] [place] [address] [facility] Start: 12-28-2024 Influenza vaccination Influenza Vacc ine (#1) [facility] Start: 11-17-2024 End: 11-17-2025 Bacteria identified in Urine by Culture Urine culture (clean catch) Microbiology Routine Dysuria Expected: 11/17/2024 (Approximate), Expires: 11/17/2025 [facility] Work Phone: Comment on above: Expected: 11/17/2024 (Approximate), Expires: 11/17/2025 Start: 11-17-2024 End: 11-17-2025 Urinalysis complete panel - Urine Urinalysis with reflex microscopic (clean catch) Lab Routine Dysuria Expected: 11/17/2024 (Approximate), Expires: 11/17/2025 [facility] Comment on above: Expected: 11/17/2024 (Approximate), Expires: 11/17/2025 Start: 11-06-2024 End: 11-06-2024 Clinical Support 11/06/2024 4:00 PM EDT Clinical Support [facility] [address] [place] [phone] Dysuria (Primary Dx) [facility] Comment on above: Dysuria (Primary Dx) Start: 10-16-2024 End: 10-16-2024 Patient encounter procedure 10/16/2024 2:30 PM EDT Office Visit [facility] [address] [place] [phone] Kathia Purvis NP [address] [place], [place] [phone] Arrived [facility] Comment on above: Arrived Start: 10-16-2024 End: 10-16-2025 25-hydroxyvitamin D3 [Mass/volume] in Serum or Plasma Vitamin D 25 hydroxy Lab Routine Age-related osteoporosis without current pathological fracture Expected: 10/16/2024 (Approximate), Expires: 10/16/2025 [facility] Comment on above: Expected: 10/16/2024 (Approximate), Expires: 10/16/2025 Start: 10-16-2024 End: 10-16-2025 CBC W Auto Differential panel - Blood CBC and differential Lab Routine Routine general medical examination at a health care facility Gastroesophageal reflux disease without esophagitis Iron deficiency anemia, unspecified iron deficiency anemia type Expected: 10/16/2024 (Approximate), Expires: 10/16/2025 [facility] Work Phone: Comment on above: Expected: 10/16/2024 (Approximate), Expires: 10/16/2025 Start: 10-16-2024 End: 10-16-2025 Comprehensive metabolic 2000 panel - Serum or Plasma Comprehensive metabolic panel Lab Routine Routine general medical examination at a health care facility Gastroesophageal reflux disease without esophagitis Expected: 10/16/2024 (Approximate), Expires: 10/16/2025 [facility] Comment on above: Expected: 10/16/2024 (Approximate), Expires: 10/16/2025 Start: 06-10-2024 Medicare Annual Wellness (AWV) Medicare Annual Wellness (AWV) [facility] Start: 05-15-2024 End: 05-15-2024 Professional / ancillary services management 05/15/2024 10:00 AM EST Ancillary Procedure [facility] [address] [place] [address] [place] [phone] [facility] Start: 05-11-2024 End: 05-11-2024 [...] EDT Office Visit [facility] [address] [facility] [place] [phone] Lisandra Jimenez MD [address] [place], [place] [id number] Arrived [facility] Comment on above: Arrived Start: 01-02-2024 Adult BMI Screening Adult BMI Screen ing [facility] Start: 12-29-2023 Influenza vaccination N [facility] Start: 12-29-2023 Tobacco Screening Tobacco Screening [facility] Start: 12-09-2023 End: 12-09-2023 Patient encounter procedure 12/09/2023 9:40 AM EDT Office Visit [facility] [address] [facility] [place] [phone] Lisandra Jimenez MD [address] [place], [place] [phone] [facility] Start: 08-01-2023 Medicare Annual Wellness (AWV) Medicare Annual Wellness (AWV) [facility] Start: 07-30-2023 End: 07-30-2023 Patient encounter procedure 07/30/2023 9:00 AM EDT Office Visit [facility] [address] [place] [address] Lisandra Jimenez MD [address] [place] [address] [facility] Start: 07-01-2023 End: 07-01-2023 Patient encounter procedure 07/01/2023 9:00 AM EST Office Visit [facility] [address] [place] [address] Linda Robins ASSISTANT HAIRSTYLIST [address] [place] [address] [facility] Start: 06-26-2023 End: 06-26-2023 Patient encounter procedure 06/26/2023 10:00 AM EST Office Visit [facility] [address] [place] [address] Linda Robins NP [address] [place] [address] [facility] Start: 06-10-2023 End: 06-10-2023 Patient encounter procedure [facility] Comment on above: Arrived Start: 02-10-2023 DTaP,Tdap and Td Vaccines (3 - Td or Tdap) DTaP,Tdap and Td Vaccines (3 - Td or Tdap) [facility] Start: 12-28-2022 COVID-19 Vaccine ( season) COVID-19 Vaccine ( season) [facility] Start: 2010 Fall Risk Screening Fall Risk Screen ing [facility] [place] [facility] Start: 1957 Depression Screening Depression Scre ening [facility] Start: 1945 Medicare Annual Wellness Visit Medicare Annual Wellness Visit [facility] Bacteria identified in Urine by Culture Urine culture Microbiology Routine Dysuria Ordered: 10/06/2024 [facility] Work Phone: Comment on above: Ordered: 10/06/2024 Immunizations Immunization Date Immunization Notes Care Provider Armen alvarez 02-03-2024 influenza, high dose seasonal, preservative-free Lisandra Jimenez MD Work Phone: [facility] 02-03-2024 influenza virus vacc ine, unspecified formulation Lisandra Jimenez MD Work Phone: [facility] 04-08-2023 RSV, recombinant, protein subunit RSVpreF, adjuvant reconstitu, 120mcg/0.5mL, PF (Arexvy) Lisandra Jimenez MD Work Phone: [facility] 01-28-2023 Influenza, High-dose Seasonal, Quadrivalent, Preservative Free Loli Rivera ASSISTANT HAIRSTYLIST Work Phone: [facility] Work Phone: 01-28-2023 influenza virus vacc ine, unspecified formulation Lisandra Jimenez MD Work Phone: [facility] 02-06-2022 Influenza, High-dose Seasonal, Quadrivalent, Preservative Free Loli Rivera ASSISTANT HAIRSTYLIST Work Phone: [facility] 02-06-2022 Moderna Bivalent Price ster Vaccination Loli Rivera ASSISTANT HAIRSTYLIST Work Phone: [facility] 02-06-2022 Moderna SARS-CoV-2 50mcg/0.5mL Booster Loli Rivera ASSISTANT HAIRSTYLIST Work Phone: [facility] 02-06-2022 influenza virus vacc ine, unspecified formulation Maya Villalobos RN [facility] 01-26-2021 Influenza, High-dose Seasonal, Quadrivalent, Preservative Free Loli Rivera ASSISTANT HAIRSTYLIST Work Phone: [facility] 01-27-2020 Influenza, High-dose Seasonal, Quadrivalent, Preservative Free Loli Rivera ASSISTANT HAIRSTYLIST Work Phone: [facility] 03-12-2019 zoster vaccine recombinant Loli Rivera ASSISTANT HAIRSTYLIST Work Phone: [facility] 01-26-2019 zoster vaccine, live Loli W olf ASSISTANT HAIRSTYLIST Work Phone: [facility] 01-22-2019 influenza, high dose seasonal, preservative-free Loli Rivera ASSISTANT HAIRSTYLIST Work Phone: [facility] [facility] 01-22-2019 Influenza, High-dose Seasonal, Quadrivalent, Preservative Free Loli Rivera ASSISTANT HAIRSTYLIST Work Phone: [facility] 01-22-2019 zoster vaccine recombinant Loli Rivera ASSISTANT HAIRSTYLIST Work Phone: [facility] 01-20-2018 influenza, high dose seasonal, preservative-free Loli Rivera ASSISTANT HAIRSTYLIST Work Phone: [facility] 01-20-2018 influenza, injectabl e, quadrivalent, preservative free Loli Rivera ASSISTANT HAIRSTYLIST Work Phone: [facility] 01-18-2017 influenza, high dose seasonal, preservative-free Loli Rivera ASSISTANT HAIRSTYLIST Work Phone: [facility] 01-18-2017 Influenza, High-dose Seasonal, Quadrivalent, Preservative Free Loli Rivera ASSISTANT HAIRSTYLIST Work Phone: [facility] 01-17-2016 influenza, high dose seasonal, preservative-free Loli Rivera ASSISTANT HAIRSTYLIST Work Phone: [facility] 01-17-2016 pneumococcal conjuga te vaccine, 13 valent Loli Rivera ASSISTANT HAIRSTYLIST Work Phone: [facility] 01-12-2015 influenza, high dose seasonal, preservative-free Loli Rivera ASSISTANT HAIRSTYLIST Work Phone: [facility] 01-11-2014 influenza, high dose seasonal, preservative-free Loli Rivera ASSISTANT HAIRSTYLIST Work Phone: [facility] 02-10-2013 tetanus and diphther ia toxoids, adsorbed, preservative free, for adult use (5 Lf of tetanus toxoid and 2 Lf of diphtheria toxoid) Loli Rivera ASSISTANT HAIRSTYLIST Work Phone: [facility] 02-10-2013 tetanus toxoid, redu jessica diphtheria toxoid, and acellular pertussis vaccine, adsorbed Loli Rivera ASSISTANT HAIRSTYLIST Work Phone: [facility] 02-06-2013 seasonal influenza, intradermal, preservative free Loli Rivera ASSISTANT HAIRSTYLIST Work Phone: [facility] 12-23-2012 zoster vaccine, live Loli W olf ASSISTANT HAIRSTYLIST Work Phone: [facility] 12-12-2012 pneumococcal polysaccharide vaccine, 23 valent Loli Rivera ASSISTANT HAIRSTYLIST Work Phone: [facility] 02-06-2012 influenza, seasonal, injectable, preservative free Loli Rivera ASSISTANT HAIRSTYLIST Work Phone: [facility] 04-17-2004 influenza, seasonal, injectable Loli Rivera ASSISTANT HAIRSTYLIST Work Phone: [facility] 04-27-2003 influenza, seasonal, injectable Loli Rivera ASSISTANT HAIRSTYLIST Work Phone: [facility] 04-27-2002 influenza, seasonal, injectable Loli Rivera ASSISTANT HAIRSTYLIST Work Phone: [facility] 04-01-2001 influenza, seasonal, injectable Loli Rivera ASSISTANT HAIRSTYLIST Work Phone: [facility] 03-08-1999 pneumococcal polysaccharide vaccine, 23 valent Loli Rivera ASSISTANT HAIRSTYLIST Work Phone: [facility] Payers Date Payer Category Payer Private Health Insurance 2021 Medicaid [employer] MEDICARE A DVANTAGE [id number] 2021 Medicare [id number] 2021 Medicare [id number] 1945 Unknown [id number] 2.16.840.1.212269.3.579.2. 1286 1945 Unknown [id number] 2.16.840.1.766214.3.579.2. 1286 1945 Unknown [id number] 2.16.840.1.594399.3.579.2. 196 1945 Unknown [id number] 2.16.840.1.079328.3.579.2. 1945 Unknown [id number] 2.16.840.1.721584.3.579.2. 1945 Unknown [id number] 2.16.840.1.609595.3.579.2. 1945 Unknown [id number] 2.16.840.1.025109.3.579.2. 1258 1945 Unknown [id number] 2.16.840.1.039186.3.579.2. 1258 1945 Unknown [id number] 2.16.840.1.668433.3.579.2. 1258 1945 Unknown [id number] 2..840.1.717352.3.579.2. 1258 1945 Unknown [id number] 2.16.840.1.351044.3.579.2. 1258 1945 Unknown [id number] 2.16.840.1.796629.3.579.2. 1258 1945 Unknown [id number] 2.16.840.1.107060.3.579.2. 1258 1945 Unknown [id number] 2.16.840.1.568278.3.579.2. 1258 1945 Unknown [id number] 2.16.840.1.019814.3.579.2. 1258 1945 Unknown [id number] 2.16.840.1.457319.3.579.2. 1258 1945 Unknown [id number] 2.16.840.1.030320.3.579.2. 125 1945 Unknown [id number] 2.16.840.1.833321.3.579.2. 1259 1945 Unknown [id number] 2.16.840.1.975661.3.579.2. 1259 1945 Unknown [id number] 2.16.840.1.955430.3.579.2. 1259 1945 Unknown [id number] 2.16.840.1.264383.3.579.2. 9 1945 Unknown [id number] 2.16.840.1.071069.3.579.2. 1259 Social History Date Type Detail Facility Start: 05-24-2022 End: 10-10-2022 Tobacco smoking status LAIS Never smoked tobacco [facility] Start: 05-24-2022 [...] partner or ex-partner? No [facility] Attends [employer] Not on file [facility] Do you belong to any clubs or organizations such as buddhism groups, unions, fraternal or athletic groups, or [...] Alcohol intake Current non-drinker of alcohol (finding) [facility] Medical Equipment Procedure Code Equipment Code Equipment Origin al Text Equipment Identifier Dates Lens Iol Ultrase rt 11.5d - [id number] - [id number] Start: 04-03-2018 Lens Iol Ultrase rt 13.0d - [id number] - [id number] Start: 08-28-2018 Head Fem 32mm 0m m Vrsy Cocr Hip Rpl [id number] - [id number] - [id number], [id number] FDA Start: 12-26-2022 Screw Bn 15mm 6. [address]mm [address] Hip Actb Trlg Strl Rpl [id number] - Sna - [id number] Start: 12-26-2022 Goals Date Patient Goal Desired Activity /State Personal health goal Comment on above: Formatting of this n ote might be different from the original. Evaluation of progress towards goal: Home with support from friend (staying with pt) and [facility] Ortho PT 360 Functional Status Date Assessment Result Facility 10-16-2024 Patient Health Quest ionnaire 2 item (PHQ-2) [Reported] [facility] Clinical Notes 06-05-2023 to 11-17-2024 Lisandra Jimenez [...] months from now. documented in this encounter [facility] 11-16-2024 Telephone encounter Note Vm was left: [...] you can give her a call back [phone], thanks. [facility] 11-16-2024 Miscellaneous Notes Vm was left: Wa, my name is Teresa Hadley. I am calling for Marck Maria birthday [birth year]. She has been in to you a few times recently and she just finished her antibiotic a few days ago and she is still having some burning. Um, so I just wanted to relay that message to Dr Jimenez. Um, you can give her a call back [phone], thanks. documented in this encounter [facility] 11-06-2024 Telephone encounter Note Hi, I am calling for Tr Maria. She was just in had some problems with ta UTI They prescribed an antibiotic and she is still having trouble today So I think it is coming back. If you could call back to her house number [phone], we would appreciate it. Thank you. [facility] 11-06-2024 Miscellaneous Notes Hi, I am calling for Tr Maria. She was just in had some problems with ta UTI They prescribed an antibiotic and she is still having trouble today So I think it is coming back. If you could call back to her house number [phone], we would appreciate it. Thank you. documented in this encounter [facility] 10-16-2024 History of Present illness Narrative Images [...] her Fosamax medication. She is currently taking gcee-swt-hmgvbyr iron supplements for iron deficiency anemia. 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 She is not seeing orthopedics [...] or more days a week?: Yes (does [employer] sneakers class) How confident are you that [...] independence. Living will and durable power of traffic law attorney reviewed Routine general medical examination at [...] sooner if needed. documented in this encounter [facility] 10-08-2024 Telephone encounter Note Patient calling back- symptoms have improved and she is doing better. She started the antibiotic yesterday. [facility] 10-08-2024 Miscellaneous Notes Patient calling back- symptoms have improved and she is doing better. She started the antibiotic yesterday. Ask patient if her symptoms have improved documented in this encounter [facility] 10-08-2024 Progress note Formatting of t his note might be different from the original. Ask patient if her symptoms have improved [facility] 10-06-2024 History of Present illness Narrative Images [...] for 10 days. documented in this encounter [facility] 05-11-2024 History of Present illness Narrative Images [...] physical therapy. She used to participate in [employer] classes, which included weightlifting, but discontinued this [...] in weight-bearing exercises, such as resuming her [employer] classes, to stimulate bone health. A bone density test will be scheduled to monitor her condition. PROCEDURE The patient underwent hip replacement surgery approximately 2 years ago. documented in this encounter [facility] 05-05-2024 Telephone encounter Note Voicemail left at 3:55 pm. I left her a to schedule an appt. Wa, this is Marck Maria for 45. I [...] why that is happening. So it is [phone] Neri Maria [id number]. Thank you very much. Peter lemus. [facility] 05-05-2024 Miscellaneous Notes Voicemail left at 3:55 pm. I left her a vm to schedule an appt. Wa, this is Marck Maria for 45. I [...] why that is happening. So it is [phone] Neri Maria [id number]. Thank you very much. Peter lemus. documented in this encounter [facility] 03-03-2024 Telephone encounter Note Approvals with refills [facility] 03-03-2024 Miscellaneous Notes Approvals with refills documented in this encounter [facility] 02-03-2024 History of Present illness Narrative [...] challenging. She also consumes iced coffee from [employer]. SUBJECTIVE: MEDICATIONS: Current Outpatient Medications Medication Instructions [...] good preventative measure. documented in this encounter [facility] 01-10-2024 History of Present illness Narrative [...] follow-ups on file. documented in this encounter [facility] 01-07-2024 History of Present illness Narrative Marck [...] Orders Flu vaccine, high dose seasonal, PF (RON218) (Fluzone High Dose) Urinary incontinence, unspecified type Relevant Orders POCT Urinalysis dipstick D.c sugary ice coffees documented in this encounter [facility] 08-02-2023 Miscellaneous Notes Received a phone call from [facility] for patient records to be transferred. documented in this encounter [facility] 08-02-2023 Telephone encounter Note Received a phone call from [facility] for patient records to be transferred. [facility] 06-11-2023 Telephone encounter Note PT Calling to check status of this request, unsure as how to explain the denial of the refill. [facility] 06-11-2023 Miscellaneous Notes PT Calling to check status of this request, unsure as how to explain the denial of the refill. Medication refused due to failing protocol. Requested Prescriptions Pending Prescriptions Disp Refills methylPREDNISolone (Medrol Dospak) 4 MG tablets 21 tablet Sig: Follow schedule on package instructions There is no refill protocol information for this order documented in this encounter [facility] 06-11-2023 Telephone encounter Note Medication refused due to failing protocol. Requested Prescriptions Pending Prescriptions Disp Refills methylPREDNISolone (Medrol Dospak) 4 MG tablets 21 tablet Sig: Follow schedule on package instructions There is no refill protocol information for this order [facility] 06-10-2023 History of Present illness Narrative [...] Recheck in 6months documented in this encounter [facility] 06-05-2023 History of Present illness Narrative [...] fractures identified. Impression: Severe scoliosis Corwin Lui DSudhri Assessment/Plan Encounter Diagnoses: ICD-10-CM 1. S/P total [...] anemia Age-related osteoporosis without current pathological fracture ([facility]/H[facility]) [facility] cystitis with hematuria documented in this encounter [facility] HealthcareEvaluation note* Diagnosis Medicare annual wellness visit, subsequent- Primary Routine general medical examination at a health care facility Age-related osteoporosis without current pathological fracture Gastroesophageal reflux disease without esophagitis Esophageal reflux Primary osteoarthritis of left hip Iron deficiency anemia, unspecified iron deficiency anemia type Neoplasm of unspecified behavior of bone, soft tissue, and skin documented in this encounter [facility] HealthcareEvaluation note* Diagnosis Dysuria- Primary Acute cystitis with hematuria- Primary documented in this encounter [facility] HealthcareEvaluation note* Diagnosis Atrophic vaginitis- Primary Postmenopausal atrophic vaginitis Dysuria documented in this encounter [facility]ructions[facility] on [facility] Purpose Family History No Family History Records FoundNo Family History Records FoundNo Family History Records FoundNo Family History Records Found Advance Directives Documents on File Type Date Recorded Patient Merchandise Flow Team Member Expl anation Living Will 01/17/2023 11:55 AM Durable Power of [employer]iodies[employer] Technology Manager 01/17/2023 11:54 AM Latest Code Status on File Code Status Date Activated Date Inactivated Comments Full Code 12/28/2022 6:14 PM 01/01/2023 3:49 PM Code Status History Code Status Date Activated Date Inactivated Comments Full Code 12/26/2022 10:18 AM 12/27/2022 7:36 PM Additional Source Comments INFORMATION SOURCE (unrecogn ized section and content) DATE CREATED AUTHOR 04/10/2021 [facility] dical Specialist DATE CREATED AUTHOR AUTHOR'S ORGANIZ ATION 01/13/2024 [facility] DATE CREATED AUTHOR AUTHOR'S ORGANIZ ATION 10/21/2024 [facility] DATE CREATED AUTHOR AUTHOR'S ORGANIZ ATION 11/18/2024 [facility] dical Specialists EPIC Reason for Visit (unrecogniz ed section and content) Reason Comments Med Refill Reason Comments Medicare Annual Wellness Visit Subsequen t Reason Comments Follow-up Patient here for [facility] follow up. She was in the [...] Reason Onset Date Comments Records, transfer to [facility] 08/02/2023 Reason Comments UTI Reason Comments Medicare Annual Wellness Visit Subsequen t Dry skin Face, dry patches Reason Comments Urinary Problem Burning with urinati on, negative culture. Care Teams (unrecognized sec tion and content) Head Sampler Relationship Specialty Start Date End Date Benji Cantrell MD [address] [facility] [address] [place] [address] PCP - [employer] 04/29/22 Lisandra Jimenez MD [address] [place] [address] PCP - General Family Medicine 09/10/22 Head Sampler Relationship Specialty Start Date End Date Benji Cantrell MD [address] [facility] [address] [place] [address] PCP - [employer] 04/29/22 Lisandra Jimenez MD [address] [place] [address] PCP - General Family Medicine 09/10/22 Head Sampler Relationship Specialty Start Date End Date Benji Cantrell MD [address] [place] [address] PCP - [employer] 04/29/22 Lisandra Jimenez MD [address] [place] [facility] [place] [address] PCP - General Family Medicine 09/10/22 Head Sampler Relationship Specialty Start Date End Date Benji Cantrell MD [address] [place] [address] PCP - [employer] 04/29/22 Lisandra Jimenez MD [address] [place] [facility] [place] [address] PCP - General Family Medicine 09/10/22 Head Sampler Relationship Specialty Start Date End Date Benji Cantrell MD [address] [place] [address] PCP - [employer] 04/29/22 Lisandra Jimenez MD [address] [place] [facility] [place] [address] PCP - General Family Medicine 09/10/22 Head Sampler Relationship Specialty Start Date End Date Benji Cantrell MD [address] [place] [address] PCP - [employer] 04/29/21 Lisandra Jimenez MD [address] [facility] [place] [address] PCP - General Family Medicine 09/10/22 Head Sampler Relationship Specialty Start Date End Date Benji Cantrell MD [address] [facility] [address] [place] [address] PCP - [employer] 04/29/21 Lisandra Jimenez MD [address] [place] [address] PCP - General Family Medicine 09/10/22 Head Sampler Relationship Specialty Start Date End Date Benji Cantrell MD [address] [facility] [address] [place] [address] PCP - [employer] 04/29/21 Lisandra Jimenez MD [address] [place] [address] PCP - General Family Medicine 09/10/22 Head Sampler Relationship Specialty Start Date End Date Benji Cantrell MD [address] [facility] [address] [place] [address] PCP - [employer] 04/29/21 Lisandra Jimenez MD [address] [facility] [place] [address] PCP - General Family Medicine 09/10/22 Head Sampler Relationship Specialty Start Date End Date Benji Cantrell MD [address] [facility] [address] [place] [address] PCP - [employer] 04/29/21 Lisandra Jimenez MD [address] [place] [address] PCP - General Family Medicine 09/10/22 Head Sampler Relationship Specialty Start Date End Date Benji Cantrell MD [address] [facility] [address] [place] [address] PCP - [employer] 04/29/21 Lisandra Jimenez MD [address] [place] [address] PCP - General Family Medicine 09/10/22 Head Sampler Relationship Specialty Start Date End Date Benji Cantrell MD [address] [facility] [address] [place] [address] PCP - [employer] 04/29/21 Lisandra Jimenez MD [address] [place] [address] PCP - General Family Medicine 09/10/22 Head Sampler Relationship Specialty Start Date End Date Benji Cantrell MD [address] [facility] [address] [place] [address] PCP - [employer] 04/29/21 Lisandra Jimenez MD [address] [place] [facility] [place] [address] PCP - General Family Medicine 09/10/22 Head Sampler Relationship Specialty Start Date End Date Benji Cantrell MD [address] [facility] [address] [place] [address] PCP - [employer] 04/29/21 Lisandra Jimenez MD [address] [place] [address] PCP - General Family Medicine 09/10/22 Head Sampler Relationship Specialty Start Date End Date Benji Cantrell MD [address] [facility] [address] [place] [address] PCP - [employer] 04/29/21 Lisandra Jimenez MD [address] [place] [facility] [place] [address] PCP - General Family Medicine 09/10/22 Head Sampler Relationship Specialty Start Date End Date Lisandra Jimenez MD [address] [facility] [place] [address] PCP - General Family Medicine 11/12/16 Head Sampler Relationship Specialty Start Date End Date Benji Cantrell MD [address] [facility] [address] [place] [address] PCP - [employer] 04/29/21 Lisandra Jimenez MD [address] [place] [address] PCP - General Family Medicine 09/10/22 Head Sampler Relationship Specialty Start Date End Date Benji Cantrell MD [address] [facility] [address] [place] [address] PCP - [employer] 04/29/21 Lisandra Jimenez MD [address] [place] [address] PCP - General Family Medicine 09/10/22 Head Sampler Relationship Specialty Start Date End Date Benji Cantrell MD [address] [facility] [address] [place] [address] PCP - [employer] 04/29/21 Lisandra Jimenez MD [address] [place] [address] PCP - General Family Medicine 09/10/22 FOR [...] BE BASED ON THE PRIMARY CLINICAL RECORDS. [facility]. provides no warranty or guarantee of the accuracy or completeness of information in this document.
[2025-01-04 13:06] VITALS: BP 143/77; PULSE 80; TEMP 36; O2SAT 94
[2025-01-04 13:48] VITALS: BP 153/82; PULSE 78; O2SAT 95
[2025-01-04 13:49] VITALS: BP 150/73; PULSE 79; O2SAT 96
[2025-01-04] MEDS: 0.9 % SODIUM CHLORIDE 10 ML SYRINGE - SALINE FLUSH INJ (13:51)
[2025-01-04] MEDS: BUPIVACAINE HCL 0.25% PF 25 MG/10 ML VIAL INJ (13:52)
[2025-01-04] MEDS: LIDOCAINE HCL 2% 400 MG/20 ML MDV INJ (13:52)
[2025-01-04] MEDS: IOHEXOL 240 MG/ML - 10 ML VIAL 12 MG INJ (13:52)
[2025-01-04] MEDS: DEXAMETHASONE SOD PHOS 10 MG/ML VIAL INJ (13:52)
--- NOTE | 2025-01-04 13:55 | P.ON_ITS ---
Date of procedure: 01/04/25 Pre-op diagnosis: Pain due to lumbar stenosis with neurogenic claudication Post-op diagnosis: same as pre-op Procedure: Procedure: Left L2-3, L3-4 transforaminal epidural steroid injection Medications: Bupivacaine 0.25% 2cc, lidocaine 2% 1cc, dexamethasone 10mg The patient was seen and examined in the preoperative holding area.? Informed consent was obtained and placed on the chart.? Patient was brought to the medical procedure unit and placed in the prone position where a timeout was completed verifying the correct patient, procedure site, position, and planned special equipment using sterile aseptic technique.? Under direct fluoroscopic visualization a 25-gauge Quincke tipped spinal needle was advanced to the designated neural foramen where contrast dye was injected to show adequate spread.? The needle was inserted at level left L2-3. There was no evidence of vascular or adverse uptake.? Epidural spread was appreciated.? The above- mentioned injectate was then placed in a 1.5 mL aliquot preceded by negative aspiration.? The needle was removed. The needle was inserted and the procedure repeated at level left L3-4.? The surgery site was covered.? Patient was taken to the postprocedural recovery area and monitored for an appropriate length of time before found suitable for discharge in the accompaniment of a responsible adult. Anesthesia: Local Surgeon: Mere Woodard Pathology: none sent Condition: stable Disposition: no change
== END 2025-01-04 14:01 | disposition home or self-care (01) ==
LOC: SURGOUT 09:46
PROVIDERS: PCP Family Medicine; Visit Provider Anesthesiology
DX: M48.062 Spinal stenosis, lumbar region with neurogenic claudication (principal); M54.50 Low back pain, unspecified
CPT/HCPCS: 64483; 64484; J0665; J1100; Q9966

== ENCOUNTER 2025-01-14 10:39 | Outpatient (OUT) | payer MEDICARE, SELFPAY ==
--- OUTSIDE RECORDS SUMMARY | 2025-01-14 10:43 | XMS_ITS | Encounter Summary ---
Author Organization [facility] Address [address] [facility] [place] [address] Care Team Providers Care Aircraft Machinist Name Role Phone Benji Cantrell MD Unavailable [phone] Lisandra Ames MD Primary Care Provider Encounter Details Date Type Department Care Team [...] than three times a week 12/10/2022 Attends Sabianism Services Not on file 12/10 Do you belong to any clubs o r organizations such as muslim groups, unions, fraternal or athletic groups, or [...] place to sleep or slept in a jail (including now)? No 12/10/2022 Comments Unknown Sex and Gender Information Value Date Recorded Sex Assigned at Not on file Legal Sex Female 7:21 PM EDT Gender Identity Female 07/11/2022 7:21 PM EDT Sexual Orientation Not on file documented as of this encounter Plan of Treatment Upcoming Encounters Date Type Department Care Team (Late st Contact Info) Description 02/17/2025 10:00 AM EDT Office Visit [facility] Medicine [address] [place] [address] Mena Purvis NP [address] [place], [place] [id number] documented as of this encounter Procedures Procedure Name Priority Date/Time Associated Diagnosis Comments MR LUMBAR SPINE WO CON 08/26/2023 3:58 PM EDT documented in this encounter Results * MR LUMBAR SPINE WO CON (08/26/2023 3:58 PM EDT) Anatomical Region Laterality Modality Other 08/26/2023 3:58 PM EDT Narrative 08/26/2023 4:00 PM EDT [address] [address] Magnetic Resonance Report Signed Patient: NIKKY GUTIERREZ MR#: [id number] : 1945 Acct:[id number] Age/Sex: 78 / F ADM Date: 08/26/23 Loc: MRI Attending Dr: Mere Woodard M.D. Ordering Physician: Mere Woodard M.D. Date of Service: 08/26/23 Procedure(s): MR lumbar spine wo con Accession Number(s): [id number] cc: LISANDRA AMES Andrius M.D. [address] [address] Patient Name: NIKKY GUTIERREZ MRN: [id number] date: 1945 Sex: F Assigned Patient Location: MRI Current Patient Location: MRI Accession/Order Number: [id number] Exam Date: 08/26/2023 14:42 Report Date: 08/26/2023 [...] Signed By: 08/26/23 1600 DD/ 1558 TD/TT: Service Center Supervisor: Procedure Note Radiology, Radiologist, - 08/26/2023 [facility] [place] [id number] Magnetic Resonance Report Signed Patient: MYRIAM GUTIERREZ#: [id number] : 6Acct:[id number] Age/Sex: 78 / FADM Date: 08/26/23 Loc: MRI Attending Dr: eMre Woodard M.D. Ordering Physician: Mere Woodard M.D. Date of Service: 08/26/23 Procedure(s): MR lumbar spine wo con Accession Number(s): [id number] cc: LISANDRA AMES ; Mere Woodard M.D. [place] [address] Patient Name: NIKKY GUTIERREZ MRN: [facility]:[id number] date: 1945 Sex: F Assigned Patient Location: MRI Current Patient Location: MRI Accession/Order Number: [id number] Exam Date: 08/26/2023 14:42 Report Date: 08/26/2023 [...] M.D. Signed By:08/26/23 1600 DD/ 1558 TD/TT: Service Center Supervisor: us Generic External Data Provider [facility] Final Result documented in this encounter Visit Diagnoses Not on filedocumented in this encounter Additional Health Concerns Assessment Noted Time PHQ-9 Depression Total Score: 0 06/10/19 24 10:00 AM EST documented as of this encounter Care Teams Aircraft Machinist Relationship Specialty Start Date End Date Benji Cantrell MD [address] [place] [address] PCP - [employer] 04/29/21 Lisandra Ames MD [address] [place] [address] PCP - General Family Medicine 09/10/22 documented as of this encounter
--- OUTSIDE RECORDS SUMMARY | 2025-01-14 10:43 | XMS_ITS | Encounter Summary ---
Author Organization [facility] Healthcare Address [address] [facility] [place] [address] Care Team Providers Care Residential Property Consultant Name Role Phone Benji Cantrell MD Unavailable [phone] Lisandra Jimenez MD Primary Care Provider [phone] Encounter Details Date Type Department Care Team (Latest Contact Info) Description 10/19/2024 Results Follow-Up [facility] Family Medicine [address] [place] [address] Mena Purvis NP [address] [place] [address] CBC and differential, Comprehensive metabolic [...] any clubs o r organizations such as restorationist groups, unions, fraternal or athletic groups, or [...] place to sleep or slept in a snf (including now)? No 12/10/2022 Comments Unknown Sex and Gender Information Value Date Recorded Sex Assigned at Not on file Legal Sex Female 7:21 PM EDT Gender Identity Female 07/11/2022 7:21 PM EDT Sexual Orientation Not on file documented as of this encounter Plan of Treatment Upcoming Encounters Date Type Department Care Team (Late st Contact Info) Description 02/17/2025 10:00 AM EDT Office Visit [facility] [address] [place] [phone] Mena Purvis NP [address] [place], [place] [phone] documented as of this encounter Visit Diagnoses Not on filedocumented in this encounter Additional Health Concerns Assessment Noted Time PHQ-9 Depression Total Score: 0 10/17/19 25 2:00 PM EDT documented as of this encounter Care Teams Residential Property Consultant Relationship Specialty Start Date End Date Benji Cantrell MD [address] [facility] [address] [place] [address] PCP - [employer] 04/29/21 Lisandra Jimenez MD [address] [place], [place] [address] PCP - General Family Medicine 09/10/22 documented as of this encounter
--- OUTSIDE RECORDS SUMMARY | 2025-01-14 10:43 | XMS_ITS | Encounter Summary ---
Author Organization [facility] Address [address] [facility] [place] [address] Care Team Providers Care Outpatient Receptionist Name Role Phone Benji Cantrell MD Unavailable [phone] Lisandra Jimenez MD Primary Care Provider [phone] Encounter Details Date Type Department Care Team (Late st Contact Info) Description 01/02/2023 Abstract [facility] Family Medicine [address] [place] [address] Lisandra Jimenez MD [address] [place], [place] [phone] Social History Tobacco Use Types Packs/Day Years [...] than three times a week 12/10/2022 Attends Alevism Services Not on file 12/10 Do you belong to any clubs o r organizations such as baptism groups, unions, fraternal or athletic groups, or [...] Description 02/17/2025 10:00 AM EDT [facility] [place] [facility] [address] [place] [address] Mena Purvis NP [address] [place], [place] [phone] documented as of this encounter Visit Diagnoses Not on filedocumented in this encounter Care Teams Outpatient Receptionist Relationship Specialty Start Date End Date Benji Cantrell MD [address] [facility] [address] [place] [address] PCP - [employer] 04/29/21 Lisandra Jimenez MD [address] [place], [place] [phone] PCP - General Family Medicine 09/10/22 documented as of this encounter
--- OUTSIDE RECORDS SUMMARY | 2025-01-14 10:43 | XMS_ITS | Encounter Summary ---
Author Organization [facility] Address [address] [facility] [place] [address] Care Team Providers Care Pumper Brewery Name Role Phone Benji Cantrell MD Unavailable [phone] Lisandra Jimenez MD Primary Care Provider [phone] Encounter Details Date Type Department Care Team (Late st Contact Info) Description 06/04/2023 Abstract [facility] [address] [place] [address] Linda Robins NP Social History Tobacco Use [...] than three times a week 12/10/2022 Attends Baptist Services Not on file 12/10 Do you belong to any clubs o r organizations such as worship groups, unions, fraternal [...] place to sleep or slept in a senior care (including now)? No 12/10/2022 Comments Unknown Sex [...] Office Visit [facility] [address] [place] [address] Mena Purvis NP [address] [place], [place] [phone] documented as of this encounter Visit Diagnoses Not on filedocumented in this encounter Care Teams Pumper Brewery Relationship Specialty Start Date End Date Benji Cantrell MD [address] [facility] [address] [place] [address] PCP - [employer] 04/29/21 Lisandra Jimenez MD [address] [place], [place] [phone] PCP - General Family Medicine 09/10/22 documented as of this encounter
--- OUTSIDE RECORDS SUMMARY | 2025-01-14 10:43 | XMS_ITS | Encounter Summary ---
Author Organization [facility] Address [address] [facility] [place] [address] Care Team Providers Care Engine Assembly Supervisor Name Role Phone Benji Cantrell MD Unavailable [phone] Lisandra Jimenez MD Primary Care Provider [phone] Encounter Details Date Type Department Care Team (Late st Contact Info) Description 12/09/2022 Abstract [facility] Family Medicine [address] [place] [address] Lisandra Jimenez MD [address] [place], [place] [id number] Social History Tobacco Use Types Packs/Day Years [...] than three times a week 12/10/2022 Attends Spiritism Services Not on file 12/10 Do you belong to any clubs o r organizations such as protestant groups, unions, fraternal or athletic groups, or [...] Description 02/17/2025 10:00 AM EDT Office Visit [facility] [address] [place] [address] Mena Purvis NP [address] [place] [address] documented as of this encounter Visit Diagnoses Not on filedocumented in this encounter Care Teams Engine Assembly Supervisor Relationship Specialty Start Date End Date Benji Cantrell MD [address] [place] [address] PCP - [employer] 04/29/21 Lisandra Jimenez MD [address] [place], [place] [address] PCP - General Family Medicine 09/10/22 documented as of this encounter
--- OUTSIDE RECORDS SUMMARY | 2025-01-14 10:43 | XMS_ITS | Clinical Summary ---
Author Organization [facility] Address [address] [place] [address], [address] [place] [address] Care Team Providers Care Automotive Electrician Helper Name Role Phone Lisandra Jimenez MD Primary Care Provider [phone] Social History Tobacco Use Types Packs/Day Years Used Date Smoking Tobacco: Never Assessed Comments Unknown Sex and Gender Information Value Date Recorded Sex Assigned at Not on file Legal Sex Female 1:55 PM EST Gender Identity Not on file Sexual Orientation Not on file Plan of Treatment Not on file Insurance AETNA MEDICARE Care Teams Automotive Electrician Helper Relationship Specialty Start Date End Date Lisandra Jimenez MD [address] [place] [address] PCP - General 10/15/22
--- OUTSIDE RECORDS SUMMARY | 2025-01-14 10:43 | XMS_ITS | Clinical Summary ---
Author Organization [email or web address] Address [id number] [address] [place] [address] Care Team Providers Care Pipelines Manager Name Role Phone Lisandra Jimenez MD Primary Care Provider [phone] Allergies Active Allergy Reactions Criticality Noted Date [...] (04/05/2022): Added automatically from request for surgery [id number] Acquired hammer toe of right foot 02/22/2022 [...] drink = 0.6 oz pur e alcohol) [facility] Utilities Answer Date Recorded In the past 12 months has e [employer], gas, oil, or water [employer] threatened to shut off services in your [...] or Tdap) 02/10/2023 02/10/2013, 02/10/2013 COVID-19 Vaccine (2024-2 6 season) 2024 04/07/2023, 02/06/2022, 07/28/2021, Additional history exists Influenza [...] PT 360 Medical Devices Implanted Type Area Group Therapy Counselor Device Identifier Shelf Expiration Date Model / Serial / Lot Lens Iol Ultrasert 11.5d - [id number] - [id number] Implanted:Qt y: 1 on 04/03/2018 by Marcia Rodriguez MD at [facility] Lens Left: Eye [employer] 02/27/2020 AU00T0 11.5 / [id number] / NA Lens Iol Ultrasert 13.0d - [id number] - [id number] Implanted:Qt y: 1 on 08/28/2018 by Marcia Rodriguez MD at [facility] Lens Right: Eye [employer] 09/26/2020 AU00T0 13.0 / [id number] / NA Shell Actb 48mm Hip 3 Hl Clr Cd [place] G7 C Hmsphr - Sna - [id number] Implanted:Qt y: 1 on 12/26/2022 by Andrea Lui DO at [facility] Orthopedic Implant Left: Hip [employer] 12/21/2031 [id number] / NA / [id number] Liner Actb 32mm C Vivacit-E Lum G7 Hip Strl Lf - Sna - [id number] Implanted:Qt y: 1 on 12/26/2022 by Andrea Lui DO at [facility] Orthopedic Implant Left: Hip [employer] 03/11/2027 [id number] / NA / [id number] Stem Fem 137d 1 04/11 37mm Fitmore Protasul-64 Hip Rgh Blast - Sna - [id number] Implanted:Qt y: 1 on 12/26/2022 by Andrea Lui DO at [facility] Orthopedic Implant Left: Hip [employer] 05/29/2030 [id number] / NA / [id number] Head Fem 32mm 0mm Vrsy Cocr Hip Rpl [id number]+[id number] 5 - [id number] - [id number] Implanted:Qt y: 1 on 12/26/2022 by Andrea Lui DO at [facility] Orthopedic Implant Left: Hip [employer] [id number] 03/28/2026 [id number] / [id number] / [id number] Screw Bn 30mm 6.5mm St Actb Grady Trlg Strl Rpl [id number] - Sna - [id number] Implanted:Qt y: 1 on 12/26/2022 by Andrea Lui DO at [facility] Screw Left: Hip [employer] 07/23/2032 [id number] / NA / [id number] Screw Bn 25mm 6.5mm St Hip Trlg Strl Rpl [id number] - Sna - [id number] Implanted:Qt y: 1 on 12/26/2022 by Andrea Lui DO at [facility] Screw Left: Hip [employer] 08/21/2032 [id number] / NA / [id number] Screw Bn 15mm 6.5mm St Hip Actb Trlg Strl Rpl [id number]+53716 2 - Sna - [id number] Implanted:Qt y: 1 on 12/26/2022 by Andrea Lui DO at [facility] Screw Left: Hip [employer] 05/23/2032 [id number] / NA / [id number] Insurance AETNA MEDICARE Advance Directives Documents on File Type Date Recorded 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
--- OUTSIDE RECORDS SUMMARY | 2025-01-14 10:43 | XMS_ITS | Encounter Summary ---
Author Organization [facility] Address [address] [facility] [place] [address] Care Team Providers Care Commissions Manager Name Role Phone Benji Cantrell MD Unavailable [phone] Lisandra Jimenez MD Primary Care Provider [phone] Encounter Details Date Type Department Care Team (Late st Contact Info) Description 01/07/2023 Abstract [facility] Family Medicine [address] [place] [address] Lisandra Jimenez MD [address] [place], [place] [phone] Social History Tobacco Use Types Packs/Day Years [...] any clubs o r organizations such as jain groups, unions, fraternal or athletic groups, or [...] place to sleep or slept in a penitentiary (including now)? No 12/10/2022 Comments Unknown Sex and Gender Information Value Date Recorded Sex Assigned at Not on file Legal Sex Female 7:21 PM EDT Gender Identity Female 07/11/2022 7:21 PM EDT Sexual Orientation Not on file documented as of this encounter Plan of Treatment Upcoming Encounters Date Type Department Care Team (Late st Contact Info) Description 02/17/2025 10:00 AM EDT [facility] [address] [place] [address] Mena Purvis NP [address] [place], [place] [address] documented as of this encounter Visit Diagnoses Not on filedocumented in this encounter Care Teams Commissions Manager Relationship Specialty Start Date End Date Benji Cantrell MD [address] [facility] [address] [place] [address] PCP - [employer] 04/29/21 Lisandra Jimenez MD [address] [place], [place] [address] PCP - General Family Medicine 09/10/22 documented as of this encounter
--- OUTSIDE RECORDS SUMMARY | 2025-01-14 10:43 | XMS_ITS | Encounter Summary ---
Author Organization [facility] Healthcare Address [address] [place] [address] Care Team Providers Care Station Engineer Name Role Phone Benji Cantrell MD Unavailable [phone] Lisandra Jimenez MD Primary Care Provider [phone] Encounter Details Date Type Department Care Team (Late st Contact Info) Description 11/19/2024 Results Follow-Up [facility] Medicine [address] [place] [address] Lisandra Jimenez MD [address] [place] [address] POCT Urinalysis dipstick, Urine culture [...] than three times a week 12/10/2022 Attends Mosque Services Not on file 12/10 Do you belong to any clubs o r organizations such as amish groups, unions, fraDomino Magazine or athletic groups, or school groups? Yes [...] to sleep or slept in a senior living (including now)? No 12/10/2022 Comments Unknown Sex [...] Office Visit [facility] [address] [place] [address] Mena Purvis NP [address] [place], [place] [address] documented as of this encounter Visit Diagnoses Not on filedocumented in this encounter Additional Health Concerns Assessment Noted Time PHQ-9 Depression Total Score: 0 10/17/19 25 2:00 PM EDT documented as of this encounter Care Teams Station Engineer Relationship Specialty Start Date End Date Benji Cantrell MD [address] [facility] [address] [place] [address] PCP - [employer] 04/29/21 Lisandra Jimenez MD [address] [place], [place] [phone] PCP - General Family Medicine 09/10/22 documented as of this encounter
--- OUTSIDE RECORDS SUMMARY | 2025-01-14 10:43 | XMS_ITS | Clinical Summary ---
Author Organization [facility] Address [address] [place] [address] Care Team Providers Care Cra Name Role Phone Benji Cantrell MD Unavailable [phone] Lisandra Jimenez MD Primary Care Provider [phone] Allergies Active Allergy Reactions Criticality Noted Date [...] 3 Active fluticasone (Flonase) 50 MCG/ACT nasal sprayIndications: Postnasal discharge USE 2 SPRAYS IN EACH NOSTRIL ONCE A DAY 48 mL 3 4 Active docusate sodium (Colace) 100 MG capsule Take 100 mg by mouth in the morning and 100 mg before bedtime. Active benzonatate (Tessalon) 100 MG capsule Take 100 mg by mouth 3 (three) times a day as needed 4 Active famotidine (Pepcid) 20 MG tabletIndications :Gastroesophageal reflux disease without esophagitis Take 1 tablet (20 mg) by mouth Daily 90 tablet 11 4 Active tolterodine LA (Detrol LA) 2 MG 24 hr capsuleIndication s:Mixed stress and urge urinary incontinence Take 1 capsule (2 mg) by mouth Daily Do not crush, chew, or split. 90 capsule 3 4 03/03/20 25 Active metoprolol tartrate (Lopressor) 25 MG tabletIndications :Tachycardia Take 1 tablet (25 mg) by mouth in the morning and 1 tablet (25 mg) before bedtime. 180 tablet 11 4 02/17/20 27 Active alendronate (Fosamax) 70 MG tabletIndications :Age-related osteoporosis without current pathological fracture Take 1 tablet (70 mg) by mouth every 7 (seven) days Take in the morning with a full glass of water, on an empty stomach, and do not take anything else by mouth or lie down for the next 30 min. 12 tablet 11 4 Active celecoxib (CeleBREX) 200 MG capsule 4 Active estradiol (Estrace) 0.1 MG/GM vaginal creamIndications: Atrophic vaginitis Apply peasized amount to vagina nightly for 1 week then every Saturday//Saturday. 42.5 g 5 5 11/18/19 26 Active Active Problems Problem Noted Date Diagnosed [...] disease, lumbar 10/10/2022 GERD (gastroesophageal reflux disease) 3 Lumbosacral spondylosis without myelopathy 10/10 Disorder of sacrum 04/05/2022 Overview (11/29/2022): Added automatically from request for surgery [id number] Arthritis 02/22/2022 Other idiopathic scoliosis, thoracolumbar region 02/22/2022 Thoracic spondylosis without myelopathy 02/23/20 Age related osteoporosis 02/22/2022 Degeneration of lumbar intervertebral disc 02/22 Gastroesophageal reflux disease 02/22/2022 Arthritis of left hip 02/22/2022 Encounters Date Type Department Care Team Description 11/19/2024 Results Follow-Up [facility] [address] [facility] [place] [address] Lisandra Jimenez MD POCT Urinalysis dipstick, Urine culture (clean catch), Urinalysis with reflex microscopic (clean catch), NOTE 11/17/2024 10:00 AM EDT Office Visit [place] [address] [place] [phone] Lisandra Jimenez MD Atrophic vaginitis (Primary Dx); Dysuria 11/17/2024 Bamboo flowsheet [place] [address] [place] [phone] Lisandra Jimenez MD 11/17/2024 Travel 11/16/2024 Telephone [place] [address] [facility] [address] Lisandra Jimenez MD 11/09/2024 Results Follow-Up [place] [address] [place] [address] Gisell Rodriguez NP POCT Urinalysis dipstick, Urine culture (clean catch) 11/06/2024 4:00 PM EDT Clinical Support [place] [address] [facility] [place] [phone] Dysuria (Primary Dx) 11/06/2024 Orders Only [address] [place] [phone] Gisell Rodriguez NP Acute cystitis with hematuria (Primary Dx) 11/06/2024 Travel 11/06/2024 Telephone [place] [address] [place] [phone] Lisandra Jimenez MD 10/19/2024 Results Follow-Up [facility] [address] [place] [address] Mena Purvis NP CBC and differential, Comprehensive metabolic panel, Vitamin D 25 hydroxy 10/16/2024 2:30 PM EDT Office Visit [facility] [address] [facility] [place] [address] Mena Purvis NP Medicare annual wellness visit, subsequent (Primary Dx); Routine general medical examination at a health care facility; Age-related osteoporosis without current pathological fracture ; Gastroesophageal reflux disease without esophagitis; Primary osteoarthritis of left hip; Iron deficiency anemia, unspecified iron deficiency anemia type; Neoplasm of unspecified behavior of bone, soft tissue, and skin 10/16/2024 Bamboo flowsheet [facility] [address] [facility] [place] [phone] Mena Purvis NP 10/16/2024 Travel from Last 3 Months Immunizations Immunization Administration [...] than three times a week 12/10/2022 Attends Holiness Services Not on file 12/10 Do you belong to any clubs o r organizations such as holiness groups, unions, fraternal or athletic groups, or [...] place to sleep or slept in a [place] facility (including now)? No 12/10/2022 Comments Unknown Sex [...] Office Visit [facility] [address] [place] [address] Mena Purvis NP [address] [place] [address] Health Maintenance Due Date Last Done Comments Influenza Vaccine (#1) 2024 , 01/28/2023, 02/06/2022, Additional history exists Medicare Annual Wellness (AWV) 10/16/2025 0 10/16/2024, 10/16/2024, 06/10/2023, Additional history exists Pneumococcal Vaccine: 65+ [...] deficiency anemia, unspecified iron deficiency anemia type from Last 3 Months Results * NOTE (11/17/2024 10:34 AM EDT) NOTE [facility] Comment: This urine was analyzed for the presence of WBC, RBC, bacteria, casts, and other formed elements. Only those elements seen were reported. 11/17/2024 10:3 4 AM EDT 11/17/2024 10:35 AM EDT Narrative Resulting Agency Comment Performing Organization Information Site ID: QPT Name: [facility] Address: [address] [place] [address], [address] [place] [phone] Director: Mahad Gonzalez MD Lisandra Jimenez MD [facility] Final Result [facility] * (ABNORMAL) Urinalysis with reflex microscopic [...] Performing Organization Information Site ID: QPT Name: [facility] Address: [address] [place] [address], [address] [place] [address] Director: Mahad Gonzalze MD Lisandra Jimenez MD LAB URINE ORDERABLES Final Resul t Performing Organization Address [facility] de Phone Number [facility] * Urine culture (clean catch) (11/17/2024 10:34 AM EDT) Only the most recent of2 resultswithin the time period is included. MICRO NUMBER [id number] [facility] SPECIMEN QUALITY Adequate [facility] SOURCE: ([facility]) [...] Performing Organization Information Site ID: QPT Name: [facility] Address: [address] [place] [address], [address] [place] [address] Director: Mahad Gonzalez MD Lisandra Jimenez MD LAB MICROBIOLOGY - GENERAL ORDER KARON Final Result Performing Organization Address [facility] de Phone Number [facility] * (ABNORMAL) POCT Urinalysis dipstick (11/17/2024 10:25 AM EDT) Only the most recent of2 resultswithin the time period is included. Color, UA Yellow Clarity, UA Clear Glucose, UA Negative Negative - 2000(110) ++++ mg/dL Bilirubin, UA Negative Negative - 4(70) +++ mg/dL Ketones, UA Negative Negative - 160(16) ++++ mg/dL Spec Grav, UA 1.015 1 - 1.03 Blood, UA Positive Negative - 50 Dallin/mcL pH, UA 5.0 5 - 9 Protein, UA Negative Negative - 2000(20) ++++ mg/dL Urobilinogen, UA 1.0 0.2 - 12 mg/dL Leukocytes, UA 1+ Negative - 500+++ José/mcL Nitrite, UA Negative Negative - Positive Urine 11/17/2024 10:2 5 AM EDT Lisandra Jimenez MD POINT OF CARE TEST ENTER/EDIT OR DERABLES Final Result * Vitamin D 25 hydroxy (10/16/2024 3:08 PM EDT) VITAMIN D,25-OH,TOTAL,IA 38 30 - 100 ng/mL [facility] Comment: Vitamin D Status 25-OH Vitamin D: Deficiency: <20 ng/mL Insufficiency: 20 - 29 ng/mL Optimal: > or = 30 ng/mL For 25-OH Vitamin D testing on patients on D2-supplementation and patients for whom quantitation of D2 and D3 fractions is required, the QuestAssureD(TM) 25-OH VIT D, (D2,D3), LC/MS/MS is recommended: order code [id number] (patients >2yrs). See Note 1 Note 1 For additional information, please refer to http://education.Searchbox/faq/JIX626 (This link is being provided for informational/ educational purposes only.) Blood Venous blood specimen / Unknown 10/16/2024 3:08 PM EDT 10/16/2024 3:08 PM EDT Narrative Resulting Agency Comment Performing Organization Information Site ID: QPT Name: [facility] Address: [address] [place] [address], [address] [place] [phone] Director: Mahad Gonzalez MD Mena Purvis NP LAB BLOOD ORDERABLES Final Resu lt [facility] * (ABNORMAL) CBC and differential (10/16/2024 3:08 PM EDT) WHITE BLOOD CELL COUNT 9.5 3.8 - [...] Performing Organization Information Site ID: QPT Name: [facility] Address: [address] [place] [address], [address] [place] [phone] Director: Mahad Gonzalez MD Mena Purvis NP LAB BLOOD ORDERABLES Final Resu lt [facility] * (ABNORMAL) Comprehensive metabolic panel (10/16/2024 3:08 PM EDT) [facility] Glucose 79 65 - 99 mg/dL [facility] [...] Performing Organization Information Site ID: QPT Name: [facility] Address: [address] [place] [address], [address] [place] [phone] Director: Mahad Gonzalez MD Mena Purvis LAUNDRY OPERATOR FINISHING LAB BLOOD ORDERABLES Final Resu lt [facility] from Last 3 Months Insurance [employer] MED[employer]ARE [employer]VANTAGE Care Teams Cra Relationship Specialty Start Date End Date Benji Cantrell MD [address] [facility] [address] [place] [address] PCP - [employer] 04/29/21 Lisandra Jimenez MD [address] [place], [place] [phone] PCP - General Family Medicine 09/10/22
--- OUTSIDE RECORDS SUMMARY | 2025-01-14 10:43 | XMS_ITS | Encounter Summary ---
Author Organization [facility] Address [address] [facility] [place] [address] Care Team Providers Care Design Verification Engineer Name Role Phone Benji Cantrell MD Unavailable [phone] Lisandra Jimenez MD Primary Care Provider [phone] Reason for Visit * Reason Comments Med Refill Encounter Details Date Type Department Care Team ([facility] Contact Info) Description 02/04/2023 Refill [facility] [address] [place] [address] Lisandra Jimenez MD [address] [place] [address] Gastroesophageal reflux disease without esophagitis [...] than three times a week 12/10/2022 Attends [employer] Not on file 12/10 Do you belong to any clubs o r organizations such as catholic groups, unions, fraternal or athletic groups, or [...] place to sleep or slept in a longterm (including now)? No 12/10/2022 Comments Unknown Sex [...] 02/17/2025 10:00 AM EDT Office Visit [facility] [address] [place] [phone] Mena Purvis NP [address] [place] [address] documented as of this encounter Visit Diagnoses Diagnosis Gastroesophageal reflux disease without esophagitis- Primary Esophageal reflux documented in this encounter Care Teams Design Verification Engineer Relationship Specialty Start Date End Date Benji Cantrell MD [address] [place] [address] PCP - [employer] 04/29/21 Lisandra Jimenez MD [address] [place], [place] [id number] PCP - General Family Medicine 09/10/22 documented as of this encounter
--- OUTSIDE RECORDS SUMMARY | 2025-01-14 10:45 | XMS_ITS | CCD ---
Author Organization [facility] CliniSymd Care Team Providers Care Product Development Director Name Role Phone Benji Cantrell MD Unavailable [phone] Lisandra Jimenez MD Primary Care Provider LISANDRA JIMENEZ Primary Care Unavailable SERGIO JARVIS Attending Unavailable CHRISKELSEY Kwong Admitting Unavailable SERGIO JARVIS Attending Unavailable SERGIO JARVIS Referring Unavailable LISANDRA JIMENEZ Primary Care Unavailable Benji Cantrell MD Unavailable Lisandra Jimenez MD Primary Care Provider KINJAL URBANO Attending Unavailab MENA Stringer Attending Unavailable YANETH DUPREE Attending Unavailable UHI, LISANDRA F Referring Unavailable BOYCEBELÉN Attending Unavailable HUI, LISANDRA F Referring Unavailable HUI, LISANDRA F Attending Unavailable BOYCEBELÉN Attending Unavailable HUI, LISANDRA F Referring Unavailable BOYCE, BELÉN Attending Unavailable HUI, LISANDRA F Referring Unavailable BOYCE, BELÉN Attending Unavailable HUI, LISANDRA F Referring Unavailable BOYCE, BELÉN Attending Unavailable HUI, LISANDRA F Referring Unavailable LEIAYANETH JHA Attending Unavailable HUI, LISANDRA F Referring Unavailable HUI, LISANDRA F Attending Unavailable DIANA GOMEZ Attending Unavailable HUI, LISANDRA F Attending Unavailable HUI, LISANDRA F Attending Unavailable HUI, LISANDRA F Referring Unavailable Gikimi DE LA CRUZ, Andrius Moon Attending Unavailable Gikimi DE LA CRUZ, Andrius Moon Attending Unavailable Gikimi DE LA CRUZ, Andrius Red Attending Unavailable Vance DE LA CRUZ, Andrius Red Attending Unavailable Vance DE LA CRUZ, Andrius Moon Attending Unavailable Allergies Allergy Classification Reported Allergen(s) Allergy Type Date of Onset Reaction(s) Facility (20 sources) diphenhydrAMINE Drug Allergy 03-25-20 Unknown [facility] (20 sources) Sulfonamides (Antibiotic) Drug Allergy 09-02-19 Other (See Comments) [facility] (1 source) diphenhydrAMINE; Translations: [DIPHENHYDRAMINE [...] UA Negative Negative - 4(70) +++ mg/dL [facility] Blood, UA Positive Negative - 50 Dallin/mcL [facility] Clarity, UA Clear [facility] re Color, UA Yellow [facility] Glucose, UA Negative Negative - 1999(110) ++++ mg/dL [facility] Interpretation and review of laboratory results Abnormal [facility] Ketones, UA Negative Negative - 160(16) ++++ mg/dL [facility] Leukocytes, UA 1+ Negative - 500+++ José/mcL [facility] Nitrite, UA Negative Negative - Positive [facility] pH, UA 5 5 - 9 [facility] e Protein, UA Negative Negative - 1999(20) ++++ mg/dL [facility] Spec Grav, UA 1.015 1 - 1.03 [facility] Urobilinogen, UA 1.0 0.2 - 12 mg/dL [facility] Urinalysis macro (dipstick) panel (U)on 10-06-2024 Bilirubin, UA Negative Negative - 4(70) +++ mg/dL [facility] Blood, UA Positive Negative - 50 Dallin/mcL [facility] Clarity, UA Clear [facility] Color, UA Yellow [facility] Glucose, UA Negative Negative - 1999(110) ++++ mg/dL [facility] Ketones, UA Negative Negative - 160(16) ++++ mg/dL [facility] Leukocytes, UA Positive Negative - 500+++ José/mcL [facility] Nitrite, UA Negative Negative - Positive [facility] pH, UA 5 5 - 9 [facility] Protein, UA Positive Negative - 1999(20) ++++ mg/dL [facility] Spec Grav, UA 1 1 - 1.03 [facility] Urobilinogen, UA 1.0 0.2 - 12 mg/dL [facility] DEXA BONE DENSITYon 05-15-19 25 [...] ABSOLUTE BASOPHIL 0.0 X10E9/L Normal 0.0-0.2 [facility] Comment on above: Performed By: #### C BCA, CMP, 35400-2 #### [facility] ([id number]) [address] [place] [address] ABSOLUTE NEUTROPHIL 5.0 X10E9/L Normal 1.5-6.[address] [facility] Comment on above: Performed By: #### Deanna BROWN CMP, 38234-1 #### [facility] ([id number]) [address] [place] [address] 83585 Basophils/100 WBC (Bld) 0.2 % Normal [facility] Comment on above: Performed By: #### Deanna BROWN CMP, 33153-0 #### [facility] ([id number]) [address] [place] [address] 69120 Eosinophils (Bld) [#/Vol] 0.1 10*3/uL Normal 0.0-0.4 [facility] Comment on above: Performed By: #### Deanna BROWN CMP, 65341-9 #### [facility] ([id number]) [address] [place] [address] 18802 Eosinophils/100 WBC (Bld) 1.2 % Normal [facility] Comment on above: Performed By: #### Deanna BROWN [facility], 86425-5 #### [facility] ([id number]) [address] [place] [address] 83574 Erythrocyte distribution width (RBC) [Ratio] 13.4 % Normal 11.5-15.0 [facility] Comment on above: Performed By: #### Deanna BROWN CMP, 70421-1 #### [facility] ([id number]) [address] [place] [address] 35903 Hematocrit (Bld) [Volume fraction] 39.6 % Normal 35-47 [facility] Comment on above: Performed By: #### Deanna BROWN CMP, 45080-5 #### [facility] ([id number]) [address] [place] [address] 61290 Hemoglobin (Bld) [Mass/Vol] 13.2 g/dL Normal 11.7-15.5 [facility] Comment on above: Performed By: #### Deanna BROWN CMP, #### [facility] ([id number]) [address] [place] [address] 64206 Lymphocytes (Bld) [#/Vol] 1.0 10*3/uL Normal 1.0-3.5 [facility] Comment on above: Performed By: #### Deanna BROWN CMP, #### [facility] ([id number]) [address] [place] [address] 28636 Lymphocytes/100 WBC (Bld) 14.2 % Normal [facility] Comment on above: Performed By: #### Deanna BROWN CMP, #### [facility] ([id number]) [address] [place] [address] 96955 MCH (RBC) [Entitic mass] 31.0 pg Normal 27-34 [facility] Comment on above: Performed By: #### Deanna BROWN [facility], #### [facility] ([id number]) [address] [place] [address] 82801 MCHC (RBC) [Mass/Vol] 33.4 g/dL Normal 32-36 [facility] Comment on above: Performed By: #### Deanna BROWN CMP, #### [facility] ([id number]) [address] [place] [address] 99495 MCV (RBC) [Entitic vol] 93 fL Normal 80-100 [facility] Comment on above: Performed By: #### Deanna BROWN CMP, #### [facility] ([id number]) [address] [place] [address] 83490 Monocytes (Bld) [#/Vol] 1.2 10*3/uL High 0-0.9 [facility] Comment on above: Performed By: #### Deanna BROWN CMP, #### [facility] ([id number]) [address] [place] [address] 53768 Monocytes/100 WBC (Bld) 16.8 % Normal [facility] Comment on above: Performed By: #### C BCA, CMP, 81266-7 #### [facility] ([id number]) [address] [place] [address] 52674 Neutrophils/100 WBC (Bld) 67.6 % Normal [facility] Comment on above: Performed By: #### Deanna BROWN, CMP, 22187-0 #### [facility] ([id number]) [address] [place] [address] 01167 Platelet mean volume (Bld) [Entitic vol] 8.6 fL Normal 7-12 [facility] Comment on above: Performed By: #### Deanna BROWN, CMP, 34069-4 #### [facility] ([id number]) [address] [place] [address] 38614 Platelets (Bld) [#/Vol] 172 10*3/uL Normal 150-450 [facility] Comment on above: Performed By: #### Deanna BROWN, CMP, 34470-6 #### [facility] ([id number]) [address] [place] [address] 25026 RBC COUNT 4.26 X10E12/L Normal 3.80-5.20 [facility] Comment on above: Performed By: #### Deanna BROWN, CMP, 33223-5 #### [facility] ([id number]) [address] [place] [address] 63433 WBC (Bld) [#/Vol] 7.3 10*3/uL Normal 4.0-11.0 [facility] Comment on above: Performed By: #### Deanna BROWN, CMP, 47518-2 #### [facility] ([id number]) [address] [place] [address] [place] [address] COMPREHENSIVE METABOLIC PANE Cruzito 01-12-2024 Albumin [Mass/Vol] 3.8 g/dL Normal 3.2-5.3 [facility] Comment on above: Performed By: #### B ANJUM, LIVR, CBCA #### [facility] ([id number]) [address] [place] [address] 67587 ALP [Catalytic activity/Vol] 49 U/L Normal 39-130 [facility] Comment on above: Performed By: #### B ANJUM, LIVR, CBCA #### [facility] ([id number]) [address] [place] [address] 27727 ALT [Catalytic activity/Vol] 28 U/L Normal 0-31 [facility] Comment on above: Performed By: #### B ANJUM, LIVR, CBCA #### [facility] ([id number]) [address] [place] [address] 40558 Anion gap [Moles/Vol] 9 mmol/L Normal 5-15 [facility] Comment on above: Performed By: #### B ANJUM LIVR, CBCA #### [facility] ([id number]) [address] [place] [address] 82324 AST [Catalytic activity/Vol] 31 U/L Normal 0-41 [facility] Comment on above: Performed By: #### B ANJUM, LIVR, CBCA #### [facility] ([id number]) [address] [place] [address] 28803 Bilirubin [Mass/Vol] 0.4 mg/dL Normal 0.3-1.[address] [facility] Comment on above: Performed By: #### B MP, LIVR, CBCA #### [facility] ([id number]) [address] [place] [address] 38581 Calcium [Mass/Vol] 8.5 mg/dL Normal 8.5-10.5 [facility] Comment on above: Performed By: #### B ANJUM LIVR, CBCA #### [facility] ([id number]) [address] [place] [address] 88218 Chloride [Moles/Vol] 104 mmol/L Normal 98-[address] [facility] Comment on above: Performed By: #### B ANJUM LIVR, CBCA #### [facility] ([id number]) [address] [place] [address] 03541 CO2 [Moles/Vol] 25 mmol/L Normal 22-32 [facility] Comment on above: Performed By: #### B ANJUM LIVR, CBCA #### [facility] ([id number]) [address] [place] [address] 80193 Creatinine [Mass/Vol] 0.79 mg/dL Normal 0.40-1.00 [facility] Comment on above: Result Comment: METH OD TRACEABLE TO IDMS STANDARD Performed By: #### B ANJUM LIVNaima, CBCA #### [facility] ([id number]) [address] [place] [address] 35773 GFR/1.73 sq M.predicted among non-blacks MDRD (S/P/Bld) [Vol rate/Area] 77 mL/min/{1.73_m2} Normal >59 [facility] Comment on above: Result Comment: Reported eGFR is based on the CKD-EPI 2020 equation that does not use a race coefficient. Performed By: #### B ANJUM LIVR, CBCA #### [facility] ([id number]) [address] [place] [address] 94895 Glucose [Mass/Vol] 78 mg/dL Normal 65-99 [facility] Comment on above: Performed By: #### B ANJUM, LIVR, CBCA #### [facility] ([id number]) [address] [place] [address] 78109 Potassium [Moles/Vol] 3.7 mmol/L Normal 3.5-5.0 [facility] Comment on above: Performed By: #### B MP, LIVR, CBCA #### [facility] ([id number]) [address] [place] [address] 45908 Protein [Mass/Vol] 6.8 g/dL Normal 6.0-8.0 [facility] Comment on above: Performed By: #### B MP, LIVR, CBCA #### [facility] ([id number]) [address] [place] [address] 74616 Sodium [Moles/Vol] 138 mmol/L Normal 134-146 [facility] Comment on above: Performed By: #### B MP, LIVR, CBCA #### [facility] ([id number]) [address] [place] [address] 63351 Urea nitrogen [Mass/Vol] 18 mg/dL Normal 5-27 [facility] Comment on above: Performed By: #### B MP, LIVR, CBCA #### [facility] ([id number]) [address] [place] [address] 14013 MAGNESIUMon 01-12-2024 Magnesium [Mass/Vol] 2.2 mg/dL Normal 1.8-2.[address] [facility] Comment on above: Performed By: #### B MP, LIVR, CBCA #### [facility] ([id number]) [address] [place] [address] 07405 CBC AND AUTO DIFFon 01-11-20 24 ABSOLUTE BASOPHIL 0.0 X10E9/L Normal 0.0-0.2 [facility] Comment on above: Performed By: #### C BCA, CMP, 01756-6, THYR #### [facility] ([id number]) [address] [place] [address] 02523 ABSOLUTE NEUTROPHIL 4.2 X10E9/L Normal 1.5-6.[address] [facility] Comment on above: Performed By: #### C KEVIN, CMP, , THYR #### [facility] ([id number]) [address] [place] [address] 17375 Basophils/100 WBC (Bld) 0.2 % Normal [facility] Comment on above: Performed By: #### C KEVIN, CMP, , THYR #### [facility] ([id number]) [address] [place] [address] 65939 Eosinophils (Bld) [#/Vol] 0.0 10*3/uL Normal 0.0-0.4 [facility] Comment on above: Performed By: #### C KEVIN CMP, , THYR #### [facility] ([id number]) [address] [place] [address] 01012 Eosinophils/100 WBC (Bld) 0.2 % Normal [facility] Comment on above: Performed By: #### C KEVIN CMP, , THYR #### [facility] ([id number]) [address] [place] [address] 77035 Erythrocyte distribution width (RBC) [Ratio] 13.1 % Normal 11.5-15.0 [facility] Comment on above: Performed By: #### C KEVIN CMP, , THYR #### [facility] ([id number]) [address] [place] [address] 87244 Hematocrit (Bld) [Volume fraction] 37.4 % Normal 35-47 [facility] Comment on above: Performed By: #### Deanna BCA, CMP, , THYR #### [facility] ([id number]) [address] [place] [address] 91862 Hemoglobin (Bld) [Mass/Vol] 12.7 g/dL Normal 11.7-15.5 [facility] Comment on above: Performed By: #### C REDD BROWN, , THYR #### [facility] ([id number]) [address] [place] [address] 21591 Lymphocytes (Bld) [#/Vol] 0.9 10*3/uL Low 1.0-3.5 [facility] Comment on above: Performed By: #### C REDD BROWN, , THYR #### [facility] ([id number]) [address] [place] [address] 02968 Lymphocytes/100 WBC (Bld) 13.6 % Normal [facility] Comment on above: Performed By: #### C REDD BROWN, , THYR #### [facility] ([id number]) [address] [place] [address] 28060 MCH (RBC) [Entitic mass] 31.2 pg Normal 27-34 [facility] Comment on above: Performed By: #### Deanna BROWN CMP, , THYR #### [facility] ([id number]) [address] [place] [address] 07988 MCHC (RBC) [Mass/Vol] 33.9 g/dL Normal 32-36 [facility] Comment on above: Performed By: #### C REDD BROWN, , THYR #### [facility] ([id number]) [address] [place] [address] 02531 MCV (RBC) [Entitic vol] 92 fL Normal 80-100 [facility] Comment on above: Performed By: #### Deanna BROWN CMP, , THYR #### [facility] ([id number]) [address] [place] [address] 46236 Monocytes (Bld) [#/Vol] 1.2 10*3/uL High 0-0.9 [facility] Comment on above: Performed By: #### Daenna BROWN CMP, , THYR #### [facility] ([id number]) [address] [place] [address] 58965 Monocytes/100 WBC (Bld) 19.3 % Normal [facility] Comment on above: Performed By: #### C BCA, CMP, , THYR #### [facility] ([id number]) [address] [place] [address] 38045 Neutrophils/100 WBC (Bld) 66.7 % Normal [facility] Comment on above: Performed By: #### C BCA, CMP, , THYR #### [facility] ([id number]) [address] [place] [address] 84079 Platelet mean volume (Bld) [Entitic vol] 8.3 fL Normal 7-12 [facility] Comment on above: Performed By: #### C BCA, CMP, , THYR #### [facility] ([id number]) [address] [place] [address] 52004 Platelets (Bld) [#/Vol] 174 10*3/uL Normal 150-450 [facility] Comment on above: Performed By: #### C BCA, CMP, , THYR #### [facility] ([id number]) [address] [place] [address] 78684 RBC COUNT 4.06 X10E12/L Normal 3.80-5.20 [facility] Comment on above: Performed By: #### C BCA, CMP, , THYR #### [facility] ([id number]) [address] [place] [address] 45227 WBC (Bld) [#/Vol] 6.3 10*3/uL Normal 4.0-11.0 [facility] Comment on above: Performed By: #### C BCA, CMP, , THYR #### [facility] ([id number]) [address] [place] [address] [place] [address] COMPREHENSIVE METABOLIC PANE Cruzito 01-11-2024 Albumin [Mass/Vol] 3.6 g/dL Normal 3.2-5.3 [facility] Comment on above: Performed By: #### C BCA, CMP, , THYR #### [facility] ([id number]) [address] [place] [address] [place] [address] ALP [Catalytic activity/Vol] 47 U/L Normal 39-130 [facility] Comment on above: Performed By: #### C BCA, CMP, , THYR #### [facility] ([id number]) [address] [place] [address] 65034 ALT [Catalytic activity/Vol] 27 U/L Normal 0-31 [facility] Comment on above: Performed By: #### C BCA, CMP, , THYR #### [facility] ([id number]) [address] [place] [address] 70910 Anion gap [Moles/Vol] 9 mmol/L Normal 5-15 [facility] Comment on above: Performed By: #### C BCA, CMP, , THYR #### [facility] ([id number]) [address] [place] [address] 51864 AST [Catalytic activity/Vol] 28 U/L Normal 0-41 [facility] Comment on above: Performed By: #### C BCA, CMP, , THYR #### [facility] ([id number]) [address] [place] [address] 88824 Bilirubin [Mass/Vol] 0.5 mg/dL Normal 0.3-1.[address] [facility] Comment on above: Performed By: #### C BCA, CMP, , THYR #### [facility] ([id number]) [address] [place] [address] 45415 Calcium [Mass/Vol] 8.5 mg/dL Normal 8.5-10.5 [facility] Comment on above: Performed By: #### C REDD BROWN, , THYR #### [facility] ([id number]) [address] [place] [address] 62892 Chloride [Moles/Vol] 106 mmol/L Normal 98-[address] [facility] Comment on above: Performed By: #### C REDD BROWN, , THYR #### [facility] ([id number]) [address] [place] [address] 42388 CO2 [Moles/Vol] 24 mmol/L Normal 22-32 [facility] Comment on above: Performed By: #### C REDD BROWN, , THYR #### [facility] ([id number]) [address] [place] [address] 76292 Creatinine [Mass/Vol] 0.74 mg/dL Normal 0.40-1.00 [facility] Comment on above: Result Comment: METH OD TRACEABLE TO IDMS STANDARD Performed By: #### C REDD BROWN, , THYR #### [facility] ([id number]) [address] [place] [address] 06168 GFR/1.73 sq M.predicted among non-blacks MDRD (S/P/Bld) [Vol rate/Area] 83 mL/min/{1.73_m2} Normal >59 [facility] Comment on above: Result Comment: Reported eGFR is based on the CKD-EPI 2020 equation that does not use a race coefficient. Performed By: #### C REDD BROWN, , THYR #### [facility] ([id number]) [address] [place] [address] 54536 Glucose [Mass/Vol] 91 mg/dL Normal 65-99 [facility] Comment on above: Performed By: #### C KEVIN, CMP, , THYR #### [facility] ([id number]) [address] [place] [address] 67836 Potassium [Moles/Vol] 3.7 mmol/L Normal 3.5-5.0 [facility] Comment on above: Performed By: #### C BCA, CMP, , THYR #### [facility] ([id number]) [address] [place] [address] 08694 Protein [Mass/Vol] 6.5 g/dL Normal 6.0-8.0 [facility] Comment on above: Performed By: #### C KEVIN, CMP, , THYR #### [facility] ([id number]) [address] [place] [address] 83470 Sodium [Moles/Vol] 139 mmol/L Normal 134-146 [facility] Comment on above: Performed By: #### C KEVIN, CMP, , THYR #### [facility] ([id number]) [address] [place] [address] 02546 Urea nitrogen [Mass/Vol] 15 mg/dL Normal 5-27 [facility] Comment on above: Performed By: #### C BCA, CMP, , THYR #### [facility] ([id number]) [address] [place] [address] 88138 MAGNESIUMon 01-11-2024 Magnesium [Mass/Vol] 2.6 mg/dL Normal 1.8-2.[address] [facility] Comment on above: Performed By: #### 1 9123-9 #### [facility] ([id number]) [address] [place] [address] 16971 Magnesium [Mass/Vol] 1.8 mg/dL Normal 1.8-2.[address] [facility] Comment on above: Performed By: #### C BCA, CMP, , THYR #### [facility] ([id number]) [address] [place] [address] 51706 THYROID PROFILEon 01-11-2024 Free T4 [Mass/Vol] 0.81 ng/dL Normal 0.61-1.60 [facility] Comment on above: Performed By: #### C BCA, CMP, , THYR #### [facility] ([id number]) [address] [place] [address] 61073 TSH 0.64 uIU/mL Normal 0.49-4.67 [facility] Comment on above: Performed By: #### C BCA, CMP, , THYR #### [facility] ([id number]) [address] [place] [address] 48850 BASIC METABOLIC PANLon 01-09 Anion gap [Moles/Vol] 7 mmol/L Normal 5-15 [facility] Comment on above: Performed By: #### B MP, LIVR, CBCA #### [facility] ([id number]) [address] [place] [address] 18496 Calcium [Mass/Vol] 8.3 mg/dL Low 8.5-10.5 [facility] Comment on above: Performed By: #### B MP, LIVR, CBCA #### [facility] ([id number]) [address] [place] [address] [place] [address] Chloride [Moles/Vol] 106 mmol/L Normal 98-[address] [facility] Comment on above: Performed By: #### B MP, LIVR, CBCA #### [facility] ([id number]) [address] [place] [address] 50222 CO2 [Moles/Vol] 22 mmol/L Normal 22-32 [facility] Comment on above: Performed By: #### B MP, LIVR, CBCA #### [facility] ([id number]) [address] [place] [address]303 Creatinine [Mass/Vol] 0.90 mg/dL Normal 0.40-1.00 [facility] Comment on above: Result Comment: METH OD TRACEABLE TO IDMS STANDARD Performed By: #### B ANJUM LIVNaima CBCA #### [facility] ([id number]) [address] [place] [address] 80185 GFR/1.73 sq M.predicted among non-blacks MDRD (S/P/Bld) [Vol rate/Area] 65 mL/min/{1.73_m2} Normal >59 [facility] Comment on above: Result Comment: Reported eGFR is based on the CKD-EPI 2020 equation that does not use a race coefficient. Performed By: #### B ANJUM LIVR, CBCA #### [facility] ([id number]) [address] [place] [address]13 Glucose [Mass/Vol] 100 mg/dL High 65-99 [facility] Comment on above: Performed By: #### B ANJUM LIVNaima CBCA #### [facility] ([id number]) [address] [place] [address] 96263 Potassium [Moles/Vol] 4.9 mmol/L Normal 3.5-5.0 [facility] Comment on above: Result Comment: SPEC IMEN HEMOLYZED, RESULTS INCREASED Performed By: #### B ANJUM LIVR, CBCA #### [facility] ([id number]) [address] [place] [address] 68981 Sodium [Moles/Vol] 135 mmol/L Normal 134-146 [facility] Comment on above: Performed By: #### B ANJUM LIVR, CBCA #### [facility] ([id number]) [address] [place] [address] 38151 Urea nitrogen [Mass/Vol] 19 mg/dL Normal 5-27 [facility] Comment on above: Performed By: #### B MP, LIVR, CBCA #### [facility] ([id number]) [address] [place] [address]09 CBC AND AUTO DIFFon 01-10-20 24 ABSOLUTE BASOPHIL 0.0 X10E9/L Normal 0.0-0.2 [facility] Comment on above: Performed By: #### B MP, LIVR, CBCA #### [facility] ([id number]) [address] [place] [address] 79148 ABSOLUTE NEUTROPHIL 5.2 X10E9/L Normal 1.5-6.[address] [facility] Comment on above: Performed By: #### B MP, LIVR, CBCA #### [facility] ([id number]) [address] [place] [address] 59922 Basophils/100 WBC (Bld) 0.2 % Normal [facility] Comment on above: Performed By: #### B MP, LIVR, CBCA #### [facility] ([id number]) [address] [place] [address] 93223 Eosinophils (Bld) [#/Vol] 0.0 10*3/uL Normal 0.0-0.4 [facility] Comment on above: Performed By: #### B MP, LIVR, CBCA #### [facility] ([id number]) [address] [place] [address] 84316 Eosinophils/100 WBC (Bld) 0.2 % Normal [facility] Comment on above: Performed By: #### B MP, LIVR, CBCA #### [facility] ([id number]) [address] [place] [address] [place] [address] Erythrocyte distribution width (RBC) [Ratio] 13.2 % Normal 11.5-15.0 [facility] Comment on above: Performed By: #### B MP, LIVR, CBCA #### [facility] ([id number]) [address] [place] [address] 87022 Hematocrit (Bld) [Volume fraction] 36.7 % Normal 35-47 [facility] Comment on above: Performed By: #### B MP, LIVR, CBCA #### [facility] ([id number]) [address] [place] [address] 17055 Hemoglobin (Bld) [Mass/Vol] 12.5 g/dL Normal 11.7-15.5 [facility] Comment on above: Performed By: #### B MP, LIVR, CBCA #### [facility] ([id number]) [address] [place] [address] 83330 Lymphocytes (Bld) [#/Vol] 0.7 10*3/uL Low 1.0-3.5 [facility] Comment on above: Performed By: #### B MP, LIVR, CBCA #### [facility] ([id number]) [address] [place] [address] 14499 Lymphocytes/100 WBC (Bld) 9.9 % Normal [facility] Comment on above: Performed By: #### B MP, LIVR, CBCA #### [facility] ([id number]) [address] [place] [address] 83875 MCH (RBC) [Entitic mass] 31.4 pg Normal 27-34 [facility] Comment on above: Performed By: #### B MP, LIVR, CBCA #### [facility] ([id number]) [address] [place] [address] 94572 MCHC (RBC) [Mass/Vol] 34.0 g/dL Normal 32-36 [facility] Comment on above: Performed By: #### B MP, LIVR, CBCA #### [facility] ([id number]) [address] [place] [address] 51085 MCV (RBC) [Entitic vol] 92 fL Normal 80-100 [facility] Comment on above: Performed By: #### B MP, LIVR, CBCA #### [facility] ([id number]) [address] [place] [address] 63246 Monocytes (Bld) [#/Vol] 1.0 10*3/uL High 0-0.9 [facility] Comment on above: Performed By: #### B MP, LIVR, CBCA #### [facility] ([id number]) [address] [place] [address] 78879 Monocytes/100 WBC (Bld) 14.7 % Normal [facility] Comment on above: Performed By: #### B MP, LIVR, CBCA #### [facility] ([id number]) [address] [place] [address] 62010 Neutrophils/100 WBC (Bld) 75.0 % Normal [facility] Comment on above: Performed By: #### B MP, LIVR, CBCA #### [facility] ([id number]) [address] [place] [address] 39111 Platelet mean volume (Bld) [Entitic vol] 8.1 fL Normal 7-12 [facility] Comment on above: Performed By: #### B MP, LIVR, CBCA #### [facility] ([id number]) [address] [place] [address] 42547 Platelets (Bld) [#/Vol] 173 10*3/uL Normal 150-450 [facility] Comment on above: Performed By: #### B MP, LIVR, CBCA #### [facility] ([id number]) [address] [place] [address] 49415 RBC COUNT 3.97 X10E12/L Normal 3.80-5.20 [facility] Comment on above: Performed By: #### B MP, LIVR, CBCA #### [facility] ([id number]) [address] [place] [address] 45874 WBC (Bld) [#/Vol] 6.9 10*3/uL Normal 4.0-11.0 [facility] Comment on above: Performed By: #### B MP, LIVR, CBCA #### [facility] ([id number]) [address] [place] [address] 16269 LIVER PANELon 01-10-2024 Albumin [Mass/Vol] 3.9 g/dL Normal 3.2-5.3 [facility] Comment on above: Performed By: #### B MP, LIVR, CBCA #### [facility] ([id number]) [address] [place] [address] 49359 ALP [Catalytic activity/Vol] 47 U/L Normal 39-130 [facility] Comment on above: Performed By: #### B MP, LIVR, CBCA #### [facility] ([id number]) [address] [place] [address] 65111 ALT [Catalytic activity/Vol] 23 U/L Normal 0-31 [facility] Comment on above: Result Comment: SPEC IMEN HEMOLYZED, RESULTS INCREASED Performed By: #### B MP, LIVR, CBCA #### [facility] ([id number]) [address] [place] [address] 29594 AST [Catalytic activity/Vol] 44 U/L High 0-41 [facility] Comment on above: Result Comment: SPEC IMEN HEMOLYZED, RESULTS INCREASED Performed By: #### B MP, LIVR, CBCA #### [facility] ([id number]) [address] [place] [address] 12837 Bilirubin [Mass/Vol] 1.3 mg/dL High 0.3-1.[address] [facility] Comment on above: Result Comment: RESU LTS QUESTIONABLE DUE TO HEMOLYSIS Performed By: #### B MP, LIVR, CBCA #### [facility] ([id number]) [address] [place] [address] 51165 Bilirubin.direct [Mass/Vol] 0.4 mg/dL Normal 0.0-0.4 [facility] Comment on above: Performed By: #### B MP, LIVR, CBCA #### [facility] ([id number]) [address] [place] [address] Protein [Mass/Vol] 7.0 g/dL Normal 6.0-8.0 [facility] Comment on above: Result Comment: SPEC IMEN HEMOLYZED, RESULTS INCREASED Performed By: #### B MP, LIVR, CBCA #### [facility] ([id number]) [address] [place] [address] Laboratory - Microbiology an d Antimicrobial susceptibilityon 01-10-2024 SARS-CoV-2 (COVID-19) RNA [facility]+probe Ql (Unsp spec) Positive [facility] [facility] No Panel Informationon 01-09 FLU A Negative [facility] FLU B Negative [facility] Interpretation and review of laboratory results Abnormal [facility] XR CHEST 1 VWon 01-10-2024 [...] Lockett MD on 01/10/2024 8:08 PM Normal [facility] Urinalysis macro (dipstick) panel (U)on 01-07-2024 Bilirubin, UA Negative Negative - 4(70) +++ mg/dL [facility] Blood, UA Negative Negative - 50 Dallin/mcL [facility] Clarity, UA [facility], [facility]A Light [facility] Glucose, UA Negative Negative - 1999(110) ++++ mg/dL [facility] Interpretation and review of laboratory results Normal [facility] Ketones, UA Negative Negative - 160(16) ++++ mg/dL [facility] Leukocytes, UA Negative Negative - 500+++ José/mcL [facility] Nitrite, UA Negative Negative - Positive [facility] pH, UA 6.0 5 - 9 [facility] [employer] Protein, UA Negative Negative - 1999(20) ++++ mg/dL [facility] Spec Grav, UA 1.010 1 - 1.03 [facility] Urobilinogen, UA 0.2 0.2 - 12 mg/dL [facility] XR Lumbar spine 4 [facility] Result: June 05, 2023 x-rays AP lateral and lateral flexion-extension views of the lumbar spine demonstrate severe scoliosis apex to the right at the thoracolumbar junction of nearly 90 degrees curvature in the coronal plane. There are no definitive fractures identified. Impression: Severe scoliosis Corwin Lui D.O. [facility] XR Lumbar spine 4 ViewsOrder ed By: Andrea Lui on 06-06-2023 [facility] [employer] Work Phone: XR Lumbar spine 4 [facility] Radiology Study observation (narrative) [facility] SCREENING MAMMOGRAM W/JORDAN, BILATERAL*on 04-10-2021 SCREENING [...] VERY IMPORTANT TO YOUR HEALTH. THE CURRENT [employer] GUIDELINES RECOMMENDS ANNUAL MAMMOGRAPHY BEGINNING AT AGE 40 THIS FACILITY USES A REMINDER SYSTEM TO ENSURE ALL PATIENTS RECEIVE REMINDER NOTIFICATIONS AT THE APPROPRIATE TIME BASED ON THE RECOMMENDATIONS OF THIS EXAM. Report reported and signed by Filiberto Love on 04/10/2021 1211 Normal [facility] Manager Implementation Vital Signs Date Time Vital Sign Value Performing Clinician Juanjosei michael 11-17-2024 10:17-0400 Body height 153.7 cm Lisandra Jimenez MD Work Phone: [facility] 11-17-2024 10:17-0400 Body mass index (BMI) [Ratio] 20.71 kg/m2 Lisandra Jimenez MD Work Phone: [facility] 11-17-2024 10:17-0400 Body weight 48.9 kg Lisandra Jimenez MD Work Phone: [facility] 11-17-2024 10:17-0400 Diastolic blood pressure 68 mm[Hg] Lisandra Jimenez MD Work Phone: [facility] 11-17-2024 10:17-0400 Heart rate 50 /min Lisandra Jimenez MD Work Phone: [facility] 11-17-2024 10:17-0400 Respiratory rate 18 /min Lisandra Jimenez MD Work Phone: [facility] 11-17-2024 10:17-0400 SaO2% (BldA) [Mass fraction] 97 % Lisandra Jimenze MD Work Phone: [facility] 11-17-2024 10:17-0400 Systolic blood pressure 122 mm[Hg] Lisandra Jimenez MD Work Phone: [facility] 10-16-2024 14:10-0400 Body height 153.7 cm Mena Morse BREAD SLICER MACHINE Work Phone: [facility] 10-16-2024 14:10-0400 Body mass index (BMI) [Ratio] 20.71 kg/m2 Mena Morse BREAD [employer]ICER MACHINE Work Phone: [facility] 10-16-2024 14:10-0400 Body temperature 99.19 [degF] Mena Morse BREAD SLICER MACHINE Work Phone: [facility] 10-16-2024 14:10-0400 Body weight 48.9 kg Mena Morse BREAD SLICER MACHINE Work Phone: [facility] 10-16-2024 14:10-0400 Diastolic blood pressure 84 mm[Hg] Mena Majors BREAD SLICER MACHINE Work Phone: [facility] 10-16-2024 14:10-0400 Heart rate 96 /min Mena Majors BREAD SLICER MACHINE Work Phone: [facility] 10-16-2024 14:10-0400 SaO2% (BldA) [Mass fraction] 97 % Mena Majors BREAD SLICER MACHINE Work Phone: [facility] 10-16-2024 14:10-0400 Systolic blood pressure 118 mm[Hg] Mena Majors BREAD SLICER MACHINE Work Phone: [facility] 10-06-2024 16:05-0400 Body temperature 97.59 [degF] Kinjal Marcospatrick BREAD SLICER MACHINE Work Phone: [facility] 10-06-2024 16:05-0400 Diastolic blood pressure 82 mm[Hg] Kinjal Urbano BREAD SLICER MACHINE Work Phone: [facility] 10-06-2024 16:05-0400 Systolic blood pressure 126 mm[Hg] Kinjal Urbano BREAD SLICER MACHINE Work Phone: [facility] 05-11-2024 15:02-0500 Body height 153.7 cm Lisandra Jimenez MD Work Phone: [facility] 05-11-2024 15:02-0500 Body mass index (BMI) [Ratio] 21.36 kg/m2 Lisandra Jimenez MD Work Phone: [facility] 05-11-2024 15:02-0500 Body weight 50.44 kg Lisandra Jimenez MD Work Phone: [facility] 05-11-2024 15:02-0500 Diastolic blood pressure 64 mm[Hg] Lisandra Jimenez MD Work Phone: [facility] 05-11-2024 15:02-0500 Heart rate 65 /min Lisandra Jimenez MD Work Phone: [facility] 05-11-2024 15:02-0500 Respiratory rate 18 /min Lisandra Jimenez MD Work Phone: [facility] 05-11-2024 15:02-0500 SaO2% (BldA) [Mass fraction] 99 % Lisandra Jimenez MD Work Phone: [facility] 05-11-2024 15:02-0500 Systolic blood pressure 112 mm[Hg] Lisandra Jimenez MD Work Phone: [facility] 02-03-2024 09:06-0400 Body height 153.7 cm Lisandra Jimenez MD Work Phone: [facility] 02-03-2024 09:06-0400 Body mass index (BMI) [Ratio] 21.32 kg/m2 Lisandra Jimenez MD Work Phone: [facility] 02-03-2024 09:06-0400 Body weight 50.35 kg Lisandra Jimenez MD Work Phone: [facility] 02-03-2024 09:06-0400 Heart rate 83 /min Lisandra Jimenez MD Work Phone: [facility] 02-03-2024 09:06-0400 SaO2% (BldA) [Mass fraction] 94 % Lisandra Jimenez MD Work Phone: [facility] 01-10-2024 16:07-0400 Body height 154.9 cm Diana Gomez MD Work Phone: [facility] 01-10-2024 16:07-0400 Body temperature 98.8 [degF] Diana Gomez MD Work Phone: [facility] 01-10-2024 16:07-0400 Diastolic blood pressure 78 mm[Hg] Diana Gomez MD Work Phone: [facility] 01-10-2024 16:07-0400 Heart rate 122 /min Diana Gomze MD Work Phone: [facility] 01-10-2024 16:07-0400 SaO2% (BldA) [Mass fraction] 93 % Diana Gomez MD Work Phone: [facility] 01-10-2024 16:07-0400 Systolic blood pressure 122 mm[Hg] Diana Gomez MD Work Phone: [facility] 01-07-2024 13:02-0400 Body height 154.9 cm Lisandra Jimenez MD Work Phone: [facility] 01-07-2024 13:02-0400 Body mass index (BMI) [Ratio] 21.54 kg/m2 Lisandra Jimenez MD Work Phone: [facility] 01-07-2024 13:02-0400 Body weight 51.71 kg Lisandra Jimenez MD Work Phone: [facility] 01-07-2024 13:02-0400 Diastolic blood pressure 78 mm[Hg] Lisandra Jimenez MD Work Phone: [facility] 01-07-2024 13:02-0400 Heart rate 65 /min Lisandra Jimenez MD Work Phone: [facility] 01-07-2024 13:02-0400 Respiratory rate 18 /min Lisandra Jimenez MD Work Phone: [facility] 01-07-2024 13:02-0400 SaO2% (BldA) [Mass fraction] 97 % Lisandra Jimenez MD Work Phone: [facility] 01-07-2024 13:02-0400 Systolic blood pressure 122 mm[Hg] Lisandra Jimenez MD Work Phone: [facility] 06-10-2023 10:05-0500 Body height 154.9 cm Lisandra Jimenez MD Work Phone: [facility] 06-10-2023 10:05-0500 Body mass index (BMI) [Ratio] 20.6 kg/m2 Lisandra Jimenez MD Work Phone: [facility] 06-10-2023 10:05-0500 Body weight 49.44 kg Lisandra Jimenez MD Work Phone: [facility] 06-10-2023 10:05-0500 Diastolic blood pressure 68 mm[Hg] Lisandra Jimenez MD Work Phone: [facility] 06-10-2023 10:05-0500 Heart rate 76 /min Lisandra Jimenez MD Work Phone: [facility] 06-10-2023 10:05-0500 Respiratory rate 16 /min Lisandra Jimenez MD Work Phone: [facility] 06-10-2023 10:05-0500 Systolic blood pressure 130 mm[Hg] Lisandra Jimenez MD Work Phone: [facility] Encounters Encounter Date Encounter Type Care Provider Facility Start: 01-04-2025 End: 01-04-2025 ambulatory Mere Woodard MD Facility:[facility] Start: 11-17-2024 End: 11-17-2024 Bamboo flowsheet Lisandra Jimenez MD Work Phone: [facility] Start: 11-17-2024 End: 11-17-2024 Bamboo flowsheet Lisanrda Jimenez MD Work Phone: [facility] Start: 11-17-2024 End: 11-17-2024 ambulatory LISANDRA JIMENEZ Not Available Start: 11-17-2024 End: 11-17-2024 Office outpatient visit 15 minutes Lisandra Jimenez MD Work Phone: [facility] Comment on above: Atrophic vaginitis ( Primary Dx); Dysuria Start: 11-16-2024 End: 11-16-2024 Telephone encounter Lisandra Jimenez MD Work Phone: [facility] Start: 11-06-2024 End: 11-06-2024 ambulatory KINJAL URBANO Not Available Start: 11-06-2024 End: 11-06-2024 Telephone encounter Lisandra Jimenez MD Work Phone: [facility] Comment on above: Acute cystitis with hematuria (Primary Dx) Start: 10-16-2024 End: 10-16-2024 Patient encounter procedure Mena Morse NP Work Phone: [facility] Comment [...] Start: 10-16-2024 End: 10-16-2024 Patient encounter status Mena Morse BREAD SLICER MACHINE Work Phone: [facility] Start: 10-16-2024 End: 10-16-2024 Bamboo flowsheet Mena Morse BREAD SLICER MACHINE Work Phone: [facility] Start: 10-16-2024 End: 10-16-2024 Bamboo flowsheet Mena Morse BREAD SLICER MACHINE Work Phone: [facility] Start: 10-16-2024 End: 10-16-2024 ambulatory MENA MORSE Not Available Start: 10-08-2024 End: 10-08-2024 Follow-up encounter Kinjal Urbano BREAD SLICER MACHINE Work Phone: [facility] Start: 10-06-2024 End: 10-06-2024 ambulatory KINJAL URBANO Not Available Start: 10-06-2024 End: 10-06-2024 Office outpatient visit 25 minutes Kinjal Urbano BREAD SLICER MACHINE Work Phone: [facility] Comment on above: Dysuria (Primary Dx) ; Acute cystitis with hematuria Start: 08-31-2024 End: 08-31-2024 ambulatory Mere Woodard MD Facility: [facility] Start: 08-10-2024 End: 08-10-2024 ambulatory Mere Woodard [...] 03-30-2024 End: 03-30-2024 ambulatory Mere Woodard MD Facility:[facility] Start: 03-23-2024 End: 03-23-2024 ambulatory Mere Woodard MD Facility:[facility] Start: 03-03-2024 End: 03-03-2024 Refill Lisandra Jimenez MD Work Phone: [facility] Comment on above: Gastroesophageal ref lux disease without esophagitis; Mixed stress and urge urinary incontinence; Tachycardia; Age-related osteoporosis without current pathological fracture ([facility]) Start: 02-03-2024 End: 02-03-2024 Bamboo flowsheet Lisandra [...] 01-13-2024 Emergency department patient visit SERGIO JARVIS [facility] Start: 01-10-2024 End: 01-12-2024 ambulatory LISANDRA JIMENEZ [facility] Start: 01-10-2024 End: 01-10-2024 ambulatory DIANA [...] type Start: 01-07-2024 End: 01-07-2024 ambulatory LISANDRA JIMENEZ Not Available Start: 12-12-2023 End: 12-12-2023 ambulatory YANETH DUPREE Not Available Start: 12-10-2023 End: 12-10-2023 ambulatory BELÉN BOYCE Not Available Start: 12-04-2023 End: 12-04-2023 ambulatory BELÉN BOYCE Not Available Start: 12-02-2023 End: 12-02-2023 ambulatory BELÉN BOYCE Not Available Start: 11-27-2023 End: 11-27-2023 ambulatory BELÉN BOYCE Not Available Start: 11-25-2023 End: 11-25-2023 ambulatory BELÉN BOYCE Not Available Start: 11-20-2023 End: 11-20-2023 ambulatory YANETH DUPREE Not Available Start: 08-02-2023 Telephone encounter Maya Villalobos RN [facility] Comment on above: Records, transfer to [facility] Start: 06-11-2023 Refill Lisandra Price Work Phone: [facility] Start: 06-10-2023 Bamboo flowsheet Lisandra Jimenez MD Work Phone: [facility] Start: 06-10-2023 Bamboo flowsheet Lisandra Jimenez MD Work Phone: [facility] Start: 06-10-2023 End: 06-10-2023 Patient encounter procedure Lisandra Jimenez MD Work Phone: [facility] Comment on above: Routine general medi vicente examination at a health care facility (Primary Dx); Gastroesophageal reflux disease without esophagitis; Arthritis, lumbar spine; Primary osteoarthritis of left hip; Postoperative anemia due to acute blood loss; Age-related osteoporosis without current pathological fracture ([facility]) Start: 06-10-2023 End: 06-10-2023 Patient encounter status Lisandra Jimenez MD Work Phone: [facility] Healthcare Work Phone: Start: 06-06-2023 Refill Loli Yang Work Phone: [facility] Comment on above: Postnasal discharge Start: 06-05-2023 End: 06-05-2023 Office outpatient visit 15 minutes Linda Robins NP Work Phone: [facility] Comment on above: S/P total left [...] et rgnt non-auto w/o micrscp Kinjal Urbano BREAD SLICER MACHINE Work Phone: Start: 01-10-2024 STATUS COVID-19/FLU Jayne Gomez MD Work Phone: Start: 01-07-2024 Urnls dip stick/tabl et rgnt non-auto w/o micrscp Lisandra Jimenez MD Work Phone: Start: 06-05-2023 Radex spine lumbosac ral minimum 4 views Linda Robins BREAD SLICER MACHINE Work Phone: Plan of Treatment Date Care Activity Detail Author Start: 10-16-2025 Medicare Annual Wellness (AWV) Medicare Annual Wellness (AWV) [facility] Start: 02-17-2025 End: 02-17-2025 Patient encounter procedure 02/17/2025 9:40 AM EDT Office Visit [facility] [address] [facility] [place] [address] Lisandra Jimenez MD [address] [place], [place] [id number] [facility] Start: 12-28-2024 Influenza vaccination Influenza Vacc ine (#1) [facility] Start: 11-17-2024 End: 11-17-2025 Bacteria identified in Urine by Culture Urine culture (clean catch) Microbiology Routine Dysuria Expected: 11/17/2024 (Approximate), Expires: 11/17/2025 [facility] Work Phone: Comment on above: Expected: 11/17/2024 (Approximate), Expires: 11/17/2025 Start: 11-17-2024 End: 11-17-2025 Urinalysis complete panel - Urine Urinalysis with reflex microscopic (clean catch) Lab Routine Dysuria Expected: 11/17/2024 (Approximate), Expires: 11/17/2025 [facility] Comment on above: Expected: 11/17/2024 (Approximate), Expires: 11/17/2025 Start: 11-06-2024 End: 11-06-2024 Clinical Support 11/06/2024 4:00 PM EDT Clinical Support [facility] [address] [place] [address] Dysuria (Primary Dx) [facility] Comment on above: Dysuria (Primary Dx) Start: 10-16-2024 End: 10-16-2024 Patient encounter procedure 10/16/2024 2:30 PM EDT Office Visit [facility] [address] [place] [address] Mena Morse NP [address] [place] [address] Arrived [facility] Comment on above: Arrived Start: 10-16-2024 End: 10-16-2025 25-hydroxyvitamin D3 [Mass/volume] in Serum or Plasma Vitamin D 25 hydroxy Lab Routine Age-related osteoporosis without current pathological fracture Expected: 10/16/2024 (Approximate), Expires: 10/16/2025 [facility] Comment on above: Expected: 10/16/2024 (Approximate), Expires: 10/16/2025 Start: 10-16-2024 End: 10-16-2025 CBC W Auto Differential panel - Blood CBC and differential Lab Routine Routine general medical examination at a health care facility Gastroesophageal reflux disease without esophagitis Iron deficiency anemia, unspecified iron deficiency anemia type Expected: 10/16/2024 (Approximate), Expires: 10/16/2025 [facility] Work Phone: Comment on above: Expected: 10/16/2024 (Approximate), Expires: 10/16/2025 Start: 10-16-2024 End: 10-16-2025 Comprehensive metabolic 2000 panel - Serum or Plasma Comprehensive metabolic panel Lab Routine Routine general medical examination at a health care facility Gastroesophageal reflux disease without esophagitis Expected: 10/16/2024 (Approximate), Expires: 10/16/2025 [facility] Comment on above: Expected: 10/16/2024 (Approximate), Expires: 10/16/2025 Start: 06-10-2024 Medicare Annual Wellness (AWV) Medicare Annual Wellness (AWV) [facility] Start: 05-15-2024 End: 05-15-2024 Professional / ancillary services management 05/15/2024 10:00 AM EST Ancillary Procedure [facility] [address] [place] [phone] [facility] Start: 05-11-2024 End: 05-11-2024 [...] Office Visit [facility] [address] [place] [id number] Lisandra Jimenez MD [address] [facility] [place] [address] Arrived [facility] Comment on above: Arrived Start: 01-02-2024 Adult BMI Screening Adult BMI Screen ing [facility] Start: 12-29-2023 Influenza vaccination [facility] Start: 12-29-2023 Tobacco Screening Tobacco Screening [facility] Start: 12-09-2023 End: 12-09-2023 Patient encounter procedure 12/09/2023 9:40 AM EDT Office Visit [facility] [address] [place] [phone] Lisandra Jimenez MD [address] [facility] [place] [address] [facility] Start: 08-01-2023 Medicare Annual Wellness (AWV) Medicare Annual Wellness (AWV) [facility] Start: 07-30-2023 End: 07-30-2023 Patient encounter procedure 07/30/2023 9:00 AM EDT Office Visit [facility] [address] [place] [address] Lisandra Jimenez MD [address] [place] [address] [facility] Start: 07-01-2023 End: 07-01-2023 Patient encounter procedure 07/01/2023 9:00 AM EST Office Visit [facility] [address] [place] [address] Linda Robins BREAD SLICER MACHINE [address] [place] [address] [facility] Start: 06-26-2023 End: 06-26-2023 Patient encounter procedure 06/26/2023 10:00 AM EST Office Visit [facility] [address] [place] [address] Linda Robins BREAD SLICER MACHINE [address] [place] [address] [facility] [facility] Start: 06-10-2023 End: 06-10-2023 Patient encounter procedure [facility] Comment on above: Arrived Start: 02-10-2023 DTaP,Tdap and Td Vaccines (3 - Td or Tdap) DTaP,Tdap and Td Vaccines (3 - Td or Tdap) [facility] Start: 12-28-2022 COVID-19 Vaccine ( season) COVID-19 Vaccine ( season) [facility] Start: 2010 Fall Risk Screening Fall Risk Screen ing [facility] Start: 1957 Depression Screening Depression Scre ening [facility] Start: 1945 Medicare Annual Wellness Visit Medicare Annual Wellness Visit [facility] Bacteria identified in Urine by Culture Urine culture Microbiology Routine Dysuria Ordered: 10/06/2024 [facility] Work Phone: Comment on above: Ordered: 10/06/2024 Immunizations Immunization Date Immunization Notes Care Provider Fa antonio 02-03-2024 influenza, high dose seasonal, preservative-free Lisandra Jimenez MD Work Phone: [facility] 02-03-2024 influenza virus vacc ine, unspecified formulation Lisandra Jimenez MD Work Phone: [facility] 04-08-2023 RSV, recombinant, protein subunit RSVpreF, adjuvant reconstitu, 120mcg/0.5mL, PF (Arexvy) Lisandra Jimenez MD Work Phone: [facility] 01-28-2023 Influenza, High-dose Seasonal, Quadrivalent, Preservative Free Loli Rivera BREAD SLICER MACHINE Work Phone: [facility] Work Phone: 01-28-2023 influenza virus vacc ine, unspecified formulation Lisandra Jimenez MD Work Phone: [facility] 02-06-2022 Influenza, High-dose Seasonal, Quadrivalent, Preservative Free Loli Rivera [employer]READ [employer]IC[employer] MACHINE Work Phone: [facility] 02-06-2022 Moderna Bivalent Price ster Vaccination Loli Rivera BREAD SLICER MACHINE Work Phone: [facility] 02-06-2022 Moderna SARS-CoV-2 50mcg/0.5mL Booster Loli Rivera [employer]READ SLIC[employer] MACHINE Work Phone: [facility] 02-06-2022 influenza virus vacc ine, unspecified formulation Maya Villalobos RN [facility] 01-26-2021 Influenza, High-dose Seasonal, Quadrivalent, Preservative Free Loli Rivera BREAD SLIC[employer] MACHINE Work Phone: [facility] 01-27-2020 Influenza, High-dose Seasonal, Quadrivalent, Preservative Free Loli Rivera BREAD SLICER MACHINE Work Phone: [facility] 03-12-2019 zoster vaccine recombinant Loli Rivera BREAD SLICER MACHINE Work Phone: [facility] 01-26-2019 zoster vaccine, live Loli W olf BREAD SLICER MACHINE Work Phone: [facility] 01-22-2019 influenza, high dose seasonal, preservative-free Loli Rivera BREAD SLICER MACHINE Work Phone: [facility] 01-22-2019 Influenza, High-dose Seasonal, Quadrivalent, Preservative Free Loli Rivera BREAD SLICER MACHINE Work Phone: [facility] 01-22-2019 zoster vaccine recombinant Loli Rivera BREAD SLICER MACHINE Work Phone: [facility] 01-20-2018 influenza, high dose seasonal, preservative-free Loli Rivera BREAD SLICER MACHINE Work Phone: [facility] 01-20-2018 influenza, injectabl e, quadrivalent, preservative free Loli Rivera BREAD SLICER MACHINE Work Phone: [facility] 01-18-2017 influenza, high dose seasonal, preservative-free Loli Rivera BREAD SLICER MACHINE Work Phone: [facility] 01-18-2017 Influenza, High-dose Seasonal, Quadrivalent, Preservative Free Loli Rivera BREAD SLICER MACHINE Work Phone: [facility] 01-17-2016 influenza, high dose seasonal, preservative-free Loli Rivera BREAD SLICER MACHINE Work Phone: [facility] 01-17-2016 pneumococcal conjuga te vaccine, 13 valent Lolibrady Rivera BREAD SLICER MACHINE Work Phone: [facility] 01-12-2015 influenza, high dose seasonal, preservative-free Loli Rivera BREAD SLICER MACHINE Work Phone: [facility] 01-11-2014 influenza, high dose seasonal, preservative-free Loli Rivera BREAD SLICER MACHINE Work Phone: [facility] 02-10-2013 tetanus and diphther ia toxoids, adsorbed, preservative free, for adult use (5 Lf of tetanus toxoid and 2 Lf of diphtheria toxoid) Lolibrady Rivera BREAD SLICER MACHINE Work Phone: [facility] 02-10-2013 tetanus toxoid, redu jessica diphtheria toxoid, and acellular pertussis vaccine, adsorbed Loli Rivera BREAD SLICER MACHINE Work Phone: [facility] 02-06-2013 seasonal influenza, intradermal, preservative free Loli Rivera BREAD SLICER MACHINE Work Phone: [facility] 12-23-2012 zoster vaccine, live Loli W olf BREAD SLICER MACHINE Work Phone: [facility] 12-12-2012 pneumococcal polysaccharide vaccine, 23 valent Loli Rivera BREAD SLICER MACHINE Work Phone: [facility] 02-06-2012 influenza, seasonal, injectable, preservative free Loli Rivera BREAD SLICER MACHINE Work Phone: [facility] 04-17-2004 influenza, seasonal, injectable Loli Rivera BREAD SLICER MACHINE Work Phone: [facility] 04-27-2003 influenza, seasonal, injectable Loli Rivera BREAD SLICER MACHINE Work Phone: [facility] 04-27-2002 influenza, seasonal, injectable Loli Rivera BREAD SLICER MACHINE Work Phone: [facility] 04-01-2001 influenza, seasonal, injectable Loli Rivera BREAD SLICER MACHINE Work Phone: [facility] 03-08-1999 pneumococcal polysaccharide vaccine, 23 valent Loli Rivera BREAD SLICER MACHINE Work Phone: [facility] Payers Date Payer Category Payer Private Health Insurance 2021 Medicaid [employer] MEDICARE A DVANTAGE [id number] 2021 Medicare [id number] 2021 Medicare [id number] 1945 Unknown [id number] 2.16.840.1.987770.3.579.2. 1286 1945 Unknown [id number] 2.16.840.1.438947.3.579.2. 1286 1945 Unknown [id number] 2.16.840.1.105690.3.579.2. 1258 1945 Unknown [id number] 2.16.840.1.227808.3.579.2. 125 1945 Unknown [id number] 2.16.840.1.738541.3.579.2. 1258 1945 Unknown [id number] 2.16.840.1.437567.3.579.2. 1258 1945 Unknown [id number] 2.16.840.1.873190.3.579.2. 1258 1945 Unknown [id number] 2.840.1.504536.3.579.2. 1258 1945 Unknown [id number] 2.16.840.1.945207.3.579.2. 1258 1945 Unknown [id number] 2.16.840.1.284168.3.579.2. 1258 1945 Unknown [id number] 2.840.1.684289.3.579.2. 1258 1945 Unknown [id number] 2.16840.1.463508.3.579.2. 1258 1945 Unknown [id number] 2.16.840.1.546196.3.579.2. 1258 1945 Unknown [id number] 2.16.840.1.466916.3.579.2. 1258 1945 Unknown [id number] 2.16.840.1.284966.3.579.2. 1258 1945 Unknown [id number] 2.16.840.1.049921.3.579.2. 1258 1945 Unknown [id number] 2.16.840.1.967573.3.579.2. 1259 1945 Unknown [id number] 2.16.840.1.485900.3.579.2. 1259 1945 Unknown [id number] 2.16.840.1.137796.3.579.2. 196 1945 Unknown [id number] 2.16.840.1.402920.3.579.2. 196 1945 Unknown [id number] 2.16.840.1.892308.3.579.2. 196 1945 Unknown [id number] 2.16.840.1.723983.3.579.2. 196 1945 Unknown [id number] 2.16.840.1.456585.3.579.2. 196 Social History Date Type Detail Facility Start: 05-24-2022 End: 10-10-2022 Tobacco smoking status [facility] Never smoked tobacco [facility] Start: [...] partner or ex-partner? No [facility] Attends Islam Services Not on file [facility] Do you belong to any clubs or organizations such as episcopal groups, unions, fraternal or athletic groups, or [...] 1945 Sex Assigned At Not on file [facility] Start: 07-11-2022 Gender identity Identifies as female gender (finding) [facility] Start: 12-28-2022 Alcohol intake Current non-drinker of alcohol (finding) [facility] Medical Equipment Procedure Code Equipment Code Equipment Origin al Text Equipment Identifier Dates Lens Iol Ultrase rt 11.5d - [id number] - [id number] Start: 04-03-2018 Lens Iol Ultrase rt 13.0d - [id number] - [id number] Start: 08-28-2018 Head Fem 32mm 0m m Vrsy Cocr Hip Rpl [id number] - [id number] - [id number], [id number] FDA Start: 12-26-2022 Screw Bn 15mm 6. [address]mm [address] Hip Actb Trlg Strl Rpl [id number] - [id number] - [id number] Start: 12-26-2022 Goals Date Patient Goal Desired Activity /State Personal health goal Comment on above: Formatting of this n ote might be different from the original. Evaluation of progress towards goal: Home with support from friend (staying with pt) and [facility] Functional Status Date Assessment Result Facility 10-16-2024 Patient Health Quest ionnaire 2 item (PHQ-2) [Reported] [facility] Clinical Notes 06-05-2023 to 11-17-2024 Lisandra Jimenez [...] months from now. documented in this encounter [facility] 11-16-2024 Telephone encounter Note Vm was left: Ks, my name is Teresa Hadley. I am calling for Marck Maria birthday [birth year]. She has been in to you a few times recently and she just finished her antibiotic a few days ago and she is still having some burning. Um, so I just wanted to relay that message to Dr Jimenez. Um, you can give her a call back [phone], thanks. [facility] 11-16-2024 Miscellaneous Notes Vm was left: Ks, my name is Teresa Hadley. I am calling for Marck Maria birthday [birth year]. She has been in to you a few times recently and she just finished her antibiotic a few days ago and she is still having some burning. Um, so I just wanted to relay that message to Dr Jimenez. Um, you can give her a call back [phone], thanks. documented in this encounter [facility] 11-06-2024 Telephone encounter Note Ks, I am calling for Tr Maria. She was just in had some problems with ta UTI They prescribed an antibiotic and she is still having trouble today So I think it is coming back. If you could call back to her house number [phone], we would appreciate it. Thank you. [facility] 11-06-2024 Miscellaneous Notes Hi, I am calling for Tr Maria. She was just in had some problems with ta UTI They prescribed an antibiotic and she is still having trouble today So I think it is coming back. If you could call back to her house number [phone], we would appreciate it. Thank you. documented in this encounter [facility] 10-16-2024 History of Present illness Narrative [...] her Fosamax medication. She is currently taking [id number] iron supplements for iron deficiency anemia. 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 She is not seeing orthopedics [...] or more days a week?: Yes (does [employer] class) How confident are you that you [...] sooner if needed. documented in this encounter [facility] 10-08-2024 Telephone encounter Note Patient calling back- symptoms have improved and she is doing better. She started the antibiotic yesterday. [facility] 10-08-2024 Miscellaneous Notes Patient calling back- symptoms have improved and she is doing better. She started the antibiotic yesterday. Ask patient if her symptoms have improved documented in this encounter [facility] 10-08-2024 Progress note Formatting of t his note might be different from the original. Ask patient if her symptoms have improved [facility] 10-06-2024 History of Present illness Narrative [...] for 10 days. documented in this encounter [facility] 05-11-2024 History of Present illness Narrative [...] physical therapy. She used to participate in [employer] classes, which included weightlifting, but discontinued this [...] in weight-bearing exercises, such as resuming her [employer] classes, to stimulate bone health. A bone density test will be scheduled to monitor her condition. PROCEDURE The patient underwent hip replacement surgery approximately 2 years ago. documented in this encounter [facility] 05-05-2024 Telephone encounter Note Voicemail left at 3:55 pm. I left her a vm to schedule an appt. Ks, this is Marck Maria for 45. I [...] why that is happening. So it is [id number] Neri Maria [id number]. Thank you very much. Peter lemus. [facility] 05-05-2024 Miscellaneous Notes Voicemail left at 3:55 pm. I left her a vm to schedule an appt. Hi, this is Marck Maria for 45. I [...] why that is happening. So it is [phone] Neri Maria [id number]. Thank you very much. Peter lemus. documented in this encounter [facility] 03-03-2024 Telephone encounter Note Approvals with refills [facility] 03-03-2024 Miscellaneous Notes Approvals with refills documented in this encounter [facility] 02-03-2024 History of Present illness Narrative [...] challenging. She also consumes iced coffee from [employer] SUBJECTIVE: MEDICATIONS: Current Outpatient Medications Medication Instructions [...] good preventative measure. documented in this encounter [facility] 01-10-2024 History of Present illness Narrative [...] COVID-19 GERD (gastroesophageal reflux disease) Hypoglycemia Osteoporosis ([facility]) Rotator cuff Toe fracture R 5th toe [...] follow-ups on file. documented in this encounter [facility] 01-07-2024 History of Present illness Narrative [...] Orders Flu vaccine, high dose seasonal, PF (YBS339) (Fluzone High Dose) Urinary incontinence, unspecified type Relevant Orders POCT Urinalysis dipstick D.c sugary ice coffees documented in this encounter [facility] 08-02-2023 Miscellaneous Notes Received a phone call from [facility] for patient records to be transferred. documented in this encounter [facility] 08-02-2023 Telephone encounter Note Received a phone call from [facility] for patient records to be transferred. [facility] 06-11-2023 Telephone encounter Note PT Calling to check status of this request, unsure as how to explain the denial of the refill. [facility] 06-11-2023 Miscellaneous Notes PT Calling to check status of this request, unsure as how to explain the denial of the refill. Medication refused due to failing protocol. Requested Prescriptions Pending Prescriptions Disp Refills methylPREDNISolone (Medrol Dospak) 4 MG tablets 21 tablet Sig: Follow schedule on package instructions There is no refill protocol information for this order documented in this encounter [facility] 06-11-2023 Telephone encounter Note Medication refused due to failing protocol. Requested Prescriptions Pending Prescriptions Disp Refills methylPREDNISolone (Medrol Dospak) 4 MG tablets 21 tablet Sig: Follow schedule on package instructions There is no refill protocol information for this order [facility] 06-10-2023 History of Present illness Narrative Marck [...] Recheck in 6months documented in this encounter [facility] 06-05-2023 History of Present illness Narrative [...] anemia Age-related osteoporosis without current pathological fracture ([facility]) documented [facility] Diagnosis COVID-19- Primary Degeneration of intervertebral disc of lumbar region, unspecified whether pain present Encounter for immunization documented in this encounter [facility]* Diagnosis Gastroesophageal reflux disease without esophagitis Esophageal reflux Mixed stress and urge urinary incontinence Mixed incontinence urge and stress (male)(female) Tachycardia Unspecified tachycardia Age-related osteoporosis without current pathological fracture ([facility]) documented in this encounter [facility]* Diagnosis COVID-19- Primary Cough, unspecified type Nasal congestion Other diseases of nasal cavity and sinuses Dehydration Tachycardia Unspecified tachycardia documented in this encounter [facility]* Diagnosis Chronic right-sided low back pain without sciatica- Primary Encounter for immunization Urinary incontinence, unspecified type documented in this encounter [facility]* Diagnosis Fall, initial encounter- Primary Osteopenia of multiple sites Leg weakness, bilateral Muscle weakness (generalized) documented in this encounter [facility]* Diagnosis Dysuria- Primary Acute cystitis with hematuria documented in this encounter [facility]* Diagnosis Medicare annual wellness visit, subsequent- Primary Routine general medical examination at a health care facility Age-related osteoporosis without current pathological fracture Gastroesophageal reflux disease without esophagitis Esophageal reflux Primary osteoarthritis of left hip Iron deficiency anemia, unspecified iron deficiency anemia type Neoplasm of unspecified behavior of bone, soft tissue, and skin documented in this encounter [facility]* Diagnosis Dysuria- Primary Acute cystitis with hematuria- Primary documented in this encounter [facility]* Diagnosis Atrophic vaginitis- Primary Postmenopausal atrophic vaginitis Dysuria documented in this encounter [facility]ructionsNot on [facility]ocument[facility] Purpose Family History No Family History Records FoundNo Family History Records FoundNo Family History Records FoundNo Family History Records Found Advance Directives No Advanced Directives Records FoundDocuments on File Type Date Recorded Patient Bsw Expl anation Living Will 01/17/2023 11:55 AM Durable Power of 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 Installer 01/17/2023 11:54 AM Latest Code Status on File Code Status Date Activated Date Inactivated Comments Full Code 12/28/2022 6:14 PM 01/01/2023 3:49 PM Code Status History Code Status Date Activated Date Inactivated Comments Full Code 12/26/2022 10:18 AM 12/27/2022 7:36 PM Additional Source Comments INFORMATION SOURCE (unrecogn ized section and content) DATE CREATED AUTHOR 04/10/2021 [facility] dical Specialist DATE CREATED AUTHOR AUTHOR'S ORGANIZ ATION 01/13/2024 [facility] DATE CREATED AUTHOR AUTHOR'S ORGANIZ ATION 11/18/2024 [facility] dical Specialists EPIC DATE CREATED AUTHOR AUTHOR'S ORGANIZ ATION 01/10/2025 [facility] Reason for Visit (unrecogniz ed section and content) Reason Comments Med Refill Reason Comments Medicare Annual Wellness Visit Subsequen t Reason Comments Follow-up Patient here for 6 m [facility] follow up. She was in the ER [...] Reason Onset Date Comments Records, transfer to [facility] 08/02/2023 Reason Comments UTI Reason Comments Medicare Annual Wellness Visit Subsequen t Dry skin Face, dry patches Reason Comments Urinary Problem Burning with urinati on, negative culture. Care Teams (unrecognized sec tion and content) Product Development Director Relationship Specialty Start Date End Date Benji Cantrell MD [address] [facility] [address] [place] [address] PCP - [employer] 04/29/22 Lisandra Jimenez MD [address] [place] [address] PCP - General Family Medicine 09/10/22 Product Development Director Relationship Specialty Start Date End Date Benji Cantrell MD [address] [facility] [address] [place] [address] PCP - [employer] 04/29/22 Lisandra Jimenez MD [address] [place] [address] PCP - General Family Medicine 09/10/22 Product Development Director Relationship Specialty Start Date End Date Benji Cantrell MD [address] [facility] [address] [place] [address] PCP - [employer] 04/29/22 Lisandra Jimenez MD [address] [place] [address] PCP - General Family Medicine 09/10/22 Product Development Director Relationship Specialty Start Date End Date Benji Cantrell MD [address] [facility] [address] [place] [address] PCP - [employer] 04/29/22 Lisandra Jimenez MD [address] [facility] [place] [address] PCP - General Family Medicine 09/10/22 Product Development Director Relationship Specialty Start Date End Date Benji Cantrell MD [address] [facility] [address] [place] [address] PCP - [employer] 04/29/22 Lisandra Jimenez MD [address] [facility] [place] [address] PCP - General Family Medicine 09/10/22 Product Development Director Relationship Specialty Start Date End Date Benji Cantrell MD [address] [facility] [address] [place] [address] PCP - [employer] 04/29/21 Lisandra Jimenez MD [address] [place] [address] PCP - General Family Medicine 09/10/22 Product Development Director Relationship Specialty Start Date End Date Benji Cantrell MD [address] [place] [address] PCP - [employer] 04/29/21 Lisandra Jimenez MD [address] [place] [address] PCP - General Family Medicine 09/10/22 Product Development Director Relationship Specialty Start Date End Date Benji Cantrell MD [address] [place] [address] PCP - [employer] 04/29/21 Lisandra Jimenez MD [address] [place] [address] PCP - General Family Medicine 09/10/22 Product Development Director Relationship Specialty Start Date End Date Benji Cantrell MD [address] [facility] [address] [place] [address] PCP - [employer] 04/29/21 Lisandra Jimenez MD [address] [place] [address] PCP - General Family Medicine 09/10/22 Product Development Director Relationship Specialty Start Date End Date Benji Cantrell MD [address] [facility] [address] [place] [address] PCP - [employer] 04/29/21 Lisandra Jimenez MD [address] [facility] [place] [address] PCP - General Family Medicine 09/10/22 Product Development Director Relationship Specialty Start Date End Date Benji Cantrell MD [address] [facility] [address] [place] [address] PCP - [employer] 04/29/21 Lisandra Jimenez MD [address] [facility] [place] [address] PCP - General Family Medicine 09/10/22 Product Development Director Relationship Specialty Start Date End Date Benji Cantrell MD [address] [facility] [place] [address] PCP - [employer] 04/29/21 Lisandra Jimenez MD [address] [facility] [place] [address] PCP - General Family Medicine 09/10/22 Product Development Director Relationship Specialty Start Date End Date Benji Cantrell MD [address] [facility] [place] [address] PCP - [employer] 04/29/21 Lisandra Jimenez MD [address] [facility] [place] [address] PCP - General Family Medicine 09/10/22 Product Development Director Relationship Specialty Start Date End Date Benji Cantrell MD [address] [facility] [place] [address] PCP - [employer] 04/29/21 Lisandra Jimenez MD [address] [facility] [place] [address] PCP - General Family Medicine 09/10/22 Product Development Director Relationship Specialty Start Date End Date Benji Cantrell MD [address] [place] [address] PCP - [employer] 04/29/21 Lisandra Jimenez MD [address] [place] [address] PCP - General Family Medicine 09/10/22 Product Development Director Relationship Specialty Start Date End Date Lisandra Jimenez MD [address] [place] [address] PCP - General Family Medicine 11/12/16 Product Development Director Relationship Specialty Start Date End Date Benji Cantrell MD [address] [place] [address] PCP - [employer] 04/29/21 Lisandra Jimenez MD [address] [place] [facility] [address] PCP - General Family Medicine 09/10/22 Product Development Director Relationship Specialty Start Date End Date Benji Cantrell MD [address] [place] [address] PCP - [employer] 04/29/21 Lisandra Jimenez MD [address] [place] [address] PCP - General Family Medicine 09/10/22 Product Development Director Relationship Specialty Start Date End Date Benji Cantrell MD [address] [place] [address] PCP - [employer] 04/29/21 Lisandra Jimenez MD [address] [place] [address] PCP - General Family Medicine 09/10/22 FOR [...] BE BASED ON THE PRIMARY CLINICAL RECORDS. Pearls of [employer] [facility]. provides no warranty or guarantee of the accuracy or completeness of information in this document.
--- NOTE | 2025-01-14 10:51 | PM.CN ---
Consult Note: HPI Data of Consult Patient: known to practice within the last 3 years Consult date: 01/14/25 Requesting Physician: Teresa Lynn NP Primary Care Provider: YOLA AMES Consult Narrative Reason for consult: low back pain Narrative: Marck galindo pleasant 79 year old female presents for evaluation of chronic low back pain unresponsive to > 6 weeks of PT/HEP, heat, ice, tylenol, NSAIDs. Pain today 1/10 aching, noting moderate to severe pain with sitting too long, standing, car ride, stairs, activity. notes improvement with heat. recently underwent left L2/3 L3/4 TFESI with mild relief per pt. denies falls/injury since last visit. cc:: CC: Teresa Lynn NP Review of Systems ROS Musculoskeletal Reports: back pain and joint pain; Denies: extremity pain PFSH PFSH Medical History (Updated 09/10/24 @ 09:54 by Teresa Lynn NP) Low back pain ?M54.50 - Low back pain, unspecified (ICD-10) Surgical History History of hip replacement ?Z96.649 - Presence of unspecified artificial hip joint (ICD-10) Meds Home Medications and Allergies Home Medications ?Medication ?Instructions ?Recorded ?Confirmed ?Type acetaminophen 650 mg 650 mg PO Q12H PRN pain 08/19/23 01/04/25 History tablet,extended release (Tylenol Arthritis Pain) alendronate 70 mg tablet 70 mg PO QWEEK 08/19/23 01/04/25 History famotidine 20 mg tablet 20 mg PO DAILY 08/19/23 01/04/25 History ferrous sulfate 325 mg (65 mg 325 mg PO DAILY 08/19/23 01/04/25 History iron) tablet (Feosol) metoprolol succinate 25 mg 25 mg PO BID 08/19/23 01/04/25 History tablet,extended release 24 hr tolterodine 2 mg tablet 2 mg PO DAILY 08/19/23 01/04/25 History lidocaine 5 % topical patch 1 patch topical DAILY #30 ea 10/10/23 01/04/25 Rx tramadol 50 mg tablet 50 mg PO BID PRN pain, severe #14 07/27/24 01/04/25 Rx tabs Allergies Allergy/AdvReac Type Severity Reaction Status Date / Time No Known Drug Allergies Allergy Verified 01/04/25 13:03 Exam Constitutional Documenting provider has reviewed patient's vital signs: yes Common normals: no apparent distress, oriented x3, healthy appearing, alert and well nourished General appearance: cooperative HENMT Common normals: normocephalic, hearing grossly normal bilaterally and moist oral mucous membranes Head and scalp: normocephalic Eye Common normals: PERRL Pupil: PERRL Neck & C-Spine Common normals: full ROM General: normal visual inspection Chest Common normals: inspection of chest normal Respiratory Common normals: normal respiratory effort, no retractions and no use of accessory muscles Back & Pelvis Lumbar spine/lower back: ROM limited, pain with ROM, lumbar spinal tenderness and straight leg raise negative bilaterally Sacroiliac joints: SI joint(s) abnormal Other: left sij positive leeann(patricks), gaenslens, thigh thrust, compression test strength 5/5 in BLE sensation intact BLE Neuro Common normals: oriented x3 Sensorium/orientation: alert Psych Common normals: mental status grossly normal, thought process normal, cooperative, affect normal, speech normal and activity/motor behavior normal Speech: normal speech Thought process: normal thought process Results Additional Findings Additional findings: If on a controlled substance or opioids, I have checked an [place] report on this patient and there are no aberrancies noted in the prescribing history.??If on a controlled substance or opioid a drug screen was completed and reviewed within the last year, and if there has not been a drug screen completed we ordered one today to monitor higher risk, state monitored pain medication use. As part of providing excellent, safe, comprehensive care, the following was completed at our patient's visit: 1. A medication reconciliation and review to ensure accurate knowledge of current/active medications, including asking our patients to inform us about any [id number] medications or herbal remedies/nutritional supplements/alternative remedies. 2. A review to specifically ensure our patients have had annual screening for screening for depression, screening for tobacco use, and screening for unhealthy alcohol use. For concerning screenings had a discussion with the patient, provided patient education, and recommended follow-up with primary care provider when appropriate. If patient noted with a risk of falling, they received education on strength, gait, and balance training to prevent future risk of falling. Portions of this note may have been carried over from the previous visit and updated as appropriate. Please note this office utilizes paper charting in addition to the electronic medical record. A list of current medications, vitals, and PMH is available there as the clinical staff outside of myself do not have access to [employer] charting during the clinic day operations. As part of providing quality comprehensive care the current medications, vitals, and PMH were reviewed in the paper chart. Assessment and Plan Assessment and Plan (1) Sacroiliitis: Assessment and Plan: The patient has had over 3 months of moderate to severe left low back and SIJ pain with functional impairment and inadequate response to conservative care including NSAIDS (unless there are contraindication such as concurrent blood thinners), multiple oral or topical pain medications, and home exercise program/physical therapy.? Patient has completed >6 weeks of guided home exercise program and/or formal physical therapy program without relief of their symptoms.? The Oswestry Disability Index was completed, and the patient scored a 10%.?previously 31% (2) Lumbar stenosis with neurogenic claudication: (3) Chronic use of opiate drug for therapeutic purpose: Plan repeat left SIJ injection under fluoroscopy, prior injection provided 50% improvement at least 3 months continue current medications f/u after injection
== END 2025-01-14 10:40 | disposition home or self-care (01) ==
LOC: PM 10:40
PROVIDERS: PCP Family Medicine; Visit Provider Nurse Practitioner
DX: M46.1 Sacroiliitis, not elsewhere classified (principal); M48.062 Spinal stenosis, lumbar region with neurogenic claudication; Z79.891 Long term (current) use of opiate analgesic
CPT/HCPCS: G0463

== ENCOUNTER 2025-02-08 11:55 | Day surgery (SDC) | payer MEDICARE, SELFPAY ==
--- OUTSIDE RECORDS SUMMARY | 2025-02-08 12:00 | XMS_ITS | CCD ---
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 Name Role Phone Benji Cantrell MD Unavailable [phone] Lisandra Jimenez MD Primary Care Provider LISANDRA JIMENEZ Primary Care Unavailable SERGIO JARVIS Attending Unavailable CHRISKELSEY Kwong Admitting Unavailable SERGIO JARVIS Attending Unavailable SERGIO JARVIS Referring Unavailable LISANDRA JIMENEZ Primary Care Unavailable Benji Cantrell MD Unavailable [phone] Lisandra Jimenez MD Primary Care Provider [phone] KINJAL URBANO Attending Unavailab MENA Stringer Attending Unavailable YANETH DUPREE Attending Unavailable HUI, LISANDRA F Referring Unavailable BOYCEBELÉN Attending Unavailable [...] (Antibiotic) Drug Allergy 09-02-19 Other (See Comments) [facility] Healthcare (1 source) diphenhydrAMINE; Translations: [DIPHENHYDRAMINE [...] UA Negative Negative - 4(70) +++ mg/dL [facility] Blood, UA Positive Negative - 50 Dallin/mcL [facility] Clarity, UA Clear [facility] re Color, UA Yellow [facility] Glucose, UA Negative Negative - 1999(110) ++++ mg/dL [facility] Interpretation and review of laboratory results Abnormal [facility] Ketones, UA Negative Negative - 160(16) ++++ mg/dL [facility] Leukocytes, UA 1+ Negative - 500+++ José/mcL [facility] Nitrite, UA Negative Negative - Positive [facility] pH, UA 5 5 - 9 [facility] e Protein, UA Negative Negative - 1999(20) ++++ mg/dL [facility] Spec Grav, UA 1.015 1 - 1.03 [facility] Urobilinogen, UA 1.0 0.2 - 12 mg/dL [facility] Urinalysis macro (dipstick) panel (U)on 10-06-2024 Bilirubin, UA Negative Negative - 4(70) +++ mg/dL [facility] Blood, UA Positive Negative - 50 Dallin/mcL [facility] Clarity, UA Clear [facility] re Color, UA Yellow [facility] Glucose, UA Negative Negative - 1999(110) ++++ mg/dL [facility] Ketones, UA Negative Negative - 160(16) ++++ mg/dL [facility] Leukocytes, UA Positive Negative - 500+++ José/mcL [facility] Nitrite, UA Negative Negative - Positive [facility] pH, UA 5 5 - 9 [facility] Protein, UA Positive Negative - 1999(20) ++++ mg/dL [facility] Spec Grav, UA 1 1 - 1.03 [facility] Urobilinogen, UA 1.0 0.2 - 12 mg/dL [facility] DEXA BONE DENSITYon 05-15-19 25 [...] ABSOLUTE BASOPHIL 0.0 X10E9/L Normal 0.0-0.2 [facility] Comment on above: Performed By: #### C BCA, CMP, 40215-5 #### [facility] ([id number]) [address] [place] [address] ABSOLUTE NEUTROPHIL 5.0 X10E9/L Normal 1.5-6.6 [facility] Comment on above: Performed By: #### Deanna BROWN CMP, 60488-8 #### [facility] ([id number]) [address] [place] [address] 43740 Basophils/100 WBC (Bld) 0.2 % Normal [facility] Comment on above: Performed By: #### Deanna BROWN CMP, 34178-5 #### [facility] ([id number]) [address] [place] [address] 49725 Eosinophils (Bld) [#/Vol] 0.1 10*3/uL Normal 0.0-0.4 [facility] Comment on above: Performed By: #### Deanna BROWN CMP, 82461-0 #### [facility] ([id number]) [address] [place] [address] 91036 Eosinophils/100 WBC (Bld) 1.2 % Normal [facility] Comment on above: Performed By: #### Deanna BROWN [facility], 63815-5 #### [facility] ([id number]) [address] [place] [address] 80490 Erythrocyte distribution width (RBC) [Ratio] 13.4 % Normal 11.5-15.0 [facility] Comment on above: Performed By: #### Deanna BROWN CMP, 85969-7 #### [facility] ([id number]) [address] [place] [address] 39095 Hematocrit (Bld) [Volume fraction] 39.6 % Normal 35-47 [facility] Comment on above: Performed By: #### Deanna BROWN CMP, 71015-7 #### [facility] ([id number]) [address] [place] [address] 73622 Hemoglobin (Bld) [Mass/Vol] 13.2 g/dL Normal 11.7-15.5 [facility] Comment on above: Performed By: #### Deanna BROWN CMP, #### [facility] ([id number]) [address] [place] [address] 62375 Lymphocytes (Bld) [#/Vol] 1.0 10*3/uL Normal 1.0-3.5 [facility] Comment on above: Performed By: #### Deanna BROWN CMP, #### [facility] ([id number]) [address] [place] [address] 73533 Lymphocytes/100 WBC (Bld) 14.2 % Normal [facility] Comment on above: Performed By: #### Deanna BROWN CMP, #### [facility] ([id number]) [address] [place] [address] 14393 MCH (RBC) [Entitic mass] 31.0 pg Normal 27-34 [facility] Comment on above: Performed By: #### Deanna BROWN [facility], #### [facility] ([id number]) [address] [place] [address] 71894 MCHC (RBC) [Mass/Vol] 33.4 g/dL Normal 32-36 [facility] Comment on above: Performed By: #### Deanna BROWN CMP, #### [facility] ([id number]) [address] [place] [address] 32936 MCV (RBC) [Entitic vol] 93 fL Normal 80-100 [facility] Comment on above: Performed By: #### Deanna BROWN CMP, #### [facility] ([id number]) [address] [place] [address] 22335 Monocytes (Bld) [#/Vol] 1.2 10*3/uL High 0-0.9 [facility] Comment on above: Performed By: #### Deanna BROWN CMP, #### [facility] ([id number]) [address] [place] [address] 63982 Monocytes/100 WBC (Bld) 16.8 % Normal [facility] Comment on above: Performed By: #### C BCA, CMP, 98775-5 #### [facility] ([id number]) [address] [place] [address] 62884 Neutrophils/100 WBC (Bld) 67.6 % Normal [facility] Comment on above: Performed By: #### Deanna BROWN, CMP, 10699-0 #### [facility] ([id number]) [address] [place] [address] 24452 Platelet mean volume (Bld) [Entitic vol] 8.6 fL Normal 7-12 [facility] Comment on above: Performed By: #### Deanna BROWN, CMP, 78692-8 #### [facility] ([id number]) [address] [place] [address] 83077 Platelets (Bld) [#/Vol] 172 10*3/uL Normal 150-450 [facility] Comment on above: Performed By: #### Deanna BROWN, CMP, 89773-7 #### [facility] ([id number]) [address] [place] [address] 79716 RBC COUNT 4.26 X10E12/L Normal 3.80-5.20 [facility] Comment on above: Performed By: #### Deanna BROWN, CMP, 82205-9 #### [facility] ([id number]) [address] [place] [address] 16625 WBC (Bld) [#/Vol] 7.3 10*3/uL Normal 4.0-11.0 [facility] Comment on above: Performed By: #### Deanna BROWN, CMP, 59698-6 #### [facility] ([id number]) [address] [place] [address] [place] [address] COMPREHENSIVE METABOLIC PANE Cruzito 01-12-2024 Albumin [Mass/Vol] 3.8 g/dL Normal 3.2-5.3 [facility] Comment on above: Performed By: #### B ANJUM, LIVR, CBCA #### [facility] ([id number]) [address] [place] [address] 64764 ALP [Catalytic activity/Vol] 49 U/L Normal 39-130 [facility] Comment on above: Performed By: #### B ANJUM, LIVR, CBCA #### [facility] ([id number]) [address] [place] [address] 07450 ALT [Catalytic activity/Vol] 28 U/L Normal 0-31 [facility] Comment on above: Performed By: #### B ANJUM, LIVR, CBCA #### [facility] ([id number]) [address] [place] [address] 71363 Anion gap [Moles/Vol] 9 mmol/L Normal 5-15 [facility] Comment on above: Performed By: #### B ANJUM LIVR, CBCA #### [facility] ([id number]) [address] [place] [address] 61391 AST [Catalytic activity/Vol] 31 U/L Normal 0-41 [facility] Comment on above: Performed By: #### B ANJUM, LIVR, CBCA #### [facility] ([id number]) [address] [place] [address] 66784 Bilirubin [Mass/Vol] 0.4 mg/dL Normal 0.3-1.2 [facility] Comment on above: Performed By: #### B MP, LIVR, CBCA #### [facility] ([id number]) [address] [place] [address] 87345 Calcium [Mass/Vol] 8.5 mg/dL Normal 8.5-10.5 [facility] Comment on above: Performed By: #### B ANJUM LIVR, CBCA #### [facility] ([id number]) [address] [place] [address] 70721 Chloride [Moles/Vol] 104 mmol/L Normal 98-109 [facility] Comment on above: Performed By: #### B ANJUM LIVR, CBCA #### [facility] ([id number]) [address] [place] [address] 78154 CO2 [Moles/Vol] 25 mmol/L Normal 22-32 [facility] Comment on above: Performed By: #### B ANJUM LIVR, CBCA #### [facility] ([id number]) [address] [place] [address] 29014 Creatinine [Mass/Vol] 0.79 mg/dL Normal 0.40-1.00 [facility] Comment on above: Result Comment: METH OD TRACEABLE TO IDMS STANDARD Performed By: #### B ANJUM LIVNaima, CBCA #### [facility] ([id number]) [address] [place] [address] 66134 GFR/1.73 sq M.predicted among non-blacks MDRD (S/P/Bld) [Vol rate/Area] 77 mL/min/{1.73_m2} Normal >59 [facility] Comment on above: Result Comment: Reported eGFR is based on the CKD-EPI 2020 equation that does not use a race coefficient. Performed By: #### B ANJUM LIVR, CBCA #### [facility] ([id number]) [address] [place] [address] 12322 Glucose [Mass/Vol] 78 mg/dL Normal 65-99 [facility] Comment on above: Performed By: #### B ANJUM, LIVR, CBCA #### [facility] ([id number]) [address] [place] [address] 45546 Potassium [Moles/Vol] 3.7 mmol/L Normal 3.5-5.0 [facility] Comment on above: Performed By: #### B MP, LIVR, CBCA #### [facility] ([id number]) [address] [place] [address] 90627 Protein [Mass/Vol] 6.8 g/dL Normal 6.0-8.0 [facility] Comment on above: Performed By: #### B MP, LIVR, CBCA #### [facility] ([id number]) [address] [place] [address] 11315 Sodium [Moles/Vol] 138 mmol/L Normal 134-146 [facility] Comment on above: Performed By: #### B MP, LIVR, CBCA #### [facility] ([id number]) [address] [place] [address] 60128 Urea nitrogen [Mass/Vol] 18 mg/dL Normal 5-27 [facility] Comment on above: Performed By: #### B MP, LIVR, CBCA #### [facility] ([id number]) [address] [place] [address] 59813 MAGNESIUMon 01-12-2024 Magnesium [Mass/Vol] 2.2 mg/dL Normal 1.8-2.6 [facility] Comment on above: Performed By: #### B MP, LIVR, CBCA #### [facility] ([id number]) [address] [place] [address] 16680 CBC AND AUTO DIFFon 01-11-20 24 ABSOLUTE BASOPHIL 0.0 X10E9/L Normal 0.0-0.2 [facility] Comment on above: Performed By: #### C BCA, CMP, 03382-9, THYR #### [facility] ([id number]) [address] [place] [address] 72296 ABSOLUTE NEUTROPHIL 4.2 X10E9/L Normal 1.5-6.6 [facility] Comment on above: Performed By: #### C KEVIN, CMP, , THYR #### [facility] ([id number]) [address] [place] [address] 10347 Basophils/100 WBC (Bld) 0.2 % Normal [facility] Comment on above: Performed By: #### C KEVIN, CMP, , THYR #### [facility] ([id number]) [address] [place] [address] 37853 Eosinophils (Bld) [#/Vol] 0.0 10*3/uL Normal 0.0-0.4 [facility] Comment on above: Performed By: #### C KEVIN CMP, , THYR #### [facility] ([id number]) [address] [place] [address] 70652 Eosinophils/100 WBC (Bld) 0.2 % Normal [facility] Comment on above: Performed By: #### C KEVIN CMP, , THYR #### [facility] ([id number]) [address] [place] [address] 61839 Erythrocyte distribution width (RBC) [Ratio] 13.1 % Normal 11.5-15.0 [facility] Comment on above: Performed By: #### C KEVIN CMP, , THYR #### [facility] ([id number]) [address] [place] [address] 03349 Hematocrit (Bld) [Volume fraction] 37.4 % Normal 35-47 [facility] Comment on above: Performed By: #### Deanna BCA, CMP, , THYR #### [facility] ([id number]) [address] [place] [address] 00218 Hemoglobin (Bld) [Mass/Vol] 12.7 g/dL Normal 11.7-15.5 [facility] Comment on above: Performed By: #### C REDD BROWN, , THYR #### [facility] ([id number]) [address] [place] [address] 95633 Lymphocytes (Bld) [#/Vol] 0.9 10*3/uL Low 1.0-3.5 [facility] Comment on above: Performed By: #### C REDD BROWN, , THYR #### [facility] ([id number]) [address] [place] [address] 88295 Lymphocytes/100 WBC (Bld) 13.6 % Normal [facility] Comment on above: Performed By: #### C REDD BROWN, , THYR #### [facility] ([id number]) [address] [place] [address] 25229 MCH (RBC) [Entitic mass] 31.2 pg Normal 27-34 [facility] Comment on above: Performed By: #### Deanna BROWN CMP, , THYR #### [facility] ([id number]) [address] [place] [address] 17119 MCHC (RBC) [Mass/Vol] 33.9 g/dL Normal 32-36 [facility] Comment on above: Performed By: #### C REDD BROWN, , THYR #### [facility] ([id number]) [address] [place] [address] 88903 MCV (RBC) [Entitic vol] 92 fL Normal 80-100 [facility] Comment on above: Performed By: #### Deanna BROWN CMP, , THYR #### [facility] ([id number]) [address] [place] [address] 87648 Monocytes (Bld) [#/Vol] 1.2 10*3/uL High 0-0.9 [facility] Comment on above: Performed By: #### Deanna BROWN CMP, , THYR #### [facility] ([id number]) [address] [place] [address] 46381 Monocytes/100 WBC (Bld) 19.3 % Normal [facility] Comment on above: Performed By: #### C BCA, CMP, , THYR #### [facility] ([id number]) [address] [place] [address] 41253 Neutrophils/100 WBC (Bld) 66.7 % Normal [facility] Comment on above: Performed By: #### C BCA, CMP, , THYR #### [facility] ([id number]) [address] [place] [address] 84219 Platelet mean volume (Bld) [Entitic vol] 8.3 fL Normal 7-12 [facility] Comment on above: Performed By: #### C BCA, CMP, , THYR #### [facility] ([id number]) [address] [place] [address] 74139 Platelets (Bld) [#/Vol] 174 10*3/uL Normal 150-450 [facility] Comment on above: Performed By: #### C BCA, CMP, , THYR #### [facility] ([id number]) [address] [place] [address] 78222 RBC COUNT 4.06 X10E12/L Normal 3.80-5.20 [facility] Comment on above: Performed By: #### C BCA, CMP, , THYR #### [facility] ([id number]) [address] [place] [address] 62813 WBC (Bld) [#/Vol] 6.3 10*3/uL Normal 4.0-11.0 [facility] Comment on above: Performed By: #### C BCA, CMP, , THYR #### [facility] ([id number]) [address] [place] [address] [place] [address] COMPREHENSIVE METABOLIC PANE Cruzito 01-11-2024 Albumin [Mass/Vol] 3.6 g/dL Normal 3.2-5.3 [facility] Comment on above: Performed By: #### C BCA, CMP, , THYR #### [facility] ([id number]) [address] [place] [address] [place] [address] ALP [Catalytic activity/Vol] 47 U/L Normal 39-130 [facility] Comment on above: Performed By: #### C BCA, CMP, , THYR #### [facility] ([id number]) [address] [place] [address] 17528 ALT [Catalytic activity/Vol] 27 U/L Normal 0-31 [facility] Comment on above: Performed By: #### C BCA, CMP, , THYR #### [facility] ([id number]) [address] [place] [address] 67840 Anion gap [Moles/Vol] 9 mmol/L Normal 5-15 [facility] Comment on above: Performed By: #### C BCA, CMP, , THYR #### [facility] ([id number]) [address] [place] [address] 42449 AST [Catalytic activity/Vol] 28 U/L Normal 0-41 [facility] Comment on above: Performed By: #### C BCA, CMP, , THYR #### [facility] ([id number]) [address] [place] [address] 82112 Bilirubin [Mass/Vol] 0.5 mg/dL Normal 0.3-1.2 [facility] Comment on above: Performed By: #### C BCA, CMP, , THYR #### [facility] ([id number]) [address] [place] [address] 80750 Calcium [Mass/Vol] 8.5 mg/dL Normal 8.5-10.5 [facility] Comment on above: Performed By: #### C REDD BROWN, , THYR #### [facility] ([id number]) [address] [place] [address] 84585 Chloride [Moles/Vol] 106 mmol/L Normal 98-109 [facility] Comment on above: Performed By: #### C REDD BROWN, , THYR #### [facility] ([id number]) [address] [place] [address] 87459 CO2 [Moles/Vol] 24 mmol/L Normal 22-32 [facility] Comment on above: Performed By: #### C REDD BROWN, , THYR #### [facility] ([id number]) [address] [place] [address] 31383 Creatinine [Mass/Vol] 0.74 mg/dL Normal 0.40-1.00 [facility] Comment on above: Result Comment: METH OD TRACEABLE TO IDMS STANDARD Performed By: #### C REDD BROWN, , THYR #### [facility] ([id number]) [address] [place] [address] 49442 GFR/1.73 sq M.predicted among non-blacks MDRD (S/P/Bld) [Vol rate/Area] 83 mL/min/{1.73_m2} Normal >59 [facility] Comment on above: Result Comment: Reported eGFR is based on the CKD-EPI 2020 equation that does not use a race coefficient. Performed By: #### C REDD BROWN, , THYR #### [facility] ([id number]) [address] [place] [address] 66098 Glucose [Mass/Vol] 91 mg/dL Normal 65-99 [facility] Comment on above: Performed By: #### C KEVIN, CMP, , THYR #### [facility] ([id number]) [address] [place] [address] 32767 Potassium [Moles/Vol] 3.7 mmol/L Normal 3.5-5.0 [facility] Comment on above: Performed By: #### C BCA, CMP, , THYR #### [facility] ([id number]) [address] [place] [address] 05157 Protein [Mass/Vol] 6.5 g/dL Normal 6.0-8.0 [facility] Comment on above: Performed By: #### C KEVIN, CMP, , THYR #### [facility] ([id number]) [address] [place] [address] 17445 Sodium [Moles/Vol] 139 mmol/L Normal 134-146 [facility] Comment on above: Performed By: #### C KEVIN, CMP, , THYR #### [facility] ([id number]) [address] [place] [address] 83114 Urea nitrogen [Mass/Vol] 15 mg/dL Normal 5-27 [facility] Comment on above: Performed By: #### C BCA, CMP, , THYR #### [facility] ([id number]) [address] [place] [address] 81331 MAGNESIUMon 01-11-2024 Magnesium [Mass/Vol] 2.6 mg/dL Normal 1.8-2.6 [facility] Comment on above: Performed By: #### 1 9123-9 #### [facility] ([id number]) [address] [place] [address] 37989 Magnesium [Mass/Vol] 1.8 mg/dL Normal 1.8-2.6 [facility] Comment on above: Performed By: #### C BCA, CMP, , THYR #### [facility] ([id number]) [address] [place] [address] 27761 THYROID PROFILEon 01-11-2024 Free T4 [Mass/Vol] 0.81 ng/dL Normal 0.61-1.60 [facility] Comment on above: Performed By: #### C BCA, CMP, , THYR #### [facility] ([id number]) [address] [place] [address] 38061 TSH 0.64 uIU/mL Normal 0.49-4.67 [facility] Comment on above: Performed By: #### C BCA, CMP, , THYR #### [facility] ([id number]) [address] [place] [address] 33638 BASIC METABOLIC PANLon 01-09 Anion gap [Moles/Vol] 7 mmol/L Normal 5-15 [facility] Comment on above: Performed By: #### B MP, LIVR, CBCA #### [facility] ([id number]) [address] [place] [address] 48029 Calcium [Mass/Vol] 8.3 mg/dL Low 8.5-10.5 [facility] Comment on above: Performed By: #### B MP, LIVR, CBCA #### [facility] ([id number]) [address] [place] [address] [place] [address] Chloride [Moles/Vol] 106 mmol/L Normal 98-109 [facility] Comment on above: Performed By: #### B MP, LIVR, CBCA #### [facility] ([id number]) [address] [place] [address] 91206 CO2 [Moles/Vol] 22 mmol/L Normal 22-32 [facility] Comment on above: Performed By: #### B MP, LIVR, CBCA #### [facility] ([id number]) [address] [place] [address] 69439 Creatinine [Mass/Vol] 0.90 mg/dL Normal 0.40-1.00 [facility] Comment on above: Result Comment: METH OD TRACEABLE TO IDMS STANDARD Performed By: #### B ANJUM LIVNaima CBCA #### [facility] ([id number]) [address] [place] [address] 84427 GFR/1.73 sq M.predicted among non-blacks MDRD (S/P/Bld) [Vol rate/Area] 65 mL/min/{1.73_m2} Normal >59 [facility] Comment on above: Result Comment: Reported eGFR is based on the CKD-EPI 2020 equation that does not use a race coefficient. Performed By: #### B ANJUM LIVR, CBCA #### [facility] ([id number]) [address] [place] [address] 22354 Glucose [Mass/Vol] 100 mg/dL High 65-99 [facility] Comment on above: Performed By: #### B ANJUM LIVNaima CBCA #### [facility] ([id number]) [address] [place] [address] 27738 Potassium [Moles/Vol] 4.9 mmol/L Normal 3.5-5.0 [facility] Comment on above: Result Comment: SPEC IMEN HEMOLYZED, RESULTS INCREASED Performed By: #### B ANJUM LIVR, CBCA #### [facility] ([id number]) [address] [place] [address] [id number] Sodium [Moles/Vol] 135 mmol/L Normal 134-146 [facility] Comment on above: Performed By: #### B ANJUM LIVR, CBCA #### [facility] ([id number]) [address] [place] [address] [id number] Urea nitrogen [Mass/Vol] 19 mg/dL Normal 5-27 [facility] Comment on above: Performed By: #### B MP, LIVR, CBCA #### [facility] ([id number]) [address] [place] [address] [id number] CBC AND AUTO DIFFon 01-10-20 24 ABSOLUTE BASOPHIL 0.0 X10E9/L Normal 0.0-0.2 [facility] Comment on above: Performed By: #### B MP, LIVR, CBCA #### [facility] ([id number]) [address] [place] [address] [id number] ABSOLUTE NEUTROPHIL 5.2 X10E9/L Normal 1.5-6.6 [facility] [place] Comment on above: Performed By: #### B MP, LIVR, CBCA #### [facility] ([id number]) [address] [place] [address] [id number] Basophils/100 WBC (Bld) 0.2 % Normal [facility] Comment on above: Performed By: #### B MP, LIVR, CBCA #### [facility] ([id number]) [address] [place] [address] [id number] Eosinophils (Bld) [#/Vol] 0.0 10*3/uL Normal 0.0-0.4 [facility] Comment on above: Performed By: #### B MP, LIVR, CBCA #### [facility] ([id number]) [address] [place] [address]9312 Eosinophils/100 WBC (Bld) 0.2 % Normal [facility] Comment on above: Performed By: #### B MP, LIVR, CBCA #### [facility] ([id number]) [address] [place] [address] [place] [address] Erythrocyte distribution width (RBC) [Ratio] 13.2 % Normal 11.5-15.0 [facility] Comment on above: Performed By: #### B MP, LIVR, CBCA #### [facility] ([id number]) [address] [place] [address] 95309 Hematocrit (Bld) [Volume fraction] 36.7 % Normal 35-47 [facility] Comment on above: Performed By: #### B MP, LIVR, CBCA #### [facility] ([id number]) [address] [place] [address] 79665 Hemoglobin (Bld) [Mass/Vol] 12.5 g/dL Normal 11.7-15.5 [facility] Comment on above: Performed By: #### B MP, LIVR, CBCA #### [facility] ([id number]) [address] [place] [address] 84187 Lymphocytes (Bld) [#/Vol] 0.7 10*3/uL Low 1.0-3.5 [facility] Comment on above: Performed By: #### B MP, LIVR, CBCA #### [facility] ([id number]) [address] [place] [address] 65839 Lymphocytes/100 WBC (Bld) 9.9 % Normal [facility] Comment on above: Performed By: #### B MP, LIVR, CBCA #### [facility] ([id number]) [address] [place] [address] 17153 MCH (RBC) [Entitic mass] 31.4 pg Normal 27-34 [facility] Comment on above: Performed By: #### B MP, LIVR, CBCA #### [facility] ([id number]) [address] [place] [address] 42159 MCHC (RBC) [Mass/Vol] 34.0 g/dL Normal 32-36 [facility] Comment on above: Performed By: #### B MP, LIVR, CBCA #### [facility] ([id number]) [address] [place] [address] 86820 MCV (RBC) [Entitic vol] 92 fL Normal 80-100 [facility] Comment on above: Performed By: #### B MP, LIVR, CBCA #### [facility] ([id number]) [address] [place] [address] 79264 Monocytes (Bld) [#/Vol] 1.0 10*3/uL High 0-0.9 [facility] Comment on above: Performed By: #### B MP, LIVR, CBCA #### [facility] ([id number]) [address] [place] [address] 65533 Monocytes/100 WBC (Bld) 14.7 % Normal [facility] Comment on above: Performed By: #### B MP, LIVR, CBCA #### [facility] ([id number]) [address] [place] [address] 63162 Neutrophils/100 WBC (Bld) 75.0 % Normal [facility] Comment on above: Performed By: #### B MP, LIVR, CBCA #### [facility] ([id number]) [address] [place] [address] 44165 Platelet mean volume (Bld) [Entitic vol] 8.1 fL Normal 7-12 [facility] Comment on above: Performed By: #### B MP, LIVR, CBCA #### [facility] ([id number]) [address] [place] [address] 92811 Platelets (Bld) [#/Vol] 173 10*3/uL Normal 150-450 [facility] Comment on above: Performed By: #### B MP, LIVR, CBCA #### [facility] ([id number]) [address] [place] [address] 44334 RBC COUNT 3.97 X10E12/L Normal 3.80-5.20 [facility] Comment on above: Performed By: #### B MP, LIVR, CBCA #### [facility] ([id number]) [address] [place] [address] 21805 WBC (Bld) [#/Vol] 6.9 10*3/uL Normal 4.0-11.0 [facility] Comment on above: Performed By: #### B MP, LIVR, CBCA #### [facility] ([id number]) [address] [place] [address] 37167 LIVER PANELon 01-10-2024 Albumin [Mass/Vol] 3.9 g/dL Normal 3.2-5.3 [facility] Comment on above: Performed By: #### B MP, LIVR, CBCA #### [facility] ([id number]) [address] [place] [address] 22774 ALP [Catalytic activity/Vol] 47 U/L Normal 39-130 [facility] Comment on above: Performed By: #### B MP, LIVR, CBCA #### [facility] ([id number]) [address] [place] [address] 65559 ALT [Catalytic activity/Vol] 23 U/L Normal 0-31 [facility] Comment on above: Result Comment: SPEC IMEN HEMOLYZED, RESULTS INCREASED Performed By: #### B MP, LIVR, CBCA #### [facility] ([id number]) [address] [place] [address] 46611 AST [Catalytic activity/Vol] 44 U/L High 0-41 [facility] Comment on above: Result Comment: SPEC IMEN HEMOLYZED, RESULTS INCREASED Performed By: #### B MP, LIVR, CBCA #### [facility] ([id number]) [address] [place] [address] 52322 Bilirubin [Mass/Vol] 1.3 mg/dL High 0.3-1.2 [facility] Comment on above: Result Comment: RESU LTS QUESTIONABLE DUE TO HEMOLYSIS Performed By: #### B MP, LIVR, CBCA #### [facility] ([id number]) [address] [place] [address] 56627 Bilirubin.direct [Mass/Vol] 0.4 mg/dL Normal 0.0-0.4 [facility] Comment on above: Performed By: #### B MP, LIVR, CBCA #### [facility] ([id number]) [address] [place] [address] Protein [Mass/Vol] 7.0 g/dL Normal 6.0-8.0 [facility] Comment on above: Result Comment: SPEC IMEN HEMOLYZED, RESULTS INCREASED Performed By: #### B MP, LIVR, CBCA #### [facility] ([id number]) [address] [place] [address] Laboratory - Microbiology an d Antimicrobial susceptibilityon 01-10-2024 SARS-CoV-2 (COVID-19) RNA NATIVIDAD+probe Ql (Unsp spec) Positive [facility] No Panel Informationon 01-09 FLU A Negative [facility] FLU B Negative [facility] Interpretation and review of laboratory results Abnormal [facility] XR CHEST 1 VWon 01-10-2024 [...] Lockett MD on 01/10/2024 8:08 PM Normal [facility] Urinalysis macro (dipstick) panel (U)on 01-07-2024 Bilirubin, UA Negative Negative - 4(70) +++ mg/dL [facility] Blood, UA Negative Negative - 50 Dallin/mcL [facility] Clarity, UA Clear [facility] Color, UA Light Yellow [facility] are Glucose, UA Negative Negative - 1999(110) ++++ mg/dL [facility] Interpretation and review of laboratory results Normal [facility] Ketones, UA Negative Negative - 160(16) ++++ mg/dL [facility] Leukocytes, UA Negative Negative - 500+++ José/mcL [facility] Nitrite, UA Negative Negative - Positive [facility] pH, UA 6.0 5 - 9 [facility] [facility] Protein, UA Negative Negative - 1999(20) ++++ mg/dL [facility] Spec Grav, UA 1.010 1 - 1.03 [facility] Urobilinogen, UA 0.2 0.2 - 12 mg/dL [facility] X[facility] Lumbar spine 4 [facility] Result: June 05, 2023 x-rays AP lateral and lateral flexion-extension views of the lumbar spine demonstrate severe scoliosis apex to the right at the thoracolumbar junction of nearly 90 degrees curvature in the coronal plane. There are no definitive fractures identified. Impression: Severe scoliosis Corwin Lui D.O. [facility] XR Lumbar spine 4 ViewsOrder ed By: Andrea Lui on 06-06-2023 [facility] [employer] Work Phone: XR Lumbar spine 4 [facility]iology Study observation (narrative) [facility] SCREENING MAMMOGRAM W/JORDAN, BILATERAL*on 04-10-2021 SCREENING MAMMOGRAM [...] VERY IMPORTANT TO YOUR HEALTH. THE CURRENT [employer] GUIDELINES RECOMMENDS ANNUAL MAMMOGRAPHY BEGINNING AT AGE 40 THIS FACILITY USES A REMINDER SYSTEM TO ENSURE ALL PATIENTS RECEIVE REMINDER NOTIFICATIONS AT THE APPROPRIATE TIME BASED ON THE RECOMMENDATIONS OF THIS EXAM. Report reported and signed by Filiberto Love on 04/10/2021 1211 Normal [facility] Business Trainer Vital Signs Date Time Vital Sign Value Performing Clinician Juanjosei michael 11-17-2024 10:17-0400 Body height 153.7 cm Lisandra Jimenez MD Work Phone: [facility] 11-17-2024 10:17-0400 Body mass index (BMI) [Ratio] 20.71 kg/m2 Lisandra Jiemnez MD Work Phone: [facility] 11-17-2024 10:17-0400 Body weight 48.9 kg Lisandra Jmienez MD Work Phone: [facility] 11-17-2024 10:17-0400 Diastolic blood pressure 68 mm[Hg] Lisandra Jimenez MD Work Phone: [facility] 11-17-2024 10:17-0400 Heart rate 50 /min Lisandra Jimenez MD Work Phone: [facility] 11-17-2024 10:17-0400 Respiratory rate 18 /min Lisandra Jimenez MD Work Phone: [facility] 11-17-2024 10:17-0400 SaO2% (BldA) [Mass fraction] 97 % Lisandra Jimenez MD Work Phone: [facility] 11-17-2024 10:17-0400 Systolic blood pressure 122 mm[Hg] Lisandra Jimenez MD Work Phone: [facility] 10-16-2024 14:10-0400 Body height 153.7 cm Mena Morse TEACHERS AIDE Work Phone: [facility] 10-16-2024 14:10-0400 Body mass index (BMI) [Ratio] 20.71 kg/m2 Mena Morse TEACHERS AIDE Work Phone: [facility] 10-16-2024 14:10-0400 Body temperature 99.19 [degF] Mena Morse TEACHERS AIDE Work Phone: [facility] 10-16-2024 14:10-0400 Body weight 48.9 kg Mena Morse TEACHERS AIDE Work Phone: [facility] 10-16-2024 14:10-0400 Diastolic blood pressure 84 mm[Hg] Mena Majors TEACHERS AIDE Work Phone: [facility] 10-16-2024 14:10-0400 Heart rate 96 /min Mena Majors TEACHERS AIDE Work Phone: [facility] 10-16-2024 14:10-0400 SaO2% (BldA) [Mass fraction] 97 % Mena Majors TEACHERS AIDE Work Phone: [facility] 10-16-2024 14:10-0400 Systolic blood pressure 118 mm[Hg] Mena Majors TEACHERS AIDE Work Phone: [facility] 10-06-2024 16:05-0400 Body temperature 97.59 [degF] Kinjal Marcospatrick TEACHERS AIDE Work Phone: [facility] 10-06-2024 16:05-0400 Diastolic blood pressure 82 mm[Hg] Kinjal Urbano TEACHERS AIDE Work Phone: [facility] 10-06-2024 16:05-0400 Systolic blood pressure 126 mm[Hg] Kinjal Urbano TEACHERS AIDE Work Phone: [facility] 05-11-2024 15:02-0500 Body height 153.7 cm Lisandra Jimenez MD Work Phone: [facility] 05-11-2024 15:02-0500 Body mass index (BMI) [Ratio] 21.36 kg/m2 Lisandra Jimenez MD Work Phone: [facility] 05-11-2024 15:02-0500 Body weight 50.44 kg Lisandra Jimenez MD Work Phone: [facility] 05-11-2024 15:02-0500 Diastolic blood pressure 64 mm[Hg] Lisandra Jimenez MD Work Phone: [facility] 05-11-2024 15:02-0500 Heart rate 65 /min Lisandra Jimenez MD Work Phone: [facility] 05-11-2024 15:02-0500 Respiratory rate 18 /min Lisandra Jimenez MD Work Phone: [facility] 05-11-2024 15:02-0500 SaO2% (BldA) [Mass fraction] 99 % Lisandra Jimenez MD Work Phone: [facility] 05-11-2024 15:02-0500 Systolic blood pressure 112 mm[Hg] Lisandra Jimenez MD Work Phone: [facility] 02-03-2024 09:06-0400 Body height 153.7 cm Lisandra Jimenez MD Work Phone: [facility] 02-03-2024 09:06-0400 Body mass index (BMI) [Ratio] 21.32 kg/m2 Lisandra Jimenez MD Work Phone: [facility] 02-03-2024 09:06-0400 Body weight 50.35 kg Lisandra Jimenez MD Work Phone: [facility] 02-03-2024 09:06-0400 Heart rate 83 /min Lisandra Jimenez MD Work Phone: [facility] 02-03-2024 09:06-0400 SaO2% (BldA) [Mass fraction] 94 % Lisandra Jimenez MD Work Phone: [facility] 01-10-2024 16:07-0400 Body height 154.9 cm Diana Gomez MD Work Phone: [facility] 01-10-2024 16:07-0400 Body temperature 98.8 [degF] Diana Gomez MD Work Phone: [facility] 01-10-2024 16:07-0400 Diastolic blood pressure 78 mm[Hg] Diana Gomez MD Work Phone: [facility] 01-10-2024 16:07-0400 Heart rate 122 /min Diana Gomez MD Work Phone: [facility] 01-10-2024 16:07-0400 SaO2% (BldA) [Mass fraction] 93 % Diana Gomez MD Work Phone: [facility] 01-10-2024 16:07-0400 Systolic blood pressure 122 mm[Hg] Diana Gomez MD Work Phone: [facility] 01-07-2024 13:02-0400 Body height 154.9 cm Lisandra Jimenez MD Work Phone: [facility] 01-07-2024 13:02-0400 Body mass index (BMI) [Ratio] 21.54 kg/m2 Lisandra Jimenez MD Work Phone: [facility] 01-07-2024 13:02-0400 Body weight 51.71 kg Lisandra Jimenez MD Work Phone: [facility] 01-07-2024 13:02-0400 Diastolic blood pressure 78 mm[Hg] Lisandra Jimenez MD Work Phone: [facility] 01-07-2024 13:02-0400 Heart rate 65 /min Lisandra Jimenez MD Work Phone: [facility] 01-07-2024 13:02-0400 Respiratory rate 18 /min Lisandra Jimenez MD Work Phone: [facility] 01-07-2024 13:02-0400 SaO2% (BldA) [Mass fraction] 97 % Lisandra Jimenez MD Work Phone: [facility] 01-07-2024 13:02-0400 Systolic blood pressure 122 mm[Hg] Lisandra Jimenez MD Work Phone: [facility] 06-10-2023 10:05-0500 Body height 154.9 cm Lisandra Jimenez MD Work Phone: [facility] 06-10-2023 10:05-0500 Body mass index (BMI) [Ratio] 20.6 kg/m2 Lisandra Jimenez MD Work Phone: [facility] 06-10-2023 10:05-0500 Body weight 49.44 kg Lisandra Jimenez MD Work Phone: [facility] 06-10-2023 10:05-0500 Diastolic blood pressure 68 mm[Hg] Lisandra Jimenez MD Work Phone: [facility] 06-10-2023 10:05-0500 Heart rate 76 /min Lisandra Jimenez MD Work Phone: [facility] 06-10-2023 10:05-0500 Respiratory rate 16 /min Lisandra Jimenez MD Work Phone: [facility] 06-10-2023 10:05-0500 Systolic blood pressure 130 mm[Hg] Lisandra Jimenez MD Work Phone: [facility] Encounters Encounter Date Encounter Type Care Provider Facility Start: 01-04-2025 End: 01-04-2025 ambulatory Mere Woodard MD Facility:[facility] Start: 11-17-2024 End: 11-17-2024 Bamboo flowsheet Lisandra [...] End: 10-16-2024 Patient encounter status Mena Morse TEACHERS AIDE Work Phone: [facility] Start: 10-16-2024 End: 10-16-2024 Bamboo flowsheet Mena Morse TEACHERS AIDE Work Phone: [facility] Start: 10-16-2024 End: 10-16-2024 Bamboo flowsheet Mena Morse TEACHERS AIDE Work Phone: [facility] Start: 10-16-2024 End: 10-16-2024 ambulatory MENA MORSE Not Available Start: 10-08-2024 End: 10-08-2024 Follow-up encounter Kinjal Urbano TEACHERS AIDE Work Phone: [facility] Start: 10-06-2024 End: 10-06-2024 ambulatory KINJAL URBANO Not Available Start: 10-06-2024 End: 10-06-2024 Office outpatient visit 25 minutes Kinjal Urbano TEACHERS AIDE Work Phone: [facility] Comment on [...] 03-30-2024 End: 03-30-2024 ambulatory Mere Woodard MD Facility:[facility] Start: 03-23-2024 End: 03-23-2024 ambulatory Mere Woodard MD Facility:[facility] Start: 03-03-2024 End: 03-03-2024 Refill Lisandra Jimenez MD Work Phone: [facility] Comment on above: Gastroesophageal ref lux disease without esophagitis; Mixed stress and urge urinary incontinence; Tachycardia; Age-related osteoporosis without current pathological fracture ([facility]) Start: 02-03-2024 End: 02-03-2024 Bamboo [...] 01-13-2024 Emergency department patient visit SERGIO JARVIS [facility] Start: 01-10-2024 End: 01-12-2024 ambulatory LISANDRA JIMENEZ [facility] Start: 01-10-2024 End: 01-10-2024 ambulatory DIANA [...] Start: 08-02-2023 Telephone encounter Maya Villalobos RN [facility] Comment on above: Records, transfer to [facility] Start: 06-11-2023 Refill Lisandra Price Work Phone: [facility] Start: 06-10-2023 Bamboo flowsheet Lisandra Jimenez MD Work Phone: [facility] Start: 06-10-2023 Bamboo flowsheet Lisandra Jimenez MD Work Phone: [facility] Start: 06-10-2023 End: 06-10-2023 Patient encounter procedure Lisandra Jimenez MD Work Phone: [facility] Comment on above: Routine general medi vicente examination at a health care facility (Primary Dx); Gastroesophageal reflux disease without esophagitis; Arthritis, lumbar spine; Primary osteoarthritis of left hip; Postoperative anemia due to acute blood loss; Age-related osteoporosis without current pathological fracture ([facility]) Start: 06-10-2023 End: 06-10-2023 Patient encounter status Lisandra Jimenez MD Work Phone: [facility] Work Phone: Start: 06-06-2023 Refill Loli Yang Work Phone: [facility] Comment on above: Postnasal discharge Start: 06-05-2023 End: 06-05-2023 Office outpatient visit 15 minutes Linda Robins NP Work Phone: [facility] Comment on above: S/P total left [...] et rgnt non-auto w/o micrscp Kinjal Urbano TEACHERS AIDE Work Phone: Start: 01-10-2024 STATUS COVID-19/FLU Jayne Gomez MD Work Phone: Start: 01-07-2024 Urnls dip stick/tabl et rgnt non-auto w/o micrscp Lisandra Jimenez MD Work Phone: Start: 06-05-2023 Radex spine lumbosac ral minimum 4 views Linda Robins TEACHERS AIDE Work Phone: Plan of Treatment Date Care Activity Detail Author Start: 10-16-2025 Medicare Annual Wellness (AWV) Medicare Annual Wellness (AWV) [facility] Start: 02-17-2025 End: 02-17-2025 Patient encounter procedure 02/17/2025 9:40 AM EDT Office Visit [facility] [address] [place] [address] Lisandra Jimenez MD [address] [place], [place] [id number] [facility] Start: 12-28-2024 Influenza vaccination Influenza Vacc ine (#1) [facility] Start: 11-17-2024 End: 11-17-2025 Bacteria identified in Urine by Culture Urine culture (clean catch) Microbiology Routine Dysuria Expected: 11/17/2024 (Approximate), Expires: 11/17/2025 [facility] Work Phone: Comment on above: Expected: 11/17/2024 (Approximate), Expires: 11/17/2025 Start: 11-17-2024 End: 11-17-2025 Urinalysis complete panel - Urine Urinalysis with reflex microscopic (clean catch) Lab Routine Dysuria Expected: 11/17/2024 (Approximate), Expires: 11/17/2025 [facility] Comment on above: Expected: 11/17/2024 (Approximate), Expires: 11/17/2025 Start: 11-06-2024 End: 11-06-2024 Clinical Support 11/06/2024 4:00 PM EDT Clinical Support [facility] [address] [place] [address] Dysuria (Primary Dx) [facility] Comment on above: Dysuria (Primary Dx) Start: 10-16-2024 End: 10-16-2024 Patient encounter procedure 10/16/2024 2:30 PM EDT Office Visit [facility] [address] [place] [address] Mena Morse NP [address] [place] [address] Arrived [facility] Comment on above: Arrived Start: 10-16-2024 End: 10-16-2025 25-hydroxyvitamin D3 [Mass/volume] in Serum or Plasma Vitamin D 25 hydroxy Lab Routine Age-related osteoporosis without current pathological fracture Expected: 10/16/2024 (Approximate), Expires: 10/16/2025 [facility] Comment on above: Expected: 10/16/2024 (Approximate), Expires: 10/16/2025 Start: 10-16-2024 End: 10-16-2025 CBC W Auto Differential panel - Blood CBC and differential Lab Routine Routine general medical examination at a health care facility Gastroesophageal reflux disease without esophagitis Iron deficiency anemia, unspecified iron deficiency anemia type Expected: 10/16/2024 (Approximate), Expires: 10/16/2025 [facility] Work Phone: Comment on above: Expected: 10/16/2024 (Approximate), Expires: 10/16/2025 Start: 10-16-2024 End: 10-16-2025 Comprehensive metabolic 2000 panel - Serum or Plasma Comprehensive metabolic panel Lab Routine Routine general medical examination at a health care facility Gastroesophageal reflux disease without esophagitis Expected: 10/16/2024 (Approximate), Expires: 10/16/2025 [facility] Comment on above: Expected: 10/16/2024 (Approximate), Expires: 10/16/2025 Start: 06-10-2024 Medicare Annual Wellness (AWV) Medicare Annual Wellness (AWV) [facility] Start: 05-15-2024 End: 05-15-2024 Professional / ancillary services management 05/15/2024 10:00 AM EST Ancillary Procedure [facility] [address] [place] [phone] [facility] Start: 05-11-2024 End: 05-11-2024 [...] Office Visit [facility] [address] [place] [id number] Lisandra Jimenez MD [address] [place] [address] Arrived [facility] Comment on above: Arrived Start: 01-02-2024 Adult BMI Screening Adult BMI Screen ing [facility] Start: 12-29-2023 Influenza vaccination [facility] Start: 12-29-2023 Tobacco Screening Tobacco Screening [facility] Start: 12-09-2023 End: 12-09-2023 Patient encounter procedure 12/09/2023 9:40 AM EDT Office Visit [facility] [address] [place] [phone] Lisandra Jimenez MD [address] [place] [address] [facility] Start: 08-01-2023 Medicare Annual Wellness (AWV) Medicare Annual Wellness (AWV) [facility] Start: 07-30-2023 End: 07-30-2023 Patient encounter procedure 07/30/2023 9:00 AM EDT Office Visit [facility] [address] [place] [address] Lisandra Jimenez MD [address] [place] [address] [facility] Start: 07-01-2023 End: 07-01-2023 Patient encounter procedure 07/01/2023 9:00 AM EST Office Visit [facility] [address] [place] [address] Linda Robins TEACHERS AIDE [address] [place] [address] [facility] Start: 06-26-2023 End: 06-26-2023 Patient encounter procedure 06/26/2023 10:00 AM EST Office Visit [facility] [address] [place] [address] Linda Robins TEACHERS AIDE [address] [place] [address] [facility] Start: 06-10-2023 End: 06-10-2023 Patient encounter procedure [facility] Comment on above: Arrived Start: 02-10-2023 DTaP,Tdap and Td Vaccines (3 - Td or Tdap) DTaP,Tdap and Td Vaccines (3 - Td or Tdap) [facility] Start: 12-28-2022 COVID-19 Vaccine ( season) COVID-19 Vaccine ( season) [facility] Start: 2010 Fall Risk Screening Fall Risk Screen ing [facility] Start: 1957 Depression Screening Depression Scre ening [facility] Start: 1945 Medicare Annual Wellness Visit Medicare Annual Wellness Visit [facility] Bacteria identified in Urine by Culture Urine culture Microbiology Routine Dysuria Ordered: 10/06/2024 [facility] Work Phone: Comment on above: Ordered: 10/06/2024 Immunizations Immunization Date Immunization Notes Care Provider Fa antonio 02-03-2024 influenza, high dose seasonal, preservative-free Lisandra Jimenez MD Work Phone: [facility] 02-03-2024 influenza virus vacc ine, unspecified formulation Lisandra Jimenez MD Work Phone: [facility] 04-08-2023 RSV, recombinant, protein subunit RSVpreF, adjuvant reconstitu, 120mcg/0.5mL, PF (Arexvy) Lisandra Jimenez MD Work Phone: [facility] 01-28-2023 Influenza, High-dose Seasonal, Quadrivalent, Preservative Free Loli Rivera TEACHERS AIDE Work Phone: [facility] Work Phone: 01-28-2023 influenza virus vacc ine, unspecified formulation Lisandra Jimenez MD Work Phone: [facility] 02-06-2022 Influenza, High-dose Seasonal, Quadrivalent, Preservative Free Loli Rivera TEACHERS AIDE Work Phone: [facility] 02-06-2022 Moderna Bivalent Price ster Vaccination Loli Rivera TEACHERS AIDE Work Phone: [facility] 02-06-2022 Moderna SARS-CoV-2 50mcg/0.5mL Booster Loli Rivera TEACHERS AIDE Work Phone: [facility] 02-06-2022 influenza virus vacc ine, unspecified formulation Maya Villalobos RN [facility] 01-26-2021 Influenza, High-dose Seasonal, Quadrivalent, Preservative Free Loli Rivera TEACHERS AIDE Work Phone: [facility] 01-27-2020 Influenza, High-dose Seasonal, Quadrivalent, Preservative Free Loli Rivera TEACHERS AIDE Work Phone: [facility] 03-12-2019 zoster vaccine recombinant Loli Rivera TEACHERS AIDE Work Phone: [facility] 01-26-2019 zoster vaccine, live Loli W olf TEACHERS AIDE Work Phone: [facility] 01-22-2019 influenza, high dose seasonal, preservative-free Loli Rivera TEACHERS AIDE Work Phone: [facility] 01-22-2019 Influenza, High-dose Seasonal, Quadrivalent, Preservative Free Loli Rivera TEACHERS AIDE Work Phone: [facility] 01-22-2019 zoster vaccine recombinant Loli Rivera TEACHERS AIDE Work Phone: [facility] 01-20-2018 influenza, high dose seasonal, preservative-free Loli Rivera TEACHERS AIDE Work Phone: [facility] 01-20-2018 influenza, injectabl e, quadrivalent, preservative free Loli Rivera TEACHERS AIDE Work Phone: [facility] 01-18-2017 influenza, high dose seasonal, preservative-free Loli Rivera TEACHERS AIDE Work Phone: [facility] 01-18-2017 Influenza, High-dose Seasonal, Quadrivalent, Preservative Free Loli Rivera TEACHERS AIDE Work Phone: [facility] 01-17-2016 influenza, high dose seasonal, preservative-free Loli Rivera TEACHERS AIDE Work Phone: [facility] 01-17-2016 pneumococcal conjuga te vaccine, 13 valent Lolibrady Rivera TEACHERS AIDE Work Phone: [facility] 01-12-2015 influenza, high dose seasonal, preservative-free Loli Rivera TEACHERS AIDE Work Phone: [facility] 01-11-2014 influenza, high dose seasonal, preservative-free Loli Rivera TEACHERS AIDE Work Phone: [facility] 02-10-2013 tetanus and diphther ia toxoids, adsorbed, preservative free, for adult use (5 Lf of tetanus toxoid and 2 Lf of diphtheria toxoid) Lolibrady Rivera TEACHERS AIDE Work Phone: [facility] 02-10-2013 tetanus toxoid, redu jessica diphtheria toxoid, and acellular pertussis vaccine, adsorbed Loli Rivera TEACHERS AIDE Work Phone: [facility] 02-06-2013 seasonal influenza, intradermal, preservative free Loli Rivera TEACHERS AIDE Work Phone: [facility] 12-23-2012 zoster vaccine, live Loli W olf TEACHERS AIDE Work Phone: [facility] 12-12-2012 pneumococcal polysaccharide vaccine, 23 valent Loli Rivera TEACHERS AIDE Work Phone: [facility] 02-06-2012 influenza, seasonal, injectable, preservative free Loli Rivera TEACHERS AIDE Work Phone: [facility] 04-17-2004 influenza, seasonal, injectable Loli Rivera TEACHERS AIDE Work Phone: [facility] 04-27-2003 influenza, seasonal, injectable Loli Rivera TEACHERS AIDE Work Phone: [facility] 04-27-2002 influenza, seasonal, injectable Loli Rivera TEACHERS AIDE Work Phone: [facility] 04-01-2001 influenza, seasonal, injectable Loli Rivera TEACHERS AIDE Work Phone: [facility] 03-08-1999 pneumococcal polysaccharide vaccine, 23 valent Loli Rivera TEACHERS AIDE Work Phone: [facility] Payers Date Payer Category Payer Private Health Insurance 2021 Medicaid [employer] MEDICARE A DVANTAGE [id number] 2021 Medicare [id number] 2021 Medicare [id number] 1945 Unknown [id number] 2.16.840.1.373955.3.579.2. 1286 1945 Unknown [id number] 2.16.840.1.350289.3.579.2. 1286 1945 Unknown [id number] 2.16.840.1.189675.3.579.2. 1258 1945 Unknown [id number] 2.16.840.1.625165.3.579.2. 125 1945 Unknown [id number] 2.16.840.1.600588.3.579.2. 1258 1945 Unknown [id number] 2.16.840.1.138620.3.579.2. 1258 1945 Unknown [id number] 2.16.840.1.449211.3.579.2. 1258 1945 Unknown [id number] 2.840.1.420062.3.579.2. 1258 1945 Unknown [id number] 2.16.840.1.234194.3.579.2. 1258 1945 Unknown [id number] 2.16.840.1.527276.3.579.2. 1258 1945 Unknown [id number] 2.840.1.428172.3.579.2. 1258 1945 Unknown [id number] 2.16840.1.635242.3.579.2. 1258 1945 Unknown [id number] 2.16.840.1.128119.3.579.2. 1258 1945 Unknown [id number] 2.16.840.1.778676.3.579.2. 1258 1945 Unknown [id number] 2.16.840.1.291124.3.579.2. 1258 1945 Unknown [id number] 2.16.840.1.044798.3.579.2. 1258 1945 Unknown [id number] 2.16.840.1.325460.3.579.2. 1259 1945 Unknown [id number] 2.16.840.1.580784.3.579.2. 1259 1945 Unknown [id number] 2.16.840.1.651898.3.579.2. 196 1945 Unknown [id number] 2.16.840.1.362897.3.579.2. 196 1945 Unknown [id number] 2.16.840.1.641959.3.579.2. 196 1945 Unknown [id number] 2.16.840.1.483954.3.579.2. 196 1945 Unknown [id number] 2.16.840.1.334378.3.579.2. 196 Social History Date Type Detail Facility Start: 05-24-2022 End: 10-10-2022 Tobacco smoking status [facility] Never smoked tobacco [facility] Start: 05-24-2022 [...] partner or ex-partner? No [facility] Attends Yazdanism Services Not on file [facility] Do you belong to any clubs or organizations such as zoroastrianism groups, unions, fraternal or athletic groups, or [...] 1945 Sex Assigned At Not on file [facility] Start: 07-11-2022 Gender identity Identifies as female gender (finding) [facility] Start: 12-28-2022 Alcohol intake Current non-drinker of alcohol (finding) [facility] Medical Equipment Procedure Code Equipment Code Equipment Origin al Text Equipment Identifier Dates Lens Iol Ultrase rt 11.5d - [id number] - [id number] Start: 04-03-2018 Lens Iol Ultrase rt 13.0d - [id number] - [id number] Start: 08-28-2018 Head Fem 32mm 0m m Vrsy Cocr Hip Rpl [id number] - [id number] - [id number], [id number] FDA Start: 12-26-2022 Screw Bn 15mm 6. [address]mm [address] Hip Actb Trlg Strl Rpl [id number] - [id number] - [id number] Start: 12-26-2022 Goals Date Patient Goal Desired Activity /State Personal health goal Comment on above: Formatting of this n ote might be different from the original. Evaluation of progress towards goal: Home with support from friend (staying with pt) and [facility] Functional Status Date Assessment Result Facility 10-16-2024 Patient Health [facility] ionnaire 2 item (PHQ-2) [Reported] [facility] Clinical Notes 06-05-2023 to 11-17-2024 Lisandra Jimenez [...] months from now. documented in this encounter [facility] 11-16-2024 Telephone encounter Note Vm was left: Al, my name is Teresa Hadley. I am calling for Marck Maria birthday [birth year]. She has been in to you a few times recently and she just finished her antibiotic a few days ago and she is still having some burning. Um, so I just wanted to relay that message to Dr Jimenez. Um, you can give her a call back [phone], thanks. [facility] 11-16-2024 Miscellaneous Notes Vm was left: Al, my name is Teresa Hadley. I am calling for Marck Maria birthday [birth year]. She has been in to you a few times recently and she just finished her antibiotic a few days ago and she is still having some burning. Um, so I just wanted to relay that message to Dr Jimenez. Um, you can give her a call back [phone], thanks. documented in this encounter [facility] 11-06-2024 Telephone encounter Note Al, I am calling for Tr Maria. She was just in had some problems with ta UTI They prescribed an antibiotic and she is still having trouble today So I think it is coming back. If you could call back to her house number [phone], we would appreciate it. Thank you. [facility] 11-06-2024 Miscellaneous Notes Hi, I am calling for Tr Maria. She was just in had some problems with ta UTI They prescribed an antibiotic and she is still having trouble today So I think it is coming back. If you could call back to her house number [phone], we would appreciate it. Thank you. documented in this encounter [facility] 10-16-2024 History of Present illness Narrative Images [...] her Fosamax medication. She is currently taking yaoa-dlm-ebiwllr iron supplements for iron deficiency anemia. 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 She is not seeing orthopedics [...] or more days a week?: Yes (does [employer] class) How confident are you that you [...] independence. Living will and durable power of energy attorney reviewed Routine general medical examination at [...] sooner if needed. documented in this encounter [facility] 10-08-2024 Telephone encounter Note Patient calling back- symptoms have improved and she is doing better. She started the antibiotic yesterday. [facility] 10-08-2024 Miscellaneous Notes Patient calling back- symptoms have improved and she is doing better. She started the antibiotic yesterday. Ask patient if her symptoms have improved documented in this encounter [facility] 10-08-2024 Progress note Formatting of t his note might be different from the original. Ask patient if her symptoms have improved [facility] 10-06-2024 History of Present illness Narrative Images [...] for 10 days. documented in this encounter [facility] 05-11-2024 History of Present illness Narrative Images [...] physical therapy. She used to participate in [employer] classes, which included weightlifting, but discontinued this [...] in weight-bearing exercises, such as resuming her [employer] classes, to stimulate bone health. A bone density test will be scheduled to monitor her condition. PROCEDURE The patient underwent hip replacement surgery approximately 2 years ago. documented in this encounter [facility] 05-05-2024 Telephone encounter Note Voicemail left at 3:55 pm. I left her a vm to schedule an appt. Al, this is Marck Maria for 45. I [...] why that is happening. So it is [phone] Neri Maria [id number]. Thank you very much. Peter lemus. [facility] 05-05-2024 Miscellaneous Notes Voicemail left at 3:55 [...] why that is happening. So it is [phone] eNri Maria [id number]. Thank you very much. Peter lemus. documented in this encounter [facility] 03-03-2024 Telephone encounter Note Approvals with refills [facility] 03-03-2024 Miscellaneous Notes Approvals with refills documented in this encounter [facility] 02-03-2024 History of Present illness Narrative Images [...] challenging. She also consumes iced coffee from [employer]. SUBJECTIVE: MEDICATIONS: Current Outpatient Medications Medication Instructions [...] good preventative measure. documented in this encounter [facility] 01-10-2024 History of Present illness Narrative Images [...] COVID-19 GERD (gastroesophageal reflux disease) Hypoglycemia Osteoporosis ([facility]) Rotator cuff Toe fracture R 5th toe [...] follow-ups on file. documented in this encounter [facility] 01-07-2024 History of Present illness Narrative Marck [...] Orders Flu vaccine, high dose seasonal, PF (HGA685) (Fluzone High Dose) Urinary incontinence, unspecified type Relevant Orders POCT Urinalysis dipstick D.c sugary ice coffees documented in this encounter [facility] 08-02-2023 Miscellaneous Notes Received a phone call from [facility] for patient records to be transferred. documented in this encounter [facility] 08-02-2023 Telephone encounter Note Received a phone call from [facility] for patient records to be transferred. [facility] 06-11-2023 Telephone encounter Note PT Calling to check status of this request, unsure as how to explain the denial of the refill. [facility] 06-11-2023 Miscellaneous Notes PT Calling to check status of this request, unsure as how to explain the denial of the refill. Medication refused due to failing protocol. Requested Prescriptions Pending Prescriptions Disp Refills methylPREDNISolone (Medrol Dospak) 4 MG tablets 21 tablet Sig: Follow schedule on package instructions There is no refill protocol information for this order documented in this encounter [facility] 06-11-2023 Telephone encounter Note Medication refused due to failing protocol. Requested Prescriptions Pending Prescriptions Disp Refills methylPREDNISolone (Medrol Dospak) 4 MG tablets 21 tablet Sig: Follow schedule on package instructions There is no refill protocol information for this order [facility] 06-10-2023 History of Present [...] in 6months documented in this encounter [facility] 06-05-2023 History of Present illness Narrative Subjective [...] anemia Age-related osteoporosis without current pathological fracture ([facility]) [facility] Diagnosis COVID-19- Primary Degeneration of intervertebral disc of lumbar region, unspecified whether pain present Encounter for immunization documented [facility]* Diagnosis Gastroesophageal reflux disease without esophagitis Esophageal reflux Mixed stress and urge urinary incontinence Mixed incontinence urge and stress (male)(female) Tachycardia Unspecified tachycardia Age-related osteoporosis without current pathological fracture ([facility]) [facility]* Diagnosis COVID-19- Primary Cough, unspecified type Nasal congestion Other diseases of nasal cavity and sinuses Dehydration Tachycardia Unspecified tachycardia [facility]* Diagnosis Chronic right-sided low back pain without sciatica- Primary Encounter for immunization Urinary incontinence, unspecified type documented in this encounter [facility]* Diagnosis Fall, initial encounter- Primary Osteopenia of multiple sites Leg weakness, bilateral Muscle weakness (generalized) documented in this encounter [facility] note* Diagnosis Dysuria- Primary Acute cystitis with hematuria documented in this encounter [facility] note* Diagnosis Medicare annual wellness visit, subsequent- Primary Routine general medical examination at a health care facility Age-related osteoporosis without current pathological fracture Gastroesophageal reflux disease without esophagitis Esophageal reflux Primary osteoarthritis of left hip Iron deficiency anemia, unspecified iron deficiency anemia type Neoplasm of unspecified behavior of bone, soft tissue, and skin documented in this encounter [facility] note* Diagnosis Dysuria- Primary Acute cystitis with hematuria- Primary documented in this encounter [facility]* Diagnosis Atrophic vaginitis- Primary Postmenopausal atrophic vaginitis Dysuria documented in this encounter [facility] HealthcareInstructionsNot on filedocumented [facility] Purpose Family History No Family History Records FoundNo Family History Records FoundNo Family History Records FoundNo Family History Records Found Advance Directives No Advanced Directives Records FoundDocuments on File Type Date Recorded Patient Nba Player Expl anation Living Will 01/17/2023 11:55 AM Durable Power of Construction Superintendent 01/17/2023 11:54 AM Latest Code Status on File Code Status Date Activated Date Inactivated Comments Full Code 12/28/2022 6:14 PM 01/01/2023 3:49 PM Code Status History Code Status Date Activated Date Inactivated Comments Full Code 12/26/2022 10:18 AM 12/27/2022 7:36 PM Additional Source Comments INFORMATION SOURCE (unrecogn ized section and content) DATE CREATED AUTHOR 04/10/2021 [facility] dical Specialist DATE CREATED AUTHOR AUTHOR'S ORGANIZ ATION 01/13/2024 [facility] DATE CREATED AUTHOR AUTHOR'S ORGANIZ ATION 11/18/2024 [facility] dical Specialists EPIC DATE CREATED AUTHOR AUTHOR'S ORGANIZ ATION 01/10/2025 [facility] Reason for Visit (unrecogniz ed section and content) Reason Comments Med Refill Reason Comments Medicare Annual Wellness Visit Subsequen t Reason Comments Follow-up Patient here for 6 m [facility] follow up. She was in the ER [...] [facility] 08/02/2023 Reason Comments UTI Reason Comments Medicare Annual Wellness Visit Subsequen t Dry skin Face, dry patches Reason Comments Urinary Problem Burning with urinati on, negative culture. 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 Relationship Specialty Start Date End Date Benji Cantrell MD [address] [facility] [address] [place] [address] PCP - [employer] 04/29/22 Lisandra Jimenez MD [address] [facility] [place] [address] PCP - General Family Medicine 09/10/22 Mechanical 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 Relationship Specialty Start Date End Date Benji Cantrell MD [address] [facility] [address] [place] [address] PCP - [employer] 04/29/22 Lisandra Jimenez MD [address] [place] [address] PCP - General Family Medicine 09/10/22 Mechanical 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 Relationship Specialty Start Date End Date Benji Cantrell MD [address] [facility] [address] [place] [address] PCP - [employer] 04/29/22 Lisandra Jimenez MD [address] [facility] [place] [address] PCP - General Family Medicine 09/10/22 Mechanical 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 Relationship Specialty Start Date End Date Benji Cantrell MD [address] [facility] [address] [place] [address] PCP - [employer] 04/29/21 Lisandra Jimenez MD [address] [place] [address] PCP - General Family Medicine 09/10/22 Mechanical 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 Relationship Specialty Start Date End Date Benji Cantrell MD [address] [facility] [address] [place] [address] PCP - [employer] 04/29/21 Lisandra Jimenez MD [address] [place] [address] PCP - General Family Medicine 09/10/22 Mechanical 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 Relationship Specialty Start Date End Date Benji Cantrell MD [address] [facility] [address] [place] [address] PCP - [employer] 04/29/21 Lisandra Jimenez MD [address] [place] [address] PCP - General Family Medicine 09/10/22 Mechanical 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 Relationship Specialty Start Date End Date Benji Cantrell MD [address] [facility] [address] [place] [address] PCP - [employer] 04/29/21 Lisnadra Jimenez MD [address] [place] [address] PCP - General Family Medicine 09/10/22 Mechanical 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 Relationship Specialty Start Date End Date Benji Cantrell MD [address] [facility] [address] [place] [address] PCP - [employer] 04/29/21 Lisandra Jimenez MD [address] [facility] [place] [address] PCP - General Family Medicine 09/10/22 Mechanical 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 Relationship Specialty Start Date End Date Benji Cantrell MD [address] [facility] [address] [place] [address] PCP - [employer] 04/29/21 Lisandra Jimenez MD [address] [facility] [place] [address] PCP - General Family Medicine 09/10/22 Mechanical 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 Relationship Specialty Start Date End Date Benji Cantrell MD [address] [facility] [place] [address] PCP - [employer] 04/29/21 Lisandra Jimenez MD [address] [facility] [place] [address] PCP - General Family Medicine 09/10/22 Mechanical 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 Relationship Specialty Start Date End Date Benji Cantrell MD [address] [facility] [place] [address] PCP - [employer] 04/29/21 Lisandra Jimenez MD [address] [facility] [place] [address] PCP - General Family Medicine 09/10/22 Mechanical 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 Relationship Specialty Start Date End Date Benji Cantrell MD [address] [facility] [place] [address] PCP - [employer] 04/29/21 Lisandra Jimenez MD [address] [facility] [place] [address] PCP - General Family Medicine 09/10/22 Mechanical 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 Relationship Specialty Start Date End Date Benji Cantrell MD [address] [place] [address] PCP - [employer] 04/29/21 Lisandra Jimenez MD [address] [place] [address] PCP - General Family Medicine 09/10/22 Mechanical 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 Relationship Specialty Start Date End Date Lisandra Jimenez MD [address] [place] [address] PCP - General Family Medicine 11/12/16 Mechanical 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 Relationship Specialty Start Date End Date Benji Cantrell MD [address] [place] [address] PCP - [employer] 04/29/21 Lisandra Jimenez MD [address] [place] [address] PCP - General Family Medicine 09/10/22 Mechanical 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 Relationship Specialty Start Date End Date Benji Cantrell MD [address] [place] [address] PCP - [employer] 04/29/21 Lisandra Jimenez MD [address] [place] [address] PCP - General Family Medicine 09/10/22 Mechanical 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 Relationship Specialty Start Date End Date Benji Cantrell MD [address] [place] [address] PCP - [employer] 04/29/21 Lisandra Jimenez MD [address] [place] [address] PCP - General Family Medicine 09/10/22 FOR [...] BE BASED ON THE PRIMARY CLINICAL RECORDS. [facility]. provides no warranty or guarantee of the accuracy or completeness of information in this document.
[2025-02-08 12:14] VITALS: BP 141/86; PULSE 74; TEMP 36; O2SAT 95
[2025-02-08 12:35] VITALS: BP 156/82; BP 170/81; PULSE 86; O2SAT 96
[2025-02-08] MEDS: BUPIVACAINE HCL 0.25% PF 25 MG/10 ML VIAL 2 ML INJ (12:36)
[2025-02-08] MEDS: LIDOCAINE HCL 2% 400 MG/20 ML MDV INJ (12:36)
[2025-02-08] MEDS: IOHEXOL 240 MG/ML - 10 ML VIAL INJ (12:36)
[2025-02-08] MEDS: METHYLPREDNISOLONE ACETATE 40 MG/ML VIAL INJ (12:36)
--- NOTE | 2025-02-08 12:36 | W.PM.PROCNOT ---
Date of procedure: 02/08/25 Pre-op diagnosis: Pain due to left sacroiliitis Post-op diagnosis: same as pre-op Procedure: Procedure: Left sacroiliac joint injection Medications: Bupivacaine 0.25% 4cc, depomedrol 40mg After informed consent was obtained, the patient was brought to the medical procedure unit and placed in the prone position, when a timeout was completed verifying correct patient, procedure, site, positioning, implant, and/or special equipment.? The skin overlying the area was prepped and draped in standard sterile fashion using alcohol.? A 25-gauge needle was inserted towards the left sacroiliac joint under direct fluoroscopic imaging.? Needle tip was advanced until the joint was encountered.? We instilled a total of 2 mL of solution.? Postoperatively needles were removed.? The patient tolerated the procedure well without complication.? The patient reported reduction in pain symptoms postoperatively. Anesthesia: Local Surgeon: Mere Woodard Pathology: none sent Condition: stable Disposition: no change
== END 2025-02-08 12:43 | disposition home or self-care (01) ==
PROVIDERS: PCP Family Medicine; Visit Provider Anesthesiology
DX: M46.1 Sacroiliitis, not elsewhere classified (principal)
CPT/HCPCS: 27096; J0665; J1010; Q9966

== ENCOUNTER 2025-02-17 12:36 | Outpatient (OUT) | payer MEDICARE, SELFPAY ==
--- OUTSIDE RECORDS SUMMARY | 2025-02-17 12:39 | XMS_ITS | Patient Health Record ---
Author Organization [facility] [place] Address [address] [place] [address] Care Team Providers Care Retail Attendant Name Role Phone Lisandra Jimenez MD Primary Care Provider Unavailabl e Allergies No Known Allergies Reason For Referral No Information Medications Medication SIG (Take, Route, Frequency, Duration) Notes Start Date End Date Status Famotidine 20 MG 1 tablet at bedtime as needed Orally Once a day; Duration: 30 day(s) ActiveFluticasone Propionate 50 MCG/ACT1 spray in each nostril Nasally Once a day; Duration: 30 day(s)ActiveTylenol with Codeine #3ActiveAzelastine HCl 0.15 % 2 sprays in each nostril Nasally Once a day; Duration: 30 day(s)Active Social History Tobacco Use: Social History Observation Description Date Details (start date - stop date) Never Smoker NA - NA Tobacco Use/Smoking Question Answer Notes Patient is a nonsmoker Plan Of Treatment No Information Insurance Providers Payer Name Payer Address Payer Phone Subscriber Number Group Number Insured Name Patient Relationship to Insured Coverage Start Date Coverage End Date [employer] MED[employer]ARE [address] [place] [address] [id number], MartoSelf - patient is the [id number] 2021 Medical (General) History Medical History History ICD Code cataracts osteoporosisSurgical History Surgery Date(Month/Year)
--- OUTSIDE RECORDS SUMMARY | 2025-02-17 12:39 | XMS_ITS | Clinical Summary ---
Author Organization [facility] Address [address], [address] [place] [address] Care Team Providers Care Airplane Tester Name Role Phone Lisandra Jimenez MD Primary Care Provider [phone] Social History Tobacco UseTypesPacks/DayYears UsedDateSmoking Tobacco: Never Assessed CommentsUnknownSex and Gender InformationValueDate RecordedSex Assigned at Not on fileLegal JgbJlyxnd60/10/2013 1:55 PM ESTGender IdentityNot on fileSexual OrientationNot on file Plan of Treatment Not on file Insurance * Guarantor: Marck Maria TypeRelation to PatientDate of BirthPhone Billing AddressPersonal/KufdbeLobp65/18/1946 [address] [place] [address] Care Teams Team MemberRelationshipSpecialtyStart DateEnd Date Lisandra Jimenez MD [address] [place] [address] PCP - [facility]10/15/22
--- OUTSIDE RECORDS SUMMARY | 2025-02-17 12:40 | XMS_ITS | Clinical Summary ---
Author Organization [facility] Address [address] [place] [address] Care Team Providers Care Sqe Name Role Phone Benji Cantrell MD Unavailable [phone] Lisandra Jimenez MD Primary Care Provider [phone] Allergies Active AllergyReactionsCriticalityNoted DateCommentsDiphenhydramineUnknown 10/10/2022Sulfa Tpkntpfkvrj76/14/2023 Other Reaction(s): Unknown Medications MedicationSigDispense QuantityRefillsLast FilledStart DateEnd DateStatus Acetaminophen (TYLENOL 8 HOUR ARTHRITIS PAIN PO) Tylenol Arthritis PainActive azelastine (Optivar) 0.05 % ophthalmic solution INSTILL 1 DROP INTO BOTH EYES TWICE A DAY Ophthalmic for 90 DaysActive ferrous sulfate 325 (65 Fe) MG EC tablet TAKE 1 TABLET (325 MG) BY MOUTH IN THE MORNING. TAKE WITH MEALS. DO NOT CRUSH, CHEW, OR SPLIT..04/25/2023ctive fluticasone (Flonase) 50 MCG/ACT nasal spray Indications:Postnasal dischargeUSE 2 SPRAYS IN EACH NOSTRIL ONCE A DAY 48 mL ctive docusate sodium (Colace) 100 MG capsule Take 100 mg by mouth in the morning and 100 mg before bedtime.Active benzonatate (Tessalon) 100 MG capsule Take 100 mg by mouth 3 (three) times a day as uzrtdb9901/11/2024ctive famotidine (Pepcid) 20 MG tablet Indications:Gastroesophageal reflux disease without esophagitisTake 1 tablet (20 mg) by mouth Daily 90 tablet ctive tolterodine LA (Detrol LA) 2 MG 24 hr capsule Indications:Mixed stress and urge urinary incontinenceTake 1 capsule (2 mg) by mouth Daily Do not crush, chew, or split. 90 capsule 5Active metoprolol tartrate (Lopressor) 25 MG tablet Indications:TachycardiaTake 1 tablet (25 mg) by mouth in the morning and 1 tablet (25 mg) before bedtime. 180 tablet /7Active alendronate (Fosamax) 70 MG tablet Indications:Age-related osteoporosis without current pathological fractureTake 1 tablet (70 mg) by mouth every 7 (seven) days Take in the morning with a full glass of water,on an empty stomach, and do not take anything else by mouth or lie down for the next 30 min. 12 tablet ctive celecoxib (CeleBREX) 200 MG capsule 08/19/2023ctive estradiol (Estrace) 0.1 MG/GM vaginal cream Indications:Atrophic vaginitisApply peasized amount to vagina nightly for 1 week then every Saturday/Saturday/Saturday. 42.5 g 50506Active Active Problems ProblemNoted DateDiagnosed DateCOVID-Low back pain without sciatica 08/23/2023ostoperative anemia due to acute blood loss12/30/2022Tachycardia 12/28/20226422Ncjpvndiasndi18/03/2023cquired hallux ivlyjq7210/10/2022cquired hammer toe of right foot10/10/2022ge-related osteoporosis without current pathological mglbirjl81/14/2023Osteoarthritis of left hip10/10/2022rthritis, lumbar spine 10/10/2022egenerative scoliosis in adult pyokmfn6210/10/2022egenerative disc disease, tylhta2410/10/2022ERD (gastroesophageal reflux disease)10/10/2022 Lumbosacral spondylosis without mvumkfgshu61/14/2023isorder of ypmytg1004/05/2022 Overview (11/29/2022): Added automatically from request for surgery [id number] Upipfeswj58/27/2022Other idiopathic scoliosis, thoracolumbar vuvdsw7202/22/2022 Thoracic spondylosis without dmkqmevlkz51/27/2022ge related osteoporosis 02/22/2022egeneration of lumbar intervertebral disc02/22/2022Gastroesophageal reflux tutaseq9602/22/2022rthritis of left hip02/22/2022 Encounters DateTypeDepartmentCare ZnqkPfqwntbyzpc64/24/2025Results Follow-Up [facility] [address] [place] [address] Lisandra Jimenez MD POCT Urinalysis dipstick, Urine culture (clean catch), Urinalysis with reflex microscopic (clean catch), NOTE11/17/2024 10:00 AM EDTOffice Visit [facility] [address] [place] [address] Lisandra Jimenez MD Atrophic vaginitis (Primary Dx); Dqnliac6111/17/2024amboo flowsheet [facility] [address] [place] [address] Lisandra Jimenez MD 11/17/2024Travelfrom Last 3 Months Immunizations ImmunizationAdministration DatesNext DueInfluenza, High Dose Seasonal, Preservative Free02/03/2024,01/22/2019,01/20/2018,01/18/2017,01/17/2016, 01/12/2015,01/11/2014Influenza, High-dose Seasonal, Quadrivalent, Preservative Free01/28/2023,02/06/2022,01/26/2021,01/27/2020,01/22/2019,01/18/2017Influenza, injectable, quadrivalent, preservative free01/20/2018Influenza, seasonal, lifymbrhzi67/20/2004,04/27/2003,04/27/2002,04/01/2001Influenza, seasonal, injectable, preservative free02/06/2012Influenza, seasonal, intradermal, preservative free02/06/2013Moderna Bivalent Booster Gqqcpgexwrg95/11/2022Moderna SARS-CoV-2 50mcg/0.5mL Plazvma45/11/2022Pneumococcal Conjugate PCV 13001/17/2016 Pneumococcal Polysaccharide QXRE3536,03/08/1999RSV, recombinant, protein subunit RSVpreF, adjuvant reconstitu, 120mcg/0.5mL, PF (Arexvy)04/08/2023Td (adult), 5 Lf tetanus toxoid, preservative free, erdhmavh51/15/2013Tdap 02/10/2013Zoster, Lpykpoyxeqr82/14/2019,01/22/2019Zoster, live01/26/2019, 12/23/2012 Family History Medical HistoryRelationNameCommentsLupusFatherStrokeFatherSchizophreniaMother RelationNameStatusCommentsFatherDeceasedMotherDeceased Social History Tobacco UseTypesPacks/DayYears UsedDateSmoking Tobacco: NeverSmokeless Tobacco: NeverAlcohol UseStandard Drinks/WeekCommentsNever0 (1 standard drink = 0.6 oz pure alcohol)Humiliation, Afraid, Rape, and Kick questionnaireAnswerDate RecordedWithin the last year, have you been afraid of your partner or ex-partner?No12/10/2022Within the last year, have you been humiliated or emotionally abused in other ways by your partner or ex-partner?No12/10/2022 Within the last year, have you been kicked, hit, slapped, or otherwise physically hurt by your partner or ex-partner?No12/10/2022Within the last year, have you been raped or forced to have any kind of sexual activity by your part ner or ex-partner?No12/10/2022Social Connection and Isolation PanelAnswerDate RecordedIn a typical week, how many times do you talk on the phone with family, friends, or neighbors?Three times a week12/10/2022How often do you get together with friends or relatives?More than three times a week12/10/2022ttends Pentecostalism ServicesNot on file12/10/2022o you belong to any clubs or organizations such as jehovah's witness groups, unions, fraternal or athletic groups, or school groups?Yes12/10/2022How often do you attend meetings of the clubs or organizations you belong to?1 to 4 times per year12/10/2022re you , , , , never , or living with a partner?Never ljzmkxe8012/10/2022UDIT-CAnswerDate RecordedQ1: How often do you have a drink containing alcohol?Never12/10/2022Q2: How many drinks containing alcohol do you have on a typical day when you are drinking?Patient does not drink12/10/2022Q3: How often do you have six or more drinks on one occasion?Never12/10/2022Overall Financial Resource Strain (CARDIA)AnswerDate RecordedHow hard is it for you to pay for the very basics like food, housing, medical care, and heating?Not hard at all12/10/2022HQ-2AnswerDate RecordedPatient Health Questionnaire-2 Score0 10/16/2024Hunger Vital SignAnswerDate RecordedWithin the past 12 months, you worried that your food would run out before you got the money to buymore.Never true12/10/2022Within the past 12 months, the food you bought just didn't last and you didn't have money to get more.Never true12/10/2022RAPARE - TransportationAnswerDate RecordedIn the past 12 months, has lack of transportation kept you from medical appointments or from getting medications?No 12/10/2022In the past 12 months, has lack of transportation kept you from meetings, work, or from getting things needed for daily living?No12/10/2022 Housing Stability Vital SignAnswerDate RecordedIn the last 12 months, was there a time when you were not able to pay the mortgage or rent on time?No12/10/2022 Number of Places Lived in the Last YearNot on file12/10/2022In the last 12 months, was there a time when you did not have a steady place to sleep or slept in ashelter (including now)?No12/10/2022CommentsUnknownSex and Gender InformationValueDate RecordedSex Assigned at BirthNot on fileLegal SexFemale 07/11/2022 7:21 PM EDTGender IronattyCsjqrh24/15/2023 7:21 PM EDTSexual OrientationNot on file Last Filed Vital Signs Vital SignReadingTime TakenCommentsBlood Wwvnjuql344/68011/17/2024 10:17 AM EDT Lerdj4675/22/2025 10:17 AM CNMWphhebnyykk27.3 ??C (99.2 ??F)10/16/2024 2:10 PM EDTRespiratory Ukjz342311/17/2024 10:17 AM EDTOxygen Krguuvaxvf26%11/17/2024 10:17 AM EDTInhaled Oxygen Concentration--Srpnkh69.9 kg (107 lb 12.8 oz)11/17/2024 10:17 AM UMXJlawsr387.7 cm (5' 0.5 )11/17/2024 10:17 AM EDTBody Mass Index20.71 11/17/2024 10:17 AM EDT Plan of Treatment Health MaintenanceDue DateLast DoneCommentsInfluenza Vaccine (#1)12/28/2024 02/03/2024, 01/28/2023, 02/06/2022, Additional history existsMedicare Annual Wellness (AWV)6010/16/2024, 10/16/2024, 06/10/2023, Additional history existsPneumococcal Vaccine: 65+ SdlmxOlvrypbuk82/20/2016, 12/12/2012, 03/08/1999 Procedures Procedure NamePriorityDate/TimeAssociated NouyjrhzpPtrwjjlmPWUBMquvwvw29/22/2025 10:34 AM EDT URINALYSIS PIUSLVZnslzvh31/22/2025 10:34 AM EDT Dysuria CULTURE, URINE, BAGPUIHIeqmakc52/22/2025 10:34 AM EDT Dysuria POCT URINALYSIS PIGSLQFWCyykcxf09/22/2025 10:25 AM EDT Dysuria from Last 3 Months Results * NOTE (11/17/2024 10:34 AM EDT)ComponentValueRef RangeTest MethodAnalysis Time Performed AtPathologist SignatureNOTEQUESTComment: This urine was analyzed for the presence of WBC, RBC, bacteria, casts, and other formed elements. Only those elements seen were reported. Specimen (Source)Anatomical Location / LateralityCollection Method / Volume Collection TimeReceived Time11/17/2024 10:34 AM EDT11/17/2024 10:35 AM EDT Narrative Resulting Agency Comment Performing Organization Information ?Site ID: QPT ?Name: [facility] ?Address: [address] [place] [address], [address] [place], [place] [id number] ?Director: Mahad Gonzalez MD Authorizing ProviderResult TypeResult StatusLisandra Jimenez MDQUESTFinal Result Performing OrganizationAddressCity/State/[facility] CodePhone Number [facility]ST * (ABNORMAL) Urinalysis with reflex microscopic (clean catch) (11/17/2024 10:34 AM EDT)ComponentValueRef RangeTest MethodAnalysis TimePerformed AtPathologist SignatureCOLORYELLOWYELLOWQUESTAPPEARANCECLEARCLEARQUESTSPECIFIC GRAVITY1.017 1.001 - 1.657YXDZXSR6.05.0 - 8.0QUESTGLUCOSENEGATIVENEGATIVEQUESTBILIRUBIN NEGATIVENEGATIVEQUESTKETONESNEGATIVENEGATIVEQUESTOCCULT BLOODNEGATIVENEGATIVE QUESTPROTEINNEGATIVENEGATIVEQUESTNITRITENEGATIVENEGATIVEQUESTLEUKOCYTE ESTERASETRACE(A)NEGATIVEQUESTWBCNONE SEEN< OR = 5 /HPFQUESTRBCNONE SEEN< OR = 2 /HPFQUESTSQUAMOUS EPITHELIAL CELLSNONE SEEN< OR = 5 /HPFQUESTBACTERIANONE SEENNONE SEEN /HPFQUESTHYALINE CASTNONE SEENNONE SEEN /LPFQUESTSpecimen (Source)Anatomical Location / LateralityCollection Method / VolumeCollection TimeReceived TimeUrineUrine specimen obtained by clean catch procedure / Feorgse8611/17/2024 10:34 AM EDT11/17/2024 10:35 AM EDT Narrative Resulting Agency Comment Performing Organization Information ?Site ID: QPT ?Name: [facility] ?Address: [address] [place] [address], [address] [place] [id number] ?Director: Mahad Gonzalez MD Authorizing ProviderResult TypeResult StatusLisandra DONNELLY URINE ORDERABLES Final ResultPerforming OrganizationAddressCity/State/ZIP CodePhone Number [facility]ST * Urine culture (clean catch) (11/17/2024 10:34 AM EDT)ComponentValueRef Range Test MethodAnalysis TimePerformed AtPathologist SignatureMICRO [id number] QUESTSPECIMEN QUALITYAdequateQUESTSOURCE: (QUEST)URINEQUESTSTATUSFINALQUEST RESULTSEE NOTEQUESTComment: Mixed genital celso isolated. These superficial bacteria are not indicative of a urinary tract infection. No further organism identification is warranted on this specimen. If clinically indicated, recollect clean-catch, mid-stream urine and transfer immediately to Urine Culture Transport Tube. Specimen (Source)Anatomical Location / LateralityCollection Method / Volume Collection TimeReceived TimeUrineUrine specimen obtained by clean catch procedure / Fezjkys2711/17/2024 10:34 AM EDT11/17/2024 10:35 AM EDT Narrative Resulting Agency Comment Performing Organization Information ?Site ID: QPT ?Name: [facility] ?Address: [address] [place] [phone] ?Director: Mahad Gonzalez MD Authorizing ProviderResult TypeResult StatusLisandra DONNELLY MICROBIOLOGY - GENERAL ORDERABLESFinal ResultPerforming OrganizationAddressCity/State/ZIP Code Phone Number [facility] * (ABNORMAL) POCT Urinalysis dipstick (11/17/2024 10:25 AM EDT)ComponentValueRef RangeTest MethodAnalysis TimePerformed AtPathologist SignatureColor, UAYellow Clarity, UAClearGlucose, UANegativeNegative - 1999(110) ++++ mg/dLBilirubin, UANegativeNegative - 4(70) +++ mg/dLKetones, UANegativeNegative - 160(16) ++++ mg/dLSpec Grav, UA1.0151 - 1.03Blood, UAPositiveNegative - 50 Dallin/mcLpH, UA5.0 5 - 9Protein, UANegativeNegative - 2000(20) ++++ mg/dLUrobilinogen, UA1.00.2 - 12 mg/dLLeukocytes, UA1+Negative - 500+++ José/mcLNitrite, UANegativeNegative - PositiveSpecimen (Source)Anatomical Location / LateralityCollection Method / VolumeCollection TimeReceived WxmzGxdmz32/22/2025 10:25 AM EDT Narrative Authorizing ProviderResult TypeResult StatusSamanthaandrey Kwong Tony MDPOINT OF CARE TEST ENTER/EDIT ORDERABLESFinal Result from Last 3 Months Insurance Care Teams Team MemberRelationshipSpecialtyStart DateEnd Date Benji Cantrell MD [address] [facility] [address] [place], [place] [phone] PCP - [employer]04/29/21 Lisandra Jimenez MD [address] [place], [place] [phone] [facility]09/10/22
--- OUTSIDE RECORDS SUMMARY | 2025-02-17 12:40 | XMS_ITS | Clinical Summary ---
Author Organization [facility] tem Address [id number] [place] [address] Care Team Providers Care Fruit Raiser Name Role Phone Lisandra Jimenez MD Primary Care Provider [phone] Allergies Active AllergyReactionsCriticalityNoted DateCommentsDiphenhydramine HclLow 03/25/2018 MADE HER VERY SLEEPY Sulfa (Sulfonamide Antibiotics)Other (See Comments)09/01/2021 Medications MedicationSigDispense QuantityRefillsLast FilledStart DateEnd DateStatus FAMOTIDINE (PEPCID ORAL) Take 20 mg by mouth in the morning.Active fluticasone propionate (FLONASE) 50 mcg/actuation nasal spray Administer 1 spray into each nostril in the morning.Active azelastine (OPTIVAR) 0.05 % ophthalmic solution Administer 1 drop to both eyes in the morning and 1 drop before bedtime.Active acetaminophen (TYLENOL EXTRA STRENGTH) 500 mg tablet Take 1 tablet (500 mg total) by mouth every 6 (six) hours as needed for pain. Active alendronate (FOSAMAX) 70 mg tablet Take 1 tablet (70 mg total) by mouth every 7 days. Takes it every Saturday04/16/2022ctive metoprolol tartrate (LOPRESSOR) 25 mg tablet Take 1 tablet (25 mg total) by mouth in the morning and 1 tablet (25 mg total) before bedtime. 60 tablet ctive benzonatate (TESSALON PERLES) 100 mg capsule Take 1 capsule (100 mg total) by mouth 3 (three) times a day as needed for cough. 20 capsule 4Active Active Problems ProblemNoted DateDiagnosed DateCOVID-19001/10/2024Low back pain without sciatica 4Postoperative anemia due to acute blood loss12/30/2022Tachycardia 3Primary localized osteoarthritis of left hip12/26/2022orokeratosis 11/29/2022cquired hallux qfshna5610/10/2022rthritis, lumbar spine10/10/2022 Disorder of eygolk3404/05/2022 Overview (04/05/2022): Added automatically from request for surgery [id number] Acquired hammer toe of right foot02/22/2022ge related leeykgrfcelz78/27/2022 Degeneration of lumbar intervertebral disc02/22/2022egenerative scoliosis in adult eqsyghb3102/22/2022Gastroesophageal reflux qpcaieo9202/22/2022Lumbosacral spondylosis without ibjocmvhwb14/27/2022Other idiopathic scoliosis, thoracolumbar fkxjdr2502/22/2022Thoracic spondylosis without xxzqiyfzxn54/27/2022 Resolved Problems ProblemNoted DateDiagnosed DateResolved DateS/P hip replacement, left12/29/2022 12/30/20223358Ntvszbeun42/27/202209/rthritis of left hip/06/2022 Social History Tobacco UseTypesPacks/DayYears UsedDateSmoking Tobacco: NeverSmokeless Tobacco: Never Tobacco Cessation:Counseling Given: Not Answered Alcohol UseStandard Drinks/WeekCommentsNo0 (1 standard drink = 0.6 oz pure alcohol)[facility] UtilitiesAnswerDate RecordedIn the past 12 months has the electric, gas, oil, or water company threatened to shut off services in your home?No 01/11/2024UDIT-CAnswerDate RecordedFrequency of Alcohol ConsumptionNever 04/03/2018Average Number of DrinksNot on file04/03/2018Frequency of Binge DrinkingNot on file04/03/2018PRAPARE - TransportationAnswerDate RecordedIn the past 12 months, has lack of transportation kept you from medical appointments or from getting medications?No01/11/2024In the past 12 months, has lack of transportation kept you from meetings, work, or from getting things needed for daily living?No01/11/2024Housing InstabilityAnswerDate RecordedAre you worried or concerned that in the next two months you may not have stable housing that you own, rent or stay in as a part of a household?No4ChildcareAnswer Date KnukukxsXzfuwqsukOwfybkn75/12/2019EmploymentAnswerDate RecordedEmployment Otdvsyc3510/08/2018Hunger ScreeningAnswerDate RecordedWithin the past 12 months we worried whether our food would run out before we got money to buy more.Never True01/11/2024Within the past 12 months the food we bought just didn't last and we didn't have money to get more.Never True4Purpose - LifeAnswerDate RecordedPurpose and direction in bpxcNnheekr87/11/2021CommentsNoSex and Gender InformationValueDate RecordedSex Assigned at BirthNot on fileLegal Sex Cbtthl9212/02/2014 11:41 AM EDTGender IdentityNot on fileSexual OrientationNot on file Last Filed Vital Signs Vital SignReadingTime TakenCommentsBlood Tfmyvsfr902/69001/12/2024 8:14 AM EDT Danqw353501/12/2024 8:14 AM IDISuuvccenyle56.1 ??C (98.7 ??F)01/12/2024 8:14 AM EDTRespiratory Jgjf131601/12/2024 8:14 AM EDTOxygen Fhpusbdgmq85%01/12/2024 8:14 AM EDTInhaled Oxygen Concentration--Mytikn43.6 kg (113 lb 12.1 oz)01/11/2024 5:00 AM KPNVmjdhw837.9 cm (5' 0.98 )01/11/2024 12:48 AM EDTBody Mass Index21.51 01/11/2024 12:48 AM EDT Plan of Treatment Health MaintenanceDue DateLast DoneCommentsDepression Qvkmkjxjs62/18/1958Fall Risk Odwstpbwr83/18/2011DTaP,Tdap and Td Vaccines (3 - Td or Tdap)02/10/2023 02/10/2013, 02/10/2013COVID-19 Vaccine ( season)5106/08/2022, 02/06/2022, 07/28/2021, Additional history existsInfluenza Iwxmasz3212/28/2024 01/28/2023, 02/06/2022, 01/26/2021, Additional history existsTobacco Screening 5001/11/2024Zoster (Shingles) OrbcultXbqwbwbbc58/14/2019, 01/26/2019, 01/22/2019, Additional history exists Goals GoalPatient Goal TypeAssociated ProblemsRecent ProgressPatient-Stated?Author Home Yadira Wyman LSW Note: Evaluation of progress towards goal: Home with support from friend (staying with pt) and [facility] [employer] ImplantedTypeAreaManufacturerDevice IdentifierShelf Expiration DateModel / Serial / LotLens Iol Ultrasert 11.5d - [id number] - [id number] Implanted:Qty: 1 on 04/03/[facility] [employer]02/27/2020AU00T0 11.5 / [id number] / NALens Iol Ultrasert 13.0d - [id number] - [id number] Implanted:Qty: 1 on 08/28/2018 by Marcia Rodriguez MD at [facility]: [id number] 13.0 / [id number] / NAShell Actb 48mm Hip 3 Hl Clr Cd [place] G7 C Hmsphr - Sna - [id number] Implanted:Qty: 1 on 12/26/2022 [facility]: HipZimmer [id number] / NA / [id number] Actb 32mm C Vivacit-E Lum G7 Hip Strl Lf - Sna - [id number] Implanted:Qty: 1 on 12/26/2022 by Andrea Lui, DO at [facility] ImplantLeft: HipZimmer [id number] / NA / [id number] Fem 137d 1 04/11 37mm Fitmore Protasul-64 Hip Rgh Blast - Sna - [id number] Implanted:Qty: 1 on 12/26/2022 by Andrea Lui DO at [facility] ImplantLeft: HipZimmer Uxrckx27101.96989.201 / NA / [id number] Fem 32mm 0mm Vrsy Cocr Hip Rpl [id number] - [id number] - [id number] Implanted:Qty: 1 on 12/26/2022 by Andrea Lui DO at [facility] ImplantLeft: HipZimmer [id number] / [id number] / [id number] Bn 30mm 6.5mm St Actb Grady Trlg Strl Rpl [id number] - Sna - [id number] Implanted:Qty: 1 on 12/26/20[facility] HipZimmer [id number] / NA / [id number] Bn 25mm 6[address]5mm St Hip Trlg Strl Rpl [id number] - Sna - [id number] Implanted:Qty: 1 on 12/26/2022 by [facility]: HipZimmer [id number] / NA / [id number] Bn 15mm 6[address]5mm St Hip Actb Trlg Strl Rpl [id number] - Sna - [id number] Implanted:Qty: 1 on 12/26/2022 by [facility]: HipZimmer Lecxbc70/25/[id number] / NA / [id number] Insurance Advance Directives TypeDate RecordedPatient RepresentativeExplanationLiving Will01/17/2023 11:55 AM Durable Power of Attorney01/17/2023 11:54 AM * Full Code (Latest Code Status on File) Date ActivatedDate InactivatedComments01/10/2024 10:46 PM01/12/2024 2:32 PM * Full Code Date ActivatedDate InactivatedComments12/28/2022 6:14 PM01/01/2023 3:49 PM * Full Code Date ActivatedDate InactivatedComments12/26/2022 10:18 AM12/27/2022 7:36 PM Care Teams Team MemberRelationshipSpecialtyStart DateEnd Date Lisandra Jimenez MD [address] [place] [address] PCP - GeneralFamily Medicine01/10/24
--- NOTE | 2025-02-17 13:05 | PM.CN ---
Consult Note: HPI Data of Consult Patient: known to practice within the last 3 years Consult date: 02/17/25 Requesting Physician: Teresa Lynn NP Primary Care Provider: YOLA AMES Consult Narrative Reason for consult: low back pain Narrative: Marck galindo pleasant 79 year old female presents for evaluation of chronic low back pain unresponsive to > 6 weeks of PT/HEP, heat, ice, tylenol, NSAIDs. Pain today 0/10 aching, noting moderate pain with activity, improves with heat and sitting. Patient typically reports pain well controlled, including today she notes 100% improvement with her left SIJ injection however she wrote us a note that her tramadol is not helping, the injections are not helpful, and she would like prednisone or an anti-inflammatory. cc:: CC: Teresa Lynn NP Review of Systems ROS Musculoskeletal Reports: back pain and joint pain; Denies: extremity pain PFSH [facility] Medical History (Updated 09/10/24 @ 09:54 by Teresa Lynn NP) Low back pain ?M54.50 - Low back pain, unspecified (ICD-10) Surgical History History of hip replacement ?Z96.649 - Presence of unspecified artificial hip joint (ICD-10) Meds Home Medications and Allergies Home Medications ?Medication ?Instructions ?Recorded ?Confirmed ?Type acetaminophen 650 mg 650 mg PO Q12H PRN pain 08/19/23 02/08/25 History tablet,extended release (Tylenol Arthritis Pain) alendronate 70 mg tablet 70 mg PO QWEEK 08/19/23 02/08/25 History famotidine 20 mg tablet 20 mg PO DAILY 08/19/23 02/08/25 History ferrous sulfate 325 mg (65 mg 325 mg PO DAILY 08/19/23 02/08/25 History iron) tablet (Feosol) metoprolol succinate 25 mg 25 mg PO BID 08/19/23 02/08/25 History tablet,extended release 24 hr tolterodine 2 mg tablet 2 mg PO DAILY 08/19/23 02/08/25 History lidocaine 5 % topical patch 1 patch topical DAILY #30 ea 10/10/23 02/08/25 Rx tramadol 50 mg tablet 50 mg PO BID PRN pain, severe #14 07/27/24 02/08/25 Rx tabs Allergies Allergy/AdvReac Type Severity Reaction Status Date / Time No Known Drug Allergies Allergy Verified 02/08/25 12:12 Exam Constitutional Documenting provider has reviewed patient's vital signs: yes Common normals: no apparent distress, oriented x3, healthy appearing, alert and well nourished General appearance: cooperative HENMT Common normals: normocephalic, hearing grossly normal bilaterally and moist oral mucous membranes Head and scalp: normocephalic Eye Common normals: PERRL Pupil: PERRL Neck & C-Spine Common normals: full ROM General: normal visual inspection Chest Common normals: inspection of chest normal Respiratory Common normals: normal respiratory effort, no retractions and no use of accessory muscles Back & Pelvis Lumbar spine/lower back: ROM limited, pain with ROM, lumbar spinal tenderness and straight leg raise negative bilaterally Sacroiliac joints: SI joints normal Other: left sij negative leeann(patricks), gaenslens, thigh thrust, compression test strength 5/5 in BLE sensation intact BLE Neuro Common normals: oriented x3 Sensorium/orientation: alert Psych Common normals: mental status grossly normal, thought process normal, cooperative, affect normal, speech normal and activity/motor behavior normal Speech: normal speech Thought process: normal thought process Results Additional Findings Additional findings: If on a controlled substance or opioids, I have checked an [place]AR[place] report on this patient and there are no aberrancies noted in the prescribing history.??If on a controlled substance or opioid a drug screen was completed and reviewed within the last year, and if there has not been a drug screen completed we ordered one today to monitor higher risk, state monitored pain medication use. As part of providing excellent, safe, comprehensive care, the following was completed at our patient's visit: 1. A medication reconciliation and review to ensure accurate knowledge of current/active medications, including asking our patients to inform us about any [id number] medications or herbal remedies/nutritional supplements/alternative remedies. 2. A review to specifically ensure our patients have had annual screening for screening for depression, screening for tobacco use, and screening for unhealthy alcohol use. For concerning screenings had a discussion with the patient, provided patient education, and recommended follow-up with primary care provider when appropriate. If patient noted with a risk of falling, they received education on strength, gait, and balance training to prevent future risk of falling. Portions of this note may have been carried over from the previous visit and updated as appropriate. Please note this office utilizes paper charting in addition to the electronic medical record. A list of current medications, vitals, and PMH is available there as the clinical staff outside of myself do not have access to [employer] charting during the clinic day operations. As part of providing quality comprehensive care the current medications, vitals, and PMH were reviewed in the paper chart. Assessment and Plan Assessment and Plan (1) Sacroiliitis: Assessment and Plan: The patient has had over 3 months of moderate to severe left low back and SIJ pain with functional impairment and inadequate response to conservative care including NSAIDS (unless there are contraindication such as concurrent blood thinners), multiple oral or topical pain medications, and home exercise program/physical therapy.? Patient has completed >6 weeks of guided home exercise program and/or formal physical therapy program without relief of their symptoms.? The Oswestry Disability Index was completed, and the patient scored a 11% (2) Lumbar stenosis with neurogenic claudication: (3) Chronic use of opiate drug for therapeutic purpose: Plan 79 year old with chronic left sided low back pain, per patient and on exam her pain has improved. however she reports tramadol is not helpful and her injections arent helpful via a note her friend helped her write. I asked her about the inconsistency and she notes at the moment her pain is 0/10 and shes getting 100% improvement. but at times shes still having pain. dc tramadol. dc otc nsaids. start diclofenac 75mg bid prn pain take with food f/u 1 month, sooner if needed
== END 2025-02-17 12:37 | disposition home or self-care (01) ==
LOC: PM 12:37
PROVIDERS: PCP Family Medicine; Visit Provider Nurse Practitioner
DX: M46.1 Sacroiliitis, not elsewhere classified (principal); M48.062 Spinal stenosis, lumbar region with neurogenic claudication; Z79.891 Long term (current) use of opiate analgesic
CPT/HCPCS: G0463

== ENCOUNTER 2025-03-17 09:55 | Outpatient (OUT) | payer MEDICARE, SELFPAY ==
--- NOTE | 2025-03-17 10:40 | PM.CN ---
Consult Note: HPI Data of Consult Patient: known to practice within the last 3 years Consult date: 03/17/25 Requesting Physician: Teresa Lynn NP Primary Care Provider: YOLA AMES Consult Narrative Reason for consult: low back pain Narrative: Marck galindo pleasant 79 year old female presents for evaluation of chronic low back pain unresponsive to > 6 weeks of PT/HEP, heat, ice, tylenol, NSAIDs. Pain today 2/10 aching, noting moderate pain with activity, improves with heat and sitting. since last visit notes pain is well controlled. taking diclofenac 75mg once daily, can take up to twice daily if needed. cc:: CC: Teresa Lynn NP Review of Systems ROS Musculoskeletal Reports: back pain and joint pain; Denies: extremity pain [facility] Medical History (Updated 09/10/24 @ 09:54 by Teresa Lynn NP) Low back pain ?M54.50 - Low back pain, unspecified (ICD-10) Surgical History History of hip replacement ?Z96.649 - Presence of unspecified artificial hip joint (ICD-10) Meds Home Medications and Allergies Home Medications ?Medication ?Instructions ?Recorded ?Confirmed ?Type acetaminophen 650 mg 650 mg PO Q12H PRN pain 08/19/23 02/08/25 History tablet,extended release (Tylenol Arthritis Pain) alendronate 70 mg tablet 70 mg PO QWEEK 08/19/23 02/08/25 History famotidine 20 mg tablet 20 mg PO DAILY 08/19/23 02/08/25 History ferrous sulfate 325 mg (65 mg 325 mg PO DAILY 08/19/23 02/08/25 History iron) tablet (Feosol) metoprolol succinate 25 mg 25 mg PO BID 08/19/23 02/08/25 History tablet,extended release 24 hr tolterodine 2 mg tablet 2 mg PO DAILY 08/19/23 02/08/25 History lidocaine 5 % topical patch 1 patch topical DAILY #30 ea 10/10/23 02/08/25 Rx tramadol 50 mg tablet 50 mg PO BID PRN pain, severe #14 07/27/24 02/08/25 Rx tabs Allergies Allergy/AdvReac Type Severity Reaction Status Date / Time No Known Drug Allergies Allergy Verified 02/08/25 12:12 Exam Constitutional Documenting provider has reviewed patient's vital signs: yes Common normals: no apparent distress, oriented x3, healthy appearing, alert and well nourished General appearance: cooperative HENMT Common normals: normocephalic, hearing grossly normal bilaterally and moist oral mucous membranes Head and scalp: normocephalic Eye Common normals: PERRL Pupil: PERRL Neck & C-Spine Common normals: full ROM General: normal visual inspection Chest Common normals: inspection of chest normal Respiratory Common normals: normal respiratory effort, no retractions and no use of accessory muscles Back & Pelvis Lumbar spine/lower back: ROM limited, pain with ROM, lumbar spinal tenderness and straight leg raise negative bilaterally Sacroiliac joints: SI joints normal Other: left sij negative leeann(patricks), gaenslens, thigh thrust, compression test strength 5/5 in BLE sensation intact BLE Neuro Common normals: oriented x3 Sensorium/orientation: alert Psych Common normals: mental status grossly normal, thought process normal, cooperative, affect normal, speech normal and activity/motor behavior normal Speech: normal speech Thought process: normal thought process Results Additional Findings Additional findings: If on a controlled substance or opioids, I have checked an OARRS report on this patient and there are no aberrancies noted in the prescribing history.??If on a controlled substance or opioid a drug screen was completed and reviewed within the last year, and if there has not been a drug screen completed we ordered one today to monitor higher risk, state monitored pain medication use. As part of providing excellent, safe, comprehensive care, the following was completed at our patient's visit: 1. A medication reconciliation and review to ensure accurate knowledge of current/active medications, including asking our patients to inform us about any [id number] medications or herbal remedies/nutritional supplements/alternative remedies. 2. A review to specifically ensure our patients have had annual screening for screening for depression, screening for tobacco use, and screening for unhealthy alcohol use. For concerning screenings had a discussion with the patient, provided patient education, and recommended follow-up with primary care provider when appropriate. If patient noted with a risk of falling, they received education on strength, gait, and balance training to prevent future risk of falling. Portions of this note may have been carried over from the previous visit and updated as appropriate. Please note this office utilizes paper charting in addition to the electronic medical record. A list of current medications, vitals, and PMH is available there as the clinical staff outside of myself do not have access to [employer] charting during the clinic day operations. As part of providing quality comprehensive care the current medications, vitals, and PMH were reviewed in the paper chart. Assessment and Plan Assessment and Plan (1) Sacroiliitis: Assessment and Plan: The patient has had over 3 months of moderate to severe left low back and SIJ pain with functional impairment and inadequate response to conservative care including NSAIDS (unless there are contraindication such as concurrent blood thinners), multiple oral or topical pain medications, and home exercise program/physical therapy.? Patient has completed >6 weeks of guided home exercise program and/or formal physical therapy program without relief of their symptoms.? The Oswestry Disability Index was completed, and the patient scored a 4% (2) Lumbar stenosis with neurogenic claudication: Plan pain well controlled at this time. patient denies heartburn, indigestion, bleeding since starting diclofenac. can continue diclofenac 75mg bid prn pain take with food. f/u 2 months, sooner if needed
== END 2025-03-17 09:56 | disposition home or self-care (01) ==
LOC: PM 09:55
PROVIDERS: PCP Family Medicine; Visit Provider Nurse Practitioner
DX: M46.1 Sacroiliitis, not elsewhere classified (principal); M48.062 Spinal stenosis, lumbar region with neurogenic claudication
CPT/HCPCS: G0463